=== PATIENT | female | born 1935 | race Caucasian/White ===

== ENCOUNTER 2019-11-08 11:29 | Emergency (ER) | payer MEDICARE, BC, SELFPAY ==
--- NOTE | ~2019-11-08 | XR_ITS ---
EXAMINATION: XR chest 2V DATE: 11/08/2019 12:35 INDICATION: Cough. TECHNIQUE: Frontal and lateral views of the chest were obtained. COMPARISON: Chest 2 views 10/08/2018, CT abdomen and pelvis 07/25/2017 FINDINGS: There is mild atelectasis at the lung bases. No pleural effusion or pneumothorax. The heart size is normal. IMPRESSION: 1. Mild atelectasis at the lung bases. Reviewed, dictated and finalized at location A. OR WINDOWS SYSTEMS ENGINEER
[2019-11-08 11:28] VITALS: BP 144/77; PULSE 79; RESP 14; TEMP 36.9; O2SAT 97
--- NOTE | 2019-11-08 11:58 | ED.URI ---
HPI - URI/Sore Throat General Chief Complaint: Unspecified Stated Complaint: Cough Time Seen by Provider: 11/08/19 11:34 Source: patient and RN notes reviewed Mode of arrival: EMS Limitations: no limitations History of Present Illness HPI Narrative: Pt is a 84 y/o female with a Hx of COPD, asthma, and bronchitis, who presents to the ED via EMS with c/o cough starting 2 days ago. She notes that she was recently evaluated by her PCP, Dr. Montes, 6 days ago. Pt states that she developed a non-productive cough 2 days ago. She notes that she has also had wheezing and intermittent sinus congestion. Pt states that she developed urinary frequency earlier this morning. She denies any fever, SOB, nausea, or vomiting. MD elicited complaint: cough Pertinent past history: COPD, asthma and other (bronchitis) Onset (ago): day(s) (2) Associated symptoms: nasal congestion and other (urinary frequency; wheezing) Related Data Home Medications Medication Instructions Recorded Confirmed albuterol sulfate 2.5 mg INHALATION Q4H PRN 08/17/19 albuterol sulfate 90 mcg/actuation 1 puff INHALATION Q4H PRN 08/17/19 aerosol inhaler alprazolam 1 mg tablet 0.5 mg PO TID PRN tablet 08/17/19 atorvastatin 10 mg tablet 10 mg PO DAILY 08/17/19 clopidogrel 75 mg tablet 75 mg PO DAILY 08/17/19 dicyclomine 20 mg tablet 20 mg PO TID 08/17/19 Allergies Allergy/AdvReac Type Severity Reaction Status Date / Time cephalexin Allergy Severe RASH Verified 11/02/19 09:49 niacin Allergy Mild HIVES Verified 11/02/19 09:49 Penicillins Allergy Mild HIVES Verified 11/02/19 09:49 codeine Allergy Unknown TYLENOL #3 Verified 11/02/19 09:49 STOMACH UPSET Review of Systems Review of Systems: Narrative: CONSTITUTIONAL: Denies fever, chills, or sweats. ENT: Denies rhinorrhea, sore throat, or otalgia. Reports sinus congestion. CARDIOVASCULAR: Denies chest pain, palpitations, or edema. RESPIRATORY: Reports cough and wheezing. Denies dyspnea. GASTROINTESTINAL: Denies abdominal pain, nausea, vomiting, or diarrhea. GENITOURINARY: Denies dysuria or hematuria. Reports urinary frequency. All systems reviewed & are unremarkable except as noted in HPI and below PMFSH Past Medical History Medical History Anxiety Arthritis Asthma Back pain Bronchitis Cataracts, bilateral Chronic kidney disease, stage 3 COPD (chronic obstructive pulmonary disease) DDD (degenerative disc disease) Depression Emphysema of lung Gastrointestinal ulcer GERD (gastroesophageal reflux disease) HTN (hypertension) IBS (irritable bowel syndrome) Inguinal hernia Low vitamin B12 level Low vitamin D level Osteoporosis TIA (transient ischemic attack) UTI (urinary tract infection) Surgical History Surgical History History of bladder surgery bladder tie-up Hx of bilateral hip replacements Hx of cataract surgery Hx of tonsillectomy Social History Social History Smoking status: Former smoker Exam Narrative: Exam Narrative: GENERAL: Well-appearing, well-nourished, and in no acute distress. HEAD: Normocephalic, atraumatic. EYES: PERRLA and EOMI. ENT: Nares clear, mild rhinorrhea,no epistaxis. Mucous membranes moist. NECK: Supple. CHEST: Upper airway rhonchi.. No respiratory distress. HEART: Regular rate and rhythm. No murmur heard. Normal peripheral pulses. ABDOMEN: Soft, nontender, nondistended, normal active bowel sounds. EXTREMITIES: Normal range of motion. No edema. SKIN: Warm, dry, no rash. NEURO: No focal deficits. Alert and oriented. Course Course Emergency Course: Patient presented for evaluation of cough and urinary frequency. Patient at the time of initial assessment is well-appearing, rhonchi in the upper airways, no wheezing or respiratory distress. IV access obtained and labs are drawn. No leukocytosis. Very mild hypokalemia.
[2019-11-08 12:09] VITALS: PULSE 81; RESP 18
[2019-11-08] MEDS: IPRATROPIUM BR 0.02% INH SOLN 0.5 MG/2.5 ML VIAL 1 MG INHALATION (12:09)
[2019-11-08] MEDS: ALBUTEROL SULFATE NEB 2.5 MG/0.5 ML INH 5 MG INHALATION (12:10)
[2019-11-08 12:14] LABS: Add Urine Microscopic? NO; Appearance Urine Clear (Clear); Bilirubin Urine Negative (Negative); Blood Urine Negative (Negative); Color Urine Colorless (Yellow); Glucose Urine UA Negative (Negative); Ketones Urine Negative (Negative); Leukocyte Esterase Ur Negative LEU/UL (Negative); Mucus Urine Rare /lpf; Nitrate Urine Negative (Negative); Protein Urine Negative (Negative); Specific Grav Ur 1.006 (1.001-1.035); Urobilinogen Urine Negative mg/dL (<2.0); WBC Urine 0-3 /hpf
[2019-11-08 12:22] VITALS: PULSE 90; RESP 18
[2019-11-08 12:33] LABS: Basophils Absolute Auto 0.1 K/mm3 (0.0-0.1); Basophils Percent Auto 0.7 % (0.2-1.2); Eosinophils Absolute Auto 0.2 K/mm3 (0-0.3); Eosinophils Percent Auto 1.7 % (0-4.4); Hematocrit 37.9 % (37.0-47.0); Hemoglobin 12.8 g/dL (12.0-15.0); Immature Granulocyte Absolute 0.21 K/mm3 (0.00-0.031); Immature Granulocyte Percent A 2.3 % (0-0.5); Lymphocytes Absolute Auto 1.82 K/mm3 (0.9-3.2); Lymphocytes Percent Auto 19.9 % (18.3-44.2); Mean Corpuscular HGB Conc 33.8 g/dl (32-36); Mean Corpuscular Hemoglobin 28.8 pg (26-34); Mean Corpuscular Volume 85.2 fl (80-100); Mean Platelet Volume 8.8 fl (7.4-10.4); Monocytes Percent Auto 10.7 % (2.6-8.5); Neutrophils Absolute Auto 5.9 K/mm3 (1.3-6.7); Neutrophils Percent Auto 64.7 % (45.5-73.1); Platelet Count Result 368 k/mm3 (150-375); Red Blood Count 4.45 M/mm3 (4.2-5.4); Red Cell Distribution Width 14.5 % (11.5-14.5); White Blood Count 9.2 K/mm3 (4.5-10.0)
[2019-11-08 12:47] LABS: Blood Urea Nitrogen 18 mg/dL (7-17); Calcium 9.2 mg/dL (8.4-10.2); Carbon Dioxide 31 mmol/L (22-30); Chloride 95 mmol/L (98-107); Estimated CRCL calculation 54 ml/min; Estimated Glomerular Filt Rate > 60; Glucose 96 mg/dL (65-105); Potassium 3.2 mmol/L (3.4-5.0); Sodium 138 mmol/L (137-145)
[2019-11-08 13:02] VITALS: BP 124/69; PULSE 103; RESP 17; O2SAT 94
[2019-11-08] MEDS: POTASSIUM CHLORIDE 20 MEQ PACKET (FOR LIQUID) 40 MEQ PO (13:07)
--- NOTE | 2019-11-08 13:13 | PC.NURSE ---
called three numbers for pt w/ no answers - pt req for ride home
[2019-11-08 13:47] VITALS: BP 103/79; PULSE 105; RESP 20; O2SAT 96
== END 2019-11-08 14:22 ==
PROVIDERS: Emergency Provider Emergency Medicine; PCP Family Medicine
DX: J45.909 Unspecified asthma, uncomplicated (principal); J43.9 Emphysema, unspecified; M19.90 Unspecified osteoarthritis, unspecified site; I12.9 Hypertensive chronic kidney disease with stage 1 through stage 4 chronic kidney disease, or unspecified chronic kidney disease; N18.3 Chronic kidney disease, stage 3 (moderate); K21.9 Gastro-esophageal reflux disease without esophagitis; K58.9 Irritable bowel syndrome, unspecified; F41.9 Anxiety disorder, unspecified; F32.9 Major depressive disorder, single episode, unspecified; M81.0 Age-related osteoporosis without current pathological fracture; Z86.73 Personal history of transient ischemic attack (TIA), and cerebral infarction without residual deficits; Z87.440 Personal history of urinary (tract) infections; Z96.643 Presence of artificial hip joint, bilateral; Z87.891 Personal history of nicotine dependence
CPT/HCPCS: 36415; 51701; 71046; 80048; 81003; 85025; 87804; 94640; 99283; A9270

== ENCOUNTER 2019-11-11 13:26 | Outpatient (CLI) | payer MEDICARE, BC, SELFPAY ==
[2019-11-11 14:29] LABS: Blood Urea Nitrogen 26 mg/dL (7-17); Calcium 9.6 mg/dL (8.4-10.2); Carbon Dioxide 31 mmol/L (22-30); Chloride 94 mmol/L (98-107); Estimated Glomerular Filt Rate 60; Glucose 135 mg/dL (65-105); Magnesium 1.5 mg/dL (1.6-2.3); Potassium 3.5 mmol/L (3.4-5.0); Sodium 136 mmol/L (137-145)
[2019-11-11 15:16] LABS: Vitamin D 25 Hydroxy 27.7 ng/mL
== END 2019-11-11 13:27 | disposition home or self-care (01) ==
LOC: ANHLAB 13:29
PROVIDERS: PCP Family Medicine; Visit Provider Nurse Practitioner Family
DX: N18.3 Chronic kidney disease, stage 3 (moderate) (principal); E55.9 Vitamin D deficiency, unspecified
CPT/HCPCS: 36415; 80048; 82306; 83735

== ENCOUNTER 2020-03-16 09:31 | Outpatient (CLI) | payer MEDICARE, BC, SELFPAY ==
[2020-03-16 10:22] LABS: Albumin Level 4.1 g/dL (3.5-5.1); Blood Urea Nitrogen 27 mg/dL (7-17); Calcium 9.1 mg/dL (8.4-10.2); Carbon Dioxide 29 mmol/L (22-30); Chloride 96 mmol/L (98-107); Estimated Glomerular Filt Rate 47; Glucose 143 mg/dL (65-105); Phosphorus 4.1 mg/dL (2.5-4.5); Sodium 137 mmol/L (137-145)
[2020-03-16 10:34] LABS: Parathyroid Intact 105.7 pg/mL (7.5-53.5)
[2020-03-16 11:07] LABS: Creatinine Urine 13.6 mg/dL; Total Protein Urine Random 11 mg/dL
== END 2020-03-16 09:32 | disposition home or self-care (01) ==
LOC: ANHLAB 09:34
PROVIDERS: PCP Family Medicine; Visit Provider Internal Medicine Nephrology
DX: N18.3 Chronic kidney disease, stage 3 (moderate) (principal); I12.9 Hypertensive chronic kidney disease with stage 1 through stage 4 chronic kidney disease, or unspecified chronic kidney disease; R80.8 Other proteinuria
CPT/HCPCS: 36415; 80069; 82306; 82570; 83970; 84156

== ENCOUNTER 2020-03-28 09:13 | Outpatient (CLI) | payer MEDICARE, BC, SELFPAY ==
--- NOTE | ~2020-03-28 | US_ITS ---
EXAMINATION: US renal BI EXAM DATE: 03/28/2020 10:04 INDICATION: Chronic kidney disease.. TECHNIQUE: Multiple grayscale and Doppler images of the kidneys were obtained (by a technologist who performed the scan) and subsequently reviewed. Comparison is made to prior examination from 7. FINDINGS: There is bilateral renal cortical thinning. Right kidney: There is normal contour and echogenicity. It measures 9.1 x 5.8 x 6.2 centimeters. Th ere are no focal renal lesions identified. There is no hydronephrosis. Left kidney: There is normal contour and echogenicity. It measures 11.3 x 5.9 x 6.1 centimeters. Th ere are no focal renal lesions identified. There is no hydronephrosis. Bladder unremarkable. IMPRESSION: 1. Mild bilateral renal cortical thinning. Reviewed, dictated and finalized at location A.
== END 2020-03-28 09:14 | disposition home or self-care (01) ==
PROVIDERS: PCP Family Medicine; Visit Provider Internal Medicine Nephrology
DX: N18.3 Chronic kidney disease, stage 3 (moderate) (principal)
CPT/HCPCS: 76775

== ENCOUNTER 2020-05-11 10:04 | Outpatient (CLI) | payer MEDICARE, BC, SELFPAY ==
--- NOTE | ~2020-05-11 | MM_ITS ---
EXAMINATION: MM screening christian BI w ebony HISTORY: Screening TECHNIQUE: Craniocaudal and mediolateral oblique 3-D tomosynthesis images were obtained and synthetic 2-D images were generated. CAD analysis was submitted and interpreted. COMPARISON: Comparison to multiple prior studies sequentially, with oldest reviewed study dated 12/29. BREAST PARENCHYMAL COMPOSITION: There are scattered areas of fibroglandular density. FINDINGS: There are developing calcifications in the upper outer quadrant of the left breast. The rig ht breast is stable without evidence for malignancy. IMPRESSION: 1. Developing clustered nonspecific left breast calcifications. 2. Magnification views are recommended. BI-RADS Category 0: Incomplete: Needs additional imaging evaluation. Reviewed, dictated and finalized at location A.
== END 2020-05-11 10:05 | disposition home or self-care (01) ==
LOC: ANHIMG 10:09
PROVIDERS: PCP Family Medicine; Visit Provider Family Medicine
DX: Z12.31 Encounter for screening mammogram for malignant neoplasm of breast (principal); R92.8 Other abnormal and inconclusive findings on diagnostic imaging of breast
CPT/HCPCS: 77063; 77067

== ENCOUNTER 2020-05-30 09:04 | Outpatient (CLI) | payer MEDICARE, BC, SELFPAY ==
[2020-05-30 10:29] LABS: Basophils Absolute Auto 0.1 K/mm3 (0.0-0.1); Basophils Percent Auto 0.7 % (0.2-1.2); Eosinophils Absolute Auto 0.4 K/mm3 (0-0.3); Eosinophils Percent Auto 4.1 % (0-4.4); Hematocrit 36.3 % (37.0-47.0); Immature Granulocyte Absolute 0.17 K/mm3 (0.00-0.031); Immature Granulocyte Percent A 1.6 % (0-0.5); Lymphocytes Absolute Auto 2.23 K/mm3 (0.9-3.2); Lymphocytes Percent Auto 21.2 % (18.3-44.2); Mean Corpuscular HGB Conc 33.1 g/dl (32-36); Mean Corpuscular Hemoglobin 28.6 pg (26-34); Mean Corpuscular Volume 86.4 fl (80-100); Mean Platelet Volume 9.5 fl (7.4-10.4); Monocytes Absolute Auto 0.9 K/mm3 (0.1-0.6); Monocytes Percent Auto 8.6 % (2.6-8.5); Neutrophils Absolute Auto 6.7 K/mm3 (1.3-6.7); Neutrophils Percent Auto 63.8 % (45.5-73.1); Platelet Count Result 424 k/mm3 (150-375); Red Cell Distribution Width 13.7 % (11.5-14.5); White Blood Count 10.5 K/mm3 (4.5-10.0)
[2020-05-30 10:47] LABS: Alanine Aminotransferase 20 U/L (4-35); Albumin Level 3.8 g/dL (3.5-5.1); Alkaline Phosphatase 96 U/L (38-126); Anion Gap 8 mmol/L (8-16); Aspartate Amino Transferase 24 U/L (14-36); Bilirubin,Total 0.6 mg/dL (0.2-1.3); Blood Urea Nitrogen 33 mg/dL (7-17); Calcium 9.1 mg/dL (8.4-10.2); Carbon Dioxide 33 mmol/L (22-30); Chloride 96 mmol/L (98-107); Estimated Glomerular Filt Rate 47; Glucose 119 mg/dL (65-105); Potassium 2.9 mmol/L (3.4-5.0); Sodium 137 mmol/L (137-145)
[2020-05-30 11:18] LABS: Vitamin D 25 Hydroxy 28.7 ng/mL
== END 2020-05-30 09:05 | disposition home or self-care (01) ==
PROVIDERS: PCP Family Medicine; Visit Provider Family Medicine
DX: K58.9 Irritable bowel syndrome, unspecified (principal); I10 Essential (primary) hypertension; E55.9 Vitamin D deficiency, unspecified; R79.89 Other specified abnormal findings of blood chemistry; E53.8 Deficiency of other specified B group vitamins
CPT/HCPCS: 36415; 80048; 80076; 82306; 82607; 84443; 85025

== ENCOUNTER 2020-06-15 11:54 | Outpatient (CLI) | payer MEDICARE, BC, SELFPAY ==
--- NOTE | ~2020-06-15 | MM_ITS ---
EXAMINATION: MM diagnostic mammo unilat LT HISTORY: Follow-up left breast calcifications TECHNIQUE: Additional 3-D tomosynthesis images of the left breast were performed and synthetic 2-D im ages were generated. CAD analysis was submitted and interpreted. COMPARISON: Comparison to multiple prior studies sequentially, with oldest reviewed study dated 01/04. BREAST PARENCHYMAL COMPOSITION: Breast composed of scattered areas of fibroglandular density FINDINGS: There are developing indeterminant left breast calcifications in the upper outer quadrant o f the left breast, middle third. There are no suspicious masses or architectural distortion. IMPRESSION: 1. Developing coarse indeterminate left breast calcifications, upper outer quadrant. 2. Stereotactic left breast biopsy recommended. BI-RADS category 4, suspicious findings. Reviewed, dictated and finalized at location A. IMPRESSION: 1. Developing coarse indeterminate left breast calcifications, upper outer quad rant. 2. Stereotactic left breast biopsy recommended. BI-RADS category 4, suspicious findings.
== END 2020-06-15 11:55 | disposition home or self-care (01) ==
LOC: ANHIMG 11:58
PROVIDERS: PCP Family Medicine; Visit Provider Family Medicine
DX: R92.8 Other abnormal and inconclusive findings on diagnostic imaging of breast (principal)
CPT/HCPCS: 77065

== ENCOUNTER 2020-07-11 09:12 | Outpatient (CLI) | payer MEDICARE, BC, SELFPAY ==
[2020-07-11 11:14] LABS: Anion Gap 10 mmol/L (8-16); Blood Urea Nitrogen 39 mg/dL (7-17); Calcium 9.2 mg/dL (8.4-10.2); Carbon Dioxide 36 mmol/L (22-30); Chloride 93 mmol/L (98-107); Estimated Glomerular Filt Rate 36; Glucose 97 mg/dL (65-105); Phosphorus 3.3 mg/dL (2.5-4.5); Potassium 2.9 mmol/L (3.4-5.0); Sodium 139 mmol/L (137-145)
[2020-07-11 11:33] LABS: Creatinine Urine 37.4 mg/dL; Total Protein Urine Random 11 mg/dL
== END 2020-07-11 09:13 | disposition home or self-care (01) ==
PROVIDERS: PCP Family Medicine; Visit Provider Internal Medicine Nephrology
DX: I12.9 Hypertensive chronic kidney disease with stage 1 through stage 4 chronic kidney disease, or unspecified chronic kidney disease (principal); N18.30 Chronic kidney disease, stage 3 unspecified; R80.8 Other proteinuria
CPT/HCPCS: 36415; 80069; 82570; 84156

== ENCOUNTER 2020-08-22 08:23 | Outpatient (CLI) | payer MEDICARE, BC, SELFPAY ==
[2020-08-22 09:08] LABS: Albumin Level 3.8 g/dL (3.5-5.1); Anion Gap 8 mmol/L (8-16); Blood Urea Nitrogen 35 mg/dL (7-17); Calcium 8.9 mg/dL (8.4-10.2); Carbon Dioxide 34 mmol/L (22-30); Chloride 96 mmol/L (98-107); Estimated Glomerular Filt Rate 39; Glucose 110 mg/dL (65-105); Phosphorus 4.2 mg/dL (2.5-4.5); Potassium 3.9 mmol/L (3.4-5.0); Sodium 138 mmol/L (137-145)
== END 2020-08-22 08:24 | disposition home or self-care (01) ==
PROVIDERS: PCP Family Medicine; Visit Provider Internal Medicine Nephrology
DX: N18.32 Chronic kidney disease, stage 3b (principal)
CPT/HCPCS: 36415; 80069

== ENCOUNTER 2020-09-14 12:04 | Outpatient (CLI) | payer MEDICARE, BC, SELFPAY ==
--- NOTE | ~2020-09-14 | MM_ITS ---
MM post biopsy diagnostic LT, MM stereotactic specimen LT, MM stereotactic bx LT EXAMINATION: MM post biopsy diagnostic LT, MM stereotactic specimen LT, MM stereotactic bx LT DATE: Roman Finney M.D. INDICATION: Abnormal mammogram with calcifications in the left breast. Stereotactic core biopsy is r equested evaluate for malignancy.] TECHNIQUE AND FINDINGS: The risks and potential benefits of the procedure were discussed with the patient and written informe d consent was obtained. The patient was placed in the prone position clustered at the table with the left breast in craniocaudal compression, and the area of interest was localized and targeted utilizi ng digital imaging with stereotaxis. After sterile preparation of the skin, 1% lidocaine was utilized for local anesthesia at the skin pun cture site and 1% lidocaine with epinephrine was utilized for deeper local anesthesia/is about the bi opsy site. A 9G Sepaton vacuum assisted biopsy needle was advanced to the level of the calcification o f interest from a cephalad approach utilizing stereotactic guidance and a total of 6 tissue core biop sies were obtained. A specimen radiograph demonstrates that the calcifications of interest are included within the tissue cores. A tissue marker clip was then placed at the biopsy site. The needle was removed and hemosta sis was achieved. The patient tolerated the procedure well and there is no evidence of significant i mmediate complication. The patient was given verbal as well as written postprocedural instructions p rior to discharge from the department. Tissue cores were submitted to surgical pathology for histolo gic analysis. A 2-view left unilateral digital mammogram was obtained post procedure and this demonstrates that the tissue marker clip is in expected position.] IMPRESSION: 1. Successful stereotactic biopsy of calcifications in the upper outer quadrant of the left breast, followed by tissue marker clip placement. Please refer to pathology report for histologic analysis. Reviewed, dictated and finalized at location A. ITORY REPRESENTATIVE IMPRESSION: 1. Successful stereotactic biopsy of calcifications in the upper outer quadran t of the left breast, followed by tissue marker clip placement. Please refer t o pathology report for histologic analysis. IMPRESSION: 1. Successful stereotactic biopsy of calcifications in the upper outer quadran t of the left breast, followed by tissue marker clip placement. Please refer t o pathology report for histologic analysis.
== END 2020-09-14 12:05 | disposition home or self-care (01) ==
PROVIDERS: PCP Family Medicine; Visit Provider Family Medicine
DX: R92.8 Other abnormal and inconclusive findings on diagnostic imaging of breast (principal)
CPT/HCPCS: 19081; 77065; 88305; A4648

== ENCOUNTER 2020-09-26 09:58 | Outpatient (CLI) | payer MEDICARE, BC, SELFPAY ==
[2020-09-26 10:40] LABS: Basophils Absolute Auto 0.1 K/mm3 (0.0-0.1); Basophils Percent Auto 0.7 % (0.2-1.2); Eosinophils Absolute Auto 0.5 K/mm3 (0-0.3); Eosinophils Percent Auto 4.3 % (0-4.4); Hematocrit 37.3 % (37.0-47.0); Hemoglobin 12.2 g/dL (12.0-15.0); Immature Granulocyte Absolute 0.25 K/mm3 (0.00-0.031); Immature Granulocyte Percent A 2.3 % (0-0.5); Lymphocytes Absolute Auto 2.38 K/mm3 (0.9-3.2); Lymphocytes Percent Auto 22.1 % (18.3-44.2); Mean Corpuscular HGB Conc 32.7 g/dl (32-36); Mean Corpuscular Volume 88.8 fl (80-100); Mean Platelet Volume 8.9 fl (7.4-10.4); Monocytes Absolute Auto 1.1 K/mm3 (0.1-0.6); Monocytes Percent Auto 10.1 % (2.6-8.5); Neutrophils Absolute Auto 6.5 K/mm3 (1.3-6.7); Neutrophils Percent Auto 60.5 % (45.5-73.1); Platelet Count Result 396 k/mm3 (150-375); Red Cell Distribution Width 14.2 % (11.5-14.5); White Blood Count 10.8 K/mm3 (4.5-10.0)
[2020-09-26 10:51] LABS: Anion Gap 7 mmol/L (8-16); Blood Urea Nitrogen 33 mg/dL (7-17); Calcium 9.1 mg/dL (8.4-10.2); Carbon Dioxide 34 mmol/L (22-30); Chloride 94 mmol/L (98-107); Estimated Glomerular Filt Rate 22; Glucose 100 mg/dL (65-105); Potassium 3.2 mmol/L (3.4-5.0); Sodium 135 mmol/L (137-145)
[2020-09-26 11:42] LABS: Vitamin D 25 Hydroxy 42.8 ng/mL
== END 2020-09-26 09:59 | disposition home or self-care (01) ==
PROVIDERS: PCP Family Medicine; Visit Provider Family Medicine
DX: N18.31 Chronic kidney disease, stage 3a (principal); E55.9 Vitamin D deficiency, unspecified; R79.89 Other specified abnormal findings of blood chemistry; E53.8 Deficiency of other specified B group vitamins
CPT/HCPCS: 36415; 80048; 82306; 82607; 85025

== ENCOUNTER 2020-10-03 10:00 | Outpatient (RCR) | payer MEDICARE, BC, SELFPAY ==
--- NOTE | 2020-09-21 13:48 | PTOPEVAL ---
PHYSICAL THERAPY EVALUATION AND PLAN OF CARE 09-21-2020 Thank you for referring Lucille Vasques to [facility].? She is scheduled to be seen for therapy? 2x/week for 5 weeks. Please review, sign, date and return this plan of care CHRISTINA. I agree with and certify that the following plan of care is medically necessary. 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 software engineer; Respiratory History Hx Asthma Yes Hx Bronchitis Yes Hx Chronic Obstructive Pulmonary Disease Yes (COPD) Hx Emphysema Yes Gastrointestinal History Hx Gastroesophageal Reflux Disease Yes Genitourinary History Hx Other Genitourinary Disorders Yes: stage 3A kidney disease; Musculoskeletal History Hx Arthritis Yes: all over Hx Back Pain Yes Hx Joint Replacement Yes: R and L THR; Hx Other Musculoskeletal Disorders Yes: R hip non surgical fracture 2019; Endocrine History Hx Hypothyroidism Yes: on med Other History Hx Other Medical Conditions Yes: current UTI- on meds;had breast biopsy last wk-negative Evaluation Information Problem Diagnosis B LE lymphedema Onset about 1 yr ago Prior Level of Function Activity Level (Last 3 Months) Occupation retired Hand Dominance Right Home Setting Home Type Apartment,Assisted Living Facility Mobility Assistive Devices (Used Last 3 Walker, Rollator Months) Comments Additional Prior Level of Function live in assisted living [facility]; she has assist with dressing, showers,meal prep, housekeeping, laundry; Was receiving therapy at [facility], but stopped since coming here, working on leg exercises, walking, balance; attend daily exercise classes at [facility] [place], sitting in chair; Pain Assessment Timing of Pain Assessment Timing of Pain Ass
--- NOTE | 2020-10-04 11:33 | PCPTNOTE ---
PHYSICAL THERAPY DISCHARGE 10-04-20 Attending Provider: Maritza Gutierrez MD Patient:Lucille Vasques Date of :1935 Mrs. Vasques has received 3 PT sessions, for the diagnosis of LE lymphedema. With the circumferential measurements of her legs, from the bottom of the foot up to 64 cm: R LE is 632.6 cm, decreased 6.7 cm and L LE is 631.1 cm, decreased by 6 cm, compared to the initial evaluation. There is less redness and not any fibrotic tissue over her lower legs. She has 15-20 mmHg compression knee highs to manage her lymphedema. The staff at the assisted living facility are assisting her with them. Lucille has been educated on self management of lymphedema, skin care, compression garment, LE exercises and self manual lymph drainage. She does not have any pain in her legs and the strength has increased. She will be discharged at this time. Lucille stated she wants to continue with the balance and strengthening therapy at the assisted living facility. The goals were partially achieved. Thank you for referring Mrs. Vasques to [facility]. Please review, sign, date and return this discharge summary CHRISTINA. I have been updated about the patient's current status and I agree with discharge from the above service at this time. Referring Physician Date
== END 2020-10-05 10:06 | disposition home or self-care (01) ==
LOC: ANHPT 10:00
PROVIDERS: PCP Family Medicine; Visit Provider Internal Medicine Nephrology
DX: I89.0 Lymphedema, not elsewhere classified (principal); R60.0 Localized edema; R53.1 Weakness
CPT/HCPCS: 97110; 97140; 97161

== ENCOUNTER 2020-11-02 08:58 | Outpatient (CLI) | payer MEDICARE, BC, SELFPAY ==
[2020-11-02 10:15] LABS: Albumin Level 3.8 g/dL (3.5-5.1); Anion Gap 8 mmol/L (8-16); Blood Urea Nitrogen 26 mg/dL (7-17); Carbon Dioxide 31 mmol/L (22-30); Chloride 99 mmol/L (98-107); Estimated Glomerular Filt Rate 36; Glucose 114 mg/dL (65-105); Phosphorus 3.3 mg/dL (2.5-4.5); Potassium 3.3 mmol/L (3.4-5.0); Sodium 138 mmol/L (137-145)
[2020-11-02 10:26] LABS: Parathyroid Intact 114.7 pg/mL (7.5-53.5)
[2020-11-02 10:53] LABS: Free T4 Free Thyroxine 1.29 ng/mL (0.78-2.19); Vitamin D 25 Hydroxy 50.4 ng/mL
== END 2020-11-02 08:59 | disposition home or self-care (01) ==
PROVIDERS: PCP Family Medicine; Referring Provider Internal Medicine Nephrology; Visit Provider Family Medicine
DX: R60.0 Localized edema (principal); I12.9 Hypertensive chronic kidney disease with stage 1 through stage 4 chronic kidney disease, or unspecified chronic kidney disease; N18.32 Chronic kidney disease, stage 3b; E03.9 Hypothyroidism, unspecified
CPT/HCPCS: 36415; 80069; 82306; 83970; 84439; 84443

== ENCOUNTER 2021-03-15 09:22 | Outpatient (CLI) | payer MEDICARE, BC, SELFPAY ==
[2021-03-15 10:16] LABS: Creatinine Urine 31.5 mg/dL; Total Protein Urine Random 11 mg/dL; Ur Ttl Prot Creatinine Ratio 0.35 mg/mg (0-0.20)
[2021-03-15 10:26] LABS: Albumin Level 3.6 g/dL (3.5-5.1); Anion Gap 7 mmol/L (8-16); Blood Urea Nitrogen 18 mg/dL (7-17); Calcium 9.2 mg/dL (8.4-10.2); Carbon Dioxide 29 mmol/L (22-30); Chloride 102 mmol/L (98-107); Estimated Glomerular Filt Rate 39; Glucose 96 mg/dL (65-105); Phosphorus 4.1 mg/dL (2.5-4.5); Potassium 4.5 mmol/L (3.4-5.0); Sodium 138 mmol/L (137-145)
== END 2021-03-15 09:23 | disposition home or self-care (01) ==
PROVIDERS: PCP Family Medicine; Referring Provider Family Medicine; Visit Provider Internal Medicine Nephrology
DX: N18.32 Chronic kidney disease, stage 3b (principal); I12.9 Hypertensive chronic kidney disease with stage 1 through stage 4 chronic kidney disease, or unspecified chronic kidney disease; R60.0 Localized edema
CPT/HCPCS: 36415; 80069; 82570; 84156

== ENCOUNTER 2021-03-19 02:42 | Day surgery (SDC) | payer MEDICARE, BC, SELFPAY ==
[2021-02-26 11:31] VITALS: BMI 37.8
[2021-03-19 09:22] VITALS: BP 150/74; PULSE 91; RESP 20; TEMP 36.2; O2SAT 98; BMI 37.1
--- NOTE | 2021-03-19 09:26 | WPDGICN ---
Assessment and Plan Assessment and plan (1) Vomiting: Code(s): R11.10 - Vomiting, unspecified Status: Acute Assessment and Plan: Patient complains of vomiting phlegm. Plan is for EGD to assess esophagus and stomach. It is uncertain whether this could be coming from throat production of phlegm or respiratory system as well. Further recommendations will be given after endoscopy. Patient has been treated with Nexium 40 mg p.o. daily and also given a trial of Zofran with no significant change in her vomiting. GI Consult Note Consult date/time: 03/19/21 09:26 HPI: Lucille Vasques is a 85 year old female Continues to complain of vomiting frequently. She states that she vomits phlegm. She states it is uncertain if it comes from her throat her stomach or her lungs. She denies any dysphagia. She does have abdominal pain that improves with bowel habits. She has had no bleeding or weight loss. Recently has complaints of poor dentition for which she anticipates seeing a dentist. She presents today for EGD because of complaints of vomiting phlegm. Review of Systems Review of Systems: All systems reviewed & are unremarkable except as noted in HPI and below PMFSH Past Medical History Medical History Anxiety Arthritis Asthma Back pain BMI 36.0-36.9,adult BMI 37.0-37.9, adult BMI 38.0-38.9,adult Bronchitis Cataracts, bilateral Chronic kidney disease, stage 3 COPD (chronic obstructive pulmonary disease) DDD (degenerative disc disease) Depression Emphysema of lung Gastrointestinal ulcer GERD (gastroesophageal reflux disease) HTN (hypertension) Hypothyroidism IBS (irritable bowel syndrome) Inguinal hernia Low vitamin B12 level Low vitamin D level Mild intermittent asthma without complication Osteoporosis Screening mammogram for high-risk patient TIA (transient ischemic attack) UTI (urinary tract infection) Ventral hernia without obstruction or gangrene Vitamin D deficiency Weakness Surgical History Surgical History History of bladder surgery bladder tie-up Hx of bilateral hip replacements Hx of cataract surgery Hx of tonsillectomy Family History Family History Mother Family history of suicide Patient's mother is Father Patient's father is , Onset Age: 76 Family history of malignant neoplasm Other Family history of cardiovascular disease Family history of coronary artery disease Hypertension Social History Social History Tobacco type: cigarettes Alcohol intake: never Substance use: never Substance use type: does not use Living arrangements: assisted living Additional living arrangements comments: [facility] Gender identity (if verbalized by the patient): Female Spiritual care concerns: No Meds Home Medications and Allergies Home Medications Medication Instructions Recorded Confirmed Type atorvastatin 10 mg tablet 10 mg PO DAILY 08/17/19 03/08/21 History albuterol sulfate 2.5 mg INHALATION Q4H PRN #90 ml 11/11/19 03/08/21 Rx cholecalciferol (vitamin D3) 125 125 mcg PO DAILY #30 cap 04/18/20 03/08/21 Rx mcg (5,000 unit) capsule vitamins B1 B6 B12 oral liquid 5 ml PO DAILY #240 ml 04/18/20 03/08/21 Rx potassium chloride 10 mEq 20 meq PO BID #60 tablet 06/06/20 03/08/21 Rx tablet,extended release bumetanide 2 mg tablet 2 mg PO BID 09/19/20 03/08/21 History spironolactone 25 mg tablet 12.5 mg PO DAILY tablet 09/19/20 03/08/21 History albuterol sulfate 90 mcg/actuation 2 puff INHALATION Q4H PRN #8.5 g 10/31/20 03/08/21 Rx aerosol inhaler fluticasone propionate 110 2 puff INHALATION .QD #12 g 10/31/20 03/08/21 Rx mcg/actuation HFA aerosol inhaler levothyroxine 75 mcg tablet 75 mcg PO DAILY #30 tablet 11/20/20
[2021-03-19] MEDS: LACTATED RINGERS 1,000 ML 150 ML IV CONT (09:37)
--- NOTE | 2021-03-19 09:42 | WPDANESEPPF ---
Anes - Initial Pre Proc Eval Procedure: Operation Date: 03/19/21 10:00 Proposed Procedures p Esophagogastroduodenoscopy - Johnny Iniguez MD Date/Time: 03/19/21 09:42 Surgeon: Johnny Iniguez MD Pre Op Diagnosis: vomiting, GERD Patient Data Age: 85 Gender: F Height: 1.68 m Weight: 104.5 kg Last Vital Signs Temp 36.2 C L 03/19/21 09:22 Pulse 91 03/19/21 09:22 Resp 20 03/19/21 09:22 BP 150/74 H 03/19/21 09:22 Pulse Ox 98 03/19/21 09:22 Allergies Allergy/AdvReac Type Severity Reaction Status Date / Time cephalexin Allergy Severe RASH Verified 03/19/21 09:21 codeine Allergy Unknown Unknown Verified 03/19/21 09:21 niacin Allergy Unknown Unknown Verified 03/19/21 09:21 Penicillins Allergy Unknown Unknown Verified 03/19/21 09:21 ciprofloxacin [From Cipro] AdvReac Mild GI upset Verified 03/19/21 09:21 Home Medications Medication Instructions Recorded Confirmed Type atorvastatin 10 mg tablet 10 mg PO DAILY 08/17/19 03/08/21 History albuterol sulfate 2.5 mg INHALATION Q4H PRN #90 ml 11/11/19 03/08/21 Rx cholecalciferol (vitamin D3) 125 125 mcg PO DAILY #30 cap 04/18/20 03/08/21 Rx mcg (5,000 unit) capsule vitamins B1 B6 B12 oral liquid 5 ml PO DAILY #240 ml 04/18/20 03/08/21 Rx potassium chloride 10 mEq 20 meq PO BID #60 tablet 06/06/20 03/08/21 Rx tablet,extended release bumetanide 2 mg tablet 2 mg PO BID 09/19/20 03/08/21 History spironolactone 25 mg tablet 12.5 mg PO DAILY tablet 09/19/20 03/08/21 History albuterol sulfate 90 mcg/actuation 2 puff INHALATION Q4H PRN #8.5 g 10/31/20 03/08/21 Rx aerosol inhaler fluticasone propionate 110 2 puff INHALATION .QD #12 g 10/31/20 03/08/21 Rx mcg/actuation HFA aerosol inhaler levothyroxine 75 mcg tablet 75 mcg PO DAILY #30 tablet 11/20/20 03/08/21 Rx bismuth subsalicylate 262 mg tablet 2 tablet PO Q30-60M PRN #30 tablet 01/11/21 03/08/21 Rx calcium polycarbophil 625 mg tablet 1,250 mg PO DAILY #90 tablet 01/11/21 03/08/21 Rx clopidogrel 75 mg tablet 75 mg PO DAILY #30 tablet 01/24/21 03/08/21 Rx irbesartan 300 mg tablet 300 mg PO DAILY #30 tablet 01/26/21 03/08/21 Rx docusate sodium 100 mg capsule 100 mg PO DAILY #30 cap 02/08/21 03/08/21 Rx escitalopram oxalate 10 mg tablet 10 mg PO DAILY 02/08/21 03/08/21 History esomeprazole magnesium 40 mg 40 mg PO DAILY #30 cap 02/08/21 03/08/21 Rx capsule,delayed release alprazolam 0.5 mg tablet 0.5 mg PO QID #120 tablet 02/22/21 03/08/21 Rx metolazone 5 mg tablet See Rx Instructions .ROUTE 02/26/21 03/19/21 Rx .COMPLEX #90 tablet montelukast 10 mg tablet 10 mg PO DAILY #90 tablet 02/26/21 03/19/21 Rx amlodipine 5 mg tablet 5 mg PO DAILY #30 tablet 03/07/21 03/19/21 Rx ondansetron HCl 4 mg tablet 4 mg PO DAILY PRN #30 tablet 03/14/21 03/19/21 Rx Patient hx anesthesia problems: none Family hx anesthesia problems: none PMFSH Past Medical History Medical History Anxiety Arthritis Asthma Back pain BMI 36.0-36.9,adult BMI 37.0-37.9, adult BMI 38.0-38.9,adult Bronchitis Cataracts, bilateral Chronic kidney disease, stage 3 COPD (chronic obstructive pulmonary disease) DDD (degenerative disc disease) Depression Emphysema of lung Gastrointestinal ulcer GERD (gastroesophageal reflux disease) HTN (hypertension) Hypothyroidism IBS (irritable bowel syndrome) Inguinal hernia Low vitamin B12 level Low vitamin D level Mild intermittent asthma without complication Osteoporosis Screening mammogram for high-risk patient TIA (transient ischemic attack) UTI (urinary tract infection) Ventral hernia without obstruction or gangrene Vitamin D deficiency Weakness Surgical History Surgical History History of bladder surgery bladder tie-up Hx of bilateral hip replacements Hx of cataract surgery Hx of tonsillectomy Family History Family History M
[2021-03-19] MEDS: BENZOCAINE (*SP) 60 ML SPRAY CAN (HURRICAINE) 1 SPRAY MUCOUS MEM (10:04)
[2021-03-19 10:06] VITALS: BP 121/71; PULSE 76; RESP 20; O2SAT 99
[2021-03-19 10:16] VITALS: BP 138/76; PULSE 72; RESP 20; O2SAT 98
[2021-03-19 10:26] VITALS: BP 153/56; PULSE 74; RESP 22; O2SAT 98
--- NOTE | 2021-03-19 10:36 | SUR.PHASEII ---
PER DR MARTINEZ PT TO RESUME PLAVIX TODAY, PT STATES UNDERSTANDING
== END 2021-03-19 10:42 | disposition home or self-care (01) ==
PROVIDERS: PCP Family Medicine; Visit Provider Internal Medicine Gastroenterology
PROC: 0DJ08ZZ Inspection of Upper Intestinal Tract, Via Natural or Artificial Opening Endoscopic (ICD-10-PCS; CPT 43235; principal; 2021-03-19 10:00)
DX: Q39.4 Esophageal web (principal); R11.10 Vomiting, unspecified; I12.9 Hypertensive chronic kidney disease with stage 1 through stage 4 chronic kidney disease, or unspecified chronic kidney disease; N18.30 Chronic kidney disease, stage 3 unspecified; E03.9 Hypothyroidism, unspecified; K21.9 Gastro-esophageal reflux disease without esophagitis; J44.9 Chronic obstructive pulmonary disease, unspecified; F41.8 Other specified anxiety disorders; K58.9 Irritable bowel syndrome, unspecified; E55.9 Vitamin D deficiency, unspecified; E53.8 Deficiency of other specified B group vitamins; M81.0 Age-related osteoporosis without current pathological fracture; J45.20 Mild intermittent asthma, uncomplicated; Z86.73 Personal history of transient ischemic attack (TIA), and cerebral infarction without residual deficits; Z87.11 Personal history of peptic ulcer disease; Z79.51 Long term (current) use of inhaled steroids; Z79.02 Long term (current) use of antithrombotics/antiplatelets; E66.9 Obesity, unspecified; Z68.37 Body mass index [BMI] 37.0-37.9, adult
CPT/HCPCS: 43450; 43235; J2704; J7120

== ENCOUNTER 2021-05-15 09:25 | Outpatient (CLI) | payer MEDICARE, BC, SELFPAY ==
[2021-05-15 09:57] LABS: Hematocrit 36.7 % (37.0-47.0); Mean Corpuscular HGB Conc 32.7 g/dl (32-36); Mean Corpuscular Hemoglobin 27.4 pg (26-34); Mean Corpuscular Volume 83.8 fl (80-100); Mean Platelet Volume 8.8 fl (7.4-10.4); Platelet Count Result 469 k/mm3 (150-375); Red Blood Count 4.38 M/mm3 (4.2-5.4); Red Cell Distribution Width 14.6 % (11.5-14.5); White Blood Count 15.6 K/mm3 (4.5-10.0)
[2021-05-15 10:14] LABS: Anion Gap 10 mmol/L (8-16); Blood Urea Nitrogen 49 mg/dL (7-17); Calcium 9.6 mg/dL (8.4-10.2); Carbon Dioxide 31 mmol/L (22-30); Chloride 92 mmol/L (98-107); Estimated Glomerular Filt Rate 25; Glucose 132 mg/dL (65-110); Potassium 4.1 mmol/L (3.4-5.0); Sodium 133 mmol/L (137-145)
[2021-05-15 12:53] LABS: Free T4 Free Thyroxine 1.46 ng/mL (0.78-2.19); Vitamin D 25 Hydroxy 41.6 ng/mL
== END 2021-05-15 09:26 | disposition home or self-care (01) ==
PROVIDERS: PCP Family Medicine; Visit Provider Family Medicine
DX: N18.31 Chronic kidney disease, stage 3a (principal); E03.9 Hypothyroidism, unspecified; E53.8 Deficiency of other specified B group vitamins; I10 Essential (primary) hypertension; E55.9 Vitamin D deficiency, unspecified; R79.89 Other specified abnormal findings of blood chemistry
CPT/HCPCS: 36415; 80048; 82306; 82607; 84439; 84443; 85027

== ENCOUNTER 2021-05-15 12:23 | Emergency (ER) | payer MEDICARE, BC, SELFPAY ==
--- NOTE | ~2021-05-15 | CT_ITS ---
EXAMINATION: CT abdomen pelvis wo con DATE: 05/15/2021 20:31 INDICATION: Abdominal pain TECHNIQUE: Computed tomography (CT) of the abdomen and pelvis was performed without intravenous contr ast. The dose-length product was 1352.33 mGy-cm. Automated exposure control and iterative reconstruct ion technique were employed. COMPARISON: None. FINDINGS: There is dependent atelectasis in the lung bases. There is atherosclerosis of the coronary arteries and aorta. No aneurysm. There are bilateral adrenal adenomas, largest in the right adrenal g land measuring 2.5 cm. The spleen, pancreas, and kidneys are unremarkable. There is nodular appearanc e to the liver surface, suspicious for cirrhosis. There are gallstones. Gallbladder is distended. The re are is right renal arterial calcification. Nonobstructive bowel gas pattern. Colonic diverticulosi s without evidence for diverticulitis. There is a fat-containing umbilical hernia. No free air or arpita e fluid. There are bilateral hip arthroplasties. Severe lumbar spondylosis. IMPRESSION: 1. Cholelithiasis. 2: Bilateral adrenal adenomas. 3: Nodular appearance to the liver surface, suspicious for cirrhosis. Reviewed, dictated and finalized at location A.
[2021-05-15 14:08] LABS: Basophils Absolute Auto 0.1 K/mm3 (0.0-0.1); Basophils Percent Auto 0.5 % (0.2-1.2); Eosinophils Absolute Auto 0.2 K/mm3 (0-0.3); Eosinophils Percent Auto 1.3 % (0-4.4); Hematocrit 37.5 % (37.0-47.0); Hemoglobin 12.3 g/dL (12.0-15.0); Immature Granulocyte Absolute 0.25 K/mm3 (0.00-0.031); Immature Granulocyte Percent A 1.5 % (0-0.5); Lymphocytes Absolute Auto 2.08 K/mm3 (0.9-3.2); Lymphocytes Percent Auto 12.5 % (18.3-44.2); Mean Corpuscular HGB Conc 32.8 g/dl (32-36); Mean Corpuscular Hemoglobin 27.5 pg (26-34); Mean Corpuscular Volume 83.7 fl (80-100); Mean Platelet Volume 9.1 fl (7.4-10.4); Monocytes Absolute Auto 1.2 K/mm3 (0.1-0.6); Monocytes Percent Auto 7.4 % (2.6-8.5); Neutrophils Absolute Auto 12.8 K/mm3 (1.3-6.7); Neutrophils Percent Auto 76.8 % (45.5-73.1); Platelet Count Result 465 k/mm3 (150-375); Red Blood Count 4.48 M/mm3 (4.2-5.4); Red Cell Distribution Width 14.7 % (11.5-14.5); White Blood Count 16.6 K/mm3 (4.5-10.0)
[2021-05-15 14:23] LABS: Anion Gap 11 mmol/L (8-16); Blood Urea Nitrogen 48 mg/dL (7-17); Carbon Dioxide 31 mmol/L (22-30); Chloride 92 mmol/L (98-107); Potassium 3.8 mmol/L (3.4-5.0); Sodium 134 mmol/L (137-145)
[2021-05-15 14:24] LABS: Alanine Aminotransferase 20 U/L (4-35); Albumin Level 4.3 g/dL (3.5-5.1); Alkaline Phosphatase 129 U/L (38-126); Aspartate Amino Transferase 23 U/L (14-36); Bilirubin,Total 0.4 mg/dL (0.2-1.3); Calcium 9.6 mg/dL (8.4-10.2); Estimated Glomerular Filt Rate 29; Glucose 117 mg/dL (65-110); Lipase 132 U/L (23-300)
[2021-05-15 14:36] VITALS: BP 121/62; PULSE 87; RESP 14; TEMP 36.6; O2SAT 99
[2021-05-15 14:40] LABS: Add Urine Microscopic? YES; Appearance Urine Cloudy (Clear); Bacteria Urine Trace /hpf; Bilirubin Urine Negative (Negative); Budding Yeast Urine Present /hpf; Color Urine Yellow (Yellow); Glucose Urine UA Negative (Negative); Ketones Urine Negative (Negative); Leukocyte Esterase Ur 3+ LEU/UL (Negative); Mucus Urine Rare /lpf; Nitrate Urine Negative (Negative); Protein Urine Negative (Negative); RBC Urine 0-2 /hpf (0-2); Specific Grav Ur 1.014 (1.001-1.035); Squamous Epithelial Cell Urine Moderate /hpf (Few); Transitional Epi Cells Urine Occasional /hpf (None Seen); Urobilinogen Urine Negative mg/dL (<2.0); WBC Clumps Urine Present /HPF; WBC Urine >75 /hpf
[2021-05-15 14:42] LABS: Blood Urine Negative (Negative)
[2021-05-15 16:28] VITALS: BP 138/67; PULSE 81; RESP 18; TEMP 36.2; O2SAT 97
[2021-05-15 19:46] VITALS: BP 129/65; PULSE 93; RESP 20; TEMP 36.4; O2SAT 97
[2021-05-15 20:17] VITALS: BP 155/72; PULSE 90; RESP 11; TEMP 36.6; O2SAT 97
[2021-05-15] MEDS: SODIUM CHLORIDE 0.9% IV 1,000 ML 999 ML IV CONT (20:36)
--- NOTE | 2021-05-15 20:36 | PC.NURSE ---
pt unable to give urine sample at this time and declining a straight cath.
--- NOTE | 2021-05-15 21:00 | ED.GENADULT ---
HPI - General Adult General Chief complaint: Nausea/Vomiting/Diarrhea Stated complaint: diarrhea, abd pain Time Seen by Provider: 05/15/21 20:12 Source: patient and RN notes reviewed History of Present Illness HPI narrative: Patient is a 85 y/o female complaining of moderate generalized abdominal pain since yesterday. She rates her pain as 8/10. She took Tylenol, which did not help. She has some diarrhea, but no vomiting. Related Data Home Medications Medication Instructions Recorded Confirmed spironolactone 25 mg tablet 12.5 mg PO DAILY tablet 09/19/20 05/10/21 escitalopram oxalate 10 mg tablet 10 mg PO DAILY 02/08/21 05/10/21 ascorbate calcium (vitamin C) 500 500 mg PO DAILY 05/10/21 05/10/21 mg tablet Allergies Allergy/AdvReac Type Severity Reaction Status Date / Time cephalexin Allergy Severe RASH Verified 05/15/21 20:20 codeine Allergy Unknown Unknown Verified 05/15/21 20:20 niacin Allergy Unknown Unknown Verified 05/15/21 20:20 Penicillins Allergy Unknown Unknown Verified 05/15/21 20:20 ciprofloxacin [From Cipro] AdvReac Mild GI upset Verified 05/15/21 20:20 Review of Systems Constitutional: Constitutional: Denies chills, Denies fever(s), Denies headache(s) and Denies weakness Eyes: Eyes: Denies blurry vision ENT: Denies headache(s) and Denies neck pain Cardiovascular: Cardiovascular: Denies chest pain and Denies dyspnea Respiratory: Respiratory: Denies cough and Denies dyspnea Gastrointestinal: Gastrointestinal: Reports abdominal pain, Reports diarrhea, Denies nausea and Denies vomiting Genitourinary: Genitourinary: Denies hematuria and Denies dysuria Musculoskeletal: Musculoskeletal: Denies back pain and Denies neck pain Neurologic: Denies headache(s) and Denies weakness [facility] Past Medical History Medical History Anxiety Arthritis Asthma Back pain BMI 36.0-36.9,adult BMI 37.0-37.9, adult BMI 38.0-38.9,adult Bronchitis Cataracts, bilateral Chronic kidney disease, stage 3 COPD (chronic obstructive pulmonary disease) DDD (degenerative disc disease) Depression Emphysema of lung Gastrointestinal ulcer GERD (gastroesophageal reflux disease) HTN (hypertension) Hypothyroidism IBS (irritable bowel syndrome) Inguinal hernia Low vitamin B12 level Low vitamin D level Mild intermittent asthma without complication Nutrition impaired due to imbalance of nutrients Osteoporosis Screening mammogram for high-risk patient TIA (transient ischemic attack) UTI (urinary tract infection) Ventral hernia without obstruction or gangrene Vitamin D deficiency Weakness Surgical History Surgical History History of bladder surgery bladder tie-up Hx of bilateral hip replacements Hx of cataract surgery Hx of tonsillectomy Family History Family History Mother Family history of suicide Patient's mother is Father Patient's father is , Onset Age: 76 Family history of malignant neoplasm Other Family history of cardiovascular disease Family history of coronary artery disease Hypertension Social History Social History Tobacco type: cigarettes Alcohol intake: never Substance use: never Substance use type: does not use Additional living arrangements comments: NANC[place] Gender identity (if verbalized by the patient): Female Spiritual care concerns: No Exam Const: General: no acute distress and well developed Orientation/consciousness: oriented to person, oriented to place, oriented to time and patient oriented x3 HENMT: Head: normocephalic Ears: external ears normal General nose exam: Normal external nose present Eyes: General: appearance normal, both eyes and all related structures Conjunctivae: conjunctivae normal Neck: Neck: normal visual inspection a
[2021-05-15] MEDS: DICYCLOMINE HCL INJ 20 MG/2 ML VIAL IM (21:50)
--- NOTE | 2021-05-15 21:54 | PC.NURSE ---
pt states she has not had her Xanax today and wanted to know if we could give her some. Dr. Molina verbalized that was fine. VORB 0.5 mg of Xanax PO.
[2021-05-15 22:49] VITALS: BP 135/71; PULSE 88; RESP 18; O2SAT 97
--- NOTE | 2021-05-15 23:22 | PC.NURSE ---
pt refusing xanax at this time. pt states I will just take it when i get home.
--- NOTE | 2021-05-15 23:23 | PC.NURSE ---
jethro bingham took report on pt. pt leaving via friends pov. no distress noted.
[2021-05-15 23:33] VITALS: BP 163/72; PULSE 99; RESP 17; O2SAT 99
== END 2021-05-15 23:37 | disposition home or self-care (01) ==
PROVIDERS: Emergency Medicine; Emergency Provider Emergency Medicine; PCP Family Medicine
DX: R10.84 Generalized abdominal pain (principal); R19.7 Diarrhea, unspecified; I12.9 Hypertensive chronic kidney disease with stage 1 through stage 4 chronic kidney disease, or unspecified chronic kidney disease; N18.9 Chronic kidney disease, unspecified; M19.90 Unspecified osteoarthritis, unspecified site; J45.909 Unspecified asthma, uncomplicated; F32.9 Major depressive disorder, single episode, unspecified; K21.9 Gastro-esophageal reflux disease without esophagitis; E03.9 Hypothyroidism, unspecified
CPT/HCPCS: 36415; 74176; 80048; 80053; 81001; 82306; 82607; 83690; 84439; 84443; 85025; 85027; 87077; 87086; 87088; 87186; 96360; 96372; 99284; J0500; J7030

== ENCOUNTER 2021-07-10 10:04 | Outpatient (CLI) | payer MEDICARE, BC, SELFPAY ==
[2021-07-10 11:58] LABS: Anion Gap 9 mmol/L (8-16); Blood Urea Nitrogen 39 mg/dL (7-17); Calcium 9.4 mg/dL (8.4-10.2); Carbon Dioxide 28 mmol/L (22-30); Chloride 102 mmol/L (98-107); Estimated Glomerular Filt Rate 31; Glucose 85 mg/dL (65-110); Potassium 4.4 mmol/L (3.4-5.0); Sodium 139 mmol/L (137-145)
== END 2021-07-10 10:05 | disposition home or self-care (01) ==
LOC: ANHLAB 10:09
PROVIDERS: PCP Family Medicine; Visit Provider Family Medicine
DX: R39.198 Other difficulties with micturition (principal); N18.31 Chronic kidney disease, stage 3a
CPT/HCPCS: 36415; 80048; 87086

== ENCOUNTER 2021-08-14 09:28 | Outpatient (CLI) | payer MEDICARE, BC, SELFPAY ==
--- NOTE | ~2021-08-14 | NM_ITS ---
EXAMINATION: NM hepatobiliary wo pharm DATE: 08/14/2021 16:05 INDICATION: Generalized abdominal pain COMPARISON: None. TECHNIQUE: 5.2 mCi Tc-99m mebrofenin (Choletec) was administered intravenously. Scintigraphic images of the abdomen were obtained for one hour. At the 1 hour time point, the patient drank 8 oz Ensure, and imaging was continued for 60 minutes. Gallbladder ejection fraction was calculated by the technol ogist. FINDINGS: There is normal clearance of radiotracer from the blood pool. There is homogeneous tracer u ptake by the liver. Activity progresses to the bowel and gallbladder. The gallbladder ejection fract ion (GBEF) is 96%. Note that with this technique, normal GBEF >= 33%. IMPRESSION: 1. Normal hepatobiliary scan Reviewed, dictated and finalized at location B. EGE RECRUITER
== END 2021-08-14 09:29 | disposition home or self-care (01) ==
LOC: ANHIMG 09:31
PROVIDERS: PCP Family Medicine; Visit Provider Family Medicine
DX: R10.84 Generalized abdominal pain (principal); R10.13 Epigastric pain
CPT/HCPCS: 78226; A9537

== ENCOUNTER 2021-08-16 09:27 | Outpatient (CLI) | payer MEDICARE, BC, SELFPAY ==
[2021-08-16 10:09] LABS: Albumin Level 3.7 g/dL (3.5-5.1); Anion Gap 7 mmol/L (8-16); Blood Urea Nitrogen 34 mg/dL (7-17); Calcium 9.3 mg/dL (8.4-10.2); Carbon Dioxide 33 mmol/L (22-30); Chloride 96 mmol/L (98-107); Estimated Glomerular Filt Rate 31; Glucose 126 mg/dL (65-110); Phosphorus 3.5 mg/dL (2.5-4.5); Potassium 4.1 mmol/L (3.4-5.0); Sodium 136 mmol/L (137-145)
[2021-08-16 10:18] LABS: Parathyroid Intact 107.5 pg/mL (7.5-53.5)
[2021-08-16 10:33] LABS: Creatinine Urine 86.2 mg/dL; Total Protein Urine Random 8 mg/dL; Ur Ttl Prot Creatinine Ratio 0.09 mg/mg (0-0.20)
[2021-08-16 10:49] LABS: Vitamin D 25 Hydroxy 35.3 ng/mL
== END 2021-08-16 09:28 | disposition home or self-care (01) ==
LOC: ANHLAB 09:34
PROVIDERS: PCP Family Medicine; Visit Provider Internal Medicine Nephrology
DX: I12.9 Hypertensive chronic kidney disease with stage 1 through stage 4 chronic kidney disease, or unspecified chronic kidney disease (principal); N18.32 Chronic kidney disease, stage 3b; R60.0 Localized edema; R53.81 Other malaise
CPT/HCPCS: 36415; 80069; 82306; 82570; 83970; 84156

== ENCOUNTER 2021-10-19 13:35 | Outpatient (CLI) | payer MEDICARE, BC, SELFPAY ==
[2021-10-19 14:10] LABS: Hematocrit 34.2 % (37.0-47.0); Hemoglobin 11.4 g/dL (12.0-15.0); Mean Corpuscular HGB Conc 33.3 g/dl (32-36); Mean Corpuscular Hemoglobin 29.1 pg (26-34); Mean Corpuscular Volume 87.2 fl (80-100); Mean Platelet Volume 9.1 fl (7.4-10.4); Platelet Count Result 438 k/mm3 (150-375); Red Blood Count 3.92 M/mm3 (4.2-5.4); Red Cell Distribution Width 13.7 % (11.5-14.5); White Blood Count 10.7 K/mm3 (4.5-10.0)
[2021-10-19 14:18] LABS: Alanine Aminotransferase 19 U/L (4-35); Alkaline Phosphatase 109 U/L (38-126); Anion Gap 7 mmol/L (8-16); Aspartate Amino Transferase 25 U/L (14-36); Bilirubin,Total 0.3 mg/dL (0.2-1.3); Blood Urea Nitrogen 33 mg/dL (7-17); Calcium 9.3 mg/dL (8.4-10.2); Carbon Dioxide 27 mmol/L (22-30); Chloride 102 mmol/L (98-107); Estimated Glomerular Filt Rate 28; Glucose 101 mg/dL (65-110); Potassium 4.6 mmol/L (3.4-5.0); Sodium 136 mmol/L (137-145)
[2021-10-19 14:58] LABS: Vitamin D 25 Hydroxy 27.5 ng/mL
== END 2021-10-19 13:36 | disposition home or self-care (01) ==
LOC: ANHLAB 13:38
PROVIDERS: PCP Family Medicine; Visit Provider Family Medicine
DX: N18.31 Chronic kidney disease, stage 3a (principal); E55.9 Vitamin D deficiency, unspecified
CPT/HCPCS: 36415; 80048; 80076; 82306; 83735; 85027

== ENCOUNTER 2021-10-25 09:46 | Outpatient (CLI) | payer MEDICARE, BC, SELFPAY ==
[2021-10-25 10:48] LABS: Anion Gap 12 mmol/L (8-16); Blood Urea Nitrogen 40 mg/dL (7-17); Carbon Dioxide 28 mmol/L (22-30); Chloride 95 mmol/L (98-107); Potassium 3.9 mmol/L (3.4-5.0); Sodium 135 mmol/L (137-145)
[2021-10-25 10:49] LABS: Calcium 9.2 mg/dL (8.4-10.2); Estimated Glomerular Filt Rate 22; Glucose 146 mg/dL (65-110)
== END 2021-10-25 09:47 | disposition home or self-care (01) ==
PROVIDERS: PCP Family Medicine; Referring Provider Internal Medicine Nephrology; Visit Provider Family Medicine
DX: N18.31 Chronic kidney disease, stage 3a (principal)
CPT/HCPCS: 36415; 80048

== ENCOUNTER 2021-11-13 11:15 | Outpatient (CLI) | payer MEDICARE, BC, SELFPAY ==
[2021-11-13 12:12] LABS: Albumin Level 3.7 g/dL (3.5-5.1); Anion Gap 7 mmol/L (8-16); Blood Urea Nitrogen 44 mg/dL (7-17); Calcium 8.5 mg/dL (8.4-10.2); Carbon Dioxide 34 mmol/L (22-30); Chloride 97 mmol/L (98-107); Estimated Glomerular Filt Rate 31; Glucose 114 mg/dL (65-110); Phosphorus 3.5 mg/dL (2.5-4.5); Potassium 3.7 mmol/L (3.4-5.0); Sodium 138 mmol/L (137-145)
[2021-11-13 12:40] LABS: Creatinine Urine 48.3 mg/dL; Total Protein Urine Random 10 mg/dL; Ur Ttl Prot Creatinine Ratio 0.21 mg/mg (0-0.20)
== END 2021-11-13 11:16 | disposition home or self-care (01) ==
PROVIDERS: PCP Family Medicine; Visit Provider Internal Medicine Nephrology
DX: I12.9 Hypertensive chronic kidney disease with stage 1 through stage 4 chronic kidney disease, or unspecified chronic kidney disease (principal); N18.32 Chronic kidney disease, stage 3b
CPT/HCPCS: 36415; 80069; 82570; 84156

== ENCOUNTER 2022-03-14 09:50 | Outpatient (CLI) | payer MEDICARE, BC, SELFPAY ==
[2022-03-14 10:29] LABS: Albumin Level 4.6 g/dL (3.5-5.1); Anion Gap 10 mmol/L (8-16); Blood Urea Nitrogen 52 mg/dL (7-17); Calcium 9.2 mg/dL (8.4-10.2); Carbon Dioxide 32 mmol/L (22-30); Chloride 95 mmol/L (98-107); Estimated Glomerular Filt Rate 27; Glucose 113 mg/dL (65-110); Phosphorus 4.2 mg/dL (2.5-4.5); Sodium 137 mmol/L (137-145)
[2022-03-14 10:32] LABS: Creatinine Urine 22.1 mg/dL; Total Protein Urine Random 9 mg/dL; Ur Ttl Prot Creatinine Ratio 0.41 mg/mg (0-0.20)
[2022-03-14 10:39] LABS: Parathyroid Intact 239.9 pg/mL (7.5-53.5)
[2022-03-14 11:08] LABS: Vitamin D 25 Hydroxy 34.7 ng/mL
== END 2022-03-14 09:51 | disposition home or self-care (01) ==
LOC: ANHLAB 09:53
PROVIDERS: PCP Family Medicine; Visit Provider Internal Medicine Nephrology
DX: I12.9 Hypertensive chronic kidney disease with stage 1 through stage 4 chronic kidney disease, or unspecified chronic kidney disease (principal); N18.32 Chronic kidney disease, stage 3b
CPT/HCPCS: 36415; 80069; 82306; 82570; 83970; 84156

== ENCOUNTER 2022-05-07 09:06 | Outpatient (CLI) | payer MEDICARE, BC, SELFPAY ==
--- NOTE | ~2022-05-07 | CT_ITS ---
EXAMINATION: CT abdomen pelvis wo con DATE: 05/07/2022 09:38 INDICATION: Periumbilical abdominal pain. TECHNIQUE: Computed tomography (CT) of the abdomen and pelvis was performed without intravenous contr ast. Automated exposure control and iterative reconstruction technique were employed. The dose-length product was 1380.14 mGy-cm. COMPARISON: CT abdomen and pelvis 05/15/21 FINDINGS: The visualized portions of the lung bases demonstrate mild atelectasis and mild chronic int erstitial lung disease characterized by peripheral septal thickening and subpleural bands. No pleural effusion. The heart size is normal. There are coronary artery calcifications. No pericardial effusio n. The liver is normal. There is a gallstone in the gallbladder, which is normal in size. The spleen and pancreas are normal. There is a 2.5 cm mass in right adrenal gland measuring low-attenuation, con sistent with an adenoma. There is a 1.7 m mass in left adrenal gland containing fat, consistent with a myelolipoma. 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 There is diverticulosis of th e colon without evidence of diverticulitis. The appendix is normal. There are no dilated loops of bow el. There is a small sliding hiatal hernia. There are no pathologically enlarged lymph nodes. There i s no free intraperitoneal fluid. There is prominent fat in the umbilicus. There are bilateral total h ip arthroplasties. There is severe lumbar spondylosis. Thoracic spondylosis. Lumbar levoscoliosis is noted. IMPRESSION: 1. Prominent fat in the umbilicus, which may be a hernia. 2. Cholelithiasis. Reviewed, dictated and finalized at location A.
== END 2022-05-07 09:07 | disposition home or self-care (01) ==
PROVIDERS: PCP Family Medicine; Visit Provider Family Medicine
DX: R10.84 Generalized abdominal pain (principal); K80.20 Calculus of gallbladder without cholecystitis without obstruction
CPT/HCPCS: 74176

== ENCOUNTER 2022-05-21 10:16 | Outpatient (CLI) | payer MEDICARE, BC, SELFPAY ==
[2022-05-21 10:39] LABS: Basophils Absolute Auto 0.1 K/mm3 (0.0-0.1); Basophils Percent Auto 0.6 % (0.2-1.2); Eosinophils Absolute Auto 1.2 K/mm3 (0-0.3); Eosinophils Percent Auto 10.3 % (0-4.4); Hematocrit 35.1 % (37.0-47.0); Hemoglobin 11.5 g/dL (12.0-15.0); Immature Granulocyte Absolute 0.16 K/mm3 (0.00-0.031); Immature Granulocyte Percent A 1.4 % (0-0.5); Lymphocytes Absolute Auto 2.11 K/mm3 (0.9-3.2); Lymphocytes Percent Auto 18.5 % (18.3-44.2); Mean Corpuscular HGB Conc 32.8 g/dl (32-36); Mean Corpuscular Hemoglobin 28.8 pg (26-34); Mean Corpuscular Volume 87.8 fl (80-100); Mean Platelet Volume 8.9 fl (7.4-10.4); Monocytes Absolute Auto 1.2 K/mm3 (0.1-0.6); Monocytes Percent Auto 10.5 % (2.6-8.5); Neutrophils Absolute Auto 6.7 K/mm3 (1.3-6.7); Neutrophils Percent Auto 58.7 % (45.5-73.1); Platelet Count Result 352 k/mm3 (150-375); Red Cell Distribution Width 14.6 % (11.5-14.5); White Blood Count 11.4 K/mm3 (4.5-10.0)
[2022-05-21 10:51] LABS: Alanine Aminotransferase 21 U/L (6-35); Albumin Level 3.7 g/dL (3.5-5.1); Alkaline Phosphatase 88 U/L (38-126); Amylase 160 U/L (30-110); Anion Gap 11 mmol/L (8-16); Aspartate Amino Transferase 22 U/L (14-36); Bilirubin,Total 0.4 mg/dL (0.2-1.3); Blood Urea Nitrogen 32 mg/dL (7-17); Calcium 9.1 mg/dL (8.4-10.2); Carbon Dioxide 33 mmol/L (22-30); Chloride 94 mmol/L (98-107); Estimated Glomerular Filt Rate 36; Glucose 110 mg/dL (65-110); Lipase 137 U/L (23-300); Potassium 3.4 mmol/L (3.4-5.0); Sodium 138 mmol/L (137-145)
[2022-05-21 11:30] LABS: Free T4 Free Thyroxine 1.64 ng/mL (0.78-2.19); Vitamin D 25 Hydroxy 24.1 ng/mL
== END 2022-05-21 10:17 | disposition home or self-care (01) ==
LOC: ANHLAB 10:20
PROVIDERS: PCP Family Medicine; Visit Provider Family Medicine
DX: R10.84 Generalized abdominal pain (principal); E03.9 Hypothyroidism, unspecified; E55.9 Vitamin D deficiency, unspecified; R79.89 Other specified abnormal findings of blood chemistry
CPT/HCPCS: 36415; 80048; 80076; 82150; 82306; 83690; 84439; 84443; 85025

== ENCOUNTER 2022-07-02 09:15 | Outpatient (CLI) | payer MEDICARE, BC, SELFPAY ==
--- NOTE | ~2022-07-02 | US_ITS ---
EXAMINATION: US venous doppler [facility] DATE: 07/02/2022 10:09 INDICATION: Lower limb pain and swelling TECHNIQUE: Grayscale ultrasound images without and with compression and Doppler ultrasound images of the bilateral lower extremity veins were obtained. COMPARISON: None. FINDINGS: The visualized portions of right common femoral vein, profunda (deep) femoral vein, femoral vein, pop liteal vein, posterior tibial veins, peroneal veins, gastrocnemius vein and greater saphenous vein ou tflow are patent. The visualized portions of left common femoral vein, profunda femoral vein, femoral vein, popliteal v ein, posterior tibial veins, peroneal veins, gastrocnemius vein and greater saphenous vein outflow ar e patent. IMPRESSION: 1. No deep venous thrombosis in either lower limb. Reviewed, dictated and finalized at location A.
== END 2022-07-02 09:16 | disposition home or self-care (01) ==
LOC: ANHIMG 09:19
PROVIDERS: PCP Family Medicine; Visit Provider Internal Medicine Cardiovascular Disease
DX: R60.0 Localized edema (principal); M79.604 Pain in right leg; M79.605 Pain in left leg
CPT/HCPCS: 93970

== ENCOUNTER 2022-07-04 10:20 | Outpatient (CLI) | payer MEDICARE, BC, SELFPAY ==
[2022-07-04 10:39] LABS: Hematocrit 37.4 % (37.0-47.0); Hemoglobin 12.2 g/dL (12.0-15.0); Mean Corpuscular HGB Conc 32.6 g/dl (32-36); Mean Corpuscular Hemoglobin 28.9 pg (26-34); Mean Corpuscular Volume 88.6 fl (80-100); Mean Platelet Volume 8.7 fl (7.4-10.4); Platelet Count Result 447 k/mm3 (150-375); Red Blood Count 4.22 M/mm3 (4.2-5.4); Red Cell Distribution Width 13.8 % (11.5-14.5); White Blood Count 12.6 K/mm3 (4.5-10.0)
== END 2022-07-04 10:21 | disposition home or self-care (01) ==
PROVIDERS: PCP Family Medicine; Visit Provider Family Medicine
DX: E53.8 Deficiency of other specified B group vitamins (principal)
CPT/HCPCS: 36415; 82607; 85027

== ENCOUNTER 2022-08-06 10:11 | Outpatient (CLI) | payer MEDICARE, BC, SELFPAY ==
[2022-08-06 11:19] LABS: Anion Gap 10 mmol/L (8-16); Blood Urea Nitrogen 47 mg/dL (7-17); Calcium 8.7 mg/dL (8.4-10.2); Carbon Dioxide 32 mmol/L (22-30); Chloride 94 mmol/L (98-107); Estimated Glomerular Filt Rate 33; Glucose 86 mg/dL (65-110); Phosphorus 3.6 mg/dL (2.5-4.5); Potassium 3.2 mmol/L (3.4-5.0); Sodium 136 mmol/L (137-145)
== END 2022-08-06 10:12 | disposition home or self-care (01) ==
PROVIDERS: PCP Family Medicine; Visit Provider Internal Medicine Nephrology
DX: N18.32 Chronic kidney disease, stage 3b (principal)
CPT/HCPCS: 36415; 80069

== ENCOUNTER 2022-08-27 07:18 | Inpatient (IN) | payer MEDICARE, BC, SELFPAY ==
[2022-08-27] VITALS (60 sets, daily range): BP systolic 94–146; BP diastolic 33–88; PULSE 55–94; RESP 13–23; TEMP 35.9–36.4; O2SAT 92–99; BMI 40.0
--- NOTE | ~2022-08-27 | XR_ITS ---
EXAMINATION: XR chest 1V portable Exam Date/Time: 09/02/2022 10:10 WAREHOUSE HANDLER HISTORY: cough Comparison: 08/30/2022. RESULT: Lines, tubes, and devices: None. Lungs and pleura: Left basilar scar/atelectasis. Cardiomediastinal silhouette: Stable. Other: No acute osseous or upper abdominal finding. IMPRESSION: No acute cardiopulmonary process. Reviewed, dictated and finalized at location K. HOUSE HANDLER
--- NOTE | ~2022-08-27 | XR_ITS ---
XR chest 2V DATE: 08/30/2022 21:22 INDICATION: Right rib pain TECHNIQUE: AP and lateral views COMPARISON: 08/29/2022 portable AP chest FINDINGS: There is left basilar infiltrate and/atelectasis, blurring much of the left diaphragmatic s ilhouette. Minimal right basilar atelectasis. The remaining lung troy appear clear. No pleural effusion or pulmonary vascular congestion or pneumothorax. Heart size is normal. Thoracic and abdominal aortic calcification. No hilar or mediastinal enlargement is noted. Bilateral glenohumeral osteoarthritis. Diffuse osteopenia. Mild thoracic dextroscoliosis and degenera tive change. IMPRESSION: Bibasilar infiltrate or atelectasis, greater on the left Reviewed, dictated and finalized at location A. TY JUVENILE OFFICER
--- NOTE | ~2022-08-27 | XR_ITS ---
Left Knee Technique: AP, lateral, and oblique views were obtained. Clinical History: Pain and swelling Findings: No fracture or dislocation is seen. Osseous alignment is anatomic. Moderate tricompartmenta l osteoarthritic change noted, with osteophyte formation. Vascular calcifications are present. No traci nt effusion is seen. Impression: Moderate tricompartmental osteoarthritis. No fracture or dislocation. Reviewed, dictated and finalized at location . MATCHER Impression: Moderate tricompartmental osteoarthritis. No fracture or dislocation.
--- NOTE | ~2022-08-27 | XR_ITS ---
Right Knee Technique: AP, lateral, and oblique views were obtained. Clinical History: Pain and swelling Findings: No fracture or dislocation is seen. Osseous alignment is anatomic. Moderate tricompartmenta l degenerative changes present, tricompartmental osteophyte formation. Soft tissues are unremarkable. Minimal joint effusion is seen. Impression: No acute fracture or dislocation. Moderate tricompartmental osteophytosis. Minimal joint effusion. Reviewed, dictated and finalized at location . SH MENDER Impression: No acute fracture or dislocation. Moderate tricompartmental osteophytosis. Minimal joint effusion.
--- NOTE | ~2022-08-27 | CT_ITS ---
EXAMINATION: CT brain wo con DATE: 08/27/2022 08:19 INDICATION: Weakness. TECHNIQUE: Computed tomography (CT) of the head was performed without intravenous contrast. The mA wa s adjusted according to patient size. Iterative reconstruction technique was employed. The dose-lengt h product was 681.00 mGy-cm. COMPARISON: Head CT 10/08/2018 FINDINGS: There are scattered areas of low attenuation in the cerebral white matter, which is within normal limits for the patient's age. There is no intracranial hemorrhage, acute infarction, or abnorm al intracranial mass lesion. The ventricles are normal in size. There are likely changes of ocular le ns replacement surgeries. There is mild mucosal thickening in the paranasal sinuses. The mastoid air cells are normal. IMPRESSION: 1. Normal aging brain. Reviewed, dictated and finalized at location A. RTISING ACCOUNT EXECUTIVE IMPRESSION: 1. Normal aging brain.
--- NOTE | ~2022-08-27 | XR_ITS ---
Portable chest x-ray Comparison: 08/27/2022 Clinical History: Shortness of breath Findings: Lungs are clear, without focal consolidation or pleural effusion. Cardiomediastinal silho uette is stable. Bones and soft tissues are unremarkable. Impression: Clear lungs. Reviewed, dictated and finalized at location . CAL APPOINTMENT CLERK Impression: Clear lungs.
--- NOTE | ~2022-08-27 | XR_ITS ---
Clinical Indication: Weakness, asthma AP and lateral views of the chest: Comparison: 11/08/2019 Findings: The lungs are clear, without evidence of focal consolidation or pleural effusion. Cardiome diastinal silhouette is stable. Bones and soft tissues are unremarkable. Impression: Clear lungs. Reviewed, dictated and finalized at [facility]. YSIS PATIENT CARE TECHNICIAN Impression: Clear lungs.
--- NOTE | 2022-08-27 07:48 | ECG_ITS ---
Measurements Intervals [place] Rate: 77 P: 47 AK: 187 QRS: -3 QRSD: 88 T: 46 QT: 435 QTc: 493 Interpretive Statements SINUS RHYTHM LOW VOLTAGE ABNORMAL ECG NO PREVIOUS ECG AVAILABLE FOR COMPARISON Electronically Signed On 08-27-2022 15:33:05 WOOL HAT SANDING MACHINE OPERATOR by Luis Gasca M.D.
--- NOTE | 2022-08-27 07:55 | ED.WEAKNESS ---
HPI - Weakness General Chief complaint: Weakness Stated complaint: can't walk Time Seen by Provider: 08/27/22 07:55 Source: patient and EMS Mode of arrival: EMS Limitations: no limitations History of Present Illness HPI Narrative: Patient is an 86-year-old female with a history of stage III chronic kidney disease, hypertension, hyperlipidemia, hypothyroidism, presenting to the emergency department for evaluation of generalized weakness and bilateral knee pain. Patient is mostly wheelchair-bound but does complete transfers independently. She states that she has been feeling generally weak, and fell forward out of her wheelchair while trying to transfer herself from the wheelchair to a couch this morning. No head trauma or loss of conscious. Patient states that she landed on both knees and has significant knee pain bilaterally. She denies hip pain. She reports generalized weakness without numbness. She is able to range both lower extremities. She denies back pain or neck pain. Patient denies vision changes, nausea or vomiting. Knee pain is dull, aching in nature and exacerbated with movement. Patient denies laceration, wound or bleeding. Patient's tanker serviceman is Dr. Gutierrez. She has been compliant with her medications. Related Data Home Medications Medication Instructions Recorded Confirmed atorvastatin 10 mg tablet 10 mg PO DAILY 03/28/22 06/20/22 spironolactone 25 mg tablet 25 mg PO DAILY 03/28/22 06/20/22 bumetanide 2 mg tablet 2 mg PO BID 06/20/22 06/20/22 metolazone 5 mg tablet 5 mg PO .COMPLEX 06/20/22 06/20/22 Allergies Allergy/AdvReac Type Severity Reaction Status Date / Time cephalexin Allergy Severe RASH Verified 08/27/22 07:47 codeine Allergy Unknown Unknown Verified 08/27/22 07:47 niacin Allergy Unknown Unknown Verified 08/27/22 07:47 Penicillins Allergy Unknown Unknown Verified 08/27/22 07:47 ciprofloxacin [From Cipro] AdvReac Mild GI upset Verified 08/27/22 07:47 Review of Systems Review of Systems: CONSTITUTIONAL: Denies fever, chills, or sweats. EYES: Denies visual changes, redness, or discharge. ENT: Denies rhinorrhea, congestion, sore throat, or otalgia. CARDIOVASCULAR: Denies chest pain, palpitations, or edema. RESPIRATORY: Denies cough or dyspnea. GASTROINTESTINAL: Denies abdominal pain, nausea, vomiting, or diarrhea. GENITOURINARY: Denies dysuria or hematuria. SKIN: Denies rash or itching. MUSCULOSKELETAL: Denies back pain, reports bilateral knee pain NEUROLOGIC: Denies headache, numbness, reports generalized weakness PMFSH Past Medical History Medical History Anxiety Arthritis Asthma Ataxia Back pain BMI 36.0-36.9,adult BMI 37.0-37.9, adult BMI 37.0-37.9, adult BMI 37.0-37.9, adult BMI 38.0-38.9,adult Bronchitis Cataracts, bilateral Chronic kidney disease, stage 3 Chronic kidney disease, stage 4 (severe) COPD (chronic obstructive pulmonary disease) COVID-19 DDD (degenerative disc disease) Depression Diffuse abdominal pain Diffuse nodular cirrhosis of liver Emphysema of lung Epigastric pain Fatigue Fluid retention Gastrointestinal ulcer GERD (gastroesophageal reflux disease) HTN (hypertension) Hypothyroidism IBS (irritable bowel syndrome) Inguinal hernia Insomnia Iron deficiency anemia Left hip pain Leg weakness, bilateral Low vitamin B12 level Low vitamin D level Lumbar spondylosis Mass of right thigh Melancholy Memory loss Mild intermittent asthma without complication Nutrition impaired due to imbalance of nutrients Osteoporosis Screening mammogram for high-risk patient TIA (transient ischemic attack) UTI (urinary tract infection) Ventral hernia without obstruction or gangrene Vitamin D deficiency Weakness Surgical History Surgical History History of bladder surgery bladder tie-up Hx of bilateral hip replacements Hx of cataract surgery Hx of tonsillectom
[2022-08-27 08:12] LABS: Basophils Absolute Auto 0.1 K/mm3 (0.0-0.1); Basophils Percent Auto 0.3 % (0.2-1.2); Eosinophils Absolute Auto 0.4 K/mm3 (0-0.3); Eosinophils Percent Auto 2.3 % (0-4.4); Hemoglobin 12.3 g/dL (12.0-15.0); Immature Granulocyte Absolute 0.22 K/mm3 (0.00-0.031); Immature Granulocyte Percent A 1.3 % (0-0.5); Lymphocytes Absolute Auto 1.45 K/mm3 (0.9-3.2); Lymphocytes Percent Auto 8.3 % (18.3-44.2); Mean Corpuscular HGB Conc 33.2 g/dl (32-36); Mean Corpuscular Hemoglobin 29.1 pg (26-34); Mean Corpuscular Volume 87.5 fl (80-100); Mean Platelet Volume 9.1 fl (7.4-10.4); Monocytes Absolute Auto 1.4 K/mm3 (0.1-0.6); Monocytes Percent Auto 8.1 % (2.6-8.5); Neutrophils Percent Auto 79.7 % (45.5-73.1); Platelet Count Result 382 k/mm3 (150-375); Red Blood Count 4.23 M/mm3 (4.2-5.4); Red Cell Distribution Width 14.5 % (11.5-14.5); White Blood Count 17.5 K/mm3 (4.5-10.0)
[2022-08-27 08:16] LABS: Add Urine Microscopic? NO; Appearance Urine Clear (Clear); Bilirubin Urine Negative (Negative); Blood Urine Negative (Negative); Color Urine Light Yellow (Yellow); Glucose Urine UA Negative (Negative); Ketones Urine Negative (Negative); Leukocyte Esterase Ur Negative LEU/UL (Negative); Nitrate Urine Negative (Negative); Protein Urine Negative (Negative); Urobilinogen Urine 0.2 mg/dL (<2.0)
[2022-08-27 08:28] LABS: Alanine Aminotransferase 20 U/L (6-35); Albumin Level 4.1 g/dL (3.5-5.1); Alkaline Phosphatase 104 U/L (38-126); Anion Gap 10 mmol/L (8-16); Aspartate Amino Transferase 25 U/L (14-36); Bilirubin,Total 0.6 mg/dL (0.2-1.3); Blood Urea Nitrogen 53 mg/dL (7-17); Calcium 8.7 mg/dL (8.4-10.2); Carbon Dioxide 31 mmol/L (22-30); Chloride 93 mmol/L (98-107); Estimated CRCL calculation 32 ml/min; Estimated Glomerular Filt Rate 36; Glucose 117 mg/dL (65-110); Potassium 2.7 mmol/L (3.4-5.0); Sodium 134 mmol/L (137-145)
[2022-08-27 08:36] LABS: Troponin I < 0.012 ng/mL (0.000-0.034)
[2022-08-27 08:45] LABS: Influenza A QL RT-PCR Negative (Negative); Influenza B QL RT-PCR Negative (Negative); SARS-CoV-2 RNA PCR Negative
[2022-08-27 09:57] LABS: Magnesium 1.8 mg/dL (1.6-2.3); Phosphorus 4.8 mg/dL (2.5-4.5)
[2022-08-27] MEDS: oxyCODONE/ACETAMINOPHEN (*CRX) 5-325 MG TABLET 1 TABLET PO (10:12)
[2022-08-27] MEDS: POTASSIUM CHLORIDE 20 MEQ PACKET (FOR LIQUID) 40 MEQ PO (11:26)
--- NOTE | 2022-08-27 12:16 | PC.NURSE ---
Attempted to get home meds. Called [facility] and they state they do not have list of home meds because pt does her own. Attempted to call pmd office but they were closed. Pt did not bring list of meds.
--- NOTE | 2022-08-27 12:46 | PM.IMHP ---
H&P: HPI History of Present Illness Date/Time: 08/27/22 12:46 Chief Complaint: Weakness and having difficulty walking. Narrative: This is an 86-year-old female patient who lives in bilingual medical assistant she has a history of chronic kidney disease, hypertension hypothyroidism and hyperlipidemia. She presented to the emergency room with generalized weakness and bilateral knee pain. Patient is mostly wheelchair-bound but is typically able to transfer herself independently. The patient has been feeling weak and fell out of her wheelchair while trying to transfer herself from the wheelchair to the couch this morning. She denies any hip pain. No fever chills. She does see Dr. Gutierrez outpatient for chronic kidney disease. Her white count is 17.5. Her potassium was found to be 2.7. Last month it was noted to be 3.2. Creatinine is 1.4. Troponins are nonreactive x2. Her urine is clear and she is negative for influenza A/B and COVID. Knee x-ray was read as no acute fracture dislocation moderate tricompartmental osteophytosis minimal joint effusion. Left knee was read as moderate tract car park mental osteoarthritis no fracture dislocation. Chest x-ray was read as clear lungs. Head CT was read as normal aging brain. The patient was given Percocet and supplemented with potassium. The patient is being admitted to observation status on the date of service of 08/27/2022. Review of Systems Review of Systems: See HPI All systems reviewed & are unremarkable except as noted in HPI and below Constitutional: Constitutional: Reports as per HPI and Reports no additional constitutional complaints Eyes: Eyes: Reports as per HPI and Reports no additional eye complaints ENT: Reports system reviewed and no additional complaints, except as documented and Reports Normal hearing present Cardiovascular: Cardiovascular: Reports no additional cardiovascular complaints Respiratory: Respiratory: Reports no additional respiratory complaints and Reports no additional respiratory complaints Gastrointestinal: Gastrointestinal: Reports as per HPI and Reports no additional gastrointestinal complaints Musculoskeletal: Musculoskeletal: Reports no additional musculoskeletal complaints Integumentary/Breasts: Skin/Breast: Reports system reviewed and no additional complaints, except as docu and Reports as per HPI Neurologic: Reports system reviewed and no additional complaints, except as documented, Reports as per HPI and Reports Normal hearing present Psychiatric: Psychiatric: Reports no additional psychiatric complaints and Reports as per HPI Endocrine: Endocrine: Reports no additional endocrine complaints Hematologic/Lymphatic: Hematologic/Lymphatic: Reports no additional hematologic/lymphatic complaints Allergic/Immunologic: Allergic/Immunologic: Reports no additional allergic/immunologic complaints [facility] Past Medical History Medical History (Updated 08/27/22 @ 14:23 by Betsey Olguin NP) Abnormal mammogram Anxiety Arthritis Asthma Ataxia Back pain BMI 36.0-36.9,adult BMI 37.0-37.9, adult BMI 37.0-37.9, adult BMI 37.0-37.9, adult BMI 38.0-38.9,adult Bronchitis Cataracts, bilateral Chronic kidney disease, stage 3 Chronic kidney disease, stage 4 (severe) COPD (chronic obstructive pulmonary disease) COVID-19 DDD (degenerative disc disease) Depression Diffuse abdominal pain Diffuse nodular cirrhosis of liver Emphysema of lung Epigastric pain Fatigue Fluid retention Gastrointestinal ulcer GERD (gastroesophageal reflux disease) History of DVT (deep vein thrombosis) HTN (hypertension) Hypothyroidism IBS (irritable bowel syndrome) Inguinal hernia Insomnia Iron deficiency anemia Left hip pain Leg weakness, bilateral Low vitamin B12 level Low vitamin D level Lumbar spondylosis Mass of right thigh Melancholy Memory loss Mild intermittent asthma without complication Nutrition impaired due to imbalance of nutrients Obstructive sleep apnea Osteoporosis
[2022-08-27 12:50] LABS: Troponin I < 0.012 ng/mL (0.000-0.034)
--- NOTE | 2022-08-27 13:23 | PC.NURSE ---
Patient in the ED due to lack of beds to admit to on the Medical Surgical department. Admission questions completed and patient currently awake, alert and cooperative.
[2022-08-27 14:44] LABS: Anion Gap 9 mmol/L (8-16); Blood Urea Nitrogen 50 mg/dL (7-17); Calcium 8.7 mg/dL (8.4-10.2); Carbon Dioxide 33 mmol/L (22-30); Chloride 92 mmol/L (98-107); Estimated CRCL calculation 33 ml/min; Estimated Glomerular Filt Rate 36; Glucose 126 mg/dL (65-110); Potassium 3.4 mmol/L (3.4-5.0); Sodium 134 mmol/L (137-145)
[2022-08-27] MEDS: HYDROcodone/acetaminophen (*CRX) 5-325 MG TABLET 1 TAB PO ×2 (14:44→18:27)
[2022-08-27] MEDS: HYDROcodone/acetaminophen (*CRX) 7.5-325 MG TABLET 1 TAB PO (23:09)
[2022-08-27] MEDS: ALPRAZolam (*CRX) 0.5 MG TABLET PO (23:10)
[2022-08-28] VITALS (10 sets, daily range): BP systolic 124–149; BP diastolic 52–60; PULSE 79–87; RESP 14–22; TEMP 36.3–37; O2SAT 91–97
[2022-08-28] MEDS: LEVOTHYROXINE SODIUM 75 MCG TABLET PO (06:24)
[2022-08-28 07:12] LABS: Potassium Urine Random 29.1 meq/L; Sodium Urine Random 80 meq/L
[2022-08-28 08:01] LABS: Basophils Absolute Auto 0.1 K/mm3 (0.0-0.1); Basophils Percent Auto 0.3 % (0.2-1.2); Eosinophils Absolute Auto 0.1 K/mm3 (0-0.3); Eosinophils Percent Auto 0.6 % (0-4.4); Hematocrit 33.8 % (37.0-47.0); Hemoglobin 11.2 g/dL (12.0-15.0); Immature Granulocyte Absolute 0.19 K/mm3 (0.00-0.031); Immature Granulocyte Percent A 1.3 % (0-0.5); Lymphocytes Absolute Auto 1.18 K/mm3 (0.9-3.2); Lymphocytes Percent Auto 8.2 % (18.3-44.2); Mean Corpuscular HGB Conc 33.1 g/dl (32-36); Mean Corpuscular Hemoglobin 28.3 pg (26-34); Mean Corpuscular Volume 85.4 fl (80-100); Mean Platelet Volume 9.5 fl (7.4-10.4); Monocytes Absolute Auto 1.3 K/mm3 (0.1-0.6); Monocytes Percent Auto 8.8 % (2.6-8.5); Neutrophils Absolute Auto 11.6 K/mm3 (1.3-6.7); Neutrophils Percent Auto 80.8 % (45.5-73.1); Platelet Count Result 388 k/mm3 (150-375); Red Blood Count 3.96 M/mm3 (4.2-5.4); Red Cell Distribution Width 14.3 % (11.5-14.5); White Blood Count 14.4 K/mm3 (4.5-10.0)
[2022-08-28 08:15] LABS: Alanine Aminotransferase 19 U/L (6-35); Alkaline Phosphatase 108 U/L (38-126); Aspartate Amino Transferase 25 U/L (14-36); Bilirubin,Total 0.9 mg/dL (0.2-1.3); Blood Urea Nitrogen 51 mg/dL (7-17); Calcium 8.8 mg/dL (8.4-10.2); Carbon Dioxide 37 mmol/L (22-30); Estimated CRCL calculation 33 ml/min; Estimated Glomerular Filt Rate 36; Glucose 133 mg/dL (65-110); Magnesium 1.7 mg/dL (1.6-2.3)
[2022-08-28 08:24] LABS: Lactic Acid Reflex 1.3 mmol/L (0.7-2.0)
[2022-08-28 08:32] LABS: Anion Gap 8 mmol/L (8-16); Chloride 90 mmol/L (98-107); Potassium 2.8 mmol/L (3.4-5.0); Sodium 135 mmol/L (137-145)
[2022-08-28] MEDS: IRBESARTAN 150 MG TABLET PO (08:44)
[2022-08-28] MEDS: MONTELUKAST SODIUM 10 MG TABLET PO (08:44)
[2022-08-28] MEDS: amLODIPine BESYLATE 5 MG TABLET PO (08:44)
[2022-08-28] MEDS: CLOPIDOGREL BISULFATE 75 MG TABLET PO (08:44)
[2022-08-28] MEDS: ALPRAZolam (*CRX) 0.5 MG TABLET PO ×3 (08:44→20:29)
[2022-08-28] MEDS: HYDROcodone/acetaminophen (*CRX) 7.5-325 MG TABLET 1 TAB PO ×3 (08:45→20:27)
--- NOTE | 2022-08-28 09:00 | PM.IMPN ---
Progress Note: A&P Assessment and Plan (1) Acute hypokalemia: Code(s): E87.6 - Hypokalemia Status: Acute Assessment and Plan: Patient originally came to the ER due to falling on her knees and was found to have hypokalemia -potassium replaced as necessary. -EKG was read as sinus rhythm no previous EKG available for comparison. -patient's potassium this morning was 2.8, patient given 40 meq K+ -recheck K+ at 1200 was 3.2. -continue with at home potassium supplement. -plan for discharge once patient's potassium has level out. (2) Anxiety: Code(s): F41.9 - Anxiety disorder, unspecified Status: Acute Assessment and Plan: -continue with Syed (3) Chronic kidney disease, stage 3: Qualifiers: Chronic kidney disease stage 3 subtype: stage 3a (GFR 45-59) Qualified Code(s): N18.31 - Chronic kidney disease, stage 3a Code(s): N18.3 - Chronic kidney disease, stage 3 (moderate) Status: Acute Assessment and Plan: Avoid any nephrotoxic medication BUN is 53 and creatinine is 1.4. The patient sees Dr. Gutierrez outpatient [facility]. Her baseline is anywhere from 1.4 to 2.10. (4) COPD (chronic obstructive pulmonary disease): Qualifiers: COPD type: unspecified COPD Qualified Code(s): J44.9 - Chronic obstructive pulmonary disease, unspecified Code(s): J44.9 - Chronic obstructive pulmonary disease, unspecified Status: Acute Assessment and Plan: -continue with inhalers from home -continue singular (5) HTN (hypertension): Qualifiers: Hypertension type: primary hypertension Qualified Code(s): I10 - Essential (primary) hypertension Code(s): I10 - Essential (primary) hypertension Status: Acute Assessment and Plan: -continue with irbesartan -hold metolazone at this time due to low potassium -continue with spironolactone -continue with amlodipine (6) Hypothyroidism: Qualifiers: Hypothyroidism type: acquired Qualified Code(s): E03.9 - Hypothyroidism, unspecified Code(s): E03.9 - Hypothyroidism, unspecified Status: Acute Assessment and Plan: -check thyroid level continue with levothyroxine (7) Leg weakness, bilateral: Code(s): R29.898 - Other symptoms and signs involving the musculoskeletal system Status: Acute Assessment and Plan: -PT and OT evaluation greatly be appreciated. Chest x-ray was negative. No other signs and symptoms of infection at this time. -check magnesium. -replace potassium as necessary. (8) Obstructive sleep apnea: Code(s): G47.33 - Obstructive sleep apnea (adult) (pediatric) Status: Acute Assessment and Plan: -continue CPAP home settings (9) Depression: Code(s): F32.9 - Major depressive disorder, single episode, unspecified Status: Acute Assessment and Plan: She has a history of depression. I am not sure if she still on any medication. (10) Hypomagnesemia: Code(s): E83.42 - Hypomagnesemia Status: Acute Assessment and Plan: magnesium 1.7 and replaced continue to monitor Time Spent With Patient Time with patient: Greater than 35 minutes Subjective Date/time seen: 08/28/22 09:00 Interval history: 86-year-old female with history of hypertension, hypothyroidism, COPD and CKD. Patient is resting in bed while being interviewed. Patient states that she has not had a bowel movement and is requesting a laxative. Patient also does not want to be discharged due to her insurance company denying her therapy upon discharge. Patient is having pain from the knees to the ankles although patient does not have evidence of a fracture on imaging. Patient denies chest pain, shortness a breath, nausea, vomiting, fever, cough, swelling in the lower extremities and dizziness. Review of Systems Review of Systems: All systems reviewed & are unremarkable except as noted in HPI and below Exam Narrat
[2022-08-28] MEDS: MAGNESIUM SULF 2 GM/WATER 50ML 2 GM/50 ML BAG IVPB (10:01)
[2022-08-28] MEDS: POTASSIUM CHLORIDE 20 MEQ PACKET (FOR LIQUID) 40 MEQ PO (10:02)
[2022-08-28 12:36] LABS: Magnesium 2.3 mg/dL (1.6-2.3); Potassium 3.2 mmol/L (3.4-5.0)
--- NOTE | 2022-08-28 16:53 | PM.CNNEP ---
Assessment and Plan Assessment and plan (1) Acute hypokalemia: Code(s): E87.6 - Hypokalemia Status: Acute Assessment and Plan: the potassium was very low in the emergency room. Her urine potassium was fairly low. Most likely the low potassium is from diuretics. If it was from diarrhea and if not on diuretics then the urine potassium would of been less than 20. However because of the diuretics her urine potassium is above 20. I do not think she has enough GI symptoms to explain loss of potassium. However any diarrhea would contribute to this. The patient is on Bumex plus metolazone. It is sometimes difficult to keep up with the potassium loss with this combination. At this point her swelling is not very impressive. I suggest we hold off on diuretics for now mlilie correct the potassium, and then restart lower dose oral diuretics. We discussed limiting her sodium intake so that she does not swell as much and she does not need as much diuretics., (2) Generalized edema: Code(s): R60.1 - Generalized edema Status: Acute Assessment and Plan: The patient has swelling. she has multiple possible causes of this. She is on amlodipine. Will discontinue this. She has reversible airways disease and so could have pulmonary hypertension. this is being treated supportively. She has cirrhosis. She has diastolic dysfunction. Will repeat an echo to see where we are with that. It would be nice to decrease swelling by treating the underlying cause rather than more diuretics. Discussed with the patient at length. (3) Stage 3b chronic kidney disease (CKD): Code(s): N18.32 - Chronic kidney disease, stage 3b Status: Acute Assessment and Plan: The patient has chronic kidney disease. Her baseline creatinine is 1.4. She is at her baseline currently. She sees Dr. Gutierrez in the clinic. She is on supportive care. (4) Hyponatremia: Code(s): E87.1 - Hypo-osmolality and hyponatremia Status: Acute Assessment and Plan: The sodium is low. This is probably due to diuretics. (5) Metabolic alkalosis: Code(s): E87.3 - Alkalosis Status: Acute Assessment and Plan: The bicarbonate is high. This is also probably due to diuretics. History of Present Illness Reason for Consult Consult date: 08/28/22 Chief Complaint Chief complaint: Hypokalemia/Generalized Weakness History of Present Illness Narrative: Lucille is a very pleasant 86-year-old lady who has multiple medical problems including chronic kidney disease stage IIIB, followed by Dr. Gutierrez in the office, lower extremity edema, reversible airways disease, hypertension, hyperlipidemia, GERD, hypothyroidism, pancreatic insufficiency, anxiety, back pain, nodular cirrhosis of the liver, anemia, obstructive sleep apnea, TIA, UTIs, vitamin-D deficiency. She says that she has been gradually weaker over the last couple of days. She was having difficulty walking. She said she has fallen a few times in the last few days. The weakness gradually was worse and so came to the emergency room. She was checked out and her potassium was 2.7. Troponins were negative. Chest x-ray was clear and CT of the head was normal aging brain. She had x-rays of very is body parts that she had fallen on and these were all negative for fracture. Because she is so weak and her potassium was so low she was admitted to the hospital. She was given some IV potassium and today her potassium is better. She says that she is on Bumex because of her swelling. She is normally on 2 mg twice a day. A little while ago her primary care physician increased it to4mg twice a day. She is also taking metolazone 3 times a week. She is noted to be on spironolactone and Dr. Gutierrez HIS CHART but she says that she does not remember being on that. It is also not on her prior to admission med list here. she is on s
[2022-08-28] MEDS: POTASSIUM CHLORIDE 20 MEQ PACKET (FOR LIQUID) PO (17:20)
[2022-08-28] MEDS: DOCUSATE SODIUM 100 MG CAPSULE PO (17:23)
--- NOTE | 2022-08-28 22:27 | PC.NURSE ---
called to clarify pt xanax order 0.5mg po bid q12hrs, pt continues to stated takes 0.5mg po q6h prn ordered, but pt takes 1mg bid prn for total of 4 tables daily, per Betsey continue scheduled xanax orders, able to given one time xanax 0.5mg po once if bp stable bp take 149/60 hr 81 ok'd to give extra dose for anxiety this shift.
[2022-08-29] VITALS (13 sets, daily range): BP systolic 125–136; BP diastolic 40–69; PULSE 65–90; RESP 14–22; TEMP 36.3–36.8; O2SAT 92–100
[2022-08-29] MEDS: LEVOTHYROXINE SODIUM 75 MCG TABLET PO (05:16)
[2022-08-29] MEDS: HYDROcodone/acetaminophen (*CRX) 7.5-325 MG TABLET 1 TAB PO ×3 (05:16→19:30)
[2022-08-29 06:34] LABS: Hematocrit 33.1 % (37.0-47.0); Mean Corpuscular HGB Conc 33.2 g/dl (32-36); Mean Corpuscular Hemoglobin 28.3 pg (26-34); Mean Corpuscular Volume 85.1 fl (80-100); Mean Platelet Volume 9.2 fl (7.4-10.4); Platelet Count Result 367 k/mm3 (150-375); Red Blood Count 3.89 M/mm3 (4.2-5.4); Red Cell Distribution Width 14.3 % (11.5-14.5); White Blood Count 15.3 K/mm3 (4.5-10.0)
[2022-08-29 06:42] LABS: Albumin Level 3.7 g/dL (3.5-5.1); Anion Gap 10 mmol/L (8-16); Blood Urea Nitrogen 51 mg/dL (7-17); Calcium 8.3 mg/dL (8.4-10.2); Carbon Dioxide 31 mmol/L (22-30); Chloride 91 mmol/L (98-107); Estimated CRCL calculation 29 ml/min; Estimated Glomerular Filt Rate 31; Glucose 136 mg/dL (65-110); Phosphorus 3.8 mg/dL (2.5-4.5); Sodium 132 mmol/L (137-145)
[2022-08-29] MEDS: CLOPIDOGREL BISULFATE 75 MG TABLET PO (08:21)
[2022-08-29] MEDS: ALPRAZolam (*CRX) 0.5 MG TABLET PO ×3 (08:21→20:14)
[2022-08-29] MEDS: MONTELUKAST SODIUM 10 MG TABLET PO (08:21)
[2022-08-29] MEDS: POTASSIUM CHLORIDE 10 MEQ TABLET.ER 20 MEQ PO (08:21)
[2022-08-29] MEDS: IRBESARTAN 150 MG TABLET PO (08:21)
--- NOTE | 2022-08-29 12:44 | PM.IMPN ---
Progress Note: A&P Assessment and Plan (1) Acute hypokalemia: Code(s): E87.6 - Hypokalemia Status: Acute Assessment and Plan: Patient originally came to the ER due to falling on her knees and was found to have hypokalemia -potassium replaced as necessary. -EKG was read as sinus rhythm no previous EKG available for comparison. -potassium this morning 3, patient started back on her home potassium supplement of 20 mg twice a day -since starting home potassium potassium has increased slowly. -continue with at home potassium supplement. -plan for discharge once patient's potassium has level out. (2) Anxiety: Code(s): F41.9 - Anxiety disorder, unspecified Status: Acute Assessment and Plan: -continue with Syed (3) Chronic kidney disease, stage 3: Qualifiers: Chronic kidney disease stage 3 subtype: stage 3a (GFR 45-59) Qualified Code(s): N18.31 - Chronic kidney disease, stage 3a Code(s): N18.3 - Chronic kidney disease, stage 3 (moderate) Status: Acute Assessment and Plan: Avoid any nephrotoxic medication BUN is 53 and creatinine is 1.4. The patient sees Dr. Gutierrez outpatient [facility]. Her baseline is anywhere from 1.4 to 2.10. (4) COPD (chronic obstructive pulmonary disease): Qualifiers: COPD type: unspecified COPD Qualified Code(s): J44.9 - Chronic obstructive pulmonary disease, unspecified Code(s): J44.9 - Chronic obstructive pulmonary disease, unspecified Status: Acute Assessment and Plan: -continue home meds (5) HTN (hypertension): Qualifiers: Hypertension type: primary hypertension Qualified Code(s): I10 - Essential (primary) hypertension Code(s): I10 - Essential (primary) hypertension Status: Acute Assessment and Plan: -continue with irbesartan -hold metolazone at this time due to low potassium -continue with spironolactone -continue with amlodipine (6) Hypothyroidism: Qualifiers: Hypothyroidism type: acquired Qualified Code(s): E03.9 - Hypothyroidism, unspecified Code(s): E03.9 - Hypothyroidism, unspecified Status: Acute Assessment and Plan: -check thyroid level continue with levothyroxine (7) Leg weakness, bilateral: Code(s): R29.898 - Other symptoms and signs involving the musculoskeletal system Status: Acute Assessment and Plan: -PT and OT evaluation greatly be appreciated. -Chest x-ray was negative. No other signs and symptoms of infection at this time. -check magnesium. -replace potassium as necessary. (8) Obstructive sleep apnea: Code(s): G47.33 - Obstructive sleep apnea (adult) (pediatric) Status: Acute Assessment and Plan: -continue CPAP home settings (9) Depression: Code(s): F32.9 - Major depressive disorder, single episode, unspecified Status: Acute Assessment and Plan: She has a history of depression. I am not sure if she still on any medication. (10) Hypomagnesemia: Code(s): E83.42 - Hypomagnesemia Status: Acute Assessment and Plan: magnesium 1.7 and replaced continue to monitor (11) Hypoxia: Code(s): R09.02 - Hypoxemia Status: Acute Assessment and Plan: -patient oxygen dropped in the 80s overnight and patient was put on 2 L of oxygen. -patient not normally on oxygen at home -patient does have history of COPD and uses inhalers as needed -repeat chest x-ray ordered and revealed clear lungs -will order nebulizer treatments. Time Spent With Patient Time with patient: Greater than 35 minutes Subjective Date/time seen: 08/29/22 12:44 Interval history: 86-year-old female with history of hypertension, hypothyroidism, COPD and CKD. Patient is resting in bed while being interviewed. Patient still has not have a bowel movement although she has been taking her laxative. Patient denies abdominal pain nausea vomiting. Patient states t
[2022-08-29] MEDS: polyethylene glycoL 3350 17 GM POWD.PACK PO (13:23)
[2022-08-29 13:57] LABS: Potassium 3.2 mmol/L (3.4-5.0)
[2022-08-29] MEDS: ALBUTEROL SULFATE NEB 2.5 MG/3 ML INH INHALATION (21:01)
[2022-08-29] MEDS: IPRATROPIUM BR 0.02% INH SOLN 0.5 MG/2.5 ML VIAL INHALATION (21:01)
--- NOTE | 2022-08-29 21:33 | PM.PNNEP ---
Progress Note: A&P Assessment and Plan (1) Acute hypokalemia: Code(s): E87.6 - Hypokalemia Status: Acute Assessment and Plan: the potassium was very low in the emergency room. Her urine potassium was fairly low. it improved at first and now low again. Most likely the low potassium is from diuretics. will give spironolactone. she will need diuretics in the future at some point. will try to get potassium normal before restarting the loop diuretics. (2) Generalized edema: Code(s): R60.1 - Generalized edema Status: Acute Assessment and Plan: The patient has swelling. she has multiple possible causes of this. She is on amlodipine. Will discontinue this. She has reversible airways disease. echo done as an outpatient shows no right sided elevated pressors. She has cirrhosis. She has diastolic dysfunction. It would be nice to decrease swelling by treating the underlying cause rather than more diuretics. Discussed with the patient at length. right now edema isn't too bad. will leave off loop diuretics now. perhaps stopping the amlodipine will help prevent the edema from returning. (3) Stage 3b chronic kidney disease (CKD): Code(s): N18.32 - Chronic kidney disease, stage 3b Status: Acute Assessment and Plan: The patient has chronic kidney disease. Her baseline creatinine is 1.4. She is at her baseline currently. She sees Dr. Gutierrez in the clinic. She is on supportive care. (4) Hyponatremia: Code(s): E87.1 - Hypo-osmolality and hyponatremia Status: Acute Assessment and Plan: The sodium is low. This is probably due to diuretics. watch one more day (5) Metabolic alkalosis: Code(s): E87.3 - Alkalosis Status: Acute Assessment and Plan: The bicarbonate is high. This is also probably due to diuretics. Subjective Date/time seen: 08/29/22 21:33 Interval history: alert. feels about the same. no cp or sob. minimal edema. Review of Systems Cardiovascular: Cardiovascular: Reports no additional cardiovascular complaints Respiratory: Respiratory: Reports no additional respiratory complaints Gastrointestinal: Gastrointestinal: Reports no additional gastrointestinal complaints Genitourinary: Genitourinary: Reports no additional female genitourinary complaints Exam Narrative: WDWN in NAD skin no rash head ncat lungs clear cor reg no rub abd BS+ nontender and soft ext no edema. Objective Data Vital Signs Vital Signs: Vital Signs - 24 hr 08/28/22 21:41 08/28/22 22:30 08/29/22 05:51 Temperature 97.4 F L 98.1 F 97.4 F L Pulse Rate 81 81 90 Respiratory Rate 20 22 H 22 H Blood Pressure 134/53 L 149/60 H 133/69 Pulse Oximetry 91 92 92 Oxygen Delivery Nasal Cannula Oxygen Flow Rate 2 08/29/22 04:00 08/29/22 08:00 08/29/22 08:00 Temperature Pulse Rate 80 80 Respiratory Rate Blood Pressure Pulse Oximetry 95 Oxygen Delivery Nasal Cannula Oxygen Flow Rate 2 08/29/22 12:00 08/29/22 14:00 08/29/22 16:00 Temperature 97.8 F Pulse Rate 65 77 70 Respiratory Rate 20 Blood Pressure 125/60 Pulse Oximetry 100 Oxygen Delivery Oxygen Flow Rate 08/29/22 20:00 08/29/22 21:02 08/29/22 21:09 Temperature Pulse Rate 77 Respiratory Rate 20 Blood Pressure Pulse Oximetry 100 94 Oxygen Delivery Nasal Cannula Nasal Cannula Oxygen Flow Rate 2 2 08/29/22 21:12 Temperature Pulse Rate 72 Respiratory Rate 20 Blood Pressure Pulse Oximetry Oxygen Delivery Oxygen Flow Rate Intake/Output Intake/Output: Intake & Output 08/26/22 08/27/22 08/28/22 08/29/22 23:59 23:59 23:59 23:59 Intake Total 240 1560 1950 Output Total 1450 1400 Balance 240 110 550 Meds/Results Medications: Active Medications Generic Name Dose Route Start Last Admin Trade Name Freq PRN Reason Stop Dose Admin Acetamino
[2022-08-30] VITALS (15 sets, daily range): BP systolic 118–140; BP diastolic 46–58; PULSE 70–100; RESP 14–20; TEMP 36.4–36.8; O2SAT 91–96
[2022-08-30 00:35] LABS: Creatinine Urine 69.3 mg/dL; Potassium Urine Random 28.3 meq/L; Total Protein Urine Random 10 mg/dL; Ur Ttl Prot Creatinine Ratio 0.14 mg/mg (0-0.20); Urea Random Urine 468 MG/DL
[2022-08-30] MEDS: ALBUTEROL SULFATE NEB 2.5 MG/3 ML INH INHALATION ×3 (01:24→14:55)
[2022-08-30] MEDS: IPRATROPIUM BR 0.02% INH SOLN 0.5 MG/2.5 ML VIAL INHALATION ×3 (01:24→14:55)
[2022-08-30] MEDS: LEVOTHYROXINE SODIUM 75 MCG TABLET PO (05:25)
[2022-08-30] MEDS: HYDROcodone/acetaminophen (*CRX) 7.5-325 MG TABLET 1 TAB PO ×3 (05:25→17:29)
[2022-08-30] MEDS: POTASSIUM CHLORIDE 10 MEQ TABLET.ER 20 MEQ PO (08:38)
[2022-08-30] MEDS: IRBESARTAN 150 MG TABLET PO (08:38)
[2022-08-30] MEDS: MONTELUKAST SODIUM 10 MG TABLET PO (08:38)
[2022-08-30] MEDS: ALPRAZolam (*CRX) 0.5 MG TABLET PO ×2 (08:38→20:20)
[2022-08-30] MEDS: SPIRONOLACTONE 25 MG TABLET PO (08:38)
[2022-08-30] MEDS: CLOPIDOGREL BISULFATE 75 MG TABLET PO (08:38)
[2022-08-30] MEDS: LIDOCAINE 5% PATCH 1 PATCH TRANSDERM (09:14)
[2022-08-30 10:12] LABS: Hematocrit 33.9 % (37.0-47.0); Hemoglobin 11.4 g/dL (12.0-15.0); Mean Corpuscular HGB Conc 33.6 g/dl (32-36); Mean Corpuscular Hemoglobin 28.9 pg (26-34); Mean Corpuscular Volume 85.8 fl (80-100); Mean Platelet Volume 9.2 fl (7.4-10.4); Platelet Count Result 388 k/mm3 (150-375); Red Blood Count 3.95 M/mm3 (4.2-5.4); Red Cell Distribution Width 14.4 % (11.5-14.5); White Blood Count 14.3 K/mm3 (4.5-10.0)
[2022-08-30 10:49] LABS: Alanine Aminotransferase 22 U/L (6-35); Albumin Level 3.9 g/dL (3.5-5.1); Alkaline Phosphatase 107 U/L (38-126); Anion Gap 11 mmol/L (8-16); Aspartate Amino Transferase 28 U/L (14-36); Bilirubin,Total 0.8 mg/dL (0.2-1.3); Blood Urea Nitrogen 51 mg/dL (7-17); Calcium 8.6 mg/dL (8.4-10.2); Carbon Dioxide 28 mmol/L (22-30); Chloride 94 mmol/L (98-107); Estimated CRCL calculation 35 ml/min; Estimated Glomerular Filt Rate 39; Glucose 181 mg/dL (65-110); Magnesium 2.3 mg/dL (1.6-2.3); Phosphorus 3.6 mg/dL (2.5-4.5); Potassium 3.3 mmol/L (3.4-5.0); Sodium 133 mmol/L (137-145)
--- NOTE | 2022-08-30 11:08 | PM.DS ---
DS: Summary Time Spent with Patient Time attestation: Total time spent providing and/or coordinating discharge services: DS: Data Data Completed and Pending Labs on day of discharge: Labs from last 24 hours 08/30/22 08/30/22 08/30/22 09:53 09:53 00:21 WBC 14.3 H RBC 3.95 L Hgb 11.4 L Hct 33.9 L MCV 85.8 MCH 28.9 MCHC 33.6 RDW 14.4 Plt Count 388 H MPV 9.2 Sodium 133 L Potassium 3.3 L Chloride 94 L Carbon Dioxide 28 Anion Gap 11 BUN 51 H Creatinine 1.30 H Estim Creat Clear Calc 35 Estimated GFR 39 L Glucose 181 H Calcium 8.6 Phosphorus 3.6 Magnesium 2.3 Total Bilirubin 0.8 AST 28 ALT 22 Alkaline Phosphatase 107 Total Protein 7.0 Albumin 3.9 U Random Total Protein 10 Ur Random Potassium 28.3 Ur Random Urea 468 Urine Creatinine 69.3 Protein/Creat Ratio 2 0.14 08/29/22 13:28 WBC RBC Hgb Hct MCV MCH MCHC RDW Plt Count MPV Sodium Potassium 3.2 L Chloride Carbon Dioxide Anion Gap BUN Creatinine Estim Creat Clear Calc Estimated GFR Glucose Calcium Phosphorus Magnesium Total Bilirubin AST ALT Alkaline Phosphatase Total Protein Albumin U Random Total Protein Ur Random Potassium Ur Random Urea Urine Creatinine Protein/Creat Ratio 2 Discharge Plan Discharge Consulting providers: Thomas Sy Patient Instructions: Hypokalemia (DC), Weakness (DC) Discharge Medications: New spironolactone 25 mg Tablet 25 mg PO QAM Qty: 30 0RF Continued atorvastatin 10 mg tablet 10 mg PO DAILY irbesartan 150 mg tablet 150 mg PO DAILY Qty: 90 1RF potassium chloride 10 mEq tablet extended release 20 meq PO DAILY alprazolam [Xanax] 0.5 mg tablet 0.5 mg PO QID PRN (Reason: Anxiety) montelukast 10 mg tablet 10 mg PO DAILY Qty: 90 1RF esomeprazole magnesium [Nexium] 20 mg capsule,delayed release(DR/EC) 20 mg PO DAILY Qty: 90 1RF amlodipine [Norvasc] 5 mg tablet 5 mg PO DAILY Qty: 30 3RF levothyroxine 75 mcg tablet 75 mcg PO DAILY Qty: 30 2RF ondansetron HCl 4 mg tablet 4 mg PO DAILY PRN (Reason: nausea and vomiting) Qty: 30 2RF clopidogrel [Plavix] 75 mg tablet 75 mg PO DAILY Qty: 30 2RF Discontinued metolazone 5 mg tablet 5 mg PO .COMPLEX Rx Instructions: 5 mg orally Friday, , Friday; bumetanide 2 mg tablet 4 mg PO BID Date of admission: 08/28/22 14:57 Primary Care Provider: Irving Montes Admitting Provider: Prashanth Dillard Attending physician on admission: Prashanth Dillard Condition: Stable
--- NOTE | 2022-08-30 12:14 | PM.IMPN ---
Progress Note: A&P Assessment and Plan (1) Acute hypokalemia: Code(s): E87.6 - Hypokalemia Status: Acute Assessment and Plan: Patient originally came to the ER due to falling on her knees and was found to have hypokalemia -potassium replaced as necessary. -EKG was read as sinus rhythm no previous EKG available for comparison. -patient started back on her home potassium supplement of 20 mg twice a day -since starting home potassium potassium has increased slowly. -continue with at home potassium supplement. -started 2 mg Bumex back to day and will recheck potassium in 6 hours after initiating Bumex. -replete potassium as needed after he makes has been given -goal to get patient's potassium stable and calculated how much potassium patient will need going home. -plan for discharge once patient's potassium has level out. (2) Anxiety: Code(s): F41.9 - Anxiety disorder, unspecified Status: Acute Assessment and Plan: -continue with Syed (3) Chronic kidney disease, stage 3: Qualifiers: Chronic kidney disease stage 3 subtype: stage 3a (GFR 45-59) Qualified Code(s): N18.31 - Chronic kidney disease, stage 3a Code(s): N18.3 - Chronic kidney disease, stage 3 (moderate) Status: Acute Assessment and Plan: Avoid any nephrotoxic medication BUN is 53 and creatinine is 1.4. The patient sees Dr. Gutierrez outpatient [facility]. Her baseline is anywhere from 1.4 to 2.10. (4) COPD (chronic obstructive pulmonary disease): Qualifiers: COPD type: unspecified COPD Qualified Code(s): J44.9 - Chronic obstructive pulmonary disease, unspecified Code(s): J44.9 - Chronic obstructive pulmonary disease, unspecified Status: Acute Assessment and Plan: -continue home meds (5) HTN (hypertension): Qualifiers: Hypertension type: primary hypertension Qualified Code(s): I10 - Essential (primary) hypertension Code(s): I10 - Essential (primary) hypertension Status: Acute Assessment and Plan: -continue with irbesartan -hold metolazone at this time due to low potassium -continue with spironolactone -continue with amlodipine (6) Hypothyroidism: Qualifiers: Hypothyroidism type: acquired Qualified Code(s): E03.9 - Hypothyroidism, unspecified Code(s): E03.9 - Hypothyroidism, unspecified Status: Acute Assessment and Plan: -check thyroid level continue with levothyroxine (7) Leg weakness, bilateral: Code(s): R29.898 - Other symptoms and signs involving the musculoskeletal system Status: Acute Assessment and Plan: -PT and OT evaluation greatly be appreciated. -Chest x-ray was negative. No other signs and symptoms of infection at this time. -check magnesium. -replace potassium as necessary. (8) Obstructive sleep apnea: Code(s): G47.33 - Obstructive sleep apnea (adult) (pediatric) Status: Acute Assessment and Plan: -continue CPAP home settings (9) Depression: Code(s): F32.9 - Major depressive disorder, single episode, unspecified Status: Acute Assessment and Plan: She has a history of depression. I am not sure if she still on any medication. (10) Hypomagnesemia: Code(s): E83.42 - Hypomagnesemia Status: Acute Assessment and Plan: magnesium 1.7 and replaced continue to monitor (11) Hypoxia: Code(s): R09.02 - Hypoxemia Status: Acute Assessment and Plan: -patient oxygen dropped in the 80s overnight and patient was put on 2 L of oxygen. -patient not normally on oxygen at home -patient does have history of COPD and uses inhalers as needed -repeat chest x-ray ordered and revealed clear lungs -will order nebulizer treatments. Subjective Date/time seen: 08/30/22 12:14 Interval history: 86-year-old female with history of hypertension, hypothyroidism, COPD and CKD. Patient states that she has had bowel mov
[2022-08-30] MEDS: POTASSIUM CHLORIDE 20 MEQ PACKET (FOR LIQUID) 40 MEQ PO (12:20)
[2022-08-30] MEDS: BUMETANIDE 1 MG TABLET 2 MG PO (13:25)
[2022-08-30 17:01] LABS: Anion Gap 7 mmol/L (8-16); Blood Urea Nitrogen 55 mg/dL (7-17); Calcium 8.9 mg/dL (8.4-10.2); Carbon Dioxide 33 mmol/L (22-30); Chloride 91 mmol/L (98-107); Estimated CRCL calculation 31 ml/min; Estimated Glomerular Filt Rate 33; Glucose 149 mg/dL (65-110); Potassium 3.3 mmol/L (3.4-5.0); Sodium 131 mmol/L (137-145)
--- NOTE | 2022-08-30 17:11 | ECHO_ITS ---
Patient Info Name: Lucille Vasques Age: 86 years : 1935 Gender: Female Ht: 66 in Wt: 248 lbs BSA: 2.34 m2 HR: 90 bpm BP: 140 / 46 mmHg Heart Rhythm: Sinus Rhythm Exam Date: 08/30/2022 8:09 AM Exam Location: [facility] Patient Status: Inpatient Admit Date: 08/28/2022 Staff Ordering Physician: Thomas Sy MD Behavioral Medical Director: Leroy Sunshine, BRADY, RT Attending Provider: Prashanth Dillard MD Referring Physician: Kerrie LUO; Exam Type: CA echo doppler color flow Study Info Indications R60.0 - Localized edema Complete two-dimensional, color flow and Doppler transthoracic echocardiogram is performed. Strain analysis performed. Summary 1. Complete two-dimensional, color flow and Doppler transthoracic echocardiogram is performed. 2. Normal left ventricular size normal systolic function and grade 1 diastolic noncompliance. 3. Sclerotic but not stenotic aortic valve. 4. Normal RV size. Left Ventricle Left ventricular chamber dimension is normal. Left ventricular systolic function is normal, estimated at 65-70%. The left ventricular diastolic function is grade I diastolic dysfunction. Global longitudinal strain is normal at -23 %. Right Ventricle Right ventricular chamber dimension is normal. Left Atria Left atrial chamber dimension is normal. Right Atria Right atrial chamber dimension is normal. Aortic Valve The aortic valve is trileaflet. There is mild aortic valve sclerosis. Pulmonic Valve The pulmonic valve is not well visualized. Mitral Valve The mitral valve has normal leaflets. The mitral valve annulus is mildly calcified. Tricuspid Valve The tricuspid valve leaflets are normal. Pericardium/Pleural The pericardium appears normal. Aorta The aortic root size at the sinus of Valsalva is normal. Left Ventricular Outflow Tract Name Value Normal LVOT 2D LVOT Diameter 2.0 cm LVOT Doppler LVOT Peak Gradient 7 mmHg LVOT Mean Gradient 3 mmHg LVOT VTI 23 cm LVOT VTI/AV VTI Ratio 0.7 LVOT Stroke Volume 71 ml LVOT CO 6.4 l/min LVOT CI 2.7 l/min/m2 Mitral Valve Name Value Normal MV Doppler MV Decel [place] 395 cm/s2 MV PHT 67 ms MV Area (PHT) 3.3 cm2 4.0-5.0 MV Diastolic Function MV E Peak Velocity 91 cm/s MV A Peak Velocity 129 cm/s MV E/A 0.7 MV Decel Time 231 ms MV Annular TDI ---
--- NOTE | 2022-08-30 20:08 | PM.EVENT ---
Event Note Event Note Event Note: Called to see patient due to significant anxiety and concern for not getting her xanax. Home xanax restarted. Repeat CXR ordered per patient request due to worsening side pain. Discussed diuretic therapy and why we started aldactone and then bumex as a one time dose due to her worsening edema. All questions answered. Patient feeling much better and relaxed at this time.
--- NOTE | 2022-08-30 20:31 | PCRCNOTE ---
Per pt she does not need Breathing TX and will refuse them for tonight. RN informed
[2022-08-30] MEDS: POTASSIUM CHLORIDE 20 MEQ TABLET 40 MEQ PO (20:52)
[2022-08-30] MEDS: ALPRAZolam (*CRX) 0.5 MG TABLET 1 MG PO (20:52)
--- NOTE | 2022-08-30 22:18 | PM.PNNEP ---
Progress Note: A&P Assessment and Plan (1) Acute hypokalemia: Code(s): E87.6 - Hypokalemia Status: Acute Assessment and Plan: Potassium still low. probably total body potassium depletion. getting routine potassium and also PRN doses. on spironolactone. (2) Generalized edema: Code(s): R60.1 - Generalized edema Status: Acute Assessment and Plan: The patient has swelling. she has multiple possible causes of this. She is on amlodipine. Will discontinue this. She has reversible airways disease. echo done as an outpatient shows no right sided elevated pressors. She has cirrhosis. She has diastolic dysfunction. edema isn't very bad. possibly since she is off the amlodipine. I agree with not using loop diuretics now, doyle since her K has been low. (3) Stage 3b chronic kidney disease (CKD): Code(s): N18.32 - Chronic kidney disease, stage 3b Status: Acute Assessment and Plan: The patient has chronic kidney disease. Her baseline creatinine is 1.4. She is at 1.[address] Gutierrez in the clinic. She is on supportive care. (4) Hyponatremia: Code(s): E87.1 - Hypo-osmolality and hyponatremia Status: Acute Assessment and Plan: The sodium is low. This is probably due to diuretics. sodium 131. (5) Metabolic alkalosis: Code(s): E87.3 - Alkalosis Status: Acute Assessment and Plan: The bicarbonate is high. This is also probably due to diuretics. Subjective Date/time seen: 08/30/22 22:18 Interval history: she has a little swelling no cp or sob Exam Narrative: WDWN in NAD skin no rash head ncat lungs clear cor reg no rub abd BS+ nontender and soft ext trace edema. Objective Data Vital Signs Vital Signs: Vital Signs - 24 hr 08/30/22 01:25 08/30/22 01:34 08/29/22 22:56 Temperature Pulse Rate 77 79 70 Respiratory Rate 20 20 Blood Pressure Pulse Oximetry Oxygen Delivery Oxygen Flow Rate 08/30/22 04:00 08/30/22 05:03 08/30/22 08:08 Temperature 98.1 F Pulse Rate 89 71 Respiratory Rate 14 Blood Pressure 140/46 L Pulse Oximetry 96 96 Oxygen Delivery Nasal Cannula Oxygen Flow Rate 2 08/30/22 08:08 08/30/22 08:24 08/30/22 09:01 Temperature Pulse Rate 80 88 Respiratory Rate 20 20 Blood Pressure Pulse Oximetry 92 Oxygen Delivery Room Air Oxygen Flow Rate 08/30/22 08:15 08/30/22 08:00 08/30/22 12:00 Temperature Pulse Rate 92 80 Respiratory Rate Blood Pressure Pulse Oximetry Oxygen Delivery Room Air Oxygen Flow Rate 08/30/22 14:57 08/30/22 15:11 08/30/22 14:00 Temperature 98.2 F Pulse Rate 84 90 70 Respiratory Rate 20 20 16 Blood Pressure 138/58 L Pulse Oximetry 95 Oxygen Delivery Oxygen Flow Rate 08/30/22 16:00 Temperature Pulse Rate 100 Respiratory Rate Blood Pressure Pulse Oximetry Oxygen Delivery Oxygen Flow Rate Intake/Output Intake/Output: Intake & Output 08/27/22 08/28/22 08/29/22 08/30/22 23:59 23:59 23:59 23:59 Intake Total 240 1560 1950 1920 Output Total 1450 1400 2300 Balance 240 110 550 -380 Meds/Results Medications: Active Medications Generic Name Dose Route Start Last Admin Trade Name Freq PRN Reason Stop Dose Admin Acetaminophen 650 mg 08/27/22 10:32 Acetaminophen 325 Mg Tablet PO Q4H PRN Mild Pain (1-3) or Fever Hydrocodone Bitart/Acetaminophen 1 tab 08/27/22 21:49 08/30/22 17:29 Hydrocodone/Acetaminophen (*Crx) 7.5-325 Mg Tablet PO 1 tab Q4H PRN Administration Pain Rated >5 Albuterol 2.5 mg 08/30/22 14:00 08/30/22 20:30 Albuterol Sulfate Neb 2.5 Mg/3 Ml Inh INHALATION Not Given Q6HRT KAVITHA Alprazolam 0.5 mg 08/27/22 23:05 08/30/22 20:20 Alprazolam (*Crx) 0.5 Mg Tablet PO 0.5 mg Q12HR KAVITHA Administration Alprazolam 1 mg 08/31/22 02:00 Alprazolam (*Cr
[2022-08-31] VITALS (15 sets, daily range): BP systolic 107–150; BP diastolic 41–59; PULSE 81–113; RESP 16–22; TEMP 36.4–37.2; O2SAT 90–96
[2022-08-31] MEDS: ALPRAZolam (*CRX) 0.5 MG TABLET 1 MG PO (01:33)
[2022-08-31] MEDS: LEVOTHYROXINE SODIUM 75 MCG TABLET PO (06:30)
[2022-08-31 07:04] LABS: Hematocrit 31.9 % (37.0-47.0); Hemoglobin 10.4 g/dL (12.0-15.0); Mean Corpuscular HGB Conc 32.6 g/dl (32-36); Mean Corpuscular Hemoglobin 27.8 pg (26-34); Mean Corpuscular Volume 85.3 fl (80-100); Platelet Count Result 426 k/mm3 (150-375); Red Blood Count 3.74 M/mm3 (4.2-5.4); Red Cell Distribution Width 14.3 % (11.5-14.5); White Blood Count 14.7 K/mm3 (4.5-10.0)
[2022-08-31 07:16] LABS: Alanine Aminotransferase 18 U/L (6-35); Albumin Level 3.6 g/dL (3.5-5.1); Alkaline Phosphatase 97 U/L (38-126); Anion Gap 6 mmol/L (8-16); Aspartate Amino Transferase 24 U/L (14-36); Bilirubin,Total 0.7 mg/dL (0.2-1.3); Blood Urea Nitrogen 48 mg/dL (7-17); Calcium 8.9 mg/dL (8.4-10.2); Carbon Dioxide 32 mmol/L (22-30); Chloride 93 mmol/L (98-107); Estimated CRCL calculation 38 ml/min; Estimated Glomerular Filt Rate 43; Glucose 135 mg/dL (65-110); Phosphorus 3.5 mg/dL (2.5-4.5); Potassium 3.7 mmol/L (3.4-5.0); Sodium 131 mmol/L (137-145)
[2022-08-31] MEDS: POTASSIUM CHLORIDE 10 MEQ TABLET.ER 20 MEQ PO (07:59)
[2022-08-31] MEDS: SPIRONOLACTONE 25 MG TABLET PO (07:59)
[2022-08-31] MEDS: MONTELUKAST SODIUM 10 MG TABLET PO (07:59)
[2022-08-31] MEDS: CLOPIDOGREL BISULFATE 75 MG TABLET PO (07:59)
[2022-08-31] MEDS: LIDOCAINE 5% PATCH 1 PATCH TRANSDERM (07:59)
[2022-08-31] MEDS: ALPRAZolam (*CRX) 0.5 MG TABLET PO ×3 (08:00→21:47)
[2022-08-31] MEDS: IRBESARTAN 150 MG TABLET 300 MG PO (08:00)
--- NOTE | 2022-08-31 08:17 | PM.PNNEP ---
Progress Note: A&P Assessment and Plan (1) Acute hypokalemia: Code(s): E87.6 - Hypokalemia Status: Acute Assessment and Plan: Potassium Normal today she is getting potassium 20 mEq daily on spironolactone. will check another potassium this afternoon (2) Generalized edema: Code(s): R60.1 - Generalized edema Status: Acute Assessment and Plan: The patient has swelling. it is much improved since off the amlodipine. she has multiple possible causes of this. She is on amlodipine. Will discontinue this. She has reversible airways disease. echo done as an outpatient shows no right sided elevated pressors. She has cirrhosis. She has diastolic dysfunction. Discussed with patient. Blood pressure is a little higher so I increase the irbesartan. (3) Stage 3b chronic kidney disease (CKD): Code(s): N18.32 - Chronic kidney disease, stage 3b Status: Acute Assessment and Plan: The patient has chronic kidney disease. Her baseline creatinine is 1.4. Creatinine is 1.2 today. Perhaps the baseline creatinine was while she was on diuretics. She sees Dr. Gutierrez in the clinic. She is on supportive care. (4) Hyponatremia: Code(s): E87.1 - Hypo-osmolality and hyponatremia Status: Acute Assessment and Plan: The sodium is low. This is probably due to diuretics. sodium 131. Will check a cortisol level (5) Metabolic alkalosis: Code(s): E87.3 - Alkalosis Status: Acute Assessment and Plan: The bicarbonate is high. This is also probably due to diuretics. Subjective Date/time seen: 08/31/22 08:17 Interval history: swelling seems better she says. no cp or sob Exam Narrative: WDWN in NAD skin no rash head ncat lungs clear cor reg no rub abd BS+ nontender and soft ext trace edema. Objective Data Vital Signs Vital Signs: Vital Signs - 24 hr 08/30/22 08:24 08/30/22 09:01 08/30/22 12:00 Temperature Pulse Rate 88 80 Respiratory Rate 20 Blood Pressure Pulse Oximetry 92 Oxygen Delivery Room Air 08/30/22 14:57 08/30/22 15:11 08/30/22 14:00 Temperature 98.2 F Pulse Rate 84 90 70 Respiratory Rate 20 20 16 Blood Pressure 138/58 L Pulse Oximetry 95 Oxygen Delivery 08/30/22 16:00 08/30/22 20:00 08/30/22 22:00 Temperature 97.5 F L Pulse Rate 100 85 Respiratory Rate 18 Blood Pressure 118/51 L Pulse Oximetry 91 Oxygen Delivery Room Air 08/30/22 20:00 08/31/22 00:00 08/31/22 04:00 Temperature Pulse Rate 95 81 83 Respiratory Rate Blood Pressure Pulse Oximetry Oxygen Delivery 08/31/22 06:00 Temperature 99.0 F Pulse Rate 87 Respiratory Rate 22 H Blood Pressure 150/57 H Pulse Oximetry 92 Oxygen Delivery Intake/Output Intake/Output: Intake & Output 08/28/22 08/29/22 08/30/22 08/31/22 23:59 23:59 23:59 23:59 Intake Total 1560 1950 1920 200 Output Total 1450 1400 2300 Balance 110 550 -380 200 Meds/Results Medications: Active Medications Generic Name Dose Route Start Last Admin Trade Name Freq PRN Reason Stop Dose Admin Acetaminophen 650 mg 08/27/22 10:32 Acetaminophen 325 Mg Tablet PO Q4H PRN Mild Pain (1-3) or Fever Hydrocodone Bitart/Acetaminophen 1 tab 08/27/22 21:49 08/30/22 17:29 Hydrocodone/Acetaminophen (*Crx) 7.5-325 Mg Tablet PO 1 tab Q4H PRN Administration Pain Rated >5 Albuterol 2.5 mg 08/30/22 14:00 08/30/22 20:30 Albuterol Sulfate Neb 2.5 Mg/3 Ml Inh INHALATION Not Given Q6HRT KAVITHA Alprazolam 0.5 mg 08/27/22 23:05 08/31/22 08:00 Alprazolam (*Crx) 0.5 Mg Tablet PO 0.5 mg Q12HR KAVITHA Administration Alprazolam 1 mg 08/30/22 19:53 Alprazolam (*Crx) 0.5 Mg Tablet PO BID PRN Anxiety Clopidogrel Bisulfate 75 mg 08/28/22 09:00 08/31/22 07:59 Clopidogrel Bisulfate 75 Mg Tablet PO 75 mg DAILY KAVITHA Admi
--- NOTE | 2022-08-31 08:45 | PM.IMPN ---
Progress Note: A&P Assessment and Plan (1) Acute hypokalemia: Code(s): E87.6 - Hypokalemia Status: Acute Assessment and Plan: Patient originally came to the ER due to falling on her knees and was found to have hypokalemia -potassium replaced as necessary. -EKG was read as sinus rhythm no previous EKG available for comparison. -patient started back on her home potassium supplement of 20 mg twice a day -since starting home potassium potassium has increased slowly. -continue with at home potassium supplement. -started 2 mg Bumex back to day and will recheck potassium in 6 hours after initiating Bumex. -replete potassium as needed -goal to get patient's potassium stable and calculated how much potassium patient will need going home. -08/31/22 patient started back on 2 mg Bumex once a day. Patient's kidneys responded well to Bumex. Potassium on hold due to patient's potassium being 3.7 today. Will reassess tomorrow on how much potassium needs to be replaced on 2 mg Bumex. Depending on the amount of potassium needing be replaced patient can be discharged with that regimen of PO potassium daily. Discussed with attending physician and Dr. Sy and they are both in agreement with this plan. (2) Anxiety: Code(s): F41.9 - Anxiety disorder, unspecified Status: Acute Assessment and Plan: -continue home medications of Xanax (3) Chronic kidney disease, stage 3: Qualifiers: Chronic kidney disease stage 3 subtype: stage 3a (GFR 45-59) Qualified Code(s): N18.31 - Chronic kidney disease, stage 3a Code(s): N18.3 - Chronic kidney disease, stage 3 (moderate) Status: Acute Assessment and Plan: Avoid any nephrotoxic medication The patient sees Dr. Gutierrez outpatient. Her baseline is anywhere from 1.4 to 2.10. (4) COPD (chronic obstructive pulmonary disease): Qualifiers: COPD type: unspecified COPD Qualified Code(s): J44.9 - Chronic obstructive pulmonary disease, unspecified Code(s): J44.9 - Chronic obstructive pulmonary disease, unspecified Status: Acute Assessment and Plan: -continue home meds (5) HTN (hypertension): Qualifiers: Hypertension type: primary hypertension Qualified Code(s): I10 - Essential (primary) hypertension Code(s): I10 - Essential (primary) hypertension Status: Acute Assessment and Plan: -continue with irbesartan -hold metolazone at this time due to low potassium -continue with spironolactone -continue with amlodipine (6) Hypothyroidism: Qualifiers: Hypothyroidism type: acquired Qualified Code(s): E03.9 - Hypothyroidism, unspecified Code(s): E03.9 - Hypothyroidism, unspecified Status: Acute Assessment and Plan: -check thyroid level continue with levothyroxine (7) Leg weakness, bilateral: Code(s): R29.898 - Other symptoms and signs involving the musculoskeletal system Status: Acute Assessment and Plan: -PT and OT evaluation greatly be appreciated. -Chest x-ray was negative. No other signs and symptoms of infection at this time. -check magnesium. -replace potassium as necessary. (8) Obstructive sleep apnea: Code(s): G47.33 - Obstructive sleep apnea (adult) (pediatric) Status: Acute Assessment and Plan: -continue CPAP home settings (9) Depression: Code(s): F32.9 - Major depressive disorder, single episode, unspecified Status: Acute Assessment and Plan: She has a history of depression. I am not sure if she still on any medication. (10) Hypomagnesemia: Code(s): E83.42 - Hypomagnesemia Status: Acute Assessment and Plan: magnesium 1.7 and replaced continue to monitor (11) Hypoxia: Code(s): R09.02 - Hypoxemia Status: Acute Assessment and Plan: -patient oxygen dropped in the 80s overnight and patient was put on 2 L of oxygen. -patient not normally on oxy
[2022-08-31] MEDS: BUMETANIDE 1 MG TABLET 2 MG PO (08:48)
[2022-08-31] MEDS: HYDROcodone/acetaminophen (*CRX) 7.5-325 MG TABLET 1 TAB PO ×2 (08:50→20:27)
[2022-08-31] MEDS: ONDANSETRON INJ 4 MG/2 ML VIAL IV PUSH (08:50)
[2022-08-31] MEDS: IPRATROPIUM BR 0.02% INH SOLN 0.5 MG/2.5 ML VIAL INHALATION ×3 (09:43→21:28)
[2022-08-31] MEDS: ALBUTEROL SULFATE NEB 2.5 MG/3 ML INH INHALATION ×3 (09:43→21:28)
[2022-08-31 15:58] LABS: Potassium 3.8 mmol/L (3.4-5.0)
[2022-08-31] MEDS: DOCUSATE SODIUM 100 MG CAPSULE PO (17:04)
[2022-08-31] MEDS: polyethylene glycoL 3350 17 GM POWD.PACK PO (17:04)
[2022-09-01] VITALS (12 sets, daily range): BP systolic 141–154; BP diastolic 55–78; PULSE 86–113; RESP 18–22; TEMP 36.4–37.4; O2SAT 91–94
[2022-09-01] MEDS: ALBUTEROL SULFATE NEB 2.5 MG/3 ML INH INHALATION ×3 (02:29→20:45)
[2022-09-01] MEDS: IPRATROPIUM BR 0.02% INH SOLN 0.5 MG/2.5 ML VIAL INHALATION ×3 (02:29→20:45)
[2022-09-01] MEDS: ONDANSETRON INJ 4 MG/2 ML VIAL IV PUSH (02:42)
[2022-09-01] MEDS: ALPRAZolam (*CRX) 0.5 MG TABLET PO ×3 (02:44→16:31)
[2022-09-01] MEDS: LEVOTHYROXINE SODIUM 75 MCG TABLET PO (05:58)
[2022-09-01 07:08] LABS: Hematocrit 33.4 % (37.0-47.0); Hemoglobin 10.7 g/dL (12.0-15.0); Mean Corpuscular Volume 90.5 fl (80-100); Mean Platelet Volume 9.2 fl (7.4-10.4); Platelet Count Result 422 k/mm3 (150-375); Red Blood Count 3.69 M/mm3 (4.2-5.4); Red Cell Distribution Width 14.4 % (11.5-14.5); White Blood Count 16.4 K/mm3 (4.5-10.0)
[2022-09-01 07:16] LABS: Albumin Level 3.6 g/dL (3.5-5.1); Anion Gap 7 mmol/L (8-16); Blood Urea Nitrogen 46 mg/dL (7-17); Calcium 9.2 mg/dL (8.4-10.2); Carbon Dioxide 31 mmol/L (22-30); Chloride 93 mmol/L (98-107); Estimated CRCL calculation 33 ml/min; Estimated Glomerular Filt Rate 36; Glucose 141 mg/dL (65-110); Potassium 3.7 mmol/L (3.4-5.0); Sodium 131 mmol/L (137-145)
[2022-09-01] MEDS: MONTELUKAST SODIUM 10 MG TABLET PO (08:52)
[2022-09-01] MEDS: BUMETANIDE 1 MG TABLET 2 MG PO (08:52)
[2022-09-01] MEDS: CLOPIDOGREL BISULFATE 75 MG TABLET PO (08:52)
[2022-09-01] MEDS: SPIRONOLACTONE 25 MG TABLET PO (08:52)
[2022-09-01] MEDS: ONDANSETRON HCL ODT 4 MG TABLET PO ×2 (08:56→16:31)
[2022-09-01] MEDS: HYDROcodone/acetaminophen (*CRX) 7.5-325 MG TABLET 1 TAB PO (08:56)
[2022-09-01] MEDS: IRBESARTAN 150 MG TABLET 300 MG PO (08:58)
[2022-09-01] MEDS: LIDOCAINE 5% PATCH 1 PATCH TRANSDERM (08:58)
--- NOTE | 2022-09-01 11:22 | PM.PNNEP ---
Progress Note: A&P Assessment and Plan (1) Acute hypokalemia: Code(s): E87.6 - Hypokalemia Status: Acute Assessment and Plan: Potassium Normal today on spironolactone. discussed with Dr. Linda yesterday. Apparently the plan is to discharge today. I would suggest bumetanide 2 mg once a day, spironolactone 25 mg once a day, and potassium 10 mEq per day. We can recheck her potassium on Friday and she should call the office for results. (2) Generalized edema: Code(s): R60.1 - Generalized edema Status: Acute Assessment and Plan: The patient has swelling. it is much improved since off the amlodipine. she has multiple possible causes of this. She is on amlodipine. Will discontinue this. She has reversible airways disease. echo done as an outpatient shows no right sided elevated pressors. She has cirrhosis. She has diastolic dysfunction. Discussed with patient. Blood pressure is Doing well on the higher dose of irbesartan without the amlodipine. (3) Stage 3b chronic kidney disease (CKD): Code(s): N18.32 - Chronic kidney disease, stage 3b Status: Acute Assessment and Plan: The patient has chronic kidney disease. Her baseline creatinine is 1.4. It is 1.[address] Gutierrez in the clinic. She is on supportive care. (4) Hyponatremia: Code(s): E87.1 - Hypo-osmolality and hyponatremia Status: Acute Assessment and Plan: The sodium is low. This is probably due to diuretics. sodium 131. cortisol level is okay. (5) Metabolic alkalosis: Code(s): E87.3 - Alkalosis Status: Acute Assessment and Plan: The bicarbonate is high. This is also probably due to diuretics. Subjective Date/time seen: 09/01/22 11:22 Interval history: Patient is not short of breath today. Not very swollen. Eating okay. She had some nausea this morning. Says this happens from time to time on a long-term basis. Exam Narrative: WDWN in NAD skin no rash head ncat lungs clear Bilaterally cor reg no rub abd BS+ nontender and soft ext trace edema. Objective Data Vital Signs Vital Signs: Vital Signs - 24 hr 08/31/22 12:00 08/31/22 14:00 08/31/22 16:00 Temperature 97.6 F Pulse Rate 113 H 103 H 105 H Respiratory Rate 21 H Blood Pressure 142/59 H Pulse Oximetry 91 Oxygen Delivery 08/31/22 15:03 08/31/22 15:27 08/31/22 21:32 Temperature Pulse Rate 87 87 98 Respiratory Rate 18 18 Blood Pressure Pulse Oximetry 92 Oxygen Delivery Room Air 08/31/22 21:32 08/31/22 22:00 08/31/22 20:00 Temperature 98.0 F Pulse Rate 98 101 H Respiratory Rate 18 16 Blood Pressure 107/41 L Pulse Oximetry 90 Oxygen Delivery Room Air 08/31/22 20:00 09/01/22 00:00 09/01/22 04:00 Temperature Pulse Rate 107 H 96 86 Respiratory Rate Blood Pressure Pulse Oximetry Oxygen Delivery 09/01/22 06:00 09/01/22 08:00 Temperature 97.5 F L Pulse Rate 86 97 Respiratory Rate 20 Blood Pressure 142/55 H Pulse Oximetry 94 Oxygen Delivery Intake/Output Intake/Output: Intake & Output 08/29/22 08/30/22 08/31/22 09/01/22 23:59 23:59 23:59 23:59 Intake Total 1950 1920 1520 320 Output Total 1400 2300 800 700 Balance 550 -380 720 -380 Meds/Results Medications: Active Medications Generic Name Dose Route Start Last Admin Trade Name Freq PRN Reason Stop Dose Admin Acetaminophen 650 mg 08/27/22 10:32 Acetaminophen 325 Mg Tablet PO Q4H PRN Mild Pain (1-3) or Fever Hydrocodone Bitart/Acetaminophen 1 tab 08/27/22 21:49 09/01/22 08:56 Hydrocodone/Acetaminophen (*Crx) 7.5-325 Mg Tablet PO 1 tab Q4H PRN Administration Pain Rated >5 Albuterol 2.5 mg 08/30/22 14:00 09/01/22 10:31 Albuterol Sulfate Neb 2.5 Mg/3 Ml Inh INHALATION Not Given Q6HRT KAVITHA Alprazolam 0.5 mg 08/31/22 20:54 1
--- NOTE | 2022-09-01 12:46 | P.DS_ITS ---
DS: Admitting Diagnosis Discharge Date 09/01/22 Admitting Diagnosis Hypokalemia, fall DS: Discharge Diagnosis Discharge Diagnosis (1) Acute hypokalemia: Code(s): E87.6 - Hypokalemia Status: Acute Assessment and Plan: Patient originally came to the ER due to falling on her knees and was found to have hypokalemia -potassium replaced as necessary. -EKG was read as sinus rhythm no previous EKG available for comparison. -patient started back on her home potassium supplement of 20 mg twice a day -since starting home potassium potassium has increased slowly. -continue with at home potassium supplement. -started 2 mg Bumex back to day and will recheck potassium in 6 hours after initiating Bumex. -replete potassium as needed -goal to get patient's potassium stable and calculated how much potassium patient will need going home. -08/31/22 patient started back on 2 mg Bumex once a day. Patient's kidneys responded well to Bumex. Potassium on hold due to patient's potassium being 3.7 today. Will reassess tomorrow on how much potassium needs to be replaced on 2 mg Bumex. Depending on the amount of potassium needing be replaced patient can be discharged with that regimen of PO potassium daily. Discussed with attending physician and Dr. Sy and they are both in agreement with this plan. (2) Anxiety: Code(s): F41.9 - Anxiety disorder, unspecified Status: Acute Assessment and Plan: -continue home medications of Xanax (3) Chronic kidney disease, stage 3: Qualifiers: Chronic kidney disease stage 3 subtype: stage 3a (GFR 45-59) Qualified Code(s): N18.31 - Chronic kidney disease, stage 3a Code(s): N18.3 - Chronic kidney disease, stage 3 (moderate) Status: Acute Assessment and Plan: Avoid any nephrotoxic medication The patient sees Dr. Gutierrez outpatient. Her baseline is anywhere from 1.4 to 2.10. (4) COPD (chronic obstructive pulmonary disease): Qualifiers: COPD type: unspecified COPD Qualified Code(s): J44.9 - Chronic obs tructive pulmonary disease, unspecified Code(s): J44.9 - Chronic obstructive pulmonary disease, unspecified Status: Acute Assessment and Plan: -continue home meds (5) HTN (hypertension): Qualifiers: Hypertension type: primary hypertension Qualified Code(s): I10 - Essential (primary) hypertension Code(s): I10 - Essential (primary) hypertension Status: Acute Assessment and Plan: -continue with irbesartan -hold metolazone at this time due to low potassium -continue with spironolactone -continue with amlodipine (6) Hypothyroidism: Qualifiers: Hypothyroidism type: acquired Qualified Code(s): E03.9 - Hypothyroidism, unspecified Code(s): E03.9 - Hypothyroidism, unspecified Status: Acute Assessment and Plan: -check thyroid level continue with levothyroxine (7) Leg weakness, bilateral: Code(s): R29.898 - Other symptoms and signs involving the musculoskeletal system Status: Acute Assessment and Plan: -PT and OT evaluation greatly be appreciated. -Chest x-ray was negative. No other signs and symptoms of infection at this time. -check magnesium. -replace potassium as necessary. (8) Obstructive sleep apnea: Code(s): G47.33 - Obstructive sleep apnea (adult) (pediatric) Status: Acute Assessment and Plan: -continue CPAP home settings (9) Depression: Code(s): F32.9 - Major depressive disorder, single episode, unspecified Status: Acute
--- NOTE | 2022-09-01 13:13 | PM.IMPN ---
Progress Note: A&P Assessment and Plan (1) Acute hypokalemia: Code(s): E87.6 - Hypokalemia Status: Acute Assessment and Plan: Patient originally came to the ER due to falling on her knees and was found to have hypokalemia -potassium replaced as necessary. -EKG was read as sinus rhythm no previous EKG available for comparison. -patient started back on her home potassium supplement of 20 mg twice a day -since starting home potassium potassium has increased slowly. -continue with at home potassium supplement. -started 2 mg Bumex back to day and will recheck potassium in 6 hours after initiating Bumex. -replete potassium as needed -goal to get patient's potassium stable and calculated how much potassium patient will need going home. -08/31/22 patient started back on 2 mg Bumex once a day. Patient's kidneys responded well to Bumex. Potassium on hold due to patient's potassium being 3.7 today. Will reassess tomorrow on how much potassium needs to be replaced on 2 mg Bumex. Depending on the amount of potassium needing be replaced patient can be discharged with that regimen of PO potassium daily. Discussed with attending physician and Dr. Sy and they are both in agreement with this plan. -09/01/2022 awaiting SNF placement. Patient potassium normal today and patient is cleared to be discharged. (2) Anxiety: Code(s): F41.9 - Anxiety disorder, unspecified Status: Acute Assessment and Plan: -continue home medications of Xanax (3) Chronic kidney disease, stage 3: Qualifiers: Chronic kidney disease stage 3 subtype: stage 3a (GFR 45-59) Qualified Code(s): N18.31 - Chronic kidney disease, stage 3a Code(s): N18.3 - Chronic kidney disease, stage 3 (moderate) Status: Acute Assessment and Plan: Avoid any nephrotoxic medication The patient sees Dr. Gutierrez outpatient. Her baseline is anywhere from 1.4 to 2.10. (4) COPD (chronic obstructive pulmonary disease): Qualifiers: COPD type: unspecified COPD Qualified Code(s): J44.9 - Chronic obstructive pulmonary disease, unspecified Code(s): J44.9 - Chronic obstructive pulmonary disease, unspecified Status: Acute Assessment and Plan: -continue home meds (5) HTN (hypertension): Qualifiers: Hypertension type: primary hypertension Qualified Code(s): I10 - Essential (primary) hypertension Code(s): I10 - Essential (primary) hypertension Status: Acute Assessment and Plan: -continue with irbesartan -hold metolazone at this time due to low potassium -continue with spironolactone -Amlodipine discontinue (6) Hypothyroidism: Qualifiers: Hypothyroidism type: acquired Qualified Code(s): E03.9 - Hypothyroidism, unspecified Code(s): E03.9 - Hypothyroidism, unspecified Status: Acute Assessment and Plan: -check thyroid level continue with levothyroxine (7) Leg weakness, bilateral: Code(s): R29.898 - Other symptoms and signs involving the musculoskeletal system Status: Acute Assessment and Plan: -PT and OT evaluation greatly be appreciated. -Chest x-ray was negative. No other signs and symptoms of infection at this time. -check magnesium. -replace potassium as necessary. (8) Obstructive sleep apnea: Code(s): G47.33 - Obstructive sleep apnea (adult) (pediatric) Status: Acute Assessment and Plan: -continue CPAP home settings (9) Depression: Code(s): F32.9 - Major depressive disorder, single episode, unspecified Status: Acute Assessment and Plan: She has a history of depression. I am not sure if she still on any medication. (10) Hypomagnesemia: Code(s): E83.42 - Hypomagnesemia Status: Acute Assessment and Plan: magnesium 1.7 and replaced continue to monitor (11) Hypoxia: Code(s): R09.02 - Hypoxemia Status: Acute Assessment and Plan: -mark
--- NOTE | 2022-09-01 15:58 | PC.NURSE ---
Family members at bedside, RN informed patient/family of pending discharge back to [facility]. Family member stated patient needs to be able to transfer from the bed to the wheelchair and back independently before discharging home. Patient/family stated they did not feel the patient would be safe if she discharged today to assisted living and would like to pursue a SNF referral. RN contacted Senior Manufacturing Supervisor, Daphne and informed her of patient/family member's decision and she stated she would send out referrals.
[2022-09-01] MEDS: DOCUSATE SODIUM 100 MG CAPSULE PO (16:31)
[2022-09-02] VITALS (14 sets, daily range): BP systolic 105–123; BP diastolic 41–60; PULSE 80–104; RESP 16–20; TEMP 36.4–36.8; O2SAT 85–97
[2022-09-02] MEDS: DOCUSATE SODIUM 100 MG CAPSULE PO ×2 (01:01→12:34)
[2022-09-02] MEDS: ALBUTEROL SULFATE NEB 2.5 MG/3 ML INH INHALATION ×3 (02:13→20:23)
[2022-09-02] MEDS: IPRATROPIUM BR 0.02% INH SOLN 0.5 MG/2.5 ML VIAL INHALATION ×3 (02:13→20:23)
[2022-09-02] MEDS: LEVOTHYROXINE SODIUM 75 MCG TABLET PO (05:49)
[2022-09-02 07:24] LABS: Basophils Absolute Auto 0.1 K/mm3 (0.0-0.1); Basophils Percent Auto 0.3 % (0.2-1.2); Hematocrit 31.8 % (37.0-47.0); Hemoglobin 10.3 g/dL (12.0-15.0); Immature Granulocyte Percent A 2.2 % (0-0.5); Lymphocytes Absolute Auto 1.05 K/mm3 (0.9-3.2); Lymphocytes Percent Auto 4.6 % (18.3-44.2); Mean Corpuscular HGB Conc 32.4 g/dl (32-36); Mean Corpuscular Hemoglobin 28.7 pg (26-34); Mean Corpuscular Volume 88.6 fl (80-100); Mean Platelet Volume 9.1 fl (7.4-10.4); Monocytes Absolute Auto 2.8 K/mm3 (0.1-0.6); Neutrophils Absolute Auto 18.6 K/mm3 (1.3-6.7); Neutrophils Percent Auto 80.9 % (45.5-73.1); Platelet Count Result 424 k/mm3 (150-375); Red Blood Count 3.59 M/mm3 (4.2-5.4); Red Cell Distribution Width 14.2 % (11.5-14.5)
[2022-09-02 07:26] LABS: Anion Gap 8 mmol/L (8-16); Blood Urea Nitrogen 41 mg/dL (7-17); Calcium 8.7 mg/dL (8.4-10.2); Carbon Dioxide 34 mmol/L (22-30); Chloride 93 mmol/L (98-107); Estimated CRCL calculation 27 ml/min; Estimated Glomerular Filt Rate 28; Glucose 155 mg/dL (65-110); Potassium 3.2 mmol/L (3.4-5.0); Sodium 135 mmol/L (137-145)
[2022-09-02 08:21] LABS: Platelet Estimate Increased (Adequate)
[2022-09-02 08:22] LABS: Hypochromasia 3+ (NORMAL); Ovalocytes 1+ (NORMAL); Schistocytes None Seen (NORMAL)
--- NOTE | 2022-09-02 08:53 | PM.IMPN ---
Progress Note: A&P Assessment and Plan (1) Acute hypokalemia: Code(s): E87.6 - Hypokalemia Status: Acute Assessment and Plan: Patient originally came to the ER due to falling on her knees and was found to have hypokalemia -potassium replaced as necessary. -EKG was read as sinus rhythm no previous EKG available for comparison. -patient started back on her home potassium supplement of 20 mg twice a day -since starting home potassium potassium has increased slowly. -continue with at home potassium supplement. -started 2 mg Bumex back to day and will recheck potassium in 6 hours after initiating Bumex. -replete potassium as needed -goal to get patient's potassium stable and calculated how much potassium patient will need going home. -08/31/22 patient started back on 2 mg Bumex once a day. Patient's kidneys responded well to Bumex. Potassium on hold due to patient's potassium being 3.7 today. Will reassess tomorrow on how much potassium needs to be replaced on 2 mg Bumex. Depending on the amount of potassium needing be replaced patient can be discharged with that regimen of PO potassium daily. Discussed with attending physician and Dr. Sy and they are both in agreement with this plan. -potassium normalized after restarting Bumex at 2 mg once a day -advised potassium follow-up within a week after discharge (2) Leukocytosis: Code(s): D72.829 - Elevated white blood cell count, unspecified Status: Acute Assessment and Plan: 09/02/2022 Since arrival to hospital patient has had white blood cell count between 17 and 14. Patient has not had any signs of infection during her stay. This morning patient's white blood cell count is 23. Repeat chest x-ray 09/02 MRSA swab Pro count ordered Lactic acid ordered UA ordered (3) Hypoxia: Code(s): R09.02 - Hypoxemia Status: Acute Assessment and Plan: -patient oxygen dropped in the 80s overnight and patient was put on 2 L of oxygen. -patient not normally on oxygen at home -patient does have history of COPD and uses inhalers as needed -repeat chest x-ray ordered and revealed clear lungs -will order nebulizer treatments. 08/31 -patient weaned off of O2 and back on room air. (4) Anxiety: Code(s): F41.9 - Anxiety disorder, unspecified Status: Acute Assessment and Plan: -continue home medications of Xanax (5) Chronic kidney disease, stage 3: Qualifiers: Chronic kidney disease stage 3 subtype: stage 3a (GFR 45-59) Qualified Code(s): N18.31 - Chronic kidney disease, stage 3a Code(s): N18.3 - Chronic kidney disease, stage 3 (moderate) Status: Acute Assessment and Plan: Avoid any nephrotoxic medication The patient sees Dr. Gutierrez outpatient. Her baseline is anywhere from 1.4 to 2.10. (6) COPD (chronic obstructive pulmonary disease): Qualifiers: COPD type: unspecified COPD Qualified Code(s): J44.9 - Chronic obstructive pulmonary disease, unspecified Code(s): J44.9 - Chronic obstructive pulmonary disease, unspecified Status: Acute Assessment and Plan: -continue home meds (7) HTN (hypertension): Qualifiers: Hypertension type: primary hypertension Qualified Code(s): I10 - Essential (primary) hypertension Code(s): I10 - Essential (primary) hypertension Status: Acute Assessment and Plan: -continue with irbesartan -hold metolazone at this time due to low potassium -continue with spironolactone -Amlodipine discontinue (8) Hypothyroidism: Qualifiers: Hypothyroidism type: acquired Qualified Code(s): E03.9 - Hypothyroidism, unspecified Code(s): E03.9 - Hypothyroidism, unspecified Status: Acute Assessment and Plan: -check thyroid level continue with levothyroxine (9) Leg weakness, bilateral: Code(s): R29.898 - Other symptoms and signs involving the musculoskeletal system Status
[2022-09-02] MEDS: POTASSIUM CHLORIDE 20 MEQ PACKET (FOR LIQUID) 40 MEQ PO (09:36)
[2022-09-02] MEDS: polyethylene glycoL 3350 17 GM POWD.PACK PO (09:37)
[2022-09-02] MEDS: BUMETANIDE 1 MG TABLET 2 MG PO (09:38)
[2022-09-02] MEDS: LIDOCAINE 5% PATCH 1 PATCH TRANSDERM ×2 (09:38→14:44)
[2022-09-02] MEDS: MONTELUKAST SODIUM 10 MG TABLET PO (09:38)
[2022-09-02] MEDS: IRBESARTAN 150 MG TABLET 300 MG PO (09:39)
[2022-09-02] MEDS: CLOPIDOGREL BISULFATE 75 MG TABLET PO (09:39)
[2022-09-02] MEDS: SPIRONOLACTONE 25 MG TABLET PO (09:39)
[2022-09-02 09:42] LABS: Lactic Acid Reflex 1.4 mmol/L (0.7-2.0)
[2022-09-02] MEDS: HYDROcodone/acetaminophen (*CRX) 7.5-325 MG TABLET 1 TAB PO ×3 (09:47→21:09)
[2022-09-02] MEDS: ALPRAZolam (*CRX) 0.5 MG TABLET PO ×2 (10:09→21:10)
[2022-09-02 10:12] LABS: Procalcitonin 0.9 ng/mL
[2022-09-02] MEDS: AZTREONAM 2 GM in SODIUM CHLORIDE 0.9% IV 100 ML 200 ML IVPB (11:48)
--- NOTE | 2022-09-02 14:39 | PM.PNNEP ---
Progress Note: A&P Assessment and Plan (1) Acute hypokalemia: Code(s): E87.6 - Hypokalemia Status: Acute Assessment and Plan: potassium is low again. Her creatinine is higher. I think she does not need the loop diuretic at all. I will stop the Bumex and continue spironolactone. I do not think she even needs the potassium supplement once her potassium level is okay. (2) Generalized edema: Code(s): R60.1 - Generalized edema Status: Acute Assessment and Plan: The patient has swelling. it is much improved since off the amlodipine. she has multiple possible causes of this. She is on amlodipine. Will discontinue this. She has reversible airways disease. echo done as an outpatient shows no right sided elevated pressors. She has cirrhosis. She has diastolic dysfunction. Discussed with patient. at this point will leave her off of the loop diuretics. She might need a small dose down the line but for now it is leave her off these, letter creatinine come down, and then she can go home. (3) Stage 3b chronic kidney disease (CKD): Code(s): N18.32 - Chronic kidney disease, stage 3b Status: Acute Assessment and Plan: The patient has chronic kidney disease. Her baseline creatinine is 1.4. Her creatinine is up to 1.7 today. Bumex was discontinued. (4) Hyponatremia: Code(s): E87.1 - Hypo-osmolality and hyponatremia Status: Acute Assessment and Plan: The sodium is low. This is probably due to diuretics. Sodium is up to 135. (5) Metabolic alkalosis: Code(s): E87.3 - Alkalosis Status: Acute Assessment and Plan: The bicarbonate is high. This is also probably due to diuretics. (6) Leukocytosis: Code(s): D72.829 - Elevated white blood cell count, unspecified Status: Acute Assessment and Plan: it is unclear why she has leukocytosis. Urine and blood cultures are negative so far. She is on some antibiotics. Subjective Date/time seen: 09/02/22 14:39 Interval history: Patient is not short of breath today. Swelling is at a minimum. She is constipated. Exam Narrative: WDWN in NAD skin no rash head ncat Lungs clear to auscultation cor reg no rub abd BS+ nontender and soft ext trace edema. Objective Data Vital Signs Vital Signs: Vital Signs - 24 hr 09/01/22 16:00 09/01/22 20:46 09/01/22 21:30 Temperature 99.4 F Pulse Rate 100 113 H 111 H Respiratory Rate 20 22 H Blood Pressure 141/67 H Pulse Oximetry 91 Oxygen Delivery 09/01/22 20:00 09/02/22 02:13 09/02/22 00:00 Temperature Pulse Rate 101 H 98 101 H Respiratory Rate 20 Blood Pressure Pulse Oximetry Oxygen Delivery 09/02/22 04:00 09/02/22 06:00 09/02/22 08:27 Temperature 98.2 F Pulse Rate 102 H 104 H 91 Respiratory Rate 18 18 Blood Pressure 109/41 L Pulse Oximetry 85 L Oxygen Delivery 09/02/22 08:40 09/02/22 08:00 09/02/22 09:40 Temperature Pulse Rate 80 Respiratory Rate Blood Pressure Pulse Oximetry 94 Oxygen Delivery Room Air Room Air Intake/Output Intake/Output: Intake & Output 08/30/22 08/31/22 09/01/22 09/02/22 23:59 23:59 23:59 23:59 Intake Total 1920 3726 527 4494 Output Total 2300 800 900 Balance -380 720 -340 1215 Meds/Results Medications: Active Medications Generic Name Dose Route Start Last Admin Trade Name Freq PRN Reason Stop Dose Admin Acetaminophen 650 mg 08/27/22 10:32 Acetaminophen 325 Mg Tablet PO Q4H PRN Mild Pain (1-3) or Fever Hydrocodone Bitart/Acetaminophen 1 tab 08/27/22 21:49 09/02/22 09:47 Hydrocodone/Acetaminophen (*Crx) 7.5-325 Mg Tablet PO 1 tab Q4H PRN Administration Pain Rated >5 Albuterol 2.5 mg 08/30/22 14:00 09/02/22 08:31 Albuterol Sulfate Neb 2.5 Mg/3 Ml Inh INHALATION 2.5 mg Q6HRT KAVITHA Administration Alpraz
[2022-09-02 17:23] LABS: Add Urine Microscopic? YES; Appearance Urine Slightly Cloudy (Clear); Bilirubin Urine Negative (Negative); Blood Urine Trace-Intact (Negative); Color Urine Light Yellow (Yellow); Glucose Urine UA Negative (Negative); Ketones Urine Negative (Negative); Leukocyte Esterase Ur 2+ LEU/UL (Negative); Nitrate Urine Negative (Negative); Protein Urine Negative (Negative); Urobilinogen Urine 0.2 mg/dL (<2.0); pH Urine 6.5 (5.0-9.0)
[2022-09-02 17:32] LABS: Amorphous Sediment Urine Few; Bacteria Urine Trace /hpf; Mucus Urine Rare /lpf; Squamous Epithelial Cell Urine Moderate /hpf (Few); WBC Urine 21-30 /hpf
[2022-09-02] MEDS: AZTREONAM 1 GM in DEXTROSE 5% IN WATER 50 ML 100 ML IVPB (20:20)
--- NOTE | 2022-09-02 20:28 | PCRCNOTE ---
pt stated she is done with all of this and just wants to .
[2022-09-03] VITALS (11 sets, daily range): BP systolic 99–140; BP diastolic 48–61; PULSE 85–96; RESP 14–20; TEMP 36.3–37.4; O2SAT 92–96
[2022-09-03] MEDS: AZTREONAM 1 GM in DEXTROSE 5% IN WATER 50 ML 100 ML IVPB ×3 (04:09→19:39)
[2022-09-03] MEDS: ALPRAZolam (*CRX) 0.5 MG TABLET PO ×3 (04:09→19:39)
[2022-09-03] MEDS: LEVOTHYROXINE SODIUM 75 MCG TABLET PO (05:35)
[2022-09-03 07:27] LABS: Basophils Absolute Auto 0.1 K/mm3 (0.0-0.1); Basophils Percent Auto 0.5 % (0.2-1.2); Eosinophils Absolute Auto 0.6 K/mm3 (0-0.3); Eosinophils Percent Auto 3.1 % (0-4.4); Hematocrit 30.6 % (37.0-47.0); Hemoglobin 9.9 g/dL (12.0-15.0); Immature Granulocyte Absolute 0.78 K/mm3 (0.00-0.031); Immature Granulocyte Percent A 4.3 % (0-0.5); Lymphocytes Absolute Auto 1.09 K/mm3 (0.9-3.2); Lymphocytes Percent Auto 5.9 % (18.3-44.2); Mean Corpuscular HGB Conc 32.4 g/dl (32-36); Mean Corpuscular Hemoglobin 28.3 pg (26-34); Mean Corpuscular Volume 87.4 fl (80-100); Mean Platelet Volume 9.1 fl (7.4-10.4); Monocytes Absolute Auto 1.7 K/mm3 (0.1-0.6); Monocytes Percent Auto 9.5 % (2.6-8.5); Neutrophils Absolute Auto 14.1 K/mm3 (1.3-6.7); Neutrophils Percent Auto 76.7 % (45.5-73.1); Platelet Count Result 412 k/mm3 (150-375); Red Cell Distribution Width 14.3 % (11.5-14.5); White Blood Count 18.3 K/mm3 (4.5-10.0)
[2022-09-03 07:40] LABS: Anion Gap 7 mmol/L (8-16); Blood Urea Nitrogen 52 mg/dL (7-17); Calcium 8.2 mg/dL (8.4-10.2); Carbon Dioxide 32 mmol/L (22-30); Chloride 86 mmol/L (98-107); Estimated CRCL calculation 20 ml/min; Estimated Glomerular Filt Rate 20; Glucose 124 mg/dL (65-110); Phosphorus 4.2 mg/dL (2.5-4.5); Potassium 3.5 mmol/L (3.4-5.0); Sodium 125 mmol/L (137-145)
[2022-09-03] MEDS: MONTELUKAST SODIUM 10 MG TABLET PO (08:06)
[2022-09-03] MEDS: polyethylene glycoL 3350 17 GM POWD.PACK PO (08:07)
[2022-09-03] MEDS: SPIRONOLACTONE 25 MG TABLET PO (08:07)
[2022-09-03] MEDS: DOCUSATE SODIUM 100 MG CAPSULE PO ×2 (08:07→19:40)
[2022-09-03] MEDS: CLOPIDOGREL BISULFATE 75 MG TABLET PO (08:07)
[2022-09-03] MEDS: IRBESARTAN 150 MG TABLET PO (08:07)
[2022-09-03] MEDS: LIDOCAINE 5% PATCH 1 PATCH TRANSDERM ×2 (08:07)
--- NOTE | 2022-09-03 08:43 | PM.IMPN ---
Progress Note: A&P Assessment and Plan (1) Acute hypokalemia: Code(s): E87.6 - Hypokalemia Status: Acute Assessment and Plan: Patient originally came to the ER due to falling on her knees and was found to have hypokalemia -potassium replaced as necessary. -EKG was read as sinus rhythm no previous EKG available for comparison. -patient started back on her home potassium supplement of 20 mg twice a day -since starting home potassium potassium has increased slowly. -continue with at home potassium supplement. -started 2 mg Bumex back to day and will recheck potassium in 6 hours after initiating Bumex. -replete potassium as needed -goal to get patient's potassium stable and calculated how much potassium patient will need going home. -08/31/22 patient started back on 2 mg Bumex once a day. Patient's kidneys responded well to Bumex. Potassium on hold due to patient's potassium being 3.7 today. Will reassess tomorrow on how much potassium needs to be replaced on 2 mg Bumex. Depending on the amount of potassium needing be replaced patient can be discharged with that regimen of PO potassium daily. Discussed with attending physician and Dr. yS and they are both in agreement with this plan. -09/01/22 potassium normalized after restarting Bumex at 2 mg once a day -09/03/22 Bumex discontinued due to elevated creatinine in, continue spironolactone. Nephrology managing patient. (2) Leukocytosis: Code(s): D72.829 - Elevated white blood cell count, unspecified Status: Acute Assessment and Plan: 09/02/2022 Since arrival to hospital patient has had white blood cell count between 17 and 14. Patient has not had any signs of infection during her stay. This morning patient's white blood cell count is 23. Repeat chest x-ray 09/02 no acute cardiopulmonary process MRSA swab pending Procalcitonin normal Lactic acid normal Blood cultures pending UA the possible UTI, culture pending, continue IV antibiotics in tailor therapy to culture. (3) Hypoxia: Code(s): R09.02 - Hypoxemia Status: Acute Assessment and Plan: -patient oxygen dropped in the 80s overnight and patient was put on 2 L of oxygen. -patient not normally on oxygen at home -patient does have history of COPD and uses inhalers as needed -repeat chest x-ray ordered and revealed clear lungs -will order nebulizer treatments. 08/31 -patient weaned off of O2 and back on room air. (4) Anxiety: Code(s): F41.9 - Anxiety disorder, unspecified Status: Acute Assessment and Plan: -continue home medications of Xanax (5) Chronic kidney disease, stage 3: Qualifiers: Chronic kidney disease stage 3 subtype: stage 3a (GFR 45-59) Qualified Code(s): N18.31 - Chronic kidney disease, stage 3a Code(s): N18.3 - Chronic kidney disease, stage 3 (moderate) Status: Acute Assessment and Plan: Avoid any nephrotoxic medication The patient sees Dr. Gutierrez outpatient. Her baseline is anywhere from 1.4 to 2.10. (6) COPD (chronic obstructive pulmonary disease): Qualifiers: COPD type: unspecified COPD Qualified Code(s): J44.9 - Chronic obstructive pulmonary disease, unspecified Code(s): J44.9 - Chronic obstructive pulmonary disease, unspecified Status: Acute Assessment and Plan: -continue home meds (7) HTN (hypertension): Qualifiers: Hypertension type: primary hypertension Qualified Code(s): I10 - Essential (primary) hypertension Code(s): I10 - Essential (primary) hypertension Status: Acute Assessment and Plan: -continue with irbesartan -hold metolazone at this time due to low potassium -continue with spironolactone -Amlodipine discontinue (8) Hypothyroidism: Qualifiers: Hypothyroidism type: acquired Qualified Code(s): E03.9 - Hypothyroidism, unspecified Code(s): E03.9 - Hypothyroidism, unspecified Status: Acut
[2022-09-03] MEDS: HYDROcodone/acetaminophen (*CRX) 7.5-325 MG TABLET 1 TAB PO ×2 (11:47→22:45)
[2022-09-03] MEDS: IPRATROPIUM BR 0.02% INH SOLN 0.5 MG/2.5 ML VIAL INHALATION (14:22)
[2022-09-03] MEDS: ALBUTEROL SULFATE NEB 2.5 MG/3 ML INH INHALATION (14:22)
--- NOTE | 2022-09-03 21:42 | PM.PNNEP ---
Progress Note: A&P Assessment and Plan (1) Acute hypokalemia: Code(s): E87.6 - Hypokalemia Status: Acute Assessment and Plan: potassium is low again. Her creatinine is higher again. this could be from the diuretics (she had received a dose yesterday am before the order was written to stop it). she has a high wbc and hospitalist is investigating infection as well. continue to hold the loop diuretic. (2) Generalized edema: Code(s): R60.1 - Generalized edema Status: Acute Assessment and Plan: The patient has swelling. it is much improved since off the amlodipine. she has multiple possible causes of this. She is on amlodipine. Will discontinue this. She has reversible airways disease. echo done as an outpatient shows no right sided elevated pressors. She has cirrhosis. She has diastolic dysfunction. improved. (3) Stage 3b chronic kidney disease (CKD): Code(s): N18.32 - Chronic kidney disease, stage 3b Status: Acute Assessment and Plan: The patient has chronic kidney disease. Her baseline creatinine is 1.4. Her creatinine is up to 1.7 today. Bumex was discontinued. (4) Hyponatremia: Code(s): E87.1 - Hypo-osmolality and hyponatremia Status: Acute Assessment and Plan: The sodium is low. This is probably due to diuretics. Sodium is back down to 125. she is drinking a lot of water. will fluid restrict. (5) Metabolic alkalosis: Code(s): E87.3 - Alkalosis Status: Acute Assessment and Plan: The bicarbonate is high. This is also probably due to diuretics. (6) Leukocytosis: Code(s): D72.829 - Elevated white blood cell count, unspecified Status: Acute Assessment and Plan: it is unclear why she has leukocytosis. Urine and blood cultures are negative so far. She is on some antibiotics. Subjective Date/time seen: 09/03/22 10:20 Interval history: Patient is not short of breath today. Swelling is at a minimum. She is ukp in a chair. Exam Narrative: WDWN in NAD skin no rash or sq nodules head ncat Lungs clear to auscultation cor reg no rub or gallop abd BS+ nontender and soft ext trace edema. Objective Data Vital Signs Vital Signs: Vital Signs - 24 hr 09/03/22 00:00 09/03/22 04:00 09/03/22 08:16 Temperature 97.9 F Pulse Rate 85 96 95 Respiratory Rate 16 Blood Pressure 140/61 Pulse Oximetry 92 Oxygen Delivery 09/03/22 08:00 09/03/22 08:00 09/03/22 12:00 Temperature Pulse Rate 90 96 Respiratory Rate Blood Pressure Pulse Oximetry Oxygen Delivery Room Air 09/03/22 14:00 09/03/22 14:26 09/03/22 14:42 Temperature 97.4 F L Pulse Rate 90 96 92 Respiratory Rate 20 20 20 Blood Pressure 99/48 L Pulse Oximetry 93 Oxygen Delivery 09/03/22 16:00 Temperature Pulse Rate 90 Respiratory Rate Blood Pressure Pulse Oximetry Oxygen Delivery Intake/Output Intake/Output: Intake & Output 08/31/22 09/01/22 09/02/22 09/03/22 23:59 23:59 23:59 23:59 Intake Total 6408 538 7214 1360 Output Total 800 900 150 500 Balance 720 -340 2085 860 Meds/Results Medications: Active Medications Generic Name Dose Route Start Last Admin Trade Name Freq PRN Reason Stop Dose Admin Acetaminophen 650 mg 08/27/22 10:32 Acetaminophen 325 Mg Tablet PO Q4H PRN Mild Pain (1-3) or Fever Hydrocodone Bitart/Acetaminophen 1 tab 08/27/22 21:49 09/03/22 11:47 Hydrocodone/Acetaminophen (*Crx) 7.5-325 Mg Tablet PO 1 tab Q4H PRN Administration Pain Rated >5 Albuterol 2.5 mg 08/30/22 14:00 09/03/22 14:22 Albuterol Sulfate Neb 2.5 Mg/3 Ml Inh INHALATION 2.5 mg Q6HRT KAVITHA Administration Alprazolam 0.5 mg 08/31/22 20:54 09/03/22 19:39 Alprazolam (*Crx) 0.5 Mg Tablet PO 0.5 mg QID PRN Administration Anxiety Clopidogrel Bisulfate 75 mg
[2022-09-04] VITALS (18 sets, daily range): BP systolic 116–145; BP diastolic 52–65; PULSE 58–98; RESP 14–18; TEMP 36.2–36.6; O2SAT 91–96
--- NOTE | 2022-09-04 00:52 | PCRCNOTE ---
Window of time for administration has passed. See next scheduled administration.
[2022-09-04] MEDS: ALPRAZolam (*CRX) 0.5 MG TABLET PO ×3 (01:21→20:41)
[2022-09-04] MEDS: ALBUTEROL SULFATE NEB 2.5 MG/3 ML INH INHALATION ×3 (02:30→15:04)
[2022-09-04] MEDS: IPRATROPIUM BR 0.02% INH SOLN 0.5 MG/2.5 ML VIAL INHALATION ×3 (02:30→15:04)
[2022-09-04] MEDS: AZTREONAM 1 GM in DEXTROSE 5% IN WATER 50 ML 100 ML IVPB (03:36)
[2022-09-04] MEDS: LEVOTHYROXINE SODIUM 75 MCG TABLET PO (06:10)
[2022-09-04 06:39] LABS: Basophils Percent Auto 0.3 % (0.2-1.2); Eosinophils Percent Auto 7.6 % (0-4.4); Hematocrit 30.3 % (37.0-47.0); Hemoglobin 10.1 g/dL (12.0-15.0); Immature Granulocyte Absolute 0.77 K/mm3 (0.00-0.031); Lymphocytes Absolute Auto 1.52 K/mm3 (0.9-3.2); Lymphocytes Percent Auto 11.9 % (18.3-44.2); Mean Corpuscular HGB Conc 33.3 g/dl (32-36); Mean Corpuscular Hemoglobin 28.4 pg (26-34); Mean Corpuscular Volume 85.1 fl (80-100); Mean Platelet Volume 8.9 fl (7.4-10.4); Monocytes Absolute Auto 1.3 K/mm3 (0.1-0.6); Monocytes Percent Auto 9.8 % (2.6-8.5); Neutrophils Absolute Auto 8.3 K/mm3 (1.3-6.7); Neutrophils Percent Auto 64.4 % (45.5-73.1); Platelet Count Result 460 k/mm3 (150-375); Red Blood Count 3.56 M/mm3 (4.2-5.4); Red Cell Distribution Width 13.8 % (11.5-14.5); White Blood Count 12.8 K/mm3 (4.5-10.0)
[2022-09-04 06:45] LABS: Alanine Aminotransferase 20 U/L (6-35); Albumin Level 3.4 g/dL (3.5-5.1); Alkaline Phosphatase 109 U/L (38-126); Anion Gap 9 mmol/L (8-16); Aspartate Amino Transferase 24 U/L (14-36); Bilirubin,Total 0.6 mg/dL (0.2-1.3); Blood Urea Nitrogen 60 mg/dL (7-17); Calcium 8.4 mg/dL (8.4-10.2); Carbon Dioxide 30 mmol/L (22-30); Chloride 90 mmol/L (98-107); Estimated CRCL calculation 23 ml/min; Estimated Glomerular Filt Rate 24; Glucose 112 mg/dL (65-110); Phosphorus 4.7 mg/dL (2.5-4.5); Potassium 3.2 mmol/L (3.4-5.0); Sodium 129 mmol/L (137-145)
[2022-09-04] MEDS: SPIRONOLACTONE 25 MG TABLET PO (09:07)
[2022-09-04] MEDS: DOCUSATE SODIUM 100 MG CAPSULE PO ×2 (09:07→20:37)
[2022-09-04] MEDS: polyethylene glycoL 3350 17 GM POWD.PACK PO (09:07)
[2022-09-04] MEDS: CLOPIDOGREL BISULFATE 75 MG TABLET PO (09:07)
[2022-09-04] MEDS: MONTELUKAST SODIUM 10 MG TABLET PO (09:07)
[2022-09-04] MEDS: LIDOCAINE 5% PATCH 1 PATCH TRANSDERM ×2 (09:10→09:12)
[2022-09-04] MEDS: IRBESARTAN 150 MG TABLET PO (09:13)
--- NOTE | 2022-09-04 10:59 | PCNWS ---
Weekly nutritional screen. Patient is tolerating current Regular diet with adequate intake 75-100%. No weight loss reported. No nutritional needs at this time.
[2022-09-04] MEDS: HYDROcodone/acetaminophen (*CRX) 7.5-325 MG TABLET 1 TAB PO ×2 (12:52→20:41)
--- NOTE | 2022-09-04 13:05 | P.PNNP_ITS ---
Progress Note: A&P Assessment and Plan (1) Acute hypokalemia: Code(s): E87.6 - Hypokalemia Status: Acute Assessment and Plan: * potassium a bit low this AM but creatinine a bit better * holding loop diuretics * continue spironolactone * follow trend of K+ * check magnesium (2) Generalized edema: Code(s): R60.1 - Generalized edema Status: Acute Assessment and Plan: * resolving (if not resolved) * off amlodipine * likely secondarty to liver cirrhosis and diastolic dysfunction (3) Stage 3b chronic kidney disease (CKD): Code(s): N18.32 - Chronic kidney disease, stage 3b Status: Acute Assessment and Plan: * creatinine has fluctuated to extremes in the past mostly due to adjustments in diuretic therapy * seems to average out to 1.4 - 2.1mg/dl * follow trend (4) Hyponatremia: Code(s): E87.1 - Hypo-osmolality and hyponatremia Status: Acute Assessment and Plan: * probably from diuretics and increased free water intake * doing better at this time * remains off loop diuretics * on fluid restriction (which she is not happy about * sodium improving.... Will continue to follow. Subjective Date/time seen: 09/04/22 13:05 Chart reviewed -- assuming care from Dr. Sy; swelling appears to be gone per patient with recent medication adjustments during this hospitalization; hoping to go to rehab soon; no other issues/events overnight. Exam Narrative: General: WD/WN female in NAD Heart: normal S1 and S2; no rub Lungs: clear to auscultation Abdomen: soft, nontender, nondistended, positive bowel sounds Extremities: no cyanosis or clubbing; trace edema Skin: warm and dry Objective Data Vital Signs Vital Signs: Vital Signs Temp Pulse Resp BP Pulse Ox O2 Del Method 09/04/22 12:00 98 09/04/22 15:14 87 18 09/04/22 15:04 86 18 09/04/22 14:00 97.8 F 87 16 116/65 92 09/04/22 08:00 83 09/04/22 09:30 91 Room Air 09/04/22 10:19 91 Room Air 09/04/22 09:49 88 18 09/04/22 09:37 90 18 09/04/22 06:00 97.8 F 58 L 14 145/62 H 96 09/04/22 04:00 72 09/04/22 03:50 92 Room Air 09/04/22 02:45 85 18 09/04/22 02:30 87 18 09/04/22 00:00 79 09/03/22 20:00 95 09/03/22 21:44 99.4 F 88 14 109/52 L 96 Intake/Output Intake/Output: Intake & Output 09/01/22 09/02/22 09/03/22 09/04/22 23:59 23:59 23:59 23:59 Intake Total 560 2235 1410 1490 Output Total 900 560 587 6533 Balance -340 2085 910 -610 Meds/Results Medications: Active Medications Generic Name Dose Route Start Last Admin Trade Name Freq PRN Reason Stop Dose Admin Acetaminophen 650 mg 08/27/22 10:32 Acetaminophen 325 Mg Tablet PO Q4H PRN Mild Pain (1-3) or Fever Hydrocodone Bitart/Acetaminophen 1 tab 08/27/22 21:49 09/04/22 12:52 Hydrocodone/Acetaminophen (*Crx) 7.5-325 Mg Tablet PO 1 tab Q4H PRN Administration Pain Rated >5 Albuterol 2.5 mg 08/30/22 14:00 09/04/22 15:04
--- NOTE | 2022-09-04 13:05 | PM.PNNEP ---
Progress Note: A&P Assessment and Plan (1) Acute hypokalemia: Code(s): E87.6 - Hypokalemia Status: Acute Assessment and Plan: potassium a bit low this AM but creatinine a bit better holding loop diuretics continue spironolactone follow trend of K+ check magnesium (2) Generalized edema: Code(s): R60.1 - Generalized edema Status: Acute Assessment and Plan: resolving (if not resolved) off amlodipine likely secondarty to liver cirrhosis and diastolic dysfunction (3) Stage 3b chronic kidney disease (CKD): Code(s): N18.32 - Chronic kidney disease, stage 3b Status: Acute Assessment and Plan: creatinine has fluctuated to extremes in the past mostly due to adjustments in diuretic therapy seems to average out to 1.4 - 2.1mg/dl follow trend (4) Hyponatremia: Code(s): E87.1 - Hypo-osmolality and hyponatremia Status: Acute Assessment and Plan: probably from diuretics and increased free water intake doing better at this time remains off loop diuretics on fluid restriction (which she is not happy about sodium improving.... Will continue to follow. Subjective Date/time seen: 09/04/22 13:05 Chart reviewed -- assuming care from Dr. Sy; swelling appears to be gone per patient with recent medication adjustments during this hospitalization; hoping to go to rehab soon; no other issues/events overnight. Exam Narrative: General: WD/WN female in NAD Heart: normal S1 and S2; no rub Lungs: clear to auscultation Abdomen: soft, nontender, nondistended, positive bowel sounds Extremities: no cyanosis or clubbing; trace edema Skin: warm and dry Objective Data Vital Signs Vital Signs: Vital Signs Temp Pulse Resp BP Pulse Ox O2 Del Method 09/04/22 12:00 98 09/04/22 15:14 87 18 09/04/22 15:04 86 18 09/04/22 14:00 97.8 F 87 16 116/65 92 09/04/22 08:00 83 09/04/22 09:30 91 Room Air 09/04/22 10:19 91 Room Air 09/04/22 09:49 88 18 09/04/22 09:37 90 18 09/04/22 06:00 97.8 F 58 L 14 145/62 H 96 09/04/22 04:00 72 09/04/22 03:50 92 Room Air 09/04/22 02:45 85 18 09/04/22 02:30 87 18 09/04/22 00:00 79 09/03/22 20:00 95 09/03/22 21:44 99.4 F 88 14 109/52 L 96 Intake/Output Intake/Output: Intake & Output 09/01/22 09/02/22 09/03/22 09/04/22 23:59 23:59 23:59 23:59 Intake Total 560 2235 1410 1490 Output Total 900 623 388 5551 Balance -340 2085 910 -610 Meds/Results Medications: Active Medications Generic Name Dose Route Start Last Admin Trade Name Freq PRN Reason Stop Dose Admin Acetaminophen 650 mg 08/27/22 10:32 Acetaminophen 325 Mg Tablet PO Q4H PRN Mild Pain (1-3) or Fever Hydrocodone Bitart/Acetaminophen 1 tab 08/27/22 21:49 09/04/22 12:52 Hydrocodone/Acetaminophen (*Crx) 7.5-325 Mg Tablet PO 1 tab Q4H PRN Administration Pain Rated >5 Albuterol 2.5 mg 08/30/22 14:00 09/04/22 15:04 Albuterol Sulfate Neb 2.5 Mg/3 Ml Inh INHALATION 2.5 mg Q6HRT KAVITHA Administration Alprazolam 0.5 mg 08/31/22 20:54 09/04/22 12:52 Alprazolam (*Crx) 0.5 Mg Tablet PO 0.5 mg QID PRN Administration Anxiety Clopidogrel Bisulfate 75 mg 08/28/22 09:00 09/04/22 09:07 Clopidogrel Bisulfate 75 Mg Tablet PO 75 mg DAILY KAVITHA Administration Docusate Sodium 100 mg 09/03/22 09:00 09/04/22 09:07 Docusate Sodium 100 Mg Capsule PO 100 mg Q12HR KAVITHA Administration Ipratropium [place] 0.5 mg 08/29/22 20:00 09/04/22 15:04 Ipratropium Br 0.02% Inh Soln 0.5 Mg/2.5 Ml Vial INHALATION 0.5 mg Q6HRT KAVITHA Administration Irbesartan 150 mg 09/03/22 09:00 09/04/22 09:13 Irbesartan 150 Mg Tablet PO 150 mg DAILY KAVITHA Administration Levothyroxine Sodium 75 mcg 08/28/22 06:30 09/04/22 06:10 Levothyroxine Sodium 75 Mcg Tablet
--- NOTE | 2022-09-04 13:12 | PM.IMPN ---
Progress Note: A&P Assessment and Plan (1) Acute hypokalemia: Code(s): E87.6 - Hypokalemia Status: Acute Assessment and Plan: Patient originally came to the ER due to falling on her knees and was found to have hypokalemia -potassium replaced as necessary. -EKG was read as sinus rhythm no previous EKG available for comparison. -patient started back on her home potassium supplement of 20 mg twice a day -since starting home potassium potassium has increased slowly. -continue with at home potassium supplement. -started 2 mg Bumex back to day and will recheck potassium in 6 hours after initiating Bumex. -replete potassium as needed -goal to get patient's potassium stable and calculated how much potassium patient will need going home. -08/31/22 patient started back on 2 mg Bumex once a day. Patient's kidneys responded well to Bumex. Potassium on hold due to patient's potassium being 3.7 today. Will reassess tomorrow on how much potassium needs to be replaced on 2 mg Bumex. Depending on the amount of potassium needing be replaced patient can be discharged with that regimen of PO potassium daily. Discussed with attending physician and Dr. Sy and they are both in agreement with this plan. -09/01/22 potassium normalized after restarting Bumex at 2 mg once a day -09/03/22 Bumex discontinued due to elevated creatinine in, continue spironolactone. Nephrology managing patient. 09/04/22 stable. (2) Leukocytosis: Code(s): D72.829 - Elevated white blood cell count, unspecified Status: Acute Assessment and Plan: 09/02/2022 Since arrival to hospital patient has had white blood cell count between 17 and 14. Patient has not had any signs of infection during her stay. This morning patient's white blood cell count is 23. Repeat chest x-ray 09/02 no acute cardiopulmonary process MRSA swab pending Procalcitonin normal Lactic acid normal Blood cultures pending UA the possible UTI, culture pending, continue IV antibiotics in tailor therapy to culture. 09/04 urine culture and blood cultures negative. Afebrile. Stop IV antibiotics. Repeat CBC tomorrow. (3) Hypoxia: Code(s): R09.02 - Hypoxemia Status: Acute Assessment and Plan: -patient oxygen dropped in the 80s overnight and patient was put on 2 L of oxygen. -patient not normally on oxygen at home -patient does have history of COPD and uses inhalers as needed -repeat chest x-ray ordered and revealed clear lungs -will order nebulizer treatments. 08/31 -patient weaned off of O2 and back on room air. 09/04 Stable (4) Anxiety: Code(s): F41.9 - Anxiety disorder, unspecified Status: Chronic Assessment and Plan: -continue home medications of Xanax (5) Chronic kidney disease, stage 3: Qualifiers: Chronic kidney disease stage 3 subtype: stage 3a (GFR 45-59) Qualified Code(s): N18.31 - Chronic kidney disease, stage 3a Code(s): N18.3 - Chronic kidney disease, stage 3 (moderate) Status: Acute Assessment and Plan: Avoid any nephrotoxic medication The patient sees Dr. Gutierrez outpatient. Her baseline is anywhere from 1.4 to 1.7 Nephrology consulted and appreciate recommendations. (6) COPD (chronic obstructive pulmonary disease): Qualifiers: COPD type: unspecified COPD Qualified Code(s): J44.9 - Chronic obstructive pulmonary disease, unspecified Code(s): J44.9 - Chronic obstructive pulmonary disease, unspecified Status: Chronic Assessment and Plan: Chronic, not in acute exacerbation -continue home meds (7) HTN (hypertension): Qualifiers: Hypertension type: primary hypertension Qualified Code(s): I10 - Essential (primary) hypertension Code(s): I10 - Essential (primary) hypertension Status: Acute Assessment and Plan: -continue with irbesartan -hold metolazone at this time due to low potassium -continue with spirono
[2022-09-04] MEDS: POTASSIUM CHLORIDE 20 MEQ TABLET PO (18:50)
[2022-09-05] MEDS: LEVOTHYROXINE SODIUM 75 MCG TABLET PO (05:54)
[2022-09-05 06:00] VITALS: BP 152/58; PULSE 85; RESP 14; TEMP 37; O2SAT 91
[2022-09-05 07:04] LABS: Basophils Percent Auto 0.4 % (0.2-1.2); Eosinophils Absolute Auto 0.7 K/mm3 (0-0.3); Eosinophils Percent Auto 6.4 % (0-4.4); Hematocrit 30.7 % (37.0-47.0); Hemoglobin 10.1 g/dL (12.0-15.0); Immature Granulocyte Absolute 0.83 K/mm3 (0.00-0.031); Immature Granulocyte Percent A 7.3 % (0-0.5); Lymphocytes Absolute Auto 1.34 K/mm3 (0.9-3.2); Lymphocytes Percent Auto 11.8 % (18.3-44.2); Mean Corpuscular HGB Conc 32.9 g/dl (32-36); Mean Corpuscular Hemoglobin 27.9 pg (26-34); Mean Corpuscular Volume 84.8 fl (80-100); Mean Platelet Volume 8.7 fl (7.4-10.4); Monocytes Absolute Auto 1.1 K/mm3 (0.1-0.6); Monocytes Percent Auto 9.3 % (2.6-8.5); Neutrophils Absolute Auto 7.4 K/mm3 (1.3-6.7); Neutrophils Percent Auto 64.8 % (45.5-73.1); Platelet Count Result 520 k/mm3 (150-375); Red Blood Count 3.62 M/mm3 (4.2-5.4); Red Cell Distribution Width 13.7 % (11.5-14.5); White Blood Count 11.4 K/mm3 (4.5-10.0)
[2022-09-05 07:09] LABS: Alanine Aminotransferase 21 U/L (6-35); Albumin Level 3.3 g/dL (3.5-5.1); Alkaline Phosphatase 113 U/L (38-126); Anion Gap 6 mmol/L (8-16); Aspartate Amino Transferase 25 U/L (14-36); Bilirubin,Total 0.4 mg/dL (0.2-1.3); Blood Urea Nitrogen 52 mg/dL (7-17); Calcium 8.5 mg/dL (8.4-10.2); Carbon Dioxide 31 mmol/L (22-30); Chloride 94 mmol/L (98-107); Estimated CRCL calculation 29 ml/min; Estimated Glomerular Filt Rate 31; Glucose 115 mg/dL (65-110); Potassium 3.5 mmol/L (3.4-5.0); Sodium 131 mmol/L (137-145)
[2022-09-05] MEDS: ALPRAZolam (*CRX) 0.5 MG TABLET PO (08:25)
[2022-09-05] MEDS: polyethylene glycoL 3350 17 GM POWD.PACK PO (08:25)
[2022-09-05] MEDS: ACETAMINOPHEN 325 MG TABLET 650 MG PO (08:25)
[2022-09-05] MEDS: MONTELUKAST SODIUM 10 MG TABLET PO (08:27)
[2022-09-05] MEDS: DOCUSATE SODIUM 100 MG CAPSULE PO (08:27)
[2022-09-05] MEDS: SPIRONOLACTONE 25 MG TABLET PO (08:27)
[2022-09-05] MEDS: CLOPIDOGREL BISULFATE 75 MG TABLET PO (08:27)
[2022-09-05] MEDS: IRBESARTAN 150 MG TABLET PO (08:27)
[2022-09-05] MEDS: LIDOCAINE 5% PATCH 1 PATCH TRANSDERM (08:28)
[2022-09-05] MEDS: ALBUTEROL SULFATE NEB 2.5 MG/3 ML INH INHALATION ×2 (08:40→13:37)
[2022-09-05 08:41] VITALS: PULSE 91; RESP 18; O2SAT 95
[2022-09-05] MEDS: IPRATROPIUM BR 0.02% INH SOLN 0.5 MG/2.5 ML VIAL INHALATION ×2 (08:41→13:37)
[2022-09-05 08:55] VITALS: PULSE 92; RESP 18
[2022-09-05] MEDS: POTASSIUM CHLORIDE 20 MEQ TABLET PO (09:58)
--- NOTE | 2022-09-05 11:24 | P.PNNP_ITS ---
Progress Note: A&P Assessment and Plan (1) Acute hypokalemia: Code(s): E87.6 - Hypokalemia Status: Acute Assessment and Plan: * doing better * holding loop diuretics * continue spironolactone * follow trend of K+ * check magnesium intermittently (2) Generalized edema: Code(s): R60.1 - Generalized edema Status: Acute Assessment and Plan: * resolving (if not resolved) * off amlodipine * partly secondary to liver cirrhosis and diastolic dysfunction * continue spironolactone for now given #1 (3) Stage 3b chronic kidney disease (CKD): Code(s): N18.32 - Chronic kidney disease, stage 3b Status: Acute Assessment and Plan: * creatinine has fluctuated to extremes in the past mostly due to adjustments in diuretic therapy * seems to average out to 1.4 - 2.1mg/dl * follow trend (4) Hyponatremia: Code(s): E87.1 - Hypo-osmolality and hyponatremia Status: Acute Assessment and Plan: * probably from diuretics and increased free water intake * doing better at this time * remains off loop diuretics * on fluid restriction (which she is not happy about) * sodium improving.... Not opposed to discharge from renal perspective if she is otherwise medically stable. Will continue to follow. Subjective Date/time seen: 09/05/22 11:24 Swelling/edema in lower extremities remains virtually resolved but she has multiple complaints with regard to diminished physical status, not being seen by PT/OT as of yet, the fluid restriction...etc. She does not appear in any distress on my visit. Exam Narrative: General: WD/WN female in NAD Heart: normal S1 and S2; no rub Lungs: clear to auscultation Abdomen: soft, nontender, nondistended, positive bowel sounds Extremities: no cyanosis or clubbing; trace edema Skin: warm and intact Objective Data Vital Signs Vital Signs: Vital Signs Temp Pulse Resp BP Pulse Ox O2 Del Method 09/05/22 08:35 Room Air 09/05/22 08:55 92 18 09/05/22 08:41 91 18 09/05/22 08:41 95 Room Air 09/05/22 06:00 98.6 F 85 14 152/58 H 91 09/04/22 20:00 85 09/04/22 20:00 Room Air 09/04/22 21:52 97.1 F L 77 14 125/52 L 95 09/04/22 16:00 94 09/04/22 15:14 87 18 09/04/22 15:04 86 18 Intake/Output Intake/Output: Intake & Output 09/02/22 09/03/22 09/04/22 09/05/22 23:59 23:59 23:59 23:59 Intake Total 2235 1410 1730 990 Output Total 160 900 1827 1200 Balance 4787 254 -575 -230 Meds/Results Medications: Active Medications Generic Name Dose Route Start Last Admin Trade Name Freq PRN Reason Stop Dose Admin Acetaminophen 650 mg 08/27/22 10:32 09/05/22 08:25 Acetaminophen 325 Mg Tablet PO 650 mg Q4H PRN Administration Mild Pain (1-3) or Fever Albuterol 2.5 mg 08/30/22 14:00 09/05/22 13:37 Albuterol Sulfate Neb 2.5 Mg/3 Ml Inh INHALATION 2.5 mg Q6HRT KAVITHA Administration Alprazolam 0.5 mg 08/31/22 20:54 09/05/22 08:25 Alprazolam (*Crx) 0.5 Mg Tablet PO 0.5 mg QID PRN Administration A
--- NOTE | 2022-09-05 11:24 | PM.PNNEP ---
Progress Note: A&P Assessment and Plan (1) Acute hypokalemia: Code(s): E87.6 - Hypokalemia Status: Acute Assessment and Plan: doing better holding loop diuretics continue spironolactone follow trend of K+ check magnesium intermittently (2) Generalized edema: Code(s): R60.1 - Generalized edema Status: Acute Assessment and Plan: resolving (if not resolved) off amlodipine partly secondary to liver cirrhosis and diastolic dysfunction continue spironolactone for now given #1 (3) Stage 3b chronic kidney disease (CKD): Code(s): N18.32 - Chronic kidney disease, stage 3b Status: Acute Assessment and Plan: creatinine has fluctuated to extremes in the past mostly due to adjustments in diuretic therapy seems to average out to 1.4 - 2.1mg/dl follow trend (4) Hyponatremia: Code(s): E87.1 - Hypo-osmolality and hyponatremia Status: Acute Assessment and Plan: probably from diuretics and increased free water intake doing better at this time remains off loop diuretics on fluid restriction (which she is not happy about) sodium improving.... Not opposed to discharge from renal perspective if she is otherwise medically stable. Will continue to follow. Subjective Date/time seen: 09/05/22 11:24 Swelling/edema in lower extremities remains virtually resolved but she has multiple complaints with regard to diminished physical status, not being seen by PT/OT as of yet, the fluid restriction...etc. She does not appear in any distress on my visit. Exam Narrative: General: WD/WN female in NAD Heart: normal S1 and S2; no rub Lungs: clear to auscultation Abdomen: soft, nontender, nondistended, positive bowel sounds Extremities: no cyanosis or clubbing; trace edema Skin: warm and intact Objective Data Vital Signs Vital Signs: Vital Signs Temp Pulse Resp BP Pulse Ox O2 Del Method 09/05/22 08:35 Room Air 09/05/22 08:55 92 18 09/05/22 08:41 91 18 09/05/22 08:41 95 Room Air 09/05/22 06:00 98.6 F 85 14 152/58 H 91 09/04/22 20:00 85 09/04/22 20:00 Room Air 09/04/22 21:52 97.1 F L 77 14 125/52 L 95 09/04/22 16:00 94 09/04/22 15:14 87 18 09/04/22 15:04 86 18 Intake/Output Intake/Output: Intake & Output 09/02/22 09/03/22 09/04/22 09/05/22 23:59 23:59 23:59 23:59 Intake Total 2235 1410 1730 990 Output Total 559 120 1103 1200 Balance 2083 979 -685 -018 Meds/Results Medications: Active Medications Generic Name Dose Route Start Last Admin Trade Name Freq PRN Reason Stop Dose Admin Acetaminophen 650 mg 08/27/22 10:32 09/05/22 08:25 Acetaminophen 325 Mg Tablet PO 650 mg Q4H PRN Administration Mild Pain (1-3) or Fever Albuterol 2.5 mg 08/30/22 14:00 09/05/22 13:37 Albuterol Sulfate Neb 2.5 Mg/3 Ml Inh INHALATION 2.5 mg Q6HRT KAVITHA Administration Alprazolam 0.5 mg 08/31/22 20:54 09/05/22 08:25 Alprazolam (*Crx) 0.5 Mg Tablet PO 0.5 mg QID PRN Administration Anxiety Clopidogrel Bisulfate 75 mg 08/28/22 09:00 09/05/22 08:27 Clopidogrel Bisulfate 75 Mg Tablet PO 75 mg DAILY KAVITHA Administration Docusate Sodium 100 mg 09/03/22 09:00 09/05/22 08:27 Docusate Sodium 100 Mg Capsule PO 100 mg Q12HR KAVITHA Administration Ipratropium [place] 0.5 mg 08/29/22 20:00 09/05/22 13:37 Ipratropium Br 0.02% Inh Soln 0.5 Mg/2.5 Ml Vial INHALATION 0.5 mg Q6HRT KAVITHA Administration Irbesartan 150 mg 09/03/22 09:00 09/05/22 08:27 Irbesartan 150 Mg Tablet PO 150 mg DAILY KAVITHA Administration Levothyroxine Sodium 75 mcg 08/28/22 06:30 09/05/22 05:54 Levothyroxine Sodium 75 Mcg Tablet PO 75 mcg DAILY@0630 KAVITHA Administration Lidocaine 1 patch 08/30/22 09:00 09/05/22 08:28 Lidocaine 5% Patch TRANSDERM 1 patch DAILY KAVITHA Administration Lidocaine 1 patc
--- NOTE | 2022-09-05 11:52 | PM.DS ---
DS: Admitting Diagnosis Discharge Date 09/05/2022 1152 Admitting Diagnosis Acute hypokalemia? Chronic kidney disease, stage 3 COPD, chronic Essential HTN? Hypothyroidism, chronic Leg weakness, bilateral Obstructive sleep apnea, chronic Depression Anxiety DS: Discharge Diagnosis Discharge Diagnosis (1) Acute hypokalemia: Code(s): E87.6 - Hypokalemia Status: Acute Assessment and Plan: Patient originally came to the ER due to falling on her knees and was found to have hypokalemia K 2.7 EKG was read as sinus rhythm no previous EKG available for comparison. patient started back on her home potassium supplement of 20 mg twice a day & potassium increased slowly. 08/31/22 patient started back on 2 mg Bumex once a day. Patient's kidneys responded well to Bumex. Potassium on hold due to patient's potassium being 3.7 today. Will reassess tomorrow on how much potassium needs to be replaced on 2 mg Bumex. Depending on the amount of potassium needing be replaced patient can be discharged with that regimen of PO potassium daily. Discussed with attending physician and Dr. Sy and they are both in agreement with this plan. 09/01/22 potassium normalized after restarting Bumex at 2 mg once a day 09/03/22 Bumex discontinued due to elevated creatinine, continued spironolactone. Nephrology following 09/04/22 stable. (2) Leukocytosis: Code(s): D72.829 - Elevated white blood cell count, unspecified Status: Acute Assessment and Plan: patient with white blood cell count between 17 and 14. No signs of infection during her stay. white blood cell count is 23 on 09/02/22 Repeat chest x-ray 09/02 no acute cardiopulmonary process MRSA swab negative Procalcitonin normal Lactic acid normal Blood cultures negative x2 UA the possible UTI, culture less than 10,000 CFU gram positive cocci. Antibiotics stopped 09/04 and WBC continued to decreased off antibiotics. Patient afebrile. (3) Hypoxia: Code(s): R09.02 - Hypoxemia Status: Acute Assessment and Plan: patient oxygen dropped in the 80s overnight and patient was put on 2 L of oxygen during hospitalization. patient not normally on oxygen at home has history of COPD and uses inhalers as needed repeat chest x-ray ordered and revealed clear lungs on exam nebulizer treatments ordered. 08/31/22 patient weaned to room air (4) Anxiety: Code(s): F41.9 - Anxiety disorder, unspecified Status: Chronic Assessment and Plan: continue home medications of Xanax (5) Chronic kidney disease, stage 3: Qualifiers: Chronic kidney disease stage 3 subtype: stage 3a (GFR 45-59) Qualified Code(s): N18.31 - Chronic kidney disease, stage 3a Code(s): N18.3 - Chronic kidney disease, stage 3 (moderate) Status: Acute Assessment and Plan: Avoid nephrotoxic medication The patient sees Dr. Gutierrez outpatient. Her baseline is anywhere from 1.4 to 1.7 BUN 53, creatinine 2.3, GFR 20 Nephrology consulted and appreciate recommendations. diuretics adjusted- bumex stopped. continued on spironolactone daily (6) COPD (chronic obstructive pulmonary disease): Qualifiers: COPD type: unspecified COPD Qualified Code(s): J44.9 - Chronic obstructive pulmonary disease, unspecified Code(s): J44.9 - Chronic obstructive pulmonary disease, unspecified Status: Chronic Assessment and Plan: Chronic, not in acute exacerbation -continue home meds (7) HTN (hypertension): Qualifiers: Hypertension type: primary hypertension Qualified Code(s): I10 - Essential (primary) hypertension Code(s): I10 - Essential (primary) hypertension Status: Acute Assessment and Plan: -continue with irbesartan -stopped metolazone and bumex -continue with spironolactone -Amlodipine discontinued (8) Hypothyroidism: Qualifiers: Hypothyroidism type: acquired Rohit
[2022-09-05 13:37] VITALS: PULSE 90; RESP 18
[2022-09-05 13:54] VITALS: PULSE 92; RESP 18
== END 2022-09-05 15:00 | DRG 641 ==
LOC: ANHED 10:35 → ANH3MEDSUR 10:44
PROVIDERS: Internal Medicine Critical Care Medicine; Internal Medicine Nephrology; Nurse Practitioner; Student in an Organized Health Care Education/Training Program; Admitting Provider Chiropractor; Emergency Provider Emergency Medicine; PCP Family Medicine; Visit Provider Nurse Practitioner Family
DX: E87.6 Hypokalemia (principal); S80.02XA Contusion of left knee, initial encounter; W05.0XXA Fall from non-moving wheelchair, initial encounter; D50.9 Iron deficiency anemia, unspecified; E03.9 Hypothyroidism, unspecified; E87.3 Alkalosis; E55.9 Vitamin D deficiency, unspecified; E78.5 Hyperlipidemia, unspecified; E87.1 Hypo-osmolality and hyponatremia; F41.9 Anxiety disorder, unspecified; F32.9 Major depressive disorder, single episode, unspecified; G47.33 Obstructive sleep apnea (adult) (pediatric); I12.9 Hypertensive chronic kidney disease with stage 1 through stage 4 chronic kidney disease, or unspecified chronic kidney disease; J43.9 Emphysema, unspecified; K74.60 Unspecified cirrhosis of liver; K21.9 Gastro-esophageal reflux disease without esophagitis; K58.9 Irritable bowel syndrome, unspecified; M47.816 Spondylosis without myelopathy or radiculopathy, lumbar region; M81.0 Age-related osteoporosis without current pathological fracture; M25.761 Osteophyte, right knee; M17.12 Unilateral primary osteoarthritis, left knee; N18.32 Chronic kidney disease, stage 3b; R09.02 Hypoxemia; Z88.0 Allergy status to penicillin; Z91.81 History of falling; Z20.822 Contact with and (suspected) exposure to COVID-19; Z98.49 Cataract extraction status, unspecified eye; Z96.643 Presence of artificial hip joint, bilateral; Z87.891 Personal history of nicotine dependence; Z86.73 Personal history of transient ischemic attack (TIA), and cerebral infarction without residual deficits; Z99.3 Dependence on wheelchair; Z79.02 Long term (current) use of antithrombotics/antiplatelets; Z86.16 Personal history of COVID-19; Z99.89 Dependence on other enabling machines and devices
CPT/HCPCS: 36415; 51701; 70450; 71045; 71046; 73564; 80048; 80053; 80069; 81001; 81003; 82436; 82533; 82570; 83605; 83735; 84100; 84132; 84133; 84145; 84156; 84300; 84443; 84484; 84540; 85025; 85027; 87040; 87081; 87086; 87088; 87636; 93005; 93306; 94640; 96365; 97110; 97161; 97165; 97530; 97535; 99285; A9270; G0378; J2405; J3370; J3475

== ENCOUNTER 2022-11-26 10:40 | Outpatient (CLI) | payer MEDICARE, BC, SELFPAY ==
[2022-11-26 12:06] LABS: Anion Gap 8 mmol/L (8-16); Blood Urea Nitrogen 34 mg/dL (7-17); Calcium 8.9 mg/dL (8.4-10.2); Carbon Dioxide 32 mmol/L (22-30); Chloride 100 mmol/L (98-107); Estimated Glomerular Filt Rate 33; Glucose 90 mg/dL (65-110); Potassium 3.7 mmol/L (3.4-5.0); Sodium 140 mmol/L (137-145)
== END 2022-11-26 10:41 | disposition home or self-care (01) ==
LOC: ANHLAB 10:43
PROVIDERS: PCP Family Medicine; Visit Provider Family Medicine
DX: N18.32 Chronic kidney disease, stage 3b (principal)
CPT/HCPCS: 36415; 80048

== ENCOUNTER 2022-12-10 11:19 | Outpatient (CLI) | payer MEDICARE, BC, SELFPAY ==
[2022-12-10 11:47] LABS: Anion Gap 6 mmol/L (8-16); Blood Urea Nitrogen 48 mg/dL (7-17); Calcium 9.4 mg/dL (8.4-10.2); Carbon Dioxide 33 mmol/L (22-30); Chloride 96 mmol/L (98-107); Estimated Glomerular Filt Rate 36; Glucose 93 mg/dL (65-110); Potassium 4.7 mmol/L (3.4-5.0); Sodium 135 mmol/L (137-145)
== END 2022-12-10 11:20 | disposition home or self-care (01) ==
LOC: ANHLAB 11:22
PROVIDERS: PCP Family Medicine; Referring Provider Internal Medicine Nephrology; Visit Provider Family Medicine
DX: N18.32 Chronic kidney disease, stage 3b (principal)
CPT/HCPCS: 36415; 80048

== ENCOUNTER 2022-12-24 11:21 | Outpatient (CLI) | payer MEDICARE, BC, SELFPAY ==
[2022-12-24 12:06] LABS: Creatinine Urine 10.2 mg/dL; Total Protein Urine Random 9 mg/dL; Ur Ttl Prot Creatinine Ratio 0.88 mg/mg (0-0.20)
[2022-12-24 12:15] LABS: Anion Gap 11 mmol/L (8-16); Blood Urea Nitrogen 32 mg/dL (7-17); Calcium 9.1 mg/dL (8.4-10.2); Carbon Dioxide 27 mmol/L (22-30); Chloride 99 mmol/L (98-107); Estimated Glomerular Filt Rate 36; Glucose 92 mg/dL (65-110); Potassium 4.9 mmol/L (3.4-5.0); Sodium 137 mmol/L (137-145)
[2022-12-24 12:16] LABS: Albumin Level 4.3 g/dL (3.5-5.1); Anion Gap 7 mmol/L (8-16); Blood Urea Nitrogen 31 mg/dL (7-17); Calcium 9.1 mg/dL (8.4-10.2); Carbon Dioxide 30 mmol/L (22-30); Chloride 100 mmol/L (98-107); Estimated Glomerular Filt Rate 36; Glucose 91 mg/dL (65-110); Phosphorus 4.1 mg/dL (2.5-4.5); Potassium 4.9 mmol/L (3.4-5.0); Sodium 137 mmol/L (137-145)
[2022-12-24 12:24] LABS: Parathyroid Intact 132.6 pg/mL (7.5-53.5)
[2022-12-24 13:09] LABS: Vitamin D 25 Hydroxy 40.1 ng/mL
== END 2022-12-24 11:22 | disposition home or self-care (01) ==
PROVIDERS: PCP Family Medicine; Referring Provider Internal Medicine Nephrology; Visit Provider Family Medicine
DX: N18.32 Chronic kidney disease, stage 3b (principal); I12.9 Hypertensive chronic kidney disease with stage 1 through stage 4 chronic kidney disease, or unspecified chronic kidney disease; N25.81 Secondary hyperparathyroidism of renal origin; E55.9 Vitamin D deficiency, unspecified
CPT/HCPCS: 36415; 80048; 80069; 82306; 82570; 83970; 84156

== ENCOUNTER 2023-01-07 12:23 | Outpatient (CLI) | payer MEDICARE, BC, SELFPAY ==
[2023-01-07 12:57] LABS: Anion Gap 6 mmol/L (8-16); Blood Urea Nitrogen 30 mg/dL (7-17); Calcium 8.7 mg/dL (8.4-10.2); Carbon Dioxide 27 mmol/L (22-30); Chloride 104 mmol/L (98-107); Estimated Glomerular Filt Rate 39; Glucose 80 mg/dL (65-110); Potassium 4.8 mmol/L (3.4-5.0); Sodium 137 mmol/L (137-145)
== END 2023-01-07 12:24 | disposition home or self-care (01) ==
LOC: ANHLAB 12:26
PROVIDERS: PCP Family Medicine; Visit Provider Family Medicine
DX: N18.32 Chronic kidney disease, stage 3b (principal)
CPT/HCPCS: 36415; 80048

== ENCOUNTER 2023-02-11 10:01 | Outpatient (CLI) | payer MEDICARE, BC, SELFPAY ==
[2023-02-11 11:31] LABS: Anion Gap 7 mmol/L (8-16); Blood Urea Nitrogen 51 mg/dL (7-17); Calcium 8.9 mg/dL (8.4-10.2); Carbon Dioxide 30 mmol/L (22-30); Chloride 101 mmol/L (98-107); Estimated Glomerular Filt Rate 36; Glucose 90 mg/dL (65-110); Potassium 3.8 mmol/L (3.4-5.0); Sodium 138 mmol/L (137-145)
== END 2023-02-11 10:02 | disposition home or self-care (01) ==
PROVIDERS: PCP Family Medicine; Visit Provider Family Medicine
DX: N18.32 Chronic kidney disease, stage 3b (principal)
CPT/HCPCS: 36415; 80048

== ENCOUNTER 2023-02-11 13:20 | Outpatient (RCR) | payer MEDICARE, BC, SELFPAY ==
[2023-02-11 13:19] VITALS: BMI 37.8
[2023-02-11 13:30] VITALS: BMI 37.8
== END 2023-03-20 16:13 | disposition home or self-care (01) ==
LOC: ANHDMC 13:20
PROVIDERS: PCP Family Medicine; Visit Provider Family Medicine
DX: N18.32 Chronic kidney disease, stage 3b (principal); N25.81 Secondary hyperparathyroidism of renal origin; I25.10 Atherosclerotic heart disease of native coronary artery without angina pectoris; D50.8 Other iron deficiency anemias; E63.9 Nutritional deficiency, unspecified; E53.8 Deficiency of other specified B group vitamins; E16.2 Hypoglycemia, unspecified; E83.42 Hypomagnesemia; E66.9 Obesity, unspecified; Z68.37 Body mass index [BMI] 37.0-37.9, adult; Z71.3 Dietary counseling and surveillance
CPT/HCPCS: 36415; 80048; 97802

== ENCOUNTER 2023-02-25 10:32 | Outpatient (CLI) | payer MEDICARE, BC, SELFPAY ==
[2023-02-25 11:07] LABS: Anion Gap 7 mmol/L (8-16); Blood Urea Nitrogen 40 mg/dL (7-17); Calcium 8.7 mg/dL (8.4-10.2); Carbon Dioxide 32 mmol/L (22-30); Chloride 100 mmol/L (98-107); Estimated Glomerular Filt Rate 33; Glucose 115 mg/dL (65-110); Potassium 4.3 mmol/L (3.4-5.0); Sodium 139 mmol/L (137-145)
[2023-02-25 11:44] LABS: Appearance Urine Clear (Clear); Bilirubin Urine Negative (Negative); Blood Urine Negative (Negative); Color Urine Yellow (Yellow); Glucose Urine UA Negative (Negative); Ketones Urine Negative (Negative); Leukocyte Esterase Ur Negative LEU/UL (Negative); Nitrate Urine Negative (Negative); Protein Urine Negative (Negative); Specific Grav Ur 1.007 (1.001-1.035); Urobilinogen Urine 0.2 mg/dL (<2.0); pH Urine 5.5 (5.0-9.0)
[2023-02-25 11:48] LABS: Add Urine Microscopic? NO
== END 2023-02-25 10:33 | disposition home or self-care (01) ==
PROVIDERS: PCP Family Medicine; Visit Provider Family Medicine
DX: R30.9 Painful micturition, unspecified (principal); N18.32 Chronic kidney disease, stage 3b
CPT/HCPCS: 36415; 80048; 81003

== ENCOUNTER 2023-03-13 14:02 | Outpatient (CLI) | payer MEDICARE, BC, SELFPAY ==
[2023-03-13 15:22] LABS: Anion Gap 4 mmol/L (8-16); Blood Urea Nitrogen 22 mg/dL (7-17); Calcium 9.2 mg/dL (8.4-10.2); Carbon Dioxide 30 mmol/L (22-30); Chloride 103 mmol/L (98-107); Estimated Glomerular Filt Rate 42; Glucose 94 mg/dL (65-110); Potassium 5.1 mmol/L (3.4-5.0); Sodium 137 mmol/L (137-145)
== END 2023-03-13 14:03 | disposition home or self-care (01) ==
PROVIDERS: PCP Family Medicine; Visit Provider Family Medicine
DX: N18.32 Chronic kidney disease, stage 3b (principal)
CPT/HCPCS: 36415; 80048

== ENCOUNTER 2023-04-03 11:04 | Outpatient (CLI) | payer MEDICARE, BC, SELFPAY ==
[2023-04-03 11:41] LABS: Hematocrit 33.9 % (37.0-47.0); Hemoglobin 10.7 g/dL (12.0-15.0); Mean Corpuscular HGB Conc 31.6 g/dl (32-36); Mean Corpuscular Hemoglobin 29.1 pg (26-34); Mean Corpuscular Volume 92.1 fl (80-100); Mean Platelet Volume 8.3 fl (7.4-10.4); Platelet Count Result 476 k/mm3 (150-375); Red Blood Count 3.68 M/mm3 (4.2-5.4); Red Cell Distribution Width 14.3 % (11.5-14.5); White Blood Count 11.4 K/mm3 (4.5-10.0)
[2023-04-03 12:02] LABS: Anion Gap 8 mmol/L (8-16); Blood Urea Nitrogen 26 mg/dL (7-17); Calcium 9.2 mg/dL (8.4-10.2); Carbon Dioxide 28 mmol/L (22-30); Chloride 97 mmol/L (98-107); Estimated Glomerular Filt Rate 25; Glucose 73 mg/dL (65-110); Potassium 4.7 mmol/L (3.4-5.0); Sodium 133 mmol/L (137-145)
== END 2023-04-03 11:05 | disposition home or self-care (01) ==
LOC: ANHLAB 11:05
PROVIDERS: PCP Family Medicine; Visit Provider Family Medicine
DX: I50.30 Unspecified diastolic (congestive) heart failure (principal)
CPT/HCPCS: 36415; 80048; 85027

== ENCOUNTER 2023-04-15 11:33 | Outpatient (CLI) | payer MEDICARE, BC, SELFPAY ==
[2023-04-15 12:34] LABS: Creatinine Urine 23.3 mg/dL; Total Protein Urine Random 6 mg/dL; Ur Ttl Prot Creatinine Ratio 0.26 mg/mg (0-0.20)
[2023-04-15 12:38] LABS: Potassium 4.1 mmol/L (3.4-5.0)
[2023-04-15 12:40] LABS: Albumin Level 3.9 g/dL (3.5-5.1); Anion Gap 7 mmol/L (8-16); Blood Urea Nitrogen 33 mg/dL (7-17); Calcium 9.3 mg/dL (8.4-10.2); Carbon Dioxide 25 mmol/L (22-30); Chloride 102 mmol/L (98-107); Estimated Glomerular Filt Rate 30; Glucose 86 mg/dL (65-110); Phosphorus 4.5 mg/dL (2.5-4.5); Sodium 134 mmol/L (137-145)
== END 2023-04-15 11:34 | disposition home or self-care (01) ==
PROVIDERS: PCP Family Medicine; Visit Provider Internal Medicine Nephrology
DX: N25.81 Secondary hyperparathyroidism of renal origin (principal); I12.9 Hypertensive chronic kidney disease with stage 1 through stage 4 chronic kidney disease, or unspecified chronic kidney disease
CPT/HCPCS: 36415; 80069; 82570; 83970; 84156

== ENCOUNTER 2023-05-01 10:09 | Outpatient (CLI) | payer MEDICARE, BC, SELFPAY ==
[2023-05-01 10:52] LABS: Albumin Level 3.6 g/dL (3.5-5.1); Anion Gap 4 mmol/L (8-16); Blood Urea Nitrogen 28 mg/dL (7-17); Calcium 8.9 mg/dL (8.4-10.2); Carbon Dioxide 30 mmol/L (22-30); Chloride 101 mmol/L (98-107); Estimated Glomerular Filt Rate 36; Glucose 149 mg/dL (65-110); Magnesium 1.7 mg/dL (1.6-2.3); Phosphorus 4.2 mg/dL (2.5-4.5); Potassium 4.7 mmol/L (3.4-5.0); Sodium 135 mmol/L (137-145)
== END 2023-05-01 10:10 | disposition home or self-care (01) ==
LOC: ANHLAB 10:12
PROVIDERS: PCP Family Medicine; Visit Provider Internal Medicine Nephrology
DX: N18.32 Chronic kidney disease, stage 3b (principal)
CPT/HCPCS: 36415; 80069; 83735

== ENCOUNTER 2023-06-19 11:01 | Outpatient (CLI) | payer MEDICARE, BC, SELFPAY ==
[2023-06-19 13:07] LABS: Anion Gap 8 mmol/L (8-16); Blood Urea Nitrogen 36 mg/dL (7-17); Calcium 10.2 mg/dL (8.4-10.2); Carbon Dioxide 31 mmol/L (22-30); Chloride 96 mmol/L (98-107); Estimated Glomerular Filt Rate 30; Glucose 86 mg/dL (65-110); Phosphorus 4.2 mg/dL (2.5-4.5); Potassium 4.1 mmol/L (3.4-5.0); Sodium 135 mmol/L (137-145)
== END 2023-06-19 11:02 | disposition home or self-care (01) ==
PROVIDERS: PCP Family Medicine; Visit Provider Internal Medicine Nephrology
DX: N18.32 Chronic kidney disease, stage 3b (principal)
CPT/HCPCS: 36415; 80069

== ENCOUNTER 2023-07-29 10:27 | Outpatient (CLI) | payer MEDICARE, BC, SELFPAY ==
[2023-07-29 10:53] LABS: Appearance Urine Clear (Clear); Bilirubin Urine Negative (Negative); Blood Urine Negative (Negative); Color Urine Yellow (Yellow); Glucose Urine UA Negative (Negative); Ketones Urine Negative (Negative); Leukocyte Esterase Ur Negative LEU/UL (Negative); Nitrate Urine Negative (Negative); Protein Urine Negative (Negative); Specific Grav Ur 1.007 (1.001-1.035); Urobilinogen Urine 0.2 mg/dL (<2.0); pH Urine 5.5 (5.0-9.0)
[2023-07-29 11:04] LABS: Add Urine Microscopic? NO
[2023-07-29 12:16] LABS: Anion Gap 10 mmol/L (8-16); Blood Urea Nitrogen 37 mg/dL (7-17); Calcium 9.3 mg/dL (8.4-10.2); Carbon Dioxide 28 mmol/L (22-30); Chloride 95 mmol/L (98-107); Estimated Glomerular Filt Rate 25; Glucose 81 mg/dL (65-110); Phosphorus 4.1 mg/dL (2.5-4.5); Potassium 4.2 mmol/L (3.4-5.0); Sodium 133 mmol/L (137-145)
== END 2023-07-29 10:28 | disposition home or self-care (01) ==
PROVIDERS: PCP Family Medicine; Visit Provider Family Medicine
DX: N19 Unspecified kidney failure (principal); R30.9 Painful micturition, unspecified
CPT/HCPCS: 36415; 80069; 81003

== ENCOUNTER 2023-09-23 11:09 | Outpatient (CLI) | payer MEDICARE, BC, SELFPAY ==
[2023-09-23 12:06] LABS: Creatinine Urine 72.5 mg/dL; Total Protein Urine Random 10 mg/dL; Ur Ttl Prot Creatinine Ratio 0.14 mg/mg (0-0.20)
[2023-09-23 12:09] LABS: Albumin Level 3.9 g/dL (3.5-5.1); Anion Gap 6 mmol/L (8-16); Blood Urea Nitrogen 30 mg/dL (7-17); Calcium 8.8 mg/dL (8.4-10.2); Carbon Dioxide 30 mmol/L (22-30); Chloride 99 mmol/L (98-107); Estimated Glomerular Filt Rate 33; Glucose 92 mg/dL (65-110); Potassium 4.2 mmol/L (3.4-5.0); Sodium 135 mmol/L (137-145)
== END 2023-09-23 11:10 | disposition home or self-care (01) ==
LOC: ANHLAB 11:15
PROVIDERS: PCP Family Medicine; Visit Provider Internal Medicine Nephrology
DX: I12.9 Hypertensive chronic kidney disease with stage 1 through stage 4 chronic kidney disease, or unspecified chronic kidney disease (principal); N18.32 Chronic kidney disease, stage 3b
CPT/HCPCS: 36415; 80069; 82570; 84156; 99212; G0463

== ENCOUNTER 2023-12-02 13:07 | Outpatient (CLI) | payer MEDICARE, BC, SELFPAY ==
[2023-12-02 13:47] LABS: Anion Gap 5 mmol/L (4-12); Blood Urea Nitrogen 29 mg/dL (7-17); Calcium 9.2 mg/dL (8.4-10.2); Carbon Dioxide 32 mmol/L (22-30); Chloride 98 mmol/L (98-107); Estimated Glomerular Filt Rate 25; Glucose 113 mg/dL (65-110); Magnesium 2.4 mg/dL (1.6-2.3); Potassium 4.2 mmol/L (3.4-5.0); Sodium 135 mmol/L (137-145)
[2023-12-02 13:56] LABS: Basophils Absolute Auto 0.1 K/mm3 (0.0-0.1); Basophils Percent Auto 0.8 % (0.2-1.2); Eosinophils Absolute Auto 0.3 K/mm3 (0-0.3); Eosinophils Percent Auto 3.6 % (0-4.4); Hematocrit 33.2 % (37.0-47.0); Hemoglobin 10.2 g/dL (12.0-15.0); Immature Granulocyte Absolute 0.31 K/mm3 (0.00-0.031); Immature Granulocyte Percent A 3.5 % (0-0.5); Immature Platelet Fraction Pct 1.3 % (0.9-11.2); Lymphocytes Absolute Auto 1.33 K/mm3 (0.9-3.2); Mean Corpuscular HGB Conc 30.7 g/dl (32-36); Mean Corpuscular Hemoglobin 28.3 pg (26-34); Mean Platelet Volume 9.4 fl (7.4-10.4); Monocytes Percent Auto 10.8 % (2.6-8.5); NT Pro B Type Natriuretic Pept 131 pg/mL (19.9-100); Neutrophils Absolute Auto 5.9 K/mm3 (1.3-6.7); Neutrophils Percent Auto 66.3 % (45.5-73.1); Platelet Count Result 391 k/mm3 (150-375); Red Blood Count 3.61 M/mm3 (4.2-5.4); Red Cell Distribution Width 14.9 % (11.5-14.5); White Blood Count 8.9 K/mm3 (4.5-10.0)
[2023-12-02 18:01] LABS: Iron 72 ug/dL (37-170)
[2023-12-02 18:18] LABS: Percent Iron Saturation 18 % (20-50)
[2023-12-02 18:23] LABS: Free T4 Free Thyroxine 1.34 ng/mL (0.78-2.19)
== END 2023-12-02 13:08 | disposition home or self-care (01) ==
PROVIDERS: PCP Family Medicine; Visit Provider Family Medicine
DX: D50.8 Other iron deficiency anemias (principal); I11.0 Hypertensive heart disease with heart failure; I50.32 Chronic diastolic (congestive) heart failure; E53.8 Deficiency of other specified B group vitamins; E87.5 Hyperkalemia; E03.9 Hypothyroidism, unspecified
CPT/HCPCS: 36415; 80048; 82607; 82728; 83540; 83550; 83735; 83880; 84439; 84443; 85025; 85055; 99212; G0463

== ENCOUNTER 2023-12-23 10:19 | Outpatient (CLI) | payer MEDICARE, BC, SELFPAY ==
[2023-12-23 11:26] LABS: Albumin Level 4.1 g/dL (3.5-5.1); Anion Gap 6 mmol/L (4-12); Blood Urea Nitrogen 24 mg/dL (7-17); Calcium 9.5 mg/dL (8.4-10.2); Carbon Dioxide 28 mmol/L (22-30); Chloride 99 mmol/L (98-107); Estimated Glomerular Filt Rate 33; Glucose 93 mg/dL (65-110); Phosphorus 3.9 mg/dL (2.5-4.5); Potassium 4.2 mmol/L (3.4-5.0); Sodium 133 mmol/L (137-145)
== END 2023-12-23 10:20 | disposition home or self-care (01) ==
LOC: ANHLAB 10:21
PROVIDERS: PCP Family Medicine; Visit Provider Internal Medicine Nephrology
DX: N18.32 Chronic kidney disease, stage 3b (principal)
CPT/HCPCS: 36415; 80069; 99212; G0463

== ENCOUNTER 2024-01-08 11:36 | Outpatient (CLI) | payer MEDICARE, BC, SELFPAY ==
[2024-01-08 13:05] LABS: Iron 120 ug/dL (37-170); Percent Iron Saturation 30 % (20-50)
== END 2024-01-08 11:37 | disposition home or self-care (01) ==
PROVIDERS: PCP Family Medicine; Visit Provider Physician Assistant Medical
DX: D50.8 Other iron deficiency anemias (principal)
CPT/HCPCS: 36415; 83540; 83550; 99212; G0463

== ENCOUNTER 2024-01-20 12:07 | Outpatient (CLI) | payer MEDICARE, BC, SELFPAY ==
[2024-01-20 13:20] LABS: Albumin Level 4.3 g/dL (3.5-5.1); Anion Gap 7 mmol/L (4-12); Blood Urea Nitrogen 34 mg/dL (7-17); Calcium 9.5 mg/dL (8.4-10.2); Carbon Dioxide 29 mmol/L (22-30); Chloride 99 mmol/L (98-107); Estimated Glomerular Filt Rate 27; Glucose 131 mg/dL (65-110); Phosphorus 4.1 mg/dL (2.5-4.5); Sodium 135 mmol/L (137-145)
[2024-01-20 13:29] LABS: Creatinine Urine 14.9 mg/dL; Total Protein Urine Random 8 mg/dL; Ur Ttl Prot Creatinine Ratio 0.54 mg/mg (0-0.20)
[2024-01-20 13:31] LABS: Parathyroid Intact 170.3 pg/mL (7.5-53.5)
[2024-01-20 13:54] LABS: Vitamin D 25 Hydroxy 38.3 ng/mL
== END 2024-01-20 12:08 | disposition home or self-care (01) ==
PROVIDERS: PCP Family Medicine; Visit Provider Internal Medicine Nephrology
DX: E55.9 Vitamin D deficiency, unspecified (principal); I12.9 Hypertensive chronic kidney disease with stage 1 through stage 4 chronic kidney disease, or unspecified chronic kidney disease; N18.32 Chronic kidney disease, stage 3b; R60.0 Localized edema; N25.81 Secondary hyperparathyroidism of renal origin
CPT/HCPCS: 36415; 80069; 82306; 82570; 83970; 84156; 99212; G0463

== ENCOUNTER 2024-03-02 10:37 | Outpatient (CLI) | payer MEDICARE, BC, SELFPAY ==
[2024-03-02 11:27] LABS: Albumin Level 4.5 g/dL (3.5-5.1); Anion Gap 10 mmol/L (4-12); Blood Urea Nitrogen 45 mg/dL (7-17); Calcium 9.4 mg/dL (8.4-10.2); Carbon Dioxide 28 mmol/L (22-30); Chloride 99 mmol/L (98-107); Estimated Glomerular Filt Rate 25; Glucose 88 mg/dL (65-110); Phosphorus 4.5 mg/dL (2.5-4.5); Potassium 4.7 mmol/L (3.4-5.0); Sodium 137 mmol/L (137-145)
== END 2024-03-02 10:38 | disposition home or self-care (01) ==
LOC: ANHLAB 10:39
PROVIDERS: PCP Family Medicine; Visit Provider Internal Medicine Nephrology
DX: I12.9 Hypertensive chronic kidney disease with stage 1 through stage 4 chronic kidney disease, or unspecified chronic kidney disease (principal); N18.4 Chronic kidney disease, stage 4 (severe)
CPT/HCPCS: 36415; 80069; 99212; G0463

== ENCOUNTER 2024-05-04 09:11 | Outpatient (CLI) | payer MEDICARE, BC, SELFPAY ==
[2024-05-04 10:28] LABS: Creatinine Urine 24.8 mg/dL; Total Protein Urine Random 11 mg/dL; Ur Ttl Prot Creatinine Ratio 0.44 mg/mg (0-0.20)
[2024-05-04 10:31] LABS: Albumin Level 3.9 g/dL (3.5-5.1); Anion Gap 11 mmol/L (4-12); Blood Urea Nitrogen 46 mg/dL (7-17); Carbon Dioxide 29 mmol/L (22-30); Chloride 93 mmol/L (98-107); Estimated Glomerular Filt Rate 22; Glucose 106 mg/dL (65-110); Phosphorus 3.2 mg/dL (2.5-4.5); Potassium 5.1 mmol/L (3.4-5.0); Sodium 133 mmol/L (137-145)
[2024-05-04 10:44] LABS: Parathyroid Intact 101.6 pg/mL (14.5-75.2)
== END 2024-05-04 09:12 | disposition home or self-care (01) ==
LOC: ANHLAB 09:14
PROVIDERS: PCP Family Medicine; Referring Provider Family Medicine; Visit Provider Internal Medicine Nephrology
DX: N25.81 Secondary hyperparathyroidism of renal origin (principal); N18.32 Chronic kidney disease, stage 3b; R60.0 Localized edema
CPT/HCPCS: 36415; 80069; 82570; 83970; 84156; 99212; G0463

== ENCOUNTER 2024-06-15 11:08 | Outpatient (CLI) | payer MEDICARE, BC, SELFPAY ==
[2024-06-15 12:00] LABS: Basophils Absolute Auto 0.1 K/mm3 (0.0-0.1); Basophils Percent Auto 0.6 % (0.2-1.2); Eosinophils Absolute Auto 0.3 K/mm3 (0-0.3); Hematocrit 34.1 % (37.0-47.0); Hemoglobin 10.8 g/dL (12.0-15.0); Immature Granulocyte Percent A 1.9 % (0-0.5); Lymphocytes Absolute Auto 1.01 K/mm3 (0.9-3.2); Lymphocytes Percent Auto 9.6 % (18.3-44.2); Mean Corpuscular HGB Conc 31.7 g/dl (32-36); Mean Corpuscular Hemoglobin 29.2 pg (26-34); Mean Corpuscular Volume 92.2 fl (80-100); Mean Platelet Volume 9.2 fl (7.4-10.4); Monocytes Absolute Auto 1.1 K/mm3 (0.1-0.6); Monocytes Percent Auto 10.3 % (2.6-8.5); Neutrophils Absolute Auto 7.9 K/mm3 (1.3-6.7); Neutrophils Percent Auto 74.6 % (45.5-73.1); Platelet Count Result 395 k/mm3 (150-375); Red Cell Distribution Width 14.3 % (11.5-14.5); White Blood Count 10.5 K/mm3 (4.5-10.0)
[2024-06-15 12:10] LABS: Add Urine Microscopic? NO; Appearance Urine Clear (Clear); Bilirubin Urine Negative (Negative); Blood Urine Negative (Negative); Color Urine Yellow (Yellow); Glucose Urine UA Negative (Negative); Ketones Urine Negative (Negative); Leukocyte Esterase Ur Negative LEU/UL (Negative); Nitrate Urine Negative (Negative); Protein Urine Negative (Negative); Specific Grav Ur 1.005 (1.001-1.035); Urobilinogen Urine 0.2 mg/dL (<2.0); pH Urine 6.5 (5.0-9.0)
[2024-06-15 12:26] LABS: Anion Gap 11 mmol/L (4-12); Blood Urea Nitrogen 31 mg/dL (7-17); Calcium 9.3 mg/dL (8.4-10.2); Carbon Dioxide 28 mmol/L (22-30); Chloride 102 mmol/L (98-107); Estimated Glomerular Filt Rate 35; Glucose 87 mg/dL (65-110); Potassium 5.3 mmol/L (3.4-5.0); Sodium 141 mmol/L (137-145)
== END 2024-06-15 11:09 | disposition home or self-care (01) ==
LOC: ANHLAB 11:13
PROVIDERS: PCP Family Medicine; Visit Provider Family Medicine
DX: R31.9 Hematuria, unspecified (principal); L03.115 Cellulitis of right lower limb; N18.4 Chronic kidney disease, stage 4 (severe)
CPT/HCPCS: 36415; 80048; 81003; 85025; 87086

== ENCOUNTER 2024-06-29 09:34 | Outpatient (CLI) | payer MEDICARE, BC, SELFPAY ==
[2024-06-29 10:15] LABS: Albumin Level 3.9 g/dL (3.5-5.1); Anion Gap 9 mmol/L (4-12); Blood Urea Nitrogen 48 mg/dL (7-17); Calcium 9.2 mg/dL (8.4-10.2); Carbon Dioxide 29 mmol/L (22-30); Chloride 96 mmol/L (98-107); Estimated Glomerular Filt Rate 19; Glucose 131 mg/dL (65-110); Sodium 134 mmol/L (137-145)
== END 2024-06-29 09:35 | disposition home or self-care (01) ==
LOC: ANHLAB 09:35
PROVIDERS: PCP Family Medicine; Visit Provider Internal Medicine Nephrology
DX: L03.115 Cellulitis of right lower limb (principal); R60.0 Localized edema; N18.32 Chronic kidney disease, stage 3b; E87.5 Hyperkalemia
CPT/HCPCS: 36415; 80069; 99212; G0463

== ENCOUNTER 2024-07-13 09:17 | Outpatient (RCR) | payer MEDICARE, BC, SELFPAY ==
[2024-07-13 10:03] VITALS: BMI 38.0
--- NOTE | 2024-07-26 09:36 | PCWOUND ---
WOCN NOTE Patient called to say she wants to cancel her appointment for tomorrow and will not be coming back. She does not have a yeast problem on her leg and that she has cellulitis and is being treated elsewhere.
== END 2024-07-26 09:40 | disposition home or self-care (01) ==
LOC: ANHWOC 09:17
PROVIDERS: PCP Family Medicine; Visit Provider Family Medicine
DX: S81.802A Unspecified open wound, left lower leg, initial encounter (principal); L03.116 Cellulitis of left lower limb
CPT/HCPCS: 99213; G0463

== ENCOUNTER 2024-07-15 10:17 | Outpatient (CLI) | payer MEDICARE, BC, SELFPAY ==
[2024-07-15 10:43] LABS: Basophils Absolute Auto 0.1 K/mm3 (0.0-0.1); Basophils Percent Auto 0.6 % (0.2-1.2); Eosinophils Absolute Auto 0.7 K/mm3 (0-0.3); Eosinophils Percent Auto 7.1 % (0-4.4); Hematocrit 31.8 % (37.0-47.0); Hemoglobin 10.4 g/dL (12.0-15.0); Immature Granulocyte Percent A 1.9 % (0-0.5); Lymphocytes Absolute Auto 1.04 K/mm3 (0.9-3.2); Mean Corpuscular HGB Conc 32.7 g/dl (32-36); Mean Corpuscular Hemoglobin 29.5 pg (26-34); Mean Corpuscular Volume 90.3 fl (80-100); Mean Platelet Volume 8.7 fl (7.4-10.4); Monocytes Absolute Auto 1.1 K/mm3 (0.1-0.6); Neutrophils Absolute Auto 7.2 K/mm3 (1.3-6.7); Neutrophils Percent Auto 69.4 % (45.5-73.1); Platelet Count Result 367 k/mm3 (150-375); Red Blood Count 3.52 M/mm3 (4.2-5.4); Red Cell Distribution Width 14.2 % (11.5-14.5); White Blood Count 10.4 K/mm3 (4.5-10.0)
[2024-07-15 10:52] LABS: Anion Gap 10 mmol/L (4-12); Blood Urea Nitrogen 39 mg/dL (7-17); Calcium 8.9 mg/dL (8.4-10.2); Carbon Dioxide 29 mmol/L (22-30); Chloride 99 mmol/L (98-107); Estimated Glomerular Filt Rate 22; Glucose 107 mg/dL (65-110); Potassium 3.6 mmol/L (3.4-5.0); Sodium 138 mmol/L (137-145)
== END 2024-07-15 10:18 | disposition home or self-care (01) ==
LOC: ANHLAB 10:18
PROVIDERS: PCP Family Medicine; Visit Provider Family Medicine
DX: N18.4 Chronic kidney disease, stage 4 (severe) (principal); D63.1 Anemia in chronic kidney disease
CPT/HCPCS: 36415; 80048; 85025; 99212; G0463

== ENCOUNTER 2024-08-03 09:15 | Outpatient (CLI) | payer MEDICARE, BC, SELFPAY ==
[2024-08-03 10:06] LABS: Basophils Absolute Auto 0.1 K/mm3 (0.0-0.1); Basophils Percent Auto 0.6 % (0.2-1.2); Eosinophils Absolute Auto 0.3 K/mm3 (0-0.3); Eosinophils Percent Auto 3.2 % (0-4.4); Hematocrit 32.5 % (37.0-47.0); Hemoglobin 10.4 g/dL (12.0-15.0); Immature Granulocyte Absolute 0.28 K/mm3 (0.00-0.031); Immature Granulocyte Percent A 2.6 % (0-0.5); Immature Platelet Fraction Pct 1.7 % (0.9-11.2); Lymphocytes Absolute Auto 1.07 K/mm3 (0.9-3.2); Mean Corpuscular Hemoglobin 28.8 pg (26-34); Mean Platelet Volume 9.7 fl (7.4-10.4); Monocytes Absolute Auto 1.2 K/mm3 (0.1-0.6); Monocytes Percent Auto 11.6 % (2.6-8.5); Neutrophils Absolute Auto 7.7 K/mm3 (1.3-6.7); Platelet Count Result 348 k/mm3 (150-375); Red Blood Count 3.61 M/mm3 (4.2-5.4); Red Cell Distribution Width 14.8 % (11.5-14.5); White Blood Count 10.7 K/mm3 (4.5-10.0)
[2024-08-03 10:25] LABS: Anion Gap 10 mmol/L (4-12); Blood Urea Nitrogen 29 mg/dL (7-17); Calcium 8.7 mg/dL (8.4-10.2); Carbon Dioxide 26 mmol/L (22-30); Chloride 103 mmol/L (98-107); Estimated Glomerular Filt Rate 35; Glucose 125 mg/dL (65-110); Potassium 3.7 mmol/L (3.4-5.0); Sodium 139 mmol/L (137-145)
== END 2024-08-03 09:16 | disposition home or self-care (01) ==
PROVIDERS: PCP Family Medicine; Visit Provider Family Medicine
DX: N18.4 Chronic kidney disease, stage 4 (severe) (principal); D63.1 Anemia in chronic kidney disease
CPT/HCPCS: 36415; 80048; 85025; 85055; 99212; G0463

== ENCOUNTER 2024-12-02 09:51 | Outpatient (CLI) | payer MEDICARE, BC, SELFPAY ==
[2024-12-02 10:33] LABS: Hematocrit 31.1 % (37.0-47.0); Hemoglobin 9.6 g/dL (12.0-15.0); Mean Corpuscular HGB Conc 30.9 g/dl (32-36); Mean Corpuscular Hemoglobin 28.1 pg (26-34); Mean Corpuscular Volume 90.9 fl (80-100); Mean Platelet Volume 9.1 fl (7.4-10.4); Platelet Count Result 357 k/mm3 (150-375); Red Blood Count 3.42 M/mm3 (4.2-5.4); Red Cell Distribution Width 15.3 % (11.5-14.5); White Blood Count 8.7 K/mm3 (4.5-10.0)
[2024-12-02 10:42] LABS: Anion Gap 9 mmol/L (4-12); Blood Urea Nitrogen 24 mg/dL (7-17); Calcium 9.2 mg/dL (8.4-10.2); Carbon Dioxide 28 mmol/L (22-30); Chloride 102 mmol/L (98-107); Estimated Glomerular Filt Rate 34; Glucose 88 mg/dL (65-110); Potassium 4.6 mmol/L (3.4-5.0); Sodium 139 mmol/L (137-145)
--- OUTSIDE RECORDS SUMMARY | 2024-12-02 10:48 | XMS_ITS | Clinical Summary ---
Author Organization [facility] Address [address] [address] Phone Care Team Providers Care Medical Transcription Editor Name Role Phone Irving Montes MD Primary Care Provider [phone] Allergies Active Allergy Reactions Criticality Noted Date Comments Codeine Rash Low 10/21/2019 Cephalexin Low 10/21/2019 Upset stomach Niacin Hives 10/21/2019 Penicillins Hives 10/21/2019 Medications Medication Sig Dispensed Refills Start Date End Date Status ALPRAZolam (XANAX) 0.5 MG tablet TK 1 T PO QID 08/23/2019 Active amLODIPine (NORVASC) 5 MG tablet TK 1 T PO D 07/26/2019 Active atorvastatin (LIPITOR) 10 MG tablet 08/11/2019 Active clopidogrel (PLAVIX) 75 MG tablet TK 1 T PO QD 08/06/2019 Active cyanocobalamin (VITAMIN B-12) 1000 MCG/ML injection INJECT 1 ML SQ Q MONTH 08/11/2019 Active esomeprazole (NexIUM) [address] capsule TK ONE C PO D 08/23/2019 Active irbesartan (AVAPRO) 300 MG tablet TK 1 T PO QD 07/28/2019 Active metOLazone (ZAROXOLYN) 5 MG tablet TK 1 T PO QD 08/06/2019 Active montelukast (SINGULAIR) 10 MG tablet TK 1 T PO D 08/23/2019 Active traMADol (ULTRAM) 50 MG tablet TK 1 TO 2 TS PO Q 6 TO 8 H PRN 07/28/2019 Active albuterol HFA (PROVENTIL HFA;VENTOLIN HFA) 108 (90 Base) MCG/ACT inhaler albuterol sulfate HFA 90 mcg/actuation aerosol inhaler Active furosemide (Lasix) 40 MG tablet Take 3 tablets (120 mg total) by mouth 1 (one) time each day 90 tablet 3 04/06/2020 Active potassium chloride (K-Tab) 10 MEQ CR tablet Take 10 mEq by mouth 4 times a day Active levothyroxine (SYNTHROID) 75 MCG tablet levothyroxine 75 mcg tablet Active Fluocinolone Acetonide 0.01 % oil fluocinolone acetonide oil 0.01 % ear drops Active phenazopyridine (PYRIDIUM) 200 MG tablet 09/25/2020 Active escitalopram (LEXAPRO) 10 MG tablet Take 10 mg by mouth 1 (one) time each day Active spironolactone (ALDACTONE) 25 MG tablet TAKE 1/2 TABLET BY MOUTH EVERY DAY 15 tablet 4 11/29/2021 Active Pancrelipase, Uom-Hoad-Pryc, (Zenpep) 52466-333124 units capsule delayed-release particles TAKE 2 CAPSULES BY MOUTH WITH MEALS AND 1 CAPSULE WITH SNACKS FOUR TIMES DAILY 12/07/2021 Active bumetanide (BUMEX) 2 MG tablet Take 2 tablets (4 mg total) by mouth 2 (two) times a day 120 tablet 5 06/07/2022 Active Active Problems Problem Noted Date Diagnosed Date Chronic heart failure co-occ urrent with normal ejection fraction 07/13/2020 Chronic kidney disease stage 3A 07/13/2020 Chronic eczema of external auditory canal 2019 Degeneration of intervertebral disc 10/21/2019 Disorder of bursa of shoulder region 10/21/2019 Dyslipidemia 04/27/2019 Edema of lower extremity 02/19/2019 Overview (10/21/2019): Last Assessment & Plan: Swelling likely associated with feet being in the dependent position, and activity. Plan: Educated patient on the importance of utilizing compression therapy and leg elevation for management symptoms. Bilateral lower limb edema 02/19/2019 Overview (11/16/2020): Last Assessment & Plan: Impression: Chronic bilateral lower extremity edema that waxes and wanes. Underlying etiology is likely multifactorial including venous disease, lymphedema, obesity. Plan: Daily compression regimen with medical grade knee-high compression stockings 15-20 mm mercury in strength with leg elevation p.r.n.. Carotid artery stenosis 07/22/2016 Overview (11/16/2020): Carotid stenosis, asymptomatic, right Last Assessment & Plan: Impression: Stable asymptomatic bilateral internal carotid artery stenoses. Plan: Recommend ongoing risk factor modifications and follow-up in 1 year for re-evaluation and repeat carotid duplex surveillance. Renal artery stenosis of unknown cause 6 Overview (11/16/2020): Right renal artery stenosis Dyspnea on exertion 06/20/2015 Overview (10/21/2019): BOB (dyspnea on exertion) Hypertensive heart AND renal disease 04/10/2015 Overview (10/21/2019): Heart failure, unspecified Chronic kidney disease Hypertension Hyperlipidemia Congestive heart failure Cerebrovascular accident Anxiety Asthma Chronic obstructive pulmonary disease Gastroesophageal reflux disease Osteoarthritis Depressive disorder Immunizations Name Administration Dates Next Due Influenza (IM) Preservative Free 07/03/2015 Influenza Split High Dose Pr eservative Free IM 05/25/2019,06/16/2018,05/16/2014 Influenza TIV (IM) 05/23/2015,06/14/2013 Influenza Trivalent Adjuvanted 06/21/2017 Influenza, Injectable, Quadrivalent 07/13/2020,1 Influenza, Injectable, Quadr ivalent, Preservative Free 06/29/2016 Zoster 07/28/2015 Family History Medical History Relation Comments Cancer Father Kidney disease Neg Hx Nephrolithiasis Neg Hx Relation Status Comments Father Social History Tobacco Use Types Packs/Day Years Used Date Smoking Tobacco: Former Smokeless Tobacco: Never Alcohol Use Standard Drinks/Week Comments Not Currently 0 (1 standard drink = 0.6 oz pur e alcohol) Sex and Gender Information Value Date Recorded Sex Assigned at Not on file Gender Identity Not on file Sexual Orientation Not on file Last Filed Vital Signs Vital Sign Reading Time Taken Comments Blood Pressure 132/78 06/05/2022 1:41 PM CDT Pulse - - Temperature 35.6 C (96.1 F) 06/05/2022 1:41 PM CDT Respiratory Rate 18 06/05/2022 1:41 PM CDT Oxygen Saturation - - Inhaled Oxygen Concentration - - Weight 109 kg (240 lb) 06/05/2022 1:41 PM CDT Height 167.6 cm (5' 6 ) 06/05/2022 1:41 PM CDT Body Mass Index 38.74 06/05/2022 1:41 PM CDT Plan of Treatment Health Maintenance Due Date Last Done Comments Pneumococcal PPSV23/PCV13 65 + Years / Low and Medium Risk (1 of 4 - PCV) 2000 COVID-19 Vaccine (2 - 2023-2 5 season) 2024 07/20/2021 Influenza Vaccine (#1) 2024 , 06/29/2016, 07/03/2015, Additional history exists Care Teams Medical Transcription Editor Relationship Specialty Start Date End Date Irving Montes MD [address] [place] [address] PCP - General Family Medicine 09/06/19
--- OUTSIDE RECORDS SUMMARY | 2024-12-02 10:49 | XMS_ITS | Data Portability ---
Author Organization [place] - [employer], Main Office Address [address] [place] [address] Care Team Providers Care Product Development Engineer Name Role Phone JORGE L APODACA Primary Care Provider JORGE L APODACA Referring Provider Assessment Encounter Date Assessment Date Assessment LastModified by Organization Details LastModified Time 12/05/2022 12/05/2022 Patient has dojy-ya-uuxn arthritis both knees she really would need to be knee replacement but for medical condition she can have 1 she has grade 3 cut kidney failure and is unwilling to consider dialysis or kidney transplant. I told her that if I would operate I would probably room to kidney completely and all I can do is a shot of cortisone and maybe she prednisone pills. she is going to check with her trencher driver to see if she can take the prednisone pills. I will see her back every 3 or 4 months for injections if she requires discussed. Her medical problems and complications occur include kidney failure morbid obesity and some cardiac issues. roshan Not available 12/05/2022 14:14:17 02/06/2023 02/06/2023 Patient returns knee pain bilaterally. She has bucu-ni-bgjf arthritis of her knees. She is not a surgical candidate so she gets injections every 3 months or so pain is worse with activity somewhat relieved by rest she has predominantly in a chair now she has motion from about 5-105 degrees with pain at the extremes. I injected her with 20 mg Kenalog 4 cc 1% lidocaine knee I will see her back on an as-needed basis she is in acute kidney failure she is told her to Primary care doctor about whether to have dialysis or not. She does not want to and I understand. roshan Not available 02/06/2023 13:35:51 Plan of Treatment Reminders Order Date Submit Date Provider Last Modified By Organization Details Last Modified Time Details Appointments None recorded. Lab None recorded. Referral None recorded. Procedures injection/a spiration joint/bursa (PROC) - in office procedure, administere d by provider 2022 023 [email or web address] In-Office Order, Internal Use Only DO Not Attach Compendium DO Not Attach Compendium, Do Not Delete/merge, [id number] 13:15:49 injection/a spiration joint/bursa (PROC) - in office procedure, administere d by provider 2022 023 [email or web address] In-Office Order, Internal Use Only DO Not Attach Compendium DO Not Attach Compendium, Do Not Delete/merge, 13:52:27 Surgeries None recorded. Imaging XR, knee 2022 023 [email or web address] [facility] [place], [address] [facility] [address], [place], [address], 3 14:38:34 Medication Orders Kenalog 10 mg/mL suspension for injection [email or web address] [place] [address], [address] [place] [address], [address], 3 13:17:04 ropivacaine (PF) 5 mg/mL (0.5 %) injection solution [email or web address], [address] [place] [address], [address], 3 13:17:04 Kenalog 10 mg/mL suspension for injection [email or web address], [address] [place] [address], [address], 3 14:03:48 ropivacaine (PF) 5 mg/mL (0.5 %) injection solution 2022 023 [email or web address] Not available 14:51:16 prednisone 10 mg tablets in a dose pack 2022 David [email or web address] [address] [facility], [address] [facility], [place], [address], 14:03:48 Patient TargetsNo targets recorded. Patient InstructionsNo instructions recorded. Reason for Referral None Reported. Results Created Date Observation Date Name Description Value Unit Range Abnormal Flag Note LastModifiedBy Organization Detail LastModifiedTime 03/07/20 22 XR, hip + pelvi s, unila teral , 2 or 3 view No observ ation record ed. [id number] [facility] [place] [address], [place], [address], 11/06/2022 13:32:51 06/27/20 22 XR, knee, 3 view No observ ation record ed. [id number] [facility] [place] [address], [place], [address], 11/06/2022 13:32:51 12/06/19 23 XR, knee No observ ation record ed. [email or web address] [facility] [place] [address], [place], [address], 12/05/2022 14:38:33 Result Notes None recorded. 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 8784539387030 105 Active 2021 Not Available [facility] 3 13:30:19 Bilateral osteoarthr itis of knees 1988234988084 07 Active 2022 Not Available [facility] 3 13:30:19 Pain in left sacroiliac joint 0504397003155 9102 Active 2020 Not Available [facility] 3 13:30:19 Pain in right sacroiliac joint 2688292745655 9107 Active 2020 Not Available [facility] 3 13:30:19 Sprain of sacroiliac ligament 41402044 Active Not Available [facility] 3 13:30:19 Disorder of sacrum 46386633 Active Not Available [facility] 3 13:30:19 Spinal stenosis of lumbar region 09744103 Active Not Available [facility] 3 13:30:20 Lesion of radial nerve 685702544 Active Not Available [facility] 3 13:30:20 Knee joint effusion 310029582 Active Not Available [facility] 3 13:30:20 Lumbar sprain 062916139 Active Not Available [facility] 3 13:30:20 Fall on same level from slipping, tripping or stumbling Active Not Available [facility] 3 13:30:20 Morbid obesity 675886795 Active 2020 Not Available [facility] 3 13:30:20 Osteoarthr itis of knee 879355630 Active Not Available [facility] 3 13:30:20 Fibromyosi tis 27979630 Active Not Available [facility] 3 13:30:20 Low back pain 802156074 Active Not Available [facility] 3 13:30:20 Recurrent dislocatio n of shoulder region 54437547 Active Not Available [facility] 3 13:30:20 Enthesopat hy of hip region 94463222 Active Not Available [facility] 3 13:30:20 Knee pain Active Not Available [facility] 3 13:30:20 Pain of left hip joint 9890245595179 00 Active 2021 Not Available [facility] 3 13:30:20 Trochanter ic bursitis of left hip 3624366535471 03 Active 2020 Not Available [facility] 3 13:30:21 Trochanter ic bursitis of right hip 1470844934072 00 Active 2019 Not Available [facility] 3 13:30:21 Osteoarthr itis of left knee joint 2071914247317 09 Active 2020 Not Available [facility] 3 13:30:21 Osteoarthr itis of right knee joint 7025992790627 00 Active 2020 Not Available [facility] 3 13:30:21 Enthesopat hy of knee 05038918 Active Not Available [facility] 3 13:30:21 Osteoarthr itis 503694816 Active Not Available [facility] 3 13:30:21 Closed fracture of trochanter of femur 808153008 Active Not Available [facility] 3 13:30:21 History of total replacemen t of right hip joint 7371182120989 00 Active 2021 Not Available [facility] 3 13:30:21 Pain of bilateral knee joints 3627199154677 04 Active 2021 Not Available [facility] 3 13:30:22 Lumbosacra l spondylosi s without myelopathy 73800011 Active Not Available [facility] 3 13:30:22 Disorder of bursa of shoulder region 18935778 Active Not Available [facility] 3 13:30:22 Fracture of neck of femur 0614224 Active Not Available [facility] 3 13:30:22 Disorder of coccyx 13202626 Active Not Available [facility] 3 13:30:22 Degenerati ve joint disease of shoulder region 85747077 Active Not Available [facility] 3 13:30:22 Degenerati on of interverte bral disc 32162206 Active Not Available [facility] 3 13:30:22 Pain in limb 32080204 Active Not Available [facility] 3 13:30:22 Problem Notes None recorded. Procedures Surgical History Date Name Laterality Status Provider Name and Address Organization Details Recorded Time 02/07/20 23 Ortho - Cortisone Injection completed Babar Guadarrama MD [address] [place] [address], [facility] [address], [place], [address], [place] [facility] 02/06/2023 13:34:44 12/06/19 23 Ortho - Cortisone Injection completed Babar Guadarrama MD [address] [facility], [place], [address], [place] [facility] 12/05/2022 14:11:16 total replacement of hip completed Not Available [facility] 11/06/2022 13:29:40 Imaging Results Imaging Date Name Status LastModified by Organiz ation Details LastModified Time 06/27/2022 XR, knee, 3 view completed [id number] [facility] [place] [address], [place], [address], 11/06/2022 13:32:51 03/07/2022 XR, hip + pelvis, unilateral , 2 or 3 view completed [id number] [facility] [place] [address], [place], [address], 11/06/2022 13:32:51 12/05/2022 XR, knee completed [email or web address] [facility] [place] [address], [place], [address], 12/05/2022 14:38:33 Procedure Notes None recorded. Medical Equipment None Reported. Allergies Allergen ID Allergen Name Allergen Category Reaction Reaction Severity Criticality Documentation Date Start Date Code Code System Note Provider Name and Address Organization Details Recorded Time 06990 Product containin g penicilli n (product) medicatio n Not available Not available Not available 11/06/2022 17900 8001 SNOMED Not Available [facility] 3 13:32:48 73666 codeine medicatio n Not available Not available Not available 11/06/2022 2670 RxNorm Not Available [facility] 13:32:48 Medications Name Sig Start Date Stop Date Status Note LastModified by Organization Details LastModified Time celecoxib 200 mg capsule TK ONE C PO QD PRN 09/07 completed Not Available Not Available Not Available amoxicillin 500 mg capsule active Not Available Not Available Not Available furosemide 40 mg tablet TK 1 T PO D active Not Available Not Available No t Available metolazone 2.5 mg tablet TK 1 T PO D 12/20 completed Not Available Not Available Not Available methocarbam ol 500 mg tablet 12/20 completed Not Available Not Available Not Available potassium chloride ER 10 mEq capsule,ext ended release 12/05 completed Not Available Not Available Not Available prednisone 10 mg tablet TAKE ONE TABLET BY MOUTH THREE TIMES A DAY FOR 3 DAYS WITH FOOD THEN 1 TABLET TWICE A DAY FOR 2 DAYS THEN TAKE ONE (1) TABLET ONCE FOR 1 DAY UNTIL ALL GONE active Not Available Not Available No t Available nitrofurant oin macrocrysta l 50 mg capsule 09/07 completed Not Available Not Available Not Available atorvastati n 20 mg tablet 09/07 completed Not Available Not Available Not Available ipratropium 0.5 mg-albutero l 3 mg (2.5 mg base)/3 mL nebulizatio n soln 09/07 completed Not Available Not Available Not Available bumetanide 2 mg tablet active Not Available Not Available Not Available tizanidine 2 mg tablet 09/07 completed Not Available Not Available Not Available clindamycin HCl 300 mg capsule 09/07 completed Not Available Not Available Not Available albuterol sulfate 2.5 mg/3 mL (0.083 %) solution for nebulizatio n USE 1 VIAL VIA NEB QID PRN 09/07 completed Not Available Not Available Not Available citalopram 40 mg tablet TK 1 T PO D 12/20 completed Not Available Not Available Not Available loperamide 2 mg capsule 12/20 completed Not Available Not Available Not Available polyethylen e glycol 3350 17 gram oral powder packet 09/07 completed Not Available Not Available Not Available triamcinolo ne acetonide 0.5 % topical cream 09/07 completed Not Available Not Available Not Available atorvastati n 10 mg tablet active Not Available Not Available Not Available benazepril 5 mg tablet TK 1 T PO D 09/07 completed Not Available Not Available Not Available azithromyci n 250 mg tablet active Not Available Not Available Not Available ibuprofen 800 mg tablet 09/07 completed Not Available Not Available Not Available alprazolam 1 mg tablet TK 1 T PO QID PRN active Not Available Not Available No t Available clarithromy yadiel 500 mg tablet 12/20 completed Not Available Not Available Not Available hydrocodone 5 mg-acetamin ophen 325 mg tablet 09/07 completed Not Available Not Available Not Available ondansetron HCl 8 mg tablet 12/20 completed Not Available Not Available Not Available sucralfate 1 gram tablet 09/07 completed Not Available Not Available Not Available phenazopyri dine 200 mg tablet 12/20 completed Not Available Not Available Not Available ondansetron HCl 4 mg tablet active Not Available Not Available Not Available prednisone 20 mg tablet 12/05 completed Not Available Not Available Not Available metolazone 5 mg tablet TK 1 T PO QD active Not Available Not Available No t Available clobetasol 0.05 % topical cream 09/07 completed Not Available Not Available Not Available clindamycin HCl 150 mg capsule active Not Available Not Available Not Available hydralazine 25 mg tablet active Not Available Not Available Not Available potassium chloride ER 10 mEq tablet,exte nded release active Not Available Not Available Not Available clopidogrel 75 mg tablet active Not Available Not Available Not Available ciprofloxac in 250 mg tablet 09/07 completed Not Available Not Available Not Available amlodipine 5 mg tablet active Not Available Not Available Not Available trimethopri m 100 mg tablet 09/07 completed Not Available Not Available Not Available acyclovir 400 mg tablet 12/20 completed Not Available Not Available Not Available ciprofloxac in 500 mg tablet active Not Available Not Available Not Available sulfamethox azole 800 mg-trimetho prim 160 mg tablet active Not Available Not Available Not Available tramadol 50 mg tablet TK 1 TO 2 TS PO Q 6 H PRN 12/20 completed Not Available Not Available Not Available spironolact one 25 mg tablet active Not Available Not Available Not Available levothyroxi ne 75 mcg tablet active Not Available Not Available Not Available prednisone 10 mg tablets in a dose pack Take 1 tab by mouth, 3 times a day for 3 daysTake 1 tab by mouth 2 times a day for 2 daysTake 1 tab by mouth once a day for 1 day 2022 active Not Available Not Available Not Avai lable oxycodone-a cetaminophe n 5 mg-325 mg tablet active Not Available Not Available No t Available alprazolam 0.5 mg tablet TK 1 T PO FOUR TIMES A DAY active Not Available Not Available No t Available citalopram 20 mg tablet 12/20 completed Not Available Not Available Not Available potassium chloride ER 20 mEq tablet,exte nded release(par t/cryst) active Not Available Not Available Not Available dicyclomine 20 mg tablet TK 1 T PO TID FOR STOMACH PAIN 09/07 completed Not Available Not Available Not Available OneTouch Ultra Test strips 09/07 completed Not Available Not Available Not Available Kenalog 10 mg/mL suspension for injection Take 40 mg by injection route. [address] [facility]: [phone] Not Available Not Available Not Available amlodipine 10 mg tablet TK 1 T PO QD 12/20 completed Not Available Not Available Not Available benzonatate 100 mg capsule 09/07 completed Not Available Not Available Not Available econazole nitrate 1 % topical cream active Not Available Not Available Not Available cephalexin 500 mg capsule 09/07 completed Not Available Not Available Not Available cyanocobala min (vit B-12) 1,000 mcg/mL injection solution 12/20 completed Not Available Not Available Not Available esomeprazol e magnesium 40 mg capsule,del ayed release TK 1 C PO QD active Not Available Not Available No t Available nitrofurant oin macrocrysta l 100 mg capsule active Not Available Not Available Not Available lansoprazol e 30 mg capsule,del ayed release 09/07 completed Not Available Not Available Not Available mometasone 50 mcg/actuati on nasal spray 09/07 completed Not Available Not Available Not Available montelukast 10 mg tablet TK 1 T PO QPM active Not Available Not Available No t Available hydroxyzine HCl 25 mg tablet 09/07 completed Not Available Not Available Not Available hydralazine 50 mg tablet active Not Available Not Available Not Available hydrochloro thiazide 25 mg tablet 09/07 completed Not Available Not Available Not Available furosemide 20 mg tablet 09/07 completed Not Available Not Available Not Available alprazolam 2 mg tablet 12/20 completed Not Available Not Available Not Available clobetasol 0.05 % topical ointment 09/07 completed Not Available Not Available Not Available irbesartan 150 mg tablet active Not Available Not Available Not Available cefuroxime axetil 500 mg tablet 09/07 completed Not Available Not Available Not Available metolazone 10 mg tablet 12/20 completed Not Available Not Available Not Available methylpredn isolone 4 mg tablets in a dose pack 09/07 completed Not Available Not Available Not Available albuterol sulfate HFA 90 mcg/actuati on aerosol inhaler active Not Available Not Available Not Available Vitamin D2 1,250 mcg (50,000 unit) capsule active Not Available Not Available Not Available cefdinir 300 mg capsule 09/07 completed Not Available Not Available Not Available fluticasone propionate 50 mcg/actuati on nasal spray,suspe nsion 09/07 completed Not Available Not Available Not Available colestipol 1 gram tablet TK 1 T PO QD 09/07 completed Not Available Not Available Not Available dicyclomine 10 mg capsule active Not Available Not Available Not Available calcitriol 0.25 mcg capsule active Not Available Not Available Not Available irbesartan 300 mg tablet TK 1 T PO D active Not Available Not Available No t Available Estrace 0.01% (0.1 mg/gram) vaginal cream 09/07 completed Not Available Not Available Not Available escitalopra m 10 mg tablet active Not Available Not Available Not Available escitalopra m 20 mg tablet active Not Available Not Available Not Available cyclobenzap rine 5 mg tablet 09/07 completed Not Available Not Available Not Available nitrofurant oin monohydrate /macrocryst als 100 mg capsule 12/20 completed Not Available Not Available Not Available eszopiclone 3 mg tablet 09/07 completed Not Available Not Available Not Available Kelly Santiago ra Thin 09/07 completed Not Available Not Available Not Available Flovent HFA 44 mcg/actuati on aerosol inhaler 12/20 completed Not Available Not Available Not Available Flovent HFA 110 mcg/actuati on aerosol inhaler active Not Available Not Available Not Available Nyamyc 100,000 unit/gram topical powder 12/05 completed Not Available Not Available Not Available chlorhexidi ne gluconate 0.12 % mouthwash 09/07 completed Not Available Not Available Not Available lidocaine (PF) 10 mg/mL (1 %) injection solution In office injection administe red by the provider 12/[address] [facility]: [phone] Not Available Not Available Not Available lidocaine (PF) 20 mg/mL (2 %) injection solution Take 160 mg by injection route. active Not Available Not Available No t Available Zostavax (PF) 19,400 unit/0.65 mL subcutaneou s suspension 09/07 completed Not Available Not Available Not Available fluocinolon e acetonide oil 0.01 % ear drops active Not Available Not Available No t Available diclofenac 1 % topical gel 09/07 completed Not Available Not Available Not Available Dexilant 60 mg capsule, delayed release 09/07 completed Not Available Not Available Not Available ropivacaine (PF) 5 mg/mL (0.5 %) injection solution Take 40 mg by injection route. [address] [facility] [phone] Not Available Not Available Not Available Fluzone High-Dose 2013- (PF) 180 mcg/0.5 mL intramuscul ar syringe active Not Available Not Available N ot Available Fluarix Quad 2696-0736 (PF) 60 mcg (15 mcg x 4)/0.5 mL IM syringe 09/07 completed Not Available Not Available Not Available Viberzi 75 mg tablet 09/07 completed Not Available Not Available Not Available Linzess 72 mcg capsule 12/20 completed Not Available Not Available Not Available Fluad 2016- 65yr up(PF)45 mcg(15 mcgx3)/0.5 mL intramuscul ar syringe ADM 0.5ML IM UTD 09/07 completed Not Available Not Available Not Available Trelegy Ellipta 100 mcg-62.5 mcg-25 mcg powder for inhalation active Not Available Not Available N ot Available Zenpep 40,000 unit-126,00 0 unit-168,00 0 unit capsule,del ayed release TAKE 2 CAPSULES BY MOUTH WITH MEALS AND 1 CAPSULE WITH SNACKS FOUR TIMES DAILY active Not Available Not Available No t Available Fluzone High-Dose (PF) 180 mcg/0.5 mL intramuscul ar syringe ADM 0.5ML IM UTD 12/20 completed Not Available Not Available Not Available Vitals Date Recorded Body mass index (BMI) Body height Pain severity - 0-10 verbal numeric rating [Score] - Reported Body weight Provider Name and Address Organization Details Last Updated DateTime 03/07/2022 37.8 kg/m2 167.64 cm 7 287353.61 g Not Available [facility] 11/06/2022 13:29:46 Date Recorded Body mass index (BMI) Body height Body weight Provider Name and Address Organization Details Last Updated DateTime 06/27/2022 37.8 kg/m2 167.64 cm 851336.61 g Not Available [facility] 11/06/2022 13:29:46 Date Recorded Body mass index (BMI) Body height Body weight Provider Name and Address Organization Details Last Updated DateTime 10/03/2022 38.7 kg/m2 167.64 cm 476021.17 g Not Available [facility] 11/06/2022 13:29:46 Date Recorded Body height Body mass index (BMI) Body weight Provider Name and Address Organization Details Last Updated DateTime 12/05/2022 167.64 cm 37.8 kg/m2 362267.61 g Maryellen SingerENMA vargas [facility] 12/05/2022 13:33:03 Date Recorded Body height Body mass index (BMI) Body weight Provider Name and Address Organization Details Last Updated DateTime 02/06/2023 167.64 cm 37.8 kg/m2 969249.61 g Maryellen Singersam [employer] [facility] 02/06/2023 13:10:53 Social History Question Answer Notes LastModified by Organizat ion Details LastModified Time Tobacco Smoking Status Former Smoker Maryellen Carlos EduardoENMA vargas [facility] 02/06/2023 13:12:01 What Is Your Level Of Alcohol Consumption? Occasional [id number] Information not available 11/06/2022 When Did You Quit Smoking? 16+yearsaura summers 30 Years Ago [email or web address] Information not available 02/06/2023 Sex: Unknown Functional Status None recorded. Mental Status None recorded. Family History Relationship Description Onset Age of this Age Resolved Age Notes LastModified by Organization Details LastModified Time Maternal Grandmother Heart disease [id number] Not available 11/06/2022 13:29:40 Father Family history of malignant neoplasm [id number] Not available 11/06/2022 13:29:40 Father History of hypertension [id number] Not available 11/06/2022 13:29:40 Mother History of hypertension [id number] Not available 11/06/2022 13:29:40 Medical History Condition Response ARTHRITIS Y ULCERS Y USE OF BLOOD THINNERS Y OSTEOPOROSIS Y OTHER # 1 Y URINARY/BLADDER/KIDNEY PROBLEMS Y LUNG DISEASE/DISORDER Y HEART ARRHYTHMIA Y OSTEOARTHRITIS Y COPD Y STROKE/TIA Y Gynecological HistoryNo gynecological history recorded. Obstetrics History GPAL:G 0 P 0 0 0 0 Past Encounters Encounter ID Performer Location Encounter Start Date Encounter Closed Date Diagnosis/Indication Diagnosis SNOMED-CT Code Diagnosis ICD10 Code Diagnosis Note [id number] [facility] [place] [address] [place] [address] 12/05/2020 00:00:00 12/05/2020 15:05:50 [id number] [facility] [place] [address] [place] [address] 07/05/2021 00:00:00 07/05/2021 13:31:46 [id number] [facility] [place] [address] [place] [address] 12/20/2021 00:00:00 12/20/2021 11:36:36 [id number] [facility] [place] [address] [place] [place] [address] 03/07/2022 00:00:00 03/07/2022 11:57:50 [id number] [facility] [address] [place] [address] 06/27/2022 00:00:00 06/27/2022 11:31:16 [id number] [facility] [address] [place] [address] 10/03/2022 00:00:00 10/03/2022 11:09:21 [id number] Babar Guadarrama MD [facility] [address] [place] [address] 12/05/2022 13:25:51 12/05/2022 14:28:54 Bilateral osteoarthritis of knees [id number] 00832 M17.0 Low back pain [id number] M54.50 Trochanter ic bursitis of left hip [id number] 41700 M70.62 Trochanter ic bursitis of right hip [id number] 94131 M70.61 Pain of le ft hip joint [id number] 51029 M25.552 [id number] Babar Guadarrama MD [facility] [address] [place] [address] 02/06/2023 12:52:16 02/06/2023 14:05:35 Bilateral osteoarthritis of knees [id number] 68659 M17.0 Low back pain [id number] M54.50 Trochanter ic bursitis of left hip [id number] 01847 M70.62 Trochanter ic bursitis of right hip [id number] 98756 M70.61 Pain of le ft hip joint [id number] 75539 M25.552 Health Concerns Section Related Observation LastModified by Organization Detai ls LastModified Time None Recorded Concern Status LastModified by Organization Details LastModified Time None Recorded Advance Directives Directive None Recorded Payers Encounter Date Sequence Insurance Name Policy Number Policy Phelan Covered Member ID Phelan Member ID Guarantor Name 12/05/2022 1 [place] Lucille M Layo [id number] Lucille M Layo 12/05/2022 2 [facility] [employer] [employer] [place]) 104 Lucille M Layo [id number] Lucille Vasques 02/06/2023 1 [place] Lucille Vasques [id number] Lucille Vasques 02/06/2023 2 [place] ([place] 104 Lucille M Layo [id number] Lucille Vasques Notes Date Note Type Note Provider Name and Address Organization Details Recorded Time 03/07/2022 text/html Hip(s)Reported bypatient.Locatio n:left; lateral Quality:throbbing ; superficial; frequent Severity:moderate Duration:continuo us since onset Timing:occasional Context:overuse Alleviating Factors:lying down; heat; ice; rest; exercise; limited weight bearing Aggravating Factors:standing; walking; bending/squatting Associated Symptoms:no numbness; no redness; no ecchymosis; no catching/locking; no popping/clicking; no buckling; no grinding; no instability; no radiation down leg; no drainage; no fever; no chills; no weight loss; no change in bowel/bladder habits;weakness;s welling Not Available [facility] 03/07/2022 11:57:50 12/05/2022 text/html Patient returns status post arthritis both knees she has [id number] arthritis however she has kidney failure at this time and is not a surgical candidate. I told her there is really not much else I can do other than occasional cortisone shots. Babar Guadarrama MD [address], [place], [address], [facility] 12/05/2022 14:38:39 02/06/2023 text/html Patient returns status post arthritis both knees she has [id number] arthritis however she has kidney failure at this time and is not a surgical candidate. I told her there is really not much else I can do other than occasional cortisone shots. Babar Guadarrama MD [address], [place], [address], [facility] 02/06/2023 13:36:19 OBGyn Episode No OBEpisode recorded.
--- OUTSIDE RECORDS SUMMARY | 2024-12-02 10:49 | XMS_ITS | Clinical Summary ---
Author Organization [facility] Address [address] 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 This disclosure is being madepursuant to the Care Everywhere program and may not contain all information available regarding this patient. Last updated 18.[facility] Social History Tobacco Use Types Packs/Day Years Used Date Smoking Tobacco: Never Assessed Sex and Gender Information Value Date Recorded Sex Assigned at Not on file Gender Identity Not on file Sexual Orientation Not on file Plan of Treatment Health Maintenance Due Date Last Done Comments BONE DENSITY TESTING 1935 MEDICARE AWV 12 MONTHS 1935 DTAP/TDAP/TD VACCINES (1 - Tdap) 1954 PNEUMOCOCCAL VACCINE 50+ (1 of 1 - PCV) 1985 ZOSTER VACCINE (1 of 2) 1985 Respiratory Syncytial Virus (RSV) Vaccine Pt: or over 60 yrs (1 - 1-dose 75+ series) 2010 COVID-19 VACCINE (2 - season) 2024 07/20/2021 INFLUENZA VACCINE (#1) 2024 0, 06/08/2019, 05/25/2019, Additional history exists DEPRESSION SCREENING 09/08/2024 HEPATITIS B VACCINE Aged Out No longe r eligible based on patient's age to complete this topic HIB VACCINE Aged Out No longer eligi ble based on patient's age to complete this topic HPV VACCINE Aged Out No longer eligi ble based on patient's age to complete this topic MENINGOCOCCAL (Group B) VACCINE SHARED DECISION-MAKING Aged Out No longer eligible based on patient's age to complete this topic MENINGOCOCCAL GROUPS A/C/Y/W VACCINE Aged Out No longer eligible based on patient's age to complete this topic
--- OUTSIDE RECORDS SUMMARY | 2024-12-02 10:49 | XMS_ITS | Referral Summary ---
Author Organization [facility] [place] [address] [place] [address] 162 [address] [place] [address] Care Team Providers Care Production Control Coordinating Clerk Name Role Phone Irving Montes MD Primary Care Provider [phone] Encounters Date Type Department Care Team Description 11/19/2024 Orders Only [facility] Medical Group Vascular and Vein Surgery [facility] [address] [place] [phone] Los Escobar MD Occlusion of right carotid artery (Primary Dx); Stenosis of left carotid artery 11/18/2024 11:00 AM CDT Office Visit [facility] Medical [facility] Vascular and Vein Surgery [facility] [address] [place] [address] Polina Santiago PA Occlusion and stenosis of bilateral carotid arteries (Primary Dx); Mixed hyperlipidemia; Primary hypertension 11/03/2024 Results Follow-Up [facility] Medical Group Cardiology at [address] [place] [phone] Jeanie Gasca MD 11/02/2024 10:00 AM BILL HIKER Ancillary Procedure [facility] Medical Group Vascular and Vein Surgery at [address] [place] [phone] Bilateral carotid artery stenosis 10/28/2024 2:00 PM BILL HIKER Office Visit [facility] Medical [facility] Cardiology [address] [facility] [address] [place] [address] Jeanie Gasca MD Chronic heart failure with preserved ejection fraction (HCC) (Primary Dx); 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, 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, with heart failure (HCC); Atherosclerosis of napaimute artery of both lower extremities with intermittent claudication; Mixed hyperlipidemia; Bilateral carotid artery stenosis 10/26/2024 Home Care Visit [address] [address] [address] [place] [address] Amanda Clark, MORIAH SN TRIAGE ENCOUNTER 10/22/2024 8:30 AM BILL HIKER Home Care Visit [address] [address] [address] [place] [address] Christine Sherman, PT PT OASIS DISCHARGE 10/20/2024 9:00 AM BILL HIKER Home Care Visit [address] [address] [address] [place] [address] Chelo Davis RN SN DISCIPLINE DISCHARGE 10/14/2024 12:45 PM BILL HIKER Orders Only [facility] Medical Office Building 2 Wound Care [address] [facility] [address] [place] [address] 10/13/2024 8:30 AM BILL HIKER Home Care Visit [address] [place] [address] Christine Sherman, PT PT HOME VISIT 10/11/2024 8:30 AM BILL HIKER Home Care Visit [address] [place] [address] Christine Sherman, PT PT REASSESSMENT 10/07/2024 Home Care Visit [address] [place] [address] Irene Acosta, OT TELEPHONE ENCOUNTER 10/07/2024 Home Care Visit [address] [place] [address] Irene Acosta, OT TELEPHONE ENCOUNTER 10/06/2024 8:00 AM BILL HIKER Home Care Visit [address] [place] [address] Hermila Norton LPN SN HOME VISIT 10/04/2024 8:30 AM BILL HIKER Home Care Visit [address] [place] [address] Christine Sherman, PT PT HOME VISIT 10/01/2024 9:00 AM BILL HIKER Home Care Visit [address] [place] [address] Christine Sherman, PT PT HOME VISIT 10/01/2024 8:00 AM BILL HIKER Home Care Visit [address] [place] [address] Chelo Davis RN SN HOME VISIT 09/30/2024 Home Care Visit [address] [place] [address] Irene Acosta, OT TELEPHONE ENCOUNTER 09/27/2024 Home Care Visit [address] [place] [address] Christine Sherman, PT TELEPHONE ENCOUNTER 09/24/2024 8:30 AM BILL HIKER Home Care Visit [address] [place] [address] Christine Sherman, PT PT INITIAL EVALUATION 09/23/2024 Home Care Visit [address] [place] [address] Irene Acosta, OT TELEPHONE ENCOUNTER 09/22/2024 10:30 AM BILL HIKER Home Care Visit [address] [place] [address] Hermila Norton LPN SN HOME VISIT 09/20/2024 Home Care Visit [address] [place] [address] Amanda Clark, RN SN TRIAGE ENCOUNTER 09/17/2024 Plan of Care Documentation [address] [address] [address] [place] [address] 09/17/2024 9:00 AM BILL HIKER Home Care Visit [address] [address] [address] [place] [address] Jana Graham SN OASIS RESUMPTION OF CARE 09/15/2024 Telephone [facility] Home Care Services [address] [place] [address] [address] [place] [phone] Garth Barahona, MORIAH 09/07/2024 3:45 PM BILL HIKER - 09/15/2024 5:00 PM BILL HIKER Hospital Encounter [address] [address] [address] [place] [address] Jeanie Campos MD Mecker, Robert W. Jr., MD Olvera, MD Cecy Cook Sobhana Krishna, MD Paruchuri, Tharun, MD Mourad, Ibrahim, MD Rectal pain (Primary Dx); Anemia, unspecified type; COLIN (acute kidney injury); Cellulitis of left leg Discharge Disposition: Discharge to alf facility 09/10/2024 12:49 PM BILL HIKER Anesthesia Event [facility] OR [address] [place] [address] Devan Bajwa MD 09/10/2024 1:05 PM BILL HIKER - 09/10/2024 2:20 PM BILL HIKER Surgery [facility] OR [address] [place] [address] Luis Alberto Matthews MD INCISION AND DRAINAGE ABSCESS - TIGRE-RECTAL 09/08/2024 Home Care Visit [address] [address] [address] [place] [address] Christine Sherman, PT PT OASIS TRANSFER W/OUT DC 09/06/2024 Home Care Visit [address] [address] [address] [place] [address] Marlys Olmedo, RN WOCN CONSULT 09/04/2024 Home Care Visit [address] [place] [address] Ozzie Flynn RN SN TRIAGE ENCOUNTER 09/04/2024 1:50 PM BILL HIKER - 09/04/2024 11:59 PM BILL HIKER [place] [address] Discharge Disposition: Discharge to home or self care 09/04/2024 12:00 PM BILL HIKER Home Care Visit [address] [place] [address] Cheryl Damon RN SN HOME VISIT 09/03/2024 10:00 AM BILL HIKER Home Care Visit [address] [address] [address] [place] [address] Irene Acosta, OT OT INITIAL EVALUATION 09/03/2024 9:00 AM BILL HIKER Home Care Visit [address] [place] [address] Christine Sherman, PT PT INITIAL EVALUATION from Last 3 Months Allergies Active Allergy Reactions Criticality Noted Date Comments Codeine Doxycycline Hives Medium 08/17/2024 Niacin Penicillamine Unknown 02/18/2019 Penicillins Rash High 04/27/2018 Medications montelukast (SINGULAIR) 10 mg tabletIndicatio ns:Seasonal Allergic Rhinitis take 1 tablet (10MG) by oral route every day in the evening [address] (NexIUM) 40 mg capsuleIndicati ons:stomach take 1 capsule by oral route every day 0 0 5 Active clopidogrel (PLAVIX) 75 mg tabletIndicatio ns:myocardial infarction prevention,stro ke prevention Take 1 tablet (75 mg total) by mouth every evening 8 Active levothyroxine (SYNTHROID) 75 mcg tabletIndicatio ns:hypothyroidi sm Take 1 tablet (75 mcg total) by mouth early childhood special educator before breakfast 1 Active ondansetron (ZOFRAN) 4 mg tabletIndicatio ns:nausea/vomit ing Take 1 tablet by mouth every 8 (eight) hours as needed for nausea or vomiting Active hydrALAZINE (APRESOLINE) 50 mg tabletIndicatio ns:chronic heart failure,hyperte nsion Take 1 tablet (50 mg total) by mouth 2 (two) times a day For BP > 145/90 3 Active bumetanide (BUMEX) 2 mg tablet Take 1 tablet (2 mg total) by mouth daily Active irbesartan (AVAPRO) 150 mg tablet Take 1 tablet (150 mg total) by mouth every evening Active amLODIPine (NORVASC) 5 mg tabletIndicatio ns:hypertension Take 1 tablet (5 mg total) by mouth daily 3 Active ALPRAZolam (XANAX) 0.5 mg tabletIndicatio ns:Generalized Anxiety Disorder Take 1 tablet (0.5 mg total) by mouth 4 (four) times a day Max of 2 mg daily Active multivit,calc,m ins/iron/folic (THERA M PLUS, FERROUS FUMARAT, ORAL)Indication s:supplement, deficiency Take 1 tablet by mouth daily Active calcitRIOL (ROCALTROL) 0.25 mcg capsule Take 1 capsule (0.25 mcg total) by mouth 3 (three) times a week Take 3 times weekly on Friday, Friday, and Friday Active albuterol 2.5 mg /3 mL (0.083 %) nebulizer solutionIndicat ions:SOB Take 3 mL by nebulization every 4 (four) hours as needed for wheezing or shortness of breath Active atorvastatin (LIPITOR) 10 mg tabletIndicatio ns:hyperlipidem ia Take 1 tablet (10 mg total) by mouth every evening Active mometasone (ASMANEX) 100 mcg/actuation inhaler Inhale 1 puff nightly Rinse mouth with water after use. Do not swallow. Active escitalopram (LEXAPRO) 10 mg tabletIndicatio ns:major depressive disorder Take 1 tablet (10 mg total) by mouth daily Active Saccharomyces boulardii (FLORASTOR) 250 mg capsule Take 1 capsule (250 mg total) by mouth 2 (two) times a day Active spironolactone (ALDACTONE) 25 mg tabletIndicatio ns:hypertension Take 1 tablet (25 mg total) by mouth daily 4 Active miconazole 2 % powderIndicatio ns:cutaneous candidiasis Apply topically 2 (two) times a day 70 g 4 Active Additional Information Patient not taking.Reported on 11/18/2024 senna-docusate (PERICOLACE) 8.6-50 mgIndications:c onstipation Take 1 tablet by mouth 2 (two) times a day 30 tablet 4 Active HYDROmorphone (DILAUDID) 2 mg tabletIndicatio ns:Severe Pain Take 1 tablet (2 mg total) by mouth every 8 (eight) hours as needed for pain 4 Active acetaminophen (TYLENOL) 500 mg tabletIndicatio ns:Fever,Pain Take 1 tablet (500 mg total) by mouth every 6 (six) hours as needed for pain Active white petrolatum-mine ral oiL (EUCERIN) creamIndication s:skin irritation Apply topically daily 454 g 4 Active Additional Information Patient not taking.Reported on 11/18/2024 ALPRAZolam (XANAX) 1 mg tabletIndicatio ns:anxiety Take 1 mg by mouth 3 (three) times a day. [id number] Indications: anxious Active ALPRAZolam (XANAX) 1 mg tabletIndicatio ns:Anxiety with Depression Take 1 mg by mouth 3 (three) times a day. RX: [id number] Indications: anxiousness associated with depression 5 Active Active Problems Problem Noted Date Diagnosed Date Occlusion and stenosis of bilateral carotid ivette rosa 11/18/2024 Assessment & Plan (11/18/2024 4:20 PM CDT): Patient continues to be asymptomatic regarding stable moderate left ICA stenosis. Patient with questionable distal occlusion right ICA which is new compared to previous study. Fortunately this continues to be asymptomatic. Will hold on any surgical or procedural intervention at this point. Patient to follow up in the office in 1 year with repeat bilateral carotid artery duplex Anemia 09/08/2024 Rectal pain 09/07/2024 Cellulitis of left leg 08/19/2024 Rash 07/22/2024 Cellulitis of lower extremity, unspecified later ality 05/08/2023 COLIN (acute kidney injury) 05/08/2023 Hyperkalemia 05/08/2023 Sepsis without acute organ dysfunction Mixed hyperlipidemia 10/18/2021 Other emphysema 10/18/2021 Chronic heart failure with preserved ejection fr action 07/13/2020 Stage 3a chronic kidney disease 07/13/2020 Assessment & Plan (11/09/2020 6:57 PM BILL HIKER): Impression: Chronic kidney disease which is followed by outside institution outside property agent. Patient wishes to have 2nd opinion and to combine care at our hospital. Plan: Referral to [facility] [place] for further evaluation of her chronic kidney disease. Chronic eczematous otitis externa of both ears 0 03/30/2020 Other otitis externa, unspecified ear 03/30/2020 Hypertension 02/19/2019 Overview (02/19/2019): Hypertension Assessment & Plan (11/09/2020 6:55 PM BILL HIKER): Impression: Stable chronic hypertension. Plan: Medications reviewed and recommend continuing daily antihypertensive regimen as directed by patient's primary care physician. Assessment & Plan (02/19/2019 1:16 PM CDT): Stable hypertension control with use of medications. Plan: Continue management as per primary care provider. Bilateral lower extremity edema 02/19/2019 Assessment & Plan (11/09/2020 6:56 PM BILL HIKER): Impression: Chronic bilateral lower extremity edema that waxes and wanes. Underlying etiology is likely multifactorial including venous disease, lymphedema, obesity. Plan: Daily compression regimen with medical grade knee-high compression stockings 15-20 mm mercury in strength with leg elevation p.r.n.. Assessment & Plan (02/19/2019 1:16 PM CDT): Swelling likely associated with feet being in the dependent position, and activity. Plan: Educated patient on the importance of utilizing compression therapy and leg elevation for management symptoms. Low back pain 02/18/2019 Osteoarthritis of knee 02/18/2019 Spinal stenosis of lumbar region 02/18/2019 Atherosclerosis of napaimute ar sandra of both lower extremities with intermittent claudication 08/24/2018 Pain in both lower extremities 08/18/2018 Stenosis of carotid artery 07/22/2016 Overview (12/13/2016): Carotid stenosis, asymptomatic, right Assessment & Plan (11/09/2020 6:59 PM BILL HIKER): Impression: Stable asymptomatic bilateral internal carotid artery stenoses. Plan: Recommend ongoing risk factor modifications and follow-up in 1 year for re-evaluation and repeat carotid duplex surveillance. Assessment & Plan (02/19/2019 1:16 PM CDT): Stable moderate asymptomatic right carotid artery stenosis. Plan: Follow-up 1 year for re-evaluation with bilateral carotid artery duplex Hypertensive heart disease with congestive heart failure 11/07/2015 Overview (12/13/2016): Hypertensive heart disease with diastolic heart failure Renal artery stenosis of unknown cause 6 Overview (12/13/2016): Right renal artery stenosis Hypertensive heart and kidney disease 04/10/2015 Overview (12/13/2016): Heart failure, unspecified Depression 04/10/2015 Overview (12/13/2016): Depression Gastroesophageal reflux disease 09/26/2014 Overview (12/13/2016): GERD (gastroesophageal reflux disease) Resolved Problems Problem Noted Date Diagnosed Date Resolved Date Cellulitis of right lower extremity 03/20/2023 05/08/2023 Dyslipidemia 04/27/2019 10/18/2021 Dyspnea on exertion 06/20/2015 05/08/20 23 Overview (12/13/2016): BOB (dyspnea on exertion) Immunizations Immunization Administration Dates Next Due Influenza Virus Vaccine Trivalent Mdv 06/21/2017 Influenza, Quadrivalent, Spl it, Intramuscular 07/13/2020,06/08/2019 Influenza, Quadrivalent, Spl it, Preservative Free, Intramuscular 06/29/2016 Influenza, Trivalent, Adjuva nted, Intramuscular 06/21/2017 Influenza, Trivalent, High D ose, Split, Preservative Free, Intramuscular 05/25/2019,06/16/2018,05/16/2014 Influenza, Trivalent, IM (MDV) 05/23/2015,2012 Influenza, Trivalent, Preser vative Free, Intramuscular 07/03/2015 ZOSTER LIVE 07/28/2015 Social History Tobacco Use Types Packs/Day Years Used Date Smoking Tobacco: Former Cigarettes Smokeless Tobacco: Never Tobacco Cessation:Counseling Given: Not Answered Alcohol Use Standard Drinks/Week Comments No 0 (1 standard drink = 0.6 oz pur e alcohol) OASIS D0700: Social Isolation Answer Da te Recorded Frequency of experiencing loneliness or isolatio n Always 10/22/2024 OASIS A1250: Transportation Answer Date Recorded Lack of Transportation (Medical) No 10/22/2024 Lack of Transportation (Non-Medical) No 10/22/2024 Patient Unable or Declines to Respond No 10/22/2024 OASIS B1300: Health Literacy Answer [place] e Recorded Frequency of needing help to read materials from doctor or pharmacy Never 10/22/2024 [facility] Utilities Answer Date Recorded In the past 12 months has th e [employer], gas, oil, or water [employer] threatened to shut off services in your home? No 09/10/2024 Social Connection and Isolat ion Panel [NHANES] Answer Date Recorded In a typical week, how many times do you talk on the phone with family, friends, or neighbors? Twice a week 09/10/2024 How often do you get togethe r with friends or relatives? More than three times a week 09/10/2024 How often do you attend chur ch or holiness services? Never 09/10/2024 Do you belong to any clubs o r organizations such as sabianist groups, unions, fraternal or athletic groups, or school groups? No 09/10/2024 How often do you attend meet ings of the clubs or organizations you belong to? More than 4 times per year 09/10/2024 Are you , , di vorced, , never , or living with a partner? 09/10/2024 AUDIT-C Answer Date Recorded Q1: How often do you have a drink containing alc ohol? Monthly or less 08/19/2024 Q2: How many drinks containi ng alcohol do you have on a typical day when you are drinking? 1 or 2 08/19/2024 Q3: How often do you have si x or more drinks on one occasion? Never 08/19/2024 Overall Financial Resource Strain (CARDIA) Answe r Date Recorded How hard is it for you to pa y for the very basics like food, housing, medical care, and heating? Not hard at all 09/10/2024 PHQ-2 Answer Date Recorded PHQ-2 Total Score 4 08/20/2024 Hunger Vital Sign Answer Date Recorded Within the past 12 months, y ou worried that your food would run out before you got the money to buy more. Never true 09/10/19 25 Within the past 12 months, t he food you bought just didn't last and you didn't have money to get more. Never true 09/10/2024 PRAPARE - Transportation Answer Date Re corded In the past 12 months, has l ack of transportation kept you from medical appointments or from getting medications? No 11/2024 In the past 12 months, has l ack of transportation kept you from meetings, work, or from getting things needed for daily living? No 09/10/2024 Housing Stability Vital Sign Answer Milan e Recorded In the last 12 months, was t here a time when you were not able to pay the mortgage or rent on time? No 05/09/2023 In the last 12 months, how many places have you lived? 1 05/09/2023 In the last 12 months, was t here a time when you did not have a steady place to sleep or slept in a penitentiary (including now)? No 05/09/2023 PHQ-9 Answer Date Recorded PHQ-9 Total Score 7 08/20/2024 Housing Stability Vital Sign Answer [place] e Recorded In the last 12 months, was t here a time when you were not able to pay the mortgage or rent on time? No 09/10/2024 In the past 12 months, how m any times have you moved where you were living? 0 09/10/2024 At any time in the past 12 m onths, were you homeless or living in a penitentiary (including now)? No 09/10/2024 Personal Safety Answer Date Recorded Have you ever been in or are you currently in a harmful physical or emotional relationship or is someone making you feel afraid or unsafe? Denies 09/08/2024 Comments No Sex and Gender Information Value Date Recorded Sex Assigned at Not on file Legal Sex Female 11:52 PM BILL HIKER Gender Identity Not on file Sexual Orientation Not on file Last Filed Vital Signs Vital Sign Reading Time Taken Comments Blood Pressure 150/83 11/18/2024 10:48 AM CDT Pulse 83 11/18/2024 10:48 AM CDT Temperature 36.6 C (97.8 F) 10/22/2024 9:30 AM BILL HIKER Respiratory Rate 18 10/22/2024 9:30 AM BILL HIKER Oxygen Saturation 94% 10/28/2024 2:06 PM BILL HIKER Inhaled Oxygen Concentration - - Weight 106.6 kg (235 lb) 11/18/2024 10:48 AM CDT Height 167.6 cm (5' 6 ) 11/18/2024 10:48 AM CDT Body Mass Index 37.93 11/18/2024 10:48 AM CDT Plan of Treatment Not on file Procedures Procedure Name Priority Date/Time Associated Diagnosis Comments US CAROTIDS DUPLEX BILATERAL Schedule Routine, Read Routine (OP Routine) 11/02/2024 11:22 AM BILL HIKER Bilateral carotid artery stenosis ECG 12-LEAD Routine 10/28/2024 2:38 PM BILL HIKER Chronic heart failure with preserved ejection fraction (HCC) Atherosclerosis of napaimute artery of both lower extremities with intermittent claudication MAGNESIUM Routine 09/15/2024 4:17 AM BILL HIKER EGFR Routine 09/15/2024 4:17 AM BILL HIKER BASIC METABOLIC PANEL Routine 09/15/2024 4:17 AM BILL HIKER CBC WITHOUT DIFFERENTIAL Routine 09/15/2024 4:[address] PELVIS W CONTRAST ED Urgent/IP Urgent 09/14/2024 9:09 AM BILL HIKER EGFR Routine 09/14/2024 3:08 AM BILL HIKER BASIC METABOLIC PANEL Routine 09/14/2024 3:08 AM BILL HIKER CBC WITHOUT DIFFERENTIAL Routine 09/14/2024 3:08 AM BILL HIKER EGFR Routine 09/13/2024 7:30 AM BILL HIKER BASIC METABOLIC PANEL Routine 09/13/2024 7:30 AM BILL HIKER CBC WITHOUT DIFFERENTIAL Routine 09/13/2024 7:30 AM BILL HIKER EGFR Routine 2024 7:21 AM BILL HIKER MAGNESIUM Routine 2024 7:21 AM BILL HIKER BASIC METABOLIC PANEL Routine 2024 7:21 AM BILL HIKER CBC WITHOUT DIFFERENTIAL Routine 2024 7:21 AM BILL HIKER EGFR Routine 09/11/2024 9:25 AM BILL HIKER BASIC METABOLIC PANEL Routine 09/11/2024 9:25 AM BILL HIKER CBC WITHOUT DIFFERENTIAL Routine 09/11/2024 9:25 AM BILL HIKER AEROBIC AND ANAEROBIC CULTURE AND GRAM STAIN Routine 09/10/2024 5:49 PM BILL HIKER MD AN PROCEDURE PLACEHOLDER Routine 09/10/2024 1:03 PM BILL HIKER MD AN ELECTIVE SUPRAGLOTTIC AIRWAY Routine 09/10/2024 1:03 PM BILL HIKER INCISION AND DRAINAGE ABSCESS - TIGRE-RECTAL 09/10/2024 12:49 PM BILL HIKER perirectal abcess EGFR Routine 09/10/2024 3:31 AM BILL HIKER BASIC METABOLIC PANEL Routine 09/10/2024 3:31 AM BILL HIKER CBC WITHOUT DIFFERENTIAL Routine 09/10/2024 3:31 AM BILL HIKER EGFR Routine 09/09/2024 11:39 AM BILL HIKER BASIC METABOLIC PANEL Routine 09/09/2024 11:39 AM BILL HIKER CBC WITHOUT DIFFERENTIAL Routine 09/09/2024 3:42 AM BILL HIKER EGFR Routine 09/08/2024 4:54 AM BILL HIKER CBC WITHOUT DIFFERENTIAL Routine 09/08/2024 4:54 AM BILL HIKER COMPREHENSIVE METABOLIC PANEL Routine 09/08/2024 4:54 AM BILL HIKER BLOOD CULTURE STAT 09/07/2024 5:46 PM BILL HIKER SEPSIS LACTATE WITH REFLEX STAT 09/07/2024 5:45 PM BILL HIKER BLOOD CULTURE STAT 09/07/2024 5:[address] ABDOMEN PELVIS WO CONTRAST ED 09/07/2024 4:53 PM BILL HIKER THYROID FUNCTION CASCADE Add-On 09/07/2024 1:31 PM BILL HIKER LIPID PANEL Add-On 09/07/2024 1:31 PM BILL HIKER MAGNESIUM Add-On 09/07/2024 1:31 PM BILL HIKER HEMOGLOBIN A1C Add-On 09/07/2024 1:31 PM BILL HIKER EGFR STAT 09/07/2024 1:31 PM BILL HIKER DIFFERENTIAL AUTO STAT 09/07/2024 1:3 1 PM BILL HIKER CBC WITH AUTO DIFFERENTIAL STAT 09/07/2024 1:31 PM BILL HIKER COMPREHENSIVE METABOLIC PANEL STAT 09/07/2024 1:31 PM BILL HIKER from Last 3 Months Results * US Carotids Duplex Bilateral (11/02/2024 11:22 AM BILL HIKER) Anatomical Region Laterality Modality Vascular Bilateral Ultrasound 11/02/2024 9:53 AM BILL HIKER Narrative 11/02/2024 6:34 PM BILL HIKER Vascular & Vein Surgery [address] [facility] [place] [address] Carotid Duplex Ultrasound Report Patient Name: LUCILLE SEVILLA MA : 1935 (89y 1m) Study Date: 11/02/2024 9:53:15 AM Gender: F Vacuum System Tester: SUSANNE Location: VV Ref Provider: JEANIE GASCA Quality: Adequate Order Provider: JEANIE GASCA PROCEDURES: Carotid Report: Carotid duplex examination of the extracranial arteries was performed using 2D, color and spectral Doppler. 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 HISTORY: HTN. HLD. TIA. COPD. CKD. Former smoker. COMPARISONS: The previous exam was completed on 12/25/21. Compared to prior there is significant disease progression on the right, mild disease progression on the left. MEASUREMENTS: Right Value Left Value RT Prox CCA PSV 38 cm/sec LT Prox CCA PSV 88 cm/sec RT Prox CCA EDV 6 cm/sec LT Prox CCA EDV 17 cm/sec RT Distal CCA PSV 23 cm/sec LT Distal CCA PSV 79 cm/sec RT Distal CCA EDV 9 cm/sec LT Distal CCA EDV 18 cm/sec RT Prox ICA PSV 20 cm/sec LT Prox ICA PSV 172 cm/sec RT Prox ICA EDV 10 cm/sec LT Prox ICA EDV 41 cm/sec RT Mid ICA PSV 20 cm/sec LT Mid ICA PSV 140 cm/sec RT Mid ICA EDV 14 cm/sec LT Mid ICA EDV 31 cm/sec RT Distal ICA PSV 25 cm/sec LT Distal ICA PSV 120 cm/sec RT Distal ICA EDV 13 cm/sec LT Distal ICA EDV 37 cm/sec RT ECA Prx PSV 76 cm/sec LT ECA Prx PSV 578 cm/sec RT ICA/CCA 0.87 ratio LT ICA/CCA 2.18 ratio Rt Vert Dst PSV 78 cm/sec Lt Vert Dst PSV 42 cm/sec FINDINGS: Rt Common Carotid Artery: The plaque in the right CCA appears to be heterogeneous, calcified and irregular. Multiple segments of shadowing. Rt Internal Carotid Artery: The plaque in the right internal carotid artery appears to be heterogeneous, calcified and irregular. Shadowing plaque noted at proximal segment. Question distal occlusion that is unable to be visualized. Rt External Carotid Artery: Patent right external carotid artery with evidence of atherosclerotic disease present. Rt Vertebral Artery: The right vertebral artery is patent with antegrade flow. Lt Common Carotid Artery: The plaque in the left CCA appears to be heterogeneous. Lt Internal Carotid Artery: The plaque in the left internal carotid artery appears to be heterogeneous, calcified and irregular. Significant atherosclerotic changes of the left internal carotid artery with elevated peak systolic velocity and end diastolic velocity, as above. 50-69% stenosis. Lt External Carotid Artery: Patent left external carotid artery with evidence of atherosclerotic disease present. Lt Vertebral Artery: The left vertebral artery is patent with antegrade flow. Comments: Brachial artery systolic blood pressure is 162 on the right, 161 on the left. Provider Notification: Results called to Dr. Gasca at 10:30. CONCLUSIONS: 1. The left internal carotid artery disease is consistent with moderate 50-69% stenosis. 2. Normal, antegrade flow is noted in bilateral vertebral arteries. 3. Low flow throughout the right carotid system. Possible distal right ICA occlusion. Additional imaging recommended if clinically warranted. ATTESTATION: I have reviewed and interpreted the pertinent images and measurements of this study. I attest to the conclusions in the final report that is provided above. Electronically Signed By: Los Escobar MD 11/02/2024 6:29:32 PM BILL HIKER Procedure Note Los Escobar MD - 11/02/2024 Vascular & Vein Surgery [address] [facility] 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 HISTORY: HTN. HLD. TIA. COPD. CKD. Former smoker. COMPARISONS: The previous exam was completed on 12/25/21. Compared to prior there issignificant disease progression on the right, mild disease progression on the left. MEASUREMENTS: Right Value Left Value RT Prox CCA PSV 38 cm/sec LT Prox CCA PSV 88 cm/sec RT Prox CCA EDV 6 cm/sec LT Prox CCA EDV 17 cm/sec RT Distal CCA PSV 23 cm/sec LT Distal CCA PSV 79 cm/sec RT Distal CCA EDV 9 cm/sec LT Distal CCA EDV 18 cm/sec RT Prox ICA PSV 20 cm/sec LT Prox ICA PSV 172 cm/sec RT Prox ICA EDV 10 cm/sec LT Prox ICA EDV 41 cm/sec RT Mid ICA PSV 20 cm/sec LT Mid ICA PSV 140 cm/sec RT Mid ICA EDV 14 cm/sec LT Mid ICA EDV 31 cm/sec RT Distal ICA PSV 25 cm/sec LT Distal ICA PSV 120 cm/sec RT Distal ICA EDV 13 cm/sec LT Distal ICA EDV 37 cm/sec RT ECA Prx PSV 76 cm/sec LT ECA Prx PSV 578 cm/sec RT ICA/CCA 0.87 ratio LT ICA/CCA 2.18 ratio Rt Vert Dst PSV 78 cm/sec Lt Vert Dst PSV 42 cm/sec FINDINGS: Rt Common Carotid Artery: The plaque in the right CCA appears to beheterogeneous, calcified and irregular. Multiple segments of shadowing. Rt Internal Carotid Artery: The plaque in the right internal carotidartery appears to be heterogeneous, calcified and irregular. Shadowing plaque noted at proximalsegment. Question distal occlusion that is unable to be visualized. Rt External Carotid Artery: Patent right external carotid artery withevidence of atherosclerotic disease present. Rt Vertebral Artery: The right vertebral artery is patent with antegradeflow. Lt Common Carotid Artery: The plaque in the left CCA appears to beheterogeneous. Lt Internal Carotid Artery: The plaque in the left internal carotid arteryappears to be heterogeneous, calcified and irregular. Significant atheroscleroticchanges of the left internal carotid artery with elevated peak systolic velocity and enddiastolic velocity, as above. 50-69% stenosis. Lt External Carotid Artery: Patent left external carotid artery withevidence of atherosclerotic disease present. Lt Vertebral Artery: The left vertebral artery is patent with antegradeflow. Comments: Brachial artery systolic blood pressure is 162 on the right, 161on the left. Provider Notification: Results called to Dr. Gasca at 10:30. CONCLUSIONS: 1. The left internal carotid artery disease is consistent with -19% stenosis. 2. Normal, antegrade flow is noted in bilateral vertebral arteries. 3. Low flow throughout the right carotid system. Possible distal right ICAocclusion. Additional imaging recommended if clinically warranted. ATTESTATION: I have reviewed and interpreted the pertinent images and measurements ofthis study. I attest to the conclusions in the final report that is provided above. Electronically Signed By: Los Escobar MD 11/02/2024 6:29:32 PM BILL HIKER us Jeanie Gasca MD IMG US PROCEDURES Final R esult * ECG 12 lead (10/28/2024 2:38 PM BILL HIKER) us Jeanie Gasca MD ECG ORDERABLES Final Res ult * (ABNORMAL) eGFR (09/15/2024 4:17 AM BILL HIKER) eGFR 43(L) >=60 mL/min/1. 73 m2 Comment: Interpretive Data Reference Interval Normal >/= 90 mL/min/1.73m2 Mildly decreased* 60 - 89 mL/min/1.73m2 Mildly to moderately decreased 45 - 59 mL/min/1.73m2 Moderately to severely decreased 30 - 44 mL/min/1.73m2 Severely decreased 15 - 29 mL/min/1.73m2 Kidney Failure < 15 mL/min/1.73m2 *Relative to young adult level Estimated glomerular filtration rate is determined by the 2020 CKD-EPI equation recommended by the National Kidney Foundation (A Unifying Approach to GFR Estimation: Recommendations of the NKF-ASK Task Force on Reassessing the Inclusion of Race in Diagnosing Kidney Disease, JASN 2020). The CKD-EPI equation should not be used for patients with unstable renal function and has not been validated in children and those over 70. Current interpretive data was last reviewed 2021. Testing performed by: [facility], [address] [place] [address]., [address] Blood 09/15/2024 4:17 AM BILL HIKER 09/15/2024 4:35 AM BILL HIKER us Lexus Sam MD LAB BLOOD ORDERABLES Final Result [facility] [address] [facility] Department [place] [address] * (ABNORMAL) CBC without differential (09/15/2024 4:17 AM BILL HIKER) [facility] Signature WBC 10.4(H) 3.8 - 9.9 K/cumm Comment:Testing performed by : [address] [address] Hgb 9.7(L) 11.9 - 15.5 g/dL [facility] Comment:Testing performed by : [address] [address] Hct 30.0(L) 35.6 - 45.5 % [facility] Comment:Testing performed by : [address] [address] Plt 660(H) 150 - 400 K/cumm [facility] Comment:Testing performed by : [address] [address] MPV 9.1 9.1 - 12.3 fL [facility] Comment:Testing performed by : [address] [address] RBC 3.46(L) 3.90 - 5.20 M/cumm [facility] Comment:Testing performed by : [address] [address] MCV 86.7 81.3 - 96.4 fL [facility] Comment:Testing performed by : [address] [address] MCH 28.0 27.1 - 33.3 pg [facility] Comment:Testing performed by : [address] [address] MCHC 32.3 32.3 - 35.7 g/dL [facility] Comment:Testing performed by : [address] [address] RDW CV 14.6 11.1 - 14.9 % [facility] Comment:Testing performed by : [address] [address] RDW SD 45.8 35.7 - 48.1 fL [facility] LEA Comment:Testing performed by : [address] [address] NRBC abs 0.00 0.00 - 0.01 K/cumm [facility] LEA Comment:Testing performed by : [address] [address] Blood 09/15/2024 4:17 AM BILL HIKER 09/15/2024 4:42 AM BILL HIKER Lexus Sam MD LAB BLOOD ORDERABLES Final Result Performing Organization Address [facility]/ZIP Co de Phone Number [address] [place] [address] * Magnesium (09/15/2024 4:17 AM BILL HIKER) Pathologist [facility] Magnesium 1.4 1.4 - 2.5 mg/dL Comment:Testing performed by : [address], [address] Blood 09/15/2024 4:17 AM BILL HIKER 09/15/2024 4:35 AM BILL HIKER us Falguni Best MD LAB BLOOD ORDERABLES Final Res ult Performing Organization Address [facility] Co de Phone Number [address] [address] * (ABNORMAL) Basic metabolic panel (09/15/2024 4:17 AM BILL HIKER) Sodium 140 135 - 145 mmol/L Comment:Testing performed by : [address] [address] Potassium, pl 3.7 3.3 - 4.9 mmol/L [facility] LEA Comment:Testing performed by : [address] [address] Chloride 102 97 - 110 mmol/L [facility] LEA Comment:Testing performed by : [address] [address] CO2 24 22 - 32 mmol/L [facility] Comment:Testing performed by : [address] [address] Anion gap 14 2 - 15 mmol/L [facility] Comment:Testing performed by : [address] [address] BUN 16 6 - 25 mg/dL [facility] Comment:Testing performed by : [address] [address] Creatinine 1.20(H) 0.60 - 1.10 mg/dL [facility] Comment:Testing performed by : [address] [address] Glucose 117 70 - 199 mg/dL [facility] Comment: Interpretive Data Fasting glucose >/= 126 mg/dl is diagnostic for diabetes. Fasting is defined as no caloric intake for at least 8 hours. Fasting glucose between 100 mg/dl to 125 mg/dl is diagnostic of prediabetes. In a patient with classic symptoms of hyperglycemia or hyperglycemic crisis, a random glucose >/= 200 mg/dl is diagnostic for diabetes. In the absence of unequivocal hyperglycemia, results should be confirmed by repeat testing. The classification and Diagnosis of Diabetes Diabetes Care 2021; 46: S19-S40. Current interpretive data was last revised 2022. Testing performed by: [address] [address] Calcium 9.2 8.5 - 10.3 mg/dL [facility] Comment:Testing performed by : [address] [address] Blood 09/15/2024 4:17 AM BILL HIKER 09/15/2024 4:35 AM BILL HIKER us Lexus Sam MD LAB BLOOD ORDERABLES Final Result [facility] [address] [facility] Department [place] [address] * CT Pelvis W Contrast (09/14/2024 9:09 AM BILL HIKER) Anatomical Region Laterality Modality Body N/A Computed Tomogra phy 09/14/2024 9:17 AM BILL HIKER Narrative 09/14/2024 9:30 AM BILL HIKER EXAM DESCRIPTION: CT PELVIS W CONTRAST REASON FOR STUDY: Abscess, anal or rectal Anal/rectal abscess TECHNIQUE: CT scan of the pelvis performed with intravenous and without oral contrast using helical scanning technique with dynamic intravenous contrast injection. Reconstructed coronal and sagittal MPR images reviewed. All images stored on PACS. Automated exposure control was used as a dose optimization technique for this examination. CONTRAST TYPE/DOSE: 100mL of IOVERSOL 350 MG IODINE/ML INTRAVENOUS SYRINGE injected via intravenous COMPARISON: CT abdomen and pelvis 09/07/2024 FINDINGS: URINARY: No visualized abnormality. GI: Extensive sigmoid diverticulosis. No findings to suggest acute diverticulitis. No visualized bowel dilation. Postoperative changes related to a perirectal abscess incision and drainage, with a vessel loop in place. There is surrounding soft tissue edema. No fluid collection is identified. No soft tissue gas. PERITONEUM: Not fully included in field of view. No ascites. Small fat containing umbilical hernia. RETROPERITONEUM: Not fully included in field of view. No visualized abnormality. REPRODUCTIVE: Uterus is atrophic. No adnexal mass. VASCULATURE: Abdominal aorta not fully included in field of view. No visualized abnormality. MUSCULOSKELETAL: No acute fracture. Bilateral hip arthroplasties. No suspicious osseous lesion. OTHER: No other abnormality. IMPRESSION: Postoperative changes related to a perirectal abscess incision and drainage, with a vessel loop in place. There is surrounding soft tissue edema. No organized fluid collection is evident. Extensive sigmoid diverticulosis without evidence of acute diverticulitis. THIS IS AN ELECTRONICALLY VERIFIED FINAL REPORT 09/14/2024 9:30 AM - Electronically signed by Teddy Mei M.D. KR: PHAM Report ID: [id number] Reading Location: [id number] Procedure Note Teddy Mei MD - 09/14/2024 EXAM DESCRIPTION: CT PELVIS W CONTRAST REASON FOR STUDY: Abscess, anal or rectal Anal/rectal abscess TECHNIQUE: CT scan of the pelvis performed with intravenous andwithout oral contrast using helical scanning technique with dynamic intravenous contrast injection. Reconstructed coronal and sagittal MPR imagesreviewed. All images stored on PACS. Automated exposure control was used as a dose optimization technique for this examination. CONTRAST TYPE/DOSE: 100mL of IOVERSOL 350 MG IODINE/ML INTRAVENOUSSYRINGE injected via intravenous COMPARISON: CT abdomen and pelvis 09/07/2024 FINDINGS: URINARY: No visualized abnormality. GI: Extensive sigmoid diverticulosis. No findings to suggest acute diverticulitis. No visualized bowel dilation. Postoperative changes related to a perirectal abscess incision anddrainage, with a vessel loop in place. There is surrounding soft tissue edema. No fluid collection is identified. No soft tissue gas. PERITONEUM: Not fully included in field of view. No ascites. Small fat containing umbilical hernia. RETROPERITONEUM: Not fully included in field of view. No visualized abnormality. REPRODUCTIVE: Uterus is atrophic. No adnexal mass. VASCULATURE: Abdominal aorta not fully included in field of view. No visualized abnormality. MUSCULOSKELETAL: No acute fracture. Bilateral hip arthroplasties. No suspicious osseous lesion. OTHER: No other abnormality. IMPRESSION: Postoperative changes related to a perirectal abscess incision and drainage, with a vessel loop in place. There is surrounding soft tissue edema. No organized fluid collection is evident. Extensive sigmoid diverticulosis without evidence of acutediverticulitis. THIS IS AN ELECTRONICALLY VERIFIED FINAL REPORT 09/14/2024 9:30 AM - Electronically signed by Teddy Mei M.D. KR: PHAM Report ID: [id number] Reading Location: [place] [address] us Teddy Wiley MD IM CT PROCEDURES Final Resu lt * (ABNORMAL) eGFR (09/14/2024 3:08 AM BILL HIKER) eGFR 43(L) >=60 mL/min/1. 73 m2 Comment: Interpretive Data Reference Interval Normal >/= 90 mL/min/1.73m2 Mildly decreased* 60 - 89 mL/min/1.73m2 Mildly to moderately decreased 45 - 59 mL/min/1.73m2 Moderately to severely decreased 30 - 44 mL/min/1.73m2 Severely decreased 15 - 29 mL/min/1.73m2 Kidney Failure < 15 mL/min/1.73m2 *Relative to young adult level Estimated glomerular filtration rate is determined by the 2020 CKD-EPI equation recommended by the National Kidney Foundation (A Unifying Approach to GFR Estimation: Recommendations of the NKF-ASK Task Force on Reassessing the Inclusion of Race in Diagnosing Kidney Disease, JASN 2020). The CKD-EPI equation should not be used for patients with unstable renal function and has not been validated in children and those over 70. Current interpretive data was last reviewed 2021. Testing performed by: [address] [address] Blood 09/14/2024 3:08 AM BILL HIKER 09/14/2024 3:45 AM BILL HIKER us Lexus Sam MD LAB BLOOD ORDERABLES Final Result [facility] [facility] Department of Laboratories [place], [place] [id number] * (ABNORMAL) CBC without differential (09/14/2024 3:08 AM BILL HIKER) WBC 12.1(H) 3.8 - 9.9 K/cumm Comment:Testing performed by : [address] [address] Hgb 9.1(L) 11.9 - 15.5 g/dL [facility] LEA Comment:Testing performed by : [address] [address] Hct 28.1(L) 35.6 - 45.5 % [facility] LEA Comment:Testing performed by : [address] [address] Plt 609(H) 150 - 400 K/cumm [facility] LEA Comment:Testing performed by : [address] [address] MPV 9.5 9.1 - 12.3 fL [facility] LEA Comment:Testing performed by : [address] [address] RBC 3.24(L) 3.90 - 5.20 M/cumm [facility] LEA Comment:Testing performed by : [address] [address] MCV 86.7 81.3 - 96.4 fL [facility] LEA Comment:Testing performed by : [address] [address] MCH 28.1 27.1 - 33.3 pg [facility] LEA Comment:Testing performed by : [address] [address] MCHC 32.4 32.3 - 35.7 g/dL [facility] LEA Comment:Testing performed by : [address] [address] RDW CV 14.4 11.1 - 14.9 % [facility] LEA Comment:Testing performed by : [address] [address] RDW SD 45.2 35.7 - 48.1 fL [facility] LEA Comment:Testing performed by : [address] [address] NRBC abs 0.00 0.00 - 0.01 K/cumm [facility] LEA Comment:Testing performed by : [address] [address] Blood 09/14/2024 3:08 AM BILL HIKER 09/14/2024 4:18 AM BILL HIKER Lexus Sam MD LAB BLOOD ORDERABLES Final Result [facility] [address] [facility] Department [place] [address] * (ABNORMAL) Basic metabolic panel (09/14/2024 3:08 AM BILL HIKER) Sodium 140 135 - 145 mmol/L Comment:Testing performed by : [address] [address] Potassium, pl 3.6 3.3 - 4.9 mmol/L [facility] LEA Comment:Testing performed by : [address] [address] Chloride 102 97 - 110 mmol/L [facility] Comment:Testing performed by : [address] [address] CO2 25 22 - 32 mmol/L [facility] Comment:Testing performed by : [address] [address] Anion gap 13 2 - 15 mmol/L [facility] Comment:Testing performed by : [address] [address] BUN 17 6 - 25 mg/dL [facility] Comment:Testing performed by : [address] [address] Creatinine 1.20(H) 0.60 - 1.10 mg/dL [facility] Comment:Testing performed by : [address] [address] Glucose 121 70 - 199 mg/dL [facility] Comment: Interpretive Data Fasting glucose >/= 126 mg/dl is diagnostic for diabetes. Fasting is defined as no caloric intake for at least 8 hours. Fasting glucose between 100 mg/dl to 125 mg/dl is diagnostic of prediabetes. In a patient with classic symptoms of hyperglycemia or hyperglycemic crisis, a random glucose >/= 200 mg/dl is diagnostic for diabetes. In the absence of unequivocal hyperglycemia, results should be confirmed by repeat testing. The classification and Diagnosis of Diabetes Diabetes Care 202; 46: S19-S40. Current interpretive data was last revised 2022. Testing performed by: [address] [address] Calcium 9.1 8.5 - 10.3 mg/dL [facility] Comment:Testing performed by : [address] [address] Blood 09/14/2024 3:08 AM BILL HIKER 09/14/2024 3:45 AM BILL HIKER us Lexus Sam MD LAB BLOOD ORDERABLES Final Result [facility] [address] [facility] Department of Laboratories [place], [place] [id number] * (ABNORMAL) eGFR (09/13/2024 7:30 AM BILL HIKER) eGFR 39(L) >=60 mL/min/1. 73 m2 Comment: Interpretive Data Reference Interval Normal >/= 90 mL/min/1.73m2 Mildly decreased* 60 - 89 mL/min/1.73m2 Mildly to moderately decreased 45 - 59 mL/min/1.73m2 Moderately to severely decreased 30 - 44 mL/min/1.73m2 Severely decreased 15 - 29 mL/min/1.73m2 Kidney Failure < 15 mL/min/1.73m2 *Relative to young adult level Estimated glomerular filtration rate is determined by the 2020 CKD-EPI equation recommended by the National Kidney Foundation (A Unifying Approach to GFR Estimation: Recommendations of the NKF-ASK Task Force on Reassessing the Inclusion of Race in Diagnosing Kidney Disease, JASN 2020). The CKD-EPI equation should not be used for patients with unstable renal function and has not been validated in children and those over 70. Current interpretive data was last reviewed 2021. Testing performed by: [address] [address] Blood 09/13/2024 7:30 AM BILL HIKER 09/13/2024 7:50 AM BILL HIKER us Lexus Sam MD LAB BLOOD ORDERABLES Final Result [facility] [address] [facility] Department [place] [address] * (ABNORMAL) CBC without differential (09/13/2024 7:30 AM BILL HIKER) WBC 11.5(H) 3.8 - 9.9 K/cumm Comment:Testing performed by : [address] [address] Hgb 8.4(L) 11.9 - 15.5 g/dL [facility] LEA Comment:Testing performed by : [address] [address] Hct 25.6(L) 35.6 - 45.5 % [facility] Comment:Testing performed by : [address] [address] Plt 521(H) 150 - 400 K/cumm [facility] LEA Comment:Testing performed by : [address] [address] MPV 9.3 9.1 - 12.3 fL [facility] LEA Comment:Testing performed by : [address] [address] RBC 2.93(L) 3.90 - 5.20 M/cumm [facility] LEA Comment:Testing performed by : [address] [address] MCV 87.4 81.3 - 96.4 fL [facility] LEA Comment:Testing performed by : [address] [address] MCH 28.7 27.1 - 33.3 pg [facility] LEA Comment:Testing performed by : [address] [address] MCHC 32.8 32.3 - 35.7 g/dL [facility] Comment:Testing performed by : [address] [address] RDW CV 14.5 11.1 - 14.9 % [facility] Comment:Testing performed by : [address] [address] RDW SD 45.6 35.7 - 48.1 fL [facility] LEA Comment:Testing performed by : [address] [address] NRBC abs 0.00 0.00 - 0.01 K/cumm [facility] Comment:Testing performed by : [address] [address] Blood 09/13/2024 7:30 AM BILL HIKER 09/13/2024 7:50 AM BILL HIKER us Lexus Sam MD LAB BLOOD ORDERABLES Final Result [facility] Department [place] [address] * (ABNORMAL) Basic metabolic panel (09/13/2024 7:30 AM BILL HIKER) Sodium 140 135 - 145 mmol/L Comment:Testing performed by : [address] [address] Potassium, pl 3.5 3.3 - 4.9 mmol/L [facility] Comment:Testing performed by : [address] [address] Chloride 104 97 - 110 mmol/L [facility] Comment:Testing performed by : [address] [address] CO2 25 22 - 32 mmol/L [facility] Comment:Testing performed by : [address] [address] Anion gap 11 2 - 15 mmol/L [facility] Comment:Testing performed by : [address] [address] BUN 15 6 - 25 mg/dL [facility] Comment:Testing performed by : [address] [address] Creatinine 1.30(H) 0.60 - 1.10 mg/dL [facility] Comment:Testing performed by : [address] [address] Glucose 101 70 - 199 mg/dL [facility] Comment: Interpretive Data Fasting glucose >/= 126 mg/dl is diagnostic for diabetes. Fasting is defined as no caloric intake for at least 8 hours. Fasting glucose between 100 mg/dl to 125 mg/dl is diagnostic of prediabetes. In a patient with classic symptoms of hyperglycemia or hyperglycemic crisis, a random glucose >/= 200 mg/dl is diagnostic for diabetes. In the absence of unequivocal hyperglycemia, results should be confirmed by repeat testing. The classification and Diagnosis of Diabetes Diabetes Care 202; 46: S19-S40. Current interpretive data was last revised 2022. Testing performed by: [address] [address] Calcium 8.8 8.5 - 10.3 mg/dL [facility] Comment:Testing performed by : [address] [address] Blood 09/13/2024 7:30 AM BILL HIKER 09/13/2024 7:50 AM BILL HIKER Lexus Sam MD LAB BLOOD ORDERABLES Final Result Performing Organization Address [facility] Co de Phone Number [facility] [address] [address] * (ABNORMAL) eGFR (2024 7:21 AM BILL HIKER) eGFR 43(L) >=60 mL/min/1. 73 m2 Comment: Interpretive Data Reference Interval Normal >/= 90 mL/min/1.73m2 Mildly decreased* 60 - 89 mL/min/1.73m2 Mildly to moderately decreased 45 - 59 mL/min/1.73m2 Moderately to severely decreased 30 - 44 mL/min/1.73m2 Severely decreased 15 - 29 mL/min/1.73m2 Kidney Failure < 15 mL/min/1.73m2 *Relative to young adult level Estimated glomerular filtration rate is determined by the 2020 CKD-EPI equation recommended by the National Kidney Foundation (A Unifying Approach to GFR Estimation: Recommendations of the NKF-ASK Task Force on Reassessing the Inclusion of Race in Diagnosing Kidney Disease, JASN 2020). The CKD-EPI equation should not be used for patients with unstable renal function and has not been validated in children and those over 70. Current interpretive data was last reviewed 2021. Testing performed by: [facility], [address] [place] [address]., [address] Blood 2024 7:21 AM BILL HIKER 2024 7:27 AM BILL HIKER Lexus Sam MD LAB BLOOD ORDERABLES Final Result Performing Organization Address [facility] Co de Phone Number [facility] [address] [place] [address] * (ABNORMAL) CBC without differential (2024 7:21 AM BILL HIKER) WBC 11.6(H) 3.8 - 9.9 K/cumm Comment:Testing performed by : [address] [address] Hgb 8.3(L) 11.9 - 15.5 g/dL [facility] Comment:Testing performed by : [address] [address] Hct 25.3(L) 35.6 - 45.5 % [facility] Comment:Testing performed by : [address] [address] Plt 482(H) 150 - 400 K/cumm HANNAH Comment:Testing performed by : [address] [address] MPV 9.3 9.1 - 12.3 fL HANNAH Comment:Testing performed by : [address] [address] RBC 2.91(L) 3.90 - 5.20 M/cumm HANNAH Comment:Testing performed by : [address] [address] MCV 86.9 81.3 - 96.4 fL CERGEMMA Comment:Testing performed by : [address], [address] MCH 28.5 27.1 - 33.3 pg CERGEMMA Comment:Testing performed by : [address] [address] MCHC 32.8 32.3 - 35.7 g/dL HANNAH Comment:Testing performed by : [address] [address] RDW CV 14.5 11.1 - 14.9 % HANNAH Comment:Testing performed by : [address] [address] RDW SD 46.2 35.7 - 48.1 fL HANNAH Comment:Testing performed by : [address] [address] NRBC abs 0.00 0.00 - 0.01 K/cumm HANNAH Comment:Testing performed by : [address] [address] Blood 2024 7:21 AM BILL HIKER 2024 7:27 AM BILL HIKER Lexus Sam MD LAB BLOOD ORDERABLES Final Result Performing Organization Address [facility] de Phone Number [address] [address] * Magnesium (2024 7:21 AM BILL HIKER) Pathologist [facility] Magnesium 1.4 1.4 - 2.5 mg/dL Comment:Testing performed by : [address] [address] Blood 2024 7:21 AM BILL HIKER 2024 7:27 AM BILL HIKER Candida Han MD LAB BLOOD ORDERABLES Final R esult Performing Organization Address [facility] Co de Phone Number [address] [address] * (ABNORMAL) Basic metabolic panel (2024 7:21 AM BILL HIKER) [facility] Sodium 140 135 - 145 mmol/L Comment:Testing performed by : [address] [address] Potassium, pl 3.6 3.3 - 4.9 mmol/L HANNAH Comment:Testing performed by : [address] [address] Chloride 104 97 - 110 mmol/L HANNAH Comment:Testing performed by : [address] [address] CO2 25 22 - 32 mmol/L HANNAH Comment:Testing performed by : [address] [address] Anion gap 11 2 - 15 mmol/L HANNAH Comment:Testing performed by : [address] [address] BUN 14 6 - 25 mg/dL HANNAH Comment:Testing performed by : [address] [address] Creatinine 1.20(H) 0.60 - 1.10 mg/dL HANNAH Comment:Testing performed by : [address] [address] Glucose 103 70 - 199 mg/dL HANNAH Comment: Interpretive Data Fasting glucose >/= 126 mg/dl is diagnostic for diabetes. Fasting is defined as no caloric intake for at least 8 hours. Fasting glucose between 100 mg/dl to 125 mg/dl is diagnostic of prediabetes. In a patient with classic symptoms of hyperglycemia or hyperglycemic crisis, a random glucose >/= 200 mg/dl is diagnostic for diabetes. In the absence of unequivocal hyperglycemia, results should be confirmed by repeat testing. The classification and Diagnosis of Diabetes Diabetes Care 2021; 46: S19-S40. Current interpretive data was last revised 2022. Testing performed by: [address] [address] Calcium 9.0 8.5 - 10.3 mg/dL HANNAH Comment:Testing performed by : [address] [address] Blood 2024 7:21 AM BILL HIKER 2024 7:27 AM BILL HIKER us Lexus Sam MD LAB BLOOD ORDERABLES Final Result Performing Organization Address City/State/[facility] Co de Phone Number HANNAH [address] [facility] Department [place] [address] * (ABNORMAL) eGFR (09/11/2024 9:25 AM BILL HIKER) eGFR 48(L) >=60 mL/min/1. 73 m2 Comment: Interpretive Data Reference Interval Normal >/= 90 mL/min/1.73m2 Mildly decreased* 60 - 89 mL/min/1.73m2 Mildly to moderately decreased 45 - 59 mL/min/1.73m2 Moderately to severely decreased 30 - 44 mL/min/1.73m2 Severely decreased 15 - 29 mL/min/1.73m2 Kidney Failure < 15 mL/min/1.73m2 *Relative to young adult level Estimated glomerular filtration rate is determined by the 2020 CKD-EPI equation recommended by the National Kidney Foundation (A Unifying Approach to GFR Estimation: Recommendations of the NKF-ASK Task Force on Reassessing the Inclusion of Race in Diagnosing Kidney Disease, JASN 2020). The CKD-EPI equation should not be used for patients with unstable renal function and has not been validated in children and those over 70. Current interpretive data was last reviewed 2021. Testing performed by: [address] [address] Blood 09/11/2024 9:25 AM BILL HIKER 09/11/2024 10:27 AM BILL HIKER Lexus Sam MD LAB BLOOD ORDERABLES Final Result [facility] Department [place] [address] * (ABNORMAL) CBC without differential (09/11/2024 9:25 AM BILL HIKER) WBC 12.9(H) 3.8 - 9.9 K/cumm Comment:Testing performed by : [address] [address] Hgb 8.4(L) 11.9 - 15.5 g/dL HANNAH Comment:Testing performed by : [address] [address] Hct 26.2(L) 35.6 - 45.5 % HANNAH LEA Comment:Testing performed by : [address] [address] Plt 471(H) 150 - 400 K/cumm HANNAH LEA Comment:Testing performed by : [address] [address] MPV 9.7 9.1 - 12.3 fL HANNAH LEA Comment:Testing performed by : [address] [address] RBC 2.97(L) 3.90 - 5.20 M/cumm HANNAH LEA Comment:Testing performed by : [address] [address] MCV 88.2 81.3 - 96.4 fL HANNAH LEA Comment:Testing performed by : [address] [address] MCH 28.3 27.1 - 33.3 pg HANNAH LEA Comment:Testing performed by : [address] [address] MCHC 32.1(L) 32.3 - 35.7 g/dL HANNAH LEA Comment:Testing performed by : [address] [address] RDW CV 14.4 11.1 - 14.9 % HANNAH LEA Comment:Testing performed by : [address] [address] RDW SD 46.1 35.7 - 48.1 fL HANNAH LEA Comment:Testing performed by : [address] [address] NRBC abs 0.00 0.00 - 0.01 K/cumm HANNAH LEA Comment:Testing performed by : [address] [address] Blood 09/11/2024 9:25 AM BILL HIKER 09/11/2024 10:27 AM BILL HIKER Lexus Sam MD LAB BLOOD ORDERABLES Final Result HANNAH [address] [facility] Department of Laboratories [place], [place] [id number] * (ABNORMAL) Basic metabolic panel (09/11/2024 9:25 AM BILL HIKER) Sodium 139 135 - 145 mmol/L Comment:Testing performed by : [address] [address] Potassium, pl 3.6 3.3 - 4.9 mmol/L HANNAH LEA Comment:Testing performed by : [address] [address] Chloride 104 97 - 110 mmol/L HANNAH LEA Comment:Testing performed by : [address] [address] CO2 21(L) 22 - 32 mmol/L HANNAH Comment:Testing performed by : [address] [address] Anion gap 14 2 - 15 mmol/L HANNAH Comment:Testing performed by : [address] [address] BUN 15 6 - 25 mg/dL HANNAH Comment:Testing performed by : [address] [address] Creatinine 1.10 0.60 - 1.10 mg/dL HANNAH Comment:Testing performed by : [address] [address] Glucose 183 70 - 199 mg/dL HANNAH Comment: Interpretive Data Fasting glucose >/= 126 mg/dl is diagnostic for diabetes. Fasting is defined as no caloric intake for at least 8 hours. Fasting glucose between 100 mg/dl to 125 mg/dl is diagnostic of prediabetes. In a patient with classic symptoms of hyperglycemia or hyperglycemic crisis, a random glucose >/= 200 mg/dl is diagnostic for diabetes. In the absence of unequivocal hyperglycemia, results should be confirmed by repeat testing. The classification and Diagnosis of Diabetes Diabetes Care 202; 46: S19-S40. Current interpretive data was last revised 2022. Testing performed by: [address] [address] Calcium 8.7 8.5 - 10.3 mg/dL HANNAH Comment:Testing performed by : [address] [address] Blood 09/11/2024 9:25 AM BILL HIKER 09/11/2024 10:27 AM BILL HIKER us Lexus Sam MD LAB BLOOD ORDERABLES Final Result HANNAH [address] [facility] Department [place] [address] * (ABNORMAL) Aerobic and anaerobic culture and gram stain Abscess Anal (09/10/2024 5:49 PM BILL HIKER) Direct Specimen Exam Stain: Few polymorphonuclear leukocytes seen. Few mixed bacterial tania seen on Gram stain. Comment:Testing performed by : [facility], [address] [place]., [address] Report Final Report: Few Mixed aerobic and anaerobic microorganisms Includes the following: Few Bacteroides uniformis Few Bacteroides stercoris Rare Pseudomonas aeruginosa (.) HANNAH Comment:Testing performed by : [facility], [address] [place]., [address] Organism MIXED AEROBIC AND ANAEROBIC MICROORGANISMS HANNAH Organism PSEUDOMONAS AERUGINOSA HANNAH Organism BACTEROIDES UNIFORMIS HANNAH Organism BACTEROIDES STERCORIS HANNAH Abscess (Anal) 09/10/2024 5: 49 PM BILL HIKER 09/10/2024 8:19 PM BILL HIKER Narrative HANNAH - 09/16/2024 9:32 AM BILL HIKER Perirectal abscess Specimen received on an ESwab. Testing performed by [facility] Microbiology Laboratory ([phone]) Specimens submitted from normally sterile body sites will have all bacterial morphotypes identified. Specimens that contain grossly mixed tania and/or are from body sites that are not normally sterile will be examined for Staphylococcus aureus, Pseudomonas aeruginosa, beta-hemolytic strep, vancomycin-resistant Enterococcus, Bacteroides, Parabacteroides, Clostridium perfringens and fungus. If any of these are isolated, the organism will be reported. Current interpretive data was last revised on 2019. Organism Antibiotic Method Susceptibility Pseudomonas aeruginosa Aztreonam INTERPRETATION Susceptible Pseudomonas aeruginosa Ceftazidime INTERPRETATION Susceptible Pseudomonas aeruginosa Ciprofloxacin INTERPRETATION Susceptible Pseudomonas aeruginosa Cefepime INTERPRETATION Susceptible Pseudomonas aeruginosa Imipenem INTERPRETATION Susceptible Pseudomonas aeruginosa Meropenem INTERPRETATION Susceptible Pseudomonas aeruginosa Piperacillin/Tazobactam INTERPR ETATION Susceptible Pseudomonas aeruginosa Tobramycin INTERPRETATION Susceptible us Candida Han MD LAB MICROBIOLOGY - GENERAL O RDERABLES Final Result HANNAH LEA [address] [facility] Department [place] [address] * MD AN ELECTIVE SUPRAGLOTTIC AIRWAY, MD AN PROCEDURE PLACEHOLDER (09/10/2024 1:03 PM BILL HIKER) Narrative Jeanie Willis CRNA - 09/10/2024 1:03 PM BILL HIKER Jeanie Willis CRNA 09/10/2024 1:04 PM Airway Patient location: OR Urgency: elective Indications for airway management: anesthesia Difficult airway: no Staff: Supervising provider: Devan Bajwa MD Placed by: [employer] SUPERVISOR: Jeanie Willis CRNA Emergent airway documentation: Risks and benefits discussed: yes Consent obtained: yes Consent given by: patient Airway prep: Preoxygenated: yes Patient position: sniffing MILS maintained throughout: yes Mask difficulty assessment: 0 - not attempted Spontaneous ventilation during airway: absent Sedation level during airway: GA Final airway details: Final airway type: supraglottic airway Final supraglottic airway: classic SGA size: 4 Number of attempts: 1 us Devan Bajwa MD ANESTHESIA ORDERABLES Final Resu lt * (ABNORMAL) eGFR (09/10/2024 3:31 AM BILL HIKER) eGFR 40(L) >=60 mL/min/1. 73 m2 Comment: Interpretive Data Reference Interval Normal >/= 90 mL/min/1.73m2 Mildly decreased* 60 - 89 mL/min/1.73m2 Mildly to moderately decreased 45 - 59 mL/min/1.73m2 Moderately to severely decreased 30 - 44 mL/min/1.73m2 Severely decreased 15 - 29 mL/min/1.73m2 Kidney Failure < 15 mL/min/1.73m2 *Relative to young adult level Estimated glomerular filtration rate is determined by the 2020 CKD-EPI equation recommended by the National Kidney Foundation (A Unifying Approach to GFR Estimation: Recommendations of the NKF-ASK Task Force on Reassessing the Inclusion of Race in Diagnosing Kidney Disease, JASN 2020). The CKD-EPI equation should not be used for patients with unstable renal function and has not been validated in children and those over 70. Current interpretive data was last reviewed 2021. Testing performed by: [facility], [address] [place] [address], [place]., [address] Blood 09/10/2024 3:3 1 AM BILL HIKER 09/10/2024 4:16 AM BILL HIKER us Lexus Sam MD LAB BLOOD ORDERABLES Final Result [facility] [address] [facility] Department [place] [address] * (ABNORMAL) CBC without differential (09/10/2024 3:31 AM BILL HIKER) WBC 9.5 3.8 - 9.9 K/cumm Comment:Testing performed by : [address] [address] Hgb 8.6(L) 11.9 - 15.5 g/dL HANNAH Comment:Testing performed by : [address] [address] Hct 26.4(L) 35.6 - 45.5 % HANNAH Comment:Testing performed by : [address] [address] Plt 416(H) 150 - 400 K/cumm HANNAH Comment:Testing performed by : [address] [address] MPV 9.6 9.1 - 12.3 fL HANNAH Comment:Testing performed by : [address] [address] RBC 3.01(L) 3.90 - 5.20 M/cumm HANNAH Comment:Testing performed by : [address] [address] MCV 87.7 81.3 - 96.4 fL HANNAH Comment:Testing performed by : [address] [address] MCH 28.6 27.1 - 33.3 pg HANNAH Comment:Testing performed by : [address] [address] MCHC 32.6 32.3 - 35.7 g/dL HANNAH Comment:Testing performed by : [address] [address] RDW CV 14.4 11.1 - 14.9 % HANNAH Comment:Testing performed by : [address] [address] RDW SD 45.7 35.7 - 48.1 fL HANNAH LEA Comment:Testing performed by : [address] [address] NRBC abs 0.00 0.00 - 0.01 K/cumm HANNAH LEA Comment:Testing performed by : [address] [address] Blood 09/10/2024 3:31 AM BILL HIKER 09/10/2024 4:16 AM BILL HIKER us Lexus Sam MD LAB BLOOD ORDERABLES Final Result HANNAH LEA [facility]0 [facility] Department [place] [address] * (ABNORMAL) Basic metabolic panel (09/10/2024 3:31 AM BILL HIKER) Sodium 140 135 - 145 mmol/L Comment:Testing performed by : [address] [address] Potassium, pl 3.9 3.3 - 4.9 mmol/L HANNAH LEA Comment:Testing performed by : [address] [address] Chloride 106 97 - 110 mmol/L HANNAH LEA Comment:Testing performed by : [address] [address] CO2 24 22 - 32 mmol/L HANNAH Comment:Testing performed by : [address] [address] Anion gap 10 2 - 15 mmol/L HANNAH Comment:Testing performed by : [address] [address] BUN 19 6 - 25 mg/dL HANNAH LEA Comment:Testing performed by : [address] [address] Creatinine 1.30(H) 0.60 - 1.10 mg/dL HANNAH LEA Comment:Testing performed by : [address] [address] Glucose 118 70 - 199 mg/dL HANNAH LEA Comment: Interpretive Data Fasting glucose >/= 126 mg/dl is diagnostic for diabetes. Fasting is defined as no caloric intake for at least 8 hours. Fasting glucose between 100 mg/dl to 125 mg/dl is diagnostic of prediabetes. In a patient with classic symptoms of hyperglycemia or hyperglycemic crisis, a random glucose >/= 200 mg/dl is diagnostic for diabetes. In the absence of unequivocal hyperglycemia, results should be confirmed by repeat testing. The classification and Diagnosis of Diabetes Diabetes Care 202; 46: S19-S40. Current interpretive data was last revised 2022. Testing performed by: [facility], [address] [place] [address]., [address] Calcium 9.1 8.5 - 10.3 mg/dL HANNAH Comment:Testing performed by : [facility], [address] [place] [address]., [address] Blood 09/10/2024 3:31 AM BILL HIKER 09/10/2024 4:16 AM BILL HIKER us Lexus Sam MD LAB BLOOD ORDERABLES Final Result HANNAH [address] [facility] Department [place] [address] * (ABNORMAL) eGFR (09/09/2024 11:39 AM BILL HIKER) eGFR 36(L) >=60 mL/min/1. 73 m2 Comment: Interpretive Data Reference Interval Normal >/= 90 mL/min/1.73m2 Mildly decreased* 60 - 89 mL/min/1.73m2 Mildly to moderately decreased 45 - 59 mL/min/1.73m2 Moderately to severely decreased 30 - 44 mL/min/1.73m2 Severely decreased 15 - 29 mL/min/1.73m2 Kidney Failure < 15 mL/min/1.73m2 *Relative to young adult level Estimated glomerular filtration rate is determined by the 2020 CKD-EPI equation recommended by the National Kidney Foundation (A Unifying Approach to GFR Estimation: Recommendations of the NKF-ASK Task Force on Reassessing the Inclusion of Race in Diagnosing Kidney Disease, JASN 2020). The CKD-EPI equation should not be used for patients with unstable renal function and has not been validated in children and those over 70. Current interpretive data was last reviewed 2021. Testing performed by: [address] [address] Blood 09/09/2024 11:3 9 AM BILL HIKER 09/09/2024 11:50 AM BILL HIKER Lexus Sam MD LAB BLOOD ORDERABLES Final Result [place] [address] [facility] Department [place] [address] * (ABNORMAL) Basic metabolic panel (09/09/2024 11:39 AM BILL HIKER) Sodium 138 135 - 145 mmol/L Comment:Testing performed by : [address] [address] Potassium, pl 3.3 3.3 - 4.9 mmol/L HANNAH Comment:Testing performed by : [address] [address] Chloride 103 97 - 110 mmol/L HANNAH Comment:Testing performed by : [address] [address] CO2 25 22 - 32 mmol/L HANNAH Comment:Testing performed by : [address] [address] Anion gap 10 2 - 15 mmol/L HANNAH Comment:Testing performed by : [address] [address] BUN 23 6 - 25 mg/dL HANNAH Comment:Testing performed by : [address] [address] Creatinine 1.40(H) 0.60 - 1.10 mg/dL HANNAH Comment:Testing performed by : [address] [address] Glucose 131 70 - 199 mg/dL HANNAH Comment: Interpretive Data Fasting glucose >/= 126 mg/dl is diagnostic for diabetes. Fasting is defined as no caloric intake for at least 8 hours. Fasting glucose between 100 mg/dl to 125 mg/dl is diagnostic of prediabetes. In a patient with classic symptoms of hyperglycemia or hyperglycemic crisis, a random glucose >/= 200 mg/dl is diagnostic for diabetes. In the absence of unequivocal hyperglycemia, results should be confirmed by repeat testing. The classification and Diagnosis of Diabetes Diabetes Care 2021; 46: S19-S40. Current interpretive data was last revised 2022. Testing performed by: [address] [address] Calcium 8.9 8.5 - 10.3 mg/dL HANNAH Comment:Testing performed by : [address] [address] Blood 09/09/2024 11:3 9 AM BILL HIKER 09/09/2024 11:50 AM BILL HIKER Lexus Sam MD LAB BLOOD ORDERABLES Final Result HANNAH [address] [facility] Department [place] [address] * (ABNORMAL) CBC without differential (09/09/2024 3:42 AM BILL HIKER) Pathologist [facility] WBC 10.0(H) 3.8 - 9.9 K/cumm Comment:Testing performed by : [address] [address] Hgb 8.3(L) 11.9 - 15.5 g/dL HANNAH LEA Comment:Testing performed by : [address] [address] Hct 25.4(L) 35.6 - 45.5 % HANNAH LEA Comment:Testing performed by : [address] [address] Plt 363 150 - 400 K/cumm HANNAH LEA Comment:Testing performed by : [address] [address] MPV 9.6 9.1 - 12.3 fL HANNAH LEA Comment:Testing performed by : [address] [address] RBC 2.90(L) 3.90 - 5.20 M/cumm HANNAH LEA Comment:Testing performed by : [address] [address] MCV 87.6 81.3 - 96.4 fL HANNAH LEA Comment:Testing performed by : [address], [address] MCH 28.6 27.1 - 33.3 pg HANNAH Comment:Testing performed by : [address], [address] MCHC 32.7 32.3 - 35.7 g/dL HANNAH Comment:Testing performed by : [address], [address] RDW CV 14.0 11.1 - 14.9 % HANNAH Comment:Testing performed by : [address], [address] RDW SD 44.8 35.7 - 48.1 fL HANNAH Comment:Testing performed by : [address], [address] NRBC abs 0.00 0.00 - 0.01 K/cumm HANNAH Comment:Testing performed by : [address], [address] Blood 09/09/2024 3:42 AM BILL HIKER 09/09/2024 3:58 AM BILL HIKER us Lexus Sam MD LAB BLOOD ORDERABLES Final Result [facility] [facility] Department [place] [address] * (ABNORMAL) eGFR (09/08/2024 4:54 AM BILL HIKER) eGFR 31(L) >=60 mL/min/1. 73 m2 Comment: Interpretive Data Reference Interval Normal >/= 90 mL/min/1.73m2 Mildly decreased* 60 - 89 mL/min/1.73m2 Mildly to moderately decreased 45 - 59 mL/min/1.73m2 Moderately to severely decreased 30 - 44 mL/min/1.73m2 Severely decreased 15 - 29 mL/min/1.73m2 Kidney Failure < 15 mL/min/1.73m2 *Relative to young adult level Estimated glomerular filtration rate is determined by the 2020 CKD-EPI equation recommended by the National Kidney Foundation (A Unifying Approach to GFR Estimation: Recommendations of the NKF-ASK Task Force on Reassessing the Inclusion of Race in Diagnosing Kidney Disease, JASN 2020). The CKD-EPI equation should not be used for patients with unstable renal function and has not been validated in children and those over 70. Current interpretive data was last reviewed 2021. Testing performed by: [address] [address] Blood 09/08/2024 4:54 AM BILL HIKER 09/08/2024 4:59 AM BILL HIKER Brielle Olvera MD LAB BLOOD ORDER PRUDENCE Final Result [facility] Department of Laboratories [place], [place] [id number] * (ABNORMAL) CBC without differential (09/08/2024 4:54 AM BILL HIKER) WBC 12.6(H) 3.8 - 9.9 K/cumm Comment:Testing performed by : [address] [address] Hgb 8.8(L) 11.9 - 15.5 g/dL HANNAH LEA Comment:Testing performed by : [address] [address] Hct 27.2(L) 35.6 - 45.5 % HANNAH LEA Comment:Testing performed by : [address] [address] Plt 376 150 - 400 K/cumm HANNAH LEA Comment:Testing performed by : [address] [address] MPV 9.7 9.1 - 12.3 fL HANNAH LEA Comment:Testing performed by : [address] [address] RBC 3.13(L) 3.90 - 5.20 M/cumm HANNAH LEA Comment:Testing performed by : [address] [address] MCV 86.9 81.3 - 96.4 fL HANNAH Comment:Testing performed by : [address] [address] MCH 28.1 27.1 - 33.3 pg HANNAH Comment:Testing performed by : [address] [address] MCHC 32.4 32.3 - 35.7 g/dL HANNAH Comment:Testing performed by : [address] [address] RDW CV 14.1 11.1 - 14.9 % HANNAH Comment:Testing performed by : [address] [address] RDW SD 43.9 35.7 - 48.1 fL HANNAH Comment:Testing performed by : [address] [address] NRBC abs 0.00 0.00 - 0.01 K/cumm HANNAH Comment:Testing performed by : [address] [address] Blood 09/08/2024 4:54 AM BILL HIKER 09/08/2024 4:59 AM BILL HIKER Brielle Olvera MD LAB BLOOD ORDER PRUDENCE Final Result [facility] [address] [facility] Department [place] [address] * (ABNORMAL) Comprehensive metabolic panel (09/08/2024 4:54 AM BILL HIKER) Pathologist [facility] Sodium 142 135 - 145 mmol/L Comment:Testing performed by : [address] [address] Potassium, pl 3.8 3.3 - 4.9 mmol/L HANNAH LEA Comment:Testing performed by : [address] [address] Chloride 103 97 - 110 mmol/L HANNAH Comment:Testing performed by : [address] [address] CO2 26 22 - 32 mmol/L HANNAH Comment:Testing performed by : [address] [address] Anion gap 13 2 - 15 mmol/L HANNAH Comment:Testing performed by : [address] [address] BUN 34(H) 6 - 25 mg/dL [facility] Comment:Testing performed by : [address] [address] Creatinine 1.60(H) 0.60 - 1.10 mg/dL HANNAH Comment:Testing performed by : [address] [address] Glucose 101 70 - 199 mg/dL HANNAH Comment: Interpretive Data Fasting glucose >/= 126 mg/dl is diagnostic for diabetes. Fasting is defined as no caloric intake for at least 8 hours. Fasting glucose between 100 mg/dl to 125 mg/dl is diagnostic of prediabetes. In a patient with classic symptoms of hyperglycemia or hyperglycemic crisis, a random glucose >/= 200 mg/dl is diagnostic for diabetes. In the absence of unequivocal hyperglycemia, results should be confirmed by repeat testing. The classification and Diagnosis of Diabetes Diabetes Care 202; 46: S19-S40. Current interpretive data was last revised 2022. Testing performed by: [address] [address] Calcium 9.0 8.5 - 10.3 mg/dL HANNAH Comment:Testing performed by : [address] [address] Bilirubin, total 0.3 0.1 - 1.2 mg/dL HANNAH Comment:Testing performed by : [address] [address] Protein, pl 6.2(L) 6.5 - 8.5 g/dL HANNAH Comment:Testing performed by : [address], [place]., [address] Albumin 3.3(L) 3.5 - 5.0 g/dL HANNAH LEA Comment:Testing performed by : [address] [address] Alk phos 100 40 - 130 Units/L HANNAH LEA Comment:Testing performed by : [address] [address] ALT 9 7 - 45 Units/L HANNAH Comment:Testing performed by : [address] [address] AST 13 10 - 45 Units/L HANNAH Comment:Testing performed by : [address] [address] Blood 09/08/2024 4:54 AM BILL HIKER 09/08/2024 4:59 AM BILL HIKER Brielle Olvera MD LAB BLOOD ORDER PRUDENCE Final Result HANNAH [address] [facility] Department [place] [address] * Blood culture Blood Peripheral (09/07/2024 5:46 PM BILL HIKER) Report Final Report: No growth Comment:Testing performed by : [facility], [address] [place]., [address] Blood (Peripheral) 09/07/2024 5:46 PM BILL HIKER 09/07/2024 7:25 PM BILL HIKER Narrative HANNAH - 2024 7:00 AM BILL HIKER From a different site than #1. Draw Blood cultures before administration of Antibiotics Collection->Peripheral 1. Blood cultures are incubated for 4 days on a continuously monitored blood culture system. The first report of a negative culture is issued within 24 hours of receipt of the specimen in the laboratory. 2. Positive culture results are reported as soon as they are detected. 3. The most important factor for detection of microbes in the setting of bloodstream infection is the volume of blood submitted for culture. Failure to collect an optimal blood volume can result in false negative blood cultures. 4. For pediatric patients, the recommended blood volume to collect follows a weight based strategy. See the electronic test catalog for collection instructions. 5. For positive blood cultures, a rapid molecular test may be performed for organism identification using the quinn ePlex blood culture identification panel for gram positive (BCID-GP) and gram negative (BCID-GN) organisms. This nucleic acid amplification test detects microbial DNA in positive blood culture broth. This assay has been cleared by the [place] Food and Drug Administration and its performance characteristics have been verified by the [facility] Microbiology Laboratory. For questions about this culture, contact the Microbiology Laboratory at [phone]. Interpretive data was last revised on 24. Jeanie Campos MD LAB MICROBIOLOGY - GEN ERAL ORDERABLES Final Result Performing Organization Address City/[facility]/ZIP Co de Phone Number SYB[address] [place] [address] * Sepsis Lactate w/ Reflex (09/07/2024 5:45 PM BILL HIKER) Pathologist [facility] Sepsis Lactate 1.2 0.7 - 2.0 mmol/L Comment:Testing performed by : [facility], [address] [place] [address]., [address] Blood 09/07/2024 5:45 PM BILL HIKER 09/07/2024 5:51 PM BILL HIKER Jeanie Campos MD LAB BLOOD ORDERABLES F inal Result [place] [address] [facility] [employer] [place], [place] [id number] * Blood culture Blood Peripheral (09/07/2024 5:45 PM BILL HIKER) Report Final Report: No growth Comment:Testing performed by : [facility], [address] [facility], [place]., [address] Blood (Peripheral) 09/07/2024 5:45 PM BILL HIKER 09/07/2024 7:25 PM BILL HIKER Narrative CERNER MH - 2024 7:00 AM BILL HIKER Draw Blood cultures before administration of Antibiotics Collection->Peripheral 1. Blood cultures are incubated for 4 days on a continuously monitored blood culture system. The first report of a negative culture is issued within 24 hours of receipt of the specimen in the laboratory. 2. Positive culture results are reported as soon as they are detected. 3. The most important factor for detection of microbes in the setting of bloodstream infection is the volume of blood submitted for culture. Failure to collect an optimal blood volume can result in false negative blood cultures. 4. For pediatric patients, the recommended blood volume to collect follows a weight based strategy. See the electronic test catalog for collection instructions. 5. For positive blood cultures, a rapid molecular test may be performed for organism identification using the quinn ePlex blood culture identification panel for gram positive (BCID-GP) and gram negative (BCID-GN) organisms. This nucleic acid amplification test detects microbial DNA in positive blood culture broth. This assay has been cleared by the [place] Food and Drug Administration and its performance characteristics have been verified by the [facility] Microbiology Laboratory. For questions about this culture, contact the Microbiology Laboratory at [phone]. Interpretive data was last revised on 24. us Jeanie Campos MD LAB MICROBIOLOGY - GEN ERAL ORDERABLES Final Result HANNAH [address] [facility] Department [place] [address] * CT Abdomen Pelvis WO Contrast (09/07/2024 4:53 PM BILL HIKER) Anatomical Region Laterality Modality Body N/A Computed Tomogra phy 09/07/2024 5:23 PM BILL HIKER Narrative 09/07/2024 5:37 PM BILL HIKER EXAM DESCRIPTION: CT ABDOMEN PELVIS WO CONTRAST REASON FOR STUDY: rectal pain, constipation arrived via ems from assisted living with reports of rectal pain and constipation for aprx 3 days. TECHNIQUE: CT scan of the abdomen and pelvis performed without intravenous and without oral contrast using helical scanning technique. Reconstructed coronal and sagittal MPR images reviewed. All images stored on PACS. Automated exposure control was used as a dose optimization technique for this examination. COMPARISON: None FINDINGS: The sensitivity for detection of visceral lesions is diminished without the use of intravenous contrast. LOWER CHEST: There is no consolidation in either lung base. Subsegmental scarring and atelectasis. There are a few scattered tiny pulmonary nodules measuring less than 5 mm. There is mild bronchial wall thickening. No pleural or pericardial effusion. There are coronary artery calcifications. LIVER: The liver is within normal limits in size. No suspicious mass. GALLBLADDER: Cholelithiasis. No definitive CT evidence of cholecystitis. BILE DUCTS: Minimal prominence of central intrahepatic biliary radicles within the left hepatic lobe. The common duct is within normal limits in caliber. SPLEEN: Normal size. No focal mass. PANCREAS: No peripancreatic inflammatory process or fluid collection. No pancreatic ductal dilatation. ADRENALS: There is a left adrenal nodule measuring 1.7 cm on image 49. Hounsfield units are 20, making this nodule indeterminate. There is a 3 cm nodule within the right adrenal gland on image number 48 Hounsfield units are below 0, suggesting an adenoma. KIDNEYS/URINARY TRACT: The kidneys are symmetric in size. There is some nonspecific perinephric stranding bilaterally. There are renal vascular calcifications. There is no hydronephrosis or hydroureter. Portions of the distal ureters are obscured by beam hardening artifact. No definite obstructing urolithiasis. There are a few cortical hypodensities within both kidneys. For instance in the left kidney lateral cortex image 65 measuring 1.4 cm, statistically a cyst though incompletely characterized on this exam. The urinary bladder is mildly distended. The inferior aspect of the urinary bladder is limited in assessment due to artifact from bilateral hip arthroplasty hardware. GI: The stomach is decompressed. There is a small sliding-type hiatal hernia. Duodenal diverticulum at the 2nd portion of the duodenum. Small bowel loops are within normal limits in caliber. There is no small bowel obstruction. The appendix is normal. There is diverticulosis the colon. Intermittent decompression of the colon limits evaluation for mass. There is diverticulosis. There is some mild wall thickening versus decompression in the sigmoid colon on axial images 120 5-129. There is a question of mild inflammatory stranding about a few diverticula within the deep pelvis on axial images 120 5-130 posteriorly, which may reflect sequela of a mild diverticulitis. There is circumferential wall thickening of the distal rectum. There is incomplete visualization the anus on this examination given the presence of pelvic floor relaxation. PERITONEUM: There is no free intraperitoneal air. No significant free fluid. No mesenteric lymphadenopathy RETROPERITONEUM: There are scattered retroperitoneal nodes about the distal aorta, with node on image 86 measuring 1 cm short axis. REPRODUCTIVE: The uterus is within normal limits in size. No definitive adnexal mass VASCULATURE: Aorta is atherosclerotic without aneurysm. MUSCULOSKELETAL: There is grade 1 anterolisthesis of L3 on L4. Grade 1 anterolisthesis of L5 on S1. Multilevel degenerative disc disease. Bilateral total hip arthroplasty hardware is partially visualized. OTHER: There is a small fat containing umbilical hernia measuring 3.5 cm. IMPRESSION: Circumferential wall thickening of the distal rectum. Correlate with physical exam findings. This could reflect proctitis. Underlying rectal mass can not be excluded. Correlate with digital rectal examination and direct visualization. There is a component of pelvic floor relaxation noted. Diverticulosis. There is a question of mild inflammatory stranding about a few diverticula in the deep pelvis, which may reflect sequela of a mild diverticulitis. No evidence of perforation or abscess formation. Intermittent decompression of the colon limits evaluation for mass. Cholelithiasis. Indeterminate left adrenal nodule. Unless there are prior examinations at outside institutions to document stability, this can be further evaluated with adrenal mass protocol CT or MRI imaging. Right adrenal adenoma. Additional findings as above. There are a few scattered tiny pulmonary nodules measuring less than 5 mm. Per Fleischner Society Guidelines, no further investigation recommended. THIS IS AN ELECTRONICALLY VERIFIED FINAL REPORT 09/07/2024 5:37 PM - Electronically signed by Raine Romo M.D. TW: DARRIUS Report ID: [id number] Reading Location: [id number] Procedure Note Raine Romo MD - 09/07/2024 EXAM DESCRIPTION: CT ABDOMEN PELVIS WO CONTRAST REASON FOR STUDY: rectal pain, constipation arrived via ems from assisted living with reports of rectal pain and constipation for aprx 3 days. TECHNIQUE: CT scan of the abdomen and pelvis performed without intravenousand without oral contrast using helical scanning technique. Reconstructed coronal and sagittal MPR images reviewed. All images stored on PACS.Automated exposure control was used as a dose optimization technique for this examination. COMPARISON: None FINDINGS: The sensitivity for detection of visceral lesions is diminished without the use of intravenous contrast. LOWER CHEST: There is no consolidation in either lung base.Subsegmental scarring and atelectasis. There are a few scattered tiny pulmonarynodules measuring less than 5 mm. There is mild bronchial wall thickening. No pleural or pericardial effusion. There are coronary arterycalcifications. LIVER: The liver is within normal limits in size. No suspicious mass. GALLBLADDER: Cholelithiasis. No definitive CT evidence ofcholecystitis. BILE DUCTS: Minimal prominence of central intrahepatic biliary radicles within the left hepatic lobe. The common duct is within normal limits in caliber. SPLEEN: Normal size. No focal mass. PANCREAS: No peripancreatic inflammatory process or fluid collection.No pancreatic ductal dilatation. ADRENALS: There is a left adrenal nodule measuring 1.7 cm on image 49. Hounsfield units are 20, making this nodule indeterminate. There is a 3cm nodule within the right adrenal gland on image number 48 Hounsfield unitsare below 0, suggesting an adenoma. KIDNEYS/URINARY TRACT: The kidneys are symmetric in size. There is some nonspecific perinephric stranding bilaterally. There are renal vascular calcifications. There is no hydronephrosis or hydroureter. Portions ofthe distal ureters are obscured by beam hardening artifact. No definite obstructing urolithiasis. There are a few cortical hypodensities withinboth kidneys. For instance in the left kidney lateral cortex image 65measuring 1.4 cm, statistically a cyst though incompletely characterized on thisexam. The urinary bladder is mildly distended. The inferior aspect of theurinary bladder is limited in assessment due to artifact from bilateral hip arthroplasty hardware. GI: The stomach is decompressed. There is a small sliding-type hiatal hernia. Duodenal diverticulum at the 2nd portion of the duodenum. Small bowel loops are within normal limits in caliber. There is no small bowel obstruction. The appendix is normal. There is diverticulosis the colon. Intermittent decompression of the colon limits evaluation for mass. Thereis diverticulosis. There is some mild wall thickening versus decompressionin the sigmoid colon on axial images 120 5-129. There is a question of mild inflammatory stranding about a few diverticula within the deep pelvis onaxial images 120 5-130 posteriorly, which may reflect sequela of a mild diverticulitis. There is circumferential wall thickening of the distal rectum. There is incomplete visualization the anus on this examinationgiven the presence of pelvic floor relaxation. PERITONEUM: There is no free intraperitoneal air. No significant free fluid. No mesenteric lymphadenopathy RETROPERITONEUM: There are scattered retroperitoneal nodes about thedistal aorta, with node on image 86 measuring 1 cm short axis. REPRODUCTIVE: The uterus is within normal limits in size. No definitive adnexal mass VASCULATURE: Aorta is atherosclerotic without aneurysm. MUSCULOSKELETAL: There is grade 1 anterolisthesis of L3 on L4. Grade 1 anterolisthesis of L5 on S1. Multilevel degenerative disc disease.Bilateral total hip arthroplasty hardware is partially visualized. OTHER: There is a small fat containing umbilical hernia measuring 3.5cm. IMPRESSION: Circumferential wall thickening of the distal rectum. Correlate withphysical exam findings. This could reflect proctitis. Underlying rectal mass cannot be excluded. Correlate with digital rectal examination and direct visualization. There is a component of pelvic floor relaxation noted. Diverticulosis. There is a question of mild inflammatory stranding abouta few diverticula in the deep pelvis, which may reflect sequela of a mild diverticulitis. No evidence of perforation or abscess formation. Intermittent decompression of the colon limits evaluation for mass. Cholelithiasis. Indeterminate left adrenal nodule. Unless there are prior examinationsat outside institutions to document stability, this can be further evaluatedwith adrenal mass protocol CT or MRI imaging. Right adrenal adenoma. Additional findings as above. There are a few scattered tiny pulmonary nodules measuring less than 5mm. Per Fleischner Society Guidelines, no further investigation recommended. THIS IS AN ELECTRONICALLY VERIFIED FINAL REPORT 09/07/2024 5:37 PM - Electronically signed by Raine Romo M.D. TW: DARRIUS Report ID: [id number] Reading Location: [place] [address] us Casi Jameson NP IMG CT PROCEDURES Final Result * (ABNORMAL) eGFR (09/07/2024 1:31 PM BILL HIKER) eGFR 20(L) >=60 mL/min/1. 73 m2 Comment: Interpretive Data Reference Interval Normal >/= 90 mL/min/1.73m2 Mildly decreased* 60 - 89 mL/min/1.73m2 Mildly to moderately decreased 45 - 59 mL/min/1.73m2 Moderately to severely decreased 30 - 44 mL/min/1.73m2 Severely decreased 15 - 29 mL/min/1.73m2 Kidney Failure < 15 mL/min/1.73m2 *Relative to young adult level Estimated glomerular filtration rate is determined by the 2020 CKD-EPI equation recommended by the National Kidney Foundation (A Unifying Approach to GFR Estimation: Recommendations of the NKF-ASK Task Force on Reassessing the Inclusion of Race in Diagnosing Kidney Disease, JASN 2020). The CKD-EPI equation should not be used for patients with unstable renal function and has not been validated in children and those over 70. Current interpretive data was last reviewed 2021. Testing performed by: [address] [address] Blood 09/07/2024 1:31 PM BILL HIKER 09/07/2024 1:49 PM BILL HIKER us Casi Jameson NP LAB BLOOD ORDERABLES Final Resul t HANNAH [address] [facility] Department [place] [address] * (ABNORMAL) Differential, auto (09/07/2024 1:31 PM BILL HIKER) Neutrophil abs 10.9(H) 1.5 - 6.5 K/cumm Comment:Testing performed by : [address] [address] Imm gran abs 0.3(H) 0.0 - 0.1 K/cumm HANNAH Comment:Testing performed by : [address] [address] Lymphocyte abs 1.5 0.8 - 3.3 K/cumm HANNAH Comment:Testing performed by : [address] [address] Monocyte abs 1.9(H) 0.2 - 0.8 K/cumm HANNAH Comment:Testing performed by : [address] [address] Eosinophil abs 0.5 0.0 - 0.5 K/cumm HANNAH Comment:Testing performed by : [address] [address] Basophil abs 0.1 0.0 - 0.1 K/cumm HANNAH Comment:Testing performed by : [address] [address] Neutrophil pct 72.2 % [facility] Comment: Interpretive Data Percent cell count reference ranges are not reported, since discordance with absolute values may lead to misinterpretation of CBC data. Current Interpretive Data was last revised on 2017. Testing performed by: [address] [address] Imm gran pct 2.2 % [facility] Comment: Interpretive Data Percent cell count reference ranges are not reported, since discordance with absolute values may lead to misinterpretation of CBC data. Current Interpretive Data was last revised on 2017. Testing performed by: [address] [address] Lymphocyte pct 9.6 % [facility] Comment: Interpretive Data Percent cell count reference ranges are not reported, since discordance with absolute values may lead to misinterpretation of CBC data. Current Interpretive Data was last revised on 2017. Testing performed by: [address] [address] Monocyte pct 12.6 % [facility] Comment: Interpretive Data Percent cell count reference ranges are not reported, since discordance with absolute values may lead to misinterpretation of CBC data. Current Interpretive Data was last revised on 2017. Testing performed by: [address] [address] Eosinophil pct 3.0 % [facility] Comment: Interpretive Data Percent cell count reference ranges are not reported, since discordance with absolute values may lead to misinterpretation of CBC data. Current Interpretive Data was last revised on 2017. Testing performed by: [address] [address] Basophil pct 0.4 % [facility] Comment: Interpretive Data Percent cell count reference ranges are not reported, since discordance with absolute values may lead to misinterpretation of CBC data. Current Interpretive Data was last revised on 2017. Testing performed by: [address] [address] Blood 09/07/2024 1:31 PM BILL HIKER 09/07/2024 1:49 PM BILL HIKER Casi Jameson NP LAB BLOOD ORDERABLES Final Resul t Performing Organization Address City/[facility]/ZIP Co de Phone Number [address] [place] [address] * Thyroid Function [place] (09/07/2024 1:31 PM BILL HIKER) TSH 2.01 0.30 - 4.20 mcIUnit/mL Comment:Testing performed by : [address] [address] Blood 09/07/2024 1:31 PM BILL HIKER 09/07/2024 11:36 PM BILL HIKER us Brielle Olvera MD LAB BLOOD ORDER PRUDENCE Edited Result - Final Performing Organization Address City/[facility]/ZIP Co de Phone Number [address] [address] * (ABNORMAL) CBC with auto differential (09/07/2024 1:31 PM BILL HIKER) WBC 15.1(H) 3.8 - 9.9 K/cumm Comment:Testing performed by : [address] [address] Hgb 9.4(L) 11.9 - 15.5 g/dL HANNAH LEA Comment:Testing performed by : [address] [address] Hct 29.1(L) 35.6 - 45.5 % HANNAH LEA Comment:Testing performed by : [address] [address] Plt 353 150 - 400 K/cumm HANNAH LEA Comment:Testing performed by : [address] [address] MPV 9.5 9.1 - 12.3 fL HANNAH LEA Comment:Testing performed by : [address] [address] RBC 3.32(L) 3.90 - 5.20 M/cumm HANNAH LEA Comment:Testing performed by : [address] [address] MCV 87.7 81.3 - 96.4 fL HANNAH LEA Comment:Testing performed by : [address] [address] MCH 28.3 27.1 - 33.3 pg HANNAH Comment:Testing performed by : [address] [address] MCHC 32.3 32.3 - 35.7 g/dL HANNAH Comment:Testing performed by : [address] [address] RDW CV 14.2 11.1 - 14.9 % HANNAH Comment:Testing performed by : [address] [address] RDW SD 45.2 35.7 - 48.1 fL HANNAH Comment:Testing performed by : [address] [address] NRBC abs 0.00 0.00 - 0.01 K/cumm HANNAH Comment:Testing performed by : [address] [address] Blood 09/07/2024 1:3 1 PM BILL HIKER 09/07/2024 1:49 PM BILL HIKER us Casi Jameson NP LAB BLOOD ORDERABLES Final Resul t [facility]ANNAH [facility] Department [place] [address] * Magnesium (09/07/2024 1:31 PM BILL HIKER) Magnesium 1.7 1.4 - 2.5 mg/dL Comment:Testing performed by : [address] [address] Blood 09/07/2024 1:31 PM BILL HIKER 09/07/2024 11:36 PM BILL HIKER Brielle Olvera MD LAB BLOOD ORDER PRUDENCE Final Result Performing Organization Address [facility] de Phone Number HANNAH [address] [address] * (ABNORMAL) Hemoglobin A1c (09/07/2024 1:31 PM BILL HIKER) Hgb A1C 6.2(H) 4.0 - 5.6 % Comment:Testing performed by : [address] [address] Estimated Average Glucose 131 mg/dL HANNAH Comment: The ADA recommends reporting an estimated Average Glucose (eAG) with all Hemoglobin A1c results using the equation derived from a study of 507 normal and diabetic adults. Minority populations were underrepresented and children were not included. (Diabetes Care 31:0242-2505, 2008). The eAG is not equivalent to a fasting glucose. Testing performed by: [facility], [address] [place] [address]., [address] Blood 09/07/2024 1:31 PM BILL HIKER 09/07/2024 11:36 PM BILL HIKER Brielle Olvera MD LAB BLOOD ORDER PRUDENCE Final Result Performing Organization Address [facility] de Phone Number [place] [address] [place] [address] * Lipid panel (09/07/2024 1:31 PM BILL HIKER) Cholesterol 106 30 - 199 mg/dL Comment: Interpretive Data Ages < or = 19 years Acceptable: <170 mg/dL Borderline high: 170-199 mg/dL High: >or= 200 mg/dL Ages > or = 20 years Desirable: <200 mg/dL Borderline high: 200-239 mg/dL High: >or= 240 mg/dL Literature References: 1. Expert Panel on Integrated Guidelines for Cardiovascular Health and Risk Reduction in Children and Adolescents. Pediatrics 2011;128:S213 2. NCEP Expert Panel. Circulation 2004;110:227 Current Interpretive Data was last revised on 2018. Testing performed by: [address] [address] Triglycerides 125 <=149 mg/dL HANNAH Comment: Interpretive Data Ages < or = 9 years Acceptable: <75 mg/dL Borderline high: 75-99 mg/dL High: >or= 100 mg/dL Ages 10 to 20 years Acceptable: <90 mg/dL Borderline high: 90-129 mg/dL High: >or= 130 mg/dL Ages > or = 20 years Desirable: <150 mg/dL Borderline high: 150-199 mg/dL High: 200-499 mg/dL Very high: >or= 499 mg/dL Literature References: 1. Expert Panel on Integrated Guidelines for Cardiovascular Health and Risk Reduction in Children and Adolescents. Pediatrics 2011;128:S213 2. NCEP Expert Panel. Circulation 2004;110:227 Current Interpretive Data was last revised on 2018. Testing performed by: [address] [address] HDL 42 >=40 mg/dL HANNAH Comment: Interpretive Data Ages < or = 19 years Acceptable: >45 mg/dL Borderline low: 40-45 mg/dL Low: <40 mg/dL Ages > or = 20 years Desirable: >or= 60 mg/dL Low: <40 mg/dL Literature References: 1. Expert Panel on Integrated Guidelines for Cardiovascular Health and Risk Reduction in Children and Adolescents. Pediatrics 2011;128:S213 2. NCEP Expert Panel. Circulation 2004;110:227 Current Interpretive Data was last revised on 2018. Testing performed by: [address] [address] LDL, calculated 42 <=129 mg/dL HANNAH Comment: Interpretive Data Ages < or = 19 years Acceptable: <110 mg/dL Borderline high: 110-129 mg/dL High: >or= 130 mg/dL Ages > or = 20 years Optimal: <100 mg/dL Near optimal: 100-129 mg/dL Borderline high: 130-159 mg/dL High: >160 mg/dL Calculated using the Nair LDL-C estimating equation. This equation was implemented on 2024. Prior to this date LDL-C was estimated using the Friedewald equation. Literature References: 1. Expert Panel on Integrated Guidelines for Cardiovascular Health and Risk Reduction in Children and Adolescents. Pediatrics 2011;128:S213 2. NCEP Expert Panel. Circulation 2004;110:227 3. Korey Godoy et al. FLYNN Cardiol. 2019January 06;5(5):540-548. doi: 10.1001/[email or web address] Current Interpretive Data was last revised on 2024. Testing performed by: [address] [address] Non-HDL Cholesterol 64 mg/dL [facility] Comment: Interpretive Data Ages < or = 19 years Acceptable: <120 mg/dL Borderline high: 120-144 mg/dL High: >145 mg/dL Ages > or = 20 years When triglycerides are >200 mg/dL, Non-HDL cholesterol is a secondary target of therapy with treatment goals that are 30 mg/dL greater than the LDL cholesterol target. Literature References: 1. Expert Panel on Integrated Guidelines for Cardiovascular Health and Risk Reduction in Children and Adolescents. Pediatrics 2011;128:S213 2. NCEP Expert Panel. Circulation 2004;110:227 Current Interpretive Data was last revised on 2018. Testing performed by: [address] [address] Chol/HDL ratio 3 [facility] Comment:Testing performed by : [address] [address] Blood 09/07/2024 1:31 PM BILL HIKER 09/07/2024 11:36 PM BILL HIKER Brielle Olvera MD LAB BLOOD ORDER PRUDENCE Final Result [facility] [address] [facility] Department [place] [address] * (ABNORMAL) Comprehensive metabolic panel (09/07/2024 1:31 PM BILL HIKER) [facility] Sodium 138 135 - 145 mmol/L Comment:Testing performed by : [address] [place]., [address] Potassium, pl 4.1 3.3 - 4.9 mmol/L [facility] Comment:Testing performed by : [address] [address] Chloride 97 97 - 110 mmol/L [facility] Comment:Testing performed by : [address], [place]., [address] CO2 25 22 - 32 mmol/L [facility] Comment:Testing performed by : [address] [address] Anion gap 16(H) 2 - 15 mmol/L [facility] Comment:Testing performed by : [address] [address] BUN 45(H) 6 - 25 mg/dL [facility] Comment:Testing performed by : [address], [place]., [address] Creatinine 2.30(H) 0.60 - 1.10 mg/dL [facility] Comment:Testing performed by : [address] [address] Glucose 100 70 - 199 mg/dL [facility] Comment: Interpretive Data Fasting glucose >/= 126 mg/dl is diagnostic for diabetes. Fasting is defined as no caloric intake for at least 8 hours. Fasting glucose between 100 mg/dl to 125 mg/dl is diagnostic of prediabetes. In a patient with classic symptoms of hyperglycemia or hyperglycemic crisis, a random glucose >/= 200 mg/dl is diagnostic for diabetes. In the absence of unequivocal hyperglycemia, results should be confirmed by repeat testing. The classification and Diagnosis of Diabetes Diabetes Care 2021; 46: S19-S40. Current interpretive data was last revised 2022. Testing performed by: [address] [address] Calcium 9.4 8.5 - 10.3 mg/dL [facility] Comment:Testing performed by : [address] [address] Bilirubin, total 0.2 0.1 - 1.2 mg/dL [facility] Comment:Testing performed by : [address] [address] Protein, pl 6.9 6.5 - 8.5 g/dL [facility] Comment:Testing performed by : [address] [address] Albumin 3.8 3.5 - 5.0 g/dL [facility] Comment:Testing performed by : [address] [address] Alk phos 112 40 - 130 Units/L [facility] Comment:Testing performed by : [address] [address] ALT 11 7 - 45 Units/L [facility] Comment:Testing performed by : [address] [address] AST 13 10 - 45 Units/L [facility] Comment:Testing performed by : [address] [address] Blood 09/07/2024 1:31 PM BILL HIKER 09/07/2024 1:49 PM BILL HIKER Casi Jameson JUNIOR PROJECT MANAGER LAB BLOOD ORDERABLES Final Resul t [facility] [address] [facility] Department [place] [address] from Last 3 Months Insurance MEDICARE [facility] Address: [address] [place] [address] MEDICARE [facility] Address: [address] [place] [phone] [facility] [employer] MEDICARE [facility] [employer] Advance Directives For more information, please contact: [phone] Documents on File Type Date Recorded 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 Use antibiotics, IV Fluids, and medical treatment unless specifically selected below: No intubation * LIMITED - No CPR Date Activated Date Inactivated Comments 08/19/2024 9:04 AM 08/25/2024 11:00 PM Question Answer Comments Provide aggressive medical m anagement before a full cardiopulmonary arrest occurs. Use antibiotics, IV Fluids, and medical treatment unless specifically selected below: No intubation * LIMITED - No CPR Date Activated Date Inactivated Comments 07/24/2024 9:10 AM 07/25/2024 7:06 PM Question Answer Comments Provide aggressive medical m anagement before a full cardiopulmonary arrest occurs. Use antibiotics, IV Fluids, and medical treatment unless specifically selected below: No intubationNo cardioversionNo vasopressorsNo internal / external pacemaker * Full Code Date Activated Date Inactivated Comments 07/22/2024 8:13 PM 07/24/2024 9:10 AM * Full Code Date Activated Date Inactivated Comments 05/08/2023 5:54 PM 05/13/2023 8:27 PM Care Teams Production Control Coordinating Clerk Relationship Specialty Start Date End Date Irving Montes MD PCP - General Family Medicine 04/27/18
--- OUTSIDE RECORDS SUMMARY | 2024-12-02 10:49 | XMS_ITS | Encounter Summary ---
Author Organization [facility] Address [address] [place] [address] Care Team Providers Care Toll Line Inspector Name Role Phone Unavailable Primary Care Provider Unavailabl e Encounter Details Date Type Department Care Team (Late st Contact Info) Description 08/22/2023 Lab Requisition [facility] - DermPath Lab [address] [facility] [place] [id number] Jamil Salas MD [address] [place] [address] Social History Tobacco Use Types Packs/Day Years Used Date Smoking Tobacco: Never Assessed Sex and Gender Information Value Date Recorded Sex Assigned at Not on file Gender Identity Not on file Sexual Orientation Not on file documented as of this encounter Plan of Treatment Not on file documented as of this encounter Procedures Procedure Name Priority Date/Time Associated Diagnosis Comments DERMATOPATHOLOGY Routine 08/21/2023 3:33 AM TELEVISION ANTENNA INSTALLER documented in this encounter Results * DERMATOPATHOLOGY (08/21/2023 3:33 AM TELEVISION ANTENNA INSTALLER) Case Report Dermatopathology Report Case: [id number] Authorizing Provider: Jamil Salas MD Collected: 08/21/2023 03:33 AM Ordering Location: [facility] DermPath Lab Received: 08/25/2023 07:09 AM Pathologist: Charlene Yang MD Specimen: Skin, nasal ltip 3 12:08 PM TELEVISION ANTENNA INSTALLER DERMATOPATHOLOGY LABORATORY Final Diagnosis Specimen A. SKIN, nasal tip: DERMAL SCAR RESIDUAL BASAL CELL CARCINOMA NOT IDENTIFIED (L90.5) 3 12:08 PM TELEVISION ANTENNA INSTALLER DERMATOPATHOLOGY LABORATORY Clinical History BCC Nodule. Prior Biopsy [id number] 3 12:08 PM [facility] DERMATOPATHOLOGY LABORATORY Gross Description Specimen A: Received is one formalin filled container labeled with the patient's name and designated nasal tip. The specimen consists of a curettage and desiccation biopsy measuring 9x9x2 mm. Jar 0. 3 12:08 PM [facility] DERMATOPATHOLOGY LABORATORY Microscopic Description Specimen A. SKIN, nasal tip: There are fibroblasts and collagen bundles oriented parallel to the skin surface. There are elongated blood vessels, some of which are oriented perpendicular to the skin surface. Abundant hemosiderin is also observed at the base of the fibrosis. No basal cell carcinoma is identified. 3 12:08 PM [facility] DERMATOPATHOLOGY LABORATORY Disclaimer An external and internal positive and negative controls are appropriate for the histochemical, immunohistochemical and immunofluorescence stain(s) in this case (if any), except where stated explicitly. The performance characteristics of the stain(s) cited in this report were developed and its performance characteristic determined by the Dermatopathology Laboratory at [facility], directed by Dr. Anil Willett. These tests need not be, and therefore are not, approved by the [place] Food and Drug Administration. The tests are used for clinical purposes. Billing Codes Specimen Charges Stain Charges 60499 1 3 12:08 PM [facility] DERMATOPATHOLOGY LABORATORY Embedded Images 3 12:08 PM [facility] DERMATOPATHOLOGY LABORATORY Pathology/Cytolo gy TISSUE SPECIMEN FROM SKIN / Unknown 08/21/2023 3:33 AM TELEVISION ANTENNA INSTALLER 08/25/2023 7:09 AM TELEVISION ANTENNA INSTALLER Jamil Salas MD LAB - PATHOLOGY/CYTO LOGY ORDERABLES DERMATOPATHOLOGY LABORATORY [facility] - Department of Dermatology [address] [place] [address], [facility] [phone] documented in this encounter Visit Diagnoses Not on filedocumented in this encounter
--- OUTSIDE RECORDS SUMMARY | 2024-12-02 10:49 | XMS_ITS | Encounter Summary ---
Author Organization [facility] Address [address] [place] [address] Care Team Providers Care Digital Sales Manager Name Role Phone Unavailable Primary Care Provider Unavailabl e Encounter Details Date Type Department Care Team (Late st Contact Info) Description 07/24/2023 Lab Requisition [facility] - DermPath Lab [address] [facility] [place] [id number] Jamil Salas MD [address] [place] [address] Social History Tobacco Use Types [...] Priority Date/Time Associated Diagnosis Comments DERMATOPATHOLOGY Routine 07/22/2023 12:0 0 AM CYCLE TOURING GUIDE documented in this encounter Results * DERMATOPATHOLOGY (07/22/2023 12:00 AM CYCLE TOURING GUIDE) Case Report Dermatopathology Report Case: [id number] Authorizing Provider: Jamil Salas MD Collected: 07/22/2023 12:00 AM Ordering Location: [facility] DermPath Lab Received: 07/24/2023 09:19 AM Pathologist: Charlene Yang MD Specimen: Skin, nasal tip 3 3:16 PM CYCLE TOURING GUIDE DERMATOPATHOLOGY LABORATORY Final Diagnosis Specimen A. SKIN, nasal tip: BASAL CELL CARCINOMA, NODULAR TYPE (C44.311) 3 3:16 PM CYCLE TOURING GUIDE DERMATOPATHOLOGY LABORATORY Clinical History R/O BCC 3 3:16 PM CYCLE TOURING GUIDE DERMATOPATHOLOGY LABORATORY Gross Description Specimen A: Received is one formalin filled container labeled with the patient's name and designated nasal tip. The specimen consists of a (3) pieces shave biopsy measuring 1x4x1, 6x5x1, 3x3x1 mm. Jar 0. 3 3:16 PM [facility] DERMATOPATHOLOGY LABORATORY Microscopic Description Specimen A. SKIN, nasal tip: Within the dermis there are aggregates of basaloid cells with a high nuclear to cytoplasmic ratio and peripheral palisading. 3 3:16 PM [facility] DERMATOPATHOLOGY LABORATORY Disclaimer An external and internal positive and negative controls are appropriate for the histochemical, immunohistochemical and immunofluorescence stain(s) in this case (if any), except where stated explicitly. The performance characteristics of the stain(s) cited in this report were developed and its performance characteristic determined by the Dermatopathology Laboratory at [facility], directed by Dr. Anil Willett. These tests need not be, and therefore are not, approved by the [place] Food and Drug Administration. The tests are used for clinical purposes. Billing Codes Specimen Charges Stain Charges 46060 1 3 3:16 PM [facility] DERMATOPATHOLOGY LABORATORY Embedded Images 3 3:16 PM [facility] DERMATOPATHOLOGY LABORATORY Pathology/Cytolog y TISSUE SPECIMEN FROM SKIN / Unknown 07/22/2023 07/24/2023 9:19 AM CYCLE TOURING GUIDE Jamil Salas MD LAB - PATHOLOGY/CYTO LOGY ORDERABLES DERMATOPATHOLOGY LABORATORY [facility] - Department of Dermatology [address] [phone] documented in this encounter Visit Diagnoses Not on filedocumented in this encounter
--- OUTSIDE RECORDS SUMMARY | 2024-12-02 10:50 | XMS_ITS | Encounter Summary ---
Author Organization [facility] Address [address] [place] [address] Care Team Providers Care Package Wrapper Name Role Phone Irving Montes MD Primary Care Provider [phone] Encounter Details Date Type Department Care Team (Late st Contact Info) Description 11/03/2024 Results Follow-Up [facility] Medical Group Cardiology at [address] [place] [address] Luis Gasca MD [facility] [place] [id number] Social History Tobacco Use Types Packs/Day Years Used Date Smoking Tobacco: Former Cigarettes Smokeless Tobacco: Never Alcohol Use Standard Drinks/Week Comments No 0 [...] materials from doctor or pharmacy Never 10/22/2024 [facility] Utilities Answer Date Recorded In the past 12 months has th e electric, gas, oil, or water company threatened to shut off services in your [...] often do you attend chur ch or gnosticism services? Never 09/10/2024 Do you belong to any clubs o r organizations such as rastafarian groups, unions, fraternal or athletic groups, or [...] place to sleep or slept in a alf (including now)? No 05/09/2023 PHQ-9 Answer Date [...] were you homeless or living in a alf (including now)? No 09/10/2024 Personal Safety Answer Date Recorded Have you ever been in or are you currently in a harmful physical or emotional relationship or is someone making you feel afraid or unsafe? Denies 09/08/2024 Comments No Sex and Gender Information Value Date Recorded Sex Assigned at Not on file Legal Sex Female 11:52 PM BAND SALVAGER Gender Identity Not on file Sexual Orientation Not on file documented as of this encounter Plan of Treatment Not on file documented as of this encounter Visit Diagnoses Not on filedocumented in this encounter Care Teams Package Wrapper Relationship Specialty Start Date End Date Irving Montes MD PCP - General Family Medicine 04/27/18 documented as of this encounter
--- OUTSIDE RECORDS SUMMARY | 2024-12-02 10:50 | XMS_ITS | Continuity of Care Document ---
Author Organization [facility] Address [address] [place] [address] Phone Care Team Providers Care Agile Coach Name Role Phone Rick Lamb MD Unavailable Unavailable Results Test Name Date and Time Measure Units Reference Range Abnormal Flag Status Comments Panel Description: [facility] Results Facility 533 Unknown H. 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 [address] , [address], [place], [place], [id number] . tel: [phone] Family History Family Member Type Diagnosis Age At Onset No Information Payers Payer name Insurance type Covered green party ID Authoriza tion(s) No Information Social [...]
--- OUTSIDE RECORDS SUMMARY | 2024-12-02 10:50 | XMS_ITS | Clinical Summary ---
Author Organization [facility] [address] Address [address] [place] [address] Care Team Providers Care Business Analytics Director Name Role Phone Irving Montes MD Primary Care Provider Allergies Active Allergy Reactions Criticality Noted Date [...] 1 tablet (75 mcg total) by mouth box tender before breakfast 1 Active ondansetron (ZOFRAN) 4 [...] by mouth 3 (three) times a day. [id number] Indications: anxious Active ALPRAZolam (XANAX) 1 mg tabletIndicatio ns:Anxiety with Depression Take 1 mg by mouth 3 (three) times a day. RX: [id number] C4 Indications: anxiousness associated with depression 5 [...] Hyperkalemia 05/08/2023 Sepsis without acute organ dysfunction 3 Mixed hyperlipidemia 10/18/2021 Other emphysema 10/18/2021 Chronic heart failure with preserved ejection fr action 07/13/2020 Stage 3a chronic kidney disease 07/13/2020 Assessment & Plan (11/09/2020 6:57 PM WIRE BRUSHER): Impression: Chronic kidney disease which is followed by outside institution family independence case manager. Patient wishes to have 2nd opinion and to combine care at our hospital. Plan: Referral to [facility] [place] for further evaluation of her chronic kidney disease. Chronic eczematous otitis externa of both ears 0 03/30/2020 Other otitis externa, unspecified ear 03/30/2020 Hypertension 02/19/2019 Overview (02/19/2019): Hypertension Assessment & Plan (11/09/2020 6:55 PM WIRE BRUSHER): Impression: Stable chronic hypertension. Plan: Medications reviewed and recommend continuing daily antihypertensive regimen as directed by patient's primary care physician. Assessment & Plan (02/19/2019 1:16 PM CDT): Stable hypertension control with use of medications. Plan: Continue management as per primary care provider. Bilateral lower extremity edema 02/19/2019 Assessment & Plan (11/09/2020 6:56 PM WIRE BRUSHER): Impression: Chronic bilateral lower extremity edema that [...] stenosis of lumbar region 02/18/2019 Atherosclerosis of [place] of both lower extremities with intermittent claudication 08/24/2018 Pain in both lower extremities 08/18/2018 Stenosis of carotid artery 07/22/2016 Overview (12/13/2016): Carotid stenosis, asymptomatic, right Assessment & Plan (11/09/2020 6:59 PM WIRE BRUSHER): Impression: Stable asymptomatic bilateral internal carotid artery [...] 23 Overview (12/13/2016): BOB (dyspnea on exertion) Encounters Date Type Department Care Team Description 11/19/2024 Orders Only [facility] Vascular and Vein Surgery [address] [place] [address] Los Escobar MD Occlusion of right carotid artery (Primary Dx); Stenosis of left carotid artery 11/18/2024 11:00 AM CDT Office Visit [facility] Vascular and Vein Surgery [address] [place] [address] Polina Santiago PA Occlusion and stenosis of bilateral carotid arteries (Primary Dx); Mixed hyperlipidemia; Primary hypertension 11/03/2024 Results Follow-Up [facility] Cardiology at [address] [place] [address] Jeanie Gasca MD 11/02/2024 10:00 AM WIRE BRUSHER Ancillary Procedure [facility] Vascular and Vein Surgery at [address] [place] [address] Bilateral carotid artery stenosis 10/28/2024 2:00 PM WIRE BRUSHER Office Visit [facility] Cardiology [address] [place] [address] Jeanie Gasca MD Chronic heart failure with preserved ejection fraction (HCC) (Primary Dx); 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, 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, with heart failure (HCC); Atherosclerosis of [place] artery of both lower extremities with intermittent claudication; Mixed hyperlipidemia; Bilateral carotid artery stenosis 10/26/2024 Home Care Visit [address] [address] [address] [place] [address] Amanda Clark RN SN TRIAGE ENCOUNTER 10/22/2024 8:30 AM WIRE BRUSHER Home Care Visit [address] [place] [address] Christine Sherman, PT PT OASIS DISCHARGE 10/20/2024 9:00 AM WIRE BRUSHER Home Care Visit [address] [address] [place] [address] Chelo Davis, MORIAH SN DISCIPLINE DISCHARGE 10/14/2024 12:45 PM WIRE BRUSHER Orders Only [facility] 2 Wound Care [address] [place] [address] 10/13/2024 8:30 AM WIRE BRUSHER Home Care Visit [address] [address] [address] [place] [address] Christine Sherman, PT PT HOME VISIT 10/11/2024 8:30 AM WIRE BRUSHER Home Care Visit [address] [place] [address] Christine Sherman, PT PT REASSESSMENT 10/07/2024 Home Care Visit [address] [place] [address] Irene Acosta, OT TELEPHONE ENCOUNTER 10/07/2024 Home Care Visit [address] [place] [address] Irene Acosta, OT TELEPHONE ENCOUNTER 10/06/2024 8:00 AM WIRE BRUSHER Home Care Visit [address] [place] [address] Hermila Norton LPN SN HOME VISIT 10/04/2024 8:30 AM WIRE BRUSHER Home Care Visit [address] [place] [address] Christine Sherman, PT PT HOME VISIT 10/01/2024 9:00 AM WIRE BRUSHER Home Care Visit [address] [place] [address] Christine Sherman, PT PT HOME VISIT 10/01/2024 8:00 AM WIRE BRUSHER Home Care Visit [address] [place] [address] Chelo Davis RN SN HOME VISIT 09/30/2024 Home Care Visit [address] [place] [address] Irene Acosta, OT TELEPHONE ENCOUNTER 09/27/2024 Home Care Visit [address] [place] [address] Christine Sherman, PT TELEPHONE ENCOUNTER 09/24/2024 8:30 AM WIRE BRUSHER Home Care Visit [address] [place] [address] Christine Sherman, PT PT INITIAL EVALUATION 09/23/2024 Home Care Visit [address] [place] [address] Irene Acosta, OT TELEPHONE ENCOUNTER 09/22/2024 10:30 AM WIRE BRUSHER Home Care Visit [address] [place] [address] Hermila Norton LPN SN HOME VISIT 09/20/2024 Home Care Visit [address] [place] [address] Amanda Clark RN SN TRIAGE ENCOUNTER 09/17/2024 9:00 AM WIRE BRUSHER Home Care Visit [address] [place] [address] Jana Graham SN OASIS RESUMPTION OF CARE 09/17/2024 Plan of Care Documentation [address] [place] [address] 09/15/2024 Telephone [facility] Home [facility] Services [address] [place] [address] [address] [place] [address] Garth Barahona RN 09/10/2024 1:05 PM WIRE BRUSHER - 09/10/2024 2:20 PM WIRE BRUSHER Surgery [facility] [place] [address] [place] [address] Luis Alberto Matthews MD INCISION AND DRAINAGE ABSCESS - TIGRE-RECTAL 09/10/2024 12:49 PM WIRE BRUSHER Anesthesia Event [facility] OR [address] [place] [address] Devan Bajwa MD 09/08/2024 Home Care Visit [address] [place] [address] Christine Sherman, PT PT OASIS TRANSFER W/OUT DC 09/07/2024 3:45 PM WIRE BRUSHER - 09/15/2024 5:00 PM WIRE BRUSHER Hospital Encounter [facility] 4 Med Surg [address] [place] [address] Jeanie Campos MD Mecker, Wily Pagan Jr., MD Olvera, MD Cecy Cook, MD Emely Carlton Tharun, MD Mourad, Ibrahim, MD Rectal pain (Primary Dx); Anemia, unspecified type; COLIN (acute kidney injury); Cellulitis of left leg Discharge Disposition: Discharge to [facility] facility 09/06/2024 Home Care Visit [address] [place] [address] Marlys Olmedo, RN WOCN CONSULT 09/04/2024 1:50 PM WIRE BRUSHER - 09/04/2024 11:59 PM WIRE BRUSHER Hospital Encounter [id number] Discharge Disposition: Discharge to home or self care 09/04/2024 12:00 PM WIRE BRUSHER Home Care Visit [address] [place] [address] Cheryl Damon, RN SN HOME VISIT 09/04/2024 Home Care Visit [address] [place] [address] Ozzie Flynn RN SN TRIAGE ENCOUNTER 09/03/2024 10:00 AM WIRE BRUSHER Home Care Visit [address] [place] [address] Irene Acosta, OT OT INITIAL EVALUATION 09/03/2024 9:00 AM WIRE BRUSHER Home Care Visit [address] [place] [address] Christine Sherman, PT PT INITIAL EVALUATION from Last 3 Months Immunizations Immunization Administration Dates Next Due Influenza Virus Vaccine Trivalent Mdv 06/21/2017 Influenza, Quadrivalent, Spl it, Intramuscular 07/13/2020,06/08/2019 Influenza, Quadrivalent, Spl it, Preservative Free, Intramuscular 06/29/2016 Influenza, Trivalent, Adjuva nted, Intramuscular 06/21/2017 Influenza, Trivalent, High D ose, Split, Preservative Free, Intramuscular 05/25/2019,06/16/2018,05/16/2014 Influenza, Trivalent, IM (MDV) 05/23/2015,2012 Influenza, Trivalent, Preser vative Free, Intramuscular 07/03/2015 ZOSTER LIVE 07/28/2015 Surgical History Surgery Date Site/Laterality Comments TOTAL HIP ARTHROPLASTY x 2 BLADDER SURGERY 09/08/2009 - 09/07/2010 Medical History Medical History Date Comments Hypertension Hypertension Arthritis Asthma IBS (irritable bowel syndrome) Peptic ulcer Depression with anxiety Osteoporosis Allergic rhinitis GERD (gastroesophageal reflux disease) Hyperlipidemia Chronic kidney disease Diastolic dysfunction TIA (transient ischemic attack) Ear problems Anxiety COPD with emphysema (HCC) Stroke (HCC) Family History Medical History Relation Name Comments No Known Problems Father No Known Problems Mother Relation Name Status Comments Father Mother Social History Tobacco Use Types Packs/Day Years [...] materials from doctor or pharmacy Never 10/22/2024 [facility] Utilities Answer Date Recorded In the past 12 months has th e [employer], gas, oil, or water [employer] threatened to shut off services in your [...] often do you attend chur ch or faith services? Never 09/10/2024 Do you belong to any clubs o r organizations such as samaritan groups, unions, fraternal or athletic groups, or [...] place to sleep or slept in a detention (including now)? No 05/09/2023 PHQ-9 Answer Date [...] any time in the past 12 m [facility], were you homeless or living in a detention (including now)? No 09/10/2024 Personal Safety Answer Date Recorded Have you ever been in or are you currently in a harmful physical or emotional relationship or is someone making you feel afraid or unsafe? Denies 09/08/2024 Comments No Sex and Gender Information Value Date Recorded Sex Assigned at Not on file Legal Sex Female 11:52 PM WIRE BRUSHER Gender Identity Not on file Sexual Orientation Not on file Obstetrics History Last Filed Vital Signs Vital Sign Reading Time Taken Comments Blood Pressure 150/83 11/18/2024 10:48 AM CDT Pulse 83 11/18/2024 10:48 AM CDT Temperature 36.6 C (97.8 F) 10/22/2024 9:30 AM WIRE BRUSHER Respiratory Rate 18 10/22/2024 9:30 AM WIRE BRUSHER Oxygen Saturation 94% 10/28/2024 2:06 PM WIRE BRUSHER Inhaled Oxygen Concentration - - Weight 106.6 kg (235 lb) 11/18/2024 10:48 AM CDT Height 167.6 cm (5' 6 ) 11/18/2024 10:48 AM CDT Body Mass Index 37.93 11/18/2024 10:48 AM CDT Plan of Treatment Health Maintenance Due Date Last Done Comments DTaP/Tdap/Td Vaccine (1 - Tdap) 1946 Hepatitis B Screening 1953 Pneumococcal vaccine 65+ (1 of 2 - PCV) 1954 Well Visit 65+ 2000 Zoster Vaccine (2 of 3) 09/22/2015 07/28/2015 Covid-19 Vaccine (2 - 2023-2 5 season) 2024 07/20/2021 Influenza Vaccine (#1) 2024 0, 06/08/2019, 05/25/2019, Additional history exists Depression Screening 08/18/2025 08/18/2024, 08/18/20 24 Fall Risk Assessment 09/15/2025 09/15/2024 Procedures Procedure Name Priority Date/Time Associated Diagnosis Comments US CAROTIDS DUPLEX BILATERAL Schedule Routine, Read Routine (OP Routine) 11/02/2024 11:22 AM WIRE BRUSHER Bilateral carotid artery stenosis ECG 12-LEAD Routine 10/28/2024 2:38 PM WIRE BRUSHER Chronic heart failure with preserved ejection fraction (HCC) Atherosclerosis of [place] artery of both lower extremities with intermittent claudication MAGNESIUM Routine 09/15/2024 4:17 AM WIRE BRUSHER EGFR Routine 09/15/2024 4:17 AM WIRE BRUSHER BASIC METABOLIC PANEL Routine 09/15/2024 4:17 AM WIRE BRUSHER CBC WITHOUT DIFFERENTIAL Routine 09/15/2024 4:[address] PELVIS W CONTRAST ED Urgent/IP Urgent 09/14/2024 9:09 AM WIRE BRUSHER EGFR Routine 09/14/2024 3:08 AM WIRE BRUSHER BASIC METABOLIC PANEL Routine 09/14/2024 3:08 AM WIRE BRUSHER CBC WITHOUT DIFFERENTIAL Routine 09/14/2024 3:08 AM WIRE BRUSHER EGFR Routine 09/13/2024 7:30 AM WIRE BRUSHER BASIC METABOLIC PANEL Routine 09/13/2024 7:30 AM WIRE BRUSHER CBC WITHOUT DIFFERENTIAL Routine 09/13/2024 7:30 AM WIRE BRUSHER EGFR Routine 2024 7:21 AM WIRE BRUSHER MAGNESIUM Routine 2024 7:21 AM WIRE BRUSHER BASIC METABOLIC PANEL Routine 2024 7:21 AM WIRE BRUSHER CBC WITHOUT DIFFERENTIAL Routine 2024 7:21 AM WIRE BRUSHER EGFR Routine 09/11/2024 9:25 AM WIRE BRUSHER BASIC METABOLIC PANEL Routine 09/11/2024 9:25 AM WIRE BRUSHER CBC WITHOUT DIFFERENTIAL Routine 09/11/2024 9:25 AM WIRE BRUSHER AEROBIC AND ANAEROBIC CULTURE AND GRAM STAIN Routine 09/10/2024 5:49 PM WIRE BRUSHER OH AN PROCEDURE PLACEHOLDER Routine 09/10/2024 1:03 PM WIRE BRUSHER OH AN ELECTIVE SUPRAGLOTTIC AIRWAY Routine 09/10/2024 1:03 PM WIRE BRUSHER INCISION AND DRAINAGE ABSCESS - TIGRE-RECTAL 09/10/2024 12:49 PM WIRE BRUSHER perirectal abcess EGFR Routine 09/10/2024 3:31 AM WIRE BRUSHER BASIC METABOLIC PANEL Routine 09/10/2024 3:31 AM WIRE BRUSHER CBC WITHOUT DIFFERENTIAL Routine 09/10/2024 3:31 AM WIRE BRUSHER EGFR Routine 09/09/2024 11:39 AM WIRE BRUSHER BASIC METABOLIC PANEL Routine 09/09/2024 11:39 AM WIRE BRUSHER CBC WITHOUT DIFFERENTIAL Routine 09/09/2024 3:42 AM WIRE BRUSHER EGFR Routine 09/08/2024 4:54 AM WIRE BRUSHER CBC WITHOUT DIFFERENTIAL Routine 09/08/2024 4:54 AM WIRE BRUSHER COMPREHENSIVE METABOLIC PANEL Routine 09/08/2024 4:54 AM WIRE BRUSHER BLOOD CULTURE STAT 09/07/2024 5:46 PM WIRE BRUSHER SEPSIS LACTATE WITH REFLEX STAT 09/07/2024 5:45 PM WIRE BRUSHER BLOOD CULTURE STAT 09/07/2024 5:[address] ABDOMEN PELVIS WO CONTRAST ED 09/07/2024 4:53 PM WIRE BRUSHER THYROID FUNCTION CASCADE Add-On 09/07/2024 1:31 PM WIRE BRUSHER LIPID PANEL Add-On 09/07/2024 1:31 PM WIRE BRUSHER MAGNESIUM Add-On 09/07/2024 1:31 PM WIRE BRUSHER HEMOGLOBIN A1C Add-On 09/07/2024 1:31 PM WIRE BRUSHER EGFR STAT 09/07/2024 1:31 PM WIRE BRUSHER DIFFERENTIAL AUTO STAT 09/07/2024 1:3 1 PM WIRE BRUSHER CBC WITH AUTO DIFFERENTIAL STAT 09/07/2024 1:31 PM WIRE BRUSHER COMPREHENSIVE METABOLIC PANEL STAT 09/07/2024 1:31 PM WIRE BRUSHER from Last 3 Months Results * US Carotids Duplex Bilateral (11/02/2024 11:22 AM WIRE BRUSHER) Anatomical Region Laterality Modality Vascular Bilateral Ultrasound 11/02/2024 9:53 AM WIRE BRUSHER Narrative 11/02/2024 6:34 PM WIRE BRUSHER Vascular & Vein Surgery [address] [place] [address] Carotid Duplex Ultrasound Report Patient Name: ROEL LUCILLERYAN : 1935 (89y 1m) Study Date: 11/02/2024 9:53:15 AM Gender: F Flakeboard Line Tender: Location: [facility] Ref Provider: JEANIE GASCA Quality: Adequate Order [...] By: Los Escobar MD 11/02/2024 6:29:32 PM WIRE BRUSHER Procedure Note Los Escobar MD - 11/02/2024 Vascular & Vein Surgery [address] [facility] [place] [address] Carotid Duplex Ultrasound Report Patient Name: ROEL LUCILLERYAN CASPER : 1935 (89y 1m) Study Date: 11/02/2024 9:53:15 AM Gender: F Flakeboard Line Tender: Location: [facility] Ref Provider: EMELIA,JEANIE Quality: Adequate Order Provider: JEANIE GASCA PROCEDURES: [...] internal carotid artery disease is consistent with [id number]% stenosis. 2. Normal, antegrade flow is noted [...] By: Los Escobar MD 11/02/2024 6:29:32 PM WIRE BRUSHER us Jeanie Gasca MD IMG US PROCEDURES Final R esult * ECG 12 lead (10/28/2024 2:38 PM WIRE BRUSHER) us Jeanie Gasca MD ECG ORDERABLES Final Res ult * (ABNORMAL) eGFR (09/15/2024 4:17 AM WIRE BRUSHER) eGFR 43(L) >=60 mL/min/1. 73 m2 Comment: [...] was last reviewed 2021. Testing performed by: [address] [address] Blood 09/15/2024 4:17 AM WIRE BRUSHER 09/15/2024 4:35 AM WIRE BRUSHER us Lexus Sam MD LAB BLOOD ORDERABLES Final Result [facility] [address] Department [place] [address] * (ABNORMAL) CBC without differential (09/15/2024 4:17 AM WIRE BRUSHER) Pathologist [facility] WBC 10.4(H) 3.8 - 9.9 K/cumm Comment:Testing performed by : [address] [address] Hgb 9.7(L) 11.9 - 15.5 g/dL [facility] Comment:Testing performed by : [address] [address] Hct 30.0(L) 35.6 - 45.5 % [facility] Comment:Testing performed by : [address] [address] Plt 660(H) 150 - 400 K/cumm [facility] Comment:Testing performed by : [address] [address] MPV 9.1 9.1 - 12.3 fL [facility] Comment:Testing performed by : [address] [address] RBC 3.46(L) 3.90 - 5.20 M/cumm [facility] Comment:Testing performed by : [address] [address] MCV 86.7 81.3 - 96.4 fL [facility] Comment:Testing performed by : [address], [address] MCH 28.0 27.1 - 33.3 pg [facility] Comment:Testing performed by : [address] [address] MCHC 32.3 32.3 - 35.7 g/dL [facility] Comment:Testing performed by : [address] [address] RDW CV 14.6 11.1 - 14.9 % [facility] Comment:Testing performed by : [address], [address] RDW SD 45.8 35.7 - 48.1 fL [facility] Comment:Testing performed by : [address] [address] NRBC abs 0.00 0.00 - 0.01 K/cumm [facility] Comment:Testing performed by : [address] [address] Blood 09/15/2024 4:17 AM WIRE BRUSHER 09/15/2024 4:42 AM WIRE BRUSHER us Lexus Sam MD LAB BLOOD ORDERABLES Final Result [facility] [address] Department [place] [address] * Magnesium (09/15/2024 4:17 AM WIRE BRUSHER) [facility] Signature Magnesium 1.4 1.4 - 2.5 mg/dL Comment:Testing performed by : [address] [address] Blood 09/15/2024 4:17 AM WIRE BRUSHER 09/15/2024 4:35 AM WIRE BRUSHER us Falguni Best MD LAB BLOOD ORDERABLES Final Res ult [facility] [address] Department [place] [address] * (ABNORMAL) Basic metabolic panel (09/15/2024 4:17 AM WIRE BRUSHER) [facility] Sodium 140 135 - 145 mmol/L Comment:Testing performed by : [address] [address] Potassium, pl 3.7 3.3 - 4.9 mmol/L [facility] Comment:Testing performed by : [address] [address] Chloride 102 97 - 110 mmol/L [facility] Comment:Testing performed by : [address] [address] CO2 24 22 - 32 mmol/L [facility] Comment:Testing performed by : [address] [address] Anion gap 14 2 - 15 mmol/L [facility] Comment:Testing performed by : [address] [address] BUN 16 6 - 25 mg/dL [facility] Comment:Testing performed by : [address] [address] Creatinine 1.20(H) 0.60 - 1.10 mg/dL [facility] Comment:Testing performed by : [address] [address] Glucose 117 70 - 199 mg/dL [facility] [...] was last revised 2022. Testing performed by: [facility], [address] [place] [address]., [address] Calcium 9.2 8.5 - 10.3 mg/dL [facility] Comment:Testing performed by : [facility], [address] [place] [address]., [address] Blood 09/15/2024 4:17 AM WIRE BRUSHER 09/15/2024 4:35 AM WIRE BRUSHER Lexus Sam MD LAB BLOOD ORDERABLES Final Result [facility] [address] Department [place] [address] * CT Pelvis W Contrast (09/14/2024 9:09 AM WIRE BRUSHER) Anatomical Region Laterality Modality Body N/A Computed Tomogra phy 09/14/2024 9:17 AM WIRE BRUSHER Narrative 09/14/2024 9:30 AM WIRE BRUSHER EXAM DESCRIPTION: CT PELVIS W CONTRAST REASON [...] Teddy Mei M.D. KR: PHAM Report ID: [id number] Reading Location: [place] [address] Procedure Note Teddy Mei MD - 09/14/2024 [...] Teddy Mei M.D. KR: PHAM Report ID: [id number] Reading Location: [place] [address] us Teddy Wiley MD IMG CT PROCEDURES Final Resu lt * (ABNORMAL) eGFR (09/14/2024 3:08 AM WIRE BRUSHER) eGFR 43(L) >=60 mL/min/1. 73 m2 Comment: [...] was last reviewed 2021. Testing performed by: [facility], [address] [place] [address], [place]., [address] Blood 09/14/2024 3:08 AM WIRE BRUSHER 09/14/2024 3:45 AM WIRE BRUSHER us Lexus Sam MD LAB BLOOD ORDERABLES Final Result [facility] [address] Department [place] [address] * (ABNORMAL) CBC without differential (09/14/2024 3:08 AM WIRE BRUSHER) [facility] Signature WBC 12.1(H) 3.8 - 9.9 K/cumm Comment:Testing performed by : [address] [address] Hgb 9.1(L) 11.9 - 15.5 g/dL [facility] Comment:Testing performed by : [address] [address] Hct 28.1(L) 35.6 - 45.5 % [facility] Comment:Testing performed by : [address] [address] Plt 609(H) 150 - 400 K/cumm [facility] Comment:Testing performed by : [address] [address] MPV 9.5 9.1 - 12.3 fL [facility] Comment:Testing performed by : [address] [address] RBC 3.24(L) 3.90 - 5.20 M/cumm [facility] Comment:Testing performed by : [address] [address] MCV 86.7 81.3 - 96.4 fL [facility] Comment:Testing performed by : [address] [address] MCH 28.1 27.1 - 33.3 pg [facility] Comment:Testing performed by : [address] [address] MCHC 32.4 32.3 - 35.7 g/dL [facility] Comment:Testing performed by : [address], [address] RDW CV 14.4 11.1 - 14.9 % [facility] Comment:Testing performed by : [address], [address] RDW SD 45.2 35.7 - 48.1 fL [facility] Comment:Testing performed by : [address] [address] NRBC abs 0.00 0.00 - 0.01 K/cumm [facility] Comment:Testing performed by : [address] [address] Blood 09/14/2024 3:08 AM WIRE BRUSHER 09/14/2024 4:18 AM WIRE BRUSHER Lexus Sam MD LAB BLOOD ORDERABLES Final Result [facility] [address] Department [place] [address] * (ABNORMAL) Basic metabolic panel (09/14/2024 3:08 AM WIRE BRUSHER) Sodium 140 135 - 145 mmol/L Comment:Testing performed by : [address] [address] Potassium, pl 3.6 3.3 - 4.9 mmol/L [facility] Comment:Testing performed by : [address] [address] Chloride 102 97 - 110 mmol/L [facility] Comment:Testing performed by : [address] [address] CO2 25 22 - 32 mmol/L [facility] Comment:Testing performed by : [address] [address] Anion gap 13 2 - 15 mmol/L [facility] Comment:Testing performed by : [address] [address] BUN 17 6 - 25 mg/dL [facility] Comment:Testing performed by : [address] [address] Creatinine 1.20(H) 0.60 - 1.10 mg/dL [facility] Comment:Testing performed by : [address] [address] Glucose 121 70 - 199 mg/dL [facility] [...] was last revised 2022. Testing performed by: [facility], [address] [place] [address]., [address] Calcium 9.1 8.5 - 10.3 mg/dL [facility] Comment:Testing performed by : [address] [address] Blood 09/14/2024 3:08 AM WIRE BRUSHER 09/14/2024 3:45 AM WIRE BRUSHER Lexus Sam MD LAB BLOOD ORDERABLES Final Result [facility] [address] Department [place] [address] * (ABNORMAL) eGFR (09/13/2024 7:30 AM WIRE BRUSHER) eGFR 39(L) >=60 mL/min/1. 73 m2 Comment: [...] was last reviewed 2021. Testing performed by: [address] [address] Blood 09/13/2024 7:3 0 AM WIRE BRUSHER 09/13/2024 7:50 AM WIRE BRUSHER Leuxs Sam MD LAB BLOOD ORDERABLES Final Result [facility] [address] Department [place] [address] * (ABNORMAL) CBC without differential (09/13/2024 7:30 AM WIRE BRUSHER) WBC 11.5(H) 3.8 - 9.9 K/cumm Comment:Testing performed by : [address] [address] Hgb 8.4(L) 11.9 - 15.5 g/dL [facility] Comment:Testing performed by : [address] [address] Hct 25.6(L) 35.6 - 45.5 % [facility] Comment:Testing performed by : [address] [address] Plt 521(H) 150 - 400 K/cumm [facility] Comment:Testing performed by : [address] [address] MPV 9.3 9.1 - 12.3 fL [facility] Comment:Testing performed by : [address] [address] RBC 2.93(L) 3.90 - 5.20 M/cumm [facility] Comment:Testing performed by : [address] [address] MCV 87.4 81.3 - 96.4 fL [facility] Comment:Testing performed by : [address] [address] MCH 28.7 27.1 - 33.3 pg HANNAH Comment:Testing performed by : [address] [address] MCHC 32.8 32.3 - 35.7 g/dL HANNAH LEA Comment:Testing performed by : [address] [address] RDW CV 14.5 11.1 - 14.9 % HANNAH LEA Comment:Testing performed by : [address] [address] RDW SD 45.6 35.7 - 48.1 fL HANNAH LEA Comment:Testing performed by : [address] [address] NRBC abs 0.00 0.00 - 0.01 K/cumm HANNAH LEA Comment:Testing performed by : [address] [address] Blood 09/13/2024 7:30 AM WIRE BRUSHER 09/13/2024 7:50 AM WIRE BRUSHER Lexus Sam MD LAB BLOOD ORDERABLES Final Result HANNAH [address] [facility] Department [place] [address] * (ABNORMAL) Basic metabolic panel (09/13/2024 7:30 AM WIRE BRUSHER) Sodium 140 135 - 145 mmol/L Comment:Testing performed by : [address] [address] Potassium, pl 3.5 3.3 - 4.9 mmol/L HANNAH LEA Comment:Testing performed by : [address] [address] Chloride 104 97 - 110 mmol/L HANNAH LEA Comment:Testing performed by : [address] [address] CO2 25 22 - 32 mmol/L HANNAH LEA Comment:Testing performed by : [address] [address] Anion gap 11 2 - 15 mmol/L HANNAH LEA Comment:Testing performed by : [address] [address] BUN 15 6 - 25 mg/dL HANNAH LEA Comment:Testing performed by : [address] [address] Creatinine 1.30(H) 0.60 - 1.10 mg/dL HANNAH LEA Comment:Testing performed by : [address] [address] Glucose 101 70 - 199 mg/dL HANNAH [...] was last revised 2022. Testing performed by: [address] [address] Calcium 8.8 8.5 - 10.3 mg/dL HANNAH Comment:Testing performed by : [address] [address] Blood 09/13/2024 7:30 AM WIRE BRUSHER 09/13/2024 7:50 AM WIRE BRUSHER Lexus Sam MD LAB BLOOD ORDERABLES Final Result HANNAH [address] [facility] Department of Laboratories [place], [place] [id number] * (ABNORMAL) eGFR (2024 7:21 AM WIRE BRUSHER) eGFR 43(L) >=60 mL/min/1. 73 m2 Comment: [...] was last reviewed 2021. Testing performed by: [address] [address] Blood 2024 7:21 AM WIRE BRUSHER 2024 7:27 AM WIRE BRUSHER us Lexus Sam MD LAB BLOOD ORDERABLES Final Result [facility] Department of Laboratories [place], [place] [id number] * (ABNORMAL) CBC without differential (2024 7:21 AM WIRE BRUSHER) WBC 11.6(H) 3.8 - 9.9 K/cumm Comment:Testing performed by : [address] [address] Hgb 8.3(L) 11.9 - 15.5 g/dL HANNAH LEA Comment:Testing performed by : [address] [address] Hct 25.3(L) 35.6 - 45.5 % HANNAH LEA Comment:Testing performed by : [address] [address] Plt 482(H) 150 - 400 K/cumm HANNAH LEA Comment:Testing performed by : [address] [address] MPV 9.3 9.1 - 12.3 fL HANNAH LEA Comment:Testing performed by : [address] [address] RBC 2.91(L) 3.90 - 5.20 M/cumm HANNAH LEA Comment:Testing performed by : [address] [address] MCV 86.9 81.3 - 96.4 fL HANNAH LEA Comment:Testing performed by : [address] [address] MCH 28.5 27.1 - 33.3 pg HANNAH LEA Comment:Testing performed by : [address] [address] MCHC 32.8 32.3 - 35.7 g/dL HANNAH LEA Comment:Testing performed by : [address], [address] RDW CV 14.5 11.1 - 14.9 % HANNAH Comment:Testing performed by : [address], [address] RDW SD 46.2 35.7 - 48.1 fL HANNAH Comment:Testing performed by : [address] [address] NRBC abs 0.00 0.00 - 0.01 K/cumm HANNAH Comment:Testing performed by : [address], [address] Blood 2024 7:21 AM WIRE BRUSHER 2024 7:27 AM WIRE BRUSHER Lexus Sam MD LAB BLOOD ORDERABLES Final Result [facility] [address] [facility] Department of Laboratories [place], [place] [id number] * Magnesium (2024 7:21 AM WIRE BRUSHER) Magnesium 1.4 1.4 - 2.5 mg/dL Comment:Testing performed by : [address] [address] Blood 2024 7:21 AM WIRE BRUSHER 2024 7:27 AM WIRE BRUSHER Candida Han MD LAB BLOOD ORDERABLES Final R esult HANNAH [address] [facility] Department [place] [address] * (ABNORMAL) Basic metabolic panel (2024 7:21 AM WIRE BRUSHER) Sodium 140 135 - 145 mmol/L Comment:Testing performed by : [address] [address] Potassium, pl 3.6 3.3 - 4.9 mmol/L HANNAH Comment:Testing performed by : [address] [address] Chloride 104 97 - 110 mmol/L HANNAH Comment:Testing performed by : [address] [address] CO2 25 22 - 32 mmol/L HANNAH Comment:Testing performed by : [address] [address] Anion gap 11 2 - 15 mmol/L HANNAH Comment:Testing performed by : [address] [address] BUN 14 6 - 25 mg/dL HANNAH Comment:Testing performed by : [address] [address] Creatinine 1.20(H) 0.60 - 1.10 mg/dL HANNAH Comment:Testing performed by : [address] [address] Glucose 103 70 - 199 mg/dL HANNAH [...] was last revised 2022. Testing performed by: [address] [place] [address] Calcium 9.0 8.5 - 10.3 mg/dL HANNAH LEA Comment:Testing performed by : [address] [address] Blood 2024 7:21 AM WIRE BRUSHER 2024 7:27 AM WIRE BRUSHER Lexus Sam MD LAB BLOOD ORDERABLES Final Result Performing Organization Address [facility] Co de Phone Number HANNAH [address] [facility] Department [place] [address] * (ABNORMAL) eGFR (09/11/2024 9:25 AM WIRE BRUSHER) eGFR 48(L) >=60 mL/min/1. 73 m2 Comment: [...] was last reviewed 2021. Testing performed by: [address] [address] Blood 09/11/2024 9:25 AM WIRE BRUSHER 09/11/2024 10:27 AM WIRE BRUSHER Lexus Sam MD LAB BLOOD ORDERABLES Final Result Performing Organization Address City/[facility]/ZIP Co de Phone Number HANNAH [address] Department [place] [address] * (ABNORMAL) CBC without differential (09/11/2024 9:25 AM WIRE BRUSHER) [facility] WBC 12.9(H) 3.8 - 9.9 K/cumm Comment:Testing performed by : [address] [address] Hgb 8.4(L) 11.9 - 15.5 g/dL HANNAH Comment:Testing performed by : [address] [address] Hct 26.2(L) 35.6 - 45.5 % HANNAH Comment:Testing performed by : [address] [address] Plt 471(H) 150 - 400 K/cumm HANNAH Comment:Testing performed by : [address] [address] MPV 9.7 9.1 - 12.3 fL HANNAH Comment:Testing performed by : [address] [address] RBC 2.97(L) 3.90 - 5.20 M/cumm HANNAH Comment:Testing performed by : [address] [address] MCV 88.2 81.3 - 96.4 fL HANNAH Comment:Testing performed by : [address] [address] MCH 28.3 27.1 - 33.3 pg HANNAH Comment:Testing performed by : [address] [address] MCHC 32.1(L) 32.3 - 35.7 g/dL HANNAH Comment:Testing performed by : [address], [address] RDW CV 14.4 11.1 - 14.9 % HANNAH Comment:Testing performed by : [address] [address] RDW SD 46.1 35.7 - 48.1 fL HANNAH Comment:Testing performed by : [address] [address] NRBC abs 0.00 0.00 - 0.01 K/cumm HANNAH Comment:Testing performed by : [address] [address] Blood 09/11/2024 9:25 AM WIRE BRUSHER 09/11/2024 10:27 AM WIRE BRUSHER Lexus Sam MD LAB BLOOD ORDERABLES Final Result [facility] [address] [facility] Department [place] [address] * (ABNORMAL) Basic metabolic panel (09/11/2024 9:25 AM WIRE BRUSHER) Sodium 139 135 - 145 mmol/L Comment:Testing performed by : [address] [address] Potassium, pl 3.6 3.3 - 4.9 mmol/L HANNAH Comment:Testing performed by : [address] [address] Chloride 104 97 - 110 mmol/L HANNAH Comment:Testing performed by : [address] [address] CO2 21(L) 22 - 32 mmol/L HANNAH Comment:Testing performed by : [address] [address] Anion gap 14 2 - 15 mmol/L HANNAH Comment:Testing performed by : [address] [address] BUN 15 6 - 25 mg/dL HANNAH Comment:Testing performed by : [address] [address] Creatinine 1.10 0.60 - 1.10 mg/dL HANNAH Comment:Testing performed by : [address] [address] Glucose 183 70 - 199 mg/dL HANNAH [...] was last revised 2022. Testing performed by: [facility], [address] [place] [address]., [address] Calcium 8.7 8.5 - 10.3 mg/dL HANNAH Comment:Testing performed by : [address] [address] Blood 09/11/2024 9:25 AM WIRE BRUSHER 09/11/2024 10:27 AM WIRE BRUSHER Lexus Sam MD LAB BLOOD ORDERABLES Final Result [facility]ANNAH [address] [facility] Department [place] [address] * (ABNORMAL) Aerobic and anaerobic culture and gram stain Abscess Anal (09/10/2024 5:49 PM WIRE BRUSHER) Direct Specimen Exam Stain: Few polymorphonuclear leukocytes seen. Few mixed bacterial tania seen on Gram stain. Comment:Testing performed by : [facility], [address] [place] [address] Report Final Report: Few Mixed aerobic and anaerobic microorganisms Includes the following: Few Bacteroides uniformis Few Bacteroides stercoris Rare Pseudomonas aeruginosa (.) HANNAH Comment:Testing performed by : [facility], [address] [place] [address] Organism MIXED AEROBIC AND ANAEROBIC MICROORGANISMS HANNAH Organism PSEUDOMONAS AERUGINOSA HANNAH Organism BACTEROIDES UNIFORMIS HANNAH Organism BACTEROIDES STERCORIS HANNAH Abscess (Anal) 09/10/2024 5: 49 PM WIRE BRUSHER 09/10/2024 8:19 PM WIRE BRUSHER Narrative HANNAH - 09/16/2024 9:32 AM WIRE BRUSHER Perirectal abscess Specimen received on an ESwab. Testing performed by [facility] ([phone]) Specimens submitted from normally sterile body sites [...] ETATION Susceptible Pseudomonas aeruginosa Tobramycin INTERPRETATION Susceptible Candida Han MD LAB MICROBIOLOGY - GENERAL O RDERABLES Final Result [facility] Department [place] [address] * OH AN ELECTIVE SUPRAGLOTTIC AIRWAY, OH AN PROCEDURE PLACEHOLDER (09/10/2024 1:03 PM WIRE BRUSHER) Narrative Jeanie Willis CRNA - 09/10/2024 1:03 PM WIRE BRUSHER Jeanie Willis CRNA 09/10/2024 1:04 PM Airway Patient location: OR Urgency: elective Indications for airway management: anesthesia Difficult airway: no Staff: Supervising provider: Devan Bajwa MD Placed by: CREATIVE WRITER: Jeanie Willis CRNA Emergent airway documentation: Risks [...] SGA size: 4 Number of attempts: 1 Devan Bajwa MD ANESTHESIA ORDERABLES Final Resu lt * (ABNORMAL) eGFR (09/10/2024 3:31 AM WIRE BRUSHER) [facility] eGFR 40(L) >=60 mL/min/1. 73 m2 Comment: [...] was last reviewed 2021. Testing performed by: [address] [address] Blood 09/10/2024 3:31 AM WIRE BRUSHER 09/10/2024 4:16 AM WIRE BRUSHER Lexus Sam MD LAB BLOOD ORDERABLES Final Result HANNAH [address] [facility] Department [place] [address] * (ABNORMAL) CBC without differential (09/10/2024 3:31 AM WIRE BRUSHER) [facility] WBC 9.5 3.8 - 9.9 K/cumm Comment:Testing performed by : [address] [address] Hgb 8.6(L) 11.9 - 15.5 g/dL HANNAH LEA Comment:Testing performed by : [address] [address] Hct 26.4(L) 35.6 - 45.5 % HANNAH LEA Comment:Testing performed by : [address] [address] Plt 416(H) 150 - 400 K/cumm HANNAH Comment:Testing performed by : [address] [address] MPV 9.6 9.1 - 12.3 fL HANNAH Comment:Testing performed by : [address] [address] RBC 3.01(L) 3.90 - 5.20 M/cumm HANNAH Comment:Testing performed by : [address] [address] MCV 87.7 81.3 - 96.4 fL HANNAH Comment:Testing performed by : [address] [address] MCH 28.6 27.1 - 33.3 pg HANNAH Comment:Testing performed by : [address] [address] MCHC 32.6 32.3 - 35.7 g/dL HANNAH Comment:Testing performed by : [address], [address] RDW CV 14.4 11.1 - 14.9 % HANNAH Comment:Testing performed by : [address] [address] RDW SD 45.7 35.7 - 48.1 fL HANNAH Comment:Testing performed by : [address] [address] NRBC abs 0.00 0.00 - 0.01 K/cumm HANNAH Comment:Testing performed by : [address] [address] Blood 09/10/2024 3:31 AM WIRE BRUSHER 09/10/2024 4:16 AM WIRE BRUSHER us Lexus Sam MD LAB BLOOD ORDERABLES Final Result [facility] [address] [facility] Department of Laboratories [place], [place] [id number] * (ABNORMAL) Basic metabolic panel (09/10/2024 3:31 AM WIRE BRUSHER) Sodium 140 135 - 145 mmol/L Comment:Testing performed by : [address] [address] Potassium, pl 3.9 3.3 - 4.9 mmol/L HANNAH Comment:Testing performed by : [address], [place]., [address] Chloride 106 97 - 110 mmol/L HANNAH Comment:Testing performed by : [address], [place]., [address] CO2 24 22 - 32 mmol/L HNANAH Comment:Testing performed by : [address], [place]., [address] Anion gap 10 2 - 15 mmol/L HANNAH Comment:Testing performed by : [address], [place]., [address] BUN 19 6 - 25 mg/dL HANNAH Comment:Testing performed by : [address], [place]., [address] Creatinine 1.30(H) 0.60 - 1.10 mg/dL HANNAH Comment:Testing performed by : [address], [place]., [address] Glucose 118 70 - 199 mg/dL HANNAH Comment: Interpretive [...] was last revised 2022. Testing performed by: [address], [place]., [address] Calcium 9.1 8.5 - 10.3 mg/dL HANNAH Comment:Testing performed by : [address], [place]., [address] Blood 09/10/2024 3:31 AM WIRE BRUSHER 09/10/2024 4:16 AM WIRE BRUSHER Lexus Sam MD LAB BLOOD ORDERABLES Final Result Performing Organization Address [facility] Co de Phone Number HANNAH [address] [address] * (ABNORMAL) eGFR (09/09/2024 11:39 AM WIRE BRUSHER) eGFR 36(L) >=60 mL/min/1. 73 m2 Comment: [...] was last reviewed 2021. Testing performed by: [address] [address] Blood 09/09/2024 11:3 9 AM WIRE BRUSHER 09/09/2024 11:50 AM WIRE BRUSHER Lexus Sam MD LAB BLOOD ORDERABLES Final Result Performing Organization Address City/[facility] Co de Phone Number HANNAH [address] [address] * (ABNORMAL) Basic metabolic panel (09/09/2024 11:39 AM WIRE BRUSHER) Sodium 138 135 - 145 mmol/L Comment:Testing performed by : [address] [address] Potassium, pl 3.3 3.3 - 4.9 mmol/L HANNAH Comment:Testing performed by : [address] [address] Chloride 103 97 - 110 mmol/L HANNAH Comment:Testing performed by : [address], [place]., [address] CO2 25 22 - 32 mmol/L HANNAH Comment:Testing performed by : [address] [address] Anion gap 10 2 - 15 mmol/L [facility]] Comment:Testing performed by : [address] [address] BUN 23 6 - 25 mg/dL HANNAH Comment:Testing performed by : [address] [address] Creatinine 1.40(H) 0.60 - 1.10 mg/dL HANNAH Comment:Testing performed by : [address] [address] Glucose 131 70 - 199 mg/dL [facility] Comment: Interpretive Data Fasting glucose >/= 126 [...] was last revised 2022. Testing performed by: [address] [address] Calcium 8.9 8.5 - 10.3 mg/dL HANNAH Comment:Testing performed by : [address] [address] Blood 09/09/2024 11:3 9 AM WIRE BRUSHER 09/09/2024 11:50 AM WIRE BRUSHER Lexus Sam MD LAB BLOOD ORDERABLES Final Result [facility] [address] [facility] Department [place] [address] * (ABNORMAL) CBC without differential (09/09/2024 3:42 AM WIRE BRUSHER) [facility] WBC 10.0(H) 3.8 - 9.9 K/cumm Comment:Testing performed by : [address] [address] Hgb 8.3(L) 11.9 - 15.5 g/dL HANNAH Comment:Testing performed by : [address] [address] Hct 25.4(L) 35.6 - 45.5 % HANNAH Comment:Testing performed by : [address] [address] Plt 363 150 - 400 K/cumm HANNAH Comment:Testing performed by : [address] [address] MPV 9.6 9.1 - 12.3 fL HANNAH Comment:Testing performed by : [address] [address] RBC 2.90(L) 3.90 - 5.20 M/cumm HANNAH Comment:Testing performed by : [address] [address] MCV 87.6 81.3 - 96.4 fL HANNAH Comment:Testing performed by : [address] [address] MCH 28.6 27.1 - 33.3 pg HANNAH Comment:Testing performed by : [address] [address] MCHC 32.7 32.3 - 35.7 g/dL HANNAH Comment:Testing performed by : [address] [address] RDW CV 14.0 11.1 - 14.9 % HANNAH Comment:Testing performed by : [address], [address] RDW SD 44.8 35.7 - 48.1 fL HANNAH LEA Comment:Testing performed by : [address] [address] NRBC abs 0.00 0.00 - 0.01 K/cumm HANNAH LEA Comment:Testing performed by : [facility], [address] [place] [address]., [address] Blood 09/09/2024 3:42 AM WIRE BRUSHER 09/09/2024 3:58 AM WIRE BRUSHER us Lexus Sam MD LAB BLOOD ORDERABLES Final Result HANNAH [address] [facility] Department [place] [address] * (ABNORMAL) eGFR (09/08/2024 4:54 AM WIRE BRUSHER) eGFR 31(L) >=60 mL/min/1. 73 m2 Comment: [...] was last reviewed 2021. Testing performed by: [address] [address] Blood 09/08/2024 4:54 AM WIRE BRUSHER 09/08/2024 4:59 AM WIRE BRUSHER us Brielle Olvera MD LAB BLOOD ORDER PRUDENCE Final Result [facility] [address] [facility] Department [place] [address] * (ABNORMAL) CBC without differential (09/08/2024 4:54 AM WIRE BRUSHER) WBC 12.6(H) 3.8 - 9.9 K/cumm Comment:Testing performed by : [address] [address] Hgb 8.8(L) 11.9 - 15.5 g/dL HANNAH Comment:Testing performed by : [address], [address] Hct 27.2(L) 35.6 - 45.5 % HANNAH Comment:Testing performed by : [address] [address] Plt 376 150 - 400 K/cumm HANNAH Comment:Testing performed by : [address] [address] MPV 9.7 9.1 - 12.3 fL HANNAH Comment:Testing performed by : [address] [address] RBC 3.13(L) 3.90 - 5.20 M/cumm HANNAH Comment:Testing performed by : [address] [address] MCV 86.9 81.3 - 96.4 fL HANNAH Comment:Testing performed by : [address] [address] MCH 28.1 27.1 - 33.3 pg HANNAH Comment:Testing performed by : [address], [address] MCHC 32.4 32.3 - 35.7 g/dL HANNAH Comment:Testing performed by : [address], [address] RDW CV 14.1 11.1 - 14.9 % HANNAH Comment:Testing performed by : [address] [place] [address] RDW SD 43.9 35.7 - 48.1 fL HANNAH LEA Comment:Testing performed by : [address] [address] NRBC abs 0.00 0.00 - 0.01 K/cumm HANNAH LEA Comment:Testing performed by : [address] [address] Blood 09/08/2024 4:54 AM WIRE BRUSHER 09/08/2024 4:59 AM WIRE BRUSHER Brielle Olvera MD LAB BLOOD ORDER PRUDENCE Final Result [facility]ANNAH LEA [address] [facility] Department [place] [address] * (ABNORMAL) Comprehensive metabolic panel (09/08/2024 4:54 AM WIRE BRUSHER) Sodium 142 135 - 145 mmol/L Comment:Testing performed by : [address] [address] Potassium, pl 3.8 3.3 - 4.9 mmol/L HANNAH LEA Comment:Testing performed by : [address] [address] Chloride 103 97 - 110 mmol/L HANNAH LEA Comment:Testing performed by : [address] [address] CO2 26 22 - 32 mmol/L HANNAH Comment:Testing performed by : [address] [address] Anion gap 13 2 - 15 mmol/L HANNAH Comment:Testing performed by : [address] [address] BUN 34(H) 6 - 25 mg/dL HANNAH LEA Comment:Testing performed by : [address] [address] Creatinine 1.60(H) 0.60 - 1.10 mg/dL HANNAH LEA Comment:Testing performed by : [address] [address] Glucose 101 70 - 199 mg/dL HANNAH [...] was last revised 2022. Testing performed by: [address] [address] Calcium 9.0 8.5 - 10.3 mg/dL HANNAH Comment:Testing performed by : [address] [address] Bilirubin, total 0.3 0.1 - 1.2 mg/dL HANNAH Comment:Testing performed by : [address] [address] Protein, pl 6.2(L) 6.5 - 8.5 g/dL [facility] Comment:Testing performed by : [address] [address] Albumin 3.3(L) 3.5 - 5.0 g/dL [facility] Comment:Testing performed by : [address] [address] Alk phos 100 40 - 130 Units/L [facility] Comment:Testing performed by : [address] [address] ALT 9 7 - 45 Units/L [facility] Comment:Testing performed by : [address] [address] AST 13 10 - 45 Units/L HANNAH Comment:Testing performed by : [address] [address] Blood 09/08/2024 4:54 AM WIRE BRUSHER 09/08/2024 4:59 AM WIRE BRUSHER Brielle Olvera MD LAB BLOOD ORDER PRUDENCE Final Result Performing Organization Address City/[facility]/ZIP Co de Phone Number HANNAH LEA [facility] [facility] [place] [address] * Blood culture Blood Peripheral (09/07/2024 5:46 PM WIRE BRUSHER) Report Final Report: No growth Comment:Testing performed by : [facility], [address] [place] [address] Blood (Peripheral) 09/07/2024 5:46 PM WIRE BRUSHER 09/07/2024 7:25 PM WIRE BRUSHER Narrative HANNAH - 2024 7:00 AM WIRE BRUSHER From a different site than #1. Draw [...] performance characteristics have been verified by the [facility]. For questions about this culture, contact the Microbiology Laboratory at [phone]. Interpretive data was last revised on 24. Jeanie aCmpos MD LAB MICROBIOLOGY - GEN ERAL ORDERABLES Final Result Performing Organization Address City/[facility]/ZIP Co de Phone Number HANNAH [address] [facility] [place] [address] * Sepsis Lactate w/ Reflex (09/07/2024 5:45 PM WIRE BRUSHER) Sepsis Lactate 1.2 0.7 - 2.0 mmol/L Comment:Testing performed by : [facility], [address] [place] [address], [place]., [address] Blood 09/07/2024 5:45 PM WIRE BRUSHER 09/07/2024 5:51 PM WIRE BRUSHER us Jeanie Campos MD LAB BLOOD ORDERABLES F inal Result [facility] [address] [facility] Department [place] [address] * Blood culture Blood Peripheral (09/07/2024 5:45 PM WIRE BRUSHER) Report Final Report: No growth Comment:Testing performed by : [facility], [address] [place]., [address] Blood (Peripheral) 09/07/2024 5:45 PM WIRE BRUSHER 09/07/2024 7:25 PM WIRE BRUSHER Narrative HANNAH - 2024 7:00 AM WIRE BRUSHER Draw Blood cultures before administration of Antibiotics [...] performance characteristics have been verified by the [facility]. For questions about this culture, contact the Microbiology Laboratory at [phone]. Interpretive data was last revised on 24. us Jeanie Campos MD LAB MICROBIOLOGY - GEN ERAL ORDERABLES Final Result [facility]ANNAH [address] [facility] Department [place] [address] * CT Abdomen Pelvis WO Contrast (09/07/2024 4:53 PM WIRE BRUSHER) Anatomical Region Laterality Modality Body N/A Computed Tomogra phy 09/07/2024 5:23 PM WIRE BRUSHER Narrative 09/07/2024 5:37 PM WIRE BRUSHER EXAM DESCRIPTION: CT ABDOMEN PELVIS WO CONTRAST [...] Electronically signed by Raine Romo M.D. TW: TW Report ID: [id number] Reading Location: [id number] Procedure Note Raine Romo MD - 09/07/2024 [...] Raine Romo M.D. TW: DARRIUS Report ID: [id number] Reading Location: [id number] Casi Jameson NP IMG CT PROCEDURES Final Result * (ABNORMAL) eGFR (09/07/2024 1:31 PM WIRE BRUSHER) eGFR 20(L) >=60 mL/min/1. 73 m2 Comment: [...] was last reviewed 2021. Testing performed by: [facility], [address] [place] [address], [place]., [address] Blood 09/07/2024 1:31 PM WIRE BRUSHER 09/07/2024 1:49 PM WIRE BRUSHER Casi Jameson ORTHOTIC/PROSTHETIC CLINICIAN LAB BLOOD ORDERABLES Final Resul t HANNAH [address] [facility] Department [place] [address] * (ABNORMAL) Differential, auto (09/07/2024 1:31 PM WIRE BRUSHER) Neutrophil abs 10.9(H) 1.5 - 6.5 K/cumm Comment:Testing performed by : [address] [address] Imm gran abs 0.3(H) 0.0 - 0.1 K/cumm HANNAH Comment:Testing performed by : [address] [address] Lymphocyte abs 1.5 0.8 - 3.3 K/cumm HANNAH Comment:Testing performed by : [address] [address] Monocyte abs 1.9(H) 0.2 - 0.8 K/cumm HANNAH Comment:Testing performed by : [address] [address] Eosinophil abs 0.5 0.0 - 0.5 K/cumm HANNAH Comment:Testing performed by : [address] [address] Basophil abs 0.1 0.0 - 0.1 K/cumm HANNAH Comment:Testing performed by : [address] [address] Neutrophil pct 72.2 % HANNAH Comment: Interpretive Data Percent cell count reference ranges are not reported, since discordance with absolute values may lead to misinterpretation of CBC data. Current Interpretive Data was last revised on 2017. Testing performed by: [address] [address] Imm gran pct 2.2 % [facility] Comment: Interpretive Data Percent cell count reference ranges are not reported, since discordance with absolute values may lead to misinterpretation of CBC data. Current Interpretive Data was last revised on 2017. Testing performed by: [address] [address] Lymphocyte pct 9.6 % [facility] Comment: Interpretive Data Percent cell count reference ranges are not reported, since discordance with absolute values may lead to misinterpretation of CBC data. Current Interpretive Data was last revised on 2017. Testing performed by: [address] [address] Monocyte pct 12.6 % [facility] Comment: Interpretive Data Percent cell count reference ranges are not reported, since discordance with absolute values may lead to misinterpretation of CBC data. Current Interpretive Data was last revised on 2017. Testing performed by: [address] [address] Eosinophil pct 3.0 % [facility] Comment: Interpretive Data Percent cell count reference ranges are not reported, since discordance with absolute values may lead to misinterpretation of CBC data. Current Interpretive Data was last revised on 2017. Testing performed by: [address] [address] Basophil pct 0.4 % [facility] Comment: Interpretive Data Percent cell count reference ranges are not reported, since discordance with absolute values may lead to misinterpretation of CBC data. Current Interpretive Data was last revised on 2017. Testing performed by: [address] [address] Blood 09/07/2024 1:31 PM WIRE BRUSHER 09/07/2024 1:49 PM WIRE BRUSHER Casi aJmeson ORTHOTIC/PROSTHETIC CLINICIAN LAB BLOOD ORDERABLES Final Resul t [facility]ANNAH LEA [address] [facility] Department of Laboratories [place], [place] [id number] * Thyroid Function Shirley (09/07/2024 1:31 PM WIRE BRUSHER) TSH 2.01 0.30 - 4.20 mcIUnit/mL Comment:Testing performed by : [address] [address] Blood 09/07/2024 1:31 PM WIRE BRUSHER 09/07/2024 11:36 PM WIRE BRUSHER Brielle Olvera MD LAB BLOOD ORDER PRUDENCE Edited Result - Final [facility]ANNA[facility] [address] [facility] Department [place] [address] * (ABNORMAL) CBC with auto differential (09/07/2024 1:31 PM WIRE BRUSHER) WBC 15.1(H) 3.8 - 9.9 K/cumm Comment:Testing performed by : [address] [address] Hgb 9.4(L) 11.9 - 15.5 g/dL [facility] Comment:Testing performed by : [address] [address] Hct 29.1(L) 35.6 - 45.5 % [facility] Comment:Testing performed by : [address] [address] Plt 353 150 - 400 K/cumm [facility] Comment:Testing performed by : [address] [address] MPV 9.5 9.1 - 12.3 fL [facility] Comment:Testing performed by : [address] [address] RBC 3.32(L) 3.90 - 5.20 M/cumm [facility] Comment:Testing performed by : [address] [address] MCV 87.7 81.3 - 96.4 fL [facility] Comment:Testing performed by : [address] [address] MCH 28.3 27.1 - 33.3 pg HANNAH LEA Comment:Testing performed by : [address] [address] MCHC 32.3 32.3 - 35.7 g/dL [facility]ANNA[facility] LEA Comment:Testing performed by : [address] [address] RDW CV 14.2 11.1 - 14.9 % [facility]NA[facility] LEA Comment:Testing performed by : [address] [address] RDW SD 45.2 35.7 - 48.1 fL [facility] Comment:Testing performed by : [address] [address] NRBC abs 0.00 0.00 - 0.01 K/cumm [facility]NA[facility] LEA Comment:Testing performed by : [address] [address] Blood 09/07/2024 1:31 PM WIRE BRUSHER 09/07/2024 1:49 PM WIRE BRUSHER Casi Jameson NP LAB BLOOD ORDERABLES Final Resul t Performing Organization Address City/[facility] [address]/[facility] Co de Phone Number [address] [place] [address] * Magnesium (09/07/2024 1:31 PM WIRE BRUSHER) Pathologist [facility] Magnesium 1.7 1.4 - 2.5 mg/dL Comment:Testing performed by : [address] [address] Blood 09/07/2024 1:31 PM WIRE BRUSHER 09/07/2024 11:36 PM WIRE BRUSHER Brielle Olvera MD LAB BLOOD ORDER PRUDENCE Final Result Performing Organization Address City/[facility] [address]/[facility] Co de Phone Number [address] [address] * (ABNORMAL) Hemoglobin A1c (09/07/2024 1:31 PM WIRE BRUSHER) Hgb A1C 6.2(H) 4.0 - 5.6 % Comment:Testing performed by : [address] [address] Estimated Average Glucose 131 mg/dL [facility]NAH Comment: The ADA recommends reporting an estimated Average Glucose (eAG) with all Hemoglobin A1c results using the equation derived from a study of 507 normal and diabetic adults. Minority populations were underrepresented and children were not included. (Diabetes Care 31:5701-8245, 2008). The eAG is not equivalent to a fasting glucose. Testing performed by: [address] [address] Blood 09/07/2024 1:31 PM WIRE BRUSHER 09/07/2024 11:36 PM WIRE BRUSHER Brielle Olvera MD LAB BLOOD ORDER PRUDENCE Final Result [facility]NA[facility] [address] [facility] Department [place] [address] * Lipid panel (09/07/2024 1:31 PM WIRE BRUSHER) Cholesterol 106 30 - 199 mg/dL Comment: [...] last revised on 2018. Testing performed by: [address] [address] Triglycerides 125 <=149 mg/dL [facility] Comment: Interpretive [...] last revised on 2018. Testing performed by: [facility], [address] [place] [address]., [address] HDL 42 >=40 mg/dL [facility] Comment: Interpretive [...] last revised on 2018. Testing performed by: [address] [address] LDL, calculated 42 <=129 mg/dL [facility]NA[facility] Comment: Interpretive Data Ages < or = 19 years Acceptable: <110 mg/dL Borderline high: 110-129 mg/dL High: >or= 130 mg/dL Ages > or = 20 years Optimal: <100 mg/dL Near optimal: 100-129 mg/dL Borderline high: 130-159 mg/dL High: >160 mg/dL Calculated using the Korey LDL-C estimating equation. This equation was implemented on 2024. Prior to this date LDL-C was estimated using the Friedewald equation. Literature References: 1. Expert Panel on Integrated Guidelines for Cardiovascular Health and Risk Reduction in Children and Adolescents. Pediatrics 2011;128:S213 2. NCEP Expert Panel. Circulation 2004;110:227 3. Korey Godoy et al. FLYNN Cardiol. 2020 January 06;5(5):540-548. doi: 10.1001/jamacardio.2020.0013 Current Interpretive Data was last revised on 2024. Testing performed by: [address] [address] Non-HDL Cholesterol 64 mg/dL [facility]NA[facility] Comment: Interpretive Data Ages < [...] last revised on 2018. Testing performed by: [address] [address] Chol/HDL ratio 3 [facility] Comment:Testing performed by : [address] [address] Blood 09/07/2024 1:31 PM WIRE BRUSHER 09/07/2024 11:36 PM WIRE BRUSHER Brielle Olvera MD LAB BLOOD ORDER PRUDENCE Final Result [facility] [address] [facility] Department [place] [address] * (ABNORMAL) Comprehensive metabolic panel (09/07/2024 1:31 PM WIRE BRUSHER) Sodium 138 135 - 145 mmol/L Comment:Testing performed by : [address] [address] Potassium, pl 4.1 3.3 - 4.9 mmol/L [facility] Comment:Testing performed by : [address] [address] Chloride 97 97 - 110 mmol/L [facility] Comment:Testing performed by : [address] [address] CO2 25 22 - 32 mmol/L [facility] Comment:Testing performed by : [address] [address] Anion gap 16(H) 2 - 15 mmol/L [facility] Comment:Testing performed by : [address] [address] BUN 45(H) 6 - 25 mg/dL [facility] Comment:Testing performed by : [address] [address] Creatinine 2.30(H) 0.60 - 1.10 mg/dL [facility] Comment:Testing performed by : [address] [address] Glucose 100 70 - 199 mg/dL [facility] Comment: Interpretive [...] was last revised 2022. Testing performed by: [address] [address] Calcium 9.4 8.5 - 10.3 mg/dL [facility] Comment:Testing performed by : [address] [address] Bilirubin, total 0.2 0.1 - 1.2 mg/dL [facility] Comment:Testing performed by : [address] [address] Protein, pl 6.9 6.5 - 8.5 g/dL [facility] Comment:Testing performed by : [address] [address] Albumin 3.8 3.5 - 5.0 g/dL [facility] Comment:Testing performed by : [address] [address] Alk phos 112 40 - 130 Units/L [facility] Comment:Testing performed by : [address] [address] ALT 11 7 - 45 Units/L [facility] Comment:Testing performed by : [address] [address] AST 13 10 - 45 Units/L [facility] Comment:Testing performed by : [address] [address] Blood 09/07/2024 1:31 PM WIRE BRUSHER 09/07/2024 1:49 PM WIRE BRUSHER us Casi Jameson NP LAB BLOOD ORDERABLES Final Resul t HANNAH MH [address] [facility] Department [place] [address] from Last 3 Months Insurance MEDICARE [facility] MEDICARE [facility] MEDICARE [facility] Advance Directives For more information, please contact: [phone] Documents on File Type Date Recorded Patient Radioisotope Technician Expl anation ADVANCE DIRECTIVE 07/26/2024 8:59 AM [...] 5:54 PM 05/13/2023 8:27 PM Care Teams Business Analytics Director Relationship Specialty Start Date End Date Irving Montes MD PCP - General Family Medicine 04/27/18
--- OUTSIDE RECORDS SUMMARY | 2024-12-02 10:50 | XMS_ITS | Clinical Summary ---
Author Organization [facility] Address [address] [place] [address] Care Team Providers Care Er Manager Name Role Phone Unavailable Primary Care Provider Unavailabl e Social History Tobacco Use Types Packs/Day Years Used Date Smoking Tobacco: Never Assessed Comments Unknown Sex and Gender Information Value Date Recorded Sex Assigned at Not on file Legal Sex Female 5:50 PM CDT Gender Identity Not on file Sexual Orientation Not on file Plan of Treatment Health Maintenance Due Date Last Done Comments DTaP, Tdap and Td Vaccines ( 1 - Tdap) 1954 Zoster Vaccines (1 of 2) 1985 Pneumococcal Vaccine: 65+ Ye ars (1 of 1 - PCV) 2000 RSV Immunization or 60+ Years (1 - 1-dose 75+ series) 2010 COVID-19 Vaccine (2023-2 5 season) 2024 Influenza Adult (#1) 2024 Meningococcal B Vaccine Aged Out No l onger eligible based on patient's age to complete this topic Meningococcal Vaccine Aged Out No kwesi abdirizak eligible based on patient's age to complete this topic RSV Immunizations Under 20 Months Aged Out No longer eligible based on patient's age to complete this topic
--- OUTSIDE RECORDS SUMMARY | 2024-12-02 10:50 | XMS_ITS | Encounter Summary ---
Author Organization [facility] Address [address] [place] [address] Care Team Providers Care Data Communications Analyst Name Role Phone Teddy Vance MD Primary Care Provider [phone] Encounter Details Date Type Department Care Team (Latest Contact Info) Description 11/22/2003 Outpatient Historical HIS [facility] ALISE Saha Jr., Stevenson Miller MD NO ADDRESS ON FILE SCREENING MAMM-MAILG NEOPL-OTHER (Primary Dx) Social History Tobacco Use Types Packs/Day Years Used Date Smoking Tobacco: Never Assessed Comments Unknown Sex and Gender Information Value Date Recorded Sex Assigned at Not on file Legal Sex Female 4:27 AM RIG MANAGER Gender Identity Not on file Sexual Orientation Not on file documented as of this encounter Plan of Treatment Not on file documented as of this encounter Visit Diagnoses Diagnosis Other screening mammogram- Primary documented in this encounter Care Teams Data Communications Analyst Relationship Specialty Start Date End Date Teddy Vance MD [address] [place] [address] PCP - General 09/04/09 documented as of this encounter
--- OUTSIDE RECORDS SUMMARY | 2024-12-02 10:50 | XMS_ITS | Clinical Summary ---
Author Organization [facility] Address [address] [place] [address] Phone Care Team Providers Care Adhesive Bandage Machine Operator Name Role Phone Teddy Vance MD Primary Care Provider [phone] Family History Medical History Relation Name Comments Breast Cancer Neg Hx Cancer Neg Hx Ovarian Cancer Neg Hx Social History Tobacco Use Types Packs/Day Years Used Date Smoking Tobacco: Never Assessed Comments Unknown Sex and Gender Information Value Date Recorded Sex Assigned at Not on file Legal Sex Female 4:27 AM DATA MIGRATION LEAD Gender Identity Not on file Sexual Orientation Not on file Occupation Industry Job Start Date Job End Date Not on file Not on file Not on file Not on file Plan of Treatment Health Maintenance Due Date Last Done Comments DTAP/TDAP/TD VACCINES (1 - Tdap) 1954 PNEUMOCOCCAL VACCINE 50+ YEARS (1 of 1 - PCV) 09/12/18 86 ZOSTER VACCINE (1 of 2) 1985 OSTEOPOROSIS SCREENING 2000 RSV VACCINE (60+ or ) (1 - 1-dose 75+ series) 2010 INFLUENZA VACCINE (#1) 2024 Insurance MEDICARE [facility] Care Teams Adhesive Bandage Machine Operator Relationship Specialty Start Date End Date Teddy Vance MD [address] [facility] [address] [place] [address] PCP - General 09/04/09
--- OUTSIDE RECORDS SUMMARY | 2024-12-02 10:50 | XMS_ITS | Encounter Summary ---
Author Organization [facility] Address [address] [place] [address] Care Team Providers Care Client Advisor Name Role Phone Teddy Vance MD Primary Care Provider [phone] Encounter Details Date Type Department Care Team (Latest Contact Info) Description 07/05/2008 Outpatient Historical HIS [facility] ALISE Aquino Jr., Stevenson Miller MD NO ADDRESS ON FILE Other Screening Mammogram Social History Tobacco Use Types Packs/Day Years Used Date Smoking Tobacco: Never Assessed Comments Unknown Sex and Gender Information Value Date Recorded Sex Assigned at Not on file Legal Sex Female 4:27 AM SLOT SHIFT MANAGER Gender Identity Not on file Sexual Orientation Not on file documented as of this encounter Plan of Treatment Not on file documented as of this encounter Procedures Procedure Name Priority Date/Time Associated Diagnosis Comments MAMMO SCREEN BILAT W OR WO CAD Routine 07/05/2008 12:04 PM CDT documented in this encounter Results * MAMMO DIGITAL SCREEN BILAT (07/05/2008 12:04 PM CDT) Anatomical Region Laterality Modality Breast Bilateral Other 07/05/2008 12:0 4 PM CDT Narrative 07/05/2008 8:31 PM CDT [facility] [address] [place], [place] [address] Admit Date: 07/05/2008 ERVIN SEVILLA Sex: F Admit Prov: STEVENSON AQUINO Date: 1935 Primary Care Prov: CMRN: [id number] Room: VIPIN SSN: [id number] IMAGING SERVICES Ordering Prov: STEVENSON AQUINO Accession Number: [id number] Interpretation BILATERAL FULL FIELD DIGITAL SCREENING MAMMOGRAM WITH CAD. Date: 07/05/2008 History: Routine Screening. Technique: Full field digital craniocaudal and mediolateral oblique projections of both breasts were obtained. Computer aided diagnosis was performed. Comparison: 05/2007, 11/2003 Breast Parenchymal Composition: Scattered fibroglandular densities. Findings: No suspicious mass, suspicious microcalcifications, or architectural distortion in either breast is identified. Since the prior study, there has been no significant interval change. The computer aided diagnosis detects no significant abnormality. Overall Assessment: BI-RADS category 1: Negative. Recommendation: Annual mammography is recommended. Assessment BIRADS: 1-Negative Recommendation: Normal interval follow-up Dictated by: DOLLY CORTES Electronically signed by: DOLLY CORTES 07/05/2008 20:30 Transcribed: 07/05/2008 19:50 AMK Procedure Note Dolly Cortes - 07/05/2008 [facility] [address] [place], [place] [address] Admit Date: 07/05/2008 ERVIN SEVILLA Sex: F Admit Prov: STEVENSON AQUINO Date: 1935 Primary Care Prov: CMRN: [id number] [facility] [address] [place] [address] IMAGING SERVICES Ordering Prov: STEVENSON AQUINO Interpretation BILATERAL FULL FIELD DIGITAL SCREENING MAMMOGRAM WITH CAD. Date: 07/05/2008 History: Routine Screening. Technique: Full field digital craniocaudal and mediolateral oblique projections of both breasts were obtained. Computer aided diagnosiswas performed. Comparison: 05/2007, 11/2003 Breast Parenchymal Composition: Scattered fibroglandular densities. Findings: No suspicious mass, suspicious microcalcifications, or architectural distortion in either breast is identified. Since theprior study, there has been no significant interval change. The computeraided diagnosis detects no significant abnormality. Overall Assessment: BI-RADS category 1: Negative. Recommendation: Annual mammography is recommended. Assessment BIRADS: 1-Negative Recommendation: Normal interval follow-up Dictated by: DOLLY CORTES Electronically signed by: DOLLY CORTES 07/05/2008 20:30 Transcribed: 07/05/2008 19:50 AMK us Stevenson Aquino Jr., MD MAMMO ORDERABLES Final Res ult documented in this encounter Visit Diagnoses Diagnosis Other screening mammogram documented in this encounter Care Teams Client Advisor Relationship Specialty Start Date End Date Teddy Vance MD [address] [facility] [[email or web address] [address] [place] [address] PCP - General 09/04/09 documented as of this encounter
--- OUTSIDE RECORDS SUMMARY | 2024-12-02 10:50 | XMS_ITS | Continuity of Care Document ---
Author Organization [facility] Address [address] [place] [address] [place] [address] Phone Care Team Providers Care Wool Fleece Grader Name Role Phone [facility] Unavailable Unavail able Tyron, Margarita Unavailable Unavailable Procedures Procedure Date Frames Deluxe Miscellaneous Vision Service - Supplies [employer] - Medical BF Polycarb Sphcyl Ridgely To +/-4d .12-2d Tint Photochromatic, Polycarb 8 [employer] [facility] Eye Exam & Treatment Advance Directives Directive Yes / No Effective Date File Name No Information Encounters Encounter Description Practice Location Reason(s) For Visit Diagnoses Date Provider Providers Copied on Encounter [facility], [address] [place] [address] [address], [place], [place], [id number], tel:[phone] [facility] No Information 9 [facility] . [address] [place] [address], [id number], [place]. tel:[phone] Consulting Provider: Margarita Ackerman, [address] [place], [address]. tel:[phone] [facility], [address] [place] [address] 150, [place], [place], [id number], tel:[phone] [facility] No Information 8 [facility] . [address] [place] [address], [id number], [place]. tel:[phone] Consulting Provider: Patti Jensen, [address] [facility], [place], [address]. tel:[phone] [facility], [address], [place], [place], [id number], [place] tel:[phone] [facility] No Information [address] Kim. [address] [facility], [address], [place], [place], [id number], [place]. tel:[phone] Family History Family Member Type Diagnosis Age [...]
[2024-12-02 11:37] LABS: Add Urine Microscopic? YES; Appearance Urine Clear (Clear); Bacteria Urine None Seen /hpf; Bilirubin Urine Negative (Negative); Blood Urine Negative (Negative); Color Urine Yellow (Yellow); Glucose Urine UA Negative (Negative); Ketones Urine Negative (Negative); Leukocyte Esterase Ur Trace LEU/UL (Negative); Nitrate Urine Negative (Negative); Non Pathogenic Casts 0-2; Protein Urine Negative (Negative); RBC Urine 0-2 /hpf (0-2); Squamous Epithelial Cell Urine None Seen /hpf (Few); Urobilinogen Urine 0.2 mg/dL (<2.0); WBC Urine 0-5 /hpf (0-3); pH Urine 5.5 (5.0-9.0)
== END 2024-12-02 09:52 | disposition home or self-care (01) ==
PROVIDERS: PCP Family Medicine; Visit Provider Family Medicine
DX: R30.0 Dysuria (principal); I12.9 Hypertensive chronic kidney disease with stage 1 through stage 4 chronic kidney disease, or unspecified chronic kidney disease
CPT/HCPCS: 36415; 80048; 81001; 84443; 85027; 87086; 99212; G0463

== ENCOUNTER 2024-12-28 11:08 | Outpatient (CLI) | payer MEDICARE, BC, SELFPAY ==
[2024-12-28 11:54] LABS: Basophils Percent Auto 0.4 % (0.2-1.2); Eosinophils Absolute Auto 0.4 K/mm3 (0-0.3); Eosinophils Percent Auto 4.1 % (0-4.4); Hematocrit 30.1 % (37.0-47.0); Hemoglobin 9.5 g/dL (12.0-15.0); Immature Granulocyte Absolute 0.11 K/mm3 (0.00-0.031); Immature Granulocyte Percent A 1.1 % (0-0.5); Lymphocytes Absolute Auto 1.26 K/mm3 (0.9-3.2); Lymphocytes Percent Auto 12.8 % (18.3-44.2); Mean Corpuscular HGB Conc 31.6 g/dl (32-36); Mean Corpuscular Hemoglobin 27.9 pg (26-34); Mean Corpuscular Volume 88.5 fl (80-100); Mean Platelet Volume 9.1 fl (7.4-10.4); Monocytes Absolute Auto 0.8 K/mm3 (0.1-0.6); Monocytes Percent Auto 8.1 % (2.6-8.5); Neutrophils Absolute Auto 7.3 K/mm3 (1.3-6.7); Neutrophils Percent Auto 73.5 % (45.5-73.1); Platelet Count Result 417 k/mm3 (150-375); Red Cell Distribution Width 14.7 % (11.5-14.5); White Blood Count 9.9 K/mm3 (4.5-10.0)
[2024-12-28 12:06] LABS: Albumin Level 3.9 g/dL (3.5-5.1); Anion Gap 8 mmol/L (4-12); Blood Urea Nitrogen 31 mg/dL (7-17); Calcium 9.1 mg/dL (8.4-10.2); Carbon Dioxide 32 mmol/L (22-30); Chloride 100 mmol/L (98-107); Estimated Glomerular Filt Rate 32; Glucose 77 mg/dL (65-110); Phosphorus 3.8 mg/dL (2.5-4.5); Potassium 4.4 mmol/L (3.4-5.0); Sodium 140 mmol/L (137-145)
[2024-12-28 12:08] LABS: Anion Gap 7 mmol/L (4-12); Blood Urea Nitrogen 31 mg/dL (7-17); Calcium 9.2 mg/dL (8.4-10.2); Carbon Dioxide 32 mmol/L (22-30); Chloride 101 mmol/L (98-107); Estimated Glomerular Filt Rate 32; Glucose 76 mg/dL (65-110); Potassium 4.7 mmol/L (3.4-5.0); Sodium 140 mmol/L (137-145)
--- OUTSIDE RECORDS SUMMARY | 2024-12-28 12:59 | XMS_ITS | Encounter Summary ---
Author Organization [facility] Address [address] [place] [address] Care Team Providers Care Database Administration Project Manager Name Role Phone Unavailable Primary Care Provider Unavailabl e Encounter Details Date Type Department Care Team (Late st Contact Info) Description 08/22/2023 Lab Requisition [facility] - [facility]erm[facility] Lab [address] [facility] [place] [id number] Jamil Salas MD [address] [place] [address] Social History Tobacco Use Types Packs/Day Years Used Date Smoking Tobacco: Never Assessed Comments Unknown Sex and Gender Information Value Date Recorded Sex Assigned at Not on file Legal Sex Female 7:04 AM COMPUTATIONAL GENETICIST Gender Identity Not on file Sexual Orientation Not on file documented as of this encounter Plan of Treatment Not on file documented as of this encounter Procedures Procedure Name Priority Date/Time Associated Diagnosis Comments DERMATOPATHOLOGY Routine 08/21/2023 3:33 AM COMPUTATIONAL GENETICIST documented in this encounter Results * DERMATOPATHOLOGY (08/21/2023 3:33 AM COMPUTATIONAL GENETICIST) Case Report Dermatopathology Report Case: [id number] Authorizing Provider: Jamil Salas MD Collected: 08/21/2023 03:33 AM Ordering Location: [facility] Derm[facility] Lab Received: 08/25/2023 07:09 AM Pathologist: Charlene Yang MD Specimen: Skin, nasal ltip 3 12:08 PM COMPUTATIONAL GENETICIST DERMATOPATHOLOGY LABORATORY Final Diagnosis Specimen A. SKIN, nasal tip: DERMAL SCAR RESIDUAL BASAL CELL CARCINOMA NOT IDENTIFIED (L90.5) 3 12:08 PM COMPUTATIONAL GENETICIST DERMATOPATHOLOGY LABORATORY Clinical History BCC Nodule. Prior Biopsy [id number] 3 12:08 PM [facility] DERMATOPATHOLOGY LABORATORY Gross Description Specimen A: Received is one formalin filled container labeled with the patient's name and designated nasal tip. The specimen consists of a curettage and desiccation biopsy measuring 9x9x2 mm. Jar 0. 3 12:08 PM [facility] DERMATOPATHOLOGY LABORATORY Microscopic Description Specimen A. SKIN, nasal tip: There are fibroblasts and collagen bundles oriented parallel to the skin surface. There are elongated blood vessels, some of which are oriented perpendicular to the skin surface. Abundant hemosiderin is also observed at the base of the fibrosis. No basal cell carcinoma is identified. 3 12:08 PM [facility] DERMATOPATHOLOGY LABORATORY Disclaimer An external and internal positive and negative controls are appropriate for the histochemical, immunohistochemical and immunofluorescence stain(s) in this case (if any), except where stated explicitly. The performance characteristics of the stain(s) cited in this report were developed and its performance characteristic determined by the Dermatopathology Laboratory at [facility], directed by Dr. Anil Willett. These tests need not be, and therefore are not, approved by the [place] Food and Drug Administration. The tests are used for clinical purposes. Billing Codes Specimen Charges Stain Charges 39400 1 3 12:08 PM [facility] DERMATOPATHOLOGY LABORATORY Embedded Images 3 12:08 PM [facility] DERMATOPATHOLOGY LABORATORY Pathology/Cytolo gy TISSUE SPECIMEN FROM SKIN / Unknown 08/21/2023 3:33 AM COMPUTATIONAL GENETICIST 08/25/2023 7:09 AM [facility] Jamil Salas MD LAB - PATHOLOGY/CYTOLOGY ORDERAB LES Final Result DERMATOPATHOLOGY LABORATORY [facility] - Department of Dermatology [address] [phone] documented in this encounter Visit Diagnoses Not on filedocumented in this encounter
--- OUTSIDE RECORDS SUMMARY | 2024-12-28 12:59 | XMS_ITS | Encounter Summary ---
Author Organization [facility] Healthcare Address [address] [place] [address] Care Team Providers Care Candy Starch Mold Printer Name Role Phone Irving Montes MD Primary Care Provider [phone] Encounter Details Date Type Department Care Team (Late st Contact Info) Description 11/03/2024 Results Follow-Up [facility] Medical [facility] Cardiology at [address] [place] [address] Luis Gasca MD [facility] [place] [id number] Social History Tobacco Use Types Packs/Day Years [...] materials from doctor or pharmacy Never 10/22/2024 [facility] Utilities Answer Date Recorded In the [...] often do you attend chur ch or orthodox services? Never 09/10/2024 Do you belong to [...] place to sleep or slept in a senior care (including now)? No 05/09/2023 PHQ-9 Answer Date [...] were you homeless or living in a senior care (including now)? No 09/10/2024 Personal Safety Answer Date Recorded Have you ever been in or are you currently in a harmful physical or emotional relationship or is someone making you feel afraid or unsafe? Denies 09/08/2024 Comments No Sex and Gender Information Value Date Recorded Sex Assigned at Not on file Legal Sex Female 11:52 PM [employer] Gender Identity Not on file Sexual Orientation Not on file documented as of this encounter Plan of Treatment Not on file documented as of this encounter Visit Diagnoses Not on filedocumented in this encounter Care Teams Candy Starch Mold Printer Relationship Specialty Start Date End Date Irving Montes MD PCP - General Family Medicine 04/27/18 documented as of this encounter
--- OUTSIDE RECORDS SUMMARY | 2024-12-28 12:59 | XMS_ITS | Clinical Summary ---
Author Organization [facility] Address [address] [place] [id number] Care Team Providers Care Chalker Soles Name Role Phone Unavailable Primary Care Provider [...] Td Vaccines ( 1 - Tdap) 1954 Pneumococcal Vaccine: 50+ Ye ars (1 of 1 - PCV) 1985 Zoster Vaccines (1 of 2) 1985 RSV Immunization or 60+ Years (1 - 1-dose 75+ series) 2010 COVID-19 Vaccine ( - 2023-2 5 season) 2024 Meningococcal B Vaccine Aged Out No l onger eligible based on patient's age to complete this topic Meningococcal Vaccine Aged Out No kwesi abdirizak eligible based on patient's age to complete this topic RSV Immunizations Under 20 Months Aged Out No longer eligible based on patient's age to complete this topic
--- OUTSIDE RECORDS SUMMARY | 2024-12-28 12:59 | XMS_ITS | Clinical Summary ---
Author Organization [facility] [address] Address [address] [place] [address] Care Team Providers Care District Court Reporter Name Role Phone Irving Montes MD Primary Care Provider [phone] Allergies Active Allergy Reactions Criticality Noted Date Comments Clindamycin Stomach upset Medium 12/03/2024 Heartburn like symptoms burning in esophagus Codeine Doxycycline Hives Medium 08/17/2024 Niacin Penicillamine Unknown 02/18/2019 Penicillins Rash High 04/27/2018 Medications montelukast (SINGULAIR) 10 mg tabletIndicati ons:Seasonal Allergic Rhinitis take 1 tablet (10MG) by oral route every day in the evening 0 01/23/[address] (NexIUM) 40 mg capsuleIndicat ions:stomach take 1 capsule by oral route every day 0 0 12/21/19 15 Active clopidogrel (PLAVIX) 75 mg tabletIndicati ons:myocardial infarction prevention,str marcel prevention Take 1 tablet (75 mg total) by mouth every evening 04/14/20 18 Active levothyroxine (SYNTHROID) 75 mcg tabletIndicati ons:hypothyroi dism Take 1 tablet (75 mcg total) by mouth operations support manager before breakfast 11/21/19 21 Active ondansetron (ZOFRAN) 4 mg tabletIndicati ons:nausea/vom iting Take 1 tablet (4 mg total) by mouth every 8 (eight) hours as needed for nausea or vomiting Active bumetanide (BUMEX) 2 mg tablet Take 1 tablet (2 mg total) by mouth daily Active irbesartan (AVAPRO) 150 mg tablet Take 1 tablet (150 mg total) by mouth every evening Active amLODIPine (NORVASC) 5 mg tabletIndicati ons:hypertensi on Take 1 tablet (5 mg total) by mouth daily 03/18/20 23 Active multivit,calc, mins/iron/foli c (THERA M PLUS, FERROUS FUMARAT, ORAL)Indicatio ns:supplement, deficiency Take 1 tablet by mouth daily Active calcitRIOL (ROCALTROL) 0.25 mcg capsule Take 1 capsule (0.25 mcg total) by mouth 3 (three) times a week Take 3 times weekly on Friday, Friday, and Friday Active albuterol 2.5 mg /3 mL (0.083 %) nebulizer solutionIndica tions:SOB Take 3 mL by nebulization every 4 (four) hours as needed for wheezing or shortness of breath Active mometasone (ASMANEX) 100 mcg/actuation inhaler Inhale 1 puff nightly Rinse mouth with water after use. Do not swallow. Active escitalopram (LEXAPRO) 10 mg tabletIndicati ons:major depressive disorder Take 1 tablet (10 mg total) by mouth daily Active miconazole 2 % powderIndicati ons:cutaneous candidiasis Apply topically 2 (two) times a day 70 g 07/25/20 24 Active senna-docusate (PERICOLACE) 8.6-50 mgIndications: constipation Take 1 tablet by mouth 2 (two) times a day 30 tablet 07/25/20 24 Active acetaminophen (TYLENOL) 500 mg tabletIndicati ons:Fever,Pain Take 1 tablet (500 mg total) by mouth every 6 (six) hours as needed for pain Active white petrolatum-min eral oiL (EUCERIN) creamIndicatio ns:skin irritation Apply topically daily 454 g 08/25/20 24 Active atorvastatin (LIPITOR) 20 mg tablet Take 1 tablet (20 mg total) by mouth daily Active hydrALAZINE (APRESOLINE) 10 mg tabletIndicati ons:hypertensi on Take 1 tablet (10 mg total) by mouth 4 (four) times a day as needed (for elevated blood pressures) Active ALPRAZolam (XANAX) 0.5 mg tabletIndicati ons:Generalize d Anxiety Disorder Take 1 tablet (0.5 mg total) by mouth 4 (four) times a day for 5 days Max of 2 mg daily 20 tablet 12/11/19 25 Active traMADoL (ULTRAM) 50 mg tablet Take 1 tablet (50 mg total) by mouth every 8 (eight) hours as needed for pain for up to 5 days 15 tablet 12/11/19 25 Active loperamide (IMODIUM) 2 mg capsule Take 1 capsule (2 mg total) by mouth 4 (four) times a day as needed for diarrhea 12/11/19 25 Active polyethylene glycol (MIRALAX) 17 gram packetIndicati ons:constipati on Take 1 packet (17 g total) by mouth daily as needed for constipation 12/11/19 25 Active hydrALAZINE (APRESOLINE) 50 mg tabletIndicati ons:chronic heart failure,hypert ension Take 1 tablet (50 mg total) by mouth 2 (two) times a day For BP > 145/90 09/19/19 23 2024 Discontinued(A lternate therapy) ALPRAZolam (XANAX) 0.5 mg tabletIndicati ons:Generalize d Anxiety Disorder Take 1 tablet (0.5 mg total) by mouth 4 (four) times a day Max of 2 mg daily 2024 Discontinued atorvastatin (LIPITOR) 10 mg tabletIndicati ons:hyperlipid emia Take 1 tablet (10 mg total) by mouth every evening 2024 Discontinued(A lternate therapy) Saccharomyces boulardii (FLORASTOR) 250 mg capsule Take 1 capsule (250 mg total) by mouth 2 (two) times a day 2024 Discontinued spironolactone (ALDACTONE) 25 mg tabletIndicati ons:hypertensi on Take 1 tablet (25 mg total) by mouth daily 07/20/20 24 2024 Discontinued(S top Taking at Discharge) HYDROmorphone (DILAUDID) 2 mg tabletIndicati ons:Severe Pain Take 1 tablet (2 mg total) by mouth every 8 (eight) hours as needed for pain 08/10/20 24 2024 Discontinued ALPRAZolam (XANAX) 1 mg tabletIndicati ons:anxiety Take 1 mg by mouth 3 (three) times a day. [id number] Indications: anxious 2024 Discontinued(A lternate therapy) ALPRAZolam (XANAX) 1 mg tabletIndicati ons:Anxiety with Depression Take 1 mg by mouth 3 (three) times a day. RX: [id number] Indications: anxiousness associated with depression 09/28/19 25 2024 Discontinued traMADoL (ULTRAM) 50 mg tablet Take 1 tablet (50 mg total) by mouth every 8 (eight) hours as needed for pain 2024 Discontinued Active Problems Problem Noted Date Diagnosed Date Acute kidney injury superimposed on chronic kidn ey disease 12/09/2024 Left leg cellulitis 12/03/2024 Occlusion and stenosis of bilateral carotid ivette [...] 07/13/2020 Assessment & Plan (11/09/2020 6:57 PM WOOD WEB WEAVING MACHINE OPERATOR): Impression: Chronic kidney disease which is followed by outside institution awning installer. Patient wishes to have 2nd opinion and to combine care at our hospital. Plan: Referral to [facility] [place] for further evaluation of her chronic kidney disease. Chronic eczematous otitis externa of both ears 0 03/30/2020 Other otitis externa, unspecified ear 03/30/2020 Hypertension 02/19/2019 Overview (02/19/2019): Hypertension Assessment & Plan (11/09/2020 6:55 PM WOOD WEB WEAVING MACHINE OPERATOR): Impression: Stable chronic hypertension. Plan: Medications reviewed and recommend continuing daily antihypertensive regimen as directed by patient's primary care physician. Assessment & Plan (02/19/2019 1:16 PM CDT): Stable hypertension control with use of medications. Plan: Continue management as per primary care provider. Bilateral lower extremity edema 02/19/2019 Assessment & Plan (11/09/2020 6:56 PM WOOD WEB WEAVING MACHINE OPERATOR): Impression: Chronic bilateral lower extremity edema that [...] stenosis of lumbar region 02/18/2019 Atherosclerosis of big sandy ar sandra of both lower extremities with intermittent claudication 08/24/2018 Pain in both lower extremities 08/18/2018 Stenosis of carotid artery 07/22/2016 Overview (12/13/2016): Carotid stenosis, asymptomatic, right Assessment & Plan (11/09/2020 6:59 PM WOOD WEB WEAVING MACHINE OPERATOR): Impression: Stable asymptomatic bilateral internal carotid artery [...] Encounters Date Type Department Care Team Description 12/03/2024 9:58 AM CDT - 12/10/2024 5:42 PM CDT Hospital Encounter [place] [address] [address] [place] [id number] Jaimie Romero MD Ali, Md Shahin, MD Paruchuri, Tharun, MD Singh, Supriya, MD Lopez, Sean Encinas MD Left leg cellulitis (Primary Dx); COLIN (acute kidney injury) [N17.9]; Chronic heart failure with preserved ejection fraction (HCC) [I50.32]; Depression, unspecified depression type [F32.A]; Hyperkalemia [E87.5]; Primary hypertension [I10]; Acute kidney injury superimposed on chronic kidney disease Discharge Disposition: Discharge to [facility] 11/19/2024 Orders Only [facility] [address] [facility] [address] [place] [phone] Los Escobar MD Occlusion of right carotid artery (Primary Dx); Stenosis of left carotid artery 11/18/2024 11:00 AM CDT Office Visit [facility] Vascular and Vein Surgery [address] [facility] [address] [place] [phone] Polina Santiago PA Occlusion and stenosis of bilateral carotid arteries (Primary Dx); Mixed hyperlipidemia; Primary hypertension 11/03/2024 Results Follow-Up [facility] Cardiology at [address] [place] [phone] Jeanie Gasca MD 11/02/2024 10:00 AM WOOD WEB WEAVING MACHINE OPERATOR Ancillary Procedure [facility] Surgery at [address] [place] [address] Bilateral carotid artery stenosis 10/28/2024 2:00 PM WOOD WEB WEAVING MACHINE OPERATOR Office Visit [facility] Cardiology [address] [facility] [address] [place] [phone] Jeanie Gasca MD Chronic heart failure with preserved ejection fraction (HCC) (Primary Dx); 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, 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, with heart failure (HCC); Atherosclerosis of big sandy artery of both lower extremities with intermittent claudication; Mixed hyperlipidemia; Bilateral carotid artery stenosis 10/26/2024 Home Care Visit [place] [address] [address] [place] [address] Amanda Clark RN SN TRIAGE ENCOUNTER 10/22/2024 8:30 AM WOOD WEB WEAVING MACHINE OPERATOR Home Care Visit [place] [address] [address] [place] [address] Christine Sherman, PT PT OASIS DISCHARGE 10/20/2024 9:00 AM WOOD WEB WEAVING MACHINE OPERATOR Home Care Visit [place] [address] [address] [place] [address] Chelo Davis, MORIAH SN DISCIPLINE DISCHARGE 10/14/2024 12:45 PM WOOD WEB WEAVING MACHINE OPERATOR Orders Only [facility] 2 Wound Care [address] [facility] [address] [place] [address] 10/13/2024 8:30 AM WOOD WEB WEAVING MACHINE OPERATOR Home Care Visit [address] [place] [address] Christine Sherman, PT PT HOME VISIT 10/11/2024 8:30 AM WOOD WEB WEAVING MACHINE OPERATOR Home Care Visit [address] [place] [address] Christine Sherman, PT PT REASSESSMENT 10/07/2024 Home Care Visit [address] [place] [address] Irene Acosta, OT TELEPHONE ENCOUNTER 10/07/2024 Home Care Visit [address] [place] [address] Irene Acosta, OT TELEPHONE ENCOUNTER 10/06/2024 8:00 AM WOOD WEB WEAVING MACHINE OPERATOR Home Care Visit [address] [place] [address] Hermila Norton LPN SN HOME VISIT 10/04/2024 8:30 AM WOOD WEB WEAVING MACHINE OPERATOR Home Care Visit [address] [place] [address] Christine Sherman, PT PT HOME VISIT 10/01/2024 9:00 AM WOOD WEB WEAVING MACHINE OPERATOR Home Care Visit [address] [place] [address] Christine Sherman, PT PT HOME VISIT 10/01/2024 8:00 AM WOOD WEB WEAVING MACHINE OPERATOR Home Care Visit [address] [place] [address] Chelo Davis RN SN HOME VISIT 09/30/2024 Home Care Visit [address] [place] [address] Irene Acosta, OT TELEPHONE ENCOUNTER from Last 3 Months Immunizations Immunization Administration [...] Anxiety COPD with emphysema (HCC) Stroke (HCC) Cellulitis Family History Medical History Relation Name Comments [...] materials from doctor or pharmacy Never 10/22/2024 [facility] Utilities Answer Date Recorded In the past 12 months has th e [employer], gas, oil, or water [employer] threatened to shut off services in your home? No 12/03/2024 Social Connection and Isolat ion Panel [NHANES] Answer Date Recorded In a typical week, how many times do you talk on the phone with family, friends, or neighbors? More than three times a week 12/03/2024 How often do you get togethe r with friends or relatives? More than three times a week 12/03/2024 How often do you attend chur ch or sabianist services? Never 12/03/2024 Do you belong to any clubs o r organizations such as uatsdin groups, unions, fraternal or athletic groups, or school groups? No 12/03/2024 How often do you attend meet ings of the clubs or organizations you belong to? Never 12/03/2024 Are you , , di vorced, , never , or living with a partner? 12/03/2024 AUDIT-C Answer Date Recorded Q1: How often do you have a drink containing alc ohol? Monthly or less 12/03/2024 Q2: How many drinks containi ng alcohol do you have on a typical day when you are drinking? 1 or 2 12/03/2024 Q3: How often do you have si x or more drinks on one occasion? Never 12/03/2024 Overall Financial Resource Strain (CARDIA) Answe r Date Recorded How hard is it for you to pa y for the very basics like food, housing, medical care, and heating? Not hard at all 12/03/2024 PHQ-2 Answer Date Recorded PHQ-2 Total Score 0 12/03/2024 Hunger Vital Sign Answer Date Recorded Within the past 12 months, y ou worried that your food would run out before you got the money to buy more. Never true 12/04/19 25 Within the past 12 months, t he food you bought just didn't last and you didn't have money to get more. Never true 12/03/2024 PRAPARE - Transportation Answer Date Re corded In the past 12 months, has l ack of transportation kept you from medical appointments or from getting medications? No 11/07 In the past 12 months, has l ack of transportation kept you from meetings, work, or from getting things needed for daily living? Yes 12/03/2024 Housing Stability Vital Sign Answer [place] e [...] place to sleep or slept in a jail (including now)? No 05/09/2023 PHQ-9 Answer Date Recorded PHQ-9 Total Score 2 12/03/2024 Housing Stability Vital Sign Answer [place] e Recorded In the last 12 months, was t here a time when you were not able to pay the mortgage or rent on time? No 12/03/2024 In the past 12 months, how m any times have you moved where you were living? 1 12/03/2024 At any time in the past 12 m [facility], were you homeless or living in a jail (including now)? No 12/03/2024 Personal Safety Answer Date Recorded Have you ever been in or are you currently in a harmful physical or emotional relationship or is someone making you feel afraid or unsafe? Denies 12/03/2024 Comments No Sex and Gender Information Value Date Recorded Sex Assigned at Not on file Legal Sex Female 11:52 PM WOOD WEB WEAVING MACHINE OPERATOR Gender Identity Not on file Sexual Orientation Not on file Obstetrics History Last Filed Vital Signs Vital Sign Reading Time Taken Comments Blood Pressure 147/55 12/10/2024 3:12 PM CDT Pulse 88 12/10/2024 3:12 PM CDT Temperature 36.8 C (98.2 F) 12/10/2024 3:12 PM CDT Respiratory Rate 16 12/10/2024 3:12 PM CDT Oxygen Saturation 94% 12/10/2024 3:12 PM CDT Inhaled Oxygen Concentration - - Weight 109.6 kg (241 lb 10 oz) 12/03/2024 2:10 P M CDT Height 167.6 cm (5' 5.98 ) 12/03/2024 2:10 PM CD T Body Mass Index 39.02 12/03/2024 2:10 PM CDT Plan of Treatment Health Maintenance Due Date Last Done Comments DTaP/Tdap/Td Vaccine (1 - Tdap) 1946 Hepatitis B Screening 1953 Pneumococcal vaccine 65+ (1 of 2 - PCV) 1954 Well Visit 65+ 2000 Zoster Vaccine (2 of 3) 09/22/2015 07/28/2015 Covid-19 Vaccine (2 - 2023-2 5 season) 2024 07/20/2021 Influenza Vaccine (Season Ended) 2025 07/13/2020, 06/08/2019, 05/25/2019, Additional history exists Depression Screening 12/03/2025 12/03/2024, 12/03/2024, 08/18/2024, Additional history exists Fall Risk Assessment 12/10/2025 12/10/2024 Procedures Procedure Name Priority Date/Time Associated Diagnosis Comments EGFR Routine 12/10/2024 3:13 AM CDT DIFFERENTIAL AUTO Routine 12/10/2024 3:1 3 AM CDT CBC WITH AUTO DIFFERENTIAL Routine 12/10/2024 3:13 AM CDT BASIC METABOLIC PANEL Routine 12/10/2024 3:13 AM CDT XR TIBIA FIBULA LEFT 2 VIEWS IP Routine 12/09/2024 12:13 PM CDT EGFR Routine 12/09/2024 4:02 AM CDT DIFFERENTIAL AUTO Routine 12/09/2024 4:0 2 AM CDT CBC WITH AUTO DIFFERENTIAL Routine 12/09/2024 4:02 AM CDT BASIC METABOLIC PANEL Routine 12/09/2024 4:02 AM CDT EGFR Routine 12/08/2024 4:44 AM CDT DIFFERENTIAL AUTO Routine 12/08/2024 4:4 4 AM CDT CBC WITH AUTO DIFFERENTIAL Routine 12/08/2024 4:44 AM CDT BASIC METABOLIC PANEL Routine 12/08/2024 4:44 AM CDT EGFR Routine 12/07/2024 4:30 AM CDT DIFFERENTIAL AUTO Routine 12/07/2024 4:3 0 AM CDT CBC WITH AUTO DIFFERENTIAL Routine 12/07/2024 4:30 AM CDT BASIC METABOLIC PANEL Routine 12/07/2024 4:30 AM CDT EGFR Routine 12/06/2024 5:07 AM CDT DIFFERENTIAL AUTO Routine 12/06/2024 5:0 7 AM CDT CBC WITH AUTO DIFFERENTIAL Routine 12/06/2024 5:07 AM CDT BASIC METABOLIC PANEL Routine 12/06/2024 5:07 AM CDT EGFR Routine 12/05/2024 4:58 AM CDT DIFFERENTIAL AUTO Routine 12/05/2024 4:5 8 AM CDT CBC WITH AUTO DIFFERENTIAL Routine 12/05/2024 4:58 AM CDT BASIC METABOLIC PANEL Routine 12/05/2024 4:58 AM CDT EGFR Routine 12/04/2024 5:05 AM CDT DIFFERENTIAL AUTO Routine 12/04/2024 5:0 5 AM CDT CBC WITH AUTO DIFFERENTIAL Routine 12/04/2024 5:05 AM CDT BASIC METABOLIC PANEL Routine 12/04/2024 5:05 AM CDT US VEIN DUPLEX LOWER EXTREMITY LEFT LIMITED IP Routine 12/03/2024 4:47 PM CDT URINALYSIS, MICROSCOPIC ONLY STAT 12/03/2024 12:57 PM CDT URINE CULTURE STAT 12/03/2024 12:57 PM CDT URINALYSIS AND REFLEX TO MICROSCOPIC AND CULTURE STAT 12/03/2024 12:57 PM CDT BLOOD CULTURE STAT 12/03/2024 11:27 AM CDT BLOOD CULTURE STAT 12/03/2024 11:27 AM CDT ERYTHROCYTE SEDIMENTATION RATE STAT 12/03/2024 10:16 AM CDT CRP (ACUTE PHASE) STAT 12/03/2024 10: 16 AM CDT EGFR STAT 12/03/2024 10:16 AM CDT DIFFERENTIAL AUTO STAT 12/03/2024 10: 16 AM CDT SEPSIS LACTATE WITH REFLEX STAT 12/03/2024 10:16 AM CDT COMPREHENSIVE METABOLIC PANEL STAT 12/03/2024 10:16 AM CDT CBC WITH AUTO DIFFERENTIAL STAT 12/03/2024 10:16 AM CDT US CAROTIDS DUPLEX BILATERAL Schedule Routine, Read Routine (OP Routine) 11/02/2024 11:22 AM WOOD WEB WEAVING MACHINE OPERATOR Bilateral carotid artery stenosis ECG 12-LEAD Routine 10/28/2024 2:38 PM WOOD WEB WEAVING MACHINE OPERATOR Chronic heart failure with preserved ejection fraction (HCC) Atherosclerosis of big sandy artery of both lower extremities with intermittent claudication from Last 3 Months Results * (ABNORMAL) eGFR (12/10/2024 3:13 AM CDT) eGFR 31(L) >=60 mL/min/1. 73 m2 Comment: [...] was last reviewed 2021. Testing performed by: [address] [address] Blood 12/10/2024 3:13 AM CDT 12/10/2024 3:18 AM CDT Nika Calle NP LAB BLOOD ORDERABLES Final Re sult [place] [address] [facility] Department of Laboratories [place], [place] [id number] * (ABNORMAL) Differential, auto (12/10/2024 3:13 AM CDT) Neutrophil abs 6.87(H) 1.50 - 6.50 K/cumm Comment:Testing performed by : [address] [address] Imm gran abs 0.12(H) 0.00 - 0.10 K/cumm [facility] Comment:Testing performed by : [address] [address] Lymphocyte abs 1.69 0.80 - 3.30 K/cumm [facility] Comment:Testing performed by : [address] [address] Monocyte abs 0.90(H) 0.20 - 0.80 K/cumm [facility] Comment:Testing performed by : [address] [address] Eosinophil abs 0.18 0.00 - 0.50 K/cumm [facility] Comment:Testing performed by : [address] [address] Basophil abs 0.05 0.00 - 0.10 K/cumm [facility] Comment:Testing performed by : [address] [address] Neutrophil pct 70.1 % [facility] Comment: Interpretive Data Percent cell count reference ranges are not reported, since discordance with absolute values may lead to misinterpretation of CBC data. Current Interpretive Data was last revised on 2017. Testing performed by: [address] [address] Imm gran pct 1.2 % [facility] Comment: Interpretive Data Percent cell count reference ranges are not reported, since discordance with absolute values may lead to misinterpretation of CBC data. Current Interpretive Data was last revised on 2017. Testing performed by: [address] [address] Lymphocyte pct 17.2 % [facility] Comment: Interpretive Data Percent cell count reference ranges are not reported, since discordance with absolute values may lead to misinterpretation of CBC data. Current Interpretive Data was last revised on 2017. Testing performed by: [address] [address] Monocyte pct 9.2 % [facility] Comment: Interpretive Data Percent cell count reference ranges are not reported, since discordance with absolute values may lead to misinterpretation of CBC data. Current Interpretive Data was last revised on 2017. Testing performed by: [address] [address] Eosinophil pct 1.8 % [facility] Comment: Interpretive Data Percent cell count reference ranges are not reported, since discordance with absolute values may lead to misinterpretation of CBC data. Current Interpretive Data was last revised on 2017. Testing performed by: [address] [address] Basophil pct 0.5 % [facility] Comment: Interpretive Data Percent cell count reference ranges are not reported, since discordance with absolute values may lead to misinterpretation of CBC data. Current Interpretive Data was last revised on 2017. Testing performed by: [address] [address] Blood 12/10/2024 3:13 AM CDT 12/10/2024 3:18 AM CDT us Nika Calle NP LAB BLOOD ORDERABLES Final Re sult [facility] [address] [facility] Department [place] [address] * (ABNORMAL) CBC with auto differential (12/10/2024 3:13 AM CDT) WBC 9.81 3.80 - 9.90 K/cumm Comment:Testing performed by : [address] [address] Hgb 9.9(L) 11.9 - 15.5 g/dL [facility] Comment:Testing performed by : [address] [address] Hct 29.6(L) 35.6 - 45.5 % [facility] Comment:Testing performed by : [address] [address] Plt 397 150 - 400 K/cumm [facility] Comment:Testing performed by : [address] [address] MPV 8.5(L) 9.1 - 12.3 fL [facility] Comment:Testing performed by : [address] [address] RBC 3.47(L) 3.90 - 5.20 M/cumm [facility] Comment:Testing performed by : [address] [address] MCV 85.3 81.3 - 96.4 fL [facility] Comment:Testing performed by : [address] [address] MCH 28.5 27.1 - 33.3 pg [facility] LEA Comment:Testing performed by : [address] [address] MCHC 33.4 32.3 - 35.7 g/dL [facility] Comment:Testing performed by : [address] [address] RDW CV 14.5 11.1 - 14.9 % [facility] LEA Comment:Testing performed by : [address] [address] RDW SD 44.8 35.7 - 48.1 fL [facility] LEA Comment:Testing performed by : [address] [address] NRBC abs 0.00 0.00 - 0.01 K/cumm [facility] LEA Comment:Testing performed by : [address] [address] Blood 12/10/2024 3:13 AM CDT 12/10/2024 3:18 AM CDT Nika Calle NP LAB BLOOD ORDERABLES Final Re sult [facility] [address] [facility] Department [place] [address] * (ABNORMAL) Basic metabolic panel (12/10/2024 3:13 AM CDT) Sodium 133(L) 135 - 145 mmol/L Comment:Testing performed by : [address] [address] Potassium, pl 3.9 3.3 - 4.9 mmol/L [facility] Comment:Testing performed by : [address] [address] Chloride 95(L) 97 - 110 mmol/L [facility] Comment:Testing performed by : [address] [address] CO2 27 22 - 32 mmol/L [facility] Comment:Testing performed by : [address] [address] Anion gap 11 2 - 15 mmol/L [facility] Comment:Testing performed by : [address] [address] BUN 25 6 - 25 mg/dL [facility] Comment:Testing performed by : [address] [address] Creatinine 1.57(H) 0.60 - 1.10 mg/dL [facility] Comment:Testing performed by : [address] [address] Glucose 116 70 - 199 mg/dL [facility] Comment: Interpretive [...] was last revised 2022. Testing performed by: [address] [address] Calcium 9.5 8.5 - 10.3 mg/dL [facility] Comment:Testing performed by : [address] [address] Blood 12/10/2024 3:13 AM CDT 12/10/2024 3:18 AM CDT us Nika Calle NP LAB BLOOD ORDERABLES Final Re sult Performing Organization Address City/State/[facility] Co de Phone Number [facility] [address] [facility] Department [place] [address] * XR Tibia Fibula Left 2 Views (12/09/2024 12:13 PM CDT) Anatomical Region Laterality Modality Lower Extremities, Lower Leg Left Com puted Radiography 12/09/2024 2:22 PM CDT Narrative 12/09/2024 2:25 PM CDT EXAM DESCRIPTION: XR TIBIA FIBULA LEFT 2 VIEWS REASON FOR STUDY: Pain in Leg, Left Celluitis on left leg. Has been in a little bit of pain. TECHNIQUE: 2 radiographic view(s) of the left lower extremity . COMPARISON: None FINDINGS: No acute fracture identified. No osseous erosions. Osteoarthritis of the left knee. Vascular calcifications are noted. IMPRESSION: No acute osseous abnormality. THIS IS AN ELECTRONICALLY VERIFIED FINAL REPORT 12/09/2024 2:25 PM - Electronically signed by Teddy Mei M.D. KR: PHAM Report ID: [id number] Reading Location: [id number] Procedure Note Teddy Mei MD - 12/09/2024 EXAM DESCRIPTION: XR TIBIA FIBULA LEFT 2 VIEWS REASON FOR STUDY: Pain in Leg, Left Celluitis on left leg. Has been in a little bit of pain. TECHNIQUE: 2 radiographic view(s) of the left lower extremity . COMPARISON: None FINDINGS: No acute fracture identified. No osseous erosions.Osteoarthritis of the left knee. Vascular calcifications are noted. IMPRESSION: No acute osseous abnormality. THIS IS AN ELECTRONICALLY VERIFIED FINAL REPORT 12/09/2024 2:25 PM - Electronically signed by Teddy Mei M.D. KR: PHAM Report ID: [id number] Reading Location: [place] [address] Sean Ngo MD IMG XR PROCEDURES Final R esult * (ABNORMAL) eGFR (12/09/2024 4:02 AM CDT) eGFR 26(L) >=60 mL/min/1. 73 m2 Comment: Interpretive Data [...] was last reviewed 2021. Testing performed by: [address] [address] Blood 12/09/2024 4:02 AM CDT 12/09/2024 4:50 AM CDT Nika Calle NP LAB BLOOD ORDERABLES Final Re sult [facility] [address] [facility] Department of Laboratories [place], [place] [id number] * (ABNORMAL) Differential, auto (12/09/2024 4:02 AM CDT) Neutrophil abs 6.59(H) 1.50 - 6.50 K/cumm Comment:Testing performed by : [address] [address] Imm gran abs 0.19(H) 0.00 - 0.10 K/cumm [facility] Comment:Testing performed by : [address] [address] Lymphocyte abs 1.70 0.80 - 3.30 K/cumm [facility] Comment:Testing performed by : [address] [address] Monocyte abs 0.92(H) 0.20 - 0.80 K/cumm [facility] Comment:Testing performed by : [address] [address] Eosinophil abs 0.25 0.00 - 0.50 K/cumm [facility] Comment:Testing performed by : [address] [address] Basophil abs 0.07 0.00 - 0.10 K/cumm [facility] Comment:Testing performed by : [address] [address] Neutrophil pct 67.7 % [facility] Comment: Interpretive Data Percent cell count reference ranges are not reported, since discordance with absolute values may lead to misinterpretation of CBC data. Current Interpretive Data was last revised on 2017. Testing performed by: [address] [address] Imm gran pct 2.0 % [facility] Comment: Interpretive Data Percent cell count reference ranges are not reported, since discordance with absolute values may lead to misinterpretation of CBC data. Current Interpretive Data was last revised on 2017. Testing performed by: [address] [address] Lymphocyte pct 17.5 % [facility] Comment: Interpretive Data Percent cell count reference ranges are not reported, since discordance with absolute values may lead to misinterpretation of CBC data. Current Interpretive Data was last revised on 2017. Testing performed by: [address] [address] Monocyte pct 9.5 % [facility] Comment: Interpretive Data Percent cell count reference ranges are not reported, since discordance with absolute values may lead to misinterpretation of CBC data. Current Interpretive Data was last revised on 2017. Testing performed by: [address] [address] Eosinophil pct 2.6 % [facility] Comment: Interpretive Data Percent cell count reference ranges are not reported, since discordance with absolute values may lead to misinterpretation of CBC data. Current Interpretive Data was last revised on 2017. Testing performed by: [address] [address] Basophil pct 0.7 % [facility] Comment: Interpretive Data Percent cell count reference ranges are not reported, since discordance with absolute values may lead to misinterpretation of CBC data. Current Interpretive Data was last revised on 2017. Testing performed by: [address] [address] Blood 12/09/2024 4:02 AM CDT 12/09/2024 4:49 AM CDT us Nika Calle NP LAB BLOOD ORDERABLES Final Re sult [facility] [address] [facility] Department [place] [address] * (ABNORMAL) CBC with auto differential (12/09/2024 4:02 AM CDT) WBC 9.72 3.80 - 9.90 K/cumm Comment:Testing performed by : [address] [address] Hgb 10.1(L) 11.9 - 15.5 g/dL [facility] Comment:Testing performed by : [address] [address] Hct 30.9(L) 35.6 - 45.5 % [facility] Comment:Testing performed by : [address] [address] Plt 442(H) 150 - 400 K/cumm [facility] Comment:Testing performed by : [address] [address] MPV 9.3 9.1 - 12.3 fL [facility] Comment:Testing performed by : [address] [address] RBC 3.58(L) 3.90 - 5.20 M/cumm [facility] Comment:Testing performed by : [address] [address] MCV 86.3 81.3 - 96.4 fL [facility] Comment:Testing performed by : [address] [address] MCH 28.2 27.1 - 33.3 pg [facility] Comment:Testing performed by : [address] [address] MCHC 32.7 32.3 - 35.7 g/dL [facility] Comment:Testing performed by : [address], [address] RDW CV 14.6 11.1 - 14.9 % [facility] Comment:Testing performed by : [address] [address] RDW SD 45.8 35.7 - 48.1 fL [facility] Comment:Testing performed by : [address] [address] NRBC abs 0.00 0.00 - 0.01 K/cumm [facility] Comment:Testing performed by : [address] [address] Blood 12/09/2024 4:02 AM CDT 12/09/2024 4:49 AM CDT Nika Calle NP LAB BLOOD ORDERABLES Final Re sult [facility] [address] [facility] Department [place] [address] * (ABNORMAL) Basic metabolic panel (12/09/2024 4:02 AM CDT) Sodium 135 135 - 145 mmol/L Comment:Testing performed by : [address] [address] Potassium, pl 3.8 3.3 - 4.9 mmol/L [facility] Comment:Testing performed by : [address] [address] Chloride 95(L) 97 - 110 mmol/L [facility] Comment:Testing performed by : [address] [address] CO2 28 22 - 32 mmol/L [facility] Comment:Testing performed by : [address] [address] Anion gap 12 2 - 15 mmol/L [facility] Comment:Testing performed by : [address] [address] BUN 28(H) 6 - 25 mg/dL [facility] Comment:Testing performed by : [address] [address] Creatinine 1.81(H) 0.60 - 1.10 mg/dL [facility] Comment:Testing performed by : [address] [address] Glucose 105 70 - 199 mg/dL [facility] Comment: Interpretive [...] was last revised 2022. Testing performed by: [facility], [address] [place] [address]., [address] Calcium 9.6 8.5 - 10.3 mg/dL [facility]A Comment:Testing performed by : [facility], [address] [place] [address]., [address] Blood 12/09/2024 4:02 AM CDT 12/09/2024 4:49 AM CDT Nika Calle NP LAB BLOOD ORDERABLES Final Re sult [facility] [address] [facility] Department [place] [address] * (ABNORMAL) eGFR (12/08/2024 4:44 AM CDT) eGFR 26(L) >=60 mL/min/1. 73 m2 Comment: Interpretive Data [...] was last reviewed 2021. Testing performed by: [address] [address] Blood 12/08/2024 4:44 AM CDT 12/08/2024 5:25 AM CDT us Nika Calle NP LAB BLOOD ORDERABLES Final [facility] [address] [facility] Department [place] [address] * (ABNORMAL) Differential, auto (12/08/2024 4:44 AM CDT) Neutrophil abs 6.92(H) 1.50 - 6.50 K/cumm Comment:Testing performed by : [address] [address] Imm gran abs 0.24(H) 0.00 - 0.10 K/cumm [facility] Comment:Testing performed by : [address] [address] Lymphocyte abs 1.61 0.80 - 3.30 K/cumm [facility] Comment:Testing performed by : [address] [address] Monocyte abs 0.99(H) 0.20 - 0.80 K/cumm [facility] Comment:Testing performed by : [address] [address] Eosinophil abs 0.20 0.00 - 0.50 K/cumm [facility] Comment:Testing performed by : [address] 60005 Basophil abs 0.06 0.00 - 0.10 K/cumm [facility] Comment:Testing performed by : [address] [address] Neutrophil pct 69.0 % [facility] Comment: Interpretive Data Percent cell count reference ranges are not reported, since discordance with absolute values may lead to misinterpretation of CBC data. Current Interpretive Data was last revised on 2017. Testing performed by: [address] [address] Imm gran pct 2.4 % [facility] Comment: Interpretive Data Percent cell count reference ranges are not reported, since discordance with absolute values may lead to misinterpretation of CBC data. Current Interpretive Data was last revised on 2017. Testing performed by: [address] [address] Lymphocyte pct 16.1 % [facility] Comment: Interpretive Data Percent cell count reference ranges are not reported, since discordance with absolute values may lead to misinterpretation of CBC data. Current Interpretive Data was last revised on 2017. Testing performed by: [address] [address] Monocyte pct 9.9 % [facility] Comment: Interpretive Data Percent cell count reference ranges are not reported, since discordance with absolute values may lead to misinterpretation of CBC data. Current Interpretive Data was last revised on 2017. Testing performed by: [address] [address] Eosinophil pct 2.0 % [facility] Comment: Interpretive Data Percent cell count reference ranges are not reported, since discordance with absolute values may lead to misinterpretation of CBC data. Current Interpretive Data was last revised on 2017. Testing performed by: [address] [address] Basophil pct 0.6 % [facility] Comment: Interpretive Data Percent cell count reference ranges are not reported, since discordance with absolute values may lead to misinterpretation of CBC data. Current Interpretive Data was last revised on 2017. Testing performed by: [address] [address] Blood 12/08/2024 4:44 AM CDT 12/08/2024 5:32 AM CDT us Nika Calle NP LAB BLOOD ORDERABLES Final Re sult [facility] [address] [facility] Department [place] [address] * (ABNORMAL) CBC with auto differential (12/08/2024 4:44 AM CDT) [facility] WBC 10.02(H) 3.80 - 9.90 K/cumm Comment:Testing performed by : [address] [address] Hgb 10.8(L) 11.9 - 15.5 g/dL [facility] Comment:Testing performed by : [address], [address] Hct 32.5(L) 35.6 - 45.5 % [facility] Comment:Testing performed by : [address], [address] Plt 466(H) 150 - 400 K/cumm [facility] Comment:Testing performed by : [address] [address] MPV 9.0(L) 9.1 - 12.3 fL [facility] Comment:Testing performed by : [address], [address] RBC 3.78(L) 3.90 - 5.20 M/cumm [facility] Comment:Testing performed by : [address], [address] MCV 86.0 81.3 - 96.4 fL [facility] Comment:Testing performed by : [address] [address] MCH 28.6 27.1 - 33.3 pg [facility] Comment:Testing performed by : [address], [address] MCHC 33.2 32.3 - 35.7 g/dL [facility] Comment:Testing performed by : [address], [address] RDW CV 14.7 11.1 - 14.9 % [facility] Comment:Testing performed by : [address], [address] RDW SD 46.1 35.7 - 48.1 fL [facility] Comment:Testing performed by : [address], [address] NRBC abs 0.00 0.00 - 0.01 K/cumm [facility] Comment:Testing performed by : [address] [address] Blood 12/08/2024 4:44 AM CDT 12/08/2024 5:32 AM CDT Nika Calle NP LAB BLOOD ORDERABLES Final Re sult [facility] [address] [facility] Department [place] [address] * (ABNORMAL) Basic metabolic panel (12/08/2024 4:44 AM CDT) Sodium 135 135 - 145 mmol/L Comment:Testing performed by : [address] [address] Potassium, pl 4.0 3.3 - 4.9 mmol/L [facility] Comment:Testing performed by : [address] [address] Chloride 95(L) 97 - 110 mmol/L [facility] Comment:Testing performed by : [address] [address] CO2 28 22 - 32 mmol/L [facility] Comment:Testing performed by : [address] [address] Anion gap 12 2 - 15 mmol/L [facility] Comment:Testing performed by : [address] [address] BUN 26(H) 6 - 25 mg/dL [facility] Comment:Testing performed by : [address] [address] Creatinine 1.83(H) 0.60 - 1.10 mg/dL [facility] Comment:Testing performed by : [address] [address] Glucose 113 70 - 199 mg/dL [facility] Comment: Interpretive [...] was last revised 2022. Testing performed by: [facility], [address] [place] [address]., [address] Calcium 9.6 8.5 - 10.3 mg/dL [facility]A Comment:Testing performed by : [address] [address] Blood 12/08/2024 4:44 AM CDT 12/08/2024 5:25 AM CDT us Nika Calle NP LAB BLOOD ORDERABLES Final Re sult [facility] [address] [facility] Department [place] [address] * (ABNORMAL) eGFR (12/07/2024 4:30 AM CDT) eGFR 33(L) >=60 mL/min/1. 73 m2 Comment: Interpretive Data [...] was last reviewed 2021. Testing performed by: [address] [address] Blood 12/07/2024 4:30 AM CDT 12/07/2024 5:09 AM CDT Nika Calle NP LAB BLOOD ORDERABLES Final Re sult [facility] [address] [facility] Department [place] [address] * (ABNORMAL) Differential, auto (12/07/2024 4:30 AM CDT) Neutrophil abs 7.8(H) 1.5 - 6.5 K/cumm Comment:Testing performed by : [address] [address] Imm gran abs 0.2(H) 0.0 - 0.1 K/cumm [facility] Comment:Testing performed by : [address] [address] Lymphocyte abs 1.5 0.8 - 3.3 K/cumm [facility] Comment:Testing performed by : [address] [address] Monocyte abs 1.1(H) 0.2 - 0.8 K/cumm [facility] Comment:Testing performed by : [address] [address] Eosinophil abs 0.4 0.0 - 0.5 K/cumm [facility] Comment:Testing performed by : [address] [address]1985 Basophil abs 0.1 0.0 - 0.1 K/cumm [facility] Comment:Testing performed by : [address] [address]161 Neutrophil pct 71.0 % [facility] Comment: Interpretive Data Percent cell count reference ranges are not reported, since discordance with absolute values may lead to misinterpretation of CBC data. Current Interpretive Data was last revised on 2017. Testing performed by: [address] [address] Imm gran pct 2.0 % [facility] Comment: Interpretive Data Percent cell count reference ranges are not reported, since discordance with absolute values may lead to misinterpretation of CBC data. Current Interpretive Data was last revised on 2017. Testing performed by: [address] [address] Lymphocyte pct 13.6 % [facility] Comment: Interpretive Data Percent cell count reference ranges are not reported, since discordance with absolute values may lead to misinterpretation of CBC data. Current Interpretive Data was last revised on 2017. Testing performed by: [address] [address] Monocyte pct 9.6 % [facility] Comment: Interpretive Data Percent cell count reference ranges are not reported, since discordance with absolute values may lead to misinterpretation of CBC data. Current Interpretive Data was last revised on 2017. Testing performed by: [address] [address] Eosinophil pct 3.2 % [facility] Comment: Interpretive Data Percent cell count reference ranges are not reported, since discordance with absolute values may lead to misinterpretation of CBC data. Current Interpretive Data was last revised on 2017. Testing performed by: [address] [address]689 Basophil pct 0.6 % [facility] Comment: Interpretive Data Percent cell count reference ranges are not reported, since discordance with absolute values may lead to misinterpretation of CBC data. Current Interpretive Data was last revised on 2017. Testing performed by: [address] [address] Blood 12/07/2024 4:30 AM CDT 12/07/2024 5:18 AM CDT us Nika Calle NP LAB BLOOD ORDERABLES Final Re sult [facility] [address] [facility] Department [place] [address] * (ABNORMAL) CBC with auto differential (12/07/2024 4:30 AM CDT) [facility] WBC 11.0(H) 3.8 - 9.9 K/cumm Comment:Testing performed by : [address] [address] Hgb 10.4(L) 11.9 - 15.5 g/dL [facility] Comment:Testing performed by : [address] [address] Hct 32.4(L) 35.6 - 45.5 % [facility] Comment:Testing performed by : [address] [address]345 Plt 440(H) 150 - 400 K/cumm [facility] Comment:Testing performed by : [address], [address] MPV 9.5 9.1 - 12.3 fL [facility] Comment:Testing performed by : [address], [address] RBC 3.75(L) 3.90 - 5.20 M/cumm [facility] Comment:Testing performed by : [address], [address]99 MCV 86.4 81.3 - 96.4 fL [facility] Comment:Testing performed by : [address], [address] MCH 27.7 27.1 - 33.3 pg [facility] Comment:Testing performed by : [address], [address] MCHC 32.1(L) 32.3 - 35.7 g/dL [facility] Comment:Testing performed by : [address], [address] RDW CV 14.7 11.1 - 14.9 % [facility] Comment:Testing performed by : [address], [address] RDW SD 46.4 35.7 - 48.1 fL [facility] Comment:Testing performed by : [address], [address]87[address] NRBC abs 0.00 0.00 - 0.01 K/cumm [facility] Comment:Testing performed by : [address] [address] Blood 12/07/2024 4:30 AM CDT 12/07/2024 5:18 AM CDT Nika Calle NP LAB BLOOD ORDERABLES Final Re sult [facility] [address] [facility] Department [place] [address] * (ABNORMAL) Basic metabolic panel (12/07/2024 4:30 AM CDT) Sodium 138 135 - 145 mmol/L Comment:Testing performed by : [address] [address] Potassium, pl 4.3 3.3 - 4.9 mmol/L [facility] Comment:Testing performed by : [address] [address] Chloride 97 97 - 110 mmol/L [facility] Comment:Testing performed by : [address] [address] CO2 28 22 - 32 mmol/L [facility] Comment:Testing performed by : [address] [address] Anion gap 13 2 - 15 mmol/L [facility] Comment:Testing performed by : [address] [address] BUN 24 6 - 25 mg/dL [facility] Comment:Testing performed by : [address] [address] Creatinine 1.49(H) 0.60 - 1.10 mg/dL [facility] Comment:Testing performed by : [address] [address] Glucose 114 70 - 199 mg/dL [facility] Comment: Interpretive [...] was last revised 2022. Testing performed by: [facility], [address] [place] [address]., [address] Calcium 9.8 8.5 - 10.3 mg/dL [facility] LEA Comment:Testing performed by : [address] [address] Blood 12/07/2024 4:30 AM CDT 12/07/2024 5:09 AM CDT us Nika Calle NP LAB BLOOD ORDERABLES Final Re sult [facility] [address] [facility] Department of Laboratories [place], [place] [id number] * (ABNORMAL) eGFR (12/06/2024 5:07 AM CDT) eGFR 33(L) >=60 mL/min/1. 73 m2 Comment: Interpretive Data [...] was last reviewed 2021. Testing performed by: [address] [address] Blood 12/06/2024 5:07 AM CDT 12/06/2024 5:49 AM CDT Nika Calle NP LAB BLOOD ORDERABLES Final Re sult [facility] [address] [facility] Department [place] [address] * (ABNORMAL) Differential, auto (12/06/2024 5:07 AM CDT) Neutrophil abs 6.1 1.5 - 6.5 K/cumm Comment:Testing performed by : [address] [address] Imm gran abs 0.2(H) 0.0 - 0.1 K/cumm [facility] Comment:Testing performed by : [address] [address] Lymphocyte abs 1.6 0.8 - 3.3 K/cumm [facility] Comment:Testing performed by : [address] [address] Monocyte abs 0.9(H) 0.2 - 0.8 K/cumm [facility] Comment:Testing performed by : [address] [address] Eosinophil abs 0.4 0.0 - 0.5 K/cumm [facility] Comment:Testing performed by : [address] [address]23 Basophil abs 0.1 0.0 - 0.1 K/cumm [facility] Comment:Testing performed by : [address] [address] Neutrophil pct 65.2 % [facility] Comment: Interpretive Data Percent cell count reference ranges are not reported, since discordance with absolute values may lead to misinterpretation of CBC data. Current Interpretive Data was last revised on 2017. Testing performed by: [address] [address] Imm gran pct 2.4 % [facility] Comment: Interpretive Data Percent cell count reference ranges are not reported, since discordance with absolute values may lead to misinterpretation of CBC data. Current Interpretive Data was last revised on 2017. Testing performed by: [address] [address] Lymphocyte pct 17.4 % [facility] Comment: Interpretive Data Percent cell count reference ranges are not reported, since discordance with absolute values may lead to misinterpretation of CBC data. Current Interpretive Data was last revised on 2017. Testing performed by: [address] [address] Monocyte pct 9.9 % [facility] Comment: Interpretive Data Percent cell count reference ranges are not reported, since discordance with absolute values may lead to misinterpretation of CBC data. Current Interpretive Data was last revised on 2017. Testing performed by: [address] [address] Eosinophil pct 4.5 % [facility] Comment: Interpretive Data Percent cell count reference ranges are not reported, since discordance with absolute values may lead to misinterpretation of CBC data. Current Interpretive Data was last revised on 2017. Testing performed by: [address] [address] Basophil pct 0.6 % [facility] Comment: Interpretive Data Percent cell count reference ranges are not reported, since discordance with absolute values may lead to misinterpretation of CBC data. Current Interpretive Data was last revised on 2017. Testing performed by: [address] [address] Blood 12/06/2024 5:07 AM CDT 12/06/2024 5:49 AM CDT us Nika Calle NP LAB BLOOD ORDERABLES Final Re sult [facility] LEA [address] [facility] Department [place] [address] * (ABNORMAL) CBC with auto differential (12/06/2024 5:07 AM CDT) WBC 9.3 3.8 - 9.9 K/cumm Comment:Testing performed by : [address] [address] Hgb 9.7(L) 11.9 - 15.5 g/dL [facility] Comment:Testing performed by : [address] [address] Hct 30.0(L) 35.6 - 45.5 % [facility] Comment:Testing performed by : [address] [address]277 Plt 410(H) 150 - 400 K/cumm [facility] Comment:Testing performed by : [address] [address] MPV 9.1 9.1 - 12.3 fL [facility] Comment:Testing performed by : [address] 812[address] RBC 3.43(L) 3.90 - 5.20 M/cumm [facility] Comment:Testing performed by : [address] [address]87 MCV 87.5 81.3 - 96.4 fL [facility] Comment:Testing performed by : [address] [address]496 MCH 28.3 27.1 - 33.3 pg [facility] Comment:Testing performed by : [address] [address]1693 MCHC 32.3 32.3 - 35.7 g/dL [facility] Comment:Testing performed by : [address] [address] RDW CV 15.0(H) 11.1 - 14.9 % [facility] Comment:Testing performed by : [address] [address]67[address] RDW SD 47.5 35.7 - 48.1 fL [facility] Comment:Testing performed by : [address] 51420 NRBC abs 0.00 0.00 - 0.01 K/cumm [facility] Comment:Testing performed by : [address], [address] Blood 12/06/2024 5:07 AM CDT 12/06/2024 5:49 AM CDT us Nika Calle NP LAB BLOOD ORDERABLES Final Re sult [facility] [address] [facility] Department [place] [address] * (ABNORMAL) Basic metabolic panel (12/06/2024 5:07 AM CDT) Sodium 137 135 - 145 mmol/L Comment:Testing performed by : [address] [address] Potassium, pl 4.4 3.3 - 4.9 mmol/L [facility] Comment:Testing performed by : [address] [address] Chloride 97 97 - 110 mmol/L [facility] Comment:Testing performed by : [address] 6[address]25 CO2 30 22 - 32 mmol/L [facility] Comment:Testing performed by : [address] [address] Anion gap 10 2 - 15 mmol/L [facility] Comment:Testing performed by : [address] [address] BUN 22 6 - 25 mg/dL [facility] Comment:Testing performed by : [address] [address] Creatinine 1.50(H) 0.60 - 1.10 mg/dL [facility] Comment:Testing performed by : [address] [address] Glucose 108 70 - 199 mg/dL [facility] Comment: Interpretive [...] was last revised 2022. Testing performed by: [facility], [address] [place] [address]., [address] Calcium 9.1 8.5 - 10.3 mg/dL [facility] LEA Comment:Testing performed by : [address] [address] Blood 12/06/2024 5:07 AM CDT 12/06/2024 5:49 AM CDT us Nika Calle NP LAB BLOOD ORDERABLES Final Re sult [facility] [address] [facility] Department [place] [address] * (ABNORMAL) eGFR (12/05/2024 4:58 AM CDT) eGFR 35(L) >=60 mL/min/1. 73 m2 Comment: Interpretive Data [...] was last reviewed 2021. Testing performed by: [address] [address] Blood 12/05/2024 4:58 AM CDT 12/05/2024 5:12 AM CDT us Nika Calle RUBY LAB BLOOD ORDERABLES Final Re sult [facility] [address] [facility] Department [place] [address] * (ABNORMAL) Differential, auto (12/05/2024 4:58 AM CDT) Neutrophil abs 7.3(H) 1.5 - 6.5 K/cumm Comment:Testing performed by : [address] [address] Imm gran abs 0.2(H) 0.0 - 0.1 K/cumm HANNAH Comment:Testing performed by : [address] [address] Lymphocyte abs 1.3 0.8 - 3.3 K/cumm HANNAH Comment:Testing performed by : [address] [address] Monocyte abs 1.0(H) 0.2 - 0.8 K/cumm HANNAH Comment:Testing performed by : [address] [address] Eosinophil abs 0.4 0.0 - 0.5 K/cumm HANNAH Comment:Testing performed by : [address] [address] Basophil abs 0.0 0.0 - 0.1 K/cumm HANNAH Comment:Testing performed by : [address] [address] Neutrophil pct 71.4 % HANNAH Comment: Interpretive Data Percent cell count reference ranges are not reported, since discordance with absolute values may lead to misinterpretation of CBC data. Current Interpretive Data was last revised on 2017. Testing performed by: [address] [address] Imm gran pct 1.5 % HANNAH Comment: Interpretive Data Percent cell count reference ranges are not reported, since discordance with absolute values may lead to misinterpretation of CBC data. Current Interpretive Data was last revised on 2017. Testing performed by: [address] [address] Lymphocyte pct 12.9 % [facility] Comment: Interpretive Data Percent cell count reference ranges are not reported, since discordance with absolute values may lead to misinterpretation of CBC data. Current Interpretive Data was last revised on 2017. Testing performed by: [address] [address] Monocyte pct 10.0 % [facility] Comment: Interpretive Data Percent cell count reference ranges are not reported, since discordance with absolute values may lead to misinterpretation of CBC data. Current Interpretive Data was last revised on 2017. Testing performed by: [address] [address] Eosinophil pct 3.8 % [facility] Comment: Interpretive Data Percent cell count reference ranges are not reported, since discordance with absolute values may lead to misinterpretation of CBC data. Current Interpretive Data was last revised on 2017. Testing performed by: [address] [address] Basophil pct 0.4 % [facility] Comment: Interpretive Data Percent cell count reference ranges are not reported, since discordance with absolute values may lead to misinterpretation of CBC data. Current Interpretive Data was last revised on 2017. Testing performed by: [address] [address] Blood 12/05/2024 4:58 AM CDT 12/05/2024 5:12 AM CDT Nika Calle NP LAB BLOOD ORDERABLES Final Re sult HANNAH [address] [facility] Department [place] [address] * (ABNORMAL) CBC with auto differential (12/05/2024 4:58 AM CDT) WBC 10.3(H) 3.8 - 9.9 K/cumm Comment:Testing performed by : [address] [address] Hgb 9.1(L) 11.9 - 15.5 g/dL HANNAH Comment:Testing performed by : [address] [address] Hct 28.4(L) 35.6 - 45.5 % HANNAH Comment:Testing performed by : [address] [address] Plt 396 150 - 400 K/cumm HANNAH Comment:Testing performed by : [address] [address] MPV 9.1 9.1 - 12.3 fL HANNAH Comment:Testing performed by : [address] [address] RBC 3.23(L) 3.90 - 5.20 M/cumm HANNAH Comment:Testing performed by : [address] [address] MCV 87.9 81.3 - 96.4 fL HANNAH Comment:Testing performed by : [address] [address] MCH 28.2 27.1 - 33.3 pg HANNAH Comment:Testing performed by : [address] [address] MCHC 32.0(L) 32.3 - 35.7 g/dL HANNAH Comment:Testing performed by : [address] [address] RDW CV 15.0(H) 11.1 - 14.9 % HANNAH Comment:Testing performed by : [address] [address] RDW SD 48.8(H) 35.7 - 48.1 fL HANNAH Comment:Testing performed by : [address] [address] NRBC abs 0.00 0.00 - 0.01 K/cumm HANNAH Comment:Testing performed by : [address] [address] Blood 12/05/2024 4:58 AM CDT 12/05/2024 5:12 AM CDT us Nika aClle NP LAB BLOOD ORDERABLES Final Re sult HANNAH [address] [facility] Department [place] [address] * (ABNORMAL) Basic metabolic panel (12/05/2024 4:58 AM CDT) Sodium 139 135 - 145 mmol/L Comment:Testing performed by : [address] [address] Potassium, pl 4.5 3.3 - 4.9 mmol/L HANNAH Comment:Testing performed by : [address] [address] Chloride 101 97 - 110 mmol/L HANNAH Comment:Testing performed by : [address] [address] CO2 28 22 - 32 mmol/L HANNAH Comment:Testing performed by : [address] [address] Anion gap 10 2 - 15 mmol/L HANNAH Comment:Testing performed by : [address] [address] BUN 22 6 - 25 mg/dL HANNAH Comment:Testing performed by : [address] [address] Creatinine 1.42(H) 0.60 - 1.10 mg/dL HANNAH Comment:Testing performed by : [address] [address] Glucose 109 70 - 199 mg/dL HANNAH Comment: Interpretive [...] was last revised 2022. Testing performed by: [facility] [address] [place] [address]., [address] Calcium 9.3 8.5 - 10.3 mg/dL HANNAH LEA Comment:Testing performed by : [address] [address] Blood 12/05/2024 4:58 AM CDT 12/05/2024 5:12 AM CDT Nika Calle LAB BLOOD ORDERABLES Final Re sult Performing Organization Address [facility] de Phone Number HANNAH [address] [facility] Department [place] [address] * (ABNORMAL) eGFR (12/04/2024 5:05 AM CDT) eGFR 39(L) >=60 mL/min/1. 73 m2 Comment: [...] was last reviewed 2021. Testing performed by: [address] [address] Blood 12/04/2024 5:05 AM CDT 12/04/2024 5:29 AM CDT Nika Calle LAB BLOOD ORDERABLES Final Re sult Performing Organization Address [facility]/State/ZIP Co de Phone Number HANNAH [address] [facility] Department [place] [address] * (ABNORMAL) Differential, auto (12/04/2024 5:05 AM CDT) Neutrophil abs 6.4 1.5 - 6.5 K/cumm Comment:Testing performed by : [address] [address] Imm gran abs 0.2(H) 0.0 - 0.1 K/cumm HANNAH Comment:Testing performed by : [address] [address] Lymphocyte abs 1.2 0.8 - 3.3 K/cumm HANNAH Comment:Testing performed by : [address] [address] Monocyte abs 1.0(H) 0.2 - 0.8 K/cumm HANNAH Comment:Testing performed by : [address] [address] Eosinophil abs 0.3 0.0 - 0.5 K/cumm HANNAH Comment:Testing performed by : [address] [address] Basophil abs 0.1 0.0 - 0.1 K/cumm HANNAH Comment:Testing performed by : [address] [address] Neutrophil pct 70.2 % HANNAH Comment: Interpretive Data Percent cell count reference ranges are not reported, since discordance with absolute values may lead to misinterpretation of CBC data. Current Interpretive Data was last revised on 2017. Testing performed by: [address] [address] Imm gran pct 1.7 % HANNAH Comment: Interpretive Data Percent cell count reference ranges are not reported, since discordance with absolute values may lead to misinterpretation of CBC data. Current Interpretive Data was last revised on 2017. Testing performed by: [address] [address] Lymphocyte pct 12.8 % HANNAH Comment: Interpretive Data Percent cell count reference ranges are not reported, since discordance with absolute values may lead to misinterpretation of CBC data. Current Interpretive Data was last revised on 2017. Testing performed by: [address] [address] Monocyte pct 11.5 % HANNAH Comment: Interpretive Data Percent cell count reference ranges are not reported, since discordance with absolute values may lead to misinterpretation of CBC data. Current Interpretive Data was last revised on 2017. Testing performed by: [address] [address] Eosinophil pct 3.1 % HANNAH Comment: Interpretive Data Percent cell count reference ranges are not reported, since discordance with absolute values may lead to misinterpretation of CBC data. Current Interpretive Data was last revised on 2017. Testing performed by: [address] [address] Basophil pct 0.7 % HANNAH Comment: Interpretive Data Percent cell count reference ranges are not reported, since discordance with absolute values may lead to misinterpretation of CBC data. Current Interpretive Data was last revised on 2017. Testing performed by: [address] [address] Blood 12/04/2024 5:05 AM CDT 12/04/2024 5:29 AM CDT us Nika Calle NP LAB BLOOD ORDERABLES Final Re sult HANNAH [address] [facility] Department [place] [address] * (ABNORMAL) CBC with auto differential (12/04/2024 5:05 AM CDT) WBC 9.1 3.8 - 9.9 K/cumm Comment:Testing performed by : [address] [address] Hgb 8.9(L) 11.9 - 15.5 g/dL HANNAH LEA Comment:Testing performed by : [address] [address] Hct 28.5(L) 35.6 - 45.5 % HANNAH Comment:Testing performed by : [address] [address] Plt 383 150 - 400 K/cumm HANNAH Comment:Testing performed by : [address] [address] MPV 9.2 9.1 - 12.3 fL HANNAH Comment:Testing performed by : [address], [address] RBC 3.20(L) 3.90 - 5.20 M/cumm HANNAH Comment:Testing performed by : [address], [address] MCV 89.1 81.3 - 96.4 fL HANNAH Comment:Testing performed by : [address] [address] MCH 27.8 27.1 - 33.3 pg HANNAH Comment:Testing performed by : [address], [address] MCHC 31.2(L) 32.3 - 35.7 g/dL HANNAH Comment:Testing performed by : [address], [address] RDW CV 15.0(H) 11.1 - 14.9 % HANNAH Comment:Testing performed by : [address], [address] RDW SD 49.6(H) 35.7 - 48.1 fL HANNAH Comment:Testing performed by : [address], [address] NRBC abs 0.00 0.00 - 0.01 K/cumm HANNAH Comment:Testing performed by : [address], [address] Blood 12/04/2024 5:05 AM CDT 12/04/2024 5:29 AM CDT us Nika Calle NP LAB BLOOD ORDERABLES Final Re sult HANNAH [address] [facility] Department [place] [address] * (ABNORMAL) Basic metabolic panel (12/04/2024 5:05 AM CDT) Sodium 139 135 - 145 mmol/L Comment:Testing performed by : [address] [address] Potassium, pl 4.6 3.3 - 4.9 mmol/L HANNAH Comment:Testing performed by : [address], [place]., [address] Chloride 100 97 - 110 mmol/L HANNAH Comment:Testing performed by : [address], [place]., [address] CO2 28 22 - 32 mmol/L HANNAH Comment:Testing performed by : [address], [place]., [address] Anion gap 11 2 - 15 mmol/L HANNAH Comment:Testing performed by : [address] [address] BUN 26(H) 6 - 25 mg/dL HANNAH Comment:Testing performed by : [address] [address] Creatinine 1.30(H) 0.60 - 1.10 mg/dL HANNAH Comment:Testing performed by : [address] [address] Glucose 104 70 - 199 mg/dL HANNAH Comment: Interpretive [...] was last revised 2022. Testing performed by: [address], [place]., [address] Calcium 9.0 8.5 - 10.3 mg/dL HANNAH LEA Comment:Testing performed by : [facility], [address] [place] [address]., [address] Blood 12/04/2024 5:05 AM CDT 12/04/2024 5:29 AM CDT us Nika Calle NP LAB BLOOD ORDERABLES Final Re sult HANNAH [address] [facility] Department of Laboratories [place], [place] [id number] * US VEIN DUPLEX LOWER EXTREMITY LEFT LIMITED, UNILATERAL (12/03/2024 4:47 PM CDT) Anatomical Region Laterality Modality Vascular Left Ultrasound 12/03/2024 4:21 PM CDT Narrative 12/04/2024 8:56 AM CDT Lower Extremity Venous Report Patient Name: LUCILLE SEVILLA MAE : 1935 (89y 2m) Gender: F Study Date: 12/03/2024 04:21:28 PM Speech Writer: Ariella Alonzo RDMS, RVT Location: [id number] Order Provider: NIKA CALLE Quality: Adequate Ref Provider: NIKA CALLE PROCEDURES: Vascular Report: A non-invasive vascular imaging study of the left lower extremity veins was performed using B-mode ultrasound, color flow, and spectral Doppler. INDICATIONS: Pain and redness in left leg. HISTORY: Cellulitis. COMPARISONS: The previous exam was completed on 07/22/2024. The previous venous doppler was negative for DVT in the left leg. - FINDINGS: Left: Negative for deep and superficial vein thrombosis in the left lower extremity. For comparisons purposes, the right common femoral vein was interrogated. The common femoral vein Doppler flow was phasic, spontaneous and responded normally to distal augmentation. Provider Notification: RUBY Calle via [employer]. CONCLUSIONS: 1. There is no evidence of deep vein thrombosis in the left lower extremity. ATTESTATION: I have reviewed and interpreted the pertinent images and measurements of this study. I attest to the conclusions in the final report that is provided above. Electronically Signed By: Kristopher Escobar MD 12/04/2024 8:23:34 AM CDT Procedure Note Kristopher Escobar MD - 12/04/2024 Lower Extremity Venous Report Patient Name: LUCILLE SEVILLA MAE : 1935 (89y 2m) Gender: F Study Date: 12/03/2024 04:21:28 PM Speech Writer: Ariella Alonzo RDMS,Asmita Location:[id number] Order Provider: NIKA CALLE Quality: Adequate Ref Provider: NIKA CALLE PROCEDURES: Vascular Report: A non-invasive vascular imaging study of the left lowerextremity veins was performed using B-mode ultrasound, color flow, and spectral Doppler. INDICATIONS: Pain and redness in left leg. HISTORY: Cellulitis. COMPARISONS: The previous exam was completed on 07/22/2024. The previous venousdoppler was negative for DVT in the left leg. - FINDINGS: Left: Negative for deep and superficial vein thrombosis in the left lowerextremity. For comparisons purposes, the right common femoral vein was interrogated. Thecommon femoral vein Doppler flow was phasic, spontaneous and responded normally to distalaugmentation. Provider Notification: RUBY Calle via [facility]. CONCLUSIONS: 1. There is no evidence of deep vein thrombosis in the left lowerextremity. ATTESTATION: I have reviewed and interpreted the pertinent images and measurements ofthis study. I attest to the conclusions in the final report that is provided above. Electronically Signed By: Kristopher Escobar MD 12/04/2024 8:23:34 AM CDT Nika Calle NP IMG US PROCEDURES Final Resul t * (ABNORMAL) Urinalysis reflex to microscopic and culture Urine (12/03/2024 12:57 PM CDT) Color, ur Yellow Yellow Comment:Testing performed by : [address] [address] Clarity, ur Clear Clear HANNAH Comment:Testing performed by : [address] [address] Specific gravity, ur 1.009 1.003 - 1.030 HANNAH Comment:Testing performed by : [address] [address] pH, urine 6.5 HANNAH Comment: Interpretive Data U rine pH is affected by diet, medications, systemic acid-base disturbances, and renal tubular function. pH may affect urinary stone formation. For example, urine pH below 6.0 may help reduce the tendency for calcium phosphate stones and pH greater than 6.0 may reduce the tendency for uric acid stone formation. Source: [email or web address] Current Interpretive Data was last revised on 2017 Testing performed by: [address] [address] Protein, ur ql Negative Negative HANNAH LEA Comment:Testing performed by : [facility], [address] [place] [address], [place]., [address] Glucose, ur ql Negative Negative HANNAH Comment:Testing performed by : [facility], [address] [place] [address], [place]., [address] Ketones, ur Negative Negative HANNAH Comment:Testing performed by : [address], [place]., [address] Bilirubin, ur Negative Negative HANNAH Comment:Testing performed by : [facility], [address] [place] [address], [place]., [address] Blood, ur Negative Negative HANNAH Comment:Testing performed by : [address], [place]., [address] Urobilinogen, ur <2.0 <2.0 mg/dL HANNAH Comment:Testing performed by : [address], [place]., [address] Nitrite, ur Negative Negative HANNAH Comment:Testing performed by : [address], [place]., [address] Leukocyte esterase, ur 3+(A) Negative HANNAH Comment:Testing performed by : [address], [place]., [address] UA reflex comment Reflex to microscopic UA will be performed. HANNAH Comment:Testing performed by : [address], [place]., [address] Urine 12/03/2024 12:5 7 PM CDT 12/03/2024 1:01 PM CDT Narrative HANNAH - 12/03/2024 1:04 PM CDT If patient unable to urinate, straight cath us Jaimie Romero MD LAB MICROBIOLOGY - GENERAL ORDERABLES Final Result HANNAH [address] [facility] Department [place] [address] * (ABNORMAL) Urinalysis, microscopic only (12/03/2024 12:57 PM CDT) WBC, ur 11-20(A) 0 - 5 /HPF Comment:Testing performed by : [facility], [address] [place] [address]., [address] RBC, ur 0-2 0 - 2 /HPF HANNAH LEA Comment:Testing performed by : [facility], [address] [place] [address]., [address] Culture Reflex Comment Reflex to urine culture will be performed. HANNAH Comment:Testing performed by : [facility], [address] [place] [address]., [address] Urine 12/03/2024 12:5 7 PM CDT 12/03/2024 1:01 PM CDT us Jaimie Romero MD LAB URINE ORDERABLES Final Result Performing Organization Address [facility] Co de Phone Number [place] [id number] [facility] [place] [address] * Urine culture Urine (12/03/2024 12:57 PM CDT) Report Final Report: Less than 100,000 colonies/mL (clinically insignificant growth based on current clinical standards) Comment:Testing performed by : [facility], [address] [place] [address], [place]., [address] Organism (CLINICALLY INSIGNIFICANT GROWTH HANNAH Urine 12/03/2024 12:5 7 PM CDT 12/03/2024 4:29 PM CDT Narrative HANNAH LEA - 12/04/2024 5:30 PM CDT Urine culture reflexed based upon urinalysis results. Testing performed by [facility] ([phone]) us Jaimie Romero MD LAB MICROBIOLOGY - GENERAL ORDERABLES Final Result Performing Organization Address City/[facility]/ZIP Co de Phone Number SYBIL[address] [place] [address] * Blood culture Blood Peripheral (12/03/2024 11:27 AM CDT) Report Final Report: No growth Comment:Testing performed by : [facility], [address] [place] [address] Blood (Peripheral) 12/03/2024 11:27 AM CDT 12/03/2024 4:57 PM CDT Trang LEA - 12/08/2024 7:00 AM CDT From a different site than #1. Draw [...] performance characteristics have been verified by the [facility]. For questions about this culture, contact the Microbiology Laboratory at [phone]. Interpretive data was last revised on 24. Jaimie Romero MD LAB MICROBIOLOGY - GENERAL ORDERABLES Final Result HANNAH 6[address] [facility] Department [place] [address] * Blood culture Blood Peripheral (12/03/2024 11:27 AM CDT) Report Final Report: No growth Comment:Testing performed by : [facility], [address] [place]., [address] Blood (Peripheral) 12/03/2024 11:27 AM CDT 12/03/2024 4:57 PM CDT Narrative HANNAH LEA - 12/08/2024 7:00 AM CDT Draw Blood cultures before administration of Antibiotics [...] performance characteristics have been verified by the [facility]. For questions about this culture, contact the Microbiology Laboratory at [phone]. Interpretive data was last revised on 24. Jaimie Romero MD LAB MICROBIOLOGY - GENERAL ORDERABLES Final Result HANNAH [address] [facility] [place] [address] * Sepsis Lactate w/ Reflex (12/03/2024 10:16 AM CDT) [facility] Sepsis Lactate 1.7 0.7 - 2.0 mmol/L Comment:Testing performed by : [facility], [address] [place] [address]., [address] Blood 12/03/2024 10:1 6 AM CDT 12/03/2024 10:21 AM CDT us Jaimie Romero MD LAB BLOOD ORDERABLES Final Result HANNAH [facility] [place] [address] * (ABNORMAL) eGFR (12/03/2024 10:16 AM CDT) eGFR 39(L) >=60 mL/min/1. 73 m2 Comment: [...] was last reviewed 2021. Testing performed by: [address] [address] Blood 12/03/2024 10:1 6 AM CDT 12/03/2024 10:21 AM CDT Jaimie Romero MD LAB BLOOD ORDERABLES Final Result Performing Organization Address City/State/[facility] Co de Phone Number [facility] [address] [facility] Department [place] [address] * (ABNORMAL) Differential, auto (12/03/2024 10:16 AM CDT) Neutrophil abs 8.1(H) 1.5 - 6.5 K/cumm Comment:Testing performed by : [address] [address] Imm gran abs 0.2(H) 0.0 - 0.1 K/cumm HANNAH LEA Comment:Testing performed by : [address] [address] Lymphocyte abs 1.0 0.8 - 3.3 K/cumm [facility] Comment:Testing performed by : [address], [place]., [address] Monocyte abs 1.0(H) 0.2 - 0.8 K/cumm [facility] Comment:Testing performed by : [address], [place]., [address] Eosinophil abs 0.3 0.0 - 0.5 K/cumm [facility] Comment:Testing performed by : [address], [place]., [address] Basophil abs 0.1 0.0 - 0.1 K/cumm [facility] Comment:Testing performed by : [address] [address] Neutrophil pct 76.0 % [facility] Comment: Interpretive Data Percent cell count reference ranges are not reported, since discordance with absolute values may lead to misinterpretation of CBC data. Current Interpretive Data was last revised on 2017. Testing performed by: [address] [address] Imm gran pct 1.4 % [facility] Comment: Interpretive Data Percent cell count reference ranges are not reported, since discordance with absolute values may lead to misinterpretation of CBC data. Current Interpretive Data was last revised on 2017. Testing performed by: [address] [address] Lymphocyte pct 9.5 % [facility] Comment: Interpretive Data Percent cell count reference ranges are not reported, since discordance with absolute values may lead to misinterpretation of CBC data. Current Interpretive Data was last revised on 2017. Testing performed by: [address] [address] Monocyte pct 9.4 % [facility] Comment: Interpretive Data Percent cell count reference ranges are not reported, since discordance with absolute values may lead to misinterpretation of CBC data. Current Interpretive Data was last revised on 2017. Testing performed by: [address] [address] Eosinophil pct 3.1 % [facility] Comment: Interpretive Data Percent cell count reference ranges are not reported, since discordance with absolute values may lead to misinterpretation of CBC data. Current Interpretive Data was last revised on 2017. Testing performed by: [address] [address] Basophil pct 0.6 % HANNAH LEA Comment: Interpretive Data Percent cell count reference ranges are not reported, since discordance with absolute values may lead to misinterpretation of CBC data. Current Interpretive Data was last revised on 2017. Testing performed by: [address] [address] Blood 12/03/2024 10:1 6 AM CDT 12/03/2024 10:21 AM CDT Jaimie Romero MD LAB BLOOD ORDERABLES Final Result HANNAH [facility] Department [place] [address] * (ABNORMAL) CBC with auto differential (12/03/2024 10:16 AM CDT) WBC 10.6(H) 3.8 - 9.9 K/cumm Comment:Testing performed by : [address] [address] Hgb 9.9(L) 11.9 - 15.5 g/dL HANNAH LEA Comment:Testing performed by : [address] [address] Hct 31.3(L) 35.6 - 45.5 % HANNAH Comment:Testing performed by : [address] [address] Plt 384 150 - 400 K/cumm HANNAH Comment:Testing performed by : [address] [address] MPV 9.0(L) 9.1 - 12.3 fL HANNAH LEA Comment:Testing performed by : [address] [address] RBC 3.51(L) 3.90 - 5.20 M/cumm HANNAH LEA Comment:Testing performed by : [address] [address] MCV 89.2 81.3 - 96.4 fL HANNAH LEA Comment:Testing performed by : [address], [address] MCH 28.2 27.1 - 33.3 pg HANNAH LEA Comment:Testing performed by : [address] [address] MCHC 31.6(L) 32.3 - 35.7 g/dL HANNAH LEA Comment:Testing performed by : [address], [address] RDW CV 15.2(H) 11.1 - 14.9 % HANNAH LEA Comment:Testing performed by : [address], [address] RDW SD 49.8(H) 35.7 - 48.1 fL HANNAH LEA Comment:Testing performed by : [address], [address] NRBC abs 0.00 0.00 - 0.01 K/cumm HANNHA Comment:Testing performed by : [address], [address] Blood 12/03/2024 10:1 6 AM CDT 12/03/2024 10:21 AM CDT us Jaimie Romero MD LAB BLOOD ORDERABLES Final Result Performing Organization Address City/State/[facility] Co de Phone Number [facility] [address] [facility] Department of Laboratories [place], [place] [id number] * Erythrocyte sedimentation rate (12/03/2024 10:16 AM CDT) Pathologist [facility] Erythrocyte sedimentation rate 28 1 - 30 mm/hr Comment:Testing performed by : [address] [id number] Blood 12/03/2024 10:1 6 AM CDT 12/03/2024 10:21 AM CDT us Sherrywin Saner LARDER COOK LAB BLOOD ORDERABLES Final Re sult Performing Organization Address [facility] Co de Phone Number [facility] [place] [address] * (ABNORMAL) CRP (acute phase) (12/03/2024 10:16 AM CDT) Pathologist [facility] CRP 14.5(H) <=10.0 mg/L Comment:Testing performed by : [address] [id number] Blood 12/03/2024 10:1 6 AM CDT 12/03/2024 10:21 AM CDT Nika Calle LARDER COOK LAB BLOOD ORDERABLES Final Re sult Performing Organization Address [facility] Co de Phone Number HANNAH [address] [place] [address] * (ABNORMAL) Comprehensive metabolic panel (12/03/2024 10:16 AM CDT) [facility] Sodium 137 135 - 145 mmol/L Comment:Testing performed by : [address] [address] Potassium, pl 4.7 3.3 - 4.9 mmol/L HANNA[facility] Comment:Testing performed by : [address] [address] Chloride 102 97 - 110 mmol/L HANNAH Comment:Testing performed by : [address] [address] CO2 24 22 - 32 mmol/L [facility]ANNA[facility] Comment:Testing performed by : [address] [address] Anion gap 11 2 - 15 mmol/L [facility]ANNA[facility] Comment:Testing performed by : [address] [address] BUN 25 6 - 25 mg/dL HANNA[facility] Comment:Testing performed by : [address] [address] Creatinine 1.30(H) 0.60 - 1.10 mg/dL [facility]NA[facility] Comment:Testing performed by : [address] [address] Glucose 158 70 - 199 mg/dL HANNAH Comment: Interpretive [...] was last revised 2022. Testing performed by: [address] [address] Calcium 9.1 8.5 - 10.3 mg/dL HANNAH Comment:Testing performed by : [address] [address] Bilirubin, total 0.2 0.1 - 1.2 mg/dL [facility]NA[facility] Comment:Testing performed by : [address] [address] Protein, pl 6.7 6.5 - 8.5 g/dL [facility]NA[facility] Comment:Testing performed by : [address] [address] Albumin 3.4(L) 3.5 - 5.0 g/dL [facility]NA[facility] Comment:Testing performed by : [address] [address] Alk phos 120 40 - 130 Units/L [facility]NA[facility] Comment:Testing performed by : [address] [address] ALT 13 7 - 45 Units/L HANNA[facility] Comment:Testing performed by : [address] [address] AST 14 10 - 45 Units/L HANNAH Comment:Testing performed by : [address] [address] Blood 12/03/2024 10:1 6 AM CDT 12/03/2024 10:21 AM CDT us Jaimie Romero MD LAB BLOOD ORDERABLES Final Result [facility]NA[facility] [address] [facility] Department [place] [address] * US Carotids Duplex Bilateral (11/02/2024 11:22 AM WOOD WEB WEAVING MACHINE OPERATOR) Anatomical Region Laterality Modality Vascular Bilateral Ultrasound 11/02/2024 9:53 AM WOOD WEB WEAVING MACHINE OPERATOR Narrative 11/02/2024 6:34 PM WOOD WEB WEAVING MACHINE OPERATOR [facility] [address] [place] [address] Carotid Duplex Ultrasound Report Patient Name: ROEL LUCILLERYAN : 1935 (89y 1m) Study Date: 11/02/2024 9:53:15 AM Gender: F Speech Writer: Location: [facility] Ref Provider: JEANIE GASCA Quality: [...] By: Los Escobar MD 11/02/2024 6:29:32 PM WOOD WEB WEAVING MACHINE OPERATOR Procedure Note Los Escobar MD - 11/02/2024 [facility] [address] [place] [id number] Carotid Duplex Ultrasound Report Patient Name: LUCILLE SEVILLA MA : 1935 (89y 1m) Study Date: 11/02/2024 9:53:15 AM Gender: F Speech Writer: Location: [facility] Ref Provider: JEANIE GASCA Quality: Adequate Order [...] 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 2. 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 Use antibiotics, IV Fluids, and medical treatment unless specifically selected below: No intubation * Full Code Date Activated Date Inactivated Comments 12/03/2024 12:24 PM 12/04/2024 1:49 PM * LIMITED - No CPR Date Activated Date Inactivated Comments 09/07/2024 9:02 [...] intubationNo cardioversionNo vasopressorsNo internal / external pacemaker Care Teams District Court Reporter Relationship Specialty Start Date End Date Irving Montes MD PCP - General Family Medicine 04/27/18
--- OUTSIDE RECORDS SUMMARY | 2024-12-28 12:59 | XMS_ITS | Clinical Summary ---
Author Organization 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
--- OUTSIDE RECORDS SUMMARY | 2024-12-28 12:59 | XMS_ITS | Encounter Summary ---
Author Organization [facility] Address 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
--- OUTSIDE RECORDS SUMMARY | 2024-12-28 12:59 | XMS_ITS | Referral Summary ---
Author Organization [facility] [address] Address [address] [place] [address] Care Team Providers Care Family Service Counselor Name Role Phone Irving Montes MD Primary Care Provider [phone] Encounters Date Type Department Care Team Description 12/03/2024 9:58 AM CDT - 12/10/2024 5:42 PM CDT Hospital Encounter [facility] [address] Med Surg [address] [place] [id number] Jaimie Romero MD Ali, Md Shahin, MD Paruchuri, Tharun, MD Singh, Supriya, MD Lopez, Sean Encinas MD Left leg cellulitis (Primary Dx); COLIN (acute kidney injury) [N17.9]; Chronic heart failure with preserved ejection fraction (HCC) [I50.32]; Depression, unspecified depression type [F32.A]; Hyperkalemia [E87.5]; Primary hypertension [I10]; Acute kidney injury superimposed on chronic kidney disease Discharge Disposition: Discharge to [facility] 11/19/2024 Orders Only [facility] Vascular and Vein Surgery [address] [place] [address] [place] [phone] Los Escobar MD Occlusion of right carotid artery (Primary Dx); Stenosis of left carotid artery 11/18/2024 11:00 AM CDT Office Visit [facility] Vascular [facility] Vein Surgery [address] [place] [address] [address] [place] [phone] Polina Santiago PA Occlusion and stenosis of bilateral carotid arteries (Primary Dx); Mixed hyperlipidemia; Primary hypertension 11/03/2024 Results Follow-Up [facility] Cardiology at [address] [place] [address] Jeanie Gasca MD 11/02/2024 10:00 AM TRAVEL AGENCY MANAGER Ancillary Procedure [facility] Vascular and Vein Surgery at [address] [place] [address] Bilateral carotid artery stenosis 10/28/2024 2:00 PM TRAVEL AGENCY MANAGER Office Visit [facility] Cardiology [address] [facility] [address] [place] [address] Jeanie Gasca MD Chronic heart failure with preserved ejection fraction (HCC) (Primary Dx); 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, 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, with heart failure (HCC); 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; Mixed hyperlipidemia; Bilateral carotid artery stenosis 10/26/2024 Home Care Visit [facility] [address] [address] [place] [address] Amanda Clark RN SN TRIAGE ENCOUNTER 10/22/2024 8:30 AM TRAVEL AGENCY MANAGER Home Care Visit [facility] [address] [address] [place] [address] Christine Sherman, PT PT OASIS DISCHARGE 10/20/2024 9:00 AM TRAVEL AGENCY MANAGER Home Care Visit [facility] [address] [address] [place] [address] Chelo Davis RN SN DISCIPLINE DISCHARGE 10/14/2024 12:45 PM TRAVEL AGENCY MANAGER Orders Only [facility] Medical Office Building 2 Wound Care [address] [facility] [address] [place] [address] 10/13/2024 8:30 AM TRAVEL AGENCY MANAGER Home Care Visit [facility] [address] [address] [place] [address] Christine Sherman, PT PT HOME VISIT 10/11/2024 8:30 AM TRAVEL AGENCY MANAGER Home Care Visit [address] [place] [address] Christine Sherman, PT PT REASSESSMENT 10/07/2024 Home Care Visit [address] [place] [address] Irene Acosta, OT TELEPHONE ENCOUNTER 10/07/2024 Home Care Visit [address] [place] [address] Irene Acosta, OT TELEPHONE ENCOUNTER 10/06/2024 8:00 AM TRAVEL AGENCY MANAGER Home Care Visit [address] [place] [address] Hermila Norton LPN SN HOME VISIT 10/04/2024 8:30 AM TRAVEL AGENCY MANAGER Home Care Visit [address] [place] [address] Christine Sherman, PT PT HOME VISIT 10/01/2024 9:00 AM TRAVEL AGENCY MANAGER Home Care Visit [address] [place] [address] Christine Sherman, PT PT HOME VISIT 10/01/2024 8:00 AM TRAVEL AGENCY MANAGER Home Care Visit [address] [place] [address] Chelo Davis RN SN HOME VISIT 09/30/2024 Home Care Visit [address] [place] [address] Irene Acosta, OT TELEPHONE ENCOUNTER from Last 3 Months Allergies Active Allergy [...] 1 tablet (75 mcg total) by mouth manager money before breakfast 11/21/19 21 Active ondansetron (ZOFRAN) [...] by mouth 3 (three) times a day. [id number] Indications: anxious 2024 Discontinued(A lternate therapy) ALPRAZolam (XANAX) 1 mg tabletIndicati ons:Anxiety with Depression Take 1 mg by mouth 3 (three) times a day. RX: [id number] C4 Indications: anxiousness associated with depression 09/28/192024 Discontinued traMADoL (ULTRAM) 50 mg tablet Take [...] 07/13/2020 Assessment & Plan (11/09/2020 6:57 PM TRAVEL AGENCY MANAGER): Impression: Chronic kidney disease which is followed by outside institution fry cook. Patient wishes to have 2nd opinion and to combine care at our hospital. Plan: Referral to [facility] for further evaluation of her chronic kidney disease. Chronic eczematous otitis externa of both ears 0 03/30/2020 Other otitis externa, unspecified ear 03/30/2020 Hypertension 02/19/2019 Overview (02/19/2019): Hypertension Assessment & Plan (11/09/2020 6:55 PM TRAVEL AGENCY MANAGER): Impression: Stable chronic hypertension. Plan: Medications reviewed and recommend continuing daily antihypertensive regimen as directed by patient's primary care physician. Assessment & Plan (02/19/2019 1:16 PM CDT): Stable hypertension control with use of medications. Plan: Continue management as per primary care provider. Bilateral lower extremity edema 02/19/2019 Assessment & Plan (11/09/2020 6:56 PM TRAVEL AGENCY MANAGER): Impression: Chronic bilateral lower extremity edema that [...] stenosis of lumbar region 02/18/2019 Atherosclerosis of rosebud ar sandra of both lower extremities with intermittent claudication 08/24/2018 Pain in both lower extremities 08/18/2018 Stenosis of carotid artery 07/22/2016 Overview (12/13/2016): Carotid stenosis, asymptomatic, right Assessment & Plan (11/09/2020 6:59 PM TRAVEL AGENCY MANAGER): Impression: Stable asymptomatic bilateral internal carotid artery [...] materials from doctor or pharmacy Never 10/22/2024 [facility] Utilities Answer Date Recorded In the past 12 months has e [employer], gas, oil, or water [employer] threatened to shut off services in your [...] often do you attend chur ch or jehovah's witness services? Never 12/03/2024 Do you belong to any clubs o r organizations such as worship groups, unions, fraternal or athletic groups, or [...] place to sleep or slept in a skilled nursing (including now)? No 05/09/2023 PHQ-9 Answer Date [...] any time in the past 12 m [facility], were you homeless or living in a skilled nursing (including now)? No 12/03/2024 Personal Safety Answer Date Recorded Have you ever been in or are you currently in a harmful physical or emotional relationship or is someone making you feel afraid or unsafe? Denies 12/03/2024 Comments No Sex and Gender Information Value Date Recorded Sex Assigned at Not on file Legal Sex Female 11:52 PM TRAVEL AGENCY MANAGER Gender Identity Not on file Sexual [...] kg (241 lb 10 oz) 12/03/2024 2:10 PM CDT Height 167.6 cm (5' 5.98 ) 12/03/2024 2:10 PM CD T Body Mass Index 39.02 12/03/2024 2:10 PM CDT Plan of Treatment Not on file [...] Read Routine (OP Routine) 11/02/2024 11:22 AM TRAVEL AGENCY MANAGER Bilateral carotid artery stenosis ECG 12-LEAD Routine 10/28/2024 2:38 PM TRAVEL AGENCY MANAGER Chronic heart failure with preserved ejection fraction (HCC) Atherosclerosis of rosebud artery of both lower extremities with intermittent [...] was last reviewed 2021. Testing performed by: [address] [address] Blood 12/10/2024 3:13 AM CDT 12/10/2024 3:18 AM CDT us Nika Calle NP LAB BLOOD ORDERABLES Final Re sult [facility] [address] [facility] Department [place] [address] * (ABNORMAL) Differential, auto (12/10/2024 3:13 AM CDT) Neutrophil abs 6.87(H) 1.50 - 6.50 K/cumm Comment:Testing performed by : [address] [place]., [address] Imm gran abs 0.12(H) 0.00 - 0.10 K/cumm [facility] Comment:Testing performed by : [address] [address] Lymphocyte abs 1.69 0.80 - 3.30 K/cumm [facility] Comment:Testing performed by : [address] [address] Monocyte abs 0.90(H) 0.20 - 0.80 K/cumm [facility] Comment:Testing performed by : [address] [address] Eosinophil abs 0.18 0.00 - 0.50 K/cumm [facility] Comment:Testing performed by : [address] [address] Basophil abs 0.05 0.00 - 0.10 K/cumm [facility] Comment:Testing performed by : [address] [address] Neutrophil pct 70.1 % [facility] Comment: Interpretive Data Percent cell count reference ranges are not reported, since discordance with absolute values may lead to misinterpretation of CBC data. Current Interpretive Data was last revised on 2017. Testing performed by: [address] [address] Imm gran pct 1.2 % [facility] Comment: Interpretive Data Percent cell count reference ranges are not reported, since discordance with absolute values may lead to misinterpretation of CBC data. Current Interpretive Data was last revised on 2017. Testing performed by: [address] [address] Lymphocyte pct 17.2 % [facility] Comment: Interpretive Data Percent cell count reference ranges are not reported, since discordance with absolute values may lead to misinterpretation of CBC data. Current Interpretive Data was last revised on 2017. Testing performed by: [address] [address] Monocyte pct 9.2 % [facility] Comment: Interpretive Data Percent cell count reference ranges are not reported, since discordance with absolute values may lead to misinterpretation of CBC data. Current Interpretive Data was last revised on 2017. Testing performed by: [address] [address] Eosinophil pct 1.8 % [facility] Comment: Interpretive Data Percent cell count reference ranges are not reported, since discordance with absolute values may lead to misinterpretation of CBC data. Current Interpretive Data was last revised on 2017. Testing performed by: [address] [address] Basophil pct 0.5 % [facility] Comment: Interpretive Data Percent cell count reference ranges are not reported, since discordance with absolute values may lead to misinterpretation of CBC data. Current Interpretive Data was last revised on 2017. Testing performed by: [address] [address] Blood 12/10/2024 3:13 AM CDT 12/10/2024 3:18 AM CDT Nika Calle NP LAB BLOOD ORDERABLES Final Re sult [facility] [address] [facility] Department [place] [address] * (ABNORMAL) CBC with auto differential (12/10/2024 3:13 AM CDT) WBC 9.81 3.80 - 9.90 K/cumm Comment:Testing performed by : [address] [address] Hgb 9.9(L) 11.9 - 15.5 g/dL [facility] Comment:Testing performed by : [address] [address] Hct 29.6(L) 35.6 - 45.5 % [facility] Comment:Testing performed by : [address] [address] Plt 397 150 - 400 K/cumm [facility] Comment:Testing performed by : [address] [address] MPV 8.5(L) 9.1 - 12.3 fL [facility] Comment:Testing performed by : [address] [address] RBC 3.47(L) 3.90 - 5.20 M/cumm [facility] Comment:Testing performed by : [address] [address] MCV 85.3 81.3 - 96.4 fL [facility] Comment:Testing performed by : [address] [address] MCH 28.5 27.1 - 33.3 pg [facility] Comment:Testing performed by : [address] [address] MCHC 33.4 32.3 - 35.7 g/dL [facility] Comment:Testing performed by : [address] [address] RDW CV 14.5 11.1 - 14.9 % [facility] Comment:Testing performed by : [address] [address] RDW SD 44.8 35.7 - 48.1 fL [facility] Comment:Testing performed by : [address] [address] NRBC abs 0.00 0.00 - 0.01 K/cumm [facility] Comment:Testing performed by : [address] [address] Blood 12/10/2024 3:13 AM CDT 12/10/2024 3:18 AM CDT us Nika Calle NP LAB BLOOD ORDERABLES Final Re sult [facility] [facility] Department [place] [address] * (ABNORMAL) Basic metabolic panel (12/10/2024 3:13 AM CDT) Sodium 133(L) 135 - 145 mmol/L Comment:Testing performed by : [address] [address] Potassium, pl 3.9 3.3 - 4.9 mmol/L [facility] Comment:Testing performed by : [address] [address] Chloride 95(L) 97 - 110 mmol/L [facility] Comment:Testing performed by : [address] [address] CO2 27 22 - 32 mmol/L [facility] Comment:Testing performed by : [address] [address] Anion gap 11 2 - 15 mmol/L [facility] Comment:Testing performed by : [address] [address] BUN 25 6 - 25 mg/dL [facility] Comment:Testing performed by : [address] [address] Creatinine 1.57(H) 0.60 - 1.10 mg/dL [facility] Comment:Testing performed by : [address] [address] Glucose 116 70 - 199 mg/dL [facility] Comment: Interpretive Data Fasting glucose >/= 126 [...] was last revised 2022. Testing performed by: [address] [address] Calcium 9.5 8.5 - 10.3 mg/dL [facility] Comment:Testing performed by : [address] [address] Blood 12/10/2024 3:13 AM CDT 12/10/2024 3:18 AM CDT Nika Calle NP LAB BLOOD ORDERABLES Final Re sult [facility] [address] [facility] Department [place] [address] * XR Tibia Fibula Left 2 Views [...] Teddy Mei M.D. KR: PHAM Report ID: [id number] Reading Location: [id number] Procedure Note Teddy Mei MD - 12/09/2024 [...] Teddy Mei M.D. KR: PHAM Report ID: [id number] Reading Location: [id number] us Sean Ngo MD IMG XR PROCEDURES Final [...] was last reviewed 2021. Testing performed by: [address] [address] Blood 12/09/2024 4:02 AM CDT 12/09/2024 4:50 AM CDT us Nika Calle NP LAB BLOOD ORDERABLES Final Re sult [facility] [address] [facility] Department [place] [address] * (ABNORMAL) Differential, auto (12/09/2024 4:02 AM CDT) Pathologist [facility] Neutrophil abs 6.59(H) 1.50 - 6.50 K/cumm Comment:Testing performed by : [address] [address] Imm gran abs 0.19(H) 0.00 - 0.10 K/cumm [facility] Comment:Testing performed by : [address] [address] Lymphocyte abs 1.70 0.80 - 3.30 K/cumm [facility] Comment:Testing performed by : [address], [place]., [address] Monocyte abs 0.92(H) 0.20 - 0.80 K/cumm [facility] Comment:Testing performed by : [address], [place]., [address] Eosinophil abs 0.25 0.00 - 0.50 K/cumm [facility] Comment:Testing performed by : [address], [place]., [address] Basophil abs 0.07 0.00 - 0.10 K/cumm [facility] Comment:Testing performed by : [address] [address] Neutrophil pct 67.7 % [facility] Comment: Interpretive Data Percent cell count reference ranges are not reported, since discordance with absolute values may lead to misinterpretation of CBC data. Current Interpretive Data was last revised on 2017. Testing performed by: [address] [address] Imm gran pct 2.0 % [facility] Comment: Interpretive Data Percent cell count reference ranges are not reported, since discordance with absolute values may lead to misinterpretation of CBC data. Current Interpretive Data was last revised on 2017. Testing performed by: [address] [address] Lymphocyte pct 17.5 % [facility] Comment: Interpretive Data Percent cell count reference ranges are not reported, since discordance with absolute values may lead to misinterpretation of CBC data. Current Interpretive Data was last revised on 2017. Testing performed by: [address] [address] Monocyte pct 9.5 % [facility] Comment: Interpretive Data Percent cell count reference ranges are not reported, since discordance with absolute values may lead to misinterpretation of CBC data. Current Interpretive Data was last revised on 2017. Testing performed by: [address] [address] Eosinophil pct 2.6 % [facility] Comment: Interpretive Data Percent cell count reference ranges are not reported, since discordance with absolute values may lead to misinterpretation of CBC data. Current Interpretive Data was last revised on 2017. Testing performed by: [address] [address] Basophil pct 0.7 % [facility] Comment: Interpretive Data Percent cell count reference ranges are not reported, since discordance with absolute values may lead to misinterpretation of CBC data. Current Interpretive Data was last revised on 2017. Testing performed by: [address] [address] Blood 12/09/2024 4:02 AM CDT 12/09/2024 4:49 AM CDT us Nika Calle NP LAB BLOOD ORDERABLES Final Re sult [facility] Department [place] [address] * (ABNORMAL) CBC with auto differential (12/09/2024 4:02 AM CDT) WBC 9.72 3.80 - 9.90 K/cumm Comment:Testing performed by : [address] [address] Hgb 10.1(L) 11.9 - 15.5 g/dL [facility] Comment:Testing performed by : [address] [address] Hct 30.9(L) 35.6 - 45.5 % [facility] Comment:Testing performed by : [address] [address] Plt 442(H) 150 - 400 K/cumm [facility] Comment:Testing performed by : [address] [address] MPV 9.3 9.1 - 12.3 fL [facility] Comment:Testing performed by : [address] [address] RBC 3.58(L) 3.90 - 5.20 M/cumm [facility] Comment:Testing performed by : [address] [address] MCV 86.3 81.3 - 96.4 fL [facility] Comment:Testing performed by : [address] [address] MCH 28.2 27.1 - 33.3 pg [facility] Comment:Testing performed by : [address] [address] MCHC 32.7 32.3 - 35.7 g/dL [facility] Comment:Testing performed by : [address] [address] RDW CV 14.6 11.1 - 14.9 % [facility] Comment:Testing performed by : [address] [address] RDW SD 45.8 35.7 - 48.1 fL [facility] Comment:Testing performed by : [address] [address] NRBC abs 0.00 0.00 - 0.01 K/cumm [facility] Comment:Testing performed by : [address] [address] Blood 12/09/2024 4:0 2 AM CDT 12/09/2024 4:49 AM CDT us Nika Calle NP LAB BLOOD ORDERABLES Final Re sult [facility] [address] [facility] Department of Laboratories [place], [place] [address] * (ABNORMAL) Basic metabolic panel (12/09/2024 4:02 AM CDT) Sodium 135 135 - 145 mmol/L Comment:Testing performed by : [address] [address] Potassium, pl 3.8 3.3 - 4.9 mmol/L [facility] Comment:Testing performed by : [address] [address] Chloride 95(L) 97 - 110 mmol/L [facility] Comment:Testing performed by : [address] [address] CO2 28 22 - 32 mmol/L [facility] Comment:Testing performed by : [address] [address] Anion gap 12 2 - 15 mmol/L [facility] Comment:Testing performed by : [address] [address] BUN 28(H) 6 - 25 mg/dL [facility] Comment:Testing performed by : [address] [address] Creatinine 1.81(H) 0.60 - 1.10 mg/dL [facility] Comment:Testing performed by : [address] [address] Glucose 105 70 - 199 mg/dL [facility] [...] was last revised 2022. Testing performed by: [address] [address] Calcium 9.6 8.5 - 10.3 mg/dL [facility] Comment:Testing performed by : [address] [address] Blood 12/09/2024 4:02 AM CDT 12/09/2024 4:49 AM CDT us Nika Calle NP LAB BLOOD ORDERABLES Final Re sult [facility] [address] [facility] Department [place] [address] * (ABNORMAL) eGFR (12/08/2024 4:44 [...] was last reviewed 2021. Testing performed by: [address] [address] Blood 12/08/2024 4:44 AM CDT 12/08/2024 5:25 AM CDT Nika Calle NP LAB BLOOD ORDERABLES Final Re sult [facility] [address] [facility] Department [place] [address] * (ABNORMAL) Differential, auto (12/08/2024 4:44 AM CDT) Pathologist [facility] Neutrophil abs 6.92(H) 1.50 - 6.50 K/cumm Comment:Testing performed by : [address] [address] Imm gran abs 0.24(H) 0.00 - 0.10 K/cumm [facility] Comment:Testing performed by : [address] [address] Lymphocyte abs 1.61 0.80 - 3.30 K/cumm [facility] Comment:Testing performed by : [address] [address] Monocyte abs 0.99(H) 0.20 - 0.80 K/cumm [facility] Comment:Testing performed by : [address] [address] Eosinophil abs 0.20 0.00 - 0.50 K/cumm [facility] Comment:Testing performed by : [address], [place]., [address] Basophil abs 0.06 0.00 - 0.10 K/cumm [facility] Comment:Testing performed by : [address] [address] Neutrophil pct 69.0 % [facility] Comment: Interpretive Data Percent cell count reference ranges are not reported, since discordance with absolute values may lead to misinterpretation of CBC data. Current Interpretive Data was last revised on 2017. Testing performed by: [address] [address] Imm gran pct 2.4 % [facility] Comment: Interpretive Data Percent cell count reference ranges are not reported, since discordance with absolute values may lead to misinterpretation of CBC data. Current Interpretive Data was last revised on 2017. Testing performed by: [address] [address] Lymphocyte pct 16.1 % [facility] Comment: Interpretive Data Percent cell count reference ranges are not reported, since discordance with absolute values may lead to misinterpretation of CBC data. Current Interpretive Data was last revised on 2017. Testing performed by: [address] [address] Monocyte pct 9.9 % [facility] Comment: Interpretive Data Percent cell count reference ranges are not reported, since discordance with absolute values may lead to misinterpretation of CBC data. Current Interpretive Data was last revised on 2017. Testing performed by: [address] [address] Eosinophil pct 2.0 % [facility] Comment: Interpretive Data Percent cell count reference ranges are not reported, since discordance with absolute values may lead to misinterpretation of CBC data. Current Interpretive Data was last revised on 2017. Testing performed by: [address] [address] Basophil pct 0.6 % [facility] Comment: Interpretive Data Percent cell count reference ranges are not reported, since discordance with absolute values may lead to misinterpretation of CBC data. Current Interpretive Data was last revised on 2017. Testing performed by: [address] [address] Blood 12/08/2024 4:44 AM CDT 12/08/2024 5:32 AM CDT us Nika Calle NP LAB BLOOD ORDERABLES Final Re sult [facility] Department [place] [address] * (ABNORMAL) CBC with auto differential (12/08/2024 4:44 AM CDT) WBC 10.02(H) 3.80 - 9.90 K/cumm Comment:Testing performed by : [address] [address] Hgb 10.8(L) 11.9 - 15.5 g/dL [facility] Comment:Testing performed by : [address] [address] Hct 32.5(L) 35.6 - 45.5 % [facility] Comment:Testing performed by : [address] [address] Plt 466(H) 150 - 400 K/cumm [facility] Comment:Testing performed by : [address] [address] MPV 9.0(L) 9.1 - 12.3 fL [facility] Comment:Testing performed by : [address] [address] RBC 3.78(L) 3.90 - 5.20 M/cumm [facility] Comment:Testing performed by : [address] [address] MCV 86.0 81.3 - 96.4 fL [facility] Comment:Testing performed by : [address] [address] MCH 28.6 27.1 - 33.3 pg [facility] Comment:Testing performed by : [address] [address] MCHC 33.2 32.3 - 35.7 g/dL [facility] Comment:Testing performed by : [address] [address] RDW CV 14.7 11.1 - 14.9 % [facility] Comment:Testing performed by : [address] [address] RDW SD 46.1 35.7 - 48.1 fL [facility] Comment:Testing performed by : [address] [address] NRBC abs 0.00 0.00 - 0.01 K/cumm HANNAH LEA Comment:Testing performed by : [address] [address] Blood 12/08/2024 4:44 AM CDT 12/08/2024 5:32 AM CDT Nika Calle NP LAB BLOOD ORDERABLES Final Re sult HANNAH [facility] [facility] Department of Laboratories [place], [place] [id number] * (ABNORMAL) Basic metabolic panel (12/08/2024 4:44 AM CDT) Sodium 135 135 - 145 mmol/L Comment:Testing performed by : [address] [address] Potassium, pl 4.0 3.3 - 4.9 mmol/L HANNA[facility] LEA Comment:Testing performed by : [address] [address] Chloride 95(L) 97 - 110 mmol/L HANNAH LEA Comment:Testing performed by : [address] [address] CO2 28 22 - 32 mmol/L HANNAH Comment:Testing performed by : [address] [address] Anion gap 12 2 - 15 mmol/L HANNAH Comment:Testing performed by : [address] [address] BUN 26(H) 6 - 25 mg/dL HANNAH Comment:Testing performed by : [address] [address] Creatinine 1.83(H) 0.60 - 1.10 mg/dL HANNAH Comment:Testing performed by : [address] [address] Glucose 113 70 - 199 mg/dL HANNAH [...] was last revised 2022. Testing performed by: [address] [address] Calcium 9.6 8.5 - 10.3 mg/dL HANNAH Comment:Testing performed by : [address] [address] Blood 12/08/2024 4:44 AM CDT 12/08/2024 5:25 AM CDT us Nika Calle NP LAB BLOOD ORDERABLES Final Re sult HANNAH LEA [address] [facility] Department of Laboratories [place], [place] [id number] * (ABNORMAL) eGFR (12/07/2024 4:30 AM CDT) [...] was last reviewed 2021. Testing performed by: [address] [address] Blood 12/07/2024 4:30 AM CDT 12/07/2024 5:09 AM CDT us Nika Calle NP LAB BLOOD ORDERABLES Final Re sult [facility]ANNAH LEA [address] [facility] Department [place] [address] * (ABNORMAL) Differential, auto (12/07/2024 4:30 AM CDT) Neutrophil abs 7.8(H) 1.5 - 6.5 K/cumm Comment:Testing performed by : [address] [address] Imm gran abs 0.2(H) 0.0 - 0.1 K/cumm HANNAH LEA Comment:Testing performed by : [address] [address] Lymphocyte abs 1.5 0.8 - 3.3 K/cumm HANNAH LEA Comment:Testing performed by : [address] [address] Monocyte abs 1.1(H) 0.2 - 0.8 K/cumm [facility] Comment:Testing performed by : [address] [address] Eosinophil abs 0.4 0.0 - 0.5 K/cumm [facility] Comment:Testing performed by : [address], [place]., [address] Basophil abs 0.1 0.0 - 0.1 K/cumm [facility] Comment:Testing performed by : [address] [address] Neutrophil pct 71.0 % [facility] Comment: Interpretive Data Percent cell count reference ranges are not reported, since discordance with absolute values may lead to misinterpretation of CBC data. Current Interpretive Data was last revised on 2017. Testing performed by: [address] [address] Imm gran pct 2.0 % [facility] Comment: Interpretive Data Percent cell count reference ranges are not reported, since discordance with absolute values may lead to misinterpretation of CBC data. Current Interpretive Data was last revised on 2017. Testing performed by: [address] [address] Lymphocyte pct 13.6 % [facility] Comment: Interpretive Data Percent cell count reference ranges are not reported, since discordance with absolute values may lead to misinterpretation of CBC data. Current Interpretive Data was last revised on 2017. Testing performed by: [address] [address] Monocyte pct 9.6 % [facility] Comment: Interpretive Data Percent cell count reference ranges are not reported, since discordance with absolute values may lead to misinterpretation of CBC data. Current Interpretive Data was last revised on 2017. Testing performed by: [address] [address] Eosinophil pct 3.2 % [facility] Comment: Interpretive Data Percent cell count reference ranges are not reported, since discordance with absolute values may lead to misinterpretation of CBC data. Current Interpretive Data was last revised on 2017. Testing performed by: [address] [address] Basophil pct 0.6 % [facility]NA[facility] LEA Comment: Interpretive Data Percent cell count reference ranges are not reported, since discordance with absolute values may lead to misinterpretation of CBC data. Current Interpretive Data was last revised on 2017. Testing performed by: [address] [address] Blood 12/07/2024 4:30 AM CDT 12/07/2024 5:18 AM CDT us Nika Calle NP LAB BLOOD ORDERABLES Final Re sult HANNAH [address] [facility] Department [place] [address] * (ABNORMAL) CBC with auto differential (12/07/2024 4:30 AM CDT) WBC 11.0(H) 3.8 - 9.9 K/cumm Comment:Testing performed by : [address] [address] Hgb 10.4(L) 11.9 - 15.5 g/dL HANNAH Comment:Testing performed by : [address] [address] Hct 32.4(L) 35.6 - 45.5 % HANNAH Comment:Testing performed by : [address] [address] Plt 440(H) 150 - 400 K/cumm HANNAH Comment:Testing performed by : [address] [address] MPV 9.5 9.1 - 12.3 fL [facility]ANNAH LEA Comment:Testing performed by : [address] [address] RBC 3.75(L) 3.90 - 5.20 M/cumm HANNAH LEA Comment:Testing performed by : [address] [address] MCV 86.4 81.3 - 96.4 fL [facility]NA[facility] LEA Comment:Testing performed by : [address] [place] [address] MCH 27.7 27.1 - 33.3 pg [facility]ANNAH LEA Comment:Testing performed by : [address] [address] MCHC 32.1(L) 32.3 - 35.7 g/dL [facility]NA[facility] LEA Comment:Testing performed by : [address] [address] RDW CV 14.7 11.1 - 14.9 % [facility]NANA[facility] LEA Comment:Testing performed by : [address] [address] RDW SD 46.4 35.7 - 48.1 fL [facility]NA[facility] LEA Comment:Testing performed by : [address] [address] NRBC abs 0.00 0.00 - 0.01 K/cumm HANNA[facility] LEA Comment:Testing performed by : [address] [address] Blood 12/07/2024 4:30 AM CDT 12/07/2024 5:18 AM CDT us Nika Calle NP LAB BLOOD ORDERABLES Final Re sult HANNAH [address] [facility] Department [place] [address] * (ABNORMAL) Basic metabolic panel (12/07/2024 4:30 AM CDT) Sodium 138 135 - 145 mmol/L Comment:Testing performed by : [address] [address] Potassium, pl 4.3 3.3 - 4.9 mmol/L [facility]ANNA[facility] LEA Comment:Testing performed by : [address] [address] Chloride 97 97 - 110 mmol/L [facility]ANNA[facility] LEA Comment:Testing performed by : [address] [address] CO2 28 22 - 32 mmol/L [facility]NA[facility] LEA Comment:Testing performed by : [address] [address] Anion gap 13 2 - 15 mmol/L HANNAH Comment:Testing performed by : [address] [address] BUN 24 6 - 25 mg/dL HANNAH Comment:Testing performed by : [address] [address] Creatinine 1.49(H) 0.60 - 1.10 mg/dL HANNAH Comment:Testing performed by : [address] [address] Glucose 114 70 - 199 mg/dL HANNAH [...] was last revised 2022. Testing performed by: [address] [address] Calcium 9.8 8.5 - 10.3 mg/dL HANNAH Comment:Testing performed by : [address] [address] Blood 12/07/2024 4:30 AM CDT 12/07/2024 5:09 AM CDT us Nika Calle NP LAB BLOOD ORDERABLES Final Re sult HANNAH [address] [facility] Department [place] [address] * (ABNORMAL) eGFR (12/06/2024 5:07 AM CDT) [...] was last reviewed 2021. Testing performed by: [address] [address] Blood 12/06/2024 5:07 AM CDT 12/06/2024 5:49 AM CDT us Nika Calle NP LAB BLOOD ORDERABLES Final Re sult HANNAH [address] [facility] Department [place] [address] * (ABNORMAL) Differential, auto (12/06/2024 5:07 AM CDT) Neutrophil abs 6.1 1.5 - 6.5 K/cumm Comment:Testing performed by : [address] [address] Imm gran abs 0.2(H) 0.0 - 0.1 K/cumm HANNAH LEA Comment:Testing performed by : [address] [address] Lymphocyte abs 1.6 0.8 - 3.3 K/cumm HANNAH Comment:Testing performed by : [address] [address] Monocyte abs 0.9(H) 0.2 - 0.8 K/cumm HANNAH Comment:Testing performed by : [address] [address] Eosinophil abs 0.4 0.0 - 0.5 K/cumm [facility] Comment:Testing performed by : [address] [address] Basophil abs 0.1 0.0 - 0.1 K/cumm [facility] [place] Comment:Testing performed by : [address] [address] Neutrophil pct 65.2 % [facility] Comment: Interpretive Data Percent cell count reference ranges are not reported, since discordance with absolute values may lead to misinterpretation of CBC data. Current Interpretive Data was last revised on 2017. Testing performed by: [address] [address] Imm gran pct 2.4 % [facility] Comment: Interpretive Data Percent cell count reference ranges are not reported, since discordance with absolute values may lead to misinterpretation of CBC data. Current Interpretive Data was last revised on 2017. Testing performed by: [address] [address] Lymphocyte pct 17.4 % [facility] Comment: Interpretive Data Percent cell count reference ranges are not reported, since discordance with absolute values may lead to misinterpretation of CBC data. Current Interpretive Data was last revised on 2017. Testing performed by: [address] [address] Monocyte pct 9.9 % [facility] Comment: Interpretive Data Percent cell count reference ranges are not reported, since discordance with absolute values may lead to misinterpretation of CBC data. Current Interpretive Data was last revised on 2017. Testing performed by: [address] [address] Eosinophil pct 4.5 % [facility] Comment: Interpretive Data Percent cell count reference ranges are not reported, since discordance with absolute values may lead to misinterpretation of CBC data. Current Interpretive Data was last revised on 2017. Testing performed by: [address] [address] Basophil pct 0.6 % [facility] [place] Comment: Interpretive Data Percent cell count reference ranges are not reported, since discordance with absolute values may lead to misinterpretation of CBC data. Current Interpretive Data was last revised on 2017. Testing performed by: [address] [address] Blood 12/06/2024 5:07 AM CDT 12/06/2024 5:49 AM CDT Nika Calle NP LAB BLOOD ORDERABLES Final Re sult HANNAH [address] [facility] Department [place] [address] * (ABNORMAL) CBC with auto differential (12/06/2024 5:07 AM CDT) WBC 9.3 3.8 - 9.9 K/cumm Comment:Testing performed by : [address] [address] Hgb 9.7(L) 11.9 - 15.5 g/dL HANNAH Comment:Testing performed by : [address] [address] Hct 30.0(L) 35.6 - 45.5 % HANNAH Comment:Testing performed by : [address] [address] Plt 410(H) 150 - 400 K/cumm HANNAH Comment:Testing performed by : [address] [address] MPV 9.1 9.1 - 12.3 fL HANNAH Comment:Testing performed by : [address] [address] RBC 3.43(L) 3.90 - 5.20 M/cumm HANNAH Comment:Testing performed by : [address] [address] MCV 87.5 81.3 - 96.4 fL [facility]ANNAH LEA Comment:Testing performed by : [address] [address] MCH 28.3 27.1 - 33.3 pg [facility]ANNAH LEA Comment:Testing performed by : [address] [address] MCHC 32.3 32.3 - 35.7 g/dL [facility]ANNAH LEA Comment:Testing performed by : [address] [address] RDW CV 15.0(H) 11.1 - 14.9 % [facility]NAH LEA Comment:Testing performed by : [address] [address] RDW SD 47.5 35.7 - 48.1 fL [facility]NAH LEA Comment:Testing performed by : [address] [address] NRBC abs 0.00 0.00 - 0.01 K/cumm HANNAH LEA Comment:Testing performed by : [address] [address] Blood 12/06/2024 5:07 AM CDT 12/06/2024 5:49 AM CDT Nika Calle NP LAB BLOOD ORDERABLES Final Re sult HANNAH [address] [facility] Department of Laboratories [place], [place] [id number] * (ABNORMAL) Basic metabolic panel (12/06/2024 5:07 AM CDT) Sodium 137 135 - 145 mmol/L Comment:Testing performed by : [address] [address] Potassium, pl 4.4 3.3 - 4.9 mmol/L HANNAH LEA Comment:Testing performed by : [address] [address] Chloride 97 97 - 110 mmol/L [facility]NAH LEA Comment:Testing performed by : [address] [address] CO2 30 22 - 32 mmol/L HANNAH LEA Comment:Testing performed by : [address] [address] Anion gap 10 2 - 15 mmol/L HANNAH LEA Comment:Testing performed by : [address] [place]., [address] BUN 22 6 - 25 mg/dL HANNAH Comment:Testing performed by : [address] [address] Creatinine 1.50(H) 0.60 - 1.10 mg/dL HANNAH Comment:Testing performed by : [address] [address] Glucose 108 70 - 199 mg/dL HANNAH [...] was last revised 2022. Testing performed by: [address] [address] Calcium 9.1 8.5 - 10.3 mg/dL HANNAH Comment:Testing performed by : [address] [address] Blood 12/06/2024 5:07 AM CDT 12/06/2024 5:49 AM CDT Nika Calle NP LAB BLOOD ORDERABLES Final Re sult [facility] [address] [facility] Department [place] [address] * (ABNORMAL) eGFR (12/05/2024 4:58 [...] was last reviewed 2021. Testing performed by: [address] [address] Blood 12/05/2024 4:58 AM CDT 12/05/2024 5:12 AM CDT us Nika Calle NP LAB BLOOD ORDERABLES Final Re sult HANNAH [facility] Department [place] [address] * (ABNORMAL) Differential, auto (12/05/2024 4:58 AM CDT) Neutrophil abs 7.3(H) 1.5 - 6.5 K/cumm Comment:Testing performed by : [address] [address] Imm gran abs 0.2(H) 0.0 - 0.1 K/cumm HANNAH Comment:Testing performed by : [address] [address] Lymphocyte abs 1.3 0.8 - 3.3 K/cumm HANNAH Comment:Testing performed by : [address] [address] Monocyte abs 1.0(H) 0.2 - 0.8 K/cumm HANNAH Comment:Testing performed by : [address] [address] Eosinophil abs 0.4 0.0 - 0.5 K/cumm HANNAH Comment:Testing performed by : [address] [address] Basophil abs 0.0 0.0 - 0.1 K/cumm HANNAH Comment:Testing performed by : [address] [address] Neutrophil pct 71.4 % [facility] Comment: Interpretive Data Percent cell count reference ranges are not reported, since discordance with absolute values may lead to misinterpretation of CBC data. Current Interpretive Data was last revised on 2017. Testing performed by: [address] [address] Imm gran pct 1.5 % HANNAH Comment: Interpretive Data Percent cell count reference ranges are not reported, since discordance with absolute values may lead to misinterpretation of CBC data. Current Interpretive Data was last revised on 2017. Testing performed by: [address] [address] Lymphocyte pct 12.9 % [facility] Comment: Interpretive Data Percent cell count reference ranges are not reported, since discordance with absolute values may lead to misinterpretation of CBC data. Current Interpretive Data was last revised on 2017. Testing performed by: [address] [address] Monocyte pct 10.0 % [facility] Comment: Interpretive Data Percent cell count reference ranges are not reported, since discordance with absolute values may lead to misinterpretation of CBC data. Current Interpretive Data was last revised on 2017. Testing performed by: [address] [address] Eosinophil pct 3.8 % [facility] Comment: Interpretive Data Percent cell count reference ranges are not reported, since discordance with absolute values may lead to misinterpretation of CBC data. Current Interpretive Data was last revised on 2017. Testing performed by: [address] [address] Basophil pct 0.4 % HANNAH Comment: Interpretive Data Percent cell count reference ranges are not reported, since discordance with absolute values may lead to misinterpretation of CBC data. Current Interpretive Data was last revised on 2017. Testing performed by: [address] [address] Blood 12/05/2024 4:58 AM CDT 12/05/2024 5:12 AM CDT us Nika Calle NP LAB BLOOD ORDERABLES Final Re sult HANNAH [address] [facility] Department [place] [address] * (ABNORMAL) CBC with auto differential (12/05/2024 4:58 AM CDT) WBC 10.3(H) 3.8 - 9.9 K/cumm Comment:Testing performed by : [address] [address] Hgb 9.1(L) 11.9 - 15.5 g/dL HANNAH Comment:Testing performed by : [address] [address] Hct 28.4(L) 35.6 - 45.5 % HANNAH Comment:Testing performed by : [address] [address] Plt 396 150 - 400 K/cumm HANNAH Comment:Testing performed by : [address] [address] MPV 9.1 9.1 - 12.3 fL HANNAH Comment:Testing performed by : [address] [address] RBC 3.23(L) 3.90 - 5.20 M/cumm HANNAH Comment:Testing performed by : [address] [address] MCV 87.9 81.3 - 96.4 fL HANNAH Comment:Testing performed by : [address] [address] MCH 28.2 27.1 - 33.3 pg HANNAH Comment:Testing performed by : [address] [address] MCHC 32.0(L) 32.3 - 35.7 g/dL HANNAH LEA Comment:Testing performed by : [facility], [address] [place] [address]., [address] RDW CV 15.0(H) 11.1 - 14.9 % HANNAH LEA Comment:Testing performed by : [address] [address] RDW SD 48.8(H) 35.7 - 48.1 fL HANNAH LEA Comment:Testing performed by : [address] [address] NRBC abs 0.00 0.00 - 0.01 K/cumm HANNAH Comment:Testing performed by : [address] [address] Blood 12/05/2024 4:58 AM CDT 12/05/2024 5:12 AM CDT Nika Calle NP LAB BLOOD ORDERABLES Final Re sult HANNAH [address] [facility] Department [place] [address] * (ABNORMAL) Basic metabolic panel (12/05/2024 4:58 AM CDT) Sodium 139 135 - 145 mmol/L Comment:Testing performed by : [address] [address] Potassium, pl 4.5 3.3 - 4.9 mmol/L HANNAH LEA Comment:Testing performed by : [address] [address] Chloride 101 97 - 110 mmol/L HANNAH Comment:Testing performed by : [address] [address] CO2 28 22 - 32 mmol/L HANNAH LEA Comment:Testing performed by : [address] [address] Anion gap 10 2 - 15 mmol/L HANNAH LEA Comment:Testing performed by : [address] [address] BUN 22 6 - 25 mg/dL HANNAH LEA Comment:Testing performed by : [address] [address] Creatinine 1.42(H) 0.60 - 1.10 mg/dL HANNAH LEA Comment:Testing performed by : [address] [address] Glucose 109 70 - 199 mg/dL HANNAH LEA Comment: [...] was last revised 2022. Testing performed by: [address] [address] Calcium 9.3 8.5 - 10.3 mg/dL HANNAH Comment:Testing performed by : [address] [address] Blood 12/05/2024 4:58 AM CDT 12/05/2024 5:12 AM CDT us Nika Calle NP LAB BLOOD ORDERABLES Final Re sult HANNAH [address] [facility] Department [place] [address] * (ABNORMAL) eGFR (12/04/2024 5:05 [...] was last reviewed 2021. Testing performed by: [address] [address] Blood 12/04/2024 5:05 AM CDT 12/04/2024 5:29 AM CDT us Nika Calle NP LAB BLOOD ORDERABLES Final Re sult HANNAH [address] [facility] Department [place] [address] * (ABNORMAL) Differential, auto (12/04/2024 5:05 AM CDT) Neutrophil abs 6.4 1.5 - 6.5 K/cumm Comment:Testing performed by : [address] [address] Imm gran abs 0.2(H) 0.0 - 0.1 K/cumm HANNAH Comment:Testing performed by : [address] [address] Lymphocyte abs 1.2 0.8 - 3.3 K/cumm HANNAH Comment:Testing performed by : [address] [address] Monocyte abs 1.0(H) 0.2 - 0.8 K/cumm HANNAH Comment:Testing performed by : [address] [address] Eosinophil abs 0.3 0.0 - 0.5 K/cumm HANNAH Comment:Testing performed by : [address] [address] Basophil abs 0.1 0.0 - 0.1 K/cumm HANNAH Comment:Testing performed by : [address] [address] Neutrophil pct 70.2 % [facility] Comment: Interpretive Data Percent cell count reference ranges are not reported, since discordance with absolute values may lead to misinterpretation of CBC data. Current Interpretive Data was last revised on 2017. Testing performed by: [address] [address] Imm gran pct 1.7 % [facility] [place] Comment: Interpretive Data Percent cell count reference ranges are not reported, since discordance with absolute values may lead to misinterpretation of CBC data. Current Interpretive Data was last revised on 2017. Testing performed by: [address] [address] Lymphocyte pct 12.8 % [facility] Comment: Interpretive Data Percent cell count reference ranges are not reported, since discordance with absolute values may lead to misinterpretation of CBC data. Current Interpretive Data was last revised on 2017. Testing performed by: [address] [address] Monocyte pct 11.5 % [facility] Comment: Interpretive Data Percent cell count reference ranges are not reported, since discordance with absolute values may lead to misinterpretation of CBC data. Current Interpretive Data was last revised on 2017. Testing performed by: [address] [address] Eosinophil pct 3.1 % [facility] Comment: Interpretive Data Percent cell count reference ranges are not reported, since discordance with absolute values may lead to misinterpretation of CBC data. Current Interpretive Data was last revised on 2017. Testing performed by: [address] [address] Basophil pct 0.7 % [facility] Comment: Interpretive Data Percent cell count reference ranges are not reported, since discordance with absolute values may lead to misinterpretation of CBC data. Current Interpretive Data was last revised on 2017. Testing performed by: [address] [address] Blood 12/04/2024 5:05 AM CDT 12/04/2024 5:29 AM CDT us Nika Calle NP LAB BLOOD ORDERABLES Final Re sult HANNAH [address] [facility] Department [place] [address] * (ABNORMAL) CBC with auto differential (12/04/2024 5:05 AM CDT) WBC 9.1 3.8 - 9.9 K/cumm Comment:Testing performed by : [address] [address] Hgb 8.9(L) 11.9 - 15.5 g/dL HANNAH Comment:Testing performed by : [address] [address] Hct 28.5(L) 35.6 - 45.5 % HANNAH Comment:Testing performed by : [address] [address] Plt 383 150 - 400 K/cumm HANNAH Comment:Testing performed by : [address] [address] MPV 9.2 9.1 - 12.3 fL HANNAH Comment:Testing performed by : [address] [address] RBC 3.20(L) 3.90 - 5.20 M/cumm HANNAH Comment:Testing performed by : [address] [address] MCV 89.1 81.3 - 96.4 fL HANNAH Comment:Testing performed by : [address] [address] MCH 27.8 27.1 - 33.3 pg HANNAH LEA Comment:Testing performed by : [address] [address] MCHC 31.2(L) 32.3 - 35.7 g/dL HANNAH Comment:Testing performed by : [address] [address] RDW CV 15.0(H) 11.1 - 14.9 % HANNAH Comment:Testing performed by : [address] [address] RDW SD 49.6(H) 35.7 - 48.1 fL HANNAH LEA Comment:Testing performed by : [address] [address] NRBC abs 0.00 0.00 - 0.01 K/cumm HANNAH Comment:Testing performed by : [address] [address] Blood 12/04/2024 5:05 AM CDT 12/04/2024 5:29 AM CDT Nika Calle NP LAB BLOOD ORDERABLES Final Re sult HANNAH [address] [facility] Department [place] [address] * (ABNORMAL) Basic metabolic panel (12/04/2024 5:05 AM CDT) Sodium 139 135 - 145 mmol/L Comment:Testing performed by : [address], [address] Potassium, pl 4.6 3.3 - 4.9 mmol/L HANNAH LEA Comment:Testing performed by : [address] [address] Chloride 100 97 - 110 mmol/L HANNAH Comment:Testing performed by : [address], [address] CO2 28 22 - 32 mmol/L HANNAH Comment:Testing performed by : [address], [address] Anion gap 11 2 - 15 mmol/L HANNAH Comment:Testing performed by : [address] [address] BUN 26(H) 6 - 25 mg/dL HANNAH Comment:Testing performed by : [address], [address] Creatinine 1.30(H) 0.60 - 1.10 mg/dL HANNAH LEA Comment:Testing performed by : [address] [address] Glucose 104 70 - 199 mg/dL HANNAH [...] was last revised 2022. Testing performed by: [address] [address] Calcium 9.0 8.5 - 10.3 mg/dL HANNAH Comment:Testing performed by : [address] [address] Blood 12/04/2024 5:05 AM CDT 12/04/2024 5:29 AM CDT us Nika Calle NP LAB BLOOD ORDERABLES Final Re sult HANNAH [address] [facility] Department [place] [address] * US VEIN DUPLEX LOWER EXTREMITY LEFT LIMITED, UNILATERAL (12/03/2024 4:47 PM CDT) Anatomical Region Laterality Modality Vascular Left Ultrasound 12/03/2024 4:21 PM CDT Narrative 12/04/2024 8:56 AM CDT Lower Extremity Venous Report Patient Name: LUCILLE SEVILLA MAE : 1935 (89y 2m) Gender: F Study Date: 12/03/2024 04:21:28 PM Birth Certificate Clerk: Ariella Alonzo RDMS,RVT Location: [id number] Order Provider: NIKA CALLE Quality: Adequate Ref [...] distal augmentation. Provider Notification: RUBY Calle via [employer]. CONCLUSIONS: 1. There is no evidence of [...] Gender: F Study Date: 12/03/2024 04:21:28 PM Birth Certificate Clerk: Ariella Alonzo RDMS,RVT Location:[id number] Order Provider: NIKA CALLE Quality: Adequate Ref [...] to distalaugmentation. Provider Notification: RUBY Calle via [employer]. CONCLUSIONS: 1. There is no evidence of [...] ur Yellow Yellow Comment:Testing performed by : [address] [address] Clarity, ur Clear Clear HANNAH Comment:Testing performed by : [address], [place]., [address] Specific gravity, ur 1.009 1.003 - 1.030 HANNAH Comment:Testing performed by : [address], [place]., [address] pH, urine 6.5 HANNAH Comment: Interpretive Data U rine pH is affected by diet, medications, systemic acid-base disturbances, and renal tubular function. pH may affect urinary stone formation. For example, urine pH below 6.0 may help reduce the tendency for calcium phosphate stones and pH greater than 6.0 may reduce the tendency for uric acid stone formation. Source: [facility] Therasis Current Interpretive Data was last revised on 2017 Testing performed by: [address] [address] Protein, ur ql Negative Negative HANNAH Comment:Testing performed by : [address] [address] Glucose, ur ql Negative Negative HANNAH Comment:Testing performed by : [address] [address] Ketones, ur Negative Negative HANNAH Comment:Testing performed by : [address] [address] Bilirubin, ur Negative Negative HANNAH Comment:Testing performed by : [address] [address] Blood, ur Negative Negative HANNAH Comment:Testing performed by : [address] [address] Urobilinogen, ur <2.0 <2.0 mg/dL HANNAH Comment:Testing performed by : [address] [address] Nitrite, ur Negative Negative HANNAH Comment:Testing performed by : [address] [address] Leukocyte esterase, ur 3+(A) Negative HANNAH Comment:Testing performed by : [address] [address] UA reflex comment Reflex to microscopic UA will be performed. HANNAH Comment:Testing performed by : [facility], [address] [place] [address]., [address] Urine 12/03/2024 12:5 7 PM CDT 12/03/2024 1:01 PM CDT Narrative HANNAH - 12/03/2024 1:04 PM CDT If patient unable to urinate, straight cath Jaimie Romero MD LAB MICROBIOLOGY - GENERAL ORDERABLES Final Result Performing Organization Address City/[facility]/ZIP Co de Phone Number HANNAH [address] [facility] [employer] [place] [address] * (ABNORMAL) Urinalysis, microscopic only (12/03/2024 12:57 PM CDT) WBC, ur 11-20(A) 0 - 5 /HPF Comment:Testing performed by : [facility], [address] [place] [address]., [address] RBC, ur 0-2 0 - 2 /HPF HANNAH Comment:Testing performed by : [facility], [address] [place] [address]., [address] Culture Reflex Comment Reflex to urine culture will be performed. HANNAH Comment:Testing performed by : [facility], [address] [place] [address]., [address] Urine 12/03/2024 12:5 7 PM CDT 12/03/2024 1:01 PM CDT Jaimie Romero MD LAB URINE ORDERABLES Final Result Performing Organization Address City/[facility] Co de Phone Number HANNAH [address] [facility] [employer] [place] [address] * Urine culture Urine (12/03/2024 12:57 PM CDT) Report Final Report: Less than 100,000 colonies/mL (clinically insignificant growth based on current clinical standards) Comment:Testing performed by : [facility], [address] [facility] [place]., [address] Organism (CLINICALLY INSIGNIFICANT GROWTH HANNAH Urine 12/03/2024 12:5 7 PM CDT 12/03/2024 4:29 PM CDT Narrative HANNAH - 12/04/2024 5:30 PM CDT Urine culture reflexed based upon urinalysis results. Testing performed by [facility] Microbiology Laboratory ([phone]) Jaimie Romero MD LAB MICROBIOLOGY - GENERAL ORDERABLES Final Result HANNAH [address] [facility] Department [place] [address] * Blood culture Blood Peripheral (12/03/2024 11:27 AM CDT) Report Final Report: No growth Comment:Testing performed by : [facility], [address] [facility] [place]., [address] Blood (Peripheral) 12/03/2024 11:27 AM CDT 12/03/2024 4:57 PM CDT Narrative HANNAH - 12/08/2024 7:00 AM CDT From a [...] performance characteristics have been verified by the [facility] Microbiology Laboratory. For questions about this culture, contact the Microbiology Laboratory at [phone]. Interpretive data was last revised on 24. Jaimie Romero MD LAB MICROBIOLOGY - GENERAL ORDERABLES Final Result HANNAH LEA [address] [facility] Department [place] [address] * Blood culture Blood Peripheral (12/03/2024 11:27 AM CDT) Report Final Report: No growth Comment:Testing performed by : [facility], [address] [facility] [place]., [address] Blood (Peripheral) 12/03/2024 11:27 AM CDT 12/03/2024 4:57 PM CDT Narrative HANNAH - 12/08/2024 7:00 AM CDT Draw Blood [...] performance characteristics have been verified by the [facility]biology [facility]. For questions about this culture, contact the Microbiology Laboratory at [phone]. Interpretive data was last revised on 24. Jaimie Romero MD LAB MICROBIOLOGY - GENERAL ORDERABLES Final Result Performing Organization Address City/[facility] Co de Phone Number [facility] [address] [facility] Department [place] [address] * Sepsis Lactate w/ Reflex (12/03/2024 10:16 AM CDT) Pathologist [facility] Sepsis Lactate 1.7 0.7 - 2.0 mmol/L Comment:Testing performed by : [address] [address] Blood 12/03/2024 10:1 6 AM CDT 12/03/2024 10:21 AM CDT Jaimie Romero MD LAB BLOOD ORDERABLES Final Result Performing Organization Address [facility] Co de Phone Number [place]ILK[place]ER[place] [phone] [facility] [place] [address] * (ABNORMAL) eGFR (12/03/2024 10:16 AM CDT) Pathologist [facility] eGFR 39(L) >=60 mL/min/1. 73 m2 Comment: [...] of Race in Diagnosing Kidney Disease, JASN 202). The CKD-EPI equation should not be used for patients with unstable renal function and has not been validated in children and those over 70. Current interpretive data was last reviewed 2021. Testing performed by: [address] [address] Blood 12/03/2024 10:1 6 AM CDT 12/03/2024 10:21 AM CDT Jaimie Romero MD LAB BLOOD ORDERABLES Final Result HANNAH [address] [facility] Department [place] [address] * (ABNORMAL) Differential, auto (12/03/2024 10:16 AM CDT) Neutrophil abs 8.1(H) 1.5 - 6.5 K/cumm Comment:Testing performed by : [address] [address] Imm gran abs 0.2(H) 0.0 - 0.1 K/cumm HANNAH Comment:Testing performed by : [address] [address] Lymphocyte abs 1.0 0.8 - 3.3 K/cumm HANNAH Comment:Testing performed by : [address] [address] Monocyte abs 1.0(H) 0.2 - 0.8 K/cumm HANNAH Comment:Testing performed by : [address] [address] Eosinophil abs 0.3 0.0 - 0.5 K/cumm HANNAH Comment:Testing performed by : [address] [address] Basophil abs 0.1 0.0 - 0.1 K/cumm HANNAH Comment:Testing performed by : [address] [address] Neutrophil pct 76.0 % HANNAH Comment: Interpretive Data Percent cell count reference ranges are not reported, since discordance with absolute values may lead to misinterpretation of CBC data. Current Interpretive Data was last revised on 2017. Testing performed by: [address] [address] Imm gran pct 1.4 % HANNAH Comment: Interpretive Data Percent cell count reference ranges are not reported, since discordance with absolute values may lead to misinterpretation of CBC data. Current Interpretive Data was last revised on 2017. Testing performed by: [address] [address] Lymphocyte pct 9.5 % [facility] Comment: Interpretive Data Percent cell count reference ranges are not reported, since discordance with absolute values may lead to misinterpretation of CBC data. Current Interpretive Data was last revised on 2017. Testing performed by: [address] [address] Monocyte pct 9.4 % [facility] Comment: Interpretive Data Percent cell count reference ranges are not reported, since discordance with absolute values may lead to misinterpretation of CBC data. Current Interpretive Data was last revised on 2017. Testing performed by: [address] [address] Eosinophil pct 3.1 % [facility] Comment: Interpretive Data Percent cell count reference ranges are not reported, since discordance with absolute values may lead to misinterpretation of CBC data. Current Interpretive Data was last revised on 2017. Testing performed by: [address] [address] Basophil pct 0.6 % [facility] Comment: Interpretive Data Percent cell count reference ranges are not reported, since discordance with absolute values may lead to misinterpretation of CBC data. Current Interpretive Data was last revised on 2017. Testing performed by: [address] [address] Blood 12/03/2024 10:1 6 AM CDT 12/03/2024 10:21 AM CDT Jaimie Romero MD LAB BLOOD ORDERABLES Final Result HANNAH [address] [facility] Department [place] [address] * (ABNORMAL) CBC with auto differential (12/03/2024 10:16 AM CDT) WBC 10.6(H) 3.8 - 9.9 K/cumm Comment:Testing performed by : [address] [address] Hgb 9.9(L) 11.9 - 15.5 g/dL CERGEMMA Comment:Testing performed by : [address] [address] Hct 31.3(L) 35.6 - 45.5 % CERGEMMA Comment:Testing performed by : [address] [address] Plt 384 150 - 400 K/cumm HANNAH Comment:Testing performed by : [address] [address] MPV 9.0(L) 9.1 - 12.3 fL CERGEMMA Comment:Testing performed by : [address], [address] RBC 3.51(L) 3.90 - 5.20 M/cumm HANNAH Comment:Testing performed by : [address], [address] MCV 89.2 81.3 - 96.4 fL CERGEMMA Comment:Testing performed by : [address] [address] MCH 28.2 27.1 - 33.3 pg CERGEMMA Comment:Testing performed by : [address] [address] MCHC 31.6(L) 32.3 - 35.7 g/dL CERGEMMA Comment:Testing performed by : [address] [address] RDW CV 15.2(H) 11.1 - 14.9 % HANNAH Comment:Testing performed by : [address], [address] RDW SD 49.8(H) 35.7 - 48.1 fL CERGEMMA Comment:Testing performed by : [address] [address] NRBC abs 0.00 0.00 - 0.01 K/cumm HANNAH Comment:Testing performed by : [address], [address] Blood 12/03/2024 10:1 6 AM CDT 12/03/2024 10:21 AM CDT Jaimie Romero MD LAB BLOOD ORDERABLES Final Result Performing Organization Address [facility] Co de Phone Number SYBIL[address] [address] * Erythrocyte sedimentation rate (12/03/2024 10:16 AM CDT) [facility] Erythrocyte sedimentation rate 28 1 - 30 mm/hr Comment:Testing performed by : [address] [address] Blood 12/03/2024 10:1 6 AM CDT 12/03/2024 10:21 AM CDT Nika Calle NP LAB BLOOD ORDERABLES Final Re sult Performing Organization Address [facility] Co de Phone Number [address] [address] * (ABNORMAL) CRP (acute phase) (12/03/2024 10:16 AM CDT) [facility] CRP 14.5(H) <=10.0 mg/L Comment:Testing performed by : [address] [address] Blood 12/03/2024 10:1 6 AM CDT 12/03/2024 10:21 AM CDT Nika Calle NP LAB BLOOD ORDERABLES Final Re sult Performing Organization Address [facility] Co de Phone Number [address] [address] * (ABNORMAL) Comprehensive metabolic panel (12/03/2024 10:16 AM CDT) [facility] Sodium 137 135 - 145 mmol/L Comment:Testing performed by : [address] [address] Potassium, pl 4.7 3.3 - 4.9 mmol/L HANNAH Comment:Testing performed by : [address] [address] Chloride 102 97 - 110 mmol/L HANNAH Comment:Testing performed by : [address], [place]., [address] CO2 24 22 - 32 mmol/L HANNAH Comment:Testing performed by : [address] [address] Anion gap 11 2 - 15 mmol/L HANNAH Comment:Testing performed by : [address], [place]., [address] BUN 25 6 - 25 mg/dL HANNAH Comment:Testing performed by : [address] [address] Creatinine 1.30(H) 0.60 - 1.10 mg/dL HANNAH Comment:Testing performed by : [address] [address] Glucose 158 70 - 199 mg/dL HANNAH [...] was last revised 2022. Testing performed by: [address] [address] Calcium 9.1 8.5 - 10.3 mg/dL HANNAH Comment:Testing performed by : [address] [address] Bilirubin, total 0.2 0.1 - 1.2 mg/dL HANNAH Comment:Testing performed by : [address] [address] Protein, pl 6.7 6.5 - 8.5 g/dL HANNAH Comment:Testing performed by : [address], [place]., [address] Albumin 3.4(L) 3.5 - 5.0 g/dL HANNAH LEA Comment:Testing performed by : [address] [address] Alk phos 120 40 - 130 Units/L HANNAH LEA Comment:Testing performed by : [address] [address] ALT 13 7 - 45 Units/L HANNAH Comment:Testing performed by : [address], [address] AST 14 10 - 45 Units/L HANNAH Comment:Testing performed by : [address] [address] Blood 12/03/2024 10:1 6 AM CDT 12/03/2024 10:21 AM CDT Jaimie Romero MD LAB BLOOD ORDERABLES Final Result Performing Organization Address City/State/[facility] Co de Phone Number HANNAH [facility] [place] [address] * US Carotids Duplex Bilateral (11/02/2024 11:22 AM TRAVEL AGENCY MANAGER) Anatomical Region Laterality Modality Vascular Bilateral Ultrasound 11/02/2024 9:53 AM TRAVEL AGENCY MANAGER Narrative 11/02/2024 6:34 PM TRAVEL AGENCY MANAGER [facility] [address] [place] [address] Carotid Duplex Ultrasound Report Patient Name: LUCILLE SEVILLARYAN : 1935 (89y 1m) Study Date: 11/02/2024 9:53:15 AM Gender: F Birth Certificate Clerk: SUSANNE Location: [facility] Ref Provider: JEANIE GASCA Quality: [...] By: Los Escobar MD 11/02/2024 6:29:32 PM TRAVEL AGENCY MANAGER Procedure Note Los Escobar MD - 11/02/2024 [facility] Surgery [facility] [address] Carotid Duplex Ultrasound Report Patient Name: LUCILLE SEVILLA RYAN : 1935 (89y 1m) Study Date: 11/02/2024 9:53:15 AM Gender: F Birth Certificate Clerk: SUSANNE Location: [facility] Ref Provider: JEANIE GASCA Quality: Adequate Order [...] internal carotid artery disease is consistent with dmpuvmmq10-79% stenosis. 2. Normal, antegrade flow is noted [...] By: Los Escobar MD 11/02/2024 6:29:32 PM TRAVEL AGENCY MANAGER Jeanie Gasca MD IMG US PROCEDURES Final R esult * ECG 12 lead (10/28/2024 2:38 PM TRAVEL AGENCY MANAGER) Jeanie Gasca MD ECG ORDERABLES Final Res ult from Last 3 Months Insurance MEDICARE [facility] MEDICARE [facility] MEDICARE [facility] FEDERAL Advance Directives For more information, please contact: [phone] Documents on File Type Date Recorded Patient Resident Athletic Trainer Expl anation ADVANCE DIRECTIVE 12/13/2024 11:42 AM Jono Terrazas ADVANCE DIRECTIVE 12/13/2024 11:42 AM Power of Cloth Shader-Medical ADVANCE DIRECTIVE 07/26/2024 8:59 AM POLS T [...] vasopressorsNo internal / external pacemaker Care Teams Family Service Counselor Relationship Specialty Start Date End Date Irving Montes MD PCP - General Family Medicine 04/27/18
--- OUTSIDE RECORDS SUMMARY | 2024-12-28 12:59 | XMS_ITS | Clinical Summary ---
Author Organization [facility] Address [address] [place] [address] Care Team Providers Care Container Filler Name Role Phone Unavailable Primary Care Provider Unavailabl e Source Comments [facility],non-owned Affiliates and Associated Physician Practices is amultiple site organization consisting of ambulatory clinics and hospital sitesin [place], [place], [place] and [place]. This disclosure is being madepursuant to the Care Everywhere program and may not contain all information available regarding this patient. Last updated 18.[facility] Social History Tobacco Use Types Packs/Day Years Used Date Smoking Tobacco: Never Assessed Comments Unknown Sex and Gender Information Value Date Recorded Sex Assigned at Not on file Legal Sex Female 7:04 AM PHOTOGRAPH ENLARGER Gender Identity Not on file Sexual Orientation [...] COVID-19 VACCINE (2 - season) 2024 07/20/2021 DEPRESSION SCREENING 09/08/2024 INFLUENZA VACCINE (Season Ended) 2025 07/13/2020, 06/08/2019, 05/25/2019, Additional history exists HEPATITIS B VACCINE Aged Out No longe [...] on patient's age to complete this topic [place] [address] [facility]
--- OUTSIDE RECORDS SUMMARY | 2024-12-28 12:59 | XMS_ITS | Encounter Summary ---
Author Organization [facility] Address [address] [place] [address] Care Team Providers Care Wheel And Caster Repairer Name Role Phone Unavailable Primary Care Provider Unavailabl e Encounter Details Date Type Department Care Team (Late st Contact Info) Description 07/24/2023 Lab Requisition [facility] - DermPath Lab [address] [place] [id number] Jamil Salas MD [address] [place] [address] Social History Tobacco Use Types Packs/Day Years Used Date Smoking Tobacco: Never Assessed Comments Unknown Sex and Gender Information Value Date Recorded Sex Assigned at Not on file Legal Sex Female 7:04 AM GRAPHIC DESIGN ASSISTANT Gender Identity Not on file Sexual Orientation Not on file documented as of this encounter Plan of Treatment Not on file documented as of this encounter Procedures Procedure Name Priority Date/Time Associated Diagnosis Comments DERMATOPATHOLOGY Routine 07/22/2023 12:0 0 AM GRAPHIC DESIGN ASSISTANT documented in this encounter Results * DERMATOPATHOLOGY (07/22/2023 12:00 AM GRAPHIC DESIGN ASSISTANT) Case Report Dermatopathology Report Case: [id number] Authorizing Provider: Jamil Salas MD Collected: 07/22/2023 12:00 AM Ordering Location: [facility] DermPath Lab Received: 07/24/2023 09:19 AM Pathologist: Charlene Yang MD Specimen: Skin, nasal tip 3 3:16 PM GRAPHIC DESIGN ASSISTANT DERMATOPATHOLOGY LABORATORY Final Diagnosis Specimen A. SKIN, nasal tip: BASAL CELL CARCINOMA, NODULAR TYPE (C44.311) 3 3:16 PM GRAPHIC DESIGN ASSISTANT DERMATOPATHOLOGY LABORATORY Clinical History R/O BCC 3:16 PM [facility] DERMATOPATHOLOGY LABORATORY Gross Description Specimen A: Received is one formalin filled container labeled with the patient's name and designated nasal tip. The specimen consists of a (3) pieces shave biopsy measuring 1x4x1, 6x5x1, 3x3x1 mm. Jar 0. 3:16 PM [facility] DERMATOPATHOLOGY LABORATORY Microscopic Description Specimen A. SKIN, nasal tip: Within the dermis there are aggregates of basaloid cells with a high nuclear to cytoplasmic ratio and peripheral palisading. 3 3:16 PM GRAPHIC DESIGN ASSISTANT DERMATOPATHOLOGY LABORATORY Disclaimer An external and internal positive and negative controls are appropriate for the histochemical, immunohistochemical and immunofluorescence stain(s) in this case (if any), except where stated explicitly. The performance characteristics of the stain(s) cited in this report were developed and its performance characteristic determined by the Dermatopathology Laboratory at [facility], directed by Dr. Anil Willett. These tests need not be, and therefore are not, approved by the [place] Food and Drug Administration. The tests are used for clinical purposes. Billing Codes Specimen Charges Stain Charges 99357 1 3 3:16 PM GRAPHIC DESIGN ASSISTANT DERMATOPATHOLOGY LABORATORY Embedded Images 3 3:16 PM GRAPHIC DESIGN ASSISTANT DERMATOPATHOLOGY LABORATORY Pathology/Cytolog y TISSUE SPECIMEN FROM SKIN / Unknown 07/22/2023 07/24/2023 9:19 AM GRAPHIC DESIGN ASSISTANT Jamil Salas MD LAB - PATHOLOGY/CYTOLOGY ORDERAB LES Final Result DERMATOPATHOLOGY LABORATORY [facility] - Department of Dermatology [address] [phone] documented in this encounter Visit Diagnoses Not on filedocumented in this encounter
--- OUTSIDE RECORDS SUMMARY | 2024-12-28 12:59 | XMS_ITS | Encounter Summary ---
Author Organization [facility] Address [address] [place] [address] Care Team Providers Care Mold Blower Name Role Phone Teddy Vance MD Primary Care Provider [phone] Encounter Details Date Type Department Care Team (Latest Contact Info) Description 07/05/2008 Outpatient Historical [facility] ALISE Aquino Jr., Stevenson Miller MD NO ADDRESS ON FILE Other Screening Mammogram Social History Tobacco Use Types Packs/Day Years Used Date Smoking Tobacco: Never Assessed Comments Unknown Sex and Gender Information Value Date Recorded Sex Assigned at Not on file Legal Sex Female 4:27 AM POULTRY SCIENTIST Gender Identity Not on file Sexual Orientation [...] PM CDT Narrative 07/05/2008 8:[address] [facility] [address] [place], [place] [address] Admit Date: 07/05/2008 ERVIN SEVILLA Sex: F Admit Prov: STEVENSON AQUINO Date: 1935 Primary Care Prov: CMRN: [id number] Room: VIPIN SSN: [id number] IMAGING SERVICES Ordering Prov: STEVENSON AQUINO Accession Number: [id number] Interpretation BILATERAL FULL FIELD DIGITAL SCREENING MAMMOGRAM [...] AMK Procedure Note Dolly Cortes - 07/05/2008 [facility] [address] [place], [place] [address] Admit Date: 07/05/2008 ERVIN SEVILLA Sex: F Admit Prov: STEVENSON AQUINO Date: 1935 Primary Care Prov: CMRN: [id number] [facility] [address] [place] [address] IMAGING SERVICES Ordering Prov: STEVENSON AQUINO Interpretation [...] mammogram documented in this encounter Care Teams Mold Blower Relationship Specialty Start Date End Date Teddy Vance MD [address] [facility] [address] [place] [address] PCP - General 09/04/09 documented as of this encounter
--- OUTSIDE RECORDS SUMMARY | 2024-12-28 12:59 | XMS_ITS | Clinical Summary ---
Author Organization [facility] Address [address] [address] Phone Care Team Providers Care Electrical Installation Supervisor Name Role Phone Irving Montes MD Primary Care Provider Allergies Active Allergy Reactions Criticality Noted Date Comments Codeine Rash Low 10/21/2019 Cephalexin Low 10/21/2019 Upset stomach Niacin Hives 10/21/2019 Penicillins Hives 10/21/2019 Medications ALPRAZolam (XANAX) 0.5 MG tablet TK 1 T PO QID 9 Active amLODIPine (NORVASC) 5 MG tablet TK 1 T PO D 9 Active atorvastatin (LIPITOR) 10 MG tablet 9 Active clopidogrel (PLAVIX) 75 MG tablet TK 1 T PO QD 9 Active cyanocobalamin (VITAMIN B-12) 1000 MCG/ML injection INJECT 1 ML SQ Q MONTH 9 Active esomeprazole (NexIUM) [address] capsule TK ONE C PO D 9 Active irbesartan (AVAPRO) 300 MG tablet TK 1 T PO QD 9 Active metOLazone (ZAROXOLYN) 5 MG tablet TK 1 T PO QD 9 Active montelukast (SINGULAIR) 10 MG tablet TK 1 T PO D 9 Active traMADol (ULTRAM) 50 MG tablet TK 1 TO 2 TS PO Q 6 TO 8 H PRN 9 Active albuterol HFA (PROVENTIL HFA;VENTOLIN HFA) 108 (90 Base) MCG/ACT inhaler albuterol sulfate HFA 90 mcg/actuation aerosol inhaler Active furosemide (Lasix) 40 MG tablet Take 3 tablets (120 mg total) by mouth 1 (one) time each day 90 tablet 3 0 Active potassium chloride (K-Tab) 10 MEQ CR tablet Take 10 mEq by mouth 4 times a day Active levothyroxine (SYNTHROID) 75 MCG tablet levothyroxine 75 mcg tablet Active Fluocinolone Acetonide 0.01 % oil fluocinolone acetonide oil 0.01 % ear drops Active phenazopyridin e (PYRIDIUM) 200 MG tablet 1 Active escitalopram (LEXAPRO) 10 MG tablet Take 10 mg by mouth 1 (one) time each day Active spironolactone (ALDACTONE) 25 MG tablet TAKE 1/2 TABLET BY MOUTH EVERY DAY 15 tablet 4 2 Active Pancrelipase, Oun-Sjdm-Kyye, (Zenpep) 29749-874090 units capsule delayed-releas e particles TAKE 2 CAPSULES BY MOUTH WITH MEALS AND 1 CAPSULE WITH SNACKS FOUR TIMES DAILY 2 Active bumetanide (BUMEX) 2 MG tablet Take 2 tablets (4 mg total) by mouth 2 (two) times a day 120 tablet 5 2 Active Active Problems Problem Noted Date Diagnosed [...] Gastroesophageal reflux disease Osteoarthritis Depressive disorder Immunizations Immunization Administration Dates Next Due Influenza (IM) Preservative [...] drink = 0.6 oz pur e alcohol) Comments Unknown Sex and Gender Information Value Date Recorded Sex Assigned at Not on file Legal Sex Female 9:39 AM MST Gender Identity Not on file Sexual Orientation [...] Medium Risk (1 of 4 - PCV) 1985 COVID-19 Vaccine ( - 2023-2 5 season) 2024 07/20/2021 Influenza Vaccine (Season Ended) 2025 06/21/2017, 06/29/2016, 07/03/2015, Additional history exists Insurance MEDICARE [employer] Care Teams Electrical Installation Supervisor Relationship Specialty Start Date End Date Irving Montes MD [address] [place] [phone] PCP - General Family Medicine 09/06/19
[2024-12-28 13:07] LABS: Creatinine Urine 19.1 mg/dL; Total Protein Urine Random 9 mg/dL; Ur Ttl Prot Creatinine Ratio 0.47 mg/mg (0-0.20)
[2024-12-28 15:11] LABS: Vitamin D 25 Hydroxy 29.3 ng/mL
== END 2024-12-28 11:09 | disposition home or self-care (01) ==
PROVIDERS: PCP Family Medicine; Visit Provider Internal Medicine Nephrology
DX: I12.9 Hypertensive chronic kidney disease with stage 1 through stage 4 chronic kidney disease, or unspecified chronic kidney disease (principal); N18.32 Chronic kidney disease, stage 3b; D63.1 Anemia in chronic kidney disease; R60.0 Localized edema
CPT/HCPCS: 36415; 80048; 80069; 82306; 82570; 83970; 84156; 85025

== ENCOUNTER 2025-02-09 10:43 | Outpatient (CLI) | payer MEDICARE, BC, SELFPAY ==
--- OUTSIDE RECORDS SUMMARY | 2025-02-09 10:50 | XMS_ITS | Data Portability ---
Author Organization [place] [facility], Main Office Address [address] [place] [address] Care Team Providers Care Job Molder Name Role Phone JORGE L APODACA Primary Care Provider JORGE L APODACA Referring Provider [phone] Assessment Encounter Date Assessment Date Assessment LastModified by Organization Details LastModified Time 12/05/2022 12/05/2022 Patient has mefy-dp-brhu arthritis both knees she really would need [...] she is going to check with her facing end trimmer to see if she can take the prednisone pills. I will see her back every 3 or 4 months for injections if she requires discussed. Her medical problems and complications occur include kidney failure morbid obesity and some cardiac issues. roshan Not available 12/05/2022 14:14:17 02/06/2023 02/06/2023 Patient returns knee pain bilaterally. She has vqrr-un-hllh arthritis of her knees. She is not [...] DO Not Attach Compendium, Do Not Delete/merge, [id number] 13:15:49 injection/a spiration joint/bursa (PROC) - in office procedure, administere d by provider 2022 023 [email or web address] In-Office Order, Internal Use Only DO Not Attach Compendium DO Not Attach Compendium, Do Not Delete/merge, 13:52:27 Surgeries None recorded. Imaging XR, knee 2022 023 [email or web address] [address] [facility] [place], [address] [facility] [address], [place], [address], 3 14:38:34 Medication Orders Kenalog 10 mg/mL suspension for injection [address] [place] [address], [address] [place] [address], [address], 3 13:17:04 ropivacaine (PF) 5 mg/mL (0.5 %) injection solution [email or web address], [address] [place] [address], [address], 3 13:17:04 Kenalog 10 mg/mL suspension for injection [email or web address], [address] [place] [address], [address], 3 14:03:48 ropivacaine (PF) 5 mg/mL (0.5 %) injection solution 2022 023 [email or web address] Not available 14:51:16 prednisone 10 mg tablets in a dose pack 2022 David monsalve [address] [facility], [address] [facility], [place], [address], 14:03:48 Patient TargetsNo targets recorded. Patient InstructionsNo instructions recorded. Reason for Referral None Reported. Results Created Date Observation Date Name Description Value Unit Range Abnormal Flag Note LastModifiedBy Organization Detail LastModifiedTime 03/07/20 22 XR, hip + pelvi s, unila teral , 2 or 3 view No observ ation record ed. [id number] [facility] [place] [address], [place], [address], 11/06/2022 13:32:51 06/27/20 22 XR, knee, 3 view No observ ation record ed. [id number] [facility] [place] [address], [place], [address], 11/06/2022 13:32:51 12/06/19 23 XR, knee No observ ation record ed. [email or web address] [facility] [place] [address], [place], [address], 12/05/2022 14:38:33 Result Notes None recorded. 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 8617147785848 105 Active 2021 Not Available [facility] 3 13:30:19 Bilateral osteoarthr itis of knees 0795894879331 07 Active 2022 Not Available [facility] 3 13:30:19 Pain in left sacroiliac joint 2537787574414 9102 Active 2020 Not Available [facility] 3 13:30:19 Pain in right sacroiliac joint 8946618535659 9107 Active 2020 Not Available [facility] 3 13:30:19 Sprain of sacroiliac ligament 52425178 Active Not Available [facility] 3 13:30:19 Disorder of sacrum 73819543 Active Not Available [facility] 3 13:30:19 Spinal stenosis of lumbar region 10022239 Active Not Available [facility] 3 13:30:20 Lesion of radial nerve 496795611 Active Not Available [facility] 3 13:30:20 Knee joint effusion 227241578 Active Not Available [facility] 3 13:30:20 Lumbar sprain 760465981 Active Not Available [facility] 3 13:30:20 Fall on same level from slipping, tripping or stumbling Active Not Available [facility] 3 13:30:20 Morbid obesity 536336594 Active 2020 Not Available [facility] 3 13:30:20 Osteoarthr itis of knee 760027211 Active Not Available [facility] 3 13:30:20 Fibromyosi tis 98671773 Active Not Available [facility] 3 13:30:20 Low back pain 486569969 Active Not Available [facility] 3 13:30:20 Recurrent dislocatio n of shoulder region 98736725 Active Not Available [facility] 3 13:30:20 Enthesopat hy of hip region 06032062 Active Not Available [facility] 3 13:30:20 Knee pain Active Not Available [facility] 3 13:30:20 Pain of left hip joint 9137497854531 00 Active 2021 Not Available [facility] 3 13:30:20 Trochanter ic bursitis of left hip 0183943312666 03 Active 2020 Not Available [facility] 3 13:30:21 Trochanter ic bursitis of right hip 8407919291940 00 Active 2019 Not Available [facility] 3 13:30:21 Osteoarthr itis of left knee joint 9881028107569 09 Active 2020 Not Available [facility] 3 13:30:21 Osteoarthr itis of right knee joint 2794828485621 00 Active 2020 Not Available [facility] 3 13:30:21 Enthesopat hy of knee 06923930 Active Not Available [facility] 3 13:30:21 Osteoarthr itis 276794066 Active Not Available [facility] 3 13:30:21 Closed fracture of trochanter of femur 590659303 Active Not Available [facility] 3 13:30:21 History of total replacemen t of right hip joint 2864806589434 00 Active 2021 Not Available [facility] 3 13:30:21 Pain of bilateral knee joints 2674704678183 04 Active 2021 Not Available [facility] 3 13:30:22 Lumbosacra l spondylosi s without myelopathy 87467072 Active Not Available [facility] 3 13:30:22 Disorder of bursa of shoulder region 31967619 Active Not Available [facility] 3 13:30:22 Fracture of neck of femur 2208926 Active Not Available [facility] 3 13:30:22 Disorder of coccyx 15508212 Active Not Available [facility] 3 13:30:22 Osteoarthr itis of shoulder region 44205513 Active Not Available [facility] 3 13:30:22 Degenerati on of interverte bral disc 06176296 Active Not Available [facility] 3 13:30:22 Pain in limb 24971182 Active Not Available [facility] 3 13:30:22 Problem Notes None recorded. Procedures Surgical History Date Name Laterality Status Provider Name and Address Organization Details Recorded Time 02/07/20 23 Ortho - Cortisone Injection completed Babar Guadarrama MD [address] [place] [address], [place] [address], [place], [address], [facility] [employer] [facility] 02/06/2023 13:34:44 12/06/19 23 Ortho - Cortisone Injection completed Babar Guadarrama MD [address] [facility], [place], [address], [facility] [employer] [facility] 12/05/2022 14:11:16 total replacement of hip completed Not Available [facility] 11/06/2022 13:29:40 Imaging Results None recorded. Procedure Notes None recorded. Medical Equipment None Reported. Allergies Allergen ID Allergen Name Allergen Category Reaction Reaction Severity Criticality Documentation Date Start Date Code Code System Note Provider Name and Address Organization Details Recorded Time 21795 Product containin g penicilli n (product) medicatio n Not available Not available Not available 11/06/2022 35177 8001 SNOMED Not Available [facility] 3 13:32:48 36945 codeine medicatio n Not available Not available Not available 11/06/2022 2670 RxNorm Not Available [facility] 3 13:32:48 Medications Name Sig Start Date Stop [...] 40 mg by injection route. 2022 active [facility]: 0003- 0494- 20 Not Available Not Available [...] completed Not Available Not Available Not Available Lancets,Ult ra Thin 09/07 completed Not Available Not [...] administe red by the provider 12/20 completed [facility]: 0409- 4276- 17 Not Available Not Available [...] 40 mg by injection route. 2022 active [facility] 73859 -064- 01 Not Available Not Available Not Available Fluzone High-Dose 2013- (PF) 180 mcg/0.5 mL intramuscul ar syringe active Not Available Not Available N ot Available Fluarix Quad (PF) 60 mcg (15 mcg x 4)/0.5 [...] Not Available No t Available Fluzone High-Dose 2019-20 (PF) 180 mcg/0.5 mL intramuscul ar syringe ADM 0.5ML IM UTD 12/20 completed Not Available Not Available Not Available Vitals Date Recorded Body mass index (BMI) Body height Body weight Provider Name and Address Organization Details Last Updated DateTime 10/03/2022 38.7 kg/m2 167.64 cm 155769.17 g Not Available [facility] 11/06/2022 13:29:46 Date Recorded Body height Body mass index (BMI) Body weight Provider Name and Address Organization Details Last Updated DateTime 12/05/2022 167.64 cm 37.8 kg/m2 662648.61 g Maryellen Thibodeaux [facility]NA [facility] 12/05/2022 13:33:03 Date Recorded Body height Body mass index (BMI) Body weight Provider Name and Address Organization Details Last Updated DateTime 02/06/2023 167.64 cm 37.8 kg/m2 460922.61 g Maryellen Thibodeaux [facility]NA [facility] 02/06/2023 13:10:53 Date Recorded Body mass index (BMI) Body height Body weight Provider Name and Address Organization Details Last Updated DateTime 03/07/2022 37.8 kg/m2 167.64 cm 985931.61 g Not Available [facility] 11/06/2022 13:29:46 Date Recorded Body mass index (BMI) Body height Body weight Provider Name and Address Organization Details Last Updated DateTime 06/27/2022 37.8 kg/m2 167.64 cm 197331.61 g Not Available [facility] 11/06/2022 13:29:46 Social History Question Answer Notes LastModified by Organizat ion Details LastModified Time Tobacco Smoking Status Former Smoker Maryellen Thibodeaux, 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 16+yearssin celastcigar ette 30 Years Ago [email or web address] Information not available 02/06/2023 Sex: Unknown Functional Status Question Answer Note LastModified by Organizat ion Details LastModified Time What is your level of alcohol consumption? Occasional [id number] Information not available 11/06/2022 Mental Status None recorded. Family History Relationship Description Onset Age of this Age Resolved Age Notes LastModified by Organization Details LastModified Time Maternal Grandmother Heart disease [id number] Not available 11/06/2022 13:29:40 Father Family history of malignant neoplasm [id number] Not available 11/06/2022 13:29:40 Father History of hypertension [id number] Not available 11/06/2022 13:29:40 Mother History of hypertension [id number] Not available 11/06/2022 13:29:40 Medical History Condition Response ARTHRITIS Y ULCERS Y USE OF BLOOD THINNERS Y OSTEOPOROSIS Y URINARY/BLADDER/KIDNEY PROBLEMS Y OTHER # 1 Y HEART ARRHYTHMIA Y LUNG DISEASE/DISORDER Y OSTEOARTHRITIS Y COPD Y STROKE/TIA Y Gynecological HistoryNo gynecological history recorded. Obstetrics History GPAL:G 0 P 0 0 0 0 Past Encounters Encounter ID Performer Location Encounter Start Date Encounter Closed Date Diagnosis/Indication Diagnosis SNOMED-CT Code Diagnosis ICD10 Code Diagnosis Note [id number] NAKUL Timmons [facility] [place] [address] [place] [address] 12/05/2020 00:00:00 12/05/2020 15:05:50 [id number] Babar Guadarrama MD [facility] [place] [address] [place] [address] 07/05/2021 00:00:00 07/05/2021 13:31:46 [id number] Babar Guadarrama MD [facility] [place] [address] [place] [address] 12/20/2021 00:00:00 12/20/2021 11:36:36 [id number] Babar Guadarrama MD [facility] [place] [address] [place] [address] 03/07/2022 00:00:00 03/07/2022 11:57:50 [id number] Babar Guadarrama MD [facility] [place] [address] [place] [address] 06/27/2022 00:00:00 06/27/2022 11:31:16 [id number] Babar Guadarrama MD [facility] [place] [address] [place] [address] 10/03/2022 00:00:00 10/03/2022 11:09:21 [id number] Babar Guadarrama MD [facility] [place] [address] [place] [address] 12/05/2022 13:25:51 12/05/2022 14:28:54 Bilateral osteoarthritis of knees 2039941754 32872 M17.0 Low back pain 846271147 M54.50 Trochanter ic bursitis of left hip 7795427989 84968 M70.62 Trochanter ic bursitis of right hip 1290746003 76721 M70.61 Pain of le ft hip joint 9446437851 42549 M25.552 [id number] Babar Guadarrama MD [facility] [place] [address] [place] [address] 02/06/2023 12:52:16 02/06/2023 14:05:35 Bilateral osteoarthritis of knees 8287756698 44095 M17.0 Low back pain 994334589 M54.50 Trochanter ic bursitis of left hip 5955150330 95043 M70.62 Trochanter ic bursitis of right hip 3706614502 12073 M70.61 Pain of le ft hip joint 4099277565 68828 M25.552 Health Concerns Section Related Observation LastModified by Organization Detai ls LastModified Time None Recorded Concern Status LastModified by Organization Details LastModified Time None Recorded Advance Directives Directive None Recorded Payers Encounter Date Sequence Insurance Name Policy Number Policy Phelan Covered Member ID Phelan Member ID Guarantor Name 12/05/2022 1 [place] Lucille Vasques [id number] Lucille Vasques 12/05/2022 2 [place] 104 Lucille Vasques [id number] Lucille Vasques 02/06/2023 1 [place] Lucille Vasques [id number] Lucille Vasques 02/06/2023 2 [place] 104 Lucille Vasques [id number] Lucille Vasques Notes Date Note Type Note [...] change in bowel/bladder habits;weakness;s welling Not Available [facility] 03/07/2022 11:57:50 12/05/2022 text/html Patient returns status post arthritis both knees she has pzuv-zy-qpiq arthritis however she has kidney failure at this time and is not a surgical candidate. I told her there is really not much else I can do other than occasional cortisone shots. Babar Guadarrama MD [address] [place] [address], [place] [address], [place], [address], [facility] 12/05/2022 14:38:39 02/06/2023 text/html Patient returns status post arthritis both knees she has sxzt-cv-vlvf arthritis however she has kidney failure at this time and is not a surgical candidate. I told her there is really not much else I can do other than occasional cortisone shots. Babar Guadarrama MD [address] [place] [address], [facility] [address], [place], [address], [place] [facility] 02/06/2023 13:36:19 OBGyn Episode No OBEpisode recorded.
--- OUTSIDE RECORDS SUMMARY | 2025-02-09 10:50 | XMS_ITS | Continuity of Care Document ---
Author Organization [facility] Address [address] [place] [address] [place] [address] Phone Care Team Providers Care Stonemason Apprentice Name Role Phone [facility] Unavailable Unavail able Tyron, Margarita Unavailable Unavailable Procedures Procedure Date Frames Deluxe Miscellaneous [facility] - Supplies [employer] - Medical BF Polycarb Sphcyl Mounds To +/-4d .12-2d Tint Photochromatic, Polycarb 8 [employer] - Medical Eye Exam & Treatment Advance Directives Directive Yes / No Effective Date File Name No Information Encounters Encounter Description Practice Location Reason(s) For Visit Diagnoses Date Provider Providers Copied on Encounter [facility], [address] [place] [address], [place], [place], [id number], tel:[phone] [facility] No Information 9 [facility] . [address] [place] [address], [id number], [place]. tel:[phone] Consulting Provider: Margarita Ackerman, [address] [place], [address]. tel:[phone] [facility], [address] [place], [place] [address], [place], [place], [id number], tel:[phone] [facility] No Information 8 [facility] . [address] [place] [address], [id number], [place]. tel:[phone] Consulting Provider: Patti Jensen, [address] [facility], [place], [address]. tel:[phone] [facility], [address], [place], [place], [id number], [place] tel:[phone] [facility] No Information [address] Philomena Kim. [address] [facility], [address], [place], [place], [id number], [place]. tel:[phone] Family History Family Member Type Diagnosis Age At Onset No Information Payers Payer name Insurance type Covered democrat ID Authoriza tion(s) No Information Social History [...]
--- OUTSIDE RECORDS SUMMARY | 2025-02-09 10:50 | XMS_ITS | Clinical Summary ---
Author Organization [facility] Address [address] [address] Phone Care Team Providers Care Supervisor Instrument Mechanics Name Role Phone Irving Montes MD Primary Care Provider [phone] Allergies Active Allergy Reactions Criticality Noted Date [...] DAY 15 tablet 4 2 Active Pancrelipase, Qal-Kwoz-Ovmb, (Zenpep) 37540-721739 units capsule delayed-releas e particles TAKE 2 [...] 1:41 PM CDT Height 167.6 cm (5' 6) 06/05/2022 1:41 PM CDT Body Mass Index 38.74 06/05/2022 1:41 PM CDT Plan of Treatment Health Maintenance Due Date Last Done Comments Pneumococcal PPSV23/PCV13 65 + Years / Low and Medium Risk (1 of 4 - PCV) 1985 COVID-19 Vaccine ( - 2023-2 5 season) 2024 07/20/2021 Influenza Vaccine (Season Ended) 2025 06/21/2017, 06/29/2016, 07/03/2015, Additional history exists Insurance MEDICARE [facility] Care Teams Supervisor Instrument Mechanics Relationship Specialty Start Date End Date Irving Montes MD [address] [place] [phone] PCP - General Family Medicine 09/06/19
--- OUTSIDE RECORDS SUMMARY | 2025-02-09 10:51 | XMS_ITS | Clinical Summary ---
Author Organization [facility] [place] [address] Address [address] [place] [address] Care Team Providers Care High Value Associate Name Role Phone Irving Montes MD Primary Care Provider [phone] Allergies Active Allergy Reactions Criticality Noted Date Comments Clindamycin Stomach upset Medium 12/03/2024 Heartburn like symptoms burning in esophagus Codeine Doxycycline Hives Medium 08/17/2024 Niacin Penicillamine Unknown 02/18/2019 Penicillins Rash High 04/27/2018 Medications montelukast (SINGULAIR) 10 mg tabletIndicatio ns:Seasonal Allergic Rhinitis take 1 tablet (10MG) by oral route every day in the evening 0 01/23/[address] (NexIUM) 40 mg capsuleIndicati ons:stomach take 1 capsule by oral route every day 0 0 12/21/19 15 Active clopidogrel (PLAVIX) 75 mg tabletIndicatio ns:myocardial infarction prevention,stro ke prevention Take 1 tablet (75 mg total) by mouth every evening 04/14/20 18 Active levothyroxine (SYNTHROID) 75 mcg tabletIndicatio ns:hypothyroidi sm Take 1 tablet (75 mcg total) by mouth machine sprayer before breakfast 11/21/19 21 Active ondansetron (ZOFRAN) 4 mg tabletIndicatio ns:nausea/vomit ing Take 1 tablet (4 mg total) by [...] total) by mouth daily 03/18/20 23 Active multivit,calc,m ins/iron/folic (THERA M PLUS, FERROUS [...] by mouth daily Active miconazole 2 % powderIndicatio ns:cutaneous candidiasis Apply topically 2 (two) times a day 70 g 07/25/20 24 Active Additional Information Patient not taking.Reported on 02/03/2025 senna-docusate (PERICOLACE) 8.6-50 mgIndications:c onstipation Take 1 tablet by mouth 2 (two) times a day 30 tablet 07/25/20 24 Active acetaminophen (TYLENOL) 500 mg tabletIndicatio ns:Fever,Pain Take 1 tablet (500 mg total) by mouth every 6 (six) hours as needed for pain Active white petrolatum-mine ral oiL (EUCERIN) creamIndication s:skin irritation Apply topically daily 454 g 08/25/20 24 Active atorvastatin (LIPITOR) 20 mg tablet Take 1 tablet (20 mg total) by mouth daily Active hydrALAZINE (APRESOLINE) 10 mg tabletIndicatio ns:hypertension Take 1 tablet (10 mg total) by mouth 4 (four) times a day as needed (for elevated blood pressures) Active traMADoL (ULTRAM) 50 mg tablet Take 1 tablet (50 mg total) by mouth every 8 (eight) hours as needed for pain for up to 5 days 15 tablet 12/11/19 25 Active loperamide (IMODIUM) 2 mg capsule Take 1 capsule (2 mg total) by mouth 4 (four) times a day as needed for diarrhea 12/11/19 25 Active polyethylene glycol (MIRALAX) 17 gram packetIndicatio ns:constipation Take 1 packet (17 g total) by mouth daily as needed for constipation 12/11/19 25 Active ALPRAZolam (XANAX) 1 mg tablet Take 1 tablet (1 mg total) by mouth 4 (four) times a day Active spironolactone (ALDACTONE) 25 mg tablet 01/21/20 25 Active fluconazole (DIFLUCAN) 150 mg tablet 02/03/20 25 Active ALPRAZolam (XANAX) 0.5 mg tabletIndicatio ns:Generalized Anxiety Disorder Take 1 tablet (0.5 mg total) by mouth 4 (four) times a day for 5 days Max of 2 mg daily 20 tablet 12/11/19 25 025 Discontin ued(Patie nt Reported) Active Problems Problem Noted Date Diagnosed Date [...] 07/13/2020 Assessment & Plan (11/09/2020 6:57 PM HUMAN RESOURCES ASSOCIATE): Impression: Chronic kidney disease which is followed by outside institution elementary reading tutor. Patient wishes to have 2nd opinion and to combine care at our hospital. Plan: Referral to [facility] [place] for further evaluation of her chronic kidney disease. Chronic eczematous otitis externa of both ears 0 03/30/2020 Other otitis externa, unspecified ear 03/30/2020 Hypertension 02/19/2019 Overview (02/19/2019): Hypertension Assessment & Plan (11/09/2020 6:55 PM HUMAN RESOURCES ASSOCIATE): Impression: Stable chronic hypertension. Plan: Medications reviewed and recommend continuing daily antihypertensive regimen as directed by patient's primary care physician. Assessment & Plan (02/19/2019 1:16 PM CDT): Stable hypertension control with use of medications. Plan: Continue management as per primary care provider. Bilateral lower extremity edema 02/19/2019 Assessment & Plan (11/09/2020 6:56 PM HUMAN RESOURCES ASSOCIATE): Impression: Chronic bilateral lower extremity edema that [...] stenosis of lumbar region 02/18/2019 Atherosclerosis of kenaitze ar sandra of both lower extremities with intermittent claudication 08/24/2018 Pain in both lower extremities 08/18/2018 Stenosis of carotid artery 07/22/2016 Overview (12/13/2016): Carotid stenosis, asymptomatic, right Assessment & Plan (11/09/2020 6:59 PM HUMAN RESOURCES ASSOCIATE): Impression: Stable asymptomatic bilateral internal carotid artery [...] Encounters Date Type Department Care Team Description 02/03/2025 2:30 PM CDT Office Visit [facility] Cardiology [address] [place] [address] Minnie Hamilton NP Chronic heart failure with preserved ejection fraction (HCC) (Primary Dx); 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, 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, with heart failure (HCC); Bilateral carotid artery stenosis 12/03/2024 9:58 AM CDT - 12/10/2024 5:42 PM CDT Hospital Encounter [place] [address] [address] [facility] [place] [address] Jaimie Romero MD Ali, MD Emely Staley Tharun, MD Singh, Supriya, MD Lopez, Sean Encinas MD Left leg cellulitis (Primary Dx); COLIN (acute kidney injury) [N17.9]; Chronic heart failure with preserved ejection fraction (HCC) [I50.32]; Depression, unspecified depression type [F32.A]; Hyperkalemia [E87.5]; Primary hypertension [I10]; Acute kidney injury superimposed on chronic kidney disease Discharge Disposition: Discharge to [facility] 11/19/2024 Orders Only [facility] [address] [place] [phone] Los Escobar MD Occlusion of right carotid artery (Primary Dx); Stenosis of left carotid artery 11/18/2024 11:00 AM CDT Office Visit [facility] [address] [place] [address] [place] [phone] Polina Santiago PA Occlusion and stenosis of bilateral carotid arteries (Primary Dx); Mixed hyperlipidemia; Primary hypertension from Last 3 Months Immunizations Immunization Administration [...] materials from doctor or pharmacy Never 10/22/2024 [employer] Utilities Answer Date Recorded In the past 12 months has th e [employer], gas, oil, or water [employer] threatened to shut off services in your [...] 12/03/2024 How often do you attend chur or hindu services? Never 12/03/2024 Do you belong to any clubs o r organizations such as voodoo groups, unions, fraternal or athletic groups, or [...] place to sleep or slept in a retirement (including now)? No 05/09/2023 PHQ-9 Answer Date [...] any time in the past 12 m [facility], were you homeless or living in a retirement (including now)? No 12/03/2024 Personal Safety Answer Date Recorded Have you ever been in or are you currently in a harmful physical or emotional relationship or is someone making you feel afraid or unsafe? Denies 12/03/2024 Comments No Sex and Gender Information Value Date Recorded Sex Assigned at Not on file Legal Sex Female 11:52 PM HUMAN RESOURCES ASSOCIATE Gender Identity Not on file Sexual Orientation Not on file Obstetrics History Last Filed Vital Signs Vital Sign Reading Time Taken Comments Blood Pressure 122/50 02/03/2025 2:25 PM CDT Pulse 82 02/03/2025 2:25 PM CDT Temperature 36.8 C (98.2 F) 12/10/2024 3:12 PM CDT Respiratory Rate 16 12/10/2024 3:12 PM CDT Oxygen Saturation 96% 02/03/2025 2:25 PM CDT Inhaled Oxygen Concentration - - Weight 104.3 kg (230 lb) 02/03/2025 2:25 PM CDT per pt Height 167.6 cm (5' 6) 02/03/2025 2:25 PM CDT Body Mass Index 37.12 02/03/2025 2:25 PM CDT Plan of Treatment Health Maintenance [...] AUTO DIFFERENTIAL STAT 12/03/2024 10:16 AM CDT from Last 3 Months Results * (ABNORMAL) eGFR (12/10/2024 3:13 AM CDT) [facility] eGFR 31(L) >=60 mL/min/1. 73 m2 Comment: [...] was last reviewed 2021. Testing performed by: [facility], [address] [place] [address]., [address] Blood 12/10/2024 3:13 AM CDT 12/10/2024 3:18 AM CDT us Nika Chowdhury NP LAB BLOOD ORDERABLES Final Re sult [facility] [address] [facility] Department [place] [address] * (ABNORMAL) Differential, auto (12/10/2024 3:13 AM CDT) Pathologist [facility] Neutrophil abs 6.87(H) 1.50 - 6.50 K/cumm Comment:Testing performed by : [address] [address] Imm gran abs 0.12(H) 0.00 - 0.10 K/cumm [facility] Comment:Testing performed by : [address], [place]., [address] Lymphocyte abs 1.69 0.80 - 3.30 K/cumm [facility] Comment:Testing performed by : [address], [place]., [address] Monocyte abs 0.90(H) 0.20 - 0.80 K/cumm [facility] Comment:Testing performed by : [address] [address] Eosinophil abs 0.18 0.00 - 0.50 K/cumm [facility] Comment:Testing performed by : [address] [address] Basophil abs 0.05 0.00 - 0.10 K/cumm [facility] Comment:Testing performed by : [address] [address] Neutrophil pct 70.1 % [facility] Comment: Interpretive Data Percent cell count reference ranges are not reported, since discordance with absolute values may lead to misinterpretation of CBC data. Current Interpretive Data was last revised on 2017. Testing performed by: [address] [address] Imm gran pct 1.2 % [facility] Comment: Interpretive Data Percent cell count reference ranges are not reported, since discordance with absolute values may lead to misinterpretation of CBC data. Current Interpretive Data was last revised on 2017. Testing performed by: [address] [address] Lymphocyte pct 17.2 % [facility] Comment: Interpretive Data Percent cell count reference ranges are not reported, since discordance with absolute values may lead to misinterpretation of CBC data. Current Interpretive Data was last revised on 2017. Testing performed by: [address] [address] Monocyte pct 9.2 % [facility] Comment: Interpretive Data Percent cell count reference ranges are not reported, since discordance with absolute values may lead to misinterpretation of CBC data. Current Interpretive Data was last revised on 2017. Testing performed by: [address] [address] Eosinophil pct 1.8 % [facility] Comment: Interpretive Data Percent cell count reference ranges are not reported, since discordance with absolute values may lead to misinterpretation of CBC data. Current Interpretive Data was last revised on 2017. Testing performed by: [address] [address] Basophil pct 0.5 % [facility] Comment: Interpretive Data Percent cell count reference ranges are not reported, since discordance with absolute values may lead to misinterpretation of CBC data. Current Interpretive Data was last revised on 2017. Testing performed by: [address] [address] Blood 12/10/2024 3:13 AM CDT 12/10/2024 3:18 AM CDT us Nika Chowdhury NP LAB BLOOD ORDERABLES Final Re sult [facility] [address] [facility] Department of Laboratories [place], [place] [id number] * (ABNORMAL) CBC with auto differential (12/10/2024 3:13 AM CDT) Pathologist [facility] WBC 9.81 3.80 - 9.90 K/cumm Comment:Testing performed by : [address] [address] Hgb 9.9(L) 11.9 - 15.5 g/dL [facility] Comment:Testing performed by : [address] [address] Hct 29.6(L) 35.6 - 45.5 % [facility] Comment:Testing performed by : [address] [address] Plt 397 150 - 400 K/cumm [facility] Comment:Testing performed by : [address] [address] MPV 8.5(L) 9.1 - 12.3 fL [facility] Comment:Testing performed by : [address] [address] RBC 3.47(L) 3.90 - 5.20 M/cumm [facility] Comment:Testing performed by : [address] [address] MCV 85.3 81.3 - 96.4 fL [facility] Comment:Testing performed by : [address] [address] MCH 28.5 27.1 - 33.3 pg [facility] Comment:Testing performed by : [address] [address] MCHC 33.4 32.3 - 35.7 g/dL [facility] Comment:Testing performed by : [address], [address] RDW CV 14.5 11.1 - 14.9 % [facility] Comment:Testing performed by : [address], [address] RDW SD 44.8 35.7 - 48.1 fL [facility] Comment:Testing performed by : [address] [address] NRBC abs 0.00 0.00 - 0.01 K/cumm [facility] Comment:Testing performed by : [address] [address] Blood 12/10/2024 3:13 AM CDT 12/10/2024 3:18 AM CDT us Nika Chowdhury NP LAB BLOOD ORDERABLES Final Re sult [facility] [address] [facility] Department [place] [address] * (ABNORMAL) Basic metabolic panel (12/10/2024 3:13 AM CDT) Sodium 133(L) 135 - 145 mmol/L Comment:Testing performed by : [facility], [address] [place] [address]., [address] Potassium, pl 3.9 3.3 - 4.9 mmol/L [facility] Comment:Testing performed by : [address], [place]., [address] Chloride 95(L) 97 - 110 mmol/L [facility] Comment:Testing performed by : [address], [place]., [address] CO2 27 22 - 32 mmol/L [facility] Comment:Testing performed by : [address], [place]., [address] Anion gap 11 2 - 15 mmol/L [facility] Comment:Testing performed by : [address], [place]., [address] BUN 25 6 - 25 mg/dL [facility] Comment:Testing performed by : [address], [place]., [address] Creatinine 1.57(H) 0.60 - 1.10 mg/dL [facility] Comment:Testing performed by : [address], [place]., [address] Glucose 116 70 - 199 mg/dL [facility] Comment: Interpretive Data Fasting glucose >/= [...] was last revised 2022. Testing performed by: [address] [address] Calcium 9.5 8.5 - 10.3 mg/dL [facility] Comment:Testing performed by : [address] [address] Blood 12/10/2024 3:13 AM CDT 12/10/2024 3:18 AM CDT us Nika Chowdhury NP LAB BLOOD ORDERABLES Final Re sult [facility] [address] [facility] Department [place] [address] * XR Tibia Fibula Left 2 Views [...] Teddy Mei M.D. KR: PHAM Report ID: [id number] Reading Location: [place] [address] Procedure Note Teddy Mei MD - 12/09/2024 [...] 2:25 PM - Electronically signed by Teddy NATH: PHAM Report ID: [id number] Reading Location: [id number] us Sean Ngo MD IMG XR PROCEDURES [...] was last reviewed 2021. Testing performed by: [address] [address] Blood 12/09/2024 4:02 AM CDT 12/09/2024 4:50 AM CDT us Nika Chowdhury MEDICAL EDUCATION COORDINATOR LAB BLOOD ORDERABLES Final Re sult [facility] [address] [facility] Department [place] [address] * (ABNORMAL) Differential, auto (12/09/2024 4:02 AM CDT) Neutrophil abs 6.59(H) 1.50 - 6.50 K/cumm Comment:Testing performed by : [address] [address] Imm gran abs 0.19(H) 0.00 - 0.10 K/cumm [facility] Comment:Testing performed by : [address], [place]., [address] Lymphocyte abs 1.70 0.80 - 3.30 K/cumm [facility] Comment:Testing performed by : [address], [place]., [address] Monocyte abs 0.92(H) 0.20 - 0.80 K/cumm [facility] Comment:Testing performed by : [address], [place]., [address] Eosinophil abs 0.25 0.00 - 0.50 K/cumm [facility] Comment:Testing performed by : [address], [place]., [address] Basophil abs 0.07 0.00 - 0.10 K/cumm [facility] Comment:Testing performed by : [address] [address] Neutrophil pct 67.7 % [facility] Comment: Interpretive Data Percent cell count reference ranges are not reported, since discordance with absolute values may lead to misinterpretation of CBC data. Current Interpretive Data was last revised on 2017. Testing performed by: [address] [address] Imm gran pct 2.0 % [facility] Comment: Interpretive Data Percent cell count reference ranges are not reported, since discordance with absolute values may lead to misinterpretation of CBC data. Current Interpretive Data was last revised on 2017. Testing performed by: [address] [address] Lymphocyte pct 17.5 % [facility] Comment: Interpretive Data Percent cell count reference ranges are not reported, since discordance with absolute values may lead to misinterpretation of CBC data. Current Interpretive Data was last revised on 2017. Testing performed by: [address] [address] Monocyte pct 9.5 % [facility] Comment: Interpretive Data Percent cell count reference ranges are not reported, since discordance with absolute values may lead to misinterpretation of CBC data. Current Interpretive Data was last revised on 2017. Testing performed by: [address] [address] Eosinophil pct 2.6 % [facility] Comment: Interpretive Data Percent cell count reference ranges are not reported, since discordance with absolute values may lead to misinterpretation of CBC data. Current Interpretive Data was last revised on 2017. Testing performed by: [address] [address] Basophil pct 0.7 % [facility] Comment: Interpretive Data Percent cell count reference ranges are not reported, since discordance with absolute values may lead to misinterpretation of CBC data. Current Interpretive Data was last revised on 2017. Testing performed by: [address] [address] Blood 12/09/2024 4:02 AM CDT 12/09/2024 4:49 AM CDT us Nika Chowdhury NP LAB BLOOD ORDERABLES Final Re sult [facility] [address] [facility] Department [place] [address] * (ABNORMAL) CBC with auto differential (12/09/2024 4:02 AM CDT) WBC 9.72 3.80 - 9.90 K/cumm Comment:Testing performed by : [address] [address] Hgb 10.1(L) 11.9 - 15.5 g/dL [facility] Comment:Testing performed by : [address] [address] Hct 30.9(L) 35.6 - 45.5 % [facility] Comment:Testing performed by : [address] [address] Plt 442(H) 150 - 400 K/cumm [facility] Comment:Testing performed by : [address] [address] MPV 9.3 9.1 - 12.3 fL [facility] Comment:Testing performed by : [address] [place] [address] RBC 3.58(L) 3.90 - 5.20 M/cumm [facility] Comment:Testing performed by : [address], [address] MCV 86.3 81.3 - 96.4 fL [facility] Comment:Testing performed by : [address], [address] MCH 28.2 27.1 - 33.3 pg [facility] Comment:Testing performed by : [address], [address] MCHC 32.7 32.3 - 35.7 g/dL [facility] Comment:Testing performed by : [address], [address] RDW CV 14.6 11.1 - 14.9 % [facility] Comment:Testing performed by : [address], [address] RDW SD 45.8 35.7 - 48.1 fL [facility] Comment:Testing performed by : [address], [address] NRBC abs 0.00 0.00 - 0.01 K/cumm [facility] Comment:Testing performed by : [address], [address] Blood 12/09/2024 4:02 AM CDT 12/09/2024 4:49 AM CDT Nika Chowdhury MEDICAL EDUCATION COORDINATOR LAB BLOOD ORDERABLES Final Re sult [facility] [address] [facility] Department [place] [address] * (ABNORMAL) Basic metabolic panel (12/09/2024 4:02 AM CDT) Sodium 135 135 - 145 mmol/L Comment:Testing performed by : [address], [address] Potassium, pl 3.8 3.3 - 4.9 mmol/L [facility] Comment:Testing performed by : [address] [address] Chloride 95(L) 97 - 110 mmol/L [facility] Comment:Testing performed by : [address] [address] CO2 28 22 - 32 mmol/L [facility] Comment:Testing performed by : [address] [address] Anion gap 12 2 - 15 mmol/L [facility] Comment:Testing performed by : [address] [address] BUN 28(H) 6 - 25 mg/dL [facility] Comment:Testing performed by : [address] [address] Creatinine 1.81(H) 0.60 - 1.10 mg/dL [facility] Comment:Testing performed by : [address] [address] Glucose 105 70 - 199 mg/dL [facility] [...] was last revised 2022. Testing performed by: [address] [address] Calcium 9.6 8.5 - 10.3 mg/dL [facility] Comment:Testing performed by : [address] [address] Blood 12/09/2024 4:02 AM CDT 12/09/2024 4:49 AM CDT us Nika Chowdhury NP LAB BLOOD ORDERABLES Final Re sult [facility] [address] [facility] [place] [address] * (ABNORMAL) eGFR (12/08/2024 4:44 AM CDT) Pathologist [facility] eGFR 26(L) >=60 mL/min/1. 73 m2 Comment: [...] was last reviewed 2021. Testing performed by: [address] [address] Blood 12/08/2024 4:44 AM CDT 12/08/2024 5:25 AM CDT us Nika Chowdhury NP LAB BLOOD ORDERABLES Final Re sult [facility] [address] [facility] Department [place] [address] * (ABNORMAL) Differential, auto (12/08/2024 4:44 AM CDT) Pathologist [facility] Neutrophil abs 6.92(H) 1.50 - 6.50 K/cumm Comment:Testing performed by : [address] [address] Imm gran abs 0.24(H) 0.00 - 0.10 K/cumm [facility] Comment:Testing performed by : [address] [address] Lymphocyte abs 1.61 0.80 - 3.30 K/cumm [facility] Comment:Testing performed by : [address], [place]., [address] Monocyte abs 0.99(H) 0.20 - 0.80 K/cumm [facility] Comment:Testing performed by : [address], [place]., [address] Eosinophil abs 0.20 0.00 - 0.50 K/cumm [facility] Comment:Testing performed by : [address], [place]., [address] Basophil abs 0.06 0.00 - 0.10 K/cumm [facility] Comment:Testing performed by : [address] [address] Neutrophil pct 69.0 % [facility] Comment: Interpretive Data Percent cell count reference ranges are not reported, since discordance with absolute values may lead to misinterpretation of CBC data. Current Interpretive Data was last revised on 2017. Testing performed by: [address] [address] Imm gran pct 2.4 % [facility] Comment: Interpretive Data Percent cell count reference ranges are not reported, since discordance with absolute values may lead to misinterpretation of CBC data. Current Interpretive Data was last revised on 2017. Testing performed by: [address] [address] Lymphocyte pct 16.1 % [facility] Comment: Interpretive Data Percent cell count reference ranges are not reported, since discordance with absolute values may lead to misinterpretation of CBC data. Current Interpretive Data was last revised on 2017. Testing performed by: [address] [address] Monocyte pct 9.9 % [facility] Comment: Interpretive Data Percent cell count reference ranges are not reported, since discordance with absolute values may lead to misinterpretation of CBC data. Current Interpretive Data was last revised on 2017. Testing performed by: [address] [address] Eosinophil pct 2.0 % [facility] Comment: Interpretive Data Percent cell count reference ranges are not reported, since discordance with absolute values may lead to misinterpretation of CBC data. Current Interpretive Data was last revised on 2017. Testing performed by: [address] [address] Basophil pct 0.6 % [facility] Comment: Interpretive Data Percent cell count reference ranges are not reported, since discordance with absolute values may lead to misinterpretation of CBC data. Current Interpretive Data was last revised on 2017. Testing performed by: [address] [address] Blood 12/08/2024 4:44 AM CDT 12/08/2024 5:32 AM CDT us Nika Chowdhury NP LAB BLOOD ORDERABLES Final Re sult [facility] [address] [facility] [place] [address] * (ABNORMAL) CBC with auto differential (12/08/2024 4:44 AM CDT) WBC 10.02(H) 3.80 - 9.90 K/cumm Comment:Testing performed by : [address] [address] Hgb 10.8(L) 11.9 - 15.5 g/dL [facility] Comment:Testing performed by : [address] [address] Hct 32.5(L) 35.6 - 45.5 % [facility] Comment:Testing performed by : [address] [address] Plt 466(H) 150 - 400 K/cumm [facility] Comment:Testing performed by : [address] [address] MPV 9.0(L) 9.1 - 12.3 fL [facility] Comment:Testing performed by : [address] [address] RBC 3.78(L) 3.90 - 5.20 M/cumm [facility] Comment:Testing performed by : [address] [address] MCV 86.0 81.3 - 96.4 fL [facility] Comment:Testing performed by : [address] [address] MCH 28.6 27.1 - 33.3 pg [facility] Comment:Testing performed by : [address] [address] MCHC 33.2 32.3 - 35.7 g/dL [facility] Comment:Testing performed by : [address] [address] [address] RDW CV 14.7 11.1 - 14.9 % HANNAH LEA Comment:Testing performed by : [address] [address] RDW SD 46.1 35.7 - 48.1 fL HANNAH LEA Comment:Testing performed by : [address] [address] NRBC abs 0.00 0.00 - 0.01 K/cumm HANNAH LEA Comment:Testing performed by : [address] [address] Blood 12/08/2024 4:44 AM CDT 12/08/2024 5:32 AM CDT Nika Chowdhury NP LAB BLOOD ORDERABLES Final Re sult HANNAH [address] [facility] Department of Laboratories [place], [place] [id number] * (ABNORMAL) Basic metabolic panel (12/08/2024 4:44 AM CDT) Sodium 135 135 - 145 mmol/L Comment:Testing performed by : [address] [address] Potassium, pl 4.0 3.3 - 4.9 mmol/L HANNAH LEA Comment:Testing performed by : [address], [address] Chloride 95(L) 97 - 110 mmol/L HANNAH Comment:Testing performed by : [address] [address] CO2 28 22 - 32 mmol/L HANNAH Comment:Testing performed by : [address] [address] Anion gap 12 2 - 15 mmol/L HANNAH Comment:Testing performed by : [address] [address] BUN 26(H) 6 - 25 mg/dL HANNAH Comment:Testing performed by : [address] [address] Creatinine 1.83(H) 0.60 - 1.10 mg/dL HANNAH Comment:Testing performed by : [address] [address] Glucose 113 70 - 199 mg/dL HANNAH [...] was last revised 2022. Testing performed by: [address] [address] Calcium 9.6 8.5 - 10.3 mg/dL HANNAH Comment:Testing performed by : [address] [address] Blood 12/08/2024 4:44 AM CDT 12/08/2024 5:25 AM CDT us Nika Chowdhury NP LAB BLOOD ORDERABLES Final Re sult HANNAH [address] [facility] Department [place] [address] * (ABNORMAL) eGFR (12/07/2024 4:30 AM CDT) [...] was last reviewed 2021. Testing performed by: [address] [address] Blood 12/07/2024 4:30 AM CDT 12/07/2024 5:09 AM CDT us Nika Chowdhury NP LAB BLOOD ORDERABLES Final Re [facility]ult [facility] Department [place] [address] * (ABNORMAL) Differential, auto (12/07/2024 4:30 AM CDT) Neutrophil abs 7.8(H) 1.5 - 6.5 K/cumm Comment:Testing performed by : [address] [address] Imm gran abs 0.2(H) 0.0 - 0.1 K/cumm HANNAH LEA Comment:Testing performed by : [address] [address] Lymphocyte abs 1.5 0.8 - 3.3 K/cumm HANNAH Comment:Testing performed by : [facility], [address] [place] [address], [place]., [address] Monocyte abs 1.1(H) 0.2 - 0.8 K/cumm [facility] Comment:Testing performed by : [facility], [address] [place] [address], [place]., [address] Eosinophil abs 0.4 0.0 - 0.5 K/cumm [facility] Comment:Testing performed by : [address], [place]., [address] Basophil abs 0.1 0.0 - 0.1 K/cumm [facility] Comment:Testing performed by : [address] [address] Neutrophil pct 71.0 % [facility] Comment: Interpretive Data Percent cell count reference ranges are not reported, since discordance with absolute values may lead to misinterpretation of CBC data. Current Interpretive Data was last revised on 2017. Testing performed by: [address] [address] Imm gran pct 2.0 % [facility] Comment: Interpretive Data Percent cell count reference ranges are not reported, since discordance with absolute values may lead to misinterpretation of CBC data. Current Interpretive Data was last revised on 2017. Testing performed by: [address] [address] Lymphocyte pct 13.6 % [facility] Comment: Interpretive Data Percent cell count reference ranges are not reported, since discordance with absolute values may lead to misinterpretation of CBC data. Current Interpretive Data was last revised on 2017. Testing performed by: [address] [address] Monocyte pct 9.6 % [facility] Comment: Interpretive Data Percent cell count reference ranges are not reported, since discordance with absolute values may lead to misinterpretation of CBC data. Current Interpretive Data was last revised on 2017. Testing performed by: [address] [address] Eosinophil pct 3.2 % [facility] Comment: Interpretive Data Percent cell count reference ranges are not reported, since discordance with absolute values may lead to misinterpretation of CBC data. Current Interpretive Data was last revised on 2017. Testing performed by: [address] [address] Basophil pct 0.6 % HANNAH LEA Comment: Interpretive Data Percent cell count reference ranges are not reported, since discordance with absolute values may lead to misinterpretation of CBC data. Current Interpretive Data was last revised on 2017. Testing performed by: [address] [address] Blood 12/07/2024 4:30 AM CDT 12/07/2024 5:18 AM CDT us Nika Chowdhury NP LAB BLOOD ORDERABLES Final Re sult HANNAH LEA [facility] Department [place] [address] * (ABNORMAL) CBC with auto differential (12/07/2024 4:30 AM CDT) WBC 11.0(H) 3.8 - 9.9 K/cumm Comment:Testing performed by : [address] [address] Hgb 10.4(L) 11.9 - 15.5 g/dL HANNAH LEA Comment:Testing performed by : [address] [address] Hct 32.4(L) 35.6 - 45.5 % HANNAH LEA Comment:Testing performed by : [address] [address] Plt 440(H) 150 - 400 K/cumm HANNAH LEA Comment:Testing performed by : [address] [address] MPV 9.5 9.1 - 12.3 fL HANNAH LEA Comment:Testing performed by : [address] [address] RBC 3.75(L) 3.90 - 5.20 M/cumm HANNAH LEA Comment:Testing performed by : [address] [address] MCV 86.4 81.3 - 96.4 fL HANNAH LEA Comment:Testing performed by : [address] [address] MCH 27.7 27.1 - 33.3 pg HANNAH LEA Comment:Testing performed by : [address] [address] MCHC 32.1(L) 32.3 - 35.7 g/dL HANNAH LEA Comment:Testing performed by : [address] [address] RDW CV 14.7 11.1 - 14.9 % HANNAH LEA Comment:Testing performed by : [address] [address] RDW SD 46.4 35.7 - 48.1 fL HANNAH LEA Comment:Testing performed by : [address] [address] NRBC abs 0.00 0.00 - 0.01 K/cumm HANNAH LEA Comment:Testing performed by : [address] [address] Blood 12/07/2024 4:30 AM CDT 12/07/2024 5:18 AM CDT us Nika Chowdhury NP LAB BLOOD ORDERABLES Final Re sult HANNAH [address] [facility] Department of Laboratories [place], [place] [id number] * (ABNORMAL) Basic metabolic panel (12/07/2024 4:30 AM CDT) Sodium 138 135 - 145 mmol/L Comment:Testing performed by : [address] [address] Potassium, pl 4.3 3.3 - 4.9 mmol/L HANNAH LEA Comment:Testing performed by : [address] [address] Chloride 97 97 - 110 mmol/L HANNAH LEA Comment:Testing performed by : [address] [place]., [address] CO2 28 22 - 32 mmol/L HANNAH Comment:Testing performed by : [address] [address] Anion gap 13 2 - 15 mmol/L HANNAH Comment:Testing performed by : [address] [address] BUN 24 6 - 25 mg/dL HANNAH Comment:Testing performed by : [address] [address] Creatinine 1.49(H) 0.60 - 1.10 mg/dL HANNAH Comment:Testing performed by : [address] [address] Glucose 114 70 - 199 mg/dL HANNAH [...] was last revised 2022. Testing performed by: [address] [address] Calcium 9.8 8.5 - 10.3 mg/dL HANNAH Comment:Testing performed by : [address] [address] Blood 12/07/2024 4:30 AM CDT 12/07/2024 5:09 AM CDT us Nika Chowdhury NP LAB BLOOD ORDERABLES Final Re sult HANNAH LEA [address] [facility] Department [place] [address] * (ABNORMAL) eGFR (12/06/2024 5:07 AM CDT) Pathologist [facility] eGFR 33(L) >=60 mL/min/1. 73 m2 Comment: [...] was last reviewed 2021. Testing performed by: [address] [address] Blood 12/06/2024 5:07 AM CDT 12/06/2024 5:49 AM CDT us Nika Chowdhury NP LAB BLOOD ORDERABLES Final Re sult HANNAH LEONORA [address] [facility] Department of Laboratories [place], [place] [id number] * (ABNORMAL) Differential, auto (12/06/2024 5:07 AM CDT) Pathologist [facility] Neutrophil abs 6.1 1.5 - 6.5 K/cumm Comment:Testing performed by : [address] [address] Imm gran abs 0.2(H) 0.0 - 0.1 K/cumm HANNAH LEA Comment:Testing performed by : [address] [address] Lymphocyte abs 1.6 0.8 - 3.3 K/cumm HANNAH LEA Comment:Testing performed by : [address] [address] Monocyte abs 0.9(H) 0.2 - 0.8 K/cumm [facility] Comment:Testing performed by : [address] [address] Eosinophil abs 0.4 0.0 - 0.5 K/cumm [facility] Comment:Testing performed by : [address] [address] Basophil abs 0.1 0.0 - 0.1 K/cumm [facility] Comment:Testing performed by : [address] [address] Neutrophil pct 65.2 % [facility] Comment: Interpretive Data Percent cell count reference ranges are not reported, since discordance with absolute values may lead to misinterpretation of CBC data. Current Interpretive Data was last revised on 2017. Testing performed by: [address] [address] Imm gran pct 2.4 % [facility] Comment: Interpretive Data Percent cell count reference ranges are not reported, since discordance with absolute values may lead to misinterpretation of CBC data. Current Interpretive Data was last revised on 2017. Testing performed by: [address] [address] Lymphocyte pct 17.4 % [facility] Comment: Interpretive Data Percent cell count reference ranges are not reported, since discordance with absolute values may lead to misinterpretation of CBC data. Current Interpretive Data was last revised on 2017. Testing performed by: [address] [address] Monocyte pct 9.9 % [facility] Comment: Interpretive Data Percent cell count reference ranges are not reported, since discordance with absolute values may lead to misinterpretation of CBC data. Current Interpretive Data was last revised on 2017. Testing performed by: [address] [address] Eosinophil pct 4.5 % [facility] Comment: Interpretive Data Percent cell count reference ranges are not reported, since discordance with absolute values may lead to misinterpretation of CBC data. Current Interpretive Data was last revised on 2017. Testing performed by: [address] [address] Basophil pct 0.6 % HANNAH Comment: Interpretive Data Percent cell count reference ranges are not reported, since discordance with absolute values may lead to misinterpretation of CBC data. Current Interpretive Data was last revised on 2017. Testing performed by: [address] [address] Blood 12/06/2024 5:07 AM CDT 12/06/2024 5:49 AM CDT us Nika Chowdhury NP LAB BLOOD ORDERABLES Final Re sult HANNAH [address] [facility] Department [place] [address] * (ABNORMAL) CBC with auto differential (12/06/2024 5:07 AM CDT) WBC 9.3 3.8 - 9.9 K/cumm Comment:Testing performed by : [address] [address] Hgb 9.7(L) 11.9 - 15.5 g/dL HANNAH Comment:Testing performed by : [address] [address] Hct 30.0(L) 35.6 - 45.5 % HANNAH Comment:Testing performed by : [address] [address] Plt 410(H) 150 - 400 K/cumm HANNAH Comment:Testing performed by : [address] [address] MPV 9.1 9.1 - 12.3 fL HANNAH Comment:Testing performed by : [address] [address] RBC 3.43(L) 3.90 - 5.20 M/cumm HANNAH Comment:Testing performed by : [address] [address] MCV 87.5 81.3 - 96.4 fL HANNAH Comment:Testing performed by : [address] [address] MCH 28.3 27.1 - 33.3 pg HANNAH LEA Comment:Testing performed by : [address] [address] MCHC 32.3 32.3 - 35.7 g/dL HANNAH LEA Comment:Testing performed by : [address] [address] RDW CV 15.0(H) 11.1 - 14.9 % HANNAH LEA Comment:Testing performed by : [address] [address] RDW SD 47.5 35.7 - 48.1 fL HANNAH LEA Comment:Testing performed by : [address] [address] NRBC abs 0.00 0.00 - 0.01 K/cumm HANNAH LEA Comment:Testing performed by : [address] [address] Blood 12/06/2024 5:07 AM CDT 12/06/2024 5:49 AM CDT us Nika Chowdhury NP LAB BLOOD ORDERABLES Final Re sult HANNAH LEA [address] [facility] Department of Laboratories [place], [place] [id number] * (ABNORMAL) Basic metabolic panel (12/06/2024 5:07 AM CDT) Pathologist [facility] Sodium 137 135 - 145 mmol/L Comment:Testing performed by : [address] [address] Potassium, pl 4.4 3.3 - 4.9 mmol/L HANNAH LEA Comment:Testing performed by : [address] [address] Chloride 97 97 - 110 mmol/L HANNAH LEA Comment:Testing performed by : [address] [address] CO2 30 22 - 32 mmol/L HANNAH LEA Comment:Testing performed by : [address] [place]., [address] Anion gap 10 2 - 15 mmol/L HANNAH Comment:Testing performed by : [address] [address] BUN 22 6 - 25 mg/dL HANNAH Comment:Testing performed by : [address] [address] Creatinine 1.50(H) 0.60 - 1.10 mg/dL HANNAH Comment:Testing performed by : [address] [address] Glucose 108 70 - 199 mg/dL HANNAH [...] was last revised 2022. Testing performed by: [address] [address] Calcium 9.1 8.5 - 10.3 mg/dL HANNAH Comment:Testing performed by : [address] [address] Blood 12/06/2024 5:07 AM CDT 12/06/2024 5:49 AM CDT us Nika Chowdhury NP LAB BLOOD ORDERABLES Final Re sult HANNAH [address] [facility] Department [place] [address] * (ABNORMAL) eGFR (12/05/2024 4:58 [...] was last reviewed 2021. Testing performed by: [address] [address] Blood 12/05/2024 4:58 AM CDT 12/05/2024 5:12 AM CDT us Nika Chowdhury NP LAB BLOOD ORDERABLES Final Re sult HANNAH [address] [facility] Department [place] [address] * (ABNORMAL) Differential, auto (12/05/2024 4:58 AM CDT) Neutrophil abs 7.3(H) 1.5 - 6.5 K/cumm Comment:Testing performed by : [address] [address] Imm gran abs 0.2(H) 0.0 - 0.1 K/cumm HANNAH LEA Comment:Testing performed by : [address] [address] Lymphocyte abs 1.3 0.8 - 3.3 K/cumm HANNAH LEA Comment:Testing performed by : [address] [address] Monocyte abs 1.0(H) 0.2 - 0.8 K/cumm HANNAH LEA Comment:Testing performed by : [address] [address] Eosinophil abs 0.4 0.0 - 0.5 K/cumm [facility] Comment:Testing performed by : [address] [address] Basophil abs 0.0 0.0 - 0.1 K/cumm [facility] Comment:Testing performed by : [address] [address] Neutrophil pct 71.4 % [facility] Comment: Interpretive Data Percent cell count reference ranges are not reported, since discordance with absolute values may lead to misinterpretation of CBC data. Current Interpretive Data was last revised on 2017. Testing performed by: [address] [address] Imm gran pct 1.5 % [facility] Comment: Interpretive Data Percent cell count reference ranges are not reported, since discordance with absolute values may lead to misinterpretation of CBC data. Current Interpretive Data was last revised on 2017. Testing performed by: [address] [address] Lymphocyte pct 12.9 % [facility] Comment: Interpretive Data Percent cell count reference ranges are not reported, since discordance with absolute values may lead to misinterpretation of CBC data. Current Interpretive Data was last revised on 2017. Testing performed by: [address] [address] Monocyte pct 10.0 % [facility] Comment: Interpretive Data Percent cell count reference ranges are not reported, since discordance with absolute values may lead to misinterpretation of CBC data. Current Interpretive Data was last revised on 2017. Testing performed by: [address] [address] Eosinophil pct 3.8 % [facility] Comment: Interpretive Data Percent cell count reference ranges are not reported, since discordance with absolute values may lead to misinterpretation of CBC data. Current Interpretive Data was last revised on 2017. Testing performed by: [address] [address] Basophil pct 0.4 % [facility] Comment: Interpretive Data Percent cell count reference ranges are not reported, since discordance with absolute values may lead to misinterpretation of CBC data. Current Interpretive Data was last revised on 2017. Testing performed by: [address] [address] Blood 12/05/2024 4:58 AM CDT 12/05/2024 5:12 AM CDT Nika Chowdhury NP LAB BLOOD ORDERABLES Final Re sult HANNAH [address] [facility] Department [place] [address] * (ABNORMAL) CBC with auto differential (12/05/2024 4:58 AM CDT) WBC 10.3(H) 3.8 - 9.9 K/cumm Comment:Testing performed by : [address] [address] Hgb 9.1(L) 11.9 - 15.5 g/dL HANNAH Comment:Testing performed by : [address] [address] Hct 28.4(L) 35.6 - 45.5 % HANNAH Comment:Testing performed by : [address] [address] Plt 396 150 - 400 K/cumm HANNAH Comment:Testing performed by : [address] [address] MPV 9.1 9.1 - 12.3 fL HANNAH Comment:Testing performed by : [address] [address] RBC 3.23(L) 3.90 - 5.20 M/cumm HANNAH Comment:Testing performed by : [address] [address] MCV 87.9 81.3 - 96.4 fL HANNAH Comment:Testing performed by : [address] [address] MCH 28.2 27.1 - 33.3 pg HANNAH LEA Comment:Testing performed by : [address] [address] MCHC 32.0(L) 32.3 - 35.7 g/dL HANNAH LEA Comment:Testing performed by : [address] [address] RDW CV 15.0(H) 11.1 - 14.9 % HANNAH LEA Comment:Testing performed by : [address] [address] RDW SD 48.8(H) 35.7 - 48.1 fL HANNAH LEA Comment:Testing performed by : [address] [address] NRBC abs 0.00 0.00 - 0.01 K/cumm HANNAH LEA Comment:Testing performed by : [address] [address] Blood 12/05/2024 4:58 AM CDT 12/05/2024 5:12 AM CDT us Nika Chowdhury NP LAB BLOOD ORDERABLES Final Re sult HANNAH [facility] Department [place] [address] * (ABNORMAL) Basic metabolic panel (12/05/2024 4:58 AM CDT) Sodium 139 135 - 145 mmol/L Comment:Testing performed by : [address] [address] Potassium, pl 4.5 3.3 - 4.9 mmol/L HANNAH LEA Comment:Testing performed by : [address] [address] Chloride 101 97 - 110 mmol/L HANNAH LEA Comment:Testing performed by : [address] [address] CO2 28 22 - 32 mmol/L HANNAH LEA Comment:Testing performed by : [address] [address] Anion gap 10 2 - 15 mmol/L HANNAH LEA Comment:Testing performed by : [address] [address] BUN 22 6 - 25 mg/dL HANNAH Comment:Testing performed by : [address] [address] Creatinine 1.42(H) 0.60 - 1.10 mg/dL HANNAH Comment:Testing performed by : [address] [address] Glucose 109 70 - 199 mg/dL HANNAH [...] was last revised 2022. Testing performed by: [address] [address] Calcium 9.3 8.5 - 10.3 mg/dL HANNAH Comment:Testing performed by : [address] [address] Blood 12/05/2024 4:58 AM CDT 12/05/2024 5:12 AM CDT Nika Chowdhury NP LAB BLOOD ORDERABLES Final Re sult HANNAH [address] [facility] Department [place] [address] * (ABNORMAL) eGFR (12/04/2024 5:05 [...] was last reviewed 2021. Testing performed by: [address] [address] Blood 12/04/2024 5:05 AM CDT 12/04/2024 5:29 AM CDT Nika Chowdhury NP LAB BLOOD ORDERABLES Final Re sult HANNAH [address] [facility] Department [place] [address] * (ABNORMAL) Differential, auto (12/04/2024 5:05 AM CDT) Neutrophil abs 6.4 1.5 - 6.5 K/cumm Comment:Testing performed by : [address] [address] Imm gran abs 0.2(H) 0.0 - 0.1 K/cumm HANNAH Comment:Testing performed by : [address] [address] Lymphocyte abs 1.2 0.8 - 3.3 K/cumm HANNAH Comment:Testing performed by : [address] [address] Monocyte abs 1.0(H) 0.2 - 0.8 K/cumm HANNAH Comment:Testing performed by : [address] [address] Eosinophil abs 0.3 0.0 - 0.5 K/cumm HANNAH Comment:Testing performed by : [address] [address] Basophil abs 0.1 0.0 - 0.1 K/cumm HANNAH Comment:Testing performed by : [address] [address] Neutrophil pct 70.2 % [facility] Comment: Interpretive Data Percent cell count reference ranges are not reported, since discordance with absolute values may lead to misinterpretation of CBC data. Current Interpretive Data was last revised on 2017. Testing performed by: [address] [address] Imm gran pct 1.7 % [facility] Comment: Interpretive Data Percent cell count reference ranges are not reported, since discordance with absolute values may lead to misinterpretation of CBC data. Current Interpretive Data was last revised on 2017. Testing performed by: [address] [address] Lymphocyte pct 12.8 % [facility] Comment: Interpretive Data Percent cell count reference ranges are not reported, since discordance with absolute values may lead to misinterpretation of CBC data. Current Interpretive Data was last revised on 2017. Testing performed by: [address] [address] Monocyte pct 11.5 % [facility] Comment: Interpretive Data Percent cell count reference ranges are not reported, since discordance with absolute values may lead to misinterpretation of CBC data. Current Interpretive Data was last revised on 2017. Testing performed by: [address] [address] Eosinophil pct 3.1 % [facility] Comment: Interpretive Data Percent cell count reference ranges are not reported, since discordance with absolute values may lead to misinterpretation of CBC data. Current Interpretive Data was last revised on 2017. Testing performed by: [address] [address] Basophil pct 0.7 % [facility] Comment: Interpretive Data Percent cell count reference ranges are not reported, since discordance with absolute values may lead to misinterpretation of CBC data. Current Interpretive Data was last revised on 2017. Testing performed by: [address] [address] Blood 12/04/2024 5:05 AM CDT 12/04/2024 5:29 AM CDT us Nika Chowdhury NP LAB BLOOD ORDERABLES Final Re sult HANNAH [address] [facility] Department [place] [address] * (ABNORMAL) CBC with auto differential (12/04/2024 5:05 AM CDT) WBC 9.1 3.8 - 9.9 K/cumm Comment:Testing performed by : [address] [address] Hgb 8.9(L) 11.9 - 15.5 g/dL HANNAH Comment:Testing performed by : [address] [address] Hct 28.5(L) 35.6 - 45.5 % HANNAH Comment:Testing performed by : [address] [address] Plt 383 150 - 400 K/cumm HANNAH Comment:Testing performed by : [address] [address] MPV 9.2 9.1 - 12.3 fL HANNAH Comment:Testing performed by : [address] [address] RBC 3.20(L) 3.90 - 5.20 M/cumm HANNAH Comment:Testing performed by : [address] [address] MCV 89.1 81.3 - 96.4 fL HANNAH Comment:Testing performed by : [address] [address] MCH 27.8 27.1 - 33.3 pg HANNAH Comment:Testing performed by : [address] [address] MCHC 31.2(L) 32.3 - 35.7 g/dL HANNAH LEA Comment:Testing performed by : [address] [address] RDW CV 15.0(H) 11.1 - 14.9 % HANNAH LEA Comment:Testing performed by : [address] [address] RDW SD 49.6(H) 35.7 - 48.1 fL HANNAH LEA Comment:Testing performed by : [address] [address] NRBC abs 0.00 0.00 - 0.01 K/cumm HANNAH Comment:Testing performed by : [address] [address] Blood 12/04/2024 5:05 AM CDT 12/04/2024 5:29 AM CDT Nika Chowdhury NP LAB BLOOD ORDERABLES Final Re sult HANNAH [address] [facility] [place] [address] * (ABNORMAL) Basic metabolic panel (12/04/2024 5:05 AM CDT) Sodium 139 135 - 145 mmol/L Comment:Testing performed by : [address] [address] Potassium, pl 4.6 3.3 - 4.9 mmol/L HANNAH LEA Comment:Testing performed by : [address] [address] Chloride 100 97 - 110 mmol/L HANNAH Comment:Testing performed by : [address] [address] CO2 28 22 - 32 mmol/L HANNAH LEA Comment:Testing performed by : [address] [address] Anion gap 11 2 - 15 mmol/L HANNAH Comment:Testing performed by : [address] [address] BUN 26(H) 6 - 25 mg/dL HANNAH LEA Comment:Testing performed by : [address] [address] Creatinine 1.30(H) 0.60 - 1.10 mg/dL HANNAH Comment:Testing performed by : [address] [address] Glucose 104 70 - 199 mg/dL HANNAH [...] was last revised 2022. Testing performed by: [address] [address] Calcium 9.0 8.5 - 10.3 mg/dL HANNAH Comment:Testing performed by : [address] [address] Blood 12/04/2024 5:05 AM CDT 12/04/2024 5:29 AM CDT us Nika Chowdhury NP LAB BLOOD ORDERABLES Final Re sult HANNAH [address] [facility] Department [place] [address] * US VEIN DUPLEX LOWER EXTREMITY LEFT LIMITED, UNILATERAL (12/03/2024 4:47 PM CDT) Anatomical Region Laterality Modality Vascular Left Ultrasound 12/03/2024 4:21 PM CDT Narrative 12/04/2024 8:56 AM CDT Lower Extremity Venous Report Patient Name: LUCILLE SEVILLA MAE : 1935 (89y 2m) Gender: F Study Date: 12/03/2024 04:21:28 PM Locator: Ariella Alonzo RDMS,[facility] Location: [id number] Order Provider: NIKA CHOWDHURY Quality: Adequate Ref Provider: NIKA CHOWDHURY PROCEDURES: Vascular Report: A non-invasive vascular imaging [...] normally to distal augmentation. Provider Notification: RUBY Chowdhury via [employer]. CONCLUSIONS: 1. There is no evidence of [...] Gender: F Study Date: 12/03/2024 04:21:28 PM Locator: Ariella Alonzo RDMS,[facility] Location:[id number] Order Provider: NIKA CHOWDHURY Quality: Adequate Ref Provider: NIKA CHOWDHURY PROCEDURES: Vascular Report: A non-invasive vascular imaging [...] responded normally to distalaugmentation. Provider Notification: RUBY Chowdhury via [employer]. CONCLUSIONS: 1. There is no evidence of deep vein thrombosis in the left lowerextremity. ATTESTATION: I have reviewed and interpreted the pertinent images and measurements ofthis study. I attest to the conclusions in the final report that is provided above. Electronically Signed By: Kristopher Escobar MD 12/04/2024 8:23:34 AM CDT us Nika Chowdhury NP IMG US PROCEDURES Final Resul t * (ABNORMAL) Urinalysis reflex to microscopic and culture Urine (12/03/2024 12:57 PM CDT) Color, ur Yellow Yellow Comment:Testing performed by : [address] [address] Clarity, ur Clear Clear HANNAH Comment:Testing performed by : [address], [place]., [address] Specific gravity, ur 1.009 1.003 - 1.030 HANNAH Comment:Testing performed by : [address] [address] pH, urine 6.5 HANNAH Comment: Interpretive Data U rine pH is affected by diet, medications, systemic acid-base disturbances, and renal tubular function. pH may affect urinary stone formation. For example, urine pH below 6.0 may help reduce the tendency for calcium phosphate stones and pH greater than 6.0 may reduce the tendency for uric acid stone formation. Source: [facility] [employer] Current Interpretive Data was last revised on 2017 Testing performed by: [address] [address] Protein, ur ql Negative Negative HANNAH Comment:Testing performed by : [address] [address] Glucose, ur ql Negative Negative HANNAH Comment:Testing performed by : [address] [address] Ketones, ur Negative Negative HANNAH Comment:Testing performed by : [address] [address] Bilirubin, ur Negative Negative HANNAH Comment:Testing performed by : [address] [address] Blood, ur Negative Negative HANNAH Comment:Testing performed by : [address] [address] Urobilinogen, ur <2.0 <2.0 mg/dL HANNAH Comment:Testing performed by : [address] [address] Nitrite, ur Negative Negative HANNAH Comment:Testing performed by : [address] [address] Leukocyte esterase, ur 3+(A) Negative CERNER Comment:Testing performed by : [facility], [address] [place] [address]., [address] UA reflex comment Reflex to microscopic UA will be performed. HANNAH Comment:Testing performed by : [facility], [address] [place] [address]., [address] Urine 12/03/2024 12:5 7 PM CDT 12/03/2024 1:01 PM CDT Narrative HANNAH - 12/03/2024 1:04 PM CDT If patient unable to urinate, straight cath Jaimie Romero MD LAB MICROBIOLOGY - GENERAL ORDERABLES Final Result Performing Organization Address City/[facility] Co de Phone Number HANNAH [address] [facility] [address] * (ABNORMAL) Urinalysis, microscopic only (12/03/2024 12:57 PM CDT) WBC, ur 11-20(A) 0 - 5 /HPF Comment:Testing performed by : [facility], [address] [place] [address]., [address] RBC, ur 0-2 0 - 2 /HPF HANNAH Comment:Testing performed by : [address] [address] Culture Reflex Comment Reflex to urine culture will be performed. HANNAH Comment:Testing performed by : [address] [address] Urine 12/03/2024 12:5 7 PM CDT 12/03/2024 1:01 PM CDT us Jaimie Romero MD LAB URINE ORDERABLES Final Result Performing Organization Address City/[facility]/ZIP Co de Phone Number HANNAH [facility] [facility] [address] * Urine culture Urine (12/03/2024 12:57 PM CDT) Report Final Report: Less than 100,000 colonies/mL (clinically insignificant growth based on current clinical standards) Comment:Testing performed by : [facility], [address] [place]., [address] Organism (CLINICALLY INSIGNIFICANT GROWTH HANNAH LEA Urine 12/03/2024 12:5 7 PM CDT 12/03/2024 4:29 PM CDT Narrative HANNAH LEA - 12/04/2024 5:30 PM CDT Urine culture reflexed based upon urinalysis results. Testing performed by [facility] ([phone]) Jaimie Romero MD LAB MICROBIOLOGY - GENERAL ORDERABLES Final Result HANNAH LEA [address] [facility] [place] [address] * Blood culture Blood Peripheral (12/03/2024 11:27 AM CDT) Report Final Report: No growth Comment:Testing performed by : [facility], [address] [place]., [address] Blood (Peripheral) 12/03/2024 11:27 AM CDT 12/03/2024 4:57 PM CDT Narrative HANNAH LEA - 12/08/2024 7:00 AM CDT From [...] performance characteristics have been verified by the [facility]. For questions about this culture, contact the Microbiology Laboratory at [phone]. Interpretive data was last revised on 24. Jaimie Romero MD LAB MICROBIOLOGY - GENERAL ORDERABLES Final Result HANNAH [address] [facility] [place] [address] * Blood culture Blood Peripheral (12/03/2024 11:27 AM CDT) Report Final Report: No growth Comment:Testing performed by : [facility], [address] [place]., [address] Blood (Peripheral) 12/03/2024 11:27 AM CDT 12/03/2024 4:57 PM CDT [facility] HANNAH - 12/08/2024 7:00 AM CDT Draw [...] performance characteristics have been verified by the [facility]. For questions about this culture, contact the Microbiology Laboratory at [phone]. Interpretive data was last revised on 24. Jaimie Romero MD LAB MICROBIOLOGY - GENERAL ORDERABLES Final Result HANNAH [facility] [place] [address] * Sepsis Lactate w/ Reflex (12/03/2024 10:16 AM CDT) Sepsis Lactate 1.7 0.7 - 2.0 mmol/L Comment:Testing performed by : [facility], [address] [place] [address]., [address] Blood 12/03/2024 10:1 6 AM CDT 12/03/2024 10:21 AM CDT Jaimie Romero MD LAB BLOOD ORDERABLES Final Result Performing Organization Address City/[facility] Co de Phone Number HANNAH [facility] [place] [address] * (ABNORMAL) eGFR (12/03/2024 10:16 AM CDT) [...] was last reviewed 2021. Testing performed by: [address] [address] Blood 12/03/2024 10:1 6 AM CDT 12/03/2024 10:21 AM CDT Jaimie Romero MD LAB BLOOD ORDERABLES Final Result [facility] [address] [facility] [place] [address] * (ABNORMAL) Differential, auto (12/03/2024 10:16 AM CDT) Neutrophil abs 8.1(H) 1.5 - 6.5 K/cumm Comment:Testing performed by : [address] [address] Imm gran abs 0.2(H) 0.0 - 0.1 K/cumm HANNAH Comment:Testing performed by : [address] [address] Lymphocyte abs 1.0 0.8 - 3.3 K/cumm HANNAH Comment:Testing performed by : [address] [address] Monocyte abs 1.0(H) 0.2 - 0.8 K/cumm HANNAH Comment:Testing performed by : [address] [address] Eosinophil abs 0.3 0.0 - 0.5 K/cumm HANNAH Comment:Testing performed by : [address] [address] Basophil abs 0.1 0.0 - 0.1 K/cumm HANNAH Comment:Testing performed by : [address] [address] Neutrophil pct 76.0 % HANNAH Comment: Interpretive Data Percent cell count reference ranges are not reported, since discordance with absolute values may lead to misinterpretation of CBC data. Current Interpretive Data was last revised on 2017. Testing performed by: [address] [address] Imm gran pct 1.4 % [facility] Comment: Interpretive Data Percent cell count reference ranges are not reported, since discordance with absolute values may lead to misinterpretation of CBC data. Current Interpretive Data was last revised on 2017. Testing performed by: [address] [address] Lymphocyte pct 9.5 % [facility] Comment: Interpretive Data Percent cell count reference ranges are not reported, since discordance with absolute values may lead to misinterpretation of CBC data. Current Interpretive Data was last revised on 2017. Testing performed by: [address] [address] Monocyte pct 9.4 % [facility] Comment: Interpretive Data Percent cell count reference ranges are not reported, since discordance with absolute values may lead to misinterpretation of CBC data. Current Interpretive Data was last revised on 2017. Testing performed by: [address] [address] Eosinophil pct 3.1 % [facility] Comment: Interpretive Data Percent cell count reference ranges are not reported, since discordance with absolute values may lead to misinterpretation of CBC data. Current Interpretive Data was last revised on 2017. Testing performed by: [address] [address] Basophil pct 0.6 % [facility] Comment: Interpretive Data Percent cell count reference ranges are not reported, since discordance with absolute values may lead to misinterpretation of CBC data. Current Interpretive Data was last revised on 2017. Testing performed by: [address] [address] Blood 12/03/2024 10:1 6 AM CDT 12/03/2024 10:21 AM CDT Jaimie Romero MD LAB BLOOD ORDERABLES Final Result HANNAH LEA [address] [facility] Department of Laboratories [place], [place] [id number] * (ABNORMAL) CBC with auto differential (12/03/2024 10:16 AM CDT) WBC 10.6(H) 3.8 - 9.9 K/cumm Comment:Testing performed by : [address], [address] Hgb 9.9(L) 11.9 - 15.5 g/dL HANNAH Comment:Testing performed by : [address] [address] Hct 31.3(L) 35.6 - 45.5 % HANNAH Comment:Testing performed by : [address] [address] Plt 384 150 - 400 K/cumm HANNAH Comment:Testing performed by : [address] [address] MPV 9.0(L) 9.1 - 12.3 fL HANNAH Comment:Testing performed by : [address], [address] RBC 3.51(L) 3.90 - 5.20 M/cumm HANNAH Comment:Testing performed by : [address] [address] MCV 89.2 81.3 - 96.4 fL CERGEMMA Comment:Testing performed by : [address], [address] MCH 28.2 27.1 - 33.3 pg CERGEMMA Comment:Testing performed by : [address] [address] MCHC 31.6(L) 32.3 - 35.7 g/dL HANNAH Comment:Testing performed by : [address], [address] RDW CV 15.2(H) 11.1 - 14.9 % HANNAH Comment:Testing performed by : [address] [address] RDW SD 49.8(H) 35.7 - 48.1 fL HANNAH Comment:Testing performed by : [address], [address] NRBC abs 0.00 0.00 - 0.01 K/cumm HANNAH Comment:Testing performed by : [address] [address] Blood 12/03/2024 10:1 6 AM CDT 12/03/2024 10:21 AM CDT Jaimie Romero MD LAB BLOOD ORDERABLES Final Result [facility] [place] [address] * Erythrocyte sedimentation rate (12/03/2024 10:16 AM CDT) Erythrocyte sedimentation rate 28 1 - 30 mm/hr Comment:Testing performed by : [address] [address] Blood 12/03/2024 10:1 6 AM CDT 12/03/2024 10:21 AM CDT Nika Chowdhury NP LAB BLOOD ORDERABLES Final Re sult Performing Organization Address [facility] Co de Phone Number [address] [place] [address] * (ABNORMAL) CRP (acute phase) (12/03/2024 10:16 AM CDT) CRP 14.5(H) <=10.0 mg/L Comment:Testing performed by : [address] [address] Blood 12/03/2024 10:1 6 AM CDT 12/03/2024 10:21 AM CDT Nika Chowdhury NP LAB BLOOD ORDERABLES Final Re sult [address] [place] [address] * (ABNORMAL) Comprehensive metabolic panel (12/03/2024 10:16 AM CDT) Sodium 137 135 - 145 mmol/L Comment:Testing performed by : [address], [place]., [address] Potassium, pl 4.7 3.3 - 4.9 mmol/L [facility] Comment:Testing performed by : [address], [place]., [address] Chloride 102 97 - 110 mmol/L HANNAH Comment:Testing performed by : [address], [place]., [address] CO2 24 22 - 32 mmol/L [facility] Comment:Testing performed by : [address], [place]., [address] Anion gap 11 2 - 15 mmol/L [facility] Comment:Testing performed by : [address], [place]., [address] BUN 25 6 - 25 mg/dL [facility] Comment:Testing performed by : [address], [place]., [address] Creatinine 1.30(H) 0.60 - 1.10 mg/dL [facility] Comment:Testing performed by : [address], [place]., [address] Glucose 158 70 - 199 mg/dL [facility] Comment: Interpretive Data Fasting glucose >/= [...] was last revised 2022. Testing performed by: [address] [address] Calcium 9.1 8.5 - 10.3 mg/dL HANNAH Comment:Testing performed by : [address] [address] Bilirubin, total 0.2 0.1 - 1.2 mg/dL HANNAH Comment:Testing performed by : [address], [place]., [address] Protein, pl 6.7 6.5 - 8.5 g/dL HANNAH LEA Comment:Testing performed by : [facility], [address] [place] [address]., [address] Albumin 3.4(L) 3.5 - 5.0 g/dL HANNAH LEA Comment:Testing performed by : [facility], [address] [place] [address]., [address] Alk phos 120 40 - 130 Units/L HANNAH Comment:Testing performed by : [facility], [address] [place] [address]., [address] ALT 13 7 - 45 Units/L HANNAH Comment:Testing performed by : [address] [address] AST 14 10 - 45 Units/L AHNNAH Comment:Testing performed by : [address] [address] Blood 12/03/2024 10:1 6 AM CDT 12/03/2024 10:21 AM CDT us Jaimie Romero MD LAB BLOOD ORDERABLES Final Result HANNAH [address] [facility] [place] [address] from Last 3 Months Insurance [facility]ARE [facility] Advance Directives For more information, please contact: [phone] Documents on File Type Date Recorded 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
--- OUTSIDE RECORDS SUMMARY | 2025-02-09 10:51 | XMS_ITS | Referral Summary ---
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, with heart failure (HCC); Bilateral carotid artery stenosis 12/03/2024 9:58 AM CDT - 12/10/2024 5:42 PM CDT Hospital Encounter [place] [address] Med Surg [facility] [place] [address] Jaimie Romero MD Ali, Md Shahin, MD Paruchuri, Tharun, MD Singh, Supriya, MD Lopez, Sean Encinas MD Left leg cellulitis (Primary Dx); COLIN (acute kidney injury) [N17.9]; Chronic heart failure with preserved ejection fraction (HCC) [I50.32]; Depression, unspecified depression type [F32.A]; Hyperkalemia [E87.5]; Primary hypertension [I10]; Acute kidney injury superimposed on chronic kidney disease Discharge Disposition: Discharge to SNF 11/19/2024 Orders Only [facility] Vascular and Vein Surgery [address] [facility] [address] [place] [address] Los Escobar MD Occlusion of right carotid artery (Primary Dx); Stenosis of left carotid artery 11/18/2024 11:00 AM CDT Office Visit [facility] Vascular and Vein Surgery [address] [place] [address] Polina Santiago PA Occlusion and stenosis of bilateral carotid arteries (Primary Dx); Mixed hyperlipidemia; Primary hypertension from Last 3 Months Allergies Active Allergy [...] 1 tablet (75 mcg total) by mouth outreach consultant before breakfast 11/21/19 21 Active ondansetron (ZOFRAN) [...] daily 20 tablet 12/11/19 25 025 Discontin ued(Barbara nt Reported) Active Problems Problem Noted Date [...] 07/13/2020 Assessment & Plan (11/09/2020 6:57 PM GARNETT MECHANIC): Impression: Chronic kidney disease which is followed by 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 Patient wishes to have 2nd opinion and to combine care at our hospital. Plan: Referral to [facility] [place] for further evaluation of her chronic kidney disease. Chronic eczematous otitis externa of both ears 0 03/30/2020 Other otitis externa, unspecified ear 03/30/2020 Hypertension 02/19/2019 Overview (02/19/2019): Hypertension Assessment & Plan (11/09/2020 6:55 PM GARNETT MECHANIC): Impression: Stable chronic hypertension. Plan: Medications reviewed and recommend continuing daily antihypertensive regimen as directed by patient's primary care physician. Assessment & Plan (02/19/2019 1:16 PM CDT): Stable hypertension control with use of medications. Plan: Continue management as per primary care provider. Bilateral lower extremity edema 02/19/2019 Assessment & Plan (11/09/2020 6:56 PM GARNETT MECHANIC): Impression: Chronic bilateral lower extremity edema that [...] stenosis of lumbar region 02/18/2019 Atherosclerosis of [place] of both lower extremities with intermittent claudication 08/24/2018 Pain in both lower extremities 08/18/2018 Stenosis of carotid artery 07/22/2016 Overview (12/13/2016): Carotid stenosis, asymptomatic, right Assessment & Plan (11/09/2020 6:59 PM GARNETT MECHANIC): Impression: Stable asymptomatic bilateral internal carotid artery [...] materials from doctor or pharmacy Never 10/22/2024 [facility] Utilities Answer Date Recorded In the past 12 months has th e [place], gas, oil, or water [employer] threatened to shut off services in your [...] often do you attend chur ch or hoahaoism services? Never 12/03/2024 Do you belong to any clubs o r organizations such as yarsani groups, unions, fraternal or athletic groups, or [...] place to sleep or slept in a prison (including now)? No 05/09/2023 PHQ-9 Answer Date [...] any time in the past 12 m [facility], were you homeless or living in a prison (including now)? No 12/03/2024 Personal Safety Answer Date Recorded Have you ever been in or are you currently in a harmful physical or emotional relationship or is someone making you feel afraid or unsafe? Denies 12/03/2024 Comments No Sex and Gender Information Value Date Recorded Sex Assigned at Not on file Legal Sex Female 11:52 PM GARNETT MECHANIC Gender Identity Not on file Sexual Orientation [...] 02/03/2025 2:25 PM CDT Plan of Treatment Not on [...] was last reviewed 2021. Testing performed by: [address] [address] Blood 12/10/2024 3:13 AM CDT 12/10/2024 3:18 AM CDT us Nika Chowdhury NP LAB BLOOD ORDERABLES Final Re sult [facility] [address] [facility] [place] [address] * (ABNORMAL) Differential, auto (12/10/2024 3:13 AM CDT) Neutrophil abs 6.87(H) 1.50 - 6.50 K/cumm Comment:Testing performed by : [address] [address] Imm gran abs 0.12(H) 0.00 - 0.10 K/cumm [facility] Comment:Testing performed by : [address] [address] Lymphocyte abs 1.69 0.80 - 3.30 K/cumm [facility] Comment:Testing performed by : [address] [address] Monocyte abs 0.90(H) 0.20 - 0.80 K/cumm [facility] Comment:Testing performed by : [address] [address] Eosinophil abs 0.18 0.00 - 0.50 K/cumm [facility] Comment:Testing performed by : [address] [address] Basophil abs 0.05 0.00 - 0.10 K/cumm [facility] Comment:Testing performed by : [address] [address] Neutrophil pct 70.1 % [facility] Comment: Interpretive Data Percent cell count reference ranges are not reported, since discordance with absolute values may lead to misinterpretation of CBC data. Current Interpretive Data was last revised on 2017. Testing performed by: [address] [address] Imm gran pct 1.2 % [facility] Comment: Interpretive Data Percent cell count reference ranges are not reported, since discordance with absolute values may lead to misinterpretation of CBC data. Current Interpretive Data was last revised on 2017. Testing performed by: [address] [address] Lymphocyte pct 17.2 % [facility] Comment: Interpretive Data Percent cell count reference ranges are not reported, since discordance with absolute values may lead to misinterpretation of CBC data. Current Interpretive Data was last revised on 2017. Testing performed by: [address] [address] Monocyte pct 9.2 % [facility] Comment: Interpretive Data Percent cell count reference ranges are not reported, since discordance with absolute values may lead to misinterpretation of CBC data. Current Interpretive Data was last revised on 2017. Testing performed by: [address] [address] Eosinophil pct 1.8 % [facility] Comment: Interpretive Data Percent cell count reference ranges are not reported, since discordance with absolute values may lead to misinterpretation of CBC data. Current Interpretive Data was last revised on 2017. Testing performed by: [address] [address] Basophil pct 0.5 % [facility] Comment: Interpretive Data Percent cell count reference ranges are not reported, since discordance with absolute values may lead to misinterpretation of CBC data. Current Interpretive Data was last revised on 2017. Testing performed by: [address] [address] Blood 12/10/2024 3:13 AM CDT 12/10/2024 3:18 AM CDT Nika Chowdhury NP LAB BLOOD ORDERABLES Final Re sult [facility] [address] [facility] [place] [address] * (ABNORMAL) CBC with auto differential (12/10/2024 3:13 AM CDT) WBC 9.81 3.80 - 9.90 K/cumm Comment:Testing performed by : [address] [address] Hgb 9.9(L) 11.9 - 15.5 g/dL [facility] Comment:Testing performed by : [address] [address] Hct 29.6(L) 35.6 - 45.5 % [facility] Comment:Testing performed by : [address] [address] Plt 397 150 - 400 K/cumm [facility] Comment:Testing performed by : [address] [address] MPV 8.5(L) 9.1 - 12.3 fL [facility] Comment:Testing performed by : [address] [address] RBC 3.47(L) 3.90 - 5.20 M/cumm [facility] Comment:Testing performed by : [address] [address] MCV 85.3 81.3 - 96.4 fL [facility] Comment:Testing performed by : [address] [address] MCH 28.5 27.1 - 33.3 pg [facility] Comment:Testing performed by : [address] [address] MCHC 33.4 32.3 - 35.7 g/dL [facility] Comment:Testing performed by : [address] [address] RDW CV 14.5 11.1 - 14.9 % [facility] Comment:Testing performed by : [address], [address] RDW SD 44.8 35.7 - 48.1 fL [facility] LEA Comment:Testing performed by : [address] [address] NRBC abs 0.00 0.00 - 0.01 K/cumm [facility] LEA Comment:Testing performed by : [address] [address] Blood 12/10/2024 3:13 AM CDT 12/10/2024 3:18 AM CDT Nika Chowdhury NP LAB BLOOD ORDERABLES Final Re sult [facility] [address] [facility] Department [place] [address] * (ABNORMAL) Basic metabolic panel (12/10/2024 3:13 AM CDT) Sodium 133(L) 135 - 145 mmol/L Comment:Testing performed by : [address] [address] Potassium, pl 3.9 3.3 - 4.9 mmol/L [facility] Comment:Testing performed by : [address] [address] Chloride 95(L) 97 - 110 mmol/L [facility] Comment:Testing performed by : [address] [address] CO2 27 22 - 32 mmol/L [facility] Comment:Testing performed by : [address] [address] Anion gap 11 2 - 15 mmol/L [facility] Comment:Testing performed by : [address] [address] BUN 25 6 - 25 mg/dL [facility] Comment:Testing performed by : [address] [address] Creatinine 1.57(H) 0.60 - 1.10 mg/dL [facility] LEA Comment:Testing performed by : [address] [address] Glucose 116 70 - 199 mg/dL [facility] [...] revised 2022. Testing performed by: [facility], [address] [place] [address]., [address] Calcium 9.5 8.5 - 10.3 mg/dL [facility] Comment:Testing performed by : [address] [address] Blood 12/10/2024 3:13 AM CDT 12/10/2024 3:18 AM CDT Nika Chowdhury NP LAB BLOOD ORDERABLES Final Re sult [facility] [address] [facility] Department [place] [address] * XR Tibia Fibula Left 2 Views [...] Teddy Mei M.D. KR: PHAM Report ID: [id number] Reading Location: [id number] Procedure Note Teddy Mei MD - 12/09/2024 [...] Teddy Mei M.D. KR: PHAM Report ID: [id number] Reading Location: [id number] Sean Ngo MD IMG XR PROCEDURES Final [...] was last reviewed 2021. Testing performed by: [address] [address] Blood 12/09/2024 4:02 AM CDT 12/09/2024 4:50 AM CDT us Kaushiktaliagerson Chowdhury NP LAB BLOOD ORDERABLES Final Re sult [place] [address] [facility] Department [place] [address] * (ABNORMAL) Differential, auto (12/09/2024 4:02 AM CDT) Neutrophil abs 6.59(H) 1.50 - 6.50 K/cumm Comment:Testing performed by : [address] [address] Imm gran abs 0.19(H) 0.00 - 0.10 K/cumm [facility] Comment:Testing performed by : [address] [address] Lymphocyte abs 1.70 0.80 - 3.30 K/cumm [facility] Comment:Testing performed by : [address] [address] Monocyte abs 0.92(H) 0.20 - 0.80 K/cumm [facility] Comment:Testing performed by : [address] [address] Eosinophil abs 0.25 0.00 - 0.50 K/cumm [facility] Comment:Testing performed by : [address] [address] Basophil abs 0.07 0.00 - 0.10 K/cumm [facility] Comment:Testing performed by : [address] [address] Neutrophil pct 67.7 % [facility] Comment: Interpretive Data Percent cell count reference ranges are not reported, since discordance with absolute values may lead to misinterpretation of CBC data. Current Interpretive Data was last revised on 2017. Testing performed by: [address] [address] Imm gran pct 2.0 % [facility] Comment: Interpretive Data Percent cell count reference ranges are not reported, since discordance with absolute values may lead to misinterpretation of CBC data. Current Interpretive Data was last revised on 2017. Testing performed by: [address] [address] Lymphocyte pct 17.5 % [facility] Comment: Interpretive Data Percent cell count reference ranges are not reported, since discordance with absolute values may lead to misinterpretation of CBC data. Current Interpretive Data was last revised on 2017. Testing performed by: [address] [address] Monocyte pct 9.5 % [facility] Comment: Interpretive Data Percent cell count reference ranges are not reported, since discordance with absolute values may lead to misinterpretation of CBC data. Current Interpretive Data was last revised on 2017. Testing performed by: [address] [address] Eosinophil pct 2.6 % [facility] Comment: Interpretive Data Percent cell count reference ranges are not reported, since discordance with absolute values may lead to misinterpretation of CBC data. Current Interpretive Data was last revised on 2017. Testing performed by: [address] [address] Basophil pct 0.7 % [facility] Comment: Interpretive Data Percent cell count reference ranges are not reported, since discordance with absolute values may lead to misinterpretation of CBC data. Current Interpretive Data was last revised on 2017. Testing performed by: [address] [address] Blood 12/09/2024 4:02 AM CDT 12/09/2024 4:49 AM CDT us Nika Chowdhury NP LAB BLOOD ORDERABLES Final Re sult [facility] [address] [facility] Department [place] [address] * (ABNORMAL) CBC with auto differential (12/09/2024 4:02 AM CDT) [facility] WBC 9.72 3.80 - 9.90 K/cumm Comment:Testing performed by : [address] [address] Hgb 10.1(L) 11.9 - 15.5 g/dL [facility] Comment:Testing performed by : [address] [address] Hct 30.9(L) 35.6 - 45.5 % [facility] Comment:Testing performed by : [address] [address] Plt 442(H) 150 - 400 K/cumm [facility] Comment:Testing performed by : [address], [address] MPV 9.3 9.1 - 12.3 fL [facility] Comment:Testing performed by : [address] [address] RBC 3.58(L) 3.90 - 5.20 M/cumm [facility] Comment:Testing performed by : [address] [address] MCV 86.3 81.3 - 96.4 fL [facility] Comment:Testing performed by : [address] [address] MCH 28.2 27.1 - 33.3 pg [facility] Comment:Testing performed by : [address], [address] MCHC 32.7 32.3 - 35.7 g/dL [facility] Comment:Testing performed by : [address], [address] RDW CV 14.6 11.1 - 14.9 % [facility] Comment:Testing performed by : [address], [address] RDW SD 45.8 35.7 - 48.1 fL [facility] Comment:Testing performed by : [address] [address] NRBC abs 0.00 0.00 - 0.01 K/cumm [facility] Comment:Testing performed by : [address] [address] Blood 12/09/2024 4:02 AM CDT 12/09/2024 4:49 AM CDT Nika Chowdhury NP LAB BLOOD ORDERABLES Final Re sult [facility] [address] [facility] Department [place] [address] * (ABNORMAL) Basic metabolic panel (12/09/2024 4:02 AM CDT) Sodium 135 135 - 145 mmol/L Comment:Testing performed by : [address] [address] Potassium, pl 3.8 3.3 - 4.9 mmol/L [facility] Comment:Testing performed by : [address] [address] Chloride 95(L) 97 - 110 mmol/L [facility] Comment:Testing performed by : [address] [address] CO2 28 22 - 32 mmol/L [facility] Comment:Testing performed by : [address] [address] Anion gap 12 2 - 15 mmol/L [facility] Comment:Testing performed by : [address] [address] BUN 28(H) 6 - 25 mg/dL [facility] Comment:Testing performed by : [address] [address] Creatinine 1.81(H) 0.60 - 1.10 mg/dL [facility] Comment:Testing performed by : [address] [address] Glucose 105 70 - 199 mg/dL [facility] [...] revised 2022. Testing performed by: [facility], [address] [place] [address]., [address] Calcium 9.6 8.5 - 10.3 mg/dL [facility]A Comment:Testing performed by : [address] [address] Blood 12/09/2024 4:02 AM CDT 12/09/2024 4:49 AM CDT us Nika Chowdhury NP LAB BLOOD ORDERABLES Final Re sult [facility] [address] [facility] Department of Laboratories [place], [place] [id number] * (ABNORMAL) eGFR (12/08/2024 4:44 AM CDT) [...] was last reviewed 2021. Testing performed by: [address] [address] Blood 12/08/2024 4:44 AM CDT 12/08/2024 5:25 AM CDT us Nika Chowdhury NP LAB BLOOD ORDERABLES Final Re sult [facility] [address] [facility] Department [place] [address] * (ABNORMAL) Differential, auto (12/08/2024 4:44 AM CDT) Neutrophil abs 6.92(H) 1.50 - 6.50 K/cumm Comment:Testing performed by : [address] [address] Imm gran abs 0.24(H) 0.00 - 0.10 K/cumm [facility] Comment:Testing performed by : [address] [address] Lymphocyte abs 1.61 0.80 - 3.30 K/cumm [facility] Comment:Testing performed by : [address] [address] Monocyte abs 0.99(H) 0.20 - 0.80 K/cumm [facility] Comment:Testing performed by : [address] [address] Eosinophil abs 0.20 0.00 - 0.50 K/cumm [facility] Comment:Testing performed by : [address] [address] Basophil abs 0.06 0.00 - 0.10 K/cumm [facility] Comment:Testing performed by : [address] [address] Neutrophil pct 69.0 % [facility] Comment: Interpretive Data Percent cell count reference ranges are not reported, since discordance with absolute values may lead to misinterpretation of CBC data. Current Interpretive Data was last revised on 2017. Testing performed by: [address] [address] Imm gran pct 2.4 % [facility] Comment: Interpretive Data Percent cell count reference ranges are not reported, since discordance with absolute values may lead to misinterpretation of CBC data. Current Interpretive Data was last revised on 2017. Testing performed by: [address] [address] Lymphocyte pct 16.1 % [facility] Comment: Interpretive Data Percent cell count reference ranges are not reported, since discordance with absolute values may lead to misinterpretation of CBC data. Current Interpretive Data was last revised on 2017. Testing performed by: [address] [address] Monocyte pct 9.9 % [facility] Comment: Interpretive Data Percent cell count reference ranges are not reported, since discordance with absolute values may lead to misinterpretation of CBC data. Current Interpretive Data was last revised on 2017. Testing performed by: [address] [address] Eosinophil pct 2.0 % [facility] Comment: Interpretive Data Percent cell count reference ranges are not reported, since discordance with absolute values may lead to misinterpretation of CBC data. Current Interpretive Data was last revised on 2017. Testing performed by: [address] [address] Basophil pct 0.6 % [facility] Comment: Interpretive Data Percent cell count reference ranges are not reported, since discordance with absolute values may lead to misinterpretation of CBC data. Current Interpretive Data was last revised on 2017. Testing performed by: [address] [address] Blood 12/08/2024 4:44 AM CDT 12/08/2024 5:32 AM CDT us Nika Chowdhury NP LAB BLOOD ORDERABLES Final Re sult [facility] [address] [facility] Department [place] [address] * (ABNORMAL) CBC with auto differential (12/08/2024 4:44 AM CDT) WBC 10.02(H) 3.80 - 9.90 K/cumm Comment:Testing performed by : [address] [address] Hgb 10.8(L) 11.9 - 15.5 g/dL [facility] Comment:Testing performed by : [address] [address] Hct 32.5(L) 35.6 - 45.5 % [facility] Comment:Testing performed by : [address] [address] Plt 466(H) 150 - 400 K/cumm [facility] Comment:Testing performed by : [address] [address] MPV 9.0(L) 9.1 - 12.3 fL [facility] Comment:Testing performed by : [address], [address] RBC 3.78(L) 3.90 - 5.20 M/cumm [facility] Comment:Testing performed by : [address], [address] MCV 86.0 81.3 - 96.4 fL [facility] Comment:Testing performed by : [address], [address] MCH 28.6 27.1 - 33.3 pg [facility] Comment:Testing performed by : [address], [address] MCHC 33.2 32.3 - 35.7 g/dL [facility] Comment:Testing performed by : [address], [address] RDW CV 14.7 11.1 - 14.9 % [facility] Comment:Testing performed by : [address], [address] RDW SD 46.1 35.7 - 48.1 fL [facility] Comment:Testing performed by : [address], [address] NRBC abs 0.00 0.00 - 0.01 K/cumm [facility] Comment:Testing performed by : [address], [address] Blood 12/08/2024 4:44 AM CDT 12/08/2024 5:32 AM CDT us Nika Chowdhury NP LAB BLOOD ORDERABLES [facility] [address] [facility] Department [place] [address] * (ABNORMAL) Basic metabolic panel (12/08/2024 4:44 AM CDT) Sodium 135 135 - 145 mmol/L Comment:Testing performed by : [address] [address] Potassium, pl 4.0 3.3 - 4.9 mmol/L [facility] Comment:Testing performed by : [address] [address] Chloride 95(L) 97 - 110 mmol/L [facility] Comment:Testing performed by : [address] [address] CO2 28 22 - 32 mmol/L [facility] Comment:Testing performed by : [address] [address] Anion gap 12 2 - 15 mmol/L [facility] Comment:Testing performed by : [address] [address] BUN 26(H) 6 - 25 mg/dL [facility] Comment:Testing performed by : [address] [address] Creatinine 1.83(H) 0.60 - 1.10 mg/dL [facility] Comment:Testing performed by : [address] [address] Glucose 113 70 - 199 mg/dL [facility] [...] revised 2022. Testing performed by: [facility], [address] [place] [address]., [address] Calcium 9.6 8.5 - 10.3 mg/dL [facility] LEONORA Comment:Testing performed by : [address] [address] Blood 12/08/2024 4:44 AM CDT 12/08/2024 5:25 AM CDT us Nika Chowdhury NP LAB BLOOD ORDERABLES Final Re sult [facility] [address] [facility] Department [place] [address] * (ABNORMAL) eGFR (12/07/2024 4:30 AM CDT) [...] was last reviewed 2021. Testing performed by: [address] [address] Blood 12/07/2024 4:30 AM CDT 12/07/2024 5:09 AM CDT us Nika Chowdhury NP LAB BLOOD ORDERABLES Final Re sult [facility] [address] [facility] Department [place] [address] * (ABNORMAL) Differential, auto (12/07/2024 4:30 AM CDT) Neutrophil abs 7.8(H) 1.5 - 6.5 K/cumm Comment:Testing performed by : [address] [address] Imm gran abs 0.2(H) 0.0 - 0.1 K/cumm [facility] Comment:Testing performed by : [address] [address] Lymphocyte abs 1.5 0.8 - 3.3 K/cumm [facility] Comment:Testing performed by : [address] [address] Monocyte abs 1.1(H) 0.2 - 0.8 K/cumm [facility] Comment:Testing performed by : [address] [address] Eosinophil abs 0.4 0.0 - 0.5 K/cumm [facility] Comment:Testing performed by : [address] [address] Basophil abs 0.1 0.0 - 0.1 K/cumm [facility] Comment:Testing performed by : [address] [address] Neutrophil pct 71.0 % [facility] Comment: Interpretive Data Percent cell count reference ranges are not reported, since discordance with absolute values may lead to misinterpretation of CBC data. Current Interpretive Data was last revised on 2017. Testing performed by: [address] [address] Imm gran pct 2.0 % [facility] Comment: Interpretive Data Percent cell count reference ranges are not reported, since discordance with absolute values may lead to misinterpretation of CBC data. Current Interpretive Data was last revised on 2017. Testing performed by: [address] [address] Lymphocyte pct 13.6 % [facility] Comment: Interpretive Data Percent cell count reference ranges are not reported, since discordance with absolute values may lead to misinterpretation of CBC data. Current Interpretive Data was last revised on 2017. Testing performed by: [address] [address] Monocyte pct 9.6 % [facility] Comment: Interpretive Data Percent cell count reference ranges are not reported, since discordance with absolute values may lead to misinterpretation of CBC data. Current Interpretive Data was last revised on 2017. Testing performed by: [address] [address] Eosinophil pct 3.2 % [facility] Comment: Interpretive Data Percent cell count reference ranges are not reported, since discordance with absolute values may lead to misinterpretation of CBC data. Current Interpretive Data was last revised on 2017. Testing performed by: [address] [address] Basophil pct 0.6 % [facility] Comment: Interpretive Data Percent cell count reference ranges are not reported, since discordance with absolute values may lead to misinterpretation of CBC data. Current Interpretive Data was last revised on 2017. Testing performed by: [address] [address] Blood 12/07/2024 4:30 AM CDT 12/07/2024 5:18 AM CDT Nika Chowdhury NP LAB BLOOD ORDERABLES Final Re sult HANNAH [address] [facility] Department [place] [address] * (ABNORMAL) CBC with auto differential (12/07/2024 4:30 AM CDT) WBC 11.0(H) 3.8 - 9.9 K/cumm Comment:Testing performed by : [address] [address] Hgb 10.4(L) 11.9 - 15.5 g/dL HANNAH Comment:Testing performed by : [address] [address] Hct 32.4(L) 35.6 - 45.5 % HANNAH Comment:Testing performed by : [address] [address] Plt 440(H) 150 - 400 K/cumm HANNAH Comment:Testing performed by : [address] [address] MPV 9.5 9.1 - 12.3 fL HANNAH Comment:Testing performed by : [address] [address] RBC 3.75(L) 3.90 - 5.20 M/cumm HANNAH Comment:Testing performed by : [address] [address] MCV 86.4 81.3 - 96.4 fL HANNAH Comment:Testing performed by : [address] [address] MCH 27.7 27.1 - 33.3 pg HANNAH Comment:Testing performed by : [address] [address] MCHC 32.1(L) 32.3 - 35.7 g/dL HANNAH Comment:Testing performed by : [address] [address] RDW CV 14.7 11.1 - 14.9 % HANNAH Comment:Testing performed by : [address] [address] RDW SD 46.4 35.7 - 48.1 fL [facility]Testing performed by : [address] [address] NRBC abs 0.00 0.00 - 0.01 K/cumm HANNAH Comment:Testing performed by : [address] [address] Blood 12/07/2024 4:30 AM CDT 12/07/2024 5:18 AM CDT us Nika Chowdhury NP LAB BLOOD ORDERABLES Final Re sult HANNAH [address] [facility] Department [place] [address] * (ABNORMAL) Basic metabolic panel (12/07/2024 4:30 AM CDT) Sodium 138 135 - 145 mmol/L Comment:Testing performed by : [address] [address] Potassium, pl 4.3 3.3 - 4.9 mmol/L HANNAH Comment:Testing performed by : [address] [address] Chloride 97 97 - 110 mmol/L HANNAH Comment:Testing performed by : [address] [address] CO2 28 22 - 32 mmol/L HANNAH Comment:Testing performed by : [address] [address] Anion gap 13 2 - 15 mmol/L HANNAH Comment:Testing performed by : [address] [address] BUN 24 6 - 25 mg/dL HANNAH Comment:Testing performed by : [address] [address] Creatinine 1.49(H) 0.60 - 1.10 mg/dL HANNAH Comment:Testing performed by : [address] [address] Glucose 114 70 - 199 mg/dL HANNAH [...] revised 2022. Testing performed by: [facility], [address] [place] [address]., [address] Calcium 9.8 8.5 - 10.3 mg/dL HANNAH LEA Comment:Testing performed by : [facility], [address] [place] [address]., [address] Blood 12/07/2024 4:30 AM CDT 12/07/2024 5:09 AM CDT Nika Chowdhury NP LAB BLOOD ORDERABLES Final Re sult HANNAH LEA [address] [facility] Department [place] [address] * (ABNORMAL) eGFR (12/06/2024 5:07 [...] was last reviewed 2021. Testing performed by: [address] [address] Blood 12/06/2024 5:07 AM CDT 12/06/2024 5:49 AM CDT Nika Chowdhury HISTORIOGRAPHY PROFESSOR LAB BLOOD ORDERABLES Final Re sult HANNAH [address] [facility] Department [place] [address] * (ABNORMAL) Differential, auto (12/06/2024 5:07 AM CDT) Neutrophil abs 6.1 1.5 - 6.5 K/cumm Comment:Testing performed by : [address] [address] Imm gran abs 0.2(H) 0.0 - 0.1 K/cumm HANNAH Comment:Testing performed by : [address] [address] Lymphocyte abs 1.6 0.8 - 3.3 K/cumm HANNAH Comment:Testing performed by : [address] [address] Monocyte abs 0.9(H) 0.2 - 0.8 K/cumm HANNAH Comment:Testing performed by : [address] [address] Eosinophil abs 0.4 0.0 - 0.5 K/cumm [facility] Comment:Testing performed by : [address] [address] Basophil abs 0.1 0.0 - 0.1 K/cumm [facility] Comment:Testing performed by : [address] [address] Neutrophil pct 65.2 % [facility] Comment: Interpretive Data Percent cell count reference ranges are not reported, since discordance with absolute values may lead to misinterpretation of CBC data. Current Interpretive Data was last revised on 2017. Testing performed by: [address] [address] Imm gran pct 2.4 % HANNAH Comment: Interpretive Data Percent cell count reference ranges are not reported, since discordance with absolute values may lead to misinterpretation of CBC data. Current Interpretive Data was last revised on 2017. Testing performed by: [address] [address] Lymphocyte pct 17.4 % HANNAH Comment: Interpretive Data Percent cell count reference ranges are not reported, since discordance with absolute values may lead to misinterpretation of CBC data. Current Interpretive Data was last revised on 2017. Testing performed by: [address] [address] Monocyte pct 9.9 % HANNAH Comment: Interpretive Data Percent cell count reference ranges are not reported, since discordance with absolute values may lead to misinterpretation of CBC data. Current Interpretive Data was last revised on 2017. Testing performed by: [address] [address] Eosinophil pct 4.5 % HANNAH Comment: Interpretive Data Percent cell count reference ranges are not reported, since discordance with absolute values may lead to misinterpretation of CBC data. Current Interpretive Data was last revised on 2017. Testing performed by: [address] [address] Basophil pct 0.6 % HANNAH Comment: Interpretive Data Percent cell count reference ranges are not reported, since discordance with absolute values may lead to misinterpretation of CBC data. Current Interpretive Data was last revised on 2017. Testing performed by: [address] [address] Blood 12/06/2024 5:07 AM CDT 12/06/2024 5:49 AM CDT Nika Chowdhury NP LAB BLOOD ORDERABLES Final Re sult [facility] [address] [facility] Department [place] [address] * (ABNORMAL) CBC with auto differential (12/06/2024 5:07 AM CDT) WBC 9.3 3.8 - 9.9 K/cumm Comment:Testing performed by : [address] [address] Hgb 9.7(L) 11.9 - 15.5 g/dL HANNAH Comment:Testing performed by : [address] [place] [address] Hct 30.0(L) 35.6 - 45.5 % HANNAH Comment:Testing performed by : [address], [address] Plt 410(H) 150 - 400 K/cumm HANNAH Comment:Testing performed by : [address], [address] MPV 9.1 9.1 - 12.3 fL HANNAH Comment:Testing performed by : [address], [address] RBC 3.43(L) 3.90 - 5.20 M/cumm HANNAH Comment:Testing performed by : [address], [address] MCV 87.5 81.3 - 96.4 fL HANNAH Comment:Testing performed by : [address], [address] MCH 28.3 27.1 - 33.3 pg HANNAH Comment:Testing performed by : [address], [address] MCHC 32.3 32.3 - 35.7 g/dL HANNAH Comment:Testing performed by : [address], [address] RDW CV 15.0(H) 11.1 - 14.9 % HANNAH Comment:Testing performed by : [address], [address] RDW SD 47.5 35.7 - 48.1 fL [facility]ANNAH Comment:Testing performed by : [address], [address] NRBC abs 0.00 0.00 - 0.01 K/cumm HANNAH Comment:Testing performed by : [address], [address] Blood 12/06/2024 5:07 AM CDT 12/06/2024 5:49 AM CDT Nika Chowdhury NP LAB BLOOD ORDERABLES Final Re sult HANNAH [address] [facility] Department [place] [address] * (ABNORMAL) Basic metabolic panel (12/06/2024 5:07 AM CDT) Sodium 137 135 - 145 mmol/L Comment:Testing performed by : [address] [address] Potassium, pl 4.4 3.3 - 4.9 mmol/L HANNAH Comment:Testing performed by : [address] [address] Chloride 97 97 - 110 mmol/L HANNAH Comment:Testing performed by : [address] [address] CO2 30 22 - 32 mmol/L HANNAH Comment:Testing performed by : [address] [address] Anion gap 10 2 - 15 mmol/L HANNAH Comment:Testing performed by : [address] [address] BUN 22 6 - 25 mg/dL HANNAH Comment:Testing performed by : [address] [address] Creatinine 1.50(H) 0.60 - 1.10 mg/dL HANNAH Comment:Testing performed by : [address] [address] Glucose 108 70 - 199 mg/dL [facility] Comment: Interpretive Data Fasting glucose >/= 126 [...] was last revised 2022. Testing performed by: [address] [address] Calcium 9.1 8.5 - 10.3 mg/dL HANNAH Comment:Testing performed by : [facility], [address] [place] [address]., [address] Blood 12/06/2024 5:07 AM CDT 12/06/2024 5:49 AM CDT Nika Chowdhury HISTORIOGRAPHY PROFESSOR LAB BLOOD ORDERABLES Final Re sult Performing Organization Address [facility] Co de Phone Number HANNAH [address] [facility] [place] [address] * (ABNORMAL) eGFR (12/05/2024 4:58 AM CDT) [...] reviewed 2021. Testing performed by: [facility], [address] [place] [address]., [address] Blood 12/05/2024 4:58 AM CDT 12/05/2024 5:12 AM CDT Nika Chowdhury HISTORIOGRAPHY PROFESSOR LAB BLOOD ORDERABLES Final Re sult Performing Organization Address City/[facility]/ZIP Co de Phone Number [place] [id number] [facility] [place] [address] * (ABNORMAL) Differential, auto (12/05/2024 4:58 AM CDT) Neutrophil abs 7.3(H) 1.5 - 6.5 K/cumm Comment:Testing performed by : [address] [address] Imm gran abs 0.2(H) 0.0 - 0.1 K/cumm HANNAH Comment:Testing performed by : [address] [address] Lymphocyte abs 1.3 0.8 - 3.3 K/cumm [facility] Comment:Testing performed by : [address] [address] Monocyte abs 1.0(H) 0.2 - 0.8 K/cumm [facility] Comment:Testing performed by : [address] [address] Eosinophil abs 0.4 0.0 - 0.5 K/cumm [facility] Comment:Testing performed by : [address] [address] Basophil abs 0.0 0.0 - 0.1 K/cumm [facility] Comment:Testing performed by : [address] [address] Neutrophil pct 71.4 % [facility] Comment: Interpretive Data Percent cell count reference ranges are not reported, since discordance with absolute values may lead to misinterpretation of CBC data. Current Interpretive Data was last revised on 2017. Testing performed by: [address] [address] Imm gran pct 1.5 % [facility] Comment: Interpretive Data Percent cell count reference ranges are not reported, since discordance with absolute values may lead to misinterpretation of CBC data. Current Interpretive Data was last revised on 2017. Testing performed by: [address] [address] Lymphocyte pct 12.9 % [facility] Comment: Interpretive Data Percent cell count reference ranges are not reported, since discordance with absolute values may lead to misinterpretation of CBC data. Current Interpretive Data was last revised on 2017. Testing performed by: [address] [address] Monocyte pct 10.0 % HANNAH Comment: Interpretive Data Percent cell count reference ranges are not reported, since discordance with absolute values may lead to misinterpretation of CBC data. Current Interpretive Data was last revised on 2017. Testing performed by: [address] [address] Eosinophil pct 3.8 % HANNAH Comment: Interpretive Data Percent cell count reference ranges are not reported, since discordance with absolute values may lead to misinterpretation of CBC data. Current Interpretive Data was last revised on 2017. Testing performed by: [address] [address] Basophil pct 0.4 % HANNAH Comment: Interpretive Data Percent cell count reference ranges are not reported, since discordance with absolute values may lead to misinterpretation of CBC data. Current Interpretive Data was last revised on 2017. Testing performed by: [address] [address] Blood 12/05/2024 4:58 AM CDT 12/05/2024 5:12 AM CDT us Nika Chowdhury NP LAB BLOOD ORDERABLES Final Re sult [facility] [address] [facility] Department [place] [address] * (ABNORMAL) CBC with auto differential (12/05/2024 4:58 AM CDT) WBC 10.3(H) 3.8 - 9.9 K/cumm Comment:Testing performed by : [address] [address] Hgb 9.1(L) 11.9 - 15.5 g/dL HANNAH LEA Comment:Testing performed by : [address] [address] Hct 28.4(L) 35.6 - 45.5 % HANNAH Comment:Testing performed by : [address] [address]397 Plt 396 150 - 400 K/cumm HANNAH Comment:Testing performed by : [address] [address] MPV 9.1 9.1 - 12.3 fL HANNAH LEA Comment:Testing performed by : [address] [address] RBC 3.23(L) 3.90 - 5.20 M/cumm HANNAH Comment:Testing performed by : [address] [address] MCV 87.9 81.3 - 96.4 fL HANNAH Comment:Testing performed by : [address] [address]695 MCH 28.2 27.1 - 33.3 pg HANNAH Comment:Testing performed by : [address] [address] MCHC 32.0(L) 32.3 - 35.7 g/dL HANNAH Comment:Testing performed by : [address] [address] RDW CV 15.0(H) 11.1 - 14.9 % HANNAH Comment:Testing performed by : [address] [address] RDW SD 48.8(H) 35.7 - 48.1 fL HANNAH Comment:Testing performed by : [address] [address] NRBC abs 0.00 0.00 - 0.01 K/cumm HANNAH Comment:Testing performed by : [address] [address] Blood 12/05/2024 4:58 AM CDT 12/05/2024 5:12 AM CDT us Nika Chowdhury NP LAB BLOOD ORDERABLES Final Re sult HANNAH LEA [address] [facility] Department [place] [address] * (ABNORMAL) Basic metabolic panel (12/05/2024 4:58 AM CDT) Sodium 139 135 - 145 mmol/L Comment:Testing performed by : [address] [address] Potassium, pl 4.5 3.3 - 4.9 mmol/L HANNAH Comment:Testing performed by : [address] [address] Chloride 101 97 - 110 mmol/L HANNAH Comment:Testing performed by : [address] [address] CO2 28 22 - 32 mmol/L HANNAH Comment:Testing performed by : [address] [address] Anion gap 10 2 - 15 mmol/L HANNAH Comment:Testing performed by : [address] [address] BUN 22 6 - 25 mg/dL HANNAH Comment:Testing performed by : [address] [address] Creatinine 1.42(H) 0.60 - 1.10 mg/dL HANNAH Comment:Testing performed by : [address] [address] Glucose 109 70 - 199 mg/dL HANNAH [...] was last revised 2022. Testing performed by: [address] [address] Calcium 9.3 8.5 - 10.3 mg/dL HANNAH Comment:Testing performed by : [address] [address] Blood 12/05/2024 4:58 AM CDT 12/05/2024 5:12 AM CDT Nika Chowdhury NP LAB BLOOD ORDERABLES Final Re sult Performing Organization Address [facility] Co de Phone Number HANNAH [address] [place] [address] * (ABNORMAL) eGFR (12/04/2024 5:05 AM CDT) [...] reviewed 2021. Testing performed by: [facility], [address] [place] [address]., [address] Blood 12/04/2024 5:05 AM CDT 12/04/2024 5:29 AM CDT Nika Chowdhury LAB BLOOD ORDERABLES Final Re sult Performing Organization Address [facility] Co de Phone Number HANNAH [facility] [place] [address] * (ABNORMAL) Differential, auto (12/04/2024 5:05 AM CDT) Neutrophil abs 6.4 1.5 - 6.5 K/cumm Comment:Testing performed by : [address] [address] Imm gran abs 0.2(H) 0.0 - 0.1 K/cumm HANNAH Comment:Testing performed by : [address] [address] Lymphocyte abs 1.2 0.8 - 3.3 K/cumm [facility] Comment:Testing performed by : [address] [address] Monocyte abs 1.0(H) 0.2 - 0.8 K/cumm [facility] Comment:Testing performed by : [address] [address] Eosinophil abs 0.3 0.0 - 0.5 K/cumm [facility] Comment:Testing performed by : [address] [address] Basophil abs 0.1 0.0 - 0.1 K/cumm [facility] Comment:Testing performed by : [address] [address] Neutrophil pct 70.2 % [facility] Comment: Interpretive Data Percent cell count reference ranges are not reported, since discordance with absolute values may lead to misinterpretation of CBC data. Current Interpretive Data was last revised on 2017. Testing performed by: [address] [address] Imm gran pct 1.7 % [facility] Comment: Interpretive Data Percent cell count reference ranges are not reported, since discordance with absolute values may lead to misinterpretation of CBC data. Current Interpretive Data was last revised on 2017. Testing performed by: [address] [address] Lymphocyte pct 12.8 % [facility] Comment: Interpretive Data Percent cell count reference ranges are not reported, since discordance with absolute values may lead to misinterpretation of CBC data. Current Interpretive Data was last revised on 2017. Testing performed by: [address] [address] Monocyte pct 11.5 % HANNAH Comment: Interpretive Data Percent cell count reference ranges are not reported, since discordance with absolute values may lead to misinterpretation of CBC data. Current Interpretive Data was last revised on 2017. Testing performed by: [address] [address] Eosinophil pct 3.1 % HANNAH Comment: Interpretive Data Percent cell count reference ranges are not reported, since discordance with absolute values may lead to misinterpretation of CBC data. Current Interpretive Data was last revised on 2017. Testing performed by: [address] [address] Basophil pct 0.7 % HANNAH Comment: Interpretive Data Percent cell count reference ranges are not reported, since discordance with absolute values may lead to misinterpretation of CBC data. Current Interpretive Data was last revised on 2017. Testing performed by: [address] [address] Blood 12/04/2024 5:05 AM CDT 12/04/2024 5:29 AM CDT us Nika Chowdhury NP LAB BLOOD ORDERABLES Final Re sult HANNAH [address] [facility] [place] [address] * (ABNORMAL) CBC with auto differential (12/04/2024 5:05 AM CDT) WBC 9.1 3.8 - 9.9 K/cumm Comment:Testing performed by : [address] [address] Hgb 8.9(L) 11.9 - 15.5 g/dL HANNAH LEA Comment:Testing performed by : [address] [address] Hct 28.5(L) 35.6 - 45.5 % HANNAH Comment:Testing performed by : [address] [address]15 Plt 383 150 - 400 K/cumm HANNAH LEA Comment:Testing performed by : [address] [address] MPV 9.2 9.1 - 12.3 fL HANNAH LEA Comment:Testing performed by : [address] [address] RBC 3.20(L) 3.90 - 5.20 M/cumm HANNAH LEA Comment:Testing performed by : [address] [address] MCV 89.1 81.3 - 96.4 fL HANNAH Comment:Testing performed by : [address] [address] MCH 27.8 27.1 - 33.3 pg HANNAH Comment:Testing performed by : [address] [address] MCHC 31.2(L) 32.3 - 35.7 g/dL HANNAH Comment:Testing performed by : [address] [address] RDW CV 15.0(H) 11.1 - 14.9 % HANNAH Comment:Testing performed by : [address], [address] RDW SD 49.6(H) 35.7 - 48.1 fL HANNAH Comment:Testing performed by : [address] [address] NRBC abs 0.00 0.00 - 0.01 K/cumm HANNAH Comment:Testing performed by : [address] [address] Blood 12/04/2024 5:05 AM CDT 12/04/2024 5:29 AM CDT Nika Chowdhury NP LAB BLOOD ORDERABLES Final Re sult HANNAH [address] [facility] Department of Laboratories [place], [place] [id number] * (ABNORMAL) Basic metabolic panel (12/04/2024 5:05 AM CDT) Sodium 139 135 - 145 mmol/L Comment:Testing performed by : [address] [address] Potassium, pl 4.6 3.3 - 4.9 mmol/L HANNAH Comment:Testing performed by : [address], [place]., [address] Chloride 100 97 - 110 mmol/L HANNAH Comment:Testing performed by : [address], [place]., [address] CO2 28 22 - 32 mmol/L HANNAH Comment:Testing performed by : [address], [place]., [address] Anion gap 11 2 - 15 mmol/L HANNAH Comment:Testing performed by : [address], [place]., [address] BUN 26(H) 6 - 25 mg/dL [facility] Comment:Testing performed by : [address], [place]., [address] Creatinine 1.30(H) 0.60 - 1.10 mg/dL [facility] Comment:Testing performed by : [address] [address] Glucose 104 70 - 199 mg/dL [facility] Comment: Interpretive Data Fasting glucose >/= [...] was last revised 2022. Testing performed by: [address] [address] Calcium 9.0 8.5 - 10.3 mg/dL HANNAH Comment:Testing performed by : [address], [place]., [address] Blood 12/04/2024 5:05 AM CDT 12/04/2024 5:29 AM CDT Nika Chowdhury NP LAB BLOOD ORDERABLES Final Re sult [facility] [address] [facility] [place] [address] * US VEIN DUPLEX LOWER EXTREMITY LEFT LIMITED, UNILATERAL (12/03/2024 4:47 PM CDT) Anatomical Region Laterality Modality Vascular Left Ultrasound 12/03/2024 4:21 PM CDT Narrative 12/04/2024 8:56 AM CDT Lower Extremity Venous Report Patient Name: LUCILLE SEVILLA MAE : 1935 (89y 2m) Gender: F Study Date: 12/03/2024 04:21:28 PM Data Security Analyst: Ariella Alonzo RDMS,Asmita Location: [id number] Order Provider: NIKA CHOWDHURY Quality: Adequate Ref [...] distal augmentation. Provider Notification: RUBY Chowdhury via [employer]. CONCLUSIONS: 1. There is no evidence of [...] Gender: F Study Date: 12/03/2024 04:21:28 PM Data Security Analyst: Ariella Alonzo RDMS,T Location:[id number] Order Provider: NIKA CHOWDHURY Quality: Adequate Ref [...] to distalaugmentation. Provider Notification: RUBY Chowdhury via [employer]. CONCLUSIONS: 1. There is no evidence of deep vein thrombosis in the left lowerextremity. ATTESTATION: I have reviewed and interpreted the pertinent images and measurements ofthis study. I attest to the conclusions in the final report that is provided above. Electronically Signed By: Kristopher Escobar MD 12/04/2024 8:23:34 AM CDT Nika Chowdhury NP IMG US PROCEDURES Final Resul t * (ABNORMAL) Urinalysis reflex to microscopic and culture Urine (12/03/2024 12:57 PM CDT) Color, ur Yellow Yellow Comment:Testing performed by : [address] [address] Clarity, ur Clear Clear HANNAH Comment:Testing performed by : [address] [address] Specific gravity, ur 1.009 1.003 - 1.030 HANNAH Comment:Testing performed by : [address] [address] pH, urine 6.5 HANNAH Comment: Interpretive Data U rine pH is affected by diet, medications, systemic acid-base disturbances, and renal tubular function. pH may affect urinary stone formation. For example, urine pH below 6.0 may help reduce the tendency for calcium phosphate stones and pH greater than 6.0 may reduce the tendency for uric acid stone formation. Source: [employer] Current Interpretive Data was last revised on 2017 Testing performed by: [address] [address] Protein, ur ql Negative Negative HANNAH Comment:Testing performed by : [address] [address] Glucose, ur ql Negative Negative HANNAH LEA Comment:Testing performed by : [address], [place]., [address] Ketones, ur Negative Negative HANNAH LEA Comment:Testing performed by : [address], [place]., [address] Bilirubin, ur Negative Negative HANNAH Comment:Testing performed by : [address], [place]., [address] Blood, ur Negative Negative HANNAH Comment:Testing performed by : [address], [place]., [address] Urobilinogen, ur <2.0 <2.0 mg/dL HANNAH Comment:Testing performed by : [address], [place]., [address] Nitrite, ur Negative Negative HANNAH Comment:Testing performed by : [address], [place]., [address] Leukocyte esterase, ur 3+(A) Negative HANNAH Comment:Testing performed by : [address], [place]., [address] UA reflex comment Reflex to microscopic UA will be performed. HANNAH Comment:Testing performed by : [address], [place]., [address] Urine 12/03/2024 12:5 7 PM CDT 12/03/2024 1:01 PM CDT Narrative HANNAH - 12/03/2024 1:04 PM CDT If patient unable to urinate, straight cath Jaimie Romero MD LAB MICROBIOLOGY - GENERAL ORDERABLES Final Result HANNAH [address] [facility] [place] [address] * (ABNORMAL) Urinalysis, microscopic only (12/03/2024 12:57 PM CDT) WBC, ur 11-20(A) 0 - 5 /HPF Comment:Testing performed by : [address], [place]., [address] RBC, ur 0-2 0 - 2 /HPF HANNAH LEA Comment:Testing performed by : [facility], [address] [place] [address]., [address] Culture Reflex Comment Reflex to urine culture will be performed. HANNAH Comment:Testing performed by : [facility], [address] [place] [address]., [address] Urine 12/03/2024 12:5 7 PM CDT 12/03/2024 1:01 PM CDT Jaimie Romero MD LAB URINE ORDERABLES Final Result Performing Organization Address [facility] de Phone Number [address] [place] [address] * Urine culture Urine (12/03/2024 12:57 PM CDT) Report Final Report: Less than 100,000 colonies/mL (clinically insignificant growth based on current clinical standards) Comment:Testing performed by : [facility], [address] [place] [address], [place]., [address] Organism (CLINICALLY INSIGNIFICANT GROWTH HANNAH Urine 12/03/2024 12:5 7 PM CDT 12/03/2024 4:29 PM CDT Narrative HANNAH - 12/04/2024 5:30 PM CDT Urine culture reflexed based upon urinalysis results. Testing performed by [facility] Microbiology Laboratory ([phone]) Jaimie Romero MD LAB MICROBIOLOGY - GENERAL ORDERABLES Final Result Performing Organization Address [facility] Co de Phone Number [address] [place] [address] * Blood culture Blood Peripheral (12/03/2024 11:27 AM CDT) Report Final Report: No growth Comment:Testing performed by : [facility], [address] [place] [address]., [address] Blood (Peripheral) 12/03/2024 11:27 AM CDT 12/03/2024 [...] characteristics have been verified by the [facility] Microbiology Laboratory. For questions about this culture, contact the Microbiology Laboratory at [phone]. Interpretive data was last revised on 24. Jaimie Romero MD LAB MICROBIOLOGY - GENERAL ORDERABLES Final Result HANNAH [address] [facility] [place] [address] * Blood culture Blood Peripheral (12/03/2024 11:27 AM CDT) Report Final Report: No growth Comment:Testing performed by : [facility], [address] [place] [facility], [place]., [address] Blood (Peripheral) 12/03/2024 11:27 AM CDT 12/03/2024 [...] characteristics have been verified by the [facility] Microbiology Laboratory. For questions about this culture, contact the Microbiology Laboratory at [phone]. Interpretive data was last revised on 24. Jaimie Romero MD LAB MICROBIOLOGY - GENERAL ORDERABLES Final Result Performing Organization Address City/[facility]/ZIP Co de Phone Number [facility] [place] [address] * Sepsis Lactate w/ Reflex (12/03/2024 10:16 AM CDT) [facility] Sepsis Lactate 1.7 0.7 - 2.0 mmol/L Comment:Testing performed by : [facility], [address] [place] [address]., [address] Blood 12/03/2024 10:1 6 AM CDT 12/03/2024 10:21 AM CDT Jaimie Romero MD LAB BLOOD ORDERABLES Final Result [facility] [place] [address] * (ABNORMAL) eGFR (12/03/2024 10:16 AM CDT) [facility] eGFR 39(L) >=60 mL/min/1. 73 m2 Comment: [...] was last reviewed 2021. Testing performed by: [address] [address] Blood 12/03/2024 10:1 6 AM CDT 12/03/2024 10:21 AM CDT Jaimie Romero MD LAB BLOOD ORDERABLES Final Result HANNAH [address] [facility] [place] [address] * (ABNORMAL) Differential, auto (12/03/2024 10:16 AM CDT) Neutrophil abs 8.1(H) 1.5 - 6.5 K/cumm Comment:Testing performed by : [address] [address] Imm gran abs 0.2(H) 0.0 - 0.1 K/cumm HANNAH LEA Comment:Testing performed by : [address] [address] Lymphocyte abs 1.0 0.8 - 3.3 K/cumm HANNAH LEA Comment:Testing performed by : [address] [address] Monocyte abs 1.0(H) 0.2 - 0.8 K/cumm [facility] Comment:Testing performed by : [address] [address] Eosinophil abs 0.3 0.0 - 0.5 K/cumm [facility] Comment:Testing performed by : [address] [address] Basophil abs 0.1 0.0 - 0.1 K/cumm [facility] Comment:Testing performed by : [address] [address] Neutrophil pct 76.0 % [facility] Comment: Interpretive Data Percent cell count reference ranges are not reported, since discordance with absolute values may lead to misinterpretation of CBC data. Current Interpretive Data was last revised on 2017. Testing performed by: [address] [address] Imm gran pct 1.4 % [facility] Comment: Interpretive Data Percent cell count reference ranges are not reported, since discordance with absolute values may lead to misinterpretation of CBC data. Current Interpretive Data was last revised on 2017. Testing performed by: [address] [address] Lymphocyte pct 9.5 % [facility] Comment: Interpretive Data Percent cell count reference ranges are not reported, since discordance with absolute values may lead to misinterpretation of CBC data. Current Interpretive Data was last revised on 2017. Testing performed by: [address] [address] Monocyte pct 9.4 % [facility] Comment: Interpretive Data Percent cell count reference ranges are not reported, since discordance with absolute values may lead to misinterpretation of CBC data. Current Interpretive Data was last revised on 2017. Testing performed by: [address] [address] Eosinophil pct 3.1 % [facility] Comment: Interpretive Data Percent cell count reference ranges are not reported, since discordance with absolute values may lead to misinterpretation of CBC data. Current Interpretive Data was last revised on 2017. Testing performed by: [address] [address] Basophil pct 0.6 % HANNAH Comment: Interpretive Data Percent cell count reference ranges are not reported, since discordance with absolute values may lead to misinterpretation of CBC data. Current Interpretive Data was last revised on 2017. Testing performed by: [address] [address] Blood 12/03/2024 10:1 6 AM CDT 12/03/2024 10:21 AM CDT Jaimie Romero MD LAB BLOOD ORDERABLES Final Result [facility] [address] [facility] [place] [address] * (ABNORMAL) CBC with auto differential (12/03/2024 10:16 AM CDT) WBC 10.6(H) 3.8 - 9.9 K/cumm Comment:Testing performed by : [address] [address] Hgb 9.9(L) 11.9 - 15.5 g/dL HANNAH Comment:Testing performed by : [address] [address] Hct 31.3(L) 35.6 - 45.5 % HANNAH Comment:Testing performed by : [address] [address] Plt 384 150 - 400 K/cumm HANNAH Comment:Testing performed by : [address] [address] MPV 9.0(L) 9.1 - 12.3 fL HANNAH Comment:Testing performed by : [address] [address] RBC 3.51(L) 3.90 - 5.20 M/cumm HANNAH Comment:Testing performed by : [address] [address] MCV 89.2 81.3 - 96.4 fL HANNAH Comment:Testing performed by : [address] [address] MCH 28.2 27.1 - 33.3 pg HANNAH LEA Comment:Testing performed by : [address] [address] MCHC 31.6(L) 32.3 - 35.7 g/dL HANNAH LEA Comment:Testing performed by : [address], [address] RDW CV 15.2(H) 11.1 - 14.9 % HANNAH LEA Comment:Testing performed by : [address], [address] RDW SD 49.8(H) 35.7 - 48.1 fL HANNAH LEA Comment:Testing performed by : [address], [address] NRBC abs 0.00 0.00 - 0.01 K/cumm HANNAH Comment:Testing performed by : [address], [address] Blood 12/03/2024 10:1 6 AM CDT 12/03/2024 10:21 AM CDT us Jaimie Romero MD LAB BLOOD ORDERABLES Final Result Performing Organization Address City/[facility] Co de Phone Number [address] [place] [address] * Erythrocyte sedimentation rate (12/03/2024 10:16 AM CDT) Pathologist [facility] Erythrocyte sedimentation rate 28 1 - 30 mm/hr Comment:Testing performed by : [address], [address] Blood 12/03/2024 10:1 6 AM CDT 12/03/2024 10:21 AM CDT us Nika Chowdhury NP LAB BLOOD ORDERABLES Final Re sult Performing Organization Address City/[facility] Co de Phone Number [address] [place] [address] * (ABNORMAL) CRP (acute phase) (12/03/2024 10:16 AM CDT) Pathologist [facility] CRP 14.5(H) <=10.0 mg/L Comment:Testing performed by : [address] [address] Blood 12/03/2024 10:1 6 AM CDT 12/03/2024 10:21 AM CDT Nika Chowdhury NP LAB BLOOD ORDERABLES Final Re sult [place] [address] [facility] [place] [address] * (ABNORMAL) Comprehensive metabolic panel (12/03/2024 10:16 AM CDT) Pathologist [facility] Sodium 137 135 - 145 mmol/L Comment:Testing performed by : [address] [address] Potassium, pl 4.7 3.3 - 4.9 mmol/L HANNAH Comment:Testing performed by : [address] [address] Chloride 102 97 - 110 mmol/L HANNAH Comment:Testing performed by : [address] [address] CO2 24 22 - 32 mmol/L HANNAH Comment:Testing performed by : [address] [address] Anion gap 11 2 - 15 mmol/L HANNAH Comment:Testing performed by : [address] [address] BUN 25 6 - 25 mg/dL HANNAH Comment:Testing performed by : [address] [address] Creatinine 1.30(H) 0.60 - 1.10 mg/dL HANNAH Comment:Testing performed by : [address] [address] Glucose 158 70 - 199 mg/dL HANNAH [...] was last revised 2022. Testing performed by: [address] [address] Calcium 9.1 8.5 - 10.3 mg/dL HANNAH Comment:Testing performed by : [address] [address] Bilirubin, total 0.2 0.1 - 1.2 mg/dL HANNAH Comment:Testing performed by : [address] [address] Protein, pl 6.7 6.5 - 8.5 g/dL HANNAH Comment:Testing performed by : [address] [address] Albumin 3.4(L) 3.5 - 5.0 g/dL HANNAH Comment:Testing performed by : [address] [address] Alk phos 120 40 - 130 Units/L HANNAH Comment:Testing performed by : [address] [address] ALT 13 7 - 45 Units/L HANNAH Comment:Testing performed by : [address] [address] AST 14 10 - 45 Units/L HANNAH Comment:Testing performed by : [address] [address] Blood 12/03/2024 10:1 6 AM CDT 12/03/2024 10:21 AM CDT Jaimie Romero MD LAB BLOOD ORDERABLES Final Result HANNAH [address] [place] [address] [place] [address] from Last 3 Months Insurance MEDICARE [facility] MEDICARE [facility] FEDERAL Advance Directives For more information, please contact: [phone] Documents on File Type Date Recorded Patient Cobbler Upper Expl anation ADVANCE DIRECTIVE 12/13/2024 11:42 AM Jono Terrazas ADVANCE DIRECTIVE 12/13/2024 11:42 AM Power of Body Work Auto Trimmer-Medical ADVANCE DIRECTIVE 07/26/2024 8:59 AM POLS T [...] vasopressorsNo internal / external pacemaker Care Teams Barrel Marker Relationship Specialty Start Date End Date Irving Montes MD PCP - General Family Medicine 04/27/18
--- OUTSIDE RECORDS SUMMARY | 2025-02-09 10:51 | XMS_ITS | Encounter Summary ---
Author Organization [facility] Address [address] [place] [address] Care Team Providers Care Secretary Name Role Phone Unavailable Primary Care Provider Unavailabl e Encounter Details Date Type Department Care Team (Late st Contact Info) Description 08/22/2023 Lab Requisition [facility] - DermPath Lab [address] [facility] [place] [id number] [place] [address] [place] [address] Social History Tobacco Use Types Packs/Day Years Used Date Smoking Tobacco: Never Assessed Comments Unknown Sex and Gender Information Value Date Recorded Sex Assigned at Not on file Legal Sex Female 7:04 AM MERCHANDISE COORDINATOR Gender Identity Not on file Sexual Orientation Not on file documented as of this encounter Plan of Treatment Not on file documented as of this encounter Procedures Procedure Name Priority Date/Time Associated Diagnosis Comments DERMATOPATHOLOGY Routine 08/21/2023 3:33 AM MERCHANDISE COORDINATOR documented in this encounter Results * DERMATOPATHOLOGY (08/21/2023 3:33 AM MERCHANDISE COORDINATOR) Case Report Dermatopathology Report Case: [id number] Authorizing Provider: Jamil Salas MD Collected: 08/21/2023 03:33 AM Ordering Location: [facility] D[facility] Lab Received: 08/25/2023 07:09 AM Pathologist: Charlene Yang MD Specimen: Skin, nasal ltip 3 12:08 PM MERCHANDISE COORDINATOR DERMATOPATHOLOGY LABORATORY Final Diagnosis Specimen A. SKIN, nasal tip: DERMAL SCAR RESIDUAL BASAL CELL CARCINOMA NOT IDENTIFIED (L90.5) 3 12:08 PM MERCHANDISE COORDINATOR DERMATOPATHOLOGY LABORATORY at 1208 MERCHANDISE COORDINATOR Clinical History BCC Nodule. Prior Biopsy [id number] 3 12:08 PM [facility] DERMATOPATHOLOGY LABORATORY Gross Description Specimen A: Received is one formalin filled container labeled with the patient's name and designated nasal tip. The specimen consists of a curettage and desiccation biopsy measuring 9x9x2 mm. Jar 0. 3 12:08 PM [facility] DERMATOPATHOLOGY LABORATORY Microscopic Description Specimen A. SKIN, nasal tip: There are fibroblasts and collagen bundles oriented parallel to the skin surface. There are elongated blood vessels, some of which are oriented perpendicular to the skin surface. Abundant hemosiderin is also observed at the base of the fibrosis. No basal cell carcinoma is identified. 3 12:08 PM [facility] DERMATOPATHOLOGY LABORATORY Disclaimer An external and internal positive and negative controls are appropriate for the histochemical, immunohistochemical and immunofluorescence stain(s) in this case (if any), except where stated explicitly. The performance characteristics of the stain(s) cited in this report were developed and its performance characteristic determined by the Dermatopathology Laboratory at [facility], directed by Dr. Anil Willett. These tests need not be, and therefore are not, approved by the [place] Food and Drug Administration. The tests are used for clinical purposes. Billing Codes Specimen Charges Stain Charges 88142 1 3 12:08 PM [facility] DERMATOPATHOLOGY LABORATORY Embedded Images 3 12:08 PM [facility] DERMATOPATHOLOGY LABORATORY Pathology/Cytolo gy TISSUE SPECIMEN FROM SKIN / Unknown 08/21/2023 3:33 AM MERCHANDISE COORDINATOR 08/25/2023 7:09 AM [facility] Jamil Salas MD LAB - PATHOLOGY/CYTOLOGY ORDERAB LES Final Result DERMATOPATHOLOGY LABORATORY [facility] - Department of Dermatology [address] [phone] documented in this encounter Visit Diagnoses Not on filedocumented in this encounter
--- OUTSIDE RECORDS SUMMARY | 2025-02-09 10:51 | XMS_ITS | Clinical Summary ---
Author Organization [facility] [employer] Address [address] [place] [address] Care Team Providers Care Net Fisher Name Role Phone Unavailable Primary Care Provider Unavailabl e Source Comments [facility] [employer],non-owned Affiliates and Associated Physician Practices is amultiple site organization consisting of ambulatory clinics and hospital sitesin [place], [place], [place] and [place]. This disclosure is being madepursuant to the Care Everywhere program and may not contain all information available regarding this patient. 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
--- OUTSIDE RECORDS SUMMARY | 2025-02-09 10:51 | XMS_ITS | Clinical Summary ---
Author Organization 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
--- OUTSIDE RECORDS SUMMARY | 2025-02-09 10:51 | XMS_ITS | Continuity of Care Document ---
Author Organization [facility] Address [address] [place] [address] Phone Care Team Providers Care Animal Nutrition Consultant Name Role Phone Rick Lamb MD Unavailable Unavailable Results Test Name Date and Time Measure Units Reference Range Abnormal Flag Status Comments Panel Description: [facility] Results Facility 533 Unknown H. Pylori 00:00:00 Negative Unknown Advance Directives Directive Yes / No Effective Date File Name No Information Encounters Encounter Description Practice Location Reason(s) For Visit Diagnoses Date Provider Providers Copied on Encounter [facility], [address], [place], [place], [id number] , tel: [phone] Conversion Department PEPTIC ULCER NOSSENILE OSTEOPOROSISGENERAL OSTEOARTHROSISMYALG [place] AND MYOSITIS NOS [address] , [address], [place], [place], [address] . tel: [phone] Family History Family Member Type Diagnosis Age At Onset No Information Payers Payer name Insurance type Covered republican ID Authoriza tion(s) No Information Social History [...]
--- OUTSIDE RECORDS SUMMARY | 2025-02-09 10:51 | XMS_ITS | Encounter Summary ---
Author Organization [facility] Address [address] [place] [address] Care Team Providers Care Crisis Nurse Name Role Phone Teddy Vance MD Primary Care Provider [phone] Encounter Details Date Type Department Care Team (Latest Contact Info) Description 11/22/2003 Outpatient Historical [facility] ALISE Saha Jr., Stevenson Miller MD NO ADDRESS ON FILE SCREENING MAMM-MAILG NEOPL-OTHER (Primary Dx) Social History Tobacco Use Types Packs/Day Years Used Date Smoking Tobacco: Never Assessed Comments Unknown Sex and Gender Information Value Date Recorded Sex Assigned at Not on file Legal Sex Female 4:27 AM IRON MOLDER HELPER Gender Identity Not on file Sexual Orientation Not on file documented as of this encounter Plan of Treatment Not on file documented as of this encounter Visit Diagnoses Diagnosis Other screening mammogram- Primary documented in this encounter Care Teams Crisis Nurse Relationship Specialty Start Date End Date Teddy Vance MD [address] [place] [address] PCP - General 09/04/09 documented as of this encounter
--- OUTSIDE RECORDS SUMMARY | 2025-02-09 10:51 | XMS_ITS | Encounter Summary ---
Author Organization [facility] Address [address] [place] [address] Care Team Providers Care Veterans' Counselor Name Role Phone Unavailable Primary Care Provider Unavailabl e Encounter Details Date Type Department Care Team (Late st Contact Info) Description 07/24/2023 Lab Requisition [facility] - DermPath Lab [address] [facility] [place] [phone] Jamil Salas MD [address] [place] [address] Social History Tobacco Use Types Packs/Day Years Used Date Smoking Tobacco: Never Assessed Comments Unknown Sex and Gender Information Value Date Recorded Sex Assigned at Not on file Legal Sex Female 7:04 AM NURSING UNIT COORDINATOR Gender Identity Not on file Sexual Orientation Not on file documented as of this encounter Plan of Treatment Not on file documented as of this encounter Procedures Procedure Name Priority Date/Time Associated Diagnosis Comments DERMATOPATHOLOGY Routine 07/22/2023 12:0 0 AM NURSING UNIT COORDINATOR documented in this encounter Results * DERMATOPATHOLOGY (07/22/2023 12:00 AM NURSING UNIT COORDINATOR) Case Report Dermatopathology Report Case: [id number] Authorizing Provider: Jamil Salas MD Collected: 07/22/2023 12:00 AM Ordering Location: [facility] Derm[facility] Lab Received: 07/24/2023 09:19 AM Pathologist: Charlene Yang MD Specimen: Skin, nasal tip 3 3:16 PM NURSING UNIT COORDINATOR DERMATOPATHOLOGY LABORATORY Final Diagnosis Specimen A. SKIN, nasal tip: BASAL CELL CARCINOMA, NODULAR TYPE (C44.311) 3 3:16 PM NURSING UNIT COORDINATOR DERMATOPATHOLOGY LABORATORY at 1516 NURSING UNIT COORDINATOR Clinical History R/O BCC 3:16 PM [facility] DERMATOPATHOLOGY LABORATORY Gross Description Specimen A: Received is one formalin filled container labeled with the patient's name and designated nasal tip. The specimen consists of a (3) pieces shave biopsy measuring 1x4x1, 6x5x1, 3x3x1 mm. Jar 0. 3:16 PM [facility] DERMATOPATHOLOGY LABORATORY Microscopic Description Specimen A. SKIN, nasal tip: Within the dermis there are aggregates of basaloid cells with a high nuclear to cytoplasmic ratio and peripheral palisading. 3 3:16 PM [facility] DERMATOPATHOLOGY LABORATORY Disclaimer An external and internal positive and negative controls are appropriate for the histochemical, immunohistochemical and immunofluorescence stain(s) in this case (if any), except where stated explicitly. The performance characteristics of the stain(s) cited in this report were developed and its performance characteristic determined by the Dermatopathology Laboratory at [facility], directed by Dr. Anil Willett. These tests need not be, and therefore are not, approved by the [place] Food and Drug Administration. The tests are used for clinical purposes. Billing Codes Specimen Charges Stain Charges 77507 1 3 3:16 PM NURSING UNIT COORDINATOR DERMATOPATHOLOGY LABORATORY Embedded Images 3 3:16 PM [facility] DERMATOPATHOLOGY LABORATORY Pathology/Cytolog y TISSUE SPECIMEN FROM SKIN / Unknown 07/22/2023 07/24/2023 9:19 AM NURSING UNIT COORDINATOR Jamil Salas MD LAB - PATHOLOGY/CYTOLOGY ORDERAB LES Final Result DERMATOPATHOLOGY LABORATORY [facility] - Department of Dermatology [address] [phone] documented in this encounter Visit Diagnoses Not on filedocumented in this encounter
--- OUTSIDE RECORDS SUMMARY | 2025-02-09 10:51 | XMS_ITS | Encounter Summary ---
[facility] Organization [facility] Address [address] [place] [address] Care Team Providers Care Otologist Name Role Phone Teddy Vance MD Primary Care Provider [phone] Encounter Details Date Type Department Care Team (Latest Contact Info) Description 07/05/2008 Outpatient Historical [facility] ALISE Aquino Jr., Stevenson Miller MD NO ADDRESS ON FILE Other Screening Mammogram Social History Tobacco Use Types Packs/Day Years Used Date Smoking Tobacco: Never Assessed Comments Unknown Sex and Gender Information Value Date Recorded Sex Assigned at Not on file Legal Sex Female 4:27 AM REPORT ANALYST Gender Identity Not on file Sexual Orientation [...] PM CDT Narrative 07/05/2008 8:31 PM CDT [facility] [address] [place], [place] [address] Admit Date: 07/05/2008 ERVIN SEVILLA Sex: F Admit Prov: STEVENSON AQUINO Date: 1935 Primary Care Prov: CMRN: [id number] Room: VIPIN SSN: [id number] IMAGING SERVICES Ordering Prov: STEVENSON AQUINO Accession Number: [id number] Interpretation BILATERAL FULL FIELD DIGITAL SCREENING MAMMOGRAM [...] AMK Procedure Note Dolly Cortes - 07/05/2008 [facility] [address], [place] [address] Admit Date: 07/05/2008 ERVIN SEVILLA Sex: F Admit Prov: STEVENSON AQUINO Date: 1935 Primary Care Prov: CMRN: [id number] [facility] [address] [place] [address] IMAGING SERVICES Ordering Prov: STEVENSON AQUINO Interpretation [...] mammogram documented in this encounter Care Teams Otologist Relationship Specialty Start Date End Date Teddy Vance MD [address] [facility] [address] [place] [address] PCP - General 09/04/09 documented as of this encounter
[2025-02-09 11:21] LABS: Basophils Absolute Auto 0.1 K/mm3 (0.0-0.1); Basophils Percent Auto 0.7 % (0.2-1.2); Eosinophils Absolute Auto 0.3 K/mm3 (0-0.3); Eosinophils Percent Auto 2.5 % (0-4.4); Hematocrit 31.8 % (37.0-47.0); Hemoglobin 9.8 g/dL (12.0-15.0); Immature Granulocyte Absolute 0.32 K/mm3 (0.00-0.031); Immature Granulocyte Percent A 2.4 % (0-0.5); Lymphocytes Absolute Auto 1.03 K/mm3 (0.9-3.2); Lymphocytes Percent Auto 7.7 % (18.3-44.2); Mean Corpuscular HGB Conc 30.8 g/dl (32-36); Mean Corpuscular Hemoglobin 27.6 pg (26-34); Mean Corpuscular Volume 89.6 fl (80-100); Mean Platelet Volume 8.8 fl (7.4-10.4); Monocytes Absolute Auto 1.3 K/mm3 (0.1-0.6); Monocytes Percent Auto 9.4 % (2.6-8.5); Neutrophils Absolute Auto 10.3 K/mm3 (1.3-6.7); Neutrophils Percent Auto 77.3 % (45.5-73.1); Platelet Count Result 444 k/mm3 (150-375); Red Blood Count 3.55 M/mm3 (4.2-5.4); Red Cell Distribution Width 14.6 % (11.5-14.5); White Blood Count 13.4 K/mm3 (4.5-10.0)
[2025-02-09 11:35] LABS: Anion Gap 8 mmol/L (4-12); Blood Urea Nitrogen 29 mg/dL (7-17); Calcium 9.6 mg/dL (8.4-10.2); Carbon Dioxide 28 mmol/L (22-30); Chloride 103 mmol/L (98-107); Estimated Glomerular Filt Rate 37; Glucose 90 mg/dL (65-110); Potassium 4.9 mmol/L (3.4-5.0); Sodium 139 mmol/L (137-145)
== END 2025-02-09 10:44 | disposition home or self-care (01) ==
PROVIDERS: PCP Family Medicine; Visit Provider Family Medicine
DX: N39.0 Urinary tract infection, site not specified (principal); N18.4 Chronic kidney disease, stage 4 (severe); D63.1 Anemia in chronic kidney disease; R30.0 Dysuria
CPT/HCPCS: 36415; 80048; 85025; 87086; 99212; G0463

== ENCOUNTER 2025-02-12 11:30 | Outpatient (CLI) | payer MEDICARE, BC, SELFPAY ==
--- OUTSIDE RECORDS SUMMARY | 2025-02-12 11:34 | XMS_ITS | Clinical Summary ---
Author Organization [facility] Address [address], [place] [address] Phone Care Team Providers Care Convention Manager Name Role Phone Irving Montes MD Primary Care Provider [phone] Allergies Active Allergy Reactions Criticality Noted Date [...] DAY 15 tablet 4 2 Active Pancrelipase, Wiv-Muuz-Ebor, (Zenpep) 78923-036346 units capsule delayed-releas e particles TAKE 2 [...] 06/29/2016, 07/03/2015, Additional history exists Insurance MEDICARE [facility] Care Teams Convention Manager Relationship Specialty Start Date End Date Irving Montes MD [address] [place] [phone] PCP - General Family Medicine 09/06/19
--- OUTSIDE RECORDS SUMMARY | 2025-02-12 11:34 | XMS_ITS | Referral Summary ---
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, 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, with heart failure (HCC); Bilateral carotid artery stenosis 12/03/2024 9:58 AM CDT - 12/10/2024 5:42 PM CDT Hospital Encounter [place] [address] Med Surg [facility] [place] [address] Jaimie Romero MD Ali, Md Shahin, MD Paruchuri, Tharun, MD Singh, Supriya, MD Lopez, Sean Encinas MD Left leg cellulitis (Primary Dx); COLIN (acute kidney injury) [N17.9]; Chronic heart failure with preserved ejection fraction (HCC) [I50.32]; Depression, unspecified depression type [F32.A]; Hyperkalemia [E87.5]; Primary hypertension [I10]; Acute kidney injury superimposed on chronic kidney disease Discharge Disposition: Discharge to SNF 11/19/2024 Orders Only [facility] Medical [facility] Vascular and Vein Surgery [address] [place] [address] Los Escobar MD Occlusion of right carotid artery (Primary Dx); Stenosis of left carotid artery 11/18/2024 11:00 AM CDT Office Visit [facility] Vascular and Vein Surgery [address] [place] [address] Polina Santiago PA Occlusion and [...] 1 tablet (75 mcg total) by mouth ceiling cleaner before breakfast 11/21/19 21 Active ondansetron (ZOFRAN) [...] 07/13/2020 Assessment & Plan (11/09/2020 6:57 PM STUDENT SERVICES DEAN): Impression: Chronic kidney disease which is followed by outside institution door person. Patient wishes to have 2nd opinion and to combine care at our hospital. Plan: Referral to [facility] [place] for further evaluation of her chronic kidney disease. Chronic eczematous otitis externa of both ears 0 03/30/2020 Other otitis externa, unspecified ear 03/30/2020 Hypertension 02/19/2019 Overview (02/19/2019): Hypertension Assessment & Plan (11/09/2020 6:55 PM STUDENT SERVICES DEAN): Impression: Stable chronic hypertension. Plan: Medications reviewed and recommend continuing daily antihypertensive regimen as directed by patient's primary care physician. Assessment & Plan (02/19/2019 1:16 PM CDT): Stable hypertension control with use of medications. Plan: Continue management as per primary care provider. 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 Never 12/03/2024 Do you belong to any clubs o r organizations such as presybeterian groups, unions, fraternal or athletic groups, or [...] place to sleep or slept in a halfway (including now)? No 05/09/2023 PHQ-9 Answer Date [...] any time in the past 12 m [facility], were you homeless or living in a halfway (including now)? No 12/03/2024 Personal Safety Answer Date Recorded Have you ever been in or are you currently in a harmful physical or emotional relationship or is someone making you feel afraid or unsafe? Denies 12/03/2024 Comments No Sex and Gender Information Value Date Recorded Sex Assigned at Not on file Legal Sex Female 11:52 PM STUDENT SERVICES DEAN Gender Identity Not on file Sexual Orientation [...] was last reviewed 2021. Testing performed by: [address] [address] Blood 12/10/2024 3:13 AM CDT 12/10/2024 3:18 AM CDT us Nika Chowdhury NP LAB BLOOD ORDERABLES Final Re sult [facility] [address] Department [place] [address] * (ABNORMAL) Differential, auto (12/10/2024 3:13 AM CDT) Neutrophil abs 6.87(H) 1.50 - 6.50 K/cumm Comment:Testing performed by : [address] [address] Imm gran abs 0.12(H) 0.00 - 0.10 K/cumm [facility] Comment:Testing performed by : [address] [address] Lymphocyte abs 1.69 0.80 - 3.30 K/cumm [facility] Comment:Testing performed by : [address] [address] Monocyte abs 0.90(H) 0.20 - 0.80 K/cumm [facility] Comment:Testing performed by : [address] [address] Eosinophil abs 0.18 0.00 - 0.50 K/cumm [facility] Comment:Testing performed by : [address] [address] Basophil abs 0.05 0.00 - 0.10 K/cumm [facility] Comment:Testing performed by : [address] [address] Neutrophil pct 70.1 % [facility] Comment: Interpretive Data Percent cell count reference ranges are not reported, since discordance with absolute values may lead to misinterpretation of CBC data. Current Interpretive Data was last revised on 2017. Testing performed by: [address] [address] Imm gran pct 1.2 % [facility] [place] Comment: Interpretive Data Percent cell count reference ranges are not reported, since discordance with absolute values may lead to misinterpretation of CBC data. Current Interpretive Data was last revised on 2017. Testing performed by: [address] [address] Lymphocyte pct 17.2 % [facility] [place] Comment: Interpretive Data Percent cell count reference ranges are not reported, since discordance with absolute values may lead to misinterpretation of CBC data. Current Interpretive Data was last revised on 2017. Testing performed by: [address] [address] Monocyte pct 9.2 % [facility] [place] Comment: Interpretive Data Percent cell count reference ranges are not reported, since discordance with absolute values may lead to misinterpretation of CBC data. Current Interpretive Data was last revised on 2017. Testing performed by: [address] [address] Eosinophil pct 1.8 % [facility] Comment: Interpretive Data Percent cell count reference ranges are not reported, since discordance with absolute values may lead to misinterpretation of CBC data. Current Interpretive Data was last revised on 2017. Testing performed by: [address] [address] Basophil pct 0.5 % [facility] [place] Comment: Interpretive Data Percent cell count reference ranges are not reported, since discordance with absolute values may lead to misinterpretation of CBC data. Current Interpretive Data was last revised on 2017. Testing performed by: [address] [address] Blood 12/10/2024 3:13 AM CDT 12/10/2024 3:18 AM CDT Nika Chowdhury NP LAB BLOOD ORDERABLES Final Re sult [facility] [address] Department [place] [address] * (ABNORMAL) CBC with auto differential (12/10/2024 3:13 AM CDT) WBC 9.81 3.80 - 9.90 K/cumm Comment:Testing performed by : [address] [address] Hgb 9.9(L) 11.9 - 15.5 g/dL [facility] Comment:Testing performed by : [address] [address] Hct 29.6(L) 35.6 - 45.5 % [facility] Comment:Testing performed by : [address] [address] Plt 397 150 - 400 K/cumm [facility] Comment:Testing performed by : [address] [address] MPV 8.5(L) 9.1 - 12.3 fL [facility] Comment:Testing performed by : [address] [address] RBC 3.47(L) 3.90 - 5.20 M/cumm [facility] Comment:Testing performed by : [address] [address] MCV 85.3 81.3 - 96.4 fL [facility] Comment:Testing performed by : [address] [address] MCH 28.5 27.1 - 33.3 pg [facility] Comment:Testing performed by : [address] [address] MCHC 33.4 32.3 - 35.7 g/dL [facility] Comment:Testing performed by : [address] [address] RDW CV 14.5 11.1 - 14.9 % [facility] Comment:Testing performed by : [address], [address] RDW SD 44.8 35.7 - 48.1 fL [facility] LEA Comment:Testing performed by : [address] [address] NRBC abs 0.00 0.00 - 0.01 K/cumm [facility] LEA Comment:Testing performed by : [address] [address] Blood 12/10/2024 3:13 AM CDT 12/10/2024 3:18 AM CDT Nika Chowdhury NP LAB BLOOD ORDERABLES Final Re sult [facility] LEA [address] Department [place] [address] * (ABNORMAL) Basic metabolic panel (12/10/2024 3:13 AM CDT) Sodium 133(L) 135 - 145 mmol/L Comment:Testing performed by : [address] [address] Potassium, pl 3.9 3.3 - 4.9 mmol/L [facility] Comment:Testing performed by : [address] [address] Chloride 95(L) 97 - 110 mmol/L [facility] Comment:Testing performed by : [address] [address] CO2 27 22 - 32 mmol/L [facility] Comment:Testing performed by : [address] [address] Anion gap 11 2 - 15 mmol/L [facility] Comment:Testing performed by : [address] [address] BUN 25 6 - 25 mg/dL [facility] Comment:Testing performed by : [address] [address] Creatinine 1.57(H) 0.60 - 1.10 mg/dL [facility] LEA Comment:Testing performed by : [address] [address] Glucose 116 70 - 199 mg/dL [facility] [...] was last revised 2022. Testing performed by: [facility], [address] [place] [address]., [address] Calcium 9.5 8.5 - 10.3 mg/dL [facility] Comment:Testing performed by : [address] [address] Blood 12/10/2024 3:13 AM CDT 12/10/2024 3:18 AM CDT Nika Chowdhury NP LAB BLOOD ORDERABLES Final Re sult [facility] [address] Department [place] [address] * XR Tibia Fibula Left [...] Teddy Mei M.D. KR: PHAM Report ID: [id number] Reading Location: [id number] Procedure Note Teddy Mei MD - 12/09/2024 [...] Teddy Mei M.D. KR: PHAM Report ID: [id number] Reading Location: [id number] Sean Ngo MD IMG XR PROCEDURES Final [...] was last reviewed 2021. Testing performed by: [address] [address] Blood 12/09/2024 4:02 AM CDT 12/09/2024 4:50 AM CDT us Kaushiktaliagerson Chowdhury NP LAB BLOOD ORDERABLES Final Re sult [place] [id number] [facility] Department [place] [address] * (ABNORMAL) Differential, auto (12/09/2024 4:02 AM CDT) Neutrophil abs 6.59(H) 1.50 - 6.50 K/cumm Comment:Testing performed by : [address] [address] Imm gran abs 0.19(H) 0.00 - 0.10 K/cumm [facility] Comment:Testing performed by : [address] [address] Lymphocyte abs 1.70 0.80 - 3.30 K/cumm [facility] Comment:Testing performed by : [address] [address] Monocyte abs 0.92(H) 0.20 - 0.80 K/cumm [facility] Comment:Testing performed by : [address] [address] Eosinophil abs 0.25 0.00 - 0.50 K/cumm [facility] Comment:Testing performed by : [address] [address] Basophil abs 0.07 0.00 - 0.10 K/cumm [facility] Comment:Testing performed by : [address] [address] Neutrophil pct 67.7 % [facility] Comment: Interpretive Data Percent cell count reference ranges are not reported, since discordance with absolute values may lead to misinterpretation of CBC data. Current Interpretive Data was last revised on 2017. Testing performed by: [address] [address] Imm gran pct 2.0 % [facility] Comment: Interpretive Data Percent cell count reference ranges are not reported, since discordance with absolute values may lead to misinterpretation of CBC data. Current Interpretive Data was last revised on 2017. Testing performed by: [address] [address] Lymphocyte pct 17.5 % [facility] Comment: Interpretive Data Percent cell count reference ranges are not reported, since discordance with absolute values may lead to misinterpretation of CBC data. Current Interpretive Data was last revised on 2017. Testing performed by: [address] [address] Monocyte pct 9.5 % [facility] Comment: Interpretive Data Percent cell count reference ranges are not reported, since discordance with absolute values may lead to misinterpretation of CBC data. Current Interpretive Data was last revised on 2017. Testing performed by: [address] [address] Eosinophil pct 2.6 % [facility] Comment: Interpretive Data Percent cell count reference ranges are not reported, since discordance with absolute values may lead to misinterpretation of CBC data. Current Interpretive Data was last revised on 2017. Testing performed by: [address] [address] Basophil pct 0.7 % [facility] Comment: Interpretive Data Percent cell count reference ranges are not reported, since discordance with absolute values may lead to misinterpretation of CBC data. Current Interpretive Data was last revised on 2017. Testing performed by: [address] [address] Blood 12/09/2024 4:02 AM CDT 12/09/2024 4:49 AM CDT us Nika Chowdhury NP LAB BLOOD ORDERABLES Final Re sult [facility] LEA [address] Department [place] [address] * (ABNORMAL) CBC with auto differential (12/09/2024 4:02 AM CDT) [facility] WBC 9.72 3.80 - 9.90 K/cumm Comment:Testing performed by : [address] [address] Hgb 10.1(L) 11.9 - 15.5 g/dL [facility] Comment:Testing performed by : [address] [address] Hct 30.9(L) 35.6 - 45.5 % [facility] Comment:Testing performed by : [address] [address] Plt 442(H) 150 - 400 K/cumm [facility] Comment:Testing performed by : [address], [address] MPV 9.3 9.1 - 12.3 fL [facility] Comment:Testing performed by : [address] [address] RBC 3.58(L) 3.90 - 5.20 M/cumm [facility] Comment:Testing performed by : [address] [address] MCV 86.3 81.3 - 96.4 fL [facility] Comment:Testing performed by : [address] [address] MCH 28.2 27.1 - 33.3 pg [facility] Comment:Testing performed by : [address], [address] MCHC 32.7 32.3 - 35.7 g/dL [facility] Comment:Testing performed by : [address], [address] RDW CV 14.6 11.1 - 14.9 % [facility] Comment:Testing performed by : [address], [address] RDW SD 45.8 35.7 - 48.1 fL [facility] Comment:Testing performed by : [address] [address] NRBC abs 0.00 0.00 - 0.01 K/cumm [facility] Comment:Testing performed by : [address] [address] Blood 12/09/2024 4:02 AM CDT 12/09/2024 4:49 AM CDT Nika Chowdhury NP LAB BLOOD ORDERABLES Final Re sult [facility] [address] Department [place] [address] * (ABNORMAL) Basic metabolic panel (12/09/2024 4:02 AM CDT) Sodium 135 135 - 145 mmol/L Comment:Testing performed by : [address] [address] Potassium, pl 3.8 3.3 - 4.9 mmol/L [facility] Comment:Testing performed by : [address] [address] Chloride 95(L) 97 - 110 mmol/L [facility] Comment:Testing performed by : [address] [address] CO2 28 22 - 32 mmol/L [facility] Comment:Testing performed by : [address] [address] Anion gap 12 2 - 15 mmol/L [facility] Comment:Testing performed by : [address] [address] BUN 28(H) 6 - 25 mg/dL [facility] Comment:Testing performed by : [address] [address] Creatinine 1.81(H) 0.60 - 1.10 mg/dL [facility] Comment:Testing performed by : [address] [address] Glucose 105 70 - 199 mg/dL [facility] [...] was last revised 2022. Testing performed by: [facility], [address] [place] [address]., [address] Calcium 9.6 8.5 - 10.3 mg/dL [facility] LEA Comment:Testing performed by : [address] [address] Blood 12/09/2024 4:02 AM CDT 12/09/2024 4:49 AM CDT us Nika Chowdhury NP LAB BLOOD ORDERABLES Final Re sult [facility] [address] Department of Laboratories [place], [place] [id number] * (ABNORMAL) eGFR (12/08/2024 4:44 AM CDT) [...] was last reviewed 2021. Testing performed by: [address] [address] Blood 12/08/2024 4:44 AM CDT 12/08/2024 5:25 AM CDT us Nika Chowdhury NP LAB BLOOD ORDERABLES Final Re sult [facility] [address] Department [place] [address] * (ABNORMAL) Differential, auto (12/08/2024 4:44 AM CDT) Neutrophil abs 6.92(H) 1.50 - 6.50 K/cumm Comment:Testing performed by : [address] [address] Imm gran abs 0.24(H) 0.00 - 0.10 K/cumm [facility] Comment:Testing performed by : [address] [address] Lymphocyte abs 1.61 0.80 - 3.30 K/cumm [facility] Comment:Testing performed by : [address] [address] Monocyte abs 0.99(H) 0.20 - 0.80 K/cumm [facility] Comment:Testing performed by : [address] [address] Eosinophil abs 0.20 0.00 - 0.50 K/cumm [facility] Comment:Testing performed by : [address] [address] Basophil abs 0.06 0.00 - 0.10 K/cumm HANNHA Comment:Testing performed by : [address] [address] Neutrophil pct 69.0 % [facility] Comment: Interpretive Data Percent cell count reference ranges are not reported, since discordance with absolute values may lead to misinterpretation of CBC data. Current Interpretive Data was last revised on 2017. Testing performed by: [address] [address] Imm gran pct 2.4 % [facility] Comment: Interpretive Data Percent cell count reference ranges are not reported, since discordance with absolute values may lead to misinterpretation of CBC data. Current Interpretive Data was last revised on 2017. Testing performed by: [address] [address] Lymphocyte pct 16.1 % [facility] [place] Comment: Interpretive Data Percent cell count reference ranges are not reported, since discordance with absolute values may lead to misinterpretation of CBC data. Current Interpretive Data was last revised on 2017. Testing performed by: [address] [address] Monocyte pct 9.9 % [facility] Comment: Interpretive Data Percent cell count reference ranges are not reported, since discordance with absolute values may lead to misinterpretation of CBC data. Current Interpretive Data was last revised on 2017. Testing performed by: [address] [address] Eosinophil pct 2.0 % [facility] Comment: Interpretive Data Percent cell count reference ranges are not reported, since discordance with absolute values may lead to misinterpretation of CBC data. Current Interpretive Data was last revised on 2017. Testing performed by: [address] [address] Basophil pct 0.6 % [facility] Comment: Interpretive Data Percent cell count reference ranges are not reported, since discordance with absolute values may lead to misinterpretation of CBC data. Current Interpretive Data was last revised on 2017. Testing performed by: [address] [address] Blood 12/08/2024 4:44 AM CDT 12/08/2024 5:32 AM CDT us Nika Chowdhury NP LAB BLOOD ORDERABLES Final Re sult [facility] LEA [address] Department [place] [address] * (ABNORMAL) CBC with auto differential (12/08/2024 4:44 AM CDT) WBC 10.02(H) 3.80 - 9.90 K/cumm Comment:Testing performed by : [address] [address] Hgb 10.8(L) 11.9 - 15.5 g/dL [facility] Comment:Testing performed by : [address] [address] Hct 32.5(L) 35.6 - 45.5 % [facility] Comment:Testing performed by : [address] [address] Plt 466(H) 150 - 400 K/cumm [facility] Comment:Testing performed by : [address] [address] MPV 9.0(L) 9.1 - 12.3 fL [facility] Comment:Testing performed by : [address], [address] RBC 3.78(L) 3.90 - 5.20 M/cumm [facility] Comment:Testing performed by : [address], [address] MCV 86.0 81.3 - 96.4 fL [facility] Comment:Testing performed by : [address], [address] MCH 28.6 27.1 - 33.3 pg [facility] Comment:Testing performed by : [address], [address] MCHC 33.2 32.3 - 35.7 g/dL AHNNAH Comment:Testing performed by : [address], [address] RDW CV 14.7 11.1 - 14.9 % [facility] Comment:Testing performed by : [address], [address] RDW SD 46.1 35.7 - 48.1 fL [facility] Comment:Testing performed by : [address], [address] NRBC abs 0.00 0.00 - 0.01 K/cumm [facility] Comment:Testing performed by : [address], [address] Blood 12/08/2024 4:44 AM CDT 12/08/2024 5:32 AM CDT us Nika Chowdhury NP LAB BLOOD ORDERABLES [facility] [address] Department [place] [address] * (ABNORMAL) Basic metabolic panel (12/08/2024 4:44 AM CDT) Sodium 135 135 - 145 mmol/L Comment:Testing performed by : [address] [address] Potassium, pl 4.0 3.3 - 4.9 mmol/L [facility] Comment:Testing performed by : [address] [address] Chloride 95(L) 97 - 110 mmol/L [facility] Comment:Testing performed by : [address] [address] CO2 28 22 - 32 mmol/L [facility] Comment:Testing performed by : [address] [address] Anion gap 12 2 - 15 mmol/L [facility] Comment:Testing performed by : [address] [address] BUN 26(H) 6 - 25 mg/dL [facility] Comment:Testing performed by : [address] [address] Creatinine 1.83(H) 0.60 - 1.10 mg/dL [facility] Comment:Testing performed by : [address] [address] Glucose 113 70 - 199 mg/dL HANNAH [...] was last revised 2022. Testing performed by: [facility], [address] [place] [address]., [address] Calcium 9.6 8.5 - 10.3 mg/dL [facility] LEONORA Comment:Testing performed by : [address] [address] Blood 12/08/2024 4:44 AM CDT 12/08/2024 5:25 AM CDT us Nika Chowdhury NP LAB BLOOD ORDERABLES Final Re sult [facility] LEA [address] [facility] [facility] Department [place] [address] * (ABNORMAL) eGFR (12/07/2024 4:30 AM CDT) [...] was last reviewed 2021. Testing performed by: [address] [address] Blood 12/07/2024 4:30 AM CDT 12/07/2024 5:09 AM CDT us Nika Chowdhury NP LAB BLOOD ORDERABLES Final Re sult [facility] [address] Department [place] [address] * (ABNORMAL) Differential, auto (12/07/2024 4:30 AM CDT) Neutrophil abs 7.8(H) 1.5 - 6.5 K/cumm Comment:Testing performed by : [address] [address] Imm gran abs 0.2(H) 0.0 - 0.1 K/cumm [facility] Comment:Testing performed by : [address] [address] Lymphocyte abs 1.5 0.8 - 3.3 K/cumm [facility] Comment:Testing performed by : [address] [address] Monocyte abs 1.1(H) 0.2 - 0.8 K/cumm [facility] Comment:Testing performed by : [address] [address] Eosinophil abs 0.4 0.0 - 0.5 K/cumm HANANH Comment:Testing performed by : [address] [address] Basophil abs 0.1 0.0 - 0.1 K/cumm [facility] Comment:Testing performed by : [address] [address] Neutrophil pct 71.0 % [facility] Comment: Interpretive Data Percent cell count reference ranges are not reported, since discordance with absolute values may lead to misinterpretation of CBC data. Current Interpretive Data was last revised on 2017. Testing performed by: [address] [address] Imm gran pct 2.0 % [facility] Comment: Interpretive Data Percent cell count reference ranges are not reported, since discordance with absolute values may lead to misinterpretation of CBC data. Current Interpretive Data was last revised on 2017. Testing performed by: [address] [address] Lymphocyte pct 13.6 % [facility] Comment: Interpretive Data Percent cell count reference ranges are not reported, since discordance with absolute values may lead to misinterpretation of CBC data. Current Interpretive Data was last revised on 2017. Testing performed by: [address] [address] Monocyte pct 9.6 % [facility] Comment: Interpretive Data Percent cell count reference ranges are not reported, since discordance with absolute values may lead to misinterpretation of CBC data. Current Interpretive Data was last revised on 2017. Testing performed by: [address] [address] Eosinophil pct 3.2 % [facility] Comment: Interpretive Data Percent cell count reference ranges are not reported, since discordance with absolute values may lead to misinterpretation of CBC data. Current Interpretive Data was last revised on 2017. Testing performed by: [address] [address] Basophil pct 0.6 % [facility] Comment: Interpretive Data Percent cell count reference ranges are not reported, since discordance with absolute values may lead to misinterpretation of CBC data. Current Interpretive Data was last revised on 2017. Testing performed by: [address] [address] Blood 12/07/2024 4:30 AM CDT 12/07/2024 5:18 AM CDT Nika Chowdhury NP LAB BLOOD ORDERABLES Final Re sult HANNAH [address] [facility] [place] [address] * (ABNORMAL) CBC with auto differential (12/07/2024 4:30 AM CDT) WBC 11.0(H) 3.8 - 9.9 K/cumm Comment:Testing performed by : [address] [address] Hgb 10.4(L) 11.9 - 15.5 g/dL HANNAH Comment:Testing performed by : [address] [address] Hct 32.4(L) 35.6 - 45.5 % HANNAH Comment:Testing performed by : [address] [address] Plt 440(H) 150 - 400 K/cumm HANNAH Comment:Testing performed by : [address] [address] MPV 9.5 9.1 - 12.3 fL HANNAH Comment:Testing performed by : [address] [address] RBC 3.75(L) 3.90 - 5.20 M/cumm HANNAH Comment:Testing performed by : [address] [address] MCV 86.4 81.3 - 96.4 fL HANNAH Comment:Testing performed by : [address] [address] MCH 27.7 27.1 - 33.3 pg HANNAH Comment:Testing performed by : [address] [address] MCHC 32.1(L) 32.3 - 35.7 g/dL HANNAH Comment:Testing performed by : [address] [address] RDW CV 14.7 11.1 - 14.9 % HANNAH Comment:Testing performed by : [address] [address] RDW SD 46.4 35.7 - 48.1 fL [facility] Comment:Testing performed by : [address] [address] NRBC abs 0.00 0.00 - 0.01 K/cumm HANNAH Comment:Testing performed by : [address] [address] Blood 12/07/2024 4:30 AM CDT 12/07/2024 5:18 AM CDT us Nika Chowdhury NP LAB BLOOD ORDERABLES Final Re sult HANNAH [address] [facility] Department [place] [address] * (ABNORMAL) Basic metabolic panel (12/07/2024 4:30 AM CDT) Sodium 138 135 - 145 mmol/L Comment:Testing performed by : [address] [address] Potassium, pl 4.3 3.3 - 4.9 mmol/L HANNAH Comment:Testing performed by : [address] [address] Chloride 97 97 - 110 mmol/L HANNAH Comment:Testing performed by : [address] [address] CO2 28 22 - 32 mmol/L HANNAH Comment:Testing performed by : [address] [address] Anion gap 13 2 - 15 mmol/L HANNAH Comment:Testing performed by : [address] [address] BUN 24 6 - 25 mg/dL HANNAH Comment:Testing performed by : [address] [address] Creatinine 1.49(H) 0.60 - 1.10 mg/dL HANNAH Comment:Testing performed by : [address] [address] Glucose 114 70 - 199 mg/dL HANNAH [...] was last revised 2022. Testing performed by: [facility], [address] [place] [address]., [address] Calcium 9.8 8.5 - 10.3 mg/dL HANNAH LEA Comment:Testing performed by : [facility], [address] [place] [address]., [address] Blood 12/07/2024 4:30 AM CDT 12/07/2024 5:09 AM CDT Nika Chowdhury NP LAB BLOOD ORDERABLES Final Re sult HANNAH LEA [address] [facility] Department [place] [address] * (ABNORMAL) eGFR (12/06/2024 5:07 [...] was last reviewed 2021. Testing performed by: [address] [address] Blood 12/06/2024 5:07 AM CDT 12/06/2024 5:49 AM CDT Nika Chowdhury [employer] LAB BLOOD ORDERABLES Final Re sult HANNAH [address] [facility] Department [place] [address] * (ABNORMAL) Differential, auto (12/06/2024 5:07 AM CDT) Neutrophil abs 6.1 1.5 - 6.5 K/cumm Comment:Testing performed by : [address] [address] Imm gran abs 0.2(H) 0.0 - 0.1 K/cumm HANNAH Comment:Testing performed by : [address] [address] Lymphocyte abs 1.6 0.8 - 3.3 K/cumm HANNAH Comment:Testing performed by : [address] [address] Monocyte abs 0.9(H) 0.2 - 0.8 K/cumm HANNAH Comment:Testing performed by : [address] [address] Eosinophil abs 0.4 0.0 - 0.5 K/cumm [facility] Comment:Testing performed by : [address] [address] Basophil abs 0.1 0.0 - 0.1 K/cumm [facility] Comment:Testing performed by : [address] [address] Neutrophil pct 65.2 % [facility] Comment: Interpretive Data Percent cell count reference ranges are not reported, since discordance with absolute values may lead to misinterpretation of CBC data. Current Interpretive Data was last revised on 2017. Testing performed by: [address] [address] Imm gran pct 2.4 % HANNAH Comment: Interpretive Data Percent cell count reference ranges are not reported, since discordance with absolute values may lead to misinterpretation of CBC data. Current Interpretive Data was last revised on 2017. Testing performed by: [address] [address] Lymphocyte pct 17.4 % HANNAH Comment: Interpretive Data Percent cell count reference ranges are not reported, since discordance with absolute values may lead to misinterpretation of CBC data. Current Interpretive Data was last revised on 2017. Testing performed by: [address] [address] Monocyte pct 9.9 % HANNAH Comment: Interpretive Data Percent cell count reference ranges are not reported, since discordance with absolute values may lead to misinterpretation of CBC data. Current Interpretive Data was last revised on 2017. Testing performed by: [address] [address] Eosinophil pct 4.5 % HANNAH Comment: Interpretive Data Percent cell count reference ranges are not reported, since discordance with absolute values may lead to misinterpretation of CBC data. Current Interpretive Data was last revised on 2017. Testing performed by: [address] [address] Basophil pct 0.6 % HANNAH Comment: Interpretive Data Percent cell count reference ranges are not reported, since discordance with absolute values may lead to misinterpretation of CBC data. Current Interpretive Data was last revised on 2017. Testing performed by: [address] [address] Blood 12/06/2024 5:07 AM CDT 12/06/2024 5:49 AM CDT Nika Chowdhury NP LAB BLOOD ORDERABLES Final Re sult [facility] [address] [facility] Department [place] [address] * (ABNORMAL) CBC with auto differential (12/06/2024 5:07 AM CDT) WBC 9.3 3.8 - 9.9 K/cumm Comment:Testing performed by : [address] [address] Hgb 9.7(L) 11.9 - 15.5 g/dL HANNAH Comment:Testing performed by : [address] [place] [address] Hct 30.0(L) 35.6 - 45.5 % HANNAH Comment:Testing performed by : [address], [address] Plt 410(H) 150 - 400 K/cumm HANNAH Comment:Testing performed by : [address], [address] MPV 9.1 9.1 - 12.3 fL HANNAH Comment:Testing performed by : [address], [address] RBC 3.43(L) 3.90 - 5.20 M/cumm HANNAH Comment:Testing performed by : [address], [address] MCV 87.5 81.3 - 96.4 fL HANNAH Comment:Testing performed by : [address], [address] MCH 28.3 27.1 - 33.3 pg HANNAH Comment:Testing performed by : [address], [address] MCHC 32.3 32.3 - 35.7 g/dL HANNAH Comment:Testing performed by : [address], [address] RDW CV 15.0(H) 11.1 - 14.9 % HANNAH Comment:Testing performed by : [address], [address] RDW SD 47.5 35.7 - 48.1 fL HANNAH Comment:Testing performed by : [address], [address] NRBC abs 0.00 0.00 - 0.01 K/cumm HANNAH Comment:Testing performed by : [address], [address] Blood 12/06/2024 5:07 AM CDT 12/06/2024 5:49 AM CDT Nika Chowdhury NP LAB BLOOD ORDERABLES Final Re sult HANNAH [address] [facility] Department [place] [address] * (ABNORMAL) Basic metabolic panel (12/06/2024 5:07 AM CDT) Sodium 137 135 - 145 mmol/L Comment:Testing performed by : [address] [address] Potassium, pl 4.4 3.3 - 4.9 mmol/L HANNAH Comment:Testing performed by : [address] [address] Chloride 97 97 - 110 mmol/L HANNAH Comment:Testing performed by : [address] [address] CO2 30 22 - 32 mmol/L HANNAH Comment:Testing performed by : [address] [address] Anion gap 10 2 - 15 mmol/L HANNAH Comment:Testing performed by : [address] [address] BUN 22 6 - 25 mg/dL HANNAH Comment:Testing performed by : [address] [address] Creatinine 1.50(H) 0.60 - 1.10 mg/dL HANNAH Comment:Testing performed by : [address] [address] Glucose 108 70 - 199 mg/dL [facility] Comment: Interpretive Data Fasting glucose >/= 126 [...] was last revised 2022. Testing performed by: [address] [address] Calcium 9.1 8.5 - 10.3 mg/dL HANNAH Comment:Testing performed by : [facility], [address] [place] [address]., [address] Blood 12/06/2024 5:07 AM CDT 12/06/2024 5:49 AM CDT Nika Chowdhury [employer] LAB BLOOD ORDERABLES Final Re sult Performing Organization Address [facility] [address]/[facility] Co de Phone Number HANNAH [address] [facility] [place] [address] * (ABNORMAL) eGFR (12/05/2024 4:58 AM CDT) [...] was last reviewed 2021. Testing performed by: [facility], [address] [place] [address]., [address] Blood 12/05/2024 4:58 AM CDT 12/05/2024 5:12 AM CDT Nika Chowdhury [employer]PECT[employer] LAB BLOOD ORDERABLES Final Re sult Performing Organization Address City/[facility] [address]/ZIP Co de Phone Number [place] [facility] [id number] [facility] [place] [address] * (ABNORMAL) Differential, auto (12/05/2024 4:58 AM CDT) Neutrophil abs 7.3(H) 1.5 - 6.5 K/cumm Comment:Testing performed by : [address] [address] Imm gran abs 0.2(H) 0.0 - 0.1 K/cumm HANNAH Comment:Testing performed by : [address] [address] Lymphocyte abs 1.3 0.8 - 3.3 K/cumm [facility] [place] [facility] Comment:Testing performed by : [address] [address] Monocyte abs 1.0(H) 0.2 - 0.8 K/cumm [facility] Comment:Testing performed by : [address] [address] Eosinophil abs 0.4 0.0 - 0.5 K/cumm [facility] Comment:Testing performed by : [address] [address] Basophil abs 0.0 0.0 - 0.1 K/cumm [facility] Comment:Testing performed by : [address] [address] Neutrophil pct 71.4 % [facility] Comment: Interpretive Data Percent cell count reference ranges are not reported, since discordance with absolute values may lead to misinterpretation of CBC data. Current Interpretive Data was last revised on 2017. Testing performed by: [address] [address] Imm gran pct 1.5 % [facility] [place] Comment: Interpretive Data Percent cell count reference ranges are not reported, since discordance with absolute values may lead to misinterpretation of CBC data. Current Interpretive Data was last revised on 2017. Testing performed by: [address] [address] Lymphocyte pct 12.9 % [facility] [place] Comment: Interpretive Data Percent cell count reference ranges are not reported, since discordance with absolute values may lead to misinterpretation of CBC data. Current Interpretive Data was last revised on 2017. Testing performed by: [address] [address] Monocyte pct 10.0 % HANNAH Comment: Interpretive Data Percent cell count reference ranges are not reported, since discordance with absolute values may lead to misinterpretation of CBC data. Current Interpretive Data was last revised on 2017. Testing performed by: [address] [address] Eosinophil pct 3.8 % HANNAH Comment: Interpretive Data Percent cell count reference ranges are not reported, since discordance with absolute values may lead to misinterpretation of CBC data. Current Interpretive Data was last revised on 2017. Testing performed by: [address] [address] Basophil pct 0.4 % HANNAH Comment: Interpretive Data Percent cell count reference ranges are not reported, since discordance with absolute values may lead to misinterpretation of CBC data. Current Interpretive Data was last revised on 2017. Testing performed by: [address] [address] Blood 12/05/2024 4:58 AM CDT 12/05/2024 5:12 AM CDT us Nika Chowdhury NP LAB BLOOD ORDERABLES Final Re sult [facility] [address] [facility] Department [place] [address] * (ABNORMAL) CBC with auto differential (12/05/2024 4:58 AM CDT) WBC 10.3(H) 3.8 - 9.9 K/cumm Comment:Testing performed by : [address] [address] Hgb 9.1(L) 11.9 - 15.5 g/dL HANNAH LEA Comment:Testing performed by : [address] [address] Hct 28.4(L) 35.6 - 45.5 % HANNAH Comment:Testing performed by : [address] [address]25 Plt 396 150 - 400 K/cumm HANNAH Comment:Testing performed by : [address] [address] MPV 9.1 9.1 - 12.3 fL HANNAH LEA Comment:Testing performed by : [address] [address] RBC 3.23(L) 3.90 - 5.20 M/cumm HANNAH Comment:Testing performed by : [address] [address] MCV 87.9 81.3 - 96.4 fL HANNAH Comment:Testing performed by : [address] [address] MCH 28.2 27.1 - 33.3 pg HANNAH Comment:Testing performed by : [address] [address] MCHC 32.0(L) 32.3 - 35.7 g/dL HANNAH Comment:Testing performed by : [address] [address] RDW CV 15.0(H) 11.1 - 14.9 % HANNAH Comment:Testing performed by : [address] [address] RDW SD 48.8(H) 35.7 - 48.1 fL HANNAH Comment:Testing performed by : [address] [address] NRBC abs 0.00 0.00 - 0.01 K/cumm HANNAH Comment:Testing performed by : [address] [address] Blood 12/05/2024 4:58 AM CDT 12/05/2024 5:12 AM CDT us Nika Chowdhury NP LAB BLOOD ORDERABLES Final Re sult HANNAH LEA [address] [facility] Department [place] [address] * (ABNORMAL) Basic metabolic panel (12/05/2024 4:58 AM CDT) Sodium 139 135 - 145 mmol/L Comment:Testing performed by : [address] [address] Potassium, pl 4.5 3.3 - 4.9 mmol/L HANNAH Comment:Testing performed by : [address] [address] Chloride 101 97 - 110 mmol/L HANNAH Comment:Testing performed by : [address] [address] CO2 28 22 - 32 mmol/L HANNAH Comment:Testing performed by : [address] [address] Anion gap 10 2 - 15 mmol/L HANNAH Comment:Testing performed by : [address] [address] BUN 22 6 - 25 mg/dL HANNAH Comment:Testing performed by : [address] [address] Creatinine 1.42(H) 0.60 - 1.10 mg/dL HANNAH Comment:Testing performed by : [address] [address] Glucose 109 70 - 199 mg/dL HANNAH [...] was last revised 2022. Testing performed by: [address] [address] Calcium 9.3 8.5 - 10.3 mg/dL HANNAH Comment:Testing performed by : [address] [address] Blood 12/05/2024 4:58 AM CDT 12/05/2024 5:12 AM CDT Nika Chowdhury NP LAB BLOOD ORDERABLES Final Re sult Performing Organization Address [facility] Co de Phone Number HANNAH [address] [employer] [place] [address] * (ABNORMAL) eGFR (12/04/2024 5:05 AM CDT) [...] was last reviewed 2021. Testing performed by: [facility], [address] [place] [address]., [address] Blood 12/04/2024 5:05 AM CDT 12/04/2024 5:29 AM CDT Nika Chowdhury LAB BLOOD ORDERABLES Final Re sult Performing Organization Address [facility] Co de Phone Number HANNAH [id number] [place] [address] * (ABNORMAL) Differential, auto (12/04/2024 5:05 AM CDT) Neutrophil abs 6.4 1.5 - 6.5 K/cumm Comment:Testing performed by : [address] [address] Imm gran abs 0.2(H) 0.0 - 0.1 K/cumm HANNAH Comment:Testing performed by : [address] [address] Lymphocyte abs 1.2 0.8 - 3.3 K/cumm [facility] [place] Comment:Testing performed by : [address] [address] Monocyte abs 1.0(H) 0.2 - 0.8 K/cumm [facility] Comment:Testing performed by : [address] [address] Eosinophil abs 0.3 0.0 - 0.5 K/cumm [facility] Comment:Testing performed by : [address] [address] Basophil abs 0.1 0.0 - 0.1 K/cumm [facility] Comment:Testing performed by : [address] [address] Neutrophil pct 70.2 % [facility] Comment: Interpretive Data Percent cell count reference ranges are not reported, since discordance with absolute values may lead to misinterpretation of CBC data. Current Interpretive Data was last revised on 2017. Testing performed by: [address] [address] Imm gran pct 1.7 % [facility] Comment: Interpretive Data Percent cell count reference ranges are not reported, since discordance with absolute values may lead to misinterpretation of CBC data. Current Interpretive Data was last revised on 2017. Testing performed by: [address] [address] Lymphocyte pct 12.8 % [facility] [place] Comment: Interpretive Data Percent cell count reference ranges are not reported, since discordance with absolute values may lead to misinterpretation of CBC data. Current Interpretive Data was last revised on 2017. Testing performed by: [address] [address] Monocyte pct 11.5 % HANNAH Comment: Interpretive Data Percent cell count reference ranges are not reported, since discordance with absolute values may lead to misinterpretation of CBC data. Current Interpretive Data was last revised on 2017. Testing performed by: [address] [address] Eosinophil pct 3.1 % HANNAH Comment: Interpretive Data Percent cell count reference ranges are not reported, since discordance with absolute values may lead to misinterpretation of CBC data. Current Interpretive Data was last revised on 2017. Testing performed by: [address] [address] Basophil pct 0.7 % HANNAH Comment: Interpretive Data Percent cell count reference ranges are not reported, since discordance with absolute values may lead to misinterpretation of CBC data. Current Interpretive Data was last revised on 2017. Testing performed by: [address] [address] Blood 12/04/2024 5:05 AM CDT 12/04/2024 5:29 AM CDT us Nika Chowdhury NP LAB BLOOD ORDERABLES Final Re sult HANNAH [address] [facility] Department [place] [address] * (ABNORMAL) CBC with auto differential (12/04/2024 5:05 AM CDT) WBC 9.1 3.8 - 9.9 K/cumm Comment:Testing performed by : [address] [address] Hgb 8.9(L) 11.9 - 15.5 g/dL HANNAH LEA Comment:Testing performed by : [address] [address] Hct 28.5(L) 35.6 - 45.5 % HANNAH Comment:Testing performed by : [address] [address] Plt 383 150 - 400 K/cumm HANNAH LEA Comment:Testing performed by : [address] [address] MPV 9.2 9.1 - 12.3 fL HANNAH LEA Comment:Testing performed by : [address] [address] RBC 3.20(L) 3.90 - 5.20 M/cumm HANNAH LEA Comment:Testing performed by : [address] [address]73 MCV 89.1 81.3 - 96.4 fL HANNAH Comment:Testing performed by : [address] [address] MCH 27.8 27.1 - 33.3 pg HANNAH Comment:Testing performed by : [address] [address] MCHC 31.2(L) 32.3 - 35.7 g/dL HANNAH Comment:Testing performed by : [address] [address] RDW CV 15.0(H) 11.1 - 14.9 % HANNAH Comment:Testing performed by : [address], [address] RDW SD 49.6(H) 35.7 - 48.1 fL HANNAH Comment:Testing performed by : [address] [address] NRBC abs 0.00 0.00 - 0.01 K/cumm HANNAH Comment:Testing performed by : [address] [address] Blood 12/04/2024 5:05 AM CDT 12/04/2024 5:29 AM CDT Nika Chowdhury NP LAB BLOOD ORDERABLES Final Re sult HANNAH [address] [facility] Department of Laboratories [place], [place] [id number] * (ABNORMAL) Basic metabolic panel (12/04/2024 5:05 AM CDT) Sodium 139 135 - 145 mmol/L Comment:Testing performed by : [address] [address] Potassium, pl 4.6 3.3 - 4.9 mmol/L HANNAH Comment:Testing performed by : [address], [place]., [address] Chloride 100 97 - 110 mmol/L HANNAH Comment:Testing performed by : [address], [place]., [address] CO2 28 22 - 32 mmol/L HANNAH Comment:Testing performed by : [address], [place]., [address] Anion gap 11 2 - 15 mmol/L HANNAH Comment:Testing performed by : [address], [place]., [address] BUN 26(H) 6 - 25 mg/dL [facility] [place] Comment:Testing performed by : [address], [place]., [address] Creatinine 1.30(H) 0.60 - 1.10 mg/dL [facility] [place] Comment:Testing performed by : [address] [address] Glucose 104 70 - 199 mg/dL [facility] Comment: Interpretive Data Fasting glucose >/= [...] was last revised 2022. Testing performed by: [address] [address] Calcium 9.0 8.5 - 10.3 mg/dL HANNAH Comment:Testing performed by : [address], [place]., [address] Blood 12/04/2024 5:05 AM CDT 12/04/2024 5:29 AM CDT Nika Chowdhury NP LAB BLOOD ORDERABLES Final Re sult [facility] [address] [facility] Department [place] [address] * US VEIN DUPLEX LOWER EXTREMITY LEFT LIMITED, UNILATERAL (12/03/2024 4:47 PM CDT) Anatomical Region Laterality Modality Vascular Left Ultrasound 12/03/2024 4:21 PM CDT Narrative 12/04/2024 8:56 AM CDT Lower Extremity Venous Report Patient Name: LUCILLE SEVILLA MAE : 1935 (89y 2m) Gender: F Study Date: 12/03/2024 04:21:28 PM Maintenance Groundman: Ariella Alonzo RDMS,Asmita Location: [id number] Order Provider: NIKA CHOWDHURY Quality: Adequate Ref [...] distal augmentation. Provider Notification: RUBY Chowdhury via AMX. CONCLUSIONS: 1. There is no evidence of [...] Gender: F Study Date: 12/03/2024 04:21:28 PM Maintenance Groundman: Ariella Alonzo RDMS,T Location:[id number] Order Provider: NIKA CHOWDHURY Quality: Adequate Ref [...] ur Yellow Yellow Comment:Testing performed by : [address] [address] Clarity, ur Clear Clear HANNAH Comment:Testing performed by : [address] [address] Specific gravity, ur 1.009 1.003 - 1.030 HANNAH Comment:Testing performed by : [address] [address] pH, urine 6.5 HANNAH Comment: Interpretive Data U rine pH is affected by diet, medications, systemic acid-base disturbances, and renal tubular function. pH may affect urinary stone formation. For example, urine pH below 6.0 may help reduce the tendency for calcium phosphate stones and pH greater than 6.0 may reduce the tendency for uric acid stone formation. Source: [employer] Current Interpretive Data was last revised on 2017 Testing performed by: [address] [address] Protein, ur ql Negative Negative HANNAH Comment:Testing performed by : [address] [address] Glucose, ur ql Negative Negative HANNAH LEA Comment:Testing performed by : [address], [place]., [address] Ketones, ur Negative Negative HANNAH LEA Comment:Testing performed by : [address], [place]., [address] Bilirubin, ur Negative Negative HANNAH Comment:Testing performed by : [address], [place]., [address] Blood, ur Negative Negative HANNAH Comment:Testing performed by : [address], [place]., [address] Urobilinogen, ur <2.0 <2.0 mg/dL HANNAH Comment:Testing performed by : [address], [place]., [address] Nitrite, ur Negative Negative HANNAH Comment:Testing performed by : [address], [place]., [address] Leukocyte esterase, ur 3+(A) Negative HANNAH Comment:Testing performed by : [address], [place]., [address] UA reflex comment Reflex to microscopic UA will be performed. HANNAH Comment:Testing performed by : [address], [place]., [address] Urine 12/03/2024 12:5 7 PM CDT 12/03/2024 1:01 PM CDT Narrative HANNAH - 12/03/2024 1:04 PM CDT If patient unable to urinate, straight cath Jaimie Romero MD LAB MICROBIOLOGY - GENERAL ORDERABLES Final Result HANNAH [address] [facility] Department [place] [address] * (ABNORMAL) Urinalysis, microscopic only (12/03/2024 12:57 PM CDT) WBC, ur 11-20(A) 0 - 5 /HPF Comment:Testing performed by : [address], [place]., [address] RBC, ur 0-2 0 - 2 /HPF HANNAH LEA Comment:Testing performed by : [facility], [address] [place] [address]., [address] Culture Reflex Comment Reflex to urine culture will be performed. HANNAH Comment:Testing performed by : [facility], [address] [place] [address]., [address] Urine 12/03/2024 12:5 7 PM CDT 12/03/2024 1:01 PM CDT Jaimie Romero MD LAB URINE ORDERABLES Final Result Performing Organization Address [facility] de Phone Number [address] [place] [address] * Urine culture Urine (12/03/2024 12:57 PM CDT) Report Final Report: Less than 100,000 colonies/mL (clinically insignificant growth based on current clinical standards) Comment:Testing performed by : [facility], [address] [place] [address], [place]., [id number] Organism (CLINICALLY INSIGNIFICANT GROWTH HANNAH Urine 12/03/2024 12:5 7 PM CDT 12/03/2024 4:29 PM CDT Narrative HANNAH - 12/04/2024 5:30 PM CDT Urine culture reflexed based upon urinalysis results. Testing performed by [facility] Microbiology [facility] ([phone]) Jaimie Romero MD LAB MICROBIOLOGY - GENERAL ORDERABLES Final Result Performing Organization Address [facility] [address]/[facility] Co de Phone Number [address] [employer] [place] [address] * Blood culture Blood Peripheral (12/03/2024 11:27 AM CDT) Report Final Report: No growth Comment:Testing performed by : [facility], [address] [place] [address]., [id number] Blood (Peripheral) 12/03/2024 11:27 AM CDT 12/03/2024 [...] performance characteristics have been verified by the [facility]. For questions about this culture, contact the Microbiology Laboratory at [phone]. Interpretive data was last revised on 24. Jaimie Romero MD LAB MICROBIOLOGY - GENERAL ORDERABLES Final Result HANNAH [address] [facility] [place] [address] * Blood culture Blood Peripheral (12/03/2024 11:27 AM CDT) Report Final Report: No growth Comment:Testing performed by : [facility], [address] [facility], [place]., [address] Blood (Peripheral) 12/03/2024 11:27 AM CDT 12/03/2024 [...] performance characteristics have been verified by the [facility]. For questions about this culture, contact the Microbiology Laboratory at [phone]. Interpretive data was last revised on 24. Jaimie Romero MD LAB MICROBIOLOGY - GENERAL ORDERABLES Final Result Performing Organization Address City/[facility] [address]/ZIP Co de Phone Number [facility]NA[id number] [place] [address] * Sepsis Lactate w/ Reflex (12/03/2024 10:16 AM CDT) [facility] Sepsis Lactate 1.7 0.7 - 2.0 mmol/L Comment:Testing performed by : [facility], [address] [place] [address]., [address] Blood 12/03/2024 10:1 6 AM CDT 12/03/2024 10:21 AM CDT Jaimie Romero MD LAB BLOOD ORDERABLES Final Result [facility]NA[id number] [place] [address] * (ABNORMAL) eGFR (12/03/2024 10:16 AM CDT) [facility] eGFR 39(L) >=60 mL/min/1. 73 m2 Comment: [...] was last reviewed 2021. Testing performed by: [address] [address] Blood 12/03/2024 10:1 6 AM CDT 12/03/2024 10:21 AM CDT Jaimie Romero MD LAB BLOOD ORDERABLES Final Result HANNAH [address] [facility] Department [place] [address] * (ABNORMAL) Differential, auto (12/03/2024 10:16 AM CDT) Neutrophil abs 8.1(H) 1.5 - 6.5 K/cumm Comment:Testing performed by : [address] [address] Imm gran abs 0.2(H) 0.0 - 0.1 K/cumm [facility]ANNAH LEA Comment:Testing performed by : [address] [address] Lymphocyte abs 1.0 0.8 - 3.3 K/cumm HANNAH LEA Comment:Testing performed by : [address] [address] Monocyte abs 1.0(H) 0.2 - 0.8 K/cumm [facility] Comment:Testing performed by : [address] [address] Eosinophil abs 0.3 0.0 - 0.5 K/cumm [facility] Comment:Testing performed by : [address] [address] Basophil abs 0.1 0.0 - 0.1 K/cumm [facility] Comment:Testing performed by : [address] [address] Neutrophil pct 76.0 % [facility] Comment: Interpretive Data Percent cell count reference ranges are not reported, since discordance with absolute values may lead to misinterpretation of CBC data. Current Interpretive Data was last revised on 2017. Testing performed by: [address] [address] Imm gran pct 1.4 % [facility] Comment: Interpretive Data Percent cell count reference ranges are not reported, since discordance with absolute values may lead to misinterpretation of CBC data. Current Interpretive Data was last revised on 2017. Testing performed by: [address] [address] Lymphocyte pct 9.5 % [facility] Comment: Interpretive Data Percent cell count reference ranges are not reported, since discordance with absolute values may lead to misinterpretation of CBC data. Current Interpretive Data was last revised on 2017. Testing performed by: [address] [address] Monocyte pct 9.4 % [facility] Comment: Interpretive Data Percent cell count reference ranges are not reported, since discordance with absolute values may lead to misinterpretation of CBC data. Current Interpretive Data was last revised on 2017. Testing performed by: [address] [address] Eosinophil pct 3.1 % [facility] Comment: Interpretive Data Percent cell count reference ranges are not reported, since discordance with absolute values may lead to misinterpretation of CBC data. Current Interpretive Data was last revised on 2017. Testing performed by: [address] [address] Basophil pct 0.6 % HANNAH Comment: Interpretive Data Percent cell count reference ranges are not reported, since discordance with absolute values may lead to misinterpretation of CBC data. Current Interpretive Data was last revised on 2017. Testing performed by: [address] [address] Blood 12/03/2024 10:1 6 AM CDT 12/03/2024 10:21 AM CDT Jaimie Romero MD LAB BLOOD ORDERABLES Final Result [facility] [address] [facility] Department [place] [address] * (ABNORMAL) CBC with auto differential (12/03/2024 10:16 AM CDT) WBC 10.6(H) 3.8 - 9.9 K/cumm Comment:Testing performed by : [address] [address] Hgb 9.9(L) 11.9 - 15.5 g/dL HANNAH Comment:Testing performed by : [address] [address] Hct 31.3(L) 35.6 - 45.5 % HANNAH Comment:Testing performed by : [address] [address] Plt 384 150 - 400 K/cumm HANNAH Comment:Testing performed by : [address] [address] MPV 9.0(L) 9.1 - 12.3 fL HANNAH Comment:Testing performed by : [address] [address] RBC 3.51(L) 3.90 - 5.20 M/cumm HANNAH Comment:Testing performed by : [address] [address] MCV 89.2 81.3 - 96.4 fL HANNAH Comment:Testing performed by : [address] [address] MCH 28.2 27.1 - 33.3 pg HANNAH LEA Comment:Testing performed by : [address] [address] MCHC 31.6(L) 32.3 - 35.7 g/dL HANNAH LEA Comment:Testing performed by : [address], [address] RDW CV 15.2(H) 11.1 - 14.9 % HANNAH LEA Comment:Testing performed by : [address], [address] RDW SD 49.8(H) 35.7 - 48.1 fL HANNAH LEA Comment:Testing performed by : [address], [address] NRBC abs 0.00 0.00 - 0.01 K/cumm HANNAH Comment:Testing performed by : [address], [address] Blood 12/03/2024 10:1 6 AM CDT 12/03/2024 10:21 AM CDT us Jaimie Romero MD LAB BLOOD ORDERABLES Final Result Performing Organization Address City/[facility] [address]/[facility] Co de Phone Number [address] [place] [address] * Erythrocyte sedimentation rate (12/03/2024 10:16 AM CDT) Pathologist [facility] Erythrocyte sedimentation rate 28 1 - 30 mm/hr Comment:Testing performed by : [address], [address] Blood 12/03/2024 10:1 6 AM CDT 12/03/2024 10:21 AM CDT us Nika Chowdhury NP LAB BLOOD ORDERABLES Final Re sult Performing Organization Address City/[facility] [address]/[facility] Co de Phone Number [address] [place] [address] * (ABNORMAL) CRP (acute phase) (12/03/2024 10:16 AM CDT) Pathologist [facility] CRP 14.5(H) <=10.0 mg/L Comment:Testing performed by : [address] [address] Blood 12/03/2024 10:1 6 AM CDT 12/03/2024 10:21 AM CDT Nika Chowdhury NP LAB BLOOD ORDERABLES Final Re sult [place] [id number] [facility] Department [place] [address] * (ABNORMAL) Comprehensive metabolic panel (12/03/2024 10:16 AM CDT) Pathologist [facility] Sodium 137 135 - 145 mmol/L Comment:Testing performed by : [address] [address] Potassium, pl 4.7 3.3 - 4.9 mmol/L HANNAH Comment:Testing performed by : [address] [address] Chloride 102 97 - 110 mmol/L HANNAH Comment:Testing performed by : [address] [address] CO2 24 22 - 32 mmol/L HANNAH Comment:Testing performed by : [address] [address] Anion gap 11 2 - 15 mmol/L HANNAH Comment:Testing performed by : [address] [address] BUN 25 6 - 25 mg/dL HANNAH Comment:Testing performed by : [address] [address] Creatinine 1.30(H) 0.60 - 1.10 mg/dL HANNAH Comment:Testing performed by : [address] [address] Glucose 158 70 - 199 mg/dL HANNAH [...] was last revised 2022. Testing performed by: [address] [address] Calcium 9.1 8.5 - 10.3 mg/dL HANNAH Comment:Testing performed by : [address] [address] Bilirubin, total 0.2 0.1 - 1.2 mg/dL HANNAH Comment:Testing performed by : [address] [address] Protein, pl 6.7 6.5 - 8.5 g/dL HANNAH Comment:Testing performed by : [address] [address] Albumin 3.4(L) 3.5 - 5.0 g/dL HANNAH Comment:Testing performed by : [address] [address] Alk phos 120 40 - 130 Units/L HANNAH Comment:Testing performed by : [address] [address] ALT 13 7 - 45 Units/L HANNAH Comment:Testing performed by : [address] [address] AST 14 10 - 45 Units/L [facility]ANNAH Comment:Testing performed by : [address] [address] Blood 12/03/2024 10:1 6 AM CDT 12/03/2024 10:21 AM CDT Jaimie Romero MD LAB BLOOD ORDERABLES Final Result [facility]ANNA[facility] [address] [place] [address] [place] [address] from Last 3 Months Insurance MEDICARE [facility] MEDICARE [facility] FED[employer]AL Advance Directives For more information, please contact: [phone] Documents on File Type Date Recorded Patient Almond Huller Expl anation ADVANCE DIRECTIVE 12/13/2024 11:42 AM Jono Terrazas ADVANCE DIRECTIVE 12/13/2024 11:42 AM Power of Air/Ocean Export Clerk-Medical ADVANCE DIRECTIVE 07/26/2024 8:59 AM POLS T [...] vasopressorsNo internal / external pacemaker Care Teams Dip Lube Operator Relationship Specialty Start Date End Date Irving Montes MD PCP - General Family Medicine 04/27/18
--- OUTSIDE RECORDS SUMMARY | 2025-02-12 11:34 | XMS_ITS | Continuity of Care Document ---
Author Organization [facility] Address [address] [place] [address] Phone Care Team Providers Care Lead Pastor Name Role Phone Rick Lamb MD Unavailable Unavailable Results Test Name Date and Time Measure Units Reference Range Abnormal Flag Status Comments Panel Description: [facility] Results Facility 533 Unknown H. Pylori 00:00:00 Negative Unknown Advance Directives Directive Yes / No Effective Date File Name No Information Encounters Encounter Description Practice Location Reason(s) For Visit Diagnoses Date Provider Providers Copied on Encounter [facility], [address], [place], [place], [id number] , tel: [phone] Conversion Department PEPTIC ULCER NOSSENILE OSTEOPOROSISGENERAL OSTEOARTHROSISMYALG [place] AND MYOSITIS NOS 4-[address] Zain[address] Cabrera. [address] , [address], [place], [place], [id number] . tel: [phone] Family History Family Member Type Diagnosis Age [...]
--- OUTSIDE RECORDS SUMMARY | 2025-02-12 11:34 | XMS_ITS | Data Portability ---
Author Organization [place] [facility], Main Office Address [address] [place] [address] Care Team Providers Care Education Site Manager Name Role Phone JORGE L APODACA Primary Care Provider JORGE L APODACA Referring Provider [phone] Assessment Encounter Date Assessment Date Assessment LastModified by Organization Details LastModified Time 12/05/2022 12/05/2022 Patient has yakr-hd-ibem arthritis both knees she really would need [...] she is going to check with her maintenance of way clerk to see if she can take the prednisone pills. I will see her back every 3 or 4 months for injections if she requires discussed. Her medical problems and complications occur include kidney failure morbid obesity and some cardiac issues. roshan Not available 12/05/2022 14:14:17 02/06/2023 02/06/2023 Patient returns knee pain bilaterally. She has rmwo-ks-nbyg arthritis of her knees. She is not [...] DO Not Attach Compendium, Do Not Delete/merge, [id number] 13:15:49 injection/a spiration joint/bursa (PROC) - in office procedure, administere d by provider 2022 023 [email or web address] In-Office Order, Internal Use Only DO Not Attach Compendium DO Not Attach Compendium, Do Not Delete/merge, 13:52:27 Surgeries None recorded. Imaging XR, knee 2022 023 gricel [address] [facility] [place], [address] [facility] [address], [place], [address], 3 14:38:34 Medication Orders Kenalog 10 mg/mL suspension for injection [address] [place] [address], [address] [place] [address], [address], 3 13:17:04 ropivacaine (PF) 5 mg/mL (0.5 %) injection solution [email or web address], [address] [place] [address], [address], 3 13:17:04 Kenalog 10 mg/mL suspension for injection [email or web address], [address] [place] [address], [address], 3 14:03:48 ropivacaine (PF) 5 mg/mL (0.5 %) injection solution 2022 023 [email or web address] Not available 14:51:16 prednisone 10 mg tablets in a dose pack 2022 David monsavle [address] [facility], [address] [facility], [place], [address], 14:03:48 Patient TargetsNo targets recorded. Patient InstructionsNo instructions recorded. Reason for Referral None Reported. Results Created Date Observation Date Name Description Value Unit Range Abnormal Flag Note LastModifiedBy Organization Detail LastModifiedTime 03/07/20 22 XR, hip + pelvi s, unila teral , 2 or 3 view No observ ation record ed. [id number] [facility] [place] [address], [place], [address], 11/06/2022 13:32:51 06/27/20 22 XR, knee, 3 view No observ ation record ed. [id number] [facility] [place] [address], [place], [address], 11/06/2022 13:32:51 12/06/19 23 XR, knee No observ ation record ed. [email or web address] [facility] [place] [address], [place], [address], 12/05/2022 14:38:33 Result Notes None recorded. 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 3 13:30:19 Spinal stenosis of lumbar region 92862364 Active Not Available [facility] 3 13:30:20 Lesion of radial nerve 967027333 Active Not Available [facility] 3 13:30:20 Knee joint effusion 317698042 Active Not Available [facility] 3 13:30:20 Lumbar sprain 677562417 Active Not Available [facility] 3 13:30:20 Fall on same level from slipping, tripping or stumbling Active Not Available [facility] 3 13:30:20 Morbid obesity 125399053 Active 2020 Not Available [facility] 3 13:30:20 Osteoarthr itis of knee 422634939 Active Not Available [facility] 3 13:30:20 Fibromyosi tis 47933927 Active Not Available [facility] 3 13:30:20 Low back pain 538500420 Active Not Available [facility] 3 13:30:20 Recurrent dislocatio n of shoulder region 64504104 Active Not Available [facility] 3 13:30:20 Enthesopat hy of hip region 58289699 Active Not Available [facility] 3 13:30:20 Knee pain Active Not Available [facility] 3 13:30:20 Pain of left hip joint 5661533748326 00 Active 2021 Not Available [facility] 3 13:30:20 Trochanter ic bursitis of left hip 1351199881720 03 Active 2020 Not Available [facility] 3 13:30:21 Trochanter ic bursitis of right hip 0208149352512 00 Active 2019 Not Available [facility] 3 13:30:21 Osteoarthr itis of left knee joint 4551394948395 09 Active 2020 Not Available [facility] 3 13:30:21 Osteoarthr itis of right knee joint 5697689103673 00 Active 2020 Not Available [facility] 3 13:30:21 Enthesopat hy of knee 85142307 Active Not Available [facility] 3 13:30:21 Osteoarthr itis 287225595 Active Not Available [facility] 3 13:30:21 Closed fracture of trochanter of femur 225710433 Active Not Available [facility] 3 13:30:21 History of total replacemen t of right hip joint 4121189891027 00 Active 2021 Not Available [facility] 3 13:30:21 Pain of bilateral knee joints 7024104357044 04 Active 2021 Not Available [facility] 3 13:30:22 Lumbosacra l spondylosi s without myelopathy 51114206 Active Not Available [facility] 3 13:30:22 Disorder of bursa of shoulder region 52547317 Active Not Available [facility] 3 13:30:22 Fracture of neck of femur 7291995 Active Not Available [facility] 3 13:30:22 Disorder of coccyx 50489860 Active Not Available [facility] 3 13:30:22 Osteoarthr itis of shoulder region 34281114 Active Not Available [facility] 3 13:30:22 Degenerati on of interverte bral disc 48925571 Active Not Available [facility] 3 13:30:22 Pain in limb 07727396 Active Not Available [facility] 3 13:30:22 Problem Notes None recorded. Procedures Surgical History Date Name Laterality Status Provider Name and Address Organization Details Recorded Time 02/07/20 23 Ortho - Cortisone Injection completed Babar Guadarrama MD [address] [place] [address], [address] [address], [place], [address], [facility] [employer] [facility] 02/06/2023 13:34:44 12/06/19 23 Ortho - Cortisone Injection completed Babar Guadarrama MD [address] [facility], [place], [address], [facility] [employer] 12/05/2022 14:11:16 total replacement of hip completed Not Available [facility] 11/06/2022 13:29:40 Imaging Results None recorded. Procedure Notes None recorded. Medical Equipment None Reported. Allergies Allergen ID Allergen Name Allergen Category Reaction Reaction Severity Criticality Documentation Date Start Date Code Code System Note Provider Name and Address Organization Details Recorded Time 33732 Product containin g penicilli n (product) medicatio n Not available Not available Not available 11/06/2022 47402 8001 SNOMED Not Available [facility] 3 13:32:48 98333 codeine medicatio n Not available Not available Not available 11/06/2022 2670 RxNorm Not Available [facility] 3 13:32:48 Medications Name Sig Start Date [...] mg by injection route. 2022 active [facility]: 0003- 0494- 20 Not Available Not Available [...] red by the provider 12/20 completed [facility]: 0409- 4276- 17 Not Available Not Available [...] mg by injection route. 2022 active [facility] 79320 -064- 01 Not Available Not Available Not [...] Updated DateTime 10/03/2022 38.7 kg/m2 167.64 cm 803976.17 g Not Available [facility] 11/06/2022 13:29:46 Date Recorded Body height Body mass index (BMI) Body weight Provider Name and Address Organization Details Last Updated DateTime 12/05/2022 167.64 cm 37.8 kg/m2 148088.61 g Maryellen Thibodeaux [facility] 12/05/2022 13:33:03 Date Recorded Body height Body mass index (BMI) Body weight Provider Name and Address Organization Details Last Updated DateTime 02/06/2023 167.64 cm 37.8 kg/m2 716053.61 g Maryellen Thibodeaux [facility] 02/06/2023 13:10:53 Date Recorded Body mass index (BMI) Body height Body weight Provider Name and Address Organization Details Last Updated DateTime 03/07/2022 37.8 kg/m2 167.64 cm 910260.61 g Not Available [facility] 11/06/2022 13:29:46 Date Recorded Body mass index (BMI) Body height Body weight Provider Name and Address Organization Details Last Updated DateTime 06/27/2022 37.8 kg/m2 167.64 cm 765295.61 g Not Available [facility] 11/06/2022 13:29:46 Social History Question Answer Notes LastModified by Organizat ion Details LastModified Time Tobacco Smoking Status Former Smoker 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 16+yearssin celastcigar ette 30 Years Ago [email or web address] Information not available 02/06/2023 Sex: Unknown Functional Status Question Answer Note LastModified by Organizat ion Details LastModified Time What is your level of alcohol consumption? Occasional [id number] Information not available 11/06/2022 Mental Status None recorded. Family History Relationship Description Onset Age of this Age Resolved Age Notes LastModified by Organization Details LastModified Time Maternal Grandmother Heart disease [id number] Not available 11/06/2022 13:29:40 Father Family history of malignant neoplasm [id number] [id number] Not available 11/06/2022 13:29:40 Father History of hypertension [id number] [id number] Not available 11/06/2022 13:29:40 Mother History of hypertension [id number].293 [id number] Not available 11/06/2022 13:29:40 Medical History Condition [...] SNOMED-CT Code Diagnosis ICD10 Code Diagnosis Note [id number] NAKUL Timmons [facility] [place] [address] [place] [address] 12/05/2020 00:00:00 12/05/2020 15:05:50 [id number] Babar Guadarrama MD [facility] [place] [address] [place] [address] 07/05/2021 00:00:00 07/05/2021 13:31:46 [id number] Babar Guadarrama MD [facility] [place] [address] [place] [address] 12/20/2021 00:00:00 12/20/2021 11:36:36 [id number] Babar Guadarrama MD [facility] [place] [address] [place] [address] 03/07/2022 00:00:00 03/07/2022 11:57:50 [id number] Babar Guadarrama MD [facility] [place] [address] [place] [address] 06/27/2022 00:00:00 06/27/2022 11:31:16 [id number] Babar Guadarrama MD [facility] [place] [address] [place] [address] 10/03/2022 00:00:00 10/03/2022 11:09:21 [id number] Babar Guadarrama MD [facility] [place] [address] [place] [address] 12/05/2022 13:25:51 12/05/2022 14:28:54 Bilateral osteoarthritis of knees 9225501747 18864 M17.0 Low back pain 007682530 M54.50 Trochanter ic bursitis of left hip 8960759386 45321 M70.62 Trochanter ic bursitis of right hip 7156489601 76709 M70.61 Pain of le ft hip joint 6901679912 55311 M25.552 [id number] Babar Guadarrama MD [facility] [place] [address] [place] [address] 02/06/2023 12:52:16 02/06/2023 14:05:35 Bilateral osteoarthritis of knees 3356872224 19656 M17.0 Low back pain 578591978 M54.50 Trochanter ic bursitis of left hip 8130500880 19870 M70.62 Trochanter ic bursitis of right hip 9437612333 57954 M70.61 Pain of le ft hip joint 7053374462 78489 M25.552 Health Concerns Section Related Observation LastModified by Organization Detai ls LastModified Time None Recorded Concern Status LastModified by Organization Details LastModified Time None Recorded Advance Directives Directive None Recorded Payers Encounter Date Sequence Insurance Name Policy Number Policy Phelan Covered Member ID Phelan Member ID Guarantor Name 12/05/2022 1 [place] Lucille Vasques [id number] Lucille Vasques 12/05/2022 2 [place] 104 Lucille Vasques [id number] Lucille Vasques 02/06/2023 1 [place] Lucille Vasques [id number] Lucille Vasques 02/06/2023 2 [place] 104 Lucille Vasques [id number] Lucille Vasques Notes Date Note Type Note [...] change in bowel/bladder habits;weakness;s welling Not Available [facility] 03/07/2022 11:57:50 12/05/2022 text/html Patient returns status post arthritis both knees she has jsju-me-imtt arthritis however she has kidney failure at this time and is not a surgical candidate. I told her there is really not much else I can do other than occasional cortisone shots. Babar Guadarrama MD [address] [place] [address], [address] [address], [place], [address], [facility] 12/05/2022 14:38:39 02/06/2023 text/html Patient returns status post arthritis both knees she has ddnd-wz-tjes arthritis however she has kidney failure at this time and is not a surgical candidate. I told her there is really not much else I can do other than occasional cortisone shots. Babar Guadarrama MD [address] [place] [address], [facility] [address], [place], [address], [place] [facility] [place] [employer] [facility] 02/06/2023 13:36:19 OBGyn Episode No OBEpisode recorded.
--- OUTSIDE RECORDS SUMMARY | 2025-02-12 11:35 | XMS_ITS | Continuity of Care Document ---
Author Organization [facility] Address [address] [place] [address] [place] [address] Phone Care Team Providers Care Boat Driver Name Role Phone [facility] Unavailable Unavail able Tyron, Margarita Unavailable Unavailable Procedures Procedure Date Frames Deluxe Miscellaneous Vision Service - Supplies [employer] - Medical BF Polycarb Sphcyl [place] To +/-4d .12-2d Tint Photochromatic, Polycarb 8 [facility] - Medical Eye Exam & Treatment Advance Directives Directive Yes / No Effective Date File Name No Information Encounters Encounter Description Practice Location Reason(s) For Visit Diagnoses Date Provider Providers Copied on Encounter [facility], [address] [place] [address], [place], [place], [id number], tel:[phone] [facility] No Information 9 [facility] . [address] [place] [address], [id number], [place]. tel:[phone] Consulting Provider: Margarita Ackerman, [address] [place], [address]. tel:[phone] [facility], [address] [place] [address], [place], [place], [id number], tel:[phone] [facility] No Information 8 [facility] . [address] [place] [address], [id number], [place]. tel:[phone] Consulting Provider: Patti Jensen, [address] [facility], [place], [address]. tel:[phone] [facility], [address], [place], [place], [id number], [place] tel:[phone] [facility] No Information [address] Philomena Kim. [address] [facility], [address], [place], [place], [id number], [place]. tel:[phone] Family History Family Member Type Diagnosis Age [...]
--- OUTSIDE RECORDS SUMMARY | 2025-02-12 11:35 | XMS_ITS | Encounter Summary ---
Author Organization [facility] Address 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
--- OUTSIDE RECORDS SUMMARY | 2025-02-12 11:35 | XMS_ITS | Clinical Summary ---
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
--- OUTSIDE RECORDS SUMMARY | 2025-02-12 11:35 | XMS_ITS | Encounter Summary ---
Author Organization [facility] Address [address] [place] [address] Care Team Providers Care Dial Screw Assembler Name Role Phone Teddy Vance MD Primary Care Provider [phone] Encounter Details Date Type Department Care Team (Latest Contact Info) Description 07/05/2008 Outpatient Historical HIS [facility] ALISE Aquino Jr., Stevenson Miller MD NO ADDRESS ON FILE Other Screening Mammogram Social History Tobacco Use Types Packs/Day Years Used Date Smoking Tobacco: Never Assessed Comments Unknown Sex and Gender Information Value Date Recorded Sex Assigned at Not on file Legal Sex Female 4:27 AM MANAGER ECONOMIC Gender Identity Not on file Sexual Orientation [...] PM CDT Narrative 07/05/2008 8:31 PM CDT [facility] [place], [place] [address], [place] [address] Admit Date: 07/05/2008 ERVIN SEVILLA Sex: F Admit Prov: STEVENSON AQUINO Date: 1935 Primary Care Prov: CMRN: [id number] Room: VIPIN SSN: [id number] IMAGING SERVICES Ordering Prov: STEVENSON AQUINO Accession Number: [id number] Interpretation BILATERAL FULL FIELD DIGITAL SCREENING MAMMOGRAM [...] AMK Procedure Note Dolly Cortes - 07/05/2008 [facility] [place], [place] [address] [place], [place] [address] Admit Date: 07/05/2008 ERVIN SEVILLA Sex: F Admit Prov: STEVENSON AQUINO Date: 1935 Primary Care Prov: CMRN: [id number] [facility] [address] [place] [address] IMAGING SERVICES Ordering Prov: STEVENSON AQUINO Interpretation [...] mammogram documented in this encounter Care Teams Dial Screw Assembler Relationship Specialty Start Date End Date Teddy Vance MD [address] [facility] [address] [place] [address] PCP - General 09/04/09 documented as of this encounter
--- OUTSIDE RECORDS SUMMARY | 2025-02-12 11:35 | XMS_ITS | Clinical Summary ---
Author Organization [facility] Address [address] [place] [address] Care Team Providers Care Traffic Inspector Name Role Phone Unavailable Primary Care Provider Unavailabl e Source Comments [facility],non-owned Affiliates and Associated Physician Practices is amultiple site organization consisting of ambulatory clinics and hospital sitesin [place], [place] and [place]. This disclosure is being madepursuant to the Care Everywhere program and may not contain all information available regarding this patient. 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
--- OUTSIDE RECORDS SUMMARY | 2025-02-12 11:35 | XMS_ITS | Encounter Summary ---
Author Organization [facility] Address [address] [place] [address] Care Team Providers Care Health Information Clerk Name Role Phone Unavailable Primary Care Provider Unavailabl e Encounter Details Date Type Department Care Team (Late st Contact Info) Description 07/24/2023 Lab Requisition [facility] - DermPath Lab [address] [place] [id number] Jamil Salas MD [address] [place] [address] Social History Tobacco Use Types Packs/Day Years Used Date Smoking Tobacco: Never Assessed Comments Unknown Sex and Gender Information Value Date Recorded Sex Assigned at Not on file Legal Sex Female 7:04 AM ELECTRICAL PROJECT MANAGER Gender Identity Not on file Sexual Orientation Not on file documented as of this encounter Plan of Treatment Not on file documented as of this encounter Procedures Procedure Name Priority Date/Time Associated Diagnosis Comments DERMATOPATHOLOGY Routine 07/22/2023 12:0 0 AM ELECTRICAL PROJECT MANAGER documented in this encounter Results * DERMATOPATHOLOGY (07/22/2023 12:00 AM ELECTRICAL PROJECT MANAGER) Case Report Dermatopathology Report Case: [id number] Authorizing Provider: Jamil Salas MD Collected: 07/22/2023 12:00 AM Ordering Location: [facility] DermPath Lab Received: 07/24/2023 09:19 AM Pathologist: Charlene Yang MD Specimen: Skin, nasal tip 3 3:16 PM ELECTRICAL PROJECT MANAGER DERMATOPATHOLOGY LABORATORY Final Diagnosis Specimen A. SKIN, nasal tip: BASAL CELL CARCINOMA, NODULAR TYPE (C44.311) 3 3:16 PM ELECTRICAL PROJECT MANAGER DERMATOPATHOLOGY LABORATORY at 1516 ELECTRICAL PROJECT MANAGER Clinical History R/O BCC 3:16 PM [facility] DERMATOPATHOLOGY LABORATORY Gross Description Specimen A: Received is one formalin filled container labeled with the patient's name and designated nasal tip. The specimen consists of a (3) pieces shave biopsy measuring 1x4x1, 6x5x1, 3x3x1 mm. Jar 0. 3:16 PM [facility] DERMATOPATHOLOGY LABORATORY Microscopic Description Specimen A. SKIN, nasal tip: Within the dermis there are aggregates of basaloid cells with a high nuclear to cytoplasmic ratio and peripheral palisading. 3 3:16 PM [facility] DERMATOPATHOLOGY LABORATORY Disclaimer An external and internal positive and negative controls are appropriate for the histochemical, immunohistochemical and immunofluorescence stain(s) in this case (if any), except where stated explicitly. The performance characteristics of the stain(s) cited in this report were developed and its performance characteristic determined by the Dermatopathology Laboratory at [facility], directed by Dr. Anil Willett. These tests need not be, and therefore are not, approved by the [place] Food and Drug Administration. The tests are used for clinical purposes. Billing Codes Specimen Charges Stain Charges 71832 1 3 3:16 PM ELECTRICAL PROJECT MANAGER DERMATOPATHOLOGY LABORATORY Embedded Images 3 3:16 PM [facility] DERMATOPATHOLOGY LABORATORY Pathology/Cytolog y TISSUE SPECIMEN FROM SKIN / Unknown 07/22/2023 07/24/2023 9:19 AM ELECTRICAL PROJECT MANAGER Jamil Salas MD LAB - PATHOLOGY/CYTOLOGY ORDERAB LES Final Result DERMATOPATHOLOGY LABORATORY [facility] - Department of Dermatology [address] [phone] documented in this encounter Visit Diagnoses Not on filedocumented in this encounter
--- OUTSIDE RECORDS SUMMARY | 2025-02-12 11:35 | XMS_ITS | Clinical Summary ---
Author Organization [facility] [place] [address] Address [address] [place] [address] Care Team Providers Care Bulldozer Operator Name Role Phone Irving Montes MD Primary Care Provider [phone] Allergies Active Allergy Reactions Criticality Noted Date [...] 1 tablet (75 mcg total) by mouth precinct i police sergeant before breakfast 11/21/19 21 Active ondansetron (ZOFRAN) [...] 07/13/2020 Assessment & Plan (11/09/2020 6:57 PM FRYER OPERATOR): Impression: Chronic kidney disease which is followed by outside institution nuclear monitoring technician. Patient wishes to have 2nd opinion and to combine care at our hospital. Plan: Referral to [facility] [place] for further evaluation of her chronic kidney disease. Chronic eczematous otitis externa of both ears 0 03/30/2020 Other otitis externa, unspecified ear 03/30/2020 Hypertension 02/19/2019 Overview (02/19/2019): Hypertension Assessment & Plan (11/09/2020 6:55 PM FRYER OPERATOR): Impression: Stable chronic hypertension. Plan: Medications reviewed and recommend continuing daily antihypertensive regimen as directed by patient's primary care physician. Assessment & Plan (02/19/2019 1:16 PM CDT): Stable hypertension control with use of medications. Plan: Continue management as per primary care provider. 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 08/24/2018 Pain in both lower extremities 08/18/2018 Stenosis of carotid artery 07/22/2016 Overview (12/13/2016): Carotid stenosis, asymptomatic, right Assessment & Plan (11/09/2020 6:59 PM FRYER OPERATOR): Impression: Stable asymptomatic bilateral internal carotid [...] Description 02/03/2025 2:30 PM CDT Office Visit [facility] [address] [place] [address] Minnie Hamilton NP Chronic heart failure with preserved ejection fraction (HCC) (Primary Dx); 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, 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, with heart failure (HCC); Bilateral carotid artery stenosis 12/03/2024 9:58 AM CDT - 12/10/2024 5:42 PM CDT Hospital Encounter [place] [address] Med Surg [facility] [place] [address] Jaimie Romero MD Ali, MD Emely Staley Tharun, MD Singh, Supriya, MD Lopez, Sean Encinsa MD Left leg cellulitis (Primary Dx); COLIN (acute kidney injury) [N17.9]; Chronic heart failure with preserved ejection fraction (HCC) [I50.32]; Depression, unspecified depression type [F32.A]; Hyperkalemia [E87.5]; Primary hypertension [I10]; Acute kidney injury superimposed on chronic kidney disease Discharge Disposition: Discharge to [facility] 11/19/2024 Orders Only [facility] [address] [place] [phone] Los Escobar MD Occlusion of right carotid artery (Primary Dx); Stenosis of left carotid artery 11/18/2024 11:00 AM CDT Office Visit [facility] [address] [place] [address] [place] [phone] Polina Santiago PA Occlusion and stenosis [...] materials from doctor or pharmacy Never 10/22/2024 Social Intelligence Utilities Answer Date Recorded In the past 12 months has th e [employer], gas, oil, or water [employer] threatened to shut off services in your [...] How often do you attend chur or gnosticism services? Never 12/03/2024 Do you belong to any clubs o r organizations such as anabaptism groups, unions, fraternal or athletic groups, or [...] place to sleep or slept in a long-term (including now)? No 05/09/2023 PHQ-9 Answer Date [...] any time in the past 12 m [facility], were you homeless or living in a long-term (including now)? No 12/03/2024 Personal Safety Answer Date Recorded Have you ever been in or are you currently in a harmful physical or emotional relationship or is someone making you feel afraid or unsafe? Denies 12/03/2024 Comments No Sex and Gender Information Value Date Recorded Sex Assigned at Not on file Legal Sex Female 11:52 PM FRYER OPERATOR Gender Identity Not on file Sexual [...] * (ABNORMAL) eGFR (12/10/2024 3:13 AM CDT) [facility] eGFR 31(L) >=60 mL/min/1. 73 m2 Comment: [...] was last reviewed 2021. Testing performed by: [facility], [address] [place] [address]., [address] Blood 12/10/2024 3:13 AM CDT 12/10/2024 3:18 AM CDT us Nika Chowdhury NP LAB BLOOD ORDERABLES Final Re sult [facility] [address] [facility] Department [place] [address] * (ABNORMAL) Differential, auto (12/10/2024 3:13 AM CDT) Pathologist [facility] Neutrophil abs 6.87(H) 1.50 - 6.50 K/cumm Comment:Testing performed by : [address] [address] Imm gran abs 0.12(H) 0.00 - 0.10 K/cumm [facility] Comment:Testing performed by : [address], [place]., [address] Lymphocyte abs 1.69 0.80 - 3.30 K/cumm [facility] Comment:Testing performed by : [address], [place]., [address] Monocyte abs 0.90(H) 0.20 - 0.80 K/cumm [facility] Comment:Testing performed by : [address] [address] Eosinophil abs 0.18 0.00 - 0.50 K/cumm [facility] Comment:Testing performed by : [address] [address] Basophil abs 0.05 0.00 - 0.10 K/cumm [facility] Comment:Testing performed by : [address] [address] Neutrophil pct 70.1 % [facility] Comment: Interpretive Data Percent cell count reference ranges are not reported, since discordance with absolute values may lead to misinterpretation of CBC data. Current Interpretive Data was last revised on 2017. Testing performed by: [address] [address] Imm gran pct 1.2 % [facility] Comment: Interpretive Data Percent cell count reference ranges are not reported, since discordance with absolute values may lead to misinterpretation of CBC data. Current Interpretive Data was last revised on 2017. Testing performed by: [address] [address] Lymphocyte pct 17.2 % [facility] Comment: Interpretive Data Percent cell count reference ranges are not reported, since discordance with absolute values may lead to misinterpretation of CBC data. Current Interpretive Data was last revised on 2017. Testing performed by: [address] [address] Monocyte pct 9.2 % [facility] Comment: Interpretive Data Percent cell count reference ranges are not reported, since discordance with absolute values may lead to misinterpretation of CBC data. Current Interpretive Data was last revised on 2017. Testing performed by: [address] [address] Eosinophil pct 1.8 % [facility] Comment: Interpretive Data Percent cell count reference ranges are not reported, since discordance with absolute values may lead to misinterpretation of CBC data. Current Interpretive Data was last revised on 2017. Testing performed by: [address] [address] Basophil pct 0.5 % [facility] Comment: Interpretive Data Percent cell count reference ranges are not reported, since discordance with absolute values may lead to misinterpretation of CBC data. Current Interpretive Data was last revised on 2017. Testing performed by: [address] [address] Blood 12/10/2024 3:13 AM CDT 12/10/2024 3:18 AM CDT us Nika Chowdhury NP LAB BLOOD ORDERABLES Final Re sult [facility] [address] [facility] Department of Laboratories [place], [place] [id number] * (ABNORMAL) CBC with auto differential (12/10/2024 3:13 AM CDT) Pathologist [facility] WBC 9.81 3.80 - 9.90 K/cumm Comment:Testing performed by : [address] [address] Hgb 9.9(L) 11.9 - 15.5 g/dL [facility] Comment:Testing performed by : [address] [address] Hct 29.6(L) 35.6 - 45.5 % [facility] Comment:Testing performed by : [address] [address] Plt 397 150 - 400 K/cumm [facility] Comment:Testing performed by : [address] [address] MPV 8.5(L) 9.1 - 12.3 fL [facility] Comment:Testing performed by : [address] [address] RBC 3.47(L) 3.90 - 5.20 M/cumm [facility] Comment:Testing performed by : [address] [address] MCV 85.3 81.3 - 96.4 fL [facility] Comment:Testing performed by : [address] [address] MCH 28.5 27.1 - 33.3 pg [facility] Comment:Testing performed by : [address] [address] MCHC 33.4 32.3 - 35.7 g/dL [facility] Comment:Testing performed by : [address], [address] RDW CV 14.5 11.1 - 14.9 % [facility] Comment:Testing performed by : [address], [address] RDW SD 44.8 35.7 - 48.1 fL [facility] Comment:Testing performed by : [address] [address] NRBC abs 0.00 0.00 - 0.01 K/cumm [facility] Comment:Testing performed by : [address] [address] Blood 12/10/2024 3:13 AM CDT 12/10/2024 3:18 AM CDT us Nika Chowdhury NP LAB BLOOD ORDERABLES Final Re sult [facility] [address] [facility] Department [place] [address] * (ABNORMAL) Basic metabolic panel (12/10/2024 3:13 AM CDT) Sodium 133(L) 135 - 145 mmol/L Comment:Testing performed by : [facility], [address] [place] [address]., [address] Potassium, pl 3.9 3.3 - 4.9 mmol/L [facility] Comment:Testing performed by : [address], [place]., [address] Chloride 95(L) 97 - 110 mmol/L [facility] Comment:Testing performed by : [address], [place]., [address] CO2 27 22 - 32 mmol/L [facility] Comment:Testing performed by : [address], [place]., [address] Anion gap 11 2 - 15 mmol/L [facility] Comment:Testing performed by : [address], [place]., [address] BUN 25 6 - 25 mg/dL [facility] Comment:Testing performed by : [address], [place]., [address] Creatinine 1.57(H) 0.60 - 1.10 mg/dL [facility] Comment:Testing performed by : [address], [place]., [address] Glucose 116 70 - 199 mg/dL [facility] Comment: Interpretive Data Fasting [...] was last revised 2022. Testing performed by: [address] [address] Calcium 9.5 8.5 - 10.3 mg/dL [facility] Comment:Testing performed by : [address] [address] Blood 12/10/2024 3:13 AM CDT 12/10/2024 3:18 AM CDT us Nika Chowdhury NP LAB BLOOD ORDERABLES Final Re sult [facility] MH [address] [facility] Department [place] [address] * XR Tibia Fibula Left 2 Views [...] Teddy Mei M.D. KR: PHAM Report ID: [id number] Reading Location: [place] [address] Procedure Note Teddy Mei MD - 12/09/2024 [...] signed by Teddy NATH: PHAM Report ID: [id number] Reading Location: [id number] us Sean Ngo MD IMG XR PROCEDURES [...] was last reviewed 2021. Testing performed by: [address] [address] Blood 12/09/2024 4:02 AM CDT 12/09/2024 4:50 AM CDT us Nika Chowdhury LITERACY EDUCATION PROFESSOR LAB BLOOD ORDERABLES Final Re sult [facility] [address] [facility] Department [place] [address] * (ABNORMAL) Differential, auto (12/09/2024 4:02 AM CDT) Neutrophil abs 6.59(H) 1.50 - 6.50 K/cumm Comment:Testing performed by : [address] [address] Imm gran abs 0.19(H) 0.00 - 0.10 K/cumm [facility] Comment:Testing performed by : [address], [place]., [address] Lymphocyte abs 1.70 0.80 - 3.30 K/cumm [facility] Comment:Testing performed by : [address], [place]., [address] Monocyte abs 0.92(H) 0.20 - 0.80 K/cumm [facility] Comment:Testing performed by : [address], [place]., [address] Eosinophil abs 0.25 0.00 - 0.50 K/cumm [facility] Comment:Testing performed by : [address], [place]., [address] Basophil abs 0.07 0.00 - 0.10 K/cumm [facility] Comment:Testing performed by : [address] [address] Neutrophil pct 67.7 % [facility] Comment: Interpretive Data Percent cell count reference ranges are not reported, since discordance with absolute values may lead to misinterpretation of CBC data. Current Interpretive Data was last revised on 2017. Testing performed by: [address] [address] Imm gran pct 2.0 % [facility] Comment: Interpretive Data Percent cell count reference ranges are not reported, since discordance with absolute values may lead to misinterpretation of CBC data. Current Interpretive Data was last revised on 2017. Testing performed by: [address] [address] Lymphocyte pct 17.5 % [facility] Comment: Interpretive Data Percent cell count reference ranges are not reported, since discordance with absolute values may lead to misinterpretation of CBC data. Current Interpretive Data was last revised on 2017. Testing performed by: [address] [address] Monocyte pct 9.5 % [facility] Comment: Interpretive Data Percent cell count reference ranges are not reported, since discordance with absolute values may lead to misinterpretation of CBC data. Current Interpretive Data was last revised on 2017. Testing performed by: [address] [address] Eosinophil pct 2.6 % [facility] Comment: Interpretive Data Percent cell count reference ranges are not reported, since discordance with absolute values may lead to misinterpretation of CBC data. Current Interpretive Data was last revised on 2017. Testing performed by: [address] [address] Basophil pct 0.7 % [facility] Comment: Interpretive Data Percent cell count reference ranges are not reported, since discordance with absolute values may lead to misinterpretation of CBC data. Current Interpretive Data was last revised on 2017. Testing performed by: [address] [address] Blood 12/09/2024 4:02 AM CDT 12/09/2024 4:49 AM CDT us Nika Chowdhury NP LAB BLOOD ORDERABLES Final Re sult [facility] [address] [facility] Department [place] [address] * (ABNORMAL) CBC with auto differential (12/09/2024 4:02 AM CDT) WBC 9.72 3.80 - 9.90 K/cumm Comment:Testing performed by : [address] [address] Hgb 10.1(L) 11.9 - 15.5 g/dL [facility] Comment:Testing performed by : [address] [address] Hct 30.9(L) 35.6 - 45.5 % [facility] Comment:Testing performed by : [address] [address] Plt 442(H) 150 - 400 K/cumm [facility] Comment:Testing performed by : [address] [address] MPV 9.3 9.1 - 12.3 fL [facility] Comment:Testing performed by : [address] [place] [address] RBC 3.58(L) 3.90 - 5.20 M/cumm [facility] Comment:Testing performed by : [address], [address] MCV 86.3 81.3 - 96.4 fL [facility] Comment:Testing performed by : [address], [address] MCH 28.2 27.1 - 33.3 pg [facility] Comment:Testing performed by : [address], [address] MCHC 32.7 32.3 - 35.7 g/dL [facility] Comment:Testing performed by : [address], [address] RDW CV 14.6 11.1 - 14.9 % [facility] Comment:Testing performed by : [address], [address] RDW SD 45.8 35.7 - 48.1 fL [facility] Comment:Testing performed by : [address], [address] NRBC abs 0.00 0.00 - 0.01 K/cumm [facility] Comment:Testing performed by : [address], [address] Blood 12/09/2024 4:02 AM CDT 12/09/2024 4:49 AM CDT Nika Chowdhury LITERACY EDUCATION PROFESSOR LAB BLOOD ORDERABLES Final Re sult [facility] [address] [facility] Department [place] [address] * (ABNORMAL) Basic metabolic panel (12/09/2024 4:02 AM CDT) Sodium 135 135 - 145 mmol/L Comment:Testing performed by : [address], [address] Potassium, pl 3.8 3.3 - 4.9 mmol/L [facility] Comment:Testing performed by : [address] [address] Chloride 95(L) 97 - 110 mmol/L [facility] Comment:Testing performed by : [address] [address] CO2 28 22 - 32 mmol/L [facility] Comment:Testing performed by : [address] [address] Anion gap 12 2 - 15 mmol/L [facility] Comment:Testing performed by : [address] [address] BUN 28(H) 6 - 25 mg/dL [facility] Comment:Testing performed by : [address] [address] Creatinine 1.81(H) 0.60 - 1.10 mg/dL [facility] Comment:Testing performed by : [address] [address] Glucose 105 70 - 199 mg/dL [facility] [...] was last revised 2022. Testing performed by: [address] [address] Calcium 9.6 8.5 - 10.3 mg/dL [facility] Comment:Testing performed by : [address] [address] Blood 12/09/2024 4:02 AM CDT 12/09/2024 4:49 AM CDT us Niak Chowdhury NP LAB BLOOD ORDERABLES Final Re sult [facility] [address] [facility] [place] [address] * (ABNORMAL) eGFR (12/08/2024 4:44 AM CDT) Pathologist [facility] eGFR 26(L) >=60 mL/min/1. 73 m2 Comment: [...] was last reviewed 2021. Testing performed by: [address] [address] Blood 12/08/2024 4:44 AM CDT 12/08/2024 5:25 AM CDT us Nika Chowdhury NP LAB BLOOD ORDERABLES Final Re sult [facility] [address] [facility] Department [place] [address] * (ABNORMAL) Differential, auto (12/08/2024 4:44 AM CDT) Pathologist [facility] Neutrophil abs 6.92(H) 1.50 - 6.50 K/cumm Comment:Testing performed by : [address] [address] Imm gran abs 0.24(H) 0.00 - 0.10 K/cumm [facility] Comment:Testing performed by : [address] [address] Lymphocyte abs 1.61 0.80 - 3.30 K/cumm [facility] Comment:Testing performed by : [address], [place]., [address] Monocyte abs 0.99(H) 0.20 - 0.80 K/cumm [facility] Comment:Testing performed by : [address], [place]., [address] Eosinophil abs 0.20 0.00 - 0.50 K/cumm [facility] Comment:Testing performed by : [address], [place]., [address] Basophil abs 0.06 0.00 - 0.10 K/cumm [facility] Comment:Testing performed by : [address] [address] Neutrophil pct 69.0 % [facility] Comment: Interpretive Data Percent cell count reference ranges are not reported, since discordance with absolute values may lead to misinterpretation of CBC data. Current Interpretive Data was last revised on 2017. Testing performed by: [address] [address] Imm gran pct 2.4 % [facility] Comment: Interpretive Data Percent cell count reference ranges are not reported, since discordance with absolute values may lead to misinterpretation of CBC data. Current Interpretive Data was last revised on 2017. Testing performed by: [address] [address] Lymphocyte pct 16.1 % [facility] Comment: Interpretive Data Percent cell count reference ranges are not reported, since discordance with absolute values may lead to misinterpretation of CBC data. Current Interpretive Data was last revised on 2017. Testing performed by: [address] [address] Monocyte pct 9.9 % [facility] Comment: Interpretive Data Percent cell count reference ranges are not reported, since discordance with absolute values may lead to misinterpretation of CBC data. Current Interpretive Data was last revised on 2017. Testing performed by: [address] [address] Eosinophil pct 2.0 % [facility] Comment: Interpretive Data Percent cell count reference ranges are not reported, since discordance with absolute values may lead to misinterpretation of CBC data. Current Interpretive Data was last revised on 2017. Testing performed by: [address] [address] Basophil pct 0.6 % [facility] Comment: Interpretive Data Percent cell count reference ranges are not reported, since discordance with absolute values may lead to misinterpretation of CBC data. Current Interpretive Data was last revised on 2017. Testing performed by: [address] [address] Blood 12/08/2024 4:44 AM CDT 12/08/2024 5:32 AM CDT us Nika Chowdhury NP LAB BLOOD ORDERABLES Final Re sult [facility] [address] [facility] Department [place] [address] * (ABNORMAL) CBC with auto differential (12/08/2024 4:44 AM CDT) WBC 10.02(H) 3.80 - 9.90 K/cumm Comment:Testing performed by : [address] [address] Hgb 10.8(L) 11.9 - 15.5 g/dL [facility] Comment:Testing performed by : [address] [address] Hct 32.5(L) 35.6 - 45.5 % [facility] Comment:Testing performed by : [address] [address] Plt 466(H) 150 - 400 K/cumm [facility] Comment:Testing performed by : [address] [address] MPV 9.0(L) 9.1 - 12.3 fL [facility] Comment:Testing performed by : [address] [address] RBC 3.78(L) 3.90 - 5.20 M/cumm [facility] Comment:Testing performed by : [address] [address] MCV 86.0 81.3 - 96.4 fL [facility] Comment:Testing performed by : [address] [address] MCH 28.6 27.1 - 33.3 pg [facility] Comment:Testing performed by : [address] [address] MCHC 33.2 32.3 - 35.7 g/dL [facility] Comment:Testing performed by : [address] [address] RDW CV 14.7 11.1 - 14.9 % [facility] Comment:Testing performed by : [address] [address] RDW SD 46.1 35.7 - 48.1 fL [facility] Comment:Testing performed by : [address] [address] NRBC abs 0.00 0.00 - 0.01 K/cumm [facility] Comment:Testing performed by : [address] [address] Blood 12/08/2024 4:44 AM CDT 12/08/2024 5:32 AM CDT Nika Chowdhury NP LAB BLOOD ORDERABLES Final Re sult [facility] [address] [facility] Department of Laboratories [place], [place] [id number] * (ABNORMAL) Basic metabolic panel (12/08/2024 4:44 AM CDT) Sodium 135 135 - 145 mmol/L Comment:Testing performed by : [address] [address] Potassium, pl 4.0 3.3 - 4.9 mmol/L [facility] Comment:Testing performed by : [address], [address] Chloride 95(L) 97 - 110 mmol/L [facility] Comment:Testing performed by : [address] [address] CO2 28 22 - 32 mmol/L [facility] Comment:Testing performed by : [address] [address] Anion gap 12 2 - 15 mmol/L [facility] Comment:Testing performed by : [address] [address] BUN 26(H) 6 - 25 mg/dL [facility] Comment:Testing performed by : [address] [address] Creatinine 1.83(H) 0.60 - 1.10 mg/dL [facility] Comment:Testing performed by : [address] [address] Glucose 113 70 - 199 mg/dL [facility] [...] was last revised 2022. Testing performed by: [address] [address] Calcium 9.6 8.5 - 10.3 mg/dL [facility] Comment:Testing performed by : [address] [address] Blood 12/08/2024 4:44 AM CDT 12/08/2024 5:25 AM CDT us Nika Chowdhury NP LAB BLOOD ORDERABLES Final Re sult [facility] [address] [facility] Department [place] [address] * (ABNORMAL) eGFR (12/07/2024 4:30 AM CDT) [...] was last reviewed 2021. Testing performed by: [address] [address] Blood 12/07/2024 4:30 AM CDT 12/07/2024 5:09 AM CDT us iNka Chowdhury NP LAB BLOOD ORDERABLES Final Re sult [facility] [address] [facility] Department [place] [address] * (ABNORMAL) Differential, auto (12/07/2024 4:30 AM CDT) Neutrophil abs 7.8(H) 1.5 - 6.5 K/cumm Comment:Testing performed by : [address] [address] Imm gran abs 0.2(H) 0.0 - 0.1 K/cumm [facility]A Comment:Testing performed by : [address] [address] Lymphocyte abs 1.5 0.8 - 3.3 K/cumm [facility] Comment:Testing performed by : [facility], [address] [place] [address], [place]., [address] Monocyte abs 1.1(H) 0.2 - 0.8 K/cumm [facility] Comment:Testing performed by : [facility], [address] [place] [address], [place]., [address] Eosinophil abs 0.4 0.0 - 0.5 K/cumm [facility] Comment:Testing performed by : [address], [place]., [address] Basophil abs 0.1 0.0 - 0.1 K/cumm [facility] Comment:Testing performed by : [address] [address] Neutrophil pct 71.0 % [facility] Comment: Interpretive Data Percent cell count reference ranges are not reported, since discordance with absolute values may lead to misinterpretation of CBC data. Current Interpretive Data was last revised on 2017. Testing performed by: [address] [address] Imm gran pct 2.0 % [facility] Comment: Interpretive Data Percent cell count reference ranges are not reported, since discordance with absolute values may lead to misinterpretation of CBC data. Current Interpretive Data was last revised on 2017. Testing performed by: [address] [address] Lymphocyte pct 13.6 % [facility] Comment: Interpretive Data Percent cell count reference ranges are not reported, since discordance with absolute values may lead to misinterpretation of CBC data. Current Interpretive Data was last revised on 2017. Testing performed by: [address] [address] Monocyte pct 9.6 % [facility] Comment: Interpretive Data Percent cell count reference ranges are not reported, since discordance with absolute values may lead to misinterpretation of CBC data. Current Interpretive Data was last revised on 2017. Testing performed by: [address] [address] Eosinophil pct 3.2 % [facility] Comment: Interpretive Data Percent cell count reference ranges are not reported, since discordance with absolute values may lead to misinterpretation of CBC data. Current Interpretive Data was last revised on 2017. Testing performed by: [address] [address] Basophil pct 0.6 % [facility] Comment: Interpretive Data Percent cell count reference ranges are not reported, since discordance with absolute values may lead to misinterpretation of CBC data. Current Interpretive Data was last revised on 2017. Testing performed by: [address] [address] Blood 12/07/2024 4:30 AM CDT 12/07/2024 5:18 AM CDT us Nika Chowdhury NP LAB BLOOD ORDERABLES Final Re sult HANNAH LEA [facility]0 [facility] Department [place] [address] * (ABNORMAL) CBC with auto differential (12/07/2024 4:30 AM CDT) WBC 11.0(H) 3.8 - 9.9 K/cumm Comment:Testing performed by : [address] [address] Hgb 10.4(L) 11.9 - 15.5 g/dL [facility]NA[facility] LEA Comment:Testing performed by : [address] [address] Hct 32.4(L) 35.6 - 45.5 % [facility] LEA Comment:Testing performed by : [address] [address] Plt 440(H) 150 - 400 K/cumm [facility]ANNA[facility] LEA Comment:Testing performed by : [address] [address] MPV 9.5 9.1 - 12.3 fL [facility]NA[facility] LEA Comment:Testing performed by : [address] [address] RBC 3.75(L) 3.90 - 5.20 M/cumm [facility]NA[facility] LEA Comment:Testing performed by : [address] [address] MCV 86.4 81.3 - 96.4 fL [facility]NA[facility] LEA Comment:Testing performed by : [address] [address] MCH 27.7 27.1 - 33.3 pg [facility]ANNA[facility] LEA Comment:Testing performed by : [address] [address] MCHC 32.1(L) 32.3 - 35.7 g/dL [facility]ANNAH LAE Comment:Testing performed by : [address] [address] RDW CV 14.7 11.1 - 14.9 % [facility]NA[facility] LEA Comment:Testing performed by : [address] [address] RDW SD 46.4 35.7 - 48.1 fL [facility]NA[facility] LEA Comment:Testing performed by : [address] [address] NRBC abs 0.00 0.00 - 0.01 K/cumm [facility]ANNA[facility] LEA Comment:Testing performed by : [address] [address] Blood 12/07/2024 4:30 AM CDT 12/07/2024 5:18 AM CDT us Nika Chowdhury NP LAB BLOOD ORDERABLES Final Re sult HANNAH 6627 [facility] Department of Laboratories [place], [place] [id number] * (ABNORMAL) Basic metabolic panel (12/07/2024 4:30 AM CDT) Sodium 138 135 - 145 mmol/L Comment:Testing performed by : [address] [address] Potassium, pl 4.3 3.3 - 4.9 mmol/L [facility]ANNA[facility] LEA Comment:Testing performed by : [address] [address] Chloride 97 97 - 110 mmol/L [facility]NA[facility] LEA Comment:Testing performed by : [address] [place] [address] CO2 28 22 - 32 mmol/L HANNAH Comment:Testing performed by : [address] [address] Anion gap 13 2 - 15 mmol/L HANNAH Comment:Testing performed by : [address] [address] BUN 24 6 - 25 mg/dL HANNAH Comment:Testing performed by : [address] [address] Creatinine 1.49(H) 0.60 - 1.10 mg/dL HANNAH Comment:Testing performed by : [address] [address] Glucose 114 70 - 199 mg/dL HANNAH [...] was last revised 2022. Testing performed by: [address] [address] Calcium 9.8 8.5 - 10.3 mg/dL HANNAH Comment:Testing performed by : [address] [address] Blood 12/07/2024 4:30 AM CDT 12/07/2024 5:09 AM CDT us Nika Chowdhury NP LAB BLOOD ORDERABLES Final Re sult HANNAH LEA 0732 [facility] Department [place] [address] * (ABNORMAL) eGFR (12/06/2024 5:07 AM CDT) Pathologist [facility] eGFR 33(L) >=60 mL/min/1. 73 m2 Comment: [...] was last reviewed 2021. Testing performed by: [address] [address] Blood 12/06/2024 5:07 AM CDT 12/06/2024 5:49 AM CDT us Nika Chowdhury NP LAB BLOOD ORDERABLES Final Re sult HANNAH LEONORA 5251 [facility] Department of Laboratories [place], [place] [id number] * (ABNORMAL) Differential, auto (12/06/2024 5:07 AM CDT) Pathologist [facility] Neutrophil abs 6.1 1.5 - 6.5 K/cumm Comment:Testing performed by : [address] [address] Imm gran abs 0.2(H) 0.0 - 0.1 K/cumm HANNAH LEA Comment:Testing performed by : [address] [address] Lymphocyte abs 1.6 0.8 - 3.3 K/cumm HANNAH LEA Comment:Testing performed by : [address] [address] Monocyte abs 0.9(H) 0.2 - 0.8 K/cumm [facility] Comment:Testing performed by : [address] [address] Eosinophil abs 0.4 0.0 - 0.5 K/cumm [facility] Comment:Testing performed by : [address] [address] Basophil abs 0.1 0.0 - 0.1 K/cumm [facility] Comment:Testing performed by : [address] [address] Neutrophil pct 65.2 % [facility] Comment: Interpretive Data Percent cell count reference ranges are not reported, since discordance with absolute values may lead to misinterpretation of CBC data. Current Interpretive Data was last revised on 2017. Testing performed by: [address] [address] Imm gran pct 2.4 % [facility] Comment: Interpretive Data Percent cell count reference ranges are not reported, since discordance with absolute values may lead to misinterpretation of CBC data. Current Interpretive Data was last revised on 2017. Testing performed by: [address] [address] Lymphocyte pct 17.4 % [facility] Comment: Interpretive Data Percent cell count reference ranges are not reported, since discordance with absolute values may lead to misinterpretation of CBC data. Current Interpretive Data was last revised on 2017. Testing performed by: [address] [address] Monocyte pct 9.9 % [facility] Comment: Interpretive Data Percent cell count reference ranges are not reported, since discordance with absolute values may lead to misinterpretation of CBC data. Current Interpretive Data was last revised on 2017. Testing performed by: [address] [address] Eosinophil pct 4.5 % [facility] Comment: Interpretive Data Percent cell count reference ranges are not reported, since discordance with absolute values may lead to misinterpretation of CBC data. Current Interpretive Data was last revised on 2017. Testing performed by: [address] [address] Basophil pct 0.6 % [facility] Comment: Interpretive Data Percent cell count reference ranges are not reported, since discordance with absolute values may lead to misinterpretation of CBC data. Current Interpretive Data was last revised on 2017. Testing performed by: [address] [address] Blood 12/06/2024 5:07 AM CDT 12/06/2024 5:49 AM CDT us Nika Chowdhury NP LAB BLOOD ORDERABLES Final Re sult HANNAH 9509 [facility] Department [place] [address] * (ABNORMAL) CBC with auto differential (12/06/2024 5:07 AM CDT) WBC 9.3 3.8 - 9.9 K/cumm Comment:Testing performed by : [address] [address] Hgb 9.7(L) 11.9 - 15.5 g/dL HANNAH Comment:Testing performed by : [address] [address] Hct 30.0(L) 35.6 - 45.5 % [facility]ANNAH Comment:Testing performed by : [address] [address] Plt 410(H) 150 - 400 K/cumm HANNAH Comment:Testing performed by : [address] [address] MPV 9.1 9.1 - 12.3 fL HANNAH Comment:Testing performed by : [address] [address] RBC 3.43(L) 3.90 - 5.20 M/cumm HANNAH Comment:Testing performed by : [address] [address] MCV 87.5 81.3 - 96.4 fL HANNAH Comment:Testing performed by : [address] [address] MCH 28.3 27.1 - 33.3 pg HANNAH LEA Comment:Testing performed by : [address] [address] MCHC 32.3 32.3 - 35.7 g/dL [facility]ANNAH LEA Comment:Testing performed by : [address] [address] RDW CV 15.0(H) 11.1 - 14.9 % [facility]NA[facility] LEA Comment:Testing performed by : [address] [address] RDW SD 47.5 35.7 - 48.1 fL [facility]ANNAH LEA Comment:Testing performed by : [address] [address] NRBC abs 0.00 0.00 - 0.01 K/cumm [facility]ANNAH LEA Comment:Testing performed by : [address] [address] Blood 12/06/2024 5:07 AM CDT 12/06/2024 5:49 AM CDT us Nika Chowdhury NP LAB BLOOD ORDERABLES Final Re sult HANNAH LEA 3883 [facility] Department of Laboratories [place], [place] [id number] * (ABNORMAL) Basic metabolic panel (12/06/2024 5:07 AM CDT) Pathologist [facility] Sodium 137 135 - 145 mmol/L Comment:Testing performed by : [address] [address] Potassium, pl 4.4 3.3 - 4.9 mmol/L [facility]NA[facility] LEA Comment:Testing performed by : [address] [address] Chloride 97 97 - 110 mmol/L [facility]NA[facility] LEA Comment:Testing performed by : [address] [address] CO2 30 22 - 32 mmol/L [facility] LEA Comment:Testing performed by : [address] [place] [address] Anion gap 10 2 - 15 mmol/L HANNAH Comment:Testing performed by : [address] [address] BUN 22 6 - 25 mg/dL [facility]ANNAH Comment:Testing performed by : [address] [address] Creatinine 1.50(H) 0.60 - 1.10 mg/dL [facility]ANNAH Comment:Testing performed by : [address] [address] Glucose 108 70 - 199 mg/dL HANNAH [...] was last revised 2022. Testing performed by: [address] [address] Calcium 9.1 8.5 - 10.3 mg/dL [facility]ANNAH Comment:Testing performed by : [address] [address] Blood 12/06/2024 5:07 AM CDT 12/06/2024 5:49 AM CDT us Nika Chowdhury NP LAB BLOOD ORDERABLES Final Re sult HANNAH 2454 [facility] Department [place] [address] * (ABNORMAL) eGFR (12/05/2024 4:58 [...] was last reviewed 2021. Testing performed by: [address] [address] Blood 12/05/2024 4:58 AM CDT 12/05/2024 5:12 AM CDT us Nika Chowdhury NP LAB BLOOD ORDERABLES Final Re sult HANNAH 8731 [facility] Department [place] [address] * (ABNORMAL) Differential, auto (12/05/2024 4:58 AM CDT) Neutrophil abs 7.3(H) 1.5 - 6.5 K/cumm Comment:Testing performed by : [address] [address] Imm gran abs 0.2(H) 0.0 - 0.1 K/cumm [facility]NA[facility] LEA Comment:Testing performed by : [address] [address] Lymphocyte abs 1.3 0.8 - 3.3 K/cumm [facility]ANNAH LEA Comment:Testing performed by : [address] [address] Monocyte abs 1.0(H) 0.2 - 0.8 K/cumm [facility]NAH LEA Comment:Testing performed by : [address] [address] Eosinophil abs 0.4 0.0 - 0.5 K/cumm [facility] Comment:Testing performed by : [address] [address] Basophil abs 0.0 0.0 - 0.1 K/cumm [facility] Comment:Testing performed by : [address] [address] Neutrophil pct 71.4 % [facility] Comment: Interpretive Data Percent cell count reference ranges are not reported, since discordance with absolute values may lead to misinterpretation of CBC data. Current Interpretive Data was last revised on 2017. Testing performed by: [address] [address] Imm gran pct 1.5 % [facility] Comment: Interpretive Data Percent cell count reference ranges are not reported, since discordance with absolute values may lead to misinterpretation of CBC data. Current Interpretive Data was last revised on 2017. Testing performed by: [address] [address] Lymphocyte pct 12.9 % [facility] Comment: Interpretive Data Percent cell count reference ranges are not reported, since discordance with absolute values may lead to misinterpretation of CBC data. Current Interpretive Data was last revised on 2017. Testing performed by: [address] [address] Monocyte pct 10.0 % [facility] Comment: Interpretive Data Percent cell count reference ranges are not reported, since discordance with absolute values may lead to misinterpretation of CBC data. Current Interpretive Data was last revised on 2017. Testing performed by: [address] [address] Eosinophil pct 3.8 % [facility] Comment: Interpretive Data Percent cell count reference ranges are not reported, since discordance with absolute values may lead to misinterpretation of CBC data. Current Interpretive Data was last revised on 2017. Testing performed by: [address] [address] Basophil pct 0.4 % [facility] Comment: Interpretive Data Percent cell count reference ranges are not reported, since discordance with absolute values may lead to misinterpretation of CBC data. Current Interpretive Data was last revised on 2017. Testing performed by: [address] [address] Blood 12/05/2024 4:58 AM CDT 12/05/2024 5:12 AM CDT Nika Chowdhury NP LAB BLOOD ORDERABLES Final Re sult HANNAH 6443 [facility] Department [place] [address] * (ABNORMAL) CBC with auto differential (12/05/2024 4:58 AM CDT) WBC 10.3(H) 3.8 - 9.9 K/cumm Comment:Testing performed by : [address] [address] Hgb 9.1(L) 11.9 - 15.5 g/dL HANNAH Comment:Testing performed by : [address] [address] Hct 28.4(L) 35.6 - 45.5 % [facility]ANNAH Comment:Testing performed by : [address] [address] Plt 396 150 - 400 K/cumm HANNAH Comment:Testing performed by : [address] [address] MPV 9.1 9.1 - 12.3 fL HANNAH Comment:Testing performed by : [address] [address] RBC 3.23(L) 3.90 - 5.20 M/cumm HANNAH Comment:Testing performed by : [address] [address] MCV 87.9 81.3 - 96.4 fL HANNAH Comment:Testing performed by : [address] [address] MCH 28.2 27.1 - 33.3 pg HANNAH LEA Comment:Testing performed by : [address] [address] MCHC 32.0(L) 32.3 - 35.7 g/dL [facility]ANNAH LEA Comment:Testing performed by : [address] [address] RDW CV 15.0(H) 11.1 - 14.9 % [facility]NA[facility] LEA Comment:Testing performed by : [address] [address] RDW SD 48.8(H) 35.7 - 48.1 fL [facility]NA[facility] LEA Comment:Testing performed by : [address] [address] NRBC abs 0.00 0.00 - 0.01 K/cumm [facility]NA[facility] LEA Comment:Testing performed by : [address] [address] Blood 12/05/2024 4:58 AM CDT 12/05/2024 5:12 AM CDT us Nika Chowdhury NP LAB BLOOD ORDERABLES Final Re sult HANNAH [facility] Department [place] [address] * (ABNORMAL) Basic metabolic panel (12/05/2024 4:58 AM CDT) Sodium 139 135 - 145 mmol/L Comment:Testing performed by : [address] [address] Potassium, pl 4.5 3.3 - 4.9 mmol/L [facility]ANNA[facility] LEA Comment:Testing performed by : [address] [address] Chloride 101 97 - 110 mmol/L [facility]NA[facility] LEA Comment:Testing performed by : [address] [address] CO2 28 22 - 32 mmol/L [facility]ANNA[facility] LEA Comment:Testing performed by : [address] [address] Anion gap 10 2 - 15 mmol/L [facility]ANNAH LEA Comment:Testing performed by : [address] [address] BUN 22 6 - 25 mg/dL HANNAH Comment:Testing performed by : [address] [address] Creatinine 1.42(H) 0.60 - 1.10 mg/dL HANNAH Comment:Testing performed by : [address] [address] Glucose 109 70 - 199 mg/dL HANNAH [...] was last revised 2022. Testing performed by: [address] [address] Calcium 9.3 8.5 - 10.3 mg/dL [facility]ANNAH Comment:Testing performed by : [address] [address] Blood 12/05/2024 4:58 AM CDT 12/05/2024 5:12 AM CDT Nika Chowdhury NP LAB BLOOD ORDERABLES Final Re sult HANNAH 1453 [facility] Department [place] [address] * (ABNORMAL) eGFR (12/04/2024 5:05 [...] was last reviewed 2021. Testing performed by: [address] [address] Blood 12/04/2024 5:05 AM CDT 12/04/2024 5:29 AM CDT Nika Chowdhury NP LAB BLOOD ORDERABLES Final Re sult HANNAH 4062 [facility] Department [place] [address] * (ABNORMAL) Differential, auto (12/04/2024 5:05 AM CDT) Neutrophil abs 6.4 1.5 - 6.5 K/cumm Comment:Testing performed by : [address] [address] Imm gran abs 0.2(H) 0.0 - 0.1 K/cumm HANNAH Comment:Testing performed by : [address] [address] Lymphocyte abs 1.2 0.8 - 3.3 K/cumm HANNAH Comment:Testing performed by : [address] [address] Monocyte abs 1.0(H) 0.2 - 0.8 K/cumm HANNAH Comment:Testing performed by : [address] [address] Eosinophil abs 0.3 0.0 - 0.5 K/cumm HANNAH Comment:Testing performed by : [address] [address] Basophil abs 0.1 0.0 - 0.1 K/cumm HANNAH Comment:Testing performed by : [address] [address] Neutrophil pct 70.2 % [facility] Comment: Interpretive Data Percent cell count reference ranges are not reported, since discordance with absolute values may lead to misinterpretation of CBC data. Current Interpretive Data was last revised on 2017. Testing performed by: [address] [address] Imm gran pct 1.7 % [facility] Comment: Interpretive Data Percent cell count reference ranges are not reported, since discordance with absolute values may lead to misinterpretation of CBC data. Current Interpretive Data was last revised on 2017. Testing performed by: [address] [address] Lymphocyte pct 12.8 % [facility] Comment: Interpretive Data Percent cell count reference ranges are not reported, since discordance with absolute values may lead to misinterpretation of CBC data. Current Interpretive Data was last revised on 2017. Testing performed by: [address] [address] Monocyte pct 11.5 % [facility] Comment: Interpretive Data Percent cell count reference ranges are not reported, since discordance with absolute values may lead to misinterpretation of CBC data. Current Interpretive Data was last revised on 2017. Testing performed by: [address] [address] Eosinophil pct 3.1 % [facility] Comment: Interpretive Data Percent cell count reference ranges are not reported, since discordance with absolute values may lead to misinterpretation of CBC data. Current Interpretive Data was last revised on 2017. Testing performed by: [address] [address] Basophil pct 0.7 % [facility] Comment: Interpretive Data Percent cell count reference ranges are not reported, since discordance with absolute values may lead to misinterpretation of CBC data. Current Interpretive Data was last revised on 2017. Testing performed by: [address] [address] Blood 12/04/2024 5:05 AM CDT 12/04/2024 5:29 AM CDT us Nika Chowdhury NP LAB BLOOD ORDERABLES Final Re sult HANNAH 4500 [facility] Department [place] [address] * (ABNORMAL) CBC with auto differential (12/04/2024 5:05 AM CDT) WBC 9.1 3.8 - 9.9 K/cumm Comment:Testing performed by : [address] [address] Hgb 8.9(L) 11.9 - 15.5 g/dL HANNAH Comment:Testing performed by : [address] [address] Hct 28.5(L) 35.6 - 45.5 % [facility]ANNAH Comment:Testing performed by : [address] [address] Plt 383 150 - 400 K/cumm HANNAH Comment:Testing performed by : [address] [address] MPV 9.2 9.1 - 12.3 fL HANNAH Comment:Testing performed by : [address] [address] RBC 3.20(L) 3.90 - 5.20 M/cumm HANNAH Comment:Testing performed by : [address] [address] MCV 89.1 81.3 - 96.4 fL HANNAH Comment:Testing performed by : [address] [address] MCH 27.8 27.1 - 33.3 pg HANNAH Comment:Testing performed by : [address] [address] MCHC 31.2(L) 32.3 - 35.7 g/dL HANNHA LEA Comment:Testing performed by : [address] [address] RDW CV 15.0(H) 11.1 - 14.9 % [facility]ANNAH LEA Comment:Testing performed by : [address] [address] RDW SD 49.6(H) 35.7 - 48.1 fL HANNAH LEA Comment:Testing performed by : [address] [address] NRBC abs 0.00 0.00 - 0.01 K/cumm HANNAH Comment:Testing performed by : [address] [address] Blood 12/04/2024 5:05 AM CDT 12/04/2024 5:29 AM CDT Nika Chowdhury NP LAB BLOOD ORDERABLES Final Re sult HANNAH 4500 [facility] Department [place] [address] * (ABNORMAL) Basic metabolic panel (12/04/2024 5:05 AM CDT) Sodium 139 135 - 145 mmol/L Comment:Testing performed by : [address] [address] Potassium, pl 4.6 3.3 - 4.9 mmol/L HANNAH LEA Comment:Testing performed by : [address] [address] Chloride 100 97 - 110 mmol/L HANNAH Comment:Testing performed by : [address] [address] CO2 28 22 - 32 mmol/L HANNAH LEA Comment:Testing performed by : [address] [address] Anion gap 11 2 - 15 mmol/L HANNAH Comment:Testing performed by : [address] [address] BUN 26(H) 6 - 25 mg/dL HANNAH LEA Comment:Testing performed by : [address] [address] Creatinine 1.30(H) 0.60 - 1.10 mg/dL HANNAH Comment:Testing performed by : [address] [address] Glucose 104 70 - 199 mg/dL HANNAH [...] was last revised 2022. Testing performed by: [address] [address] Calcium 9.0 8.5 - 10.3 mg/dL HANNAH Comment:Testing performed by : [address] [address] Blood 12/04/2024 5:05 AM CDT 12/04/2024 5:29 AM CDT us Nika Chowdhury NP LAB BLOOD ORDERABLES Final Re sult HANNAH 3881 [facility] Department [place] [address] * US VEIN DUPLEX LOWER EXTREMITY LEFT LIMITED, UNILATERAL (12/03/2024 4:47 PM CDT) Anatomical Region Laterality Modality Vascular Left Ultrasound 12/03/2024 4:21 PM CDT Narrative 12/04/2024 8:56 AM CDT Lower Extremity Venous Report Patient Name: LUCILLE SEVILLA MAE : 1935 (89y 2m) Gender: F Study Date: 12/03/2024 04:21:28 PM Spearer: Ariella Alonzo RDMS,[facility] Location: [id number] Order Provider: NIKA CHOWDHURY Quality: Adequate Ref [...] distal augmentation. Provider Notification: RUBY Chowdhury via [employer]. CONCLUSIONS: 1. There is no evidence of [...] Gender: F Study Date: 12/03/2024 04:21:28 PM Spearer: Ariella Alonzo RDMS,[facility] Location:[id number] Order Provider: NIKA CHOWDHURY Quality: Adequate Ref [...] to distalaugmentation. Provider Notification: RUBY Chowdhury via [employer]. CONCLUSIONS: 1. There is no evidence of [...] ur Yellow Yellow Comment:Testing performed by : [address] [address] Clarity, ur Clear Clear HANNAH Comment:Testing performed by : [address], [place]., [address] Specific gravity, ur 1.009 1.003 - 1.030 HANNAH Comment:Testing performed by : [address] [address] pH, urine 6.5 HANNAH Comment: Interpretive Data U rine pH is affected by diet, medications, systemic acid-base disturbances, and renal tubular function. pH may affect urinary stone formation. For example, urine pH below 6.0 may help reduce the tendency for calcium phosphate stones and pH greater than 6.0 may reduce the tendency for uric acid stone formation. Source: [facility] [employer] Current Interpretive Data was last revised on 2017 Testing performed by: [address] [address] Protein, ur ql Negative Negative HANNAH Comment:Testing performed by : [address] [address] Glucose, ur ql Negative Negative HANNAH Comment:Testing performed by : [address] [address] Ketones, ur Negative Negative HANNAH Comment:Testing performed by : [address] [address] Bilirubin, ur Negative Negative HANNAH Comment:Testing performed by : [address] [address] Blood, ur Negative Negative HANNAH Comment:Testing performed by : [address] [address] Urobilinogen, ur <2.0 <2.0 mg/dL HANNAH Comment:Testing performed by : [address] [address] Nitrite, ur Negative Negative HANNAH Comment:Testing performed by : [address] [address] Leukocyte esterase, ur 3+(A) Negative CERNER Comment:Testing performed by : [facility], [address] [place] [address]., [address] UA reflex comment Reflex to microscopic UA will be performed. HANNAH Comment:Testing performed by : [facility], [address] [place] [address]., [address] Urine 12/03/2024 12:5 7 PM CDT 12/03/2024 1:01 PM CDT Narrative HANNAH - 12/03/2024 1:04 PM CDT If patient unable to urinate, straight cath Jaimie Romero MD LAB MICROBIOLOGY - GENERAL ORDERABLES Final Result Performing Organization Address City/[facility] Co de Phone Number HANNAH [address] [facility] [place] [address] * (ABNORMAL) Urinalysis, microscopic only (12/03/2024 12:57 PM CDT) WBC, ur 11-20(A) 0 - 5 /HPF Comment:Testing performed by : [facility], [address] [place] [address]., [address] RBC, ur 0-2 0 - 2 /HPF HANNAH Comment:Testing performed by : [address] [address] Culture Reflex Comment Reflex to urine culture will be performed. HANNAH Comment:Testing performed by : [address] [address] Urine 12/03/2024 12:5 7 PM CDT 12/03/2024 1:01 PM CDT us Jaimie Romero MD LAB URINE ORDERABLES Final Result Performing Organization Address City/[facility]/ZIP Co de Phone Number HANNAH [facility] [place] [address] * Urine culture Urine (12/03/2024 12:57 PM CDT) Report Final Report: Less than 100,000 colonies/mL (clinically insignificant growth based on current clinical standards) Comment:Testing performed by : [facility], [address] [place]., [address] Organism (CLINICALLY INSIGNIFICANT GROWTH HANNAH LEA Urine 12/03/2024 12:5 7 PM CDT 12/03/2024 4:29 PM CDT Narrative HANNAH LEA - 12/04/2024 5:30 PM CDT Urine culture reflexed based upon urinalysis results. Testing performed by [facility] ([phone]) Jaimie Romero MD LAB MICROBIOLOGY - GENERAL ORDERABLES Final Result HANNAH LEA [address] [facility] Department [place] [address] * Blood culture Blood Peripheral (12/03/2024 11:27 AM CDT) Report Final Report: No growth Comment:Testing performed by : [facility], [address] [place]., [address] Blood (Peripheral) 12/03/2024 11:27 AM CDT 12/03/2024 [...] performance characteristics have been verified by the [facility]. For questions about this culture, contact the Microbiology Laboratory at [phone]. Interpretive data was last revised on 24. Jaimie Romero MD LAB MICROBIOLOGY - GENERAL ORDERABLES Final Result HANNAH [address] [facility] Department [place] [address] * Blood culture Blood Peripheral (12/03/2024 11:27 AM CDT) Report Final Report: No growth Comment:Testing performed by : [facility], [address] [place] [address] Blood (Peripheral) 12/03/2024 11:27 AM CDT 12/03/2024 4:57 PM CDT [facility] HANNAH - 12/08/2024 7:00 AM CDT Draw [...] performance characteristics have been verified by the [facility]. For questions about this culture, contact the Microbiology Laboratory at [phone]. Interpretive data was last revised on 24. Jaimie Romero MD LAB MICROBIOLOGY - GENERAL ORDERABLES Final Result HANNAH [facility] [place] [address] * Sepsis Lactate w/ Reflex (12/03/2024 10:16 AM CDT) Sepsis Lactate 1.7 0.7 - 2.0 mmol/L Comment:Testing performed by : [facility], [address] [place] [address]., [address] Blood 12/03/2024 10:1 6 AM CDT 12/03/2024 10:21 AM CDT Jaimie Romero MD LAB BLOOD ORDERABLES Final Result Performing Organization Address City/[facility] Co de Phone Number HANNAH [facility] [place] [address] * (ABNORMAL) eGFR (12/03/2024 10:16 AM CDT) [...] was last reviewed 2021. Testing performed by: [address] [address] Blood 12/03/2024 10:1 6 AM CDT 12/03/2024 10:21 AM CDT Jaimie Romero MD LAB BLOOD ORDERABLES Final Result [facility] [address] [facility] Department [place] [address] * (ABNORMAL) Differential, auto (12/03/2024 10:16 AM CDT) Neutrophil abs 8.1(H) 1.5 - 6.5 K/cumm Comment:Testing performed by : [address] [address] Imm gran abs 0.2(H) 0.0 - 0.1 K/cumm HANNAH Comment:Testing performed by : [address] [address] Lymphocyte abs 1.0 0.8 - 3.3 K/cumm HANNAH Comment:Testing performed by : [address] [address] Monocyte abs 1.0(H) 0.2 - 0.8 K/cumm HANNAH Comment:Testing performed by : [address] [address] Eosinophil abs 0.3 0.0 - 0.5 K/cumm HANNAH Comment:Testing performed by : [address] [address] Basophil abs 0.1 0.0 - 0.1 K/cumm HANNAH Comment:Testing performed by : [address] [address] Neutrophil pct 76.0 % HANNAH Comment: Interpretive Data Percent cell count reference ranges are not reported, since discordance with absolute values may lead to misinterpretation of CBC data. Current Interpretive Data was last revised on 2017. Testing performed by: [address] [address] Imm gran pct 1.4 % [facility] Comment: Interpretive Data Percent cell count reference ranges are not reported, since discordance with absolute values may lead to misinterpretation of CBC data. Current Interpretive Data was last revised on 2017. Testing performed by: [address] [address] Lymphocyte pct 9.5 % [facility] Comment: Interpretive Data Percent cell count reference ranges are not reported, since discordance with absolute values may lead to misinterpretation of CBC data. Current Interpretive Data was last revised on 2017. Testing performed by: [address] [address] Monocyte pct 9.4 % [facility] Comment: Interpretive Data Percent cell count reference ranges are not reported, since discordance with absolute values may lead to misinterpretation of CBC data. Current Interpretive Data was last revised on 2017. Testing performed by: [address] [address] Eosinophil pct 3.1 % [facility] Comment: Interpretive Data Percent cell count reference ranges are not reported, since discordance with absolute values may lead to misinterpretation of CBC data. Current Interpretive Data was last revised on 2017. Testing performed by: [address] [address] Basophil pct 0.6 % [facility] Comment: Interpretive Data Percent cell count reference ranges are not reported, since discordance with absolute values may lead to misinterpretation of CBC data. Current Interpretive Data was last revised on 2017. Testing performed by: [address] [address] Blood 12/03/2024 10:1 6 AM CDT 12/03/2024 10:21 AM CDT Jaimie Romero MD LAB BLOOD ORDERABLES Final Result HANNAH LEA [address] [facility] Department of Laboratories [place], [place] [id number] * (ABNORMAL) CBC with auto differential (12/03/2024 10:16 AM CDT) WBC 10.6(H) 3.8 - 9.9 K/cumm Comment:Testing performed by : [address], [address] Hgb 9.9(L) 11.9 - 15.5 g/dL HANNAH Comment:Testing performed by : [address] [address] Hct 31.3(L) 35.6 - 45.5 % HANNAH Comment:Testing performed by : [address] [address] Plt 384 150 - 400 K/cumm HANNAH Comment:Testing performed by : [address] [address] MPV 9.0(L) 9.1 - 12.3 fL HANNAH Comment:Testing performed by : [address], [address] RBC 3.51(L) 3.90 - 5.20 M/cumm HANNAH Comment:Testing performed by : [address] [address] MCV 89.2 81.3 - 96.4 fL CERGEMMA Comment:Testing performed by : [address], [address] MCH 28.2 27.1 - 33.3 pg CERGEMMA Comment:Testing performed by : [address] [address] MCHC 31.6(L) 32.3 - 35.7 g/dL HANNAH Comment:Testing performed by : [address], [address] RDW CV 15.2(H) 11.1 - 14.9 % HANNAH Comment:Testing performed by : [address] [address] RDW SD 49.8(H) 35.7 - 48.1 fL HANNAH Comment:Testing performed by : [address], [address] NRBC abs 0.00 0.00 - 0.01 K/cumm HANNAH Comment:Testing performed by : [address] [address] Blood 12/03/2024 10:1 6 AM CDT 12/03/2024 10:21 AM CDT Jaimie Romero MD LAB BLOOD ORDERABLES Final Result [facility] [place] [address] * Erythrocyte sedimentation rate (12/03/2024 10:16 AM CDT) Erythrocyte sedimentation rate 28 1 - 30 mm/hr Comment:Testing performed by : [address] [address] Blood 12/03/2024 10:1 6 AM CDT 12/03/2024 10:21 AM CDT Nika Chowdhury NP LAB BLOOD ORDERABLES Final Re sult Performing Organization Address [facility] Co de Phone Number [address] [place] [address] * (ABNORMAL) CRP (acute phase) (12/03/2024 10:16 AM CDT) CRP 14.5(H) <=10.0 mg/L Comment:Testing performed by : [address] [address] Blood 12/03/2024 10:1 6 AM CDT 12/03/2024 10:21 AM CDT Nika Chowdhury NP LAB BLOOD ORDERABLES Final Re sult [address] [place] [address] * (ABNORMAL) Comprehensive metabolic panel (12/03/2024 10:16 AM CDT) Sodium 137 135 - 145 mmol/L Comment:Testing performed by : [address], [place]., [address] Potassium, pl 4.7 3.3 - 4.9 mmol/L [facility] Comment:Testing performed by : [address], [place]., [address] Chloride 102 97 - 110 mmol/L HANNAH Comment:Testing performed by : [address], [place]., [address] CO2 24 22 - 32 mmol/L [facility] Comment:Testing performed by : [address], [place]., [address] Anion gap 11 2 - 15 mmol/L [facility] Comment:Testing performed by : [address], [place]., [address] BUN 25 6 - 25 mg/dL [facility] Comment:Testing performed by : [address], [place]., [address] Creatinine 1.30(H) 0.60 - 1.10 mg/dL [facility] Comment:Testing performed by : [address], [place]., [address] Glucose 158 70 - 199 mg/dL [facility] Comment: Interpretive Data Fasting [...] was last revised 2022. Testing performed by: [address] [address] Calcium 9.1 8.5 - 10.3 mg/dL HANNAH Comment:Testing performed by : [address] [address] Bilirubin, total 0.2 0.1 - 1.2 mg/dL HANNAH Comment:Testing performed by : [address], [place]., [address] Protein, pl 6.7 6.5 - 8.5 g/dL HANNAH LEA Comment:Testing performed by : [facility], [address] [place] [address]., [address] Albumin 3.4(L) 3.5 - 5.0 g/dL HANNAH LEA Comment:Testing performed by : [facility], [address] [place] [address]., [address] Alk phos 120 40 - 130 Units/L HANNAH Comment:Testing performed by : [facility], [address] [place] [address]., [address] ALT 13 7 - 45 Units/L HANNAH Comment:Testing performed by : [address] [address] AST 14 10 - 45 Units/L HANNAH Comment:Testing performed by : [address] [address] Blood 12/03/2024 10:1 6 AM CDT 12/03/2024 10:21 AM CDT us Jaimie Romero MD LAB BLOOD ORDERABLES Final Result HANNAH [address] [facility] Department [place] [address] from Last 3 Months Insurance MEDICARE [facility] MEDICARE [facility] [employer] MEDICARE [facility] [employer] Advance Directives For more information, please contact: [phone] Documents on File Type Date Recorded Patient Announcer Expl anation ADVANCE DIRECTIVE 12/13/2024 11:42 AM Grazynapeter trotter Will ADVANCE DIRECTIVE 12/13/2024 11:42 AM Power of Climate Change Analyst-Medical ADVANCE DIRECTIVE 07/26/2024 8:59 AM POLS T [...] vasopressorsNo internal / external pacemaker Care Teams Bulldozer Operator Relationship Specialty Start Date End Date Irving Montes MD PCP - General Family Medicine 04/27/18
--- OUTSIDE RECORDS SUMMARY | 2025-02-12 11:35 | XMS_ITS | Encounter Summary ---
Author Organization [facility] Address [address] [place] [address] Care Team Providers Care Recruiting Consultant Name Role Phone Unavailable Primary Care Provider Unavailabl e Encounter Details Date Type Department Care Team (Late st Contact Info) Description 08/22/2023 Lab Requisition [facility] - DermPath Lab [address] [place] [id number] [place] [address] [place] [address] Social History Tobacco Use Types Packs/Day Years Used Date Smoking Tobacco: Never Assessed Comments Unknown Sex and Gender Information Value Date Recorded Sex Assigned at Not on file Legal Sex Female 7:04 AM PRINCIPAL ACCOUNTS CLERK Gender Identity Not on file Sexual Orientation Not on file documented as of this encounter Plan of Treatment Not on file documented as of this encounter Procedures Procedure Name Priority Date/Time Associated Diagnosis Comments DERMATOPATHOLOGY Routine 08/21/2023 3:33 AM PRINCIPAL ACCOUNTS CLERK documented in this encounter Results * DERMATOPATHOLOGY (08/21/2023 3:33 AM PRINCIPAL ACCOUNTS CLERK) Case Report Dermatopathology Report Case: [id number] Authorizing Provider: Jamil Salas MD Collected: 08/21/2023 03:33 AM Ordering Location: [facility] Derm[facility] Lab Received: 08/25/2023 07:09 AM Pathologist: Charlene Yang MD Specimen: Skin, nasal ltip 3 12:08 PM PRINCIPAL ACCOUNTS CLERK DERMATOPATHOLOGY LABORATORY Final Diagnosis Specimen A. SKIN, nasal tip: DERMAL SCAR RESIDUAL BASAL CELL CARCINOMA NOT IDENTIFIED (L90.5) 3 12:08 PM PRINCIPAL ACCOUNTS CLERK DERMATOPATHOLOGY LABORATORY at 1208 PRINCIPAL ACCOUNTS CLERK Clinical History BCC Nodule. Prior Biopsy [id number] 3 12:[address] [facility] DERMATOPATHOLOGY LABORATORY Gross Description Specimen A: Received is one formalin filled container labeled with the patient's name and designated nasal tip. The specimen consists of a curettage and desiccation biopsy measuring 9x9x2 mm. Jar 0. 3 12:[address] [facility] DERMATOPATHOLOGY LABORATORY Microscopic Description Specimen A. SKIN, nasal tip: There are fibroblasts and collagen bundles oriented parallel to the skin surface. There are elongated blood vessels, some of which are oriented perpendicular to the skin surface. Abundant hemosiderin is also observed at the base of the fibrosis. No basal cell carcinoma is identified. 3 12:[address] [facility] DERMATOPATHOLOGY LABORATORY Disclaimer An external and internal positive and negative controls are appropriate for the histochemical, immunohistochemical and immunofluorescence stain(s) in this case (if any), except where stated explicitly. The performance characteristics of the stain(s) cited in this report were developed and its performance characteristic determined by the Dermatopathology Laboratory at [facility], directed by Dr. Anil Willett. These tests need not be, and therefore are not, approved by the [place] Food and Drug Administration. The tests are used for clinical purposes. Billing Codes Specimen Charges Stain Charges 44438 1 3 12:[address] [facility] DERMATOPATHOLOGY LABORATORY Embedded Images 3 12:[address] [facility] DERMATOPATHOLOGY LABORATORY Pathology/Cytolo gy TISSUE SPECIMEN FROM SKIN / Unknown 08/21/2023 3:33 AM PRINCIPAL ACCOUNTS CLERK 08/25/2023 7:[address] [facility] Jamil Salas MD LAB - PATHOLOGY/CYTOLOGY ORDERAB LES Final Result DERMATOPATHOLOGY LABORATORY [facility] - Department of Dermatology [address] [phone] documented in this encounter Visit Diagnoses Not on filedocumented in this encounter
[2025-02-12 12:32] LABS: Add Urine Microscopic? YES; Appearance Urine Cloudy (Clear); Bacteria Urine 4+ /hpf; Bilirubin Urine Negative (Negative); Blood Urine Trace (Negative); Color Urine Yellow (Yellow); Glucose Urine UA Negative (Negative); Ketones Urine Negative (Negative); Leukocyte Esterase Ur 3+ LEU/UL (Negative); Nitrate Urine Negative (Negative); Non Pathogenic Casts 0-2; Protein Urine Negative (Negative); RBC Urine 0-2 /hpf (0-2); Specific Grav Ur 1.007 (1.001-1.035); Squamous Epithelial Cell Urine None Seen /hpf (Few); Urobilinogen Urine 0.2 mg/dL (<2.0); WBC Urine >100 /hpf (0-3); pH Urine 6.5 (5.0-9.0)
== END 2025-02-12 11:31 | disposition home or self-care (01) ==
LOC: ANHLAB 11:32
PROVIDERS: PCP Family Medicine; Visit Provider Family Medicine
DX: N39.0 Urinary tract infection, site not specified (principal); R32 Unspecified urinary incontinence
CPT/HCPCS: 81001; 87086

== ENCOUNTER 2025-07-13 18:08 | Inpatient (IN) | payer MEDICARE, BC, SELFPAY ==
--- OUTSIDE RECORDS SUMMARY | 2008-12-20 18:00 | XMS_ITS | Continuity of Care Document ---
Author Organization [facility] Address [address] [place] [address] [place] [address] Phone Care Team Providers Care Site Leasing Agent Name Role Phone [facility] Unavailable Unavail able Tyron, Margarita Unavailable Unavailable Procedures Procedure Date Frames Deluxe Miscellaneous Vision Service - Supplies [employer] - Medical BF Polycarb Sphcyl [place] To +/-4d .12-2d Tint Photochromatic, Polycarb 8 [employer] - Medical Eye Exam & Treatment Advance Directives Directive Yes / No Effective Date File Name No Information Encounters Encounter Description Practice Location Reason(s) For Visit Diagnoses Date Provider Providers Copied on Encounter [facility], [address] [place] [address] [address], [place], [place], [id number], tel:[phone] [facility] No Information 9 [facility] . [address] [place] [address], [id number], [place]. tel:[phone] Consulting Provider: Margarita Ackerman, 12 [place], [address]. tel:[phone] [facility], [address] [place], [place] [address], [place], [place], [id number], tel:[phone] [facility] No Information 8 [facility] . [address] [place] [address], [id number], [place]. tel:[phone] Consulting Provider: Patti Jensen, 12 [facility], [place], [address]. tel:[phone] [facility], [address], [place], [place], [id number], [place] tel:[phone] [facility] No Information 0200 [address] Philomena Kim. [address] [facility], [address], [place], [place], [id number], [place]. tel:[phone] Family History Family Member Type Diagnosis Age At Onset No Information Payers Payer name Insurance type Covered constitution party ID Authoriza tion(s) No Information Social History Type Description Quantity Date Captured Comments Sex Female Smoking Status No Information Chief Complaint And Reason For Visit No Information Reason For Referral Reason For Referral No Information History Of Present Illness Encounter Date Complaint History Of Prese nt Illness No Information Functional Status Date Functional Assessmen t No Information Instructions Date Instruction Additional Infor mation No Information Assessments Type Assessment Date No Information Patient Care Teams Name Effective Dates (start - stop) Status Members No Information
--- OUTSIDE RECORDS SUMMARY | 2008-12-20 18:00 | XMS_ITS | Continuity of Care Document ---
Author Organization [facility] Address [address] [place] [address] [place] [address] Phone Care Team Providers Care Graphics Edit Technician Name Role Phone [facility] Unavailable Unavail able Tyron, Margarita Unavailable Unavailable Procedures Procedure Date Frames Deluxe Miscellaneous Vision Service - Supplies [employer] - Medical BF Polycarb Sphcyl [place] To +/-4d .12-2d Tint Photochromatic, Polycarb 8 [employer] - Medical Eye Exam & Treatment Advance Directives Directive Yes / No Effective Date File Name No Information Encounters Encounter Description Practice Location Reason(s) For Visit Diagnoses Date Provider Providers Copied on Encounter [facility], [address] [place] [address] 150, [place], [place], [id number], tel:[phone] [facility] No Information 9 [facility] . [address] [place] [address], [id number], [place]. tel:[phone] Consulting Provider: Margarita Ackerman, 12 [place], [address]. tel:[phone] [facility], [address] [place], [place] [address], [place], [place], [id number], tel:[phone] [facility] No Information 8 [facility] . [address] [place] [address], [id number], [place]. tel:[phone] Consulting Provider: Patti Jensen, 12 [facility], [place], [address]. tel:[phone] [facility], [address], [place], [place], [id number], [place] tel:[phone] [facility] No Information 0200 7 Philomena Kim. [address] [facility], [address], [place], [place], [id number], [place]. tel:[phone] Family History Family Member Type Diagnosis Age At Onset No Information Payers Payer name Insurance type Covered libertarian ID Authoriza tion(s) No Information Social History [...]
--- NOTE | ~2025-07-13 | XR_ITS ---
EXAMINATION: XR chest 1V portable DATE: 07/13/2025 23:09 INDICATION: Altered mental status TECHNIQUE: frontal view of the chest was obtained. COMPARISON: Chest radiograph dated 04/23/2025 FINDINGS: Mild streaky bibasilar atelectasis. No other airspace opacities, pulmonary edema, pleural effusion or pneumothorax. Heart size is normal. Moderate bilateral glenohumeral osteoarthritis. IMPRESSION: 1. Mild bibasilar atelectasis. Reviewed, dictated and finalized at location A. PUMPER
--- NOTE | ~2025-07-13 | CT_ITS ---
EXAMINATION: CT brain wo con DATE: 07/14/2025 00:33 INDICATION: Altered mental status. TECHNIQUE: Computed tomography (CT) of the head was performed without intravenous contrast. The mA was adjusted according to patient size. Iterative reconstruction technique was employed. The dose-length product was 681.00 mGy-cm. COMPARISON: Head CT 04/23/2025 FINDINGS: There are scattered areas of low attenuation in the cerebral white matter. There is no intracranial hemorrhage, acute infarction, or abnormal intracranial mass lesion. The ventricles are normal in size. There is mild mucosal thickening in the paranasal sinuses. There are likely changes of ocular lens replacement surgeries. The mastoid air cells are normal. IMPRESSION: 1. Stable moderate nonspecific cerebral white matter disease, which likely represents chronic small vessel ischemic disease. Reviewed, dictated and finalized at location E. PING/RECEIVING CLERK IMPRESSION: 1. Stable moderate nonspecific cerebral white matter disease, which likely repr esents chronic small vessel ischemic disease.
--- OUTSIDE RECORDS SUMMARY | 2025-07-13 06:15 | XMS_ITS ---
Author Organization [facility] Address [address] [place] [id number] Care Team Providers Care Attendance Clerk Name Role Phone DR. ROSEY CRANE Primary Care Provider [phone] Ariella Wilson Unavailable [phone] Allergies Allergen (clinical drug ingredient) Drug/Non Drug Allergy documented on EMR Reaction Allergy Type Onset Date Status ciprofloxacin Ciprofloxacin Unknown Drug Allergy Active clindamycin Clindamycin Unknown Drug Allergy Act julio codeine Codeine Unknown Drug Allergy Active doxycycline Doxycycline Unknown Drug Allergy Act julio niacin Niacin Unknown Drug Allergy Active Penicillin Unknown Drug Allergy Active REASON FOR VISIT Shae/Criselda, richi f/u Medications Medication SIG (Take, Route, Frequency, Duration) Notes Start Date End Date Status ALPRAZolam 1 MG Tablet 1 tablet Orally 4 times a day 06/29/2025 Active traMADol HCl 50 MG Tablet 1 tablet as ne eded Orally every 8 hours 06/22/2025 Active Spironolactone 25 MG Tablet 1 tablet Ora lly Once a day Active Ventolin HFA 108 (90 Base) MCG/ACT Aerosol Solution 2 puffs Inhalation every 4 hrs As needed Active Thera-M - Tablet 1 tablet Orally daily Active Skin Prep Wipes - Miscellaneous as directed Active Levothyroxine Sodium 75 MCG Tablet 1 tablet in the morning on an empty stomach Orally Once a day Active Irbesartan 150 MG Tablet 1 tablet Orally Once a day Active Ondansetron 4 MG Tablet Disintegrating 1 tablet on the tongue and allow to dissolve Orally Once a day Active Montelukast Sodium 10 MG Tablet 1 tablet Orally Once a day Active Escitalopram Oxalate 10 MG Tablet 1 tablet Orally Once a day Active Econazole Nitrate 1 % Cream 1 applicatio n Externally Twice a day Active Esomeprazole Magnesium 40 MG Capsule Delayed Release 1 capsule 1/2 to 1 hour before morning meal Orally Once a day Active Ipratropium-Albuterol 0.5-2.5 (3) MG/3ML Solution 3 mL as needed Inhalation every 8 hours Active hydrALAZINE HCl 10 MG Tablet 1 tablet Orally every 8 hours As needed Active Clopidogrel Bisulfate 75 MG Tablet 1 tablet Orally Once a day Active Calcitriol 0.25 MCG Capsule 1 capsule Or ally Three times a Week Active Atorvastatin Calcium 20 MG Tablet 1 tablet Orally Once a day Active Bumetanide 1 MG Tablet 1 tablet Orally O nce a day Active Budesonide 0.5 MG/2ML Suspension 1 mL Inhalation Twice a day As needed Active amLODIPine Besylate 5 MG Tablet 1 tablet Orally Once a day Active Acetaminophen 500 MG Tablet 1 tablet as needed Orally every 6 hrs Active Nystatin - Powder as directed Active Social History Tobacco Use: Social History Observation Description Date Details (start date - stop date) Former Smoker NA - NA Social History Tobacco Use: Social Info Question Answer Notes Tobacco Control (Standard) Tobacco use: Former smoker Problems Problem Type SNOMED Code ICD Code Onset Dates Problem Status W/U Status Risk Notes Problem Leukocytosis (541881825) Elevated white blood cell count, unspecified (D72.829) Active confirmed Vital Signs Temperature 98.7 degrees Fahrenheit 07/13/20 25 Blood pressure systolic 121 mm Hg 07/13/20 25 Blood pressure diastolic 70 mm Hg 025 Heart Rate 74 /min 07/13/2025 Respiratory Rate 14 /min 07/13/2025 Oximetry 98 % 07/13/2025 Encounters Encounter Location Date Provider Diagnosis [facility], [facility] [address] [place] [address] 07/13/2025 Ariella Wilson Candidiasis, unspecified B37.9 ; Left leg cellulitis L03.116 ; Chronic obstructive pulmonary disease, unspecified J44.9 ; Hypothyroidism, unspecified E03.9 and Elevated white blood cell count, unspecified D72.829 Assessments Encounter Date Diagnosis (ICD Code) Assessment Notes Treatment Notes Treatment Clinical Notes Section Notes 07/13/2025 Candidiasis, unspecified (ICD-10 - B37.9) Vaginal candidiasis resolved 07/13/2025 Left leg cellulitis (ICD-10 - L03.116) SWM to continue to monitor and treat.[facility] nurse practitioner states leg wound healed. Continue current medications and treatments. Continue following with wound care. 07/13/2025 Chronic obstructive pulmonary disease, unspecified (ICD-10 - J44.9) Continue current medication and treatment No sign and symptom of respiratory distress. 07/13/2025 Hypothyroidism, unspecified (ICD-10 - E03.9) TSH and free T4 to be drawn. 07/13/2025 Elevated white blood cell count, unspecified (ICD-10 - D72.829) Urinalysis with culture and sensitivity to be collected.Previo us urinalysis indicated contamination.Co ntinue to encourage increased fluid intake. 07/13/2025 Other Continue current medication and treatment. Follow up in 1 week Educated on plan of care. HIPAA policy reviewed. Plan Of Treatment Treatment Notes Assessment Notes Candidiasis, unspecified Vaginal candidi asis resolved Left leg cellulitis SWM to continue to monitor and treat.[facility] nurse practitioner states leg wound healed. Continue current medications and treatments. Continue following with wound care. Chronic obstructive pulmonar y disease, unspecified Continue current medication and treatment No sign and symptom of respiratory distress. Hypothyroidism, unspecified TSH and free T4 to be drawn. Elevated white blood cell co unt, unspecified Urinalysis with culture and sensitivity to be collected.Previous urinalysis indicated contamination.Continue to encourage increased fluid intake. Other Continue current medication and treatment. Follow up in 1 week Educated on plan of care. HIPAA policy reviewed. Next Appt Details Follow Up: 1 Week, Reason: Provider Name:Ariella Flores rt, 07/15/2025 11:30:00 AM, [address], [place], [address], Provider Name:Ariella Flores rt, 07/18/2025 06:45:00 AM, [address], [place], [address], History and Physical Notes * HPI (History of Present Illness) Category Sub-Category Detail Notes Category Not es Transition of Care Patient p resents today for a skilled visit. Patient sitting in her wheelchair in her room upon nurse practitioner arrival. SWM to look at patient's left leg today. [facility] nurse practitioner; Belia states patient's wound has healed; however, white blood cells continue to be elevated. Nurse practitioner to order follow-up urinalysis with culture and sensitivity due to the previous urinalysis showing contamination. Examination Category Sub-Category Detail Notes Category Not es General Examination General appearance: alert, p leasant, well-nourished and in no acute distress Head: normocephalic, atrau matic Ears: hard of hearing Nose: nares patent Heart: regular rate and rhy thm without murmurs, gallops, clicks or rubs, no jugular venous distention Lungs: clear to auscultatio n bilaterally, with good air movement and no rales, rhonchi or wheezes Abdomen: soft with good bowel sounds, nontender, and no masses or hepatosplenomegaly Neurologic: alert, cooperative w ith exam, gait abnormal, abnormal upper and lower extremity motor strength and function Skin: chronic wound left l eg Extremities: normal extremity wit h no clubbing, cyanosis or edema Musculoskeletal: no swelling, redness , warmth or tender joints Psych: alert and oriented x 3, cooperative with exam, maintains good eye contact, normal affect / mood Female genitourinary: Progress Notes * Lucille SEVILLA MDOB: 6 (89 yo F)Acc No.[id number]:07/13/2025 Patient: Lucille Gramajo Provider: Soila Wilson NP :[id number] A ge:89 Y S ex:Female Date:07/13/2025 Address:[address] [place] [address] Pcp:DR. ROSEY CRANE Subjective: * Chief Complaints: * E [facility], skilled f/u * HPI: T ransition of Care: Patient presents today for a skilled visit. Patient sitting in her wheelchair in her room upon nurse practitioner arrival. [facility] to look at patient's left leg today. [facility] nurse practitioner; Belia states patient's wound has healed; however, white blood cells continue to be elevated. Nurse practitioner to order follow-up urinalysis with culture and sensitivity due to the previous urinalysis showing contamination. * ROS: G eneral / Constitutional: Patient denies f atigue, headache, lightheadedness, sleep disturbance, weight gain. P atient complains of w eakness. E NT: Patient denies e ar pain, hoarseness, nasal congestion, pain, sinus pain, sore throat. R espiratory: Patient denies c hest pain, cough, shortness of breath, sputum production. C ardiovascular: Patient denies c hest pain, chest pain with exertion, irregular heartbeat, palpitations, shortness of breath. G astrointestinal: Patient denies a bdominal pain, constipation, diarrhea, rectal bleeding, vomiting, weight loss, blood in stool. G enitourinary: Patient denies b lood in the urine, difficulty urinating, frequent urination, painful urination. M usculoskeletal: Patient denies a rthritis / arthralgia, back pain, back problems, painful joints. C omments w heelchair use. P eripheral Vascular: Patient denies c old extremities, decreased sensation in extremities, painful extremities. S kin: Patient denies d iscoloration, dry skin, rash, ulcerations, itching. P atient complains of c hronic wound, left leg with cellulitis.. N eurologic: Patient denies c onfusion, dizziness, tingling / numbness, tremor. P atient complains of g ait abnormality, loss of strength. P sychiatric: Patient denies a nxiety, depressed mood, loss of appetite, mood disorder, suicidal thoughts. * Medical History: Other intervertebral disc degeneration, lumbar region with discogenic back pain and lower extremity pain Body mass index [BMI] 36.0-36.9, adult Chronic obstructive pulmonary disease, unspecified Hypertensive heart and chronic kidney disease with heart failure and stage 1 through stage 4 chronic kidney disease, or unspecified chronic kidney disease Chronic diastolic (congestive) heart failure Chronic kidney disease, stage IV (severe) Other cirrhosis of liver Unspecified protein-calorie malnutrition Emphysema, unspecified Hypothyroidism, unspecified Mixed hyperlipidemia Major depressive disorder, recurrent, in remission, unspecified Unspecified asthma, uncomplicated Morbid (severe) obesity due to excess calories Irritable bowel syndrome, unspecified Peripheral vascular disease Generalized anxiety disorder Occlusion and stenosis of unspecified carotid artery Anemia in other chronic diseases classified elsewhere Obstructive sleep apnea (adult) (pediatric) Gastro-esophageal reflux disease without esophagitis Polyosteoarthritis, unspecified Age-related osteoporosis without current pathological fracture Medical History Verified * Surgical History: BLADDER SURGERY TOTAL HIP ARTHROPLASTY Surgical History verified. * Hospitalization/Major Diagno stic Procedure: No Hospitalization Documented. Hospitalization Verified. * Family History: F amily History Verified.. NO KNOWN PROBLEMS. * Social History: T obacco Use: T obacco Control (Standard) T obacco use: F ormer smoker. Social History Verified. * Medications: T akingNystatin - Powder as directed Acetaminophen 500 MG Tablet 1 tablet as needed Orally every 6 hrs amLODIPine Besylate 5 MG Tablet 1 tablet Orally Once a day Atorvastatin Calcium 20 MG Tablet 1 tablet Orally Once a day Budesonide 0.5 MG/2ML Suspension 1 mL Inhalation Twice a day As neededBumetanide 1 MG Tablet 1 tablet Orally Once a day Calcitriol 0.25 MCG Capsule 1 capsule Orally Three times a Week Clopidogrel Bisulfate 75 MG Tablet 1 tablet Orally Once a day Econazole Nitrate 1 % Cream 1 application Externally Twice a day Escitalopram Oxalate 10 MG Tablet 1 tablet Orally Once a day Esomeprazole Magnesium 40 MG Capsule Delayed Release 1 capsule 1/2 to 1 hour before morning meal Orally Once a day hydrALAZINE HCl 10 MG Tablet 1 tablet Orally every 8 hours As neededIpratropium-Albuterol 0.5-2.5 (3) MG/3ML Solution 3 mL as needed Inhalation every 8 hours Irbesartan 150 MG Tablet 1 tablet Orally Once a day Levothyroxine Sodium 75 MCG Tablet 1 tablet in the morning on an empty stomach Orally Once a day Montelukast Sodium 10 MG Tablet 1 tablet Orally Once a day Ondansetron 4 MG Tablet Disintegrating 1 tablet on the tongue and allow to dissolve Orally Once a day Skin Prep Wipes - Miscellaneous as directed Spironolactone 25 MG Tablet 1 tablet Orally Once a day Thera-M - Tablet 1 tablet Orally daily Ventolin HFA 108 (90 Base) MCG/ACT Aerosol Solution 2 puffs Inhalation every 4 hrs As neededtraMADol HCl 50 MG Tablet 1 tablet as needed Orally every 8 hours ALPRAZolam 1 MG Tablet 1 tablet Orally 4 times a day Medication List reviewed and reconciled with the patientTaking Nystatin - Powder as directed Taking Acetaminophen 500 MG Tablet 1 tablet as needed Orally every 6 hrs Taking amLODIPine Besylate 5 MG Tablet 1 tablet Orally Once a day Taking Atorvastatin Calcium 20 MG Tablet 1 tablet Orally Once a day Taking Budesonide 0.5 MG/2ML Suspension 1 mL Inhalation Twice a day As neededTaking Bumetanide 1 MG Tablet 1 tablet Orally Once a day Taking Calcitriol 0.25 MCG Capsule 1 capsule Orally Three times a Week Taking Clopidogrel Bisulfate 75 MG Tablet 1 tablet Orally Once a day Taking Econazole Nitrate 1 % Cream 1 application Externally Twice a day Taking Escitalopram Oxalate 10 MG Tablet 1 tablet Orally Once a day Taking Esomeprazole Magnesium 40 MG Capsule Delayed Release 1 capsule 1/2 to 1 hour before morning meal Orally Once a day Taking hydrALAZINE HCl 10 MG Tablet 1 tablet Orally every 8 hours As neededTaking Ipratropium-Albuterol 0.5-2.5 (3) MG/3ML Solution 3 mL as needed Inhalation every 8 hours Taking Irbesartan 150 MG Tablet 1 tablet Orally Once a day Taking Levothyroxine Sodium 75 MCG Tablet 1 tablet in the morning on an empty stomach Orally Once a day Taking Montelukast Sodium 10 MG Tablet 1 tablet Orally Once a day Taking Ondansetron 4 MG Tablet Disintegrating 1 tablet on the tongue and allow to dissolve Orally Once a day Taking Skin Prep Wipes - Miscellaneous as directed Taking Spironolactone 25 MG Tablet 1 tablet Orally Once a day Taking Thera-M - Tablet 1 tablet Orally daily Taking Ventolin HFA 108 (90 Base) MCG/ACT Aerosol Solution 2 puffs Inhalation every 4 hrs As neededTaking traMADol HCl 50 MG Tablet 1 tablet as needed Orally every 8 hours Taking ALPRAZolam 1 MG Tablet 1 tablet Orally 4 times a day Medication List reviewed and reconciled with the patient * Allergies: C iprofloxacinClindamycinCodeineDoxycyclineNiacinPenicillinyesAllergies Verified. Objective: * Vitals: B P: 121/70 mm Hg, HR: 74 /min, RR: 14 /min, Temp: 98.7 F, Oxygen sat %: 98 %. * Examination: G eneral Examination: General appearance: a lert, pleasant, well-nourished and in no acute distress. Head: n ormocephalic, atraumatic. Ears: h ahmet of hearing. Nose: n aline patent. Skin: c hronic wound left leg. Heart: r egular rate and rhythm without murmurs, gallops, clicks or rubs, no jugular venous distention. Lungs: c lear to auscultation bilaterally, with good air movement and no rales, rhonchi or wheezes. Abdomen: s oft with good bowel sounds, nontender, and no masses or hepatosplenomegaly. Musculoskeletal: n o swelling, redness, warmth or tender joints. Extremities: n ormal extremity with no clubbing, cyanosis or edema. Neurologic: a lert, cooperative with exam, gait abnormal, abnormal upper and lower extremity motor strength and function. Psych: a lert and oriented x 3, cooperative with exam, maintains good eye contact, normal affect / mood. Assessment: * Assessment: 1. C andidiasis, unspecified - B37.9 (Primary) 2 . L eft leg cellulitis - L03.116 3 . C hronic obstructive pulmonary disease, unspecified - J44.9 ? 4 . H ypothyroidism, unspecified - E03.9 5 . E levated white blood cell count, unspecified - D72.829 Plan: * Treatment: 2. L eft leg cellulitis Notes: SW to continue to monitor and treat.[facility] nurse practitioner states leg wound healed. Continue current medications and treatments. Continue following with wound care. 3. C hronic obstructive pulmonary disease, unspecified Notes: Continue current medication and treatment No sign and symptom of respiratory distress. 4. H ypothyroidism, unspecified Notes: TSH and free T4 to be drawn. 5. E levated white blood cell count, unspecified Notes: Urinalysis with culture and sensitivity to be collected.Previous urinalysis indicated contamination.Continue to encourage increased fluid intake. 6. O thers Notes:Continue current medication and treatment. Follow up in 1 week Educated on plan of care. HIPAA policy reviewed. * Preventive Medicine: Counseling: B P Management: P RE-HYPERTENSIVE FOLLOW-UP PLAN: _ __, M ODERATION OF ETOH CONSUMPTION RECOMMENDATION: _ __. Screenings: F all risk screening F all Risk Assessment: N o falls in the past year ____, S creening: N o falls in the past year ___, P suha of Care: _ ___. * Follow Up: 1 Week * Electronic signature of Kylie Wilson on 07/14/2025 at 03:32 PM [employer] SPECIALIST Sign off status: Pending * Provider: Soila Wilson NP Date: 2024 Generated for Divya steel/Carlita/Jose Raul on: 09/13/2024 03:32 PM [employer] SPECIALIST
[2025-07-13 18:19] VITALS: BP 171/59; PULSE 99; RESP 20; TEMP 36.6; O2SAT 99
[2025-07-13 20:42] VITALS: BP 152/108; PULSE 80; RESP 16; TEMP 36.5; O2SAT 100
--- NOTE | 2025-07-13 20:57 | PC.NURSE ---
Pt. arrived to room with pants soaked in urine. Pt. had peed through her depend while in [place]. Dirty clothes and dirty depend removed. Pt. given a bed bath with soap and water. Gown and clean depend applied.
--- NOTE | 2025-07-13 22:31 | PC.NURSE ---
Dr. Sow at bedside assessing pt.
[2025-07-13 22:49] VITALS: BP 156/67; PULSE 96; RESP 14; O2SAT 100
--- NOTE | 2025-07-13 23:11 | ED.GENADULT ---
HPI - General Adult General Chief complaint: Extremity Problem,Nontraumatic Stated complaint: LLE infection Time Seen by Provider: 07/13/25 22:05 History of Present Illness HPI narrative: This is an 89-year-old female presenting for recurrent cellulitis of her left lower extremity. Patient is a poor historian. She cannot provide me an accurate or reliable history on why she is here, where she lives, or how I can hlep her today. I spoke with her son-in-law who said that she is developing recurrent cellulitis of the left lower leg in the fpc is requesting treatment and evaluation by an ID specialist as this continues to be an issue. He says that her confusion is new over the last several days. Related Data Home Medications ?Medication ?Instructions ?Recorded ?Confirmed ?Last Taken ?Type multivit,tx with iron 27 1 tablet PO DAILY 05/27/24 04/23/25 Unknown History ey-scyrlpn-cegqz acid 0.4 mg-minerals tablet (Thera-M) acetaminophen 500 mg tablet 500 mg PO Q6H PRN fever or pain 11/23/24 04/23/25 Unknown History Allergies Allergy/AdvReac Type Severity Reaction Status Date / Time codeine Allergy Unknown Unknown Verified 07/13/25 20:52 niacin Allergy Unknown Unknown Verified 07/13/25 20:52 Penicillins Allergy Unknown Unknown Verified 07/13/25 20:52 ciprofloxacin AdvReac Mild Nausea Verified 07/13/25 20:52 [facility] Past Medical History Medical History (Updated 07/14/25 @ 01:06 by El Sow MD) HTN (hypertension) Combined variable immunodeficiency Hiatal hernia Mixed hyperlipidemia Rectal abscess September 2024 Stasis dermatitis of both legs Left greater than right Carotid stenosis, left COPD with asthma Cellulitis of leg, left Chronic Anemia in chronic kidney disease Umbilical hernia Basal cell carcinoma of nose Skin cancer Lesion of skin of nose Nasal polyp Morbid (severe) obesity due to excess calories Heart failure with preserved ejection fraction Urinary incontinence History of DVT (deep vein thrombosis) Obstructive sleep apnea Iron deficiency anemia Leg weakness, bilateral Lumbar spondylosis Memory loss Mass of right thigh Insomnia Chronic kidney disease, stage 4 (severe) Ataxia Diffuse nodular cirrhosis of liver Ventral hernia without obstruction or gangrene Vitamin D deficiency Hypothyroidism Screening mammogram for high-risk patient Anxiety Depression DDD (degenerative disc disease) Osteoporosis GERD (gastroesophageal reflux disease) Inguinal hernia IBS (irritable bowel syndrome) Gastrointestinal ulcer Emphysema of lung Asthma TIA (transient ischemic attack) Low vitamin B12 level Surgical History Surgical History Hx of oral surgery H/O arthroscopic knee surgery Hx of bilateral hip replacements History of bladder surgery bladder tie-up Hx of tonsillectomy Hx of cataract surgery Family History Family History (Updated 04/24/25 @ 04:19 by Robyn Yang DO) Mother Family history of suicide Patient's mother is Father Patient's father is , Onset Age: 76 Family history of malignant neoplasm Other Family history of cardiovascular disease Family history of coronary artery disease Hypertension Social History Social History (Updated 04/24/25 @ 04:22 by Robyn Yang DO) Social History: The patient is she has lived in an assisted living facility for about 6 years. She recently moved to [facility] in October 2024. She had 1 son who has . She used to work for the [employer] and then she volunteered 17 years at [employer] for [employer]. She quit smoking at age 60. She smoked up to 2 packs per day at 1 point. Code status: DNR/DNI Healthcare power of estate attorney: Joan South (granddaughter) Smoking packs per day: 2 Smoking cigarettes per day: 40.0 Years smoked: 40 Smoking pack-years: 80.00 Tobacco type: cigarettes Second hand tobacco smoke exposure: No Smoking end date: 04/23/25 Alcohol intake: former Drinks per week: 1 Substance use: former Substance use type: marijuana Last use: Pt has stopped the gummies. 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 Gender identity (if verbalized by the patient): Female Sexual Orientation (if Verbalized by the Patient): Straight or Heterosexual Spiritual care concerns: No Exam Narrative: APPEARANCE: No apparent distress. Patient smells of urine. A&O x1-2 Head: atraumatic. EYES: EOMI, NOSE: Atraumatic NECK: Trachea midline RESPIRATORY: No increased rate of breathing clear to auscultation CARDIOVASCULAR: RRR, ABDOMINAL: Non-distended soft nontender MUSCULOSKELETAl: No obvious deformities NEURO: Alert. Moving 4/4 extremities SKIN:: Left lower leg is erythematous, shiny, warm to touch with superficial skin sloughing, yeast in the groin PSYCHIATRIC: Normal affect Course Vital Signs Vital signs: Vital Signs Temperature 97.8 F 07/13/25 18:19 Pulse Rate 99 07/13/25 18:19 Respiratory Rate 20 07/13/25 18:19 Blood Pressure 171/59 H 07/13/25 18:19 Pulse Oximetry 99 07/13/25 18:19 Oxygen Delivery Room Air 07/13/25 18:19 Temperature 97.7 F 07/13/25 20:42 Pulse Rate 99 07/14/25 00:25 Respiratory Rate 17 07/14/25 00:25 Blood Pressure 176/76 H 07/14/25 00:25 Pulse Oximetry 99 07/14/25 00:25 Oxygen Delivery Room Air 07/13/25 20:42 Medical Decision Making MDM Narrative Medical decision making narrative: -Course: 89-year-old female presenting with effusion and left lower extremity erythema and redness. patient started on vancomycin to cover cellulitis. Additionally her urine is indicative of infection. Started on ceftriaxone. Patient given 1 L bolus and started on 150 cc LR. White count elevated at 16.9. Lactic normal. Patient will be admitted the hospital for further management of her cellulitis and UTI. -DDX includes but is not limited to: Cellulitis, sepsis, dehydration, uti, dementia Vital Signs Vital Signs: Vital Signs Temperature 97.8 F 07/13/25 18:19 Pulse Rate 99 07/13/25 18:19 Respiratory Rate 20 07/13/25 18:19 Blood Pressure 171/59 H 07/13/25 18:19 Pulse Oximetry 99 07/13/25 18:19 Oxygen Delivery Room Air 07/13/25 18:19 Temperature 97.7 F 07/13/25 20:42 Pulse Rate 99 07/14/25 00:25 Respiratory Rate 17 07/14/25 00:25 Blood Pressure 176/76 H 07/14/25 00:25 Pulse Oximetry 99 07/14/25 00:25 Oxygen Delivery Room Air 07/13/25 20:42 Lab Data 07/13/25 23:56 07/13/25 23:56 Labs: Lab Results 07/13/25 07/14/25 07/14/25 Range/Units 23:56 00:06 00:24 WBC 16.9 H (4.5-10.0) K/mm3 RBC 3.45 L (4.2-5.4) M/mm3 Hgb 9.2 L (12.0-15.0) g/dL Hct 29.6 L (37.0-47.0) % MCV 85.8 (80-100) fl MCH 26.7 (26-34) pg MCHC 31.1 L (32-36) g/dl RDW 15.2 H (11.5-14.5) % Plt Count 501 H (150-375) k/mm3 MPV 8.6 (7.4-10.4) fl Immature Gran % (Auto) 2.7 H (0-0.5) % Neut % (Auto) 75.6 H (45.5-73.1) % Lymph % (Auto) 8.1 L (18.3-44.2) % [place] % (Auto) 9.0 H (2.6-8.5) % Eos % (Auto) 4.1 (0-4.4) % Baso % (Auto) 0.5 (0.2-1.2) % Lymph # (Auto) 1.37 (0.9-3.2) K/mm3 [place] # (Auto) 1.5 H (0.1-0.6) K/mm3 Eos # (Auto) 0.7 H (0-0.3) K/mm3 Baso # (Auto) 0.1 (0.0-0.1) K/mm3 Abs Immat Gran (auto) 0.46 H (0.00-0.031) K/mm3 Absolute Neuts (auto) 12.7 H (1.3-6.7) K/mm3 Absolute Nucleated RBC 0.000 (0.0-0.012) K/mm3 Nucleated RBC % 0.0 (0.0-0.2) % Sodium 136 L (137-145) mmol/L Potassium 4.1 (3.4-5.0) mmol/L Chloride 101 (98-107) mmol/L Carbon Dioxide 25 (22-30) mmol/L Anion Gap 10 (4-12) mmol/L BUN 31 H (7-17) mg/dL Creatinine 1.35 H (0.7-1.0) mg/dL Estim Creat Clear Calc 30 ml/min Estimated GFR 37 L (59 - ) Glucose 131 H (65-110) mg/dL Lactic Acid 1.5 (0.7-2.0) mmol/L Calcium 9.2 (8.4-10.2) mg/dL Total Bilirubin 0.7 (0.2-1.3) mg/dL AST 23 (14-36) U/L ALT 15 (6-35) U/L Alkaline Phosphatase 96 (38-126) U/L Total Protein 7.5 (6.3-8.2) g/dL Albumin 3.8 (3.5-5.1) g/dL Lipase 50 (23-300) U/L Urine Color Yellow (Yellow) Urine Appearance Cloudy H (Clear) Urine pH 5.5 (5.0-9.0) Ur Specific [place] 1.012 (1.001-1.035) Urine Protein 1+ H (Negative) mg/dL Urine Glucose (UA) Negative (Negative) mg/dL Urine Ketones Negative (Negative) mg/dL Ur Blood (Man) Trace (Negative) Urine Nitrate Negative (Negative) Urine Bilirubin Negative (Negative) Urine Urobilinogen 0.2 (<2.0) mg/dL Leukocyte Esterase Rfl 3+ H (Negative) JANETH/UL Urine RBC 0-2 (0-2) /hpf Urine WBC >100 H (0-3) /hpf Ur Squamous Epith Cells None seen (Few) /hpf Urine Bacteria 4+ H /hpf Urine Casts 0-2 Influenza A (RT-PCR) Negative (Negative) Influenza B (RT-PCR) Negative (Negative) RSV (RT-PCR) Negative (Negative) SARS-CoV-2 RNA (RT-PCR) Negative (Negative) Discharge Plan Discharge Clinical Impression: Acute UTI, Encephalopathy Cellulitis, leg Qualifiers: Laterality: right Qualified Code(s): L03.115 - Cellulitis of right lower limb Patient Disposition: Still a Patient Condition: Stable Patient Language: Moldovan Prescriptions: No Action Thera-M 27-0.4 mg tablet 1 tablet PO DAILY acetaminophen 500 mg tablet 500 mg PO Q6H PRN (Reason: fever or pain) atorvastatin [Lipitor] 20 mg tablet 20 mg PO QHS Qty: 90 1RF hydralazine 10 mg tablet 10 mg PO TID PRN (Reason: hypertension) Qty: 60 0RF Rx Instructions: take if BP >160/100 econazole nitrate 1 % cream 1 applic topical BID Qty: 85 1RF Aquaphor Original 41 % ointment 1 applic topical DAILY PRN (Reason: dry skin) Qty: 396 2RF Asmanex HFA 100 mcg/actuation HFA aerosol inhaler 1 inh inhalation QHS Qty: 13 0RF escitalopram oxalate 10 mg tablet 10 mg PO QAM Qty: 90 1RF esomeprazole magnesium 40 mg capsule,delayed release(DR/EC) 40 mg PO DAILY Qty: 90 1RF montelukast 10 mg tablet 10 mg PO DAILY Qty: 90 1RF bumetanide 2 mg tablet 2 mg PO DAILY Qty: 90 1RF albuterol sulfate 90 mcg/actuation HFA aerosol inhaler 2 inh inhalation Q4H Qty: 8.5 3RF albuterol sulfate 2.5 mg /3 mL (0.083 %) solution for nebulization 2.5 mg INHALATION Q4H PRN (Reason: shortness of breath or wheezing) Qty: 90 2RF calcitriol 0.25 mcg capsule 0.25 mcg PO 3XW Qty: 90 3RF Rx Instructions: Take on Mondays, Wednesdays, and Fridays tramadol 50 mg tablet 50 mg PO Q8H PRN (Reason: pain) Qty: 60 1RF levothyroxine 75 mcg tablet 75 mcg PO DAILY Qty: 30 5RF ondansetron HCl 4 mg tablet See Rx Instructions .ROUTE .COMPLEX Qty: 30 3RF Dose Instruction: 4 MG ORALLY DAILY NEEDED FOR NAUSEA AND VOMITING Rx Instructions: 4 MG ORALLY DAILY NEEDED FOR NAUSEA AND VOMITING spironolactone 25 mg tablet 25 mg PO DAILY Qty: 30 2RF alprazolam 1 mg tablet 1 mg PO QID Qty: 120 1RF clopidogrel [Plavix] 75 mg tablet 75 mg PO DAILY Qty: 30 2RF irbesartan 150 mg tablet See Rx Instructions .ROUTE .COMPLEX Qty: 90 0RF Dose Instruction: TAKE ONE TABLET (150 MG) BY MOUTH DAILY Rx Instructions: TAKE ONE TABLET (150 MG) BY MOUTH DAILY amlodipine 5 mg tablet 5 mg PO DAILY Qty: 90 2RF Follow-up/Referrals: Irving Montes MD [Primary Care Provider, [facility]]
--- NOTE | 2025-07-13 23:33 | PC.NURSE ---
This RN and Janelle MAJOR attempted peripheral IV x2 with no success. MORIAH Mckoy to bedside for ultrasound IV.
[2025-07-14 00:06] LABS: Hematocrit 29.6 % (37.0-47.0); Hemoglobin 9.2 g/dL (12.0-15.0); Immature Granulocyte Percent A 2.7 % (0-0.5); Lymphocytes Absolute Auto 1.37 K/mm3 (0.9-3.2); Mean Corpuscular HGB Conc 31.1 g/dl (32-36); Mean Corpuscular Hemoglobin 26.7 pg (26-34); Mean Corpuscular Volume 85.8 fl (80-100); Nucleated Red Blood Cells Absolute Auto 0.000 K/mm3 (0.0-0.012); Nucleated Red Blood Cells Perc 0.0 % (0.0-0.2); Platelet Count Result 501 k/mm3 (150-375); Red Blood Count 3.45 M/mm3 (4.2-5.4); White Blood Count 16.9 K/mm3 (4.5-10.0)
[2025-07-14 00:22] LABS: Alanine Aminotransferase 15 U/L (6-35); Albumin Level 3.8 g/dL (3.5-5.1); Alkaline Phosphatase 96 U/L (38-126); Anion Gap 10 mmol/L (4-12); Aspartate Amino Transferase 23 U/L (14-36); Bilirubin,Total 0.7 mg/dL (0.2-1.3); Blood Urea Nitrogen 31 mg/dL (7-17); Calcium 9.2 mg/dL (8.4-10.2); Carbon Dioxide 25 mmol/L (22-30); Chloride 101 mmol/L (98-107); Estimated CRCL calculation 30 ml/min; Estimated Glomerular Filt Rate 37; Glucose 131 mg/dL (65-110); Lipase 50 U/L (23-300); Potassium 4.1 mmol/L (3.4-5.0); Sodium 136 mmol/L (137-145); Total Protein 7.5 g/dL (6.3-8.2)
[2025-07-14 00:25] VITALS: BP 176/76; PULSE 99; RESP 17; O2SAT 99
[2025-07-14 00:33] LABS: Add Urine Microscopic? YES; Appearance Urine Cloudy (Clear); Glucose Urine UA Negative (Negative); Leukocyte Esterase Ur 3+ LEU/UL (Negative); Nitrate Urine Negative (Negative); Non Pathogenic Casts 0-2; Specific Grav Ur 1.012 (1.001-1.035)
--- NOTE | 2025-07-14 00:38 | PC.NURSE ---
Pt placed on hovermat to assist with movement. Pt requested that barrier cream be placed on her coccyx. This RN and ERT's rolled pt to complete pericare, placed purewick and applied barrier cream. Pt left leg elevated on blankets.
--- NOTE | 2025-07-14 00:40 | ECG_ITS ---
Test Date: 2025-07-14 00:47:27 Measurements Intervals [place] Rate: 101 P: 52 DE: 171 QRS: 10 QRSD: 88 T: 52 QT: 349 QTc: 452 Interpretive Statements SINUS TACHYCARDIA ABNORMAL RHYTHM ECG No previous ECG available for comparison Electronically Signed On 07-14-2025 07:21:43 RECREATIONAL COUNSELOR by Brandyn Soares D.O
[2025-07-14] MEDS: SODIUM CHLORIDE 0.9% IV 1,000 ML 999 ML IV CONT (00:42)
[2025-07-14 00:50] LABS: Influenza A QL RT-PCR Negative (Negative); Influenza B QL RT-PCR Negative (Negative); RSV RNA, RT-PCR Negative (Negative); SARS-CoV-2 RNA PCR Negative (Negative)
[2025-07-14] MEDS: cefTRIAXone 1 GM in SODIUM CHLORIDE 0.9% IV 50 ML 100 ML IVPB (01:03)
[2025-07-14] MEDS: VANCOMYCIN 1,250 MG/NS 250 ML 1,250 MG/250 ML BAG 166.67 MG IVPB ×2 (01:37→05:19)
[2025-07-14] MEDS: LACTATED RINGERS 1,000 ML 999 ML IV CONT (02:10)
[2025-07-14 03:21] VITALS: BMI 36.5
--- NOTE | 2025-07-14 03:22 | ADMGEN ---
This patient, Lucille Vasques, was admitted to [facility] Surg Room 323-01. Patient/family oriented to hospital policies and general routines including ID bracelet, bed and alarms, visiting hours, pain management, procedures, bathroom and other care routines, personal items, smoking policy, room service/diet, and visiting hours. Information on how to activate the Rapid Response Team has been discussed. Patient/Family are encouraged to report perceived risks to care and to ask questions if they do not understand what they are told or what they should do.
--- NOTE | 2025-07-14 05:01 | PC.NURSE ---
Notified Betsey Olguin @ 05:01 of Sepsis risk on pt.
[2025-07-14] MEDS: LACTATED RINGERS 1,000 ML 150 ML IV CONT (05:19)
--- NOTE | 2025-07-14 05:26 | PM.IMHP ---
H&P: HPI History of Present Illness Date/Time: 07/14/25 05:26 Chief Complaint: Erythema and redness to left lower extremity. Narrative: This is an 89-year-old female patient who resides at a skilled care facility. The patient has a history of recurrent cellulitis to the left lower extremity. She is a very poor historian. She tells me that her left lower extremity is sore to touch and that I should not touch it. The patient confused for several days. Her white count was noted to be 16.9. Her H&H is 9.2 in 29.6 which is at her baseline. Her BUN is 31 and creatinine 1.35. GFR 37. Urinalysis has 3+ leukocyte esterase and greater than 100 urine wbc's. She has 4+ urine bacteria as well. Her serology test was negative. The preliminary head CT was read as negative. The patient was given 1 L bolus of IV fluids in the emergency room and then LR started at 150 cc. The patient was started on ceftriaxone and vancomycin. The patient is being admitted to inpatient status on the date of service of 07/14/2025. Review of Systems Review of Systems: ROS unobtainable: Yes unobtainable due to mental status Constitutional: Constitutional: Reports as per HPI and Reports no additional constitutional complaints Eyes: Eyes: Reports as per HPI and Reports no additional eye complaints ENT: Reports system reviewed and no additional complaints, except as documented and Reports Normal hearing present Cardiovascular: Cardiovascular: Reports no additional cardiovascular complaints Respiratory: Respiratory: Reports as per HPI and Reports no additional respiratory complaints Gastrointestinal: Gastrointestinal: Reports as per HPI and Reports no additional gastrointestinal complaints Genitourinary: Genitourinary: Reports no additional female genitourinary complaints Musculoskeletal: Musculoskeletal: Reports no additional musculoskeletal complaints Integumentary/Breasts: Skin/Breast: Reports system reviewed and no additional complaints, except as docu Neurologic: Reports system reviewed and no additional complaints, except as documented and Reports Normal hearing present Psychiatric: Psychiatric: Reports no additional psychiatric complaints and Reports as per HPI Hematologic/Lymphatic: Hematologic/Lymphatic: Reports no additional hematologic/lymphatic complaints Allergic/Immunologic: Allergic/Immunologic: Reports no additional allergic/immunologic complaints [facility] Past Medical History Medical History (Updated 07/18/25 @ 11:24 by Marcos Boone MD) Cellulitis, leg HTN (hypertension) Combined variable immunodeficiency Hiatal hernia Mixed hyperlipidemia Rectal abscess September 2024 Stasis dermatitis of both legs Left greater than right Carotid stenosis, left COPD with asthma Cellulitis of leg, left Chronic Anemia in chronic kidney disease Umbilical hernia Basal cell carcinoma of nose Skin cancer Lesion of skin of nose Nasal polyp Morbid (severe) obesity due to excess calories Heart failure with preserved ejection fraction Urinary incontinence History of DVT (deep vein thrombosis) Obstructive sleep apnea Iron deficiency anemia Leg weakness, bilateral Lumbar spondylosis Memory loss Mass of right thigh Insomnia Chronic kidney disease, stage 4 (severe) Ataxia Diffuse nodular cirrhosis of liver Ventral hernia without obstruction or gangrene Vitamin D deficiency Hypothyroidism Screening mammogram for high-risk patient Anxiety Depression DDD (degenerative disc disease) Osteoporosis GERD (gastroesophageal reflux disease) Inguinal hernia IBS (irritable bowel syndrome) Gastrointestinal ulcer Emphysema of lung Asthma TIA (transient ischemic attack) Low vitamin B12 level Surgical History Surgical History Hx of oral surgery H/O arthroscopic knee surgery Hx of bilateral hip replacements History of bladder surgery bladder tie-up Hx of tonsillectomy Hx of cataract surgery Family History Family History Mother Family history of suicide Patient's mother is Father Patient's father is , Onset Age: 76 Family history of malignant neoplasm Other Family history of cardiovascular disease Family history of coronary artery disease Hypertension Social History Social History (Updated 07/15/25 @ 01:13 by Monica Dueñas RN) Social History: The patient is she has lived in an assisted living facility for about 6 years. She is noted to reside at [facility] at this time. She had 1 son who has . She used to work for the [employer] and then she volunteered 17 years at [employer] for [employer]. She quit smoking at age 60. She smoked up to 2 packs per day at 1 point. Code status: DNR/DNI Healthcare power of litigation attorney: Joan South (granddaughter) Smoking packs per day: 2 Smoking cigarettes per day: 40.0 Years smoked: 40 Smoking pack-years: 80.00 Smoking status: Former smoker Tobacco type: cigarettes Second hand tobacco smoke exposure: No Smoking end date: 04/23/25 Alcohol intake: former Drinks per week: 1 Substance use: former Substance use type: marijuana Last use: Pt has stopped the gummies. 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 Gender identity (if verbalized by the patient): Female Sexual Orientation (if Verbalized by the Patient): Straight or Heterosexual Spiritual care concerns: No Meds Home Medications and Allergies Home Medications ?Medication ?Instructions ?Recorded ?Confirmed ?Type escitalopram oxalate 10 mg tablet 10 mg PO QAM #90 tabs 11/09/24 07/14/25 Rx esomeprazole magnesium 40 mg 40 mg PO DAILY #90 caps 11/09/24 07/14/25 Rx capsule,delayed release montelukast 10 mg tablet 10 mg PO DAILY #90 tabs 11/22/24 07/14/25 Rx acetaminophen 500 mg tablet 500 mg PO Q6H PRN fever or pain 11/23/24 07/14/25 History atorvastatin 20 mg tablet (Lipitor) 20 mg PO QHS #90 tabs 11/23/24 07/14/25 Rx hydralazine 10 mg tablet 10 mg PO TID PRN hypertension #60 11/23/24 07/14/25 Rx tabs albuterol sulfate 2.5 mg/3 mL 2.5 mg (3 mL) inhalation Q4H PRN 01/11/25 07/14/25 Rx (0.083 %) solution for nebulization shortness of breath or wheezing #90 mL albuterol sulfate 90 mcg/actuation 2 inh inhalation Q4H #8.5 grams 01/11/25 07/14/25 Rx aerosol inhaler calcitriol 0.25 mcg capsule 0.25 mcg PO 3XW #90 caps 01/21/25 07/14/25 Rx econazole nitrate 1 % topical cream 1 applic topical BID #85 grams 01/25/25 07/14/25 Rx white petrolatum 41 % topical 1 applic topical DAILY PRN dry 02/22/25 07/14/25 Rx ointment (Aquaphor Original) skin #396 grams tramadol 50 mg tablet 50 mg PO Q8H PRN pain #60 tabs 03/05/25 07/14/25 Rx levothyroxine 75 mcg tablet 75 mcg PO DAILY #30 tabs 03/08/25 07/14/25 Rx ondansetron HCl 4 mg tablet See Rx Instructions .Route 03/09/25 07/14/25 Rx .COMPLEX #30 tabs spironolactone 25 mg tablet 25 mg PO DAILY #30 tabs 03/20/25 07/14/25 Rx alprazolam 1 mg tablet 1 mg PO QID #120 tabs 03/24/25 07/14/25 Rx clopidogrel 75 mg tablet (Plavix) 75 mg PO DAILY #30 tabs 04/04/25 07/14/25 Rx irbesartan 150 mg tablet See Rx Instructions .Route 04/04/25 07/14/25 Rx .COMPLEX #90 tabs amlodipine 5 mg tablet 5 mg PO DAILY #90 tabs 04/22/25 07/14/25 Rx albuterol sulfate 90 mcg/actuation 2 inh inhalation Q4H PRN COPD 07/14/25 07/14/25 History aerosol inhaler (Ventolin HFA) budesonide 0.5 mg/2 mL suspension 0.5 mg inhalation DAILY COPD 07/14/25 07/14/25 History for nebulization bumetanide 2 mg tablet 1 mg PO DAILY edema 07/14/25 07/14/25 History Held on 04/28/25. Instructions: Resume on 05/09/25. Hold until follow up with PCP. Monitor for edema. multivitamin,qu-rqdp-Xr-FA-min 1 tablet PO DAILY 07/14/25 07/14/25 History nystatin 100,000 unit/gram topical 1 applic topical .Q 8hrs 07/14/25 07/14/25 History powder Allergies Allergy/AdvReac Type Severity Reaction Status Date / Time codeine Allergy Unknown Unknown Verified 07/14/25 04:37 niacin Allergy Unknown Unknown Verified 07/14/25 04:37 Penicillins Allergy Unknown Unknown Verified 07/14/25 09:36 ciprofloxacin AdvReac Mild Nausea Verified 07/14/25 04:37 Vital Signs Vital Signs - 24 hr 07/13/25 18:19 07/13/25 20:42 07/13/25 22:49 Temperature 97.8 F 97.7 F Pulse Rate 99 80 96 Respiratory Rate 20 16 14 Blood Pressure 171/59 H 152/108 H 156/67 H Pulse Oximetry 99 100 100 Oxygen Delivery Room Air Room Air 07/14/25 00:25 Temperature Pulse Rate 99 Respiratory Rate 17 Blood Pressure 176/76 H Pulse Oximetry 99 Oxygen Delivery Exam Const: General: cooperative, healthy appearing, comfortable, no acute distress, well developed and awake Nutritional Appearance: average body habitus Orientation/consciousness: oriented to person HENMT: Head: normal to inspection, No palpable skull fracture present, normocephalic, atraumatic and abrasion Eyes: General: appearance normal, both eyes and all related structures Alignment and Position: alignment normal Periorbital: periorbital findings normal Eyelids: eyelids normal Neck: Neck: normal visual inspection and full ROM Chest: Chest palpation & inspection: normal inspection of the chest Resp: Effort & Inspection: normal respiratory effort Auscultation: clear to auscultation bilaterally Cardio: Palpation: normal PMI Rate: regular rate Rhythm: regular rhythm Heart sounds: S1 normal heart sound present and S2 normal heart sound present GI: Inspection: normal to inspection Percussion: Yes normal to percussion Auscultation: normal bowel sounds Rectal Exam: deferred Back/Spine/Pelvis: Back: no CVA tenderness Skin: General skin exam: normal color Neuro: General: oriented to person Cranial nerves: Yes Normal hearing present Extrem: General: normal to inspection Right upper extremity: normal to inspection and shoulder/upper arm Left upper extremity: normal to inspection and shoulder/upper arm Right lower extremity: normal to inspection Left lower extremity: normal to inspection Other: Left lower extremity erythematous, tender, with dry flaky skin just below the knee to her toes. One to 2+ pitting edema to left lower extremity. I was unable to check for pulse at this time as it is too painful for her. Psych: Appearance: grossly normal Mental Status: mental status grossly normal Speech and movement: Normal speech and movement present Affect: normal affect H&P: Results Labs Labs: Short CBC 07/13/25 Range/Units 23:56 WBC 16.9 H (4.5-10.0) K/mm3 Hgb 9.2 L (12.0-15.0) g/dL Hct 29.6 L (37.0-47.0) % Plt Count 501 H (150-375) k/mm3 BMP 07/13/25 23:56 Sodium 136 L Potassium 4.1 Chloride 101 Carbon Dioxide 25 BUN 31 H Creatinine 1.35 H Glucose 131 H Calcium 9.2 Liver Function 07/13/25 Range/Units 23:56 Total Bilirubin 0.7 (0.2-1.3) mg/dL AST 23 (14-36) U/L ALT 15 (6-35) U/L Alkaline Phosphatase 96 (38-126) U/L Albumin 3.8 (3.5-5.1) g/dL Urine 07/14/25 Range/Units 00:24 Urine Color Yellow (Yellow) Urine Appearance Cloudy H (Clear) Urine pH 5.5 (5.0-9.0) Ur Specific [place] 1.012 (1.001-1.035) Urine Protein 1+ H (Negative) mg/dL Urine Glucose (UA) Negative (Negative) mg/dL Assessment and Plan Assessment and plan (1) Acute UTI: Code(s): N39.0 - Urinary tract infection, site not specified Status: Acute Assessment and Plan: -UA reveals 3+ leukocyte esterase, wbc's greater than 100 and urine bacteria 4+. -the patient was started on Rocephin. -patient does not appear to be septic. Patient's heart rate is less than 90 and she has elevation to her blood pressure. She is afebrile. However shows leukocytosis with a white count 16.9. -urine and blood cultures are pending. (2) Cellulitis of leg, left: Code(s): L03.116 - Cellulitis of left lower limb Status: Acute Assessment and Plan: -the patient is on Rocephin. -infectious disease consult with greatly be appreciated. -blood cultures are pending. -she is nondiabetic and she has had recurrent cellulitis to the left lower extremity. (3) HTN (hypertension): Qualifiers: Hypertension type: primary hypertension Qualified Code(s): I10 - Essential (primary) hypertension Code(s): I10 - Essential (primary) hypertension Status: Acute Assessment and Plan: -current blood pressure is 165/76. -continue with Norvasc -continue with routine hydralazine -continue with irbesartan (4) Heart failure with preserved ejection fraction: Qualifiers: Heart failure chronicity: chronic Qualified Code(s): I50.32 - Chronic diastolic (congestive) heart failure Code(s): I50.30 - Unspecified diastolic (congestive) heart failure Status: Acute Assessment and Plan: -continue with irbesartan -strict I and O -continue with spironolactone (5) Hyperlipidemia: Qualifiers: Hyperlipidemia type: pure hypercholesterolemia Qualified Code(s): E78.00 - Pure hypercholesterolemia, unspecified Code(s): E78.5 - Hyperlipidemia, unspecified Status: Acute Assessment and Plan: -continue with atorvastatin (6) Hypothyroidism: Qualifiers: Hypothyroidism type: acquired Qualified Code(s): E03.9 - Hypothyroidism, unspecified Code(s): E03.9 - Hypothyroidism, unspecified Status: Acute Assessment and Plan: -continue levothyroxine. (7) Anemia in chronic kidney disease: Qualifiers: Chronic kidney disease stage: stage 4 (severe) Qualified Code(s): N18.4 - Chronic kidney disease, stage 4 (severe); D63.1 - Anemia in chronic kidney disease Code(s): N18.9 - Chronic kidney disease, unspecified; D63.1 - Anemia in chronic kidney disease Status: Acute Assessment and Plan: -patient is at her baseline appears to be stable. -daily CBCs. Quality If No VTE Prophylaxis Answer both mechanical and pharmacologic: Reason no mechanical VTE proph: medical contraindication Reason no pharmacologic proph: medical contraindication
[2025-07-14 05:48] VITALS: BP 165/76; PULSE 86; RESP 20; TEMP 36.7; O2SAT 95
[2025-07-14] MEDS: LEVOTHYROXINE SODIUM 75 MCG TABLET PO (06:59)
--- OUTSIDE RECORDS SUMMARY | 2025-07-14 07:57 | XMS_ITS ---
Author Organization [facility] Address [address] [place] [id number] Care Team Providers Care Ruby Developer Name Role Phone DR. ROSEY CRANE Primary Care Provider [phone] Allergies Allergen (clinical drug ingredient) Drug/Non Drug Allergy documented on EMR Reaction Allergy Type Onset Date Status ciprofloxacin Ciprofloxacin Unknown Drug Allergy Active clindamycin Clindamycin Unknown Drug Allergy Act julio codeine Codeine Unknown Drug Allergy Active doxycycline Doxycycline Unknown Drug Allergy Act julio niacin Niacin Unknown Drug Allergy Active Penicillin Unknown Drug Allergy Active REASON FOR VISIT chart prep Medications Medication SIG (Take, Route, Frequency, Duration) Notes Start Date End Date Status Atorvastatin Calcium 20 MG Tablet 1 tablet Orally Once a day Active Social History Tobacco Use: Social History Observation Description Date Details (start date - stop date) Former Smoker NA - NA Social History Tobacco Use: Social Info Question Answer Notes Tobacco Control (Standard) Tobacco use: Former smoker Encounters Encounter Location Date Provider Diagnosis [address] [place] [id number] 07/14/2025 ROSEY CRANE Plan Of Treatment Next Appt Details Provider Name:Ariella Flores rt, 07/15/2025 11:30:00 AM, [address] [place] [address] [place], [id number], Provider Name:Ariella Flores rt, 07/18/2025 06:45:00 AM, [address] [place] [address] [place], [id number], Progress Notes * Lucille SEVILLA MDOB: (89 yo F)Acc No.[id number]:07/14/2025 Patient: Lucille PEÑA :1935 A ge:89 Y S ex:Female Address:[address] [place] [address], [place] [address] Subjective: * Chief Complaints: * C givens prep * Medical History: Other intervertebral disc degeneration, [...] unspecified Age-related osteoporosis without current pathological fracture * Surgical History: BLADDER SURGERY TOTAL HIP ARTHROPLASTY Surgical History verified. * Family History: F amily History Verified.. NO KNOWN PROBLEMS. * Social History: T obacco Use: T obacco Control (Standard) T obacco use: F ormer smoker. Social History Verified. * Medications: T akingAtorvastatin Calcium 20 MG Tablet 1 tablet Orally Once a day Taking Atorvastatin Calcium 20 MG Tablet 1 tablet Orally Once a day DiscontinuedNystatin - Powder as directed Acetaminophen 500 MG [...] 1 tablet Orally 4 times a day Discontinued Nystatin - Powder as directed Discontinued Acetaminophen 500 MG Tablet 1 tablet as needed Orally every 6 hrs Discontinued amLODIPine Besylate 5 MG Tablet 1 tablet Orally Once a day Discontinued Budesonide 0.5 MG/2ML Suspension 1 mL Inhalation Twice a day As neededDiscontinued Bumetanide 1 MG Tablet 1 tablet Orally Once a day Discontinued Calcitriol 0.25 MCG Capsule 1 capsule Orally Three times a Week Discontinued Clopidogrel Bisulfate 75 MG Tablet 1 tablet Orally Once a day Discontinued Econazole Nitrate 1 % Cream 1 application Externally Twice a day Discontinued Escitalopram Oxalate 10 MG Tablet 1 tablet Orally Once a day Discontinued Esomeprazole Magnesium 40 MG Capsule Delayed Release 1 capsule 1/2 to 1 hour before morning meal Orally Once a day Discontinued hydrALAZINE HCl 10 MG Tablet 1 tablet Orally every 8 hours As neededDiscontinued Ipratropium-Albuterol 0.5- 2.5 (3) MG/3ML Solution 3 mL as needed Inhalation every 8 hours Discontinued Irbesartan 150 MG Tablet 1 tablet Orally Once a day Discontinued Levothyroxine Sodium 75 MCG Tablet 1 tablet in the morning on an empty stomach Orally Once a day Discontinued Montelukast Sodium 10 MG Tablet 1 tablet Orally Once a day Discontinued Ondansetron 4 MG Tablet Disintegrating 1 tablet on the tongue and allow to dissolve Orally Once a day Discontinued Skin Prep Wipes - Miscellaneous as directed Discontinued Spironolactone 25 MG Tablet 1 tablet Orally Once a day Discontinued Thera-M - Tablet 1 tablet Orally daily Discontinued Ventolin HFA 108 (90 Base) MCG/ACT Aerosol Solution 2 puffs Inhalation every 4 hrs As neededDiscontinued traMADol HCl 50 MG Tablet 1 tablet as needed Orally every 8 hours Discontinued ALPRAZolam 1 MG Tablet 1 tablet Orally 4 times a day * Allergies: C iprofloxacinClindamycinCodeineDoxycyclineNiacinPenicillinyesAllergies Verified. * true * Date: Generated for Divya steel/Carlita/Jose Raul on: 09/13/2024 03:31 PM [employer] C[employer]ODIAN
[2025-07-14 08:00] VITALS: PULSE 91; RESP 18
[2025-07-14] MEDS: ALBUTEROL SULFATE NEB 2.5 MG/3 ML INH INHALATION (08:03)
[2025-07-14] MEDS: BUDESONIDE RESPULE NEB 0.5 MG/2 ML AMP INHALATION (08:03)
[2025-07-14 08:14] VITALS: PULSE 92; RESP 18
--- NOTE | 2025-07-14 08:46 | P.PNIM_ITS ---
Progress Note: A&P Assessment and Plan (1) Acute UTI: Code(s): N39.0 - Urinary tract infection, site not specified Status: Acute Assessment and Plan: -patient does not appear to be septic. Patient's heart rate is less than 90 and she has elevation to her blood pressure. She is afebrile. However shows leukocytosis with a white count 16.9. -UA reveals 3+ leukocyte esterase, wbc's greater than 100 and urine bacteria 4+. -the patient was started on Rocephin. -urine culture and sensitivity pending - blood cultures are pending. (2) Cellulitis of leg, left: Code(s): L03.116 - Cellulitis of left lower limb Status: Acute Assessment and Plan: -the patient is on Rocephin and vancomycin -infectious disease consult pending recommendations -blood cultures are pending. -she is nondiabetic and she has had recurrent cellulitis to the left lower extremity. Pain medication adjusted (3) HTN (hypertension): Qualifiers: Hypertension type: primary hypertension Qualified Code(s): I10 - Essential (primary) hypertension Code(s): I10 - Essential (primary) hypertension Status: Acute Assessment and Plan: -current blood pressure is 165/76. -continue with Norvasc -continue with hydralazine -continue with irbesartan (4) Heart failure with preserved ejection fraction: Qualifiers: Heart failure chronicity: chronic Qualified Code(s): I50.32 - Chronic diastolic (congestive) heart failure Code(s): I50.30 - Unspecified diastolic (congestive) heart failure Status: Acute Assessment and Plan: Euvolemic -continue with irbesartan -strict I and O -continue with spironolactone (5) Hyperlipidemia: Qualifiers: Hyperlipidemia type: pure hypercholesterolemia Qualified Code(s): E78.00 - Pure hypercholesterolemia, unspecified Code(s): E78.5 - Hyperlipidemia, unspecified Status: Acute Assessment and Plan: -continue with atorvastatin (6) Hypothyroidism: Qualifiers: Hypothyroidism type: acquired Qualified Code(s): E03.9 - Hypothyr oidism, unspecified Code(s): E03.9 - Hypothyroidism, unspecified Status: Acute Assessment and Plan: -continue levothyroxine. (7) Anemia in chronic kidney disease: Qualifiers: Chronic kidney disease stage: stage 4 (severe) Qualified Code(s): N18.4 - Chronic kidney disease, stage 4 (severe); D63.1 - Anemia in chronic kidney disease Code(s): N18.9 - Chronic kidney disease, unspecified; D63.1 - Anemia in chronic kidney disease Status: Acute Assessment and Plan: -patient is at her baseline appears to be stable. -daily CBCs. Time Spent With Patient Time with patient: Greater than 35 minutes Subjective Date/time seen: 07/14/25 08:46 Interval history: 89-year-old female history of COPD, DVT, hypothyroidism presents the hospital with left lower extremity cellulitis and UTI started on Rocephin and vancomycin. Patient complaining of leg pain 03/17, pain meds adjusted Review of Systems Review of Systems: 12 systems were reviewed and are negativ e except for as per HPI. Exam Narrative: General: well appearing, appears stated age. HEENT: normocephalic, atraumatic. Mucous membranes moist. EOMI, PERRLA, bilateral sclera anicteric, no conjunctival injection. Neck supple without JVD, lymphadenopathy, or bruit. Respiratory: clear bilaterally. No rales/rhonic/wheezes. Cardiovascular: Regular rate and rhythm, normal S1-S2. No murmurs, rubs, or clicks. PMI is nondisplaced, capillary refill less than 3 second. Abdomen: Soft, round, no pulsatile masses, nondistended and nontender. No rebound, no guarding. Bowel sounds present to all four quadrants. No high pitch or tinkling sounds, resonant to percussion. Extremities: No cyanosis, clubbing, or edema present. Pulses are palpable 2/2. Left lower extremity erythema with blisters up to knee, painful or to palpation Neuro: Alert and orientated x 4. PERRLA. Cranial nerves 2-12 intact without focal deficit. Skin: Warm, dry, and intact, without rash, erythema, or lesion. Psych: pleasant, cooperative, normal speech, normal affect, no hallucinations, no dysarthia Objective Data Vital Signs Vital Signs: Vital Signs - 24 hr 07/13/25 18:19 07/13/25 20:42 07/13/25 22:49 Temperature 97.8 F 97.7 F Pulse Rate 99 80 96 Respiratory Rate 20 16 14 Blood Pressure 171/59 H 152/108 H 156/67 H Pulse Oximetry 99 100 100 Oxygen Delivery Room Air Room Air 07/14/25 00:25 07/14/25 05:48 07/14/25 08:00 Temperature 98.1 F Pulse Rate 99 86 91 Respiratory Rate 17 20 18 Blood Pressure 176/76 H 165/76 H Pulse Oximetry 99 95 Oxygen Delivery 07/14/25 08:14 Temperature Pulse Rate 92 Respiratory Rate 18 Blood Pressure Pulse Oximetry Oxygen Delivery Intake/Output Intake/Output: Intake & Output 07/11/25 07/12/25 07/13/25 07/14/25 23:59 23:59 23:59 23:59 Intake Total 1290 Output Total 425 Balance 865 Meds/Results Medications: Active Medications Generic Name Dose Route Start Last Admin Trade Name Freq PRN Reason Stop Dose Admin Acetaminophen 500 mg 07/14/25 06:13 Acetaminophen 500 Mg Tablet PO Q6H PRN fever or pain 1-3 Albuterol 2.5 mg 07/14/25 06:13 07/14/25 08:03 Albuterol Sulfate Neb 2.5 Mg/3 Ml Inh INHALATION 2.5 mg Q4H PRN Administration Shortness Of Breath Or Wheezing Amlodipine Besylate 5 mg 07/14/25 09:00 Amlodipine Besylate 5 Mg Tablet PO DAILY KAVITHA Atorvastatin Calcium 20 mg 07/14/25 21:00 Atorvastatin 20 Mg Tablet PO QHS KAVITHA Budesonide 0.5 mg 07/14/25 08:00 07/14/25 08:03 Budesonide Respule Neb 0.5 Mg/2 Ml Amp INHALATION 0.5 mg DAILYRT KAVITHA Administration Calcitriol 0.25 mcg 07/15/25 09:00 Calcitriol 0.25 Mcg Capsule PO [id number] KAVITHA Clopidogrel Bisulfate 75 mg 07/14/25 09:00 Clopidogrel Bisulfate 75 Mg Tablet PO DAILY KAVITHA Escitalopram Oxalate 10 mg 07/14/25 09:00 Escitalopram Oxalate 10 Mg Tablet PO QAM KAVITHA Hydralazine HCl 10 mg 07/14/25 06:13 Hydralazine 10 Mg Tablet PO TID PRN Hypertension Ceftriaxone Sodium 1 gm/ 50 mls @ 100 mls/hr 07/14/25 22:00 Sodium Chloride IVPB Q24H KAVITHA Lactated Ringer's 1,000 mls @ 75 mls/hr 07/14/25 00:55 07/14/25 05:19 Lr - Lactated Ringers Iv IV CONT 07/14/25 14:14 150 mls/hr .[id number] STA Administration Vancomycin HCl 1,500 mg in 500 mls @ 250 mls/hr 07/15/25 14:00 Vancomycin 1,500 Mg/Ns 500 Ml IVPB Q36H KAVITHA Irbesartan 150 mg 07/14/25 09:00 Irbesartan 150 Mg Tablet PO QAM [facility] Levothyroxine Sodium 75 mcg 07/14/25 06:50 07/14/25 06:59 Levothyroxine Sodium 75 Mcg Tablet PO 75 mcg DAILY@0630 KAVITHA Administration Miconazole Nitrate 1 applic 07/14/25 09:00 Miconazole Nitrate 2% Cream 30 Gm Tube TOPICAL Q12HR [facility] Miscellaneous Information 1 each 07/14/25 00:01 Please Add Site Of Application For Miconazole Cream (Therapeutic Sub For Econazole Cream) XX 08/13/25 00:00 CLARIFY [facility] Montelukast Sodium 10 mg 07/14/25 09:00 Montelukast Sodium 10 Mg Tablet PO DAILY [facility] Pantoprazole Sodium 40 mg 07/14/25 09:00 Pantoprazole 40 Mg Tablet PO 08/13/25 08:59 DAILY [facility] Spironolactone 25 mg 07/14/25 09:00 Spironolactone 25 Mg Tablet PO DAILY [facility] Tramadol HCl 50 mg 07/14/25 06:13 Tramadol Hcl (*Crx) 50 Mg Tablet PO Q8H PRN Pain 4-6 Radiology Results: ITS Impressions Head CT 07/14/25 07:24 IMPRESSION: 1. Stable moderate nonspecific cerebral white matter disease, which likely represents chronic small vessel ischemic disease. Chest X-Ray 07/14/25 08:19 IMPRESSION: 1. Mild bibasilar atelectasis. Labs Labs: Laboratory Results - last 24 hr 07/13/25 07/14/25 07/14/25 23:56 00:06 00:24 WBC 16.9 H RBC 3.45 L Hgb 9.2 L Hct 29.6 L MCV 85.8 MCH 26.7 MCHC 31.1 L RDW 15.2 H Plt Count 501 H MPV 8.6 Immature Gran % (Auto) 2.7 H Neut % (Auto) 75.6 H Lymph % (Auto) 8.1 L [place] % (Auto) 9.0 H Eos % (Auto) 4.1 Baso % (Auto) 0.5 Lymph # (Auto) 1.37 [place] # (Auto) 1.5 H Eos # (Auto) 0.7 H Baso # (Auto) 0.1 Abs Immat Gran (auto) 0.46 H Absolute Neuts (auto) 12.7 H Absolute Nucleated RBC 0.000 Nucleated RBC % 0.0 Sodium 136 L Potassium 4.1 Chloride 101 Carbon Dioxide 25 Anion Gap 10 BUN 31 H Creatinine 1.35 H Estim Creat Clear Calc 30 Estimated GFR 37 L Glucose 131 H Lactic Acid 1.5 Calcium 9.2 Total Bilirubin 0.7 AST 23 ALT 15 Alkaline Phosphatase 96 Total Protein 7.5 Albumin 3.8 Lipase 50 Urine Color Yellow Urine Appearance Cloudy H Urine pH 5.5 Ur Specific [place] 1.012 Urine Protein 1+ H Urine Glucose (UA) Negative Urine Ketones Negative Ur Blood (Man) Trace Urine Nitrate Negative Urine Bilirubin Negative Urine Urobilinogen 0.2 Leukocyte Esterase Rfl 3+ H Urine RBC 0-2 Urine WBC >100 H Ur Squamous Epith Cells None seen Urine Bacteria 4+ H Urine Casts 0-2 Influenza A (RT-PCR) Negative Influenza B (RT-PCR) Negative RSV (RT-PCR) Negative SARS-CoV-2 RNA (RT-PCR) Negative Quality VTE Prophylaxis VTE prophylaxis: pharmacologic ordered If No VTE Prophylaxis Answer both mechanical and pharmacologic: Reason no mechanical VTE proph: medical contraindication
[2025-07-14] MEDS: CLOPIDOGREL BISULFATE 75 MG TABLET PO (10:00)
[2025-07-14] MEDS: SPIRONOLACTONE 25 MG TABLET PO (10:00)
[2025-07-14] MEDS: PANTOPRAZOLE 40 MG TABLET PO (10:00)
[2025-07-14] MEDS: ESCITALOPRAM OXALATE 10 MG TABLET PO (10:00)
[2025-07-14] MEDS: MONTELUKAST SODIUM 10 MG TABLET PO (10:00)
[2025-07-14] MEDS: IRBESARTAN 150 MG TABLET PO (10:00)
[2025-07-14] MEDS: traMADol HCL (*CRX) 50 MG TABLET PO ×2 (12:25→23:46)
[2025-07-14 14:00] VITALS: BP 126/56; PULSE 79; RESP 18; TEMP 37.2; O2SAT 95
--- OUTSIDE RECORDS SUMMARY | 2025-07-14 15:31 | XMS_ITS | Encounter Summary ---
Author Organization 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 House Mechanic Name Role Phone Unknown, Notinfile Primary Care Provider Unavail Irving Conley MD Primary Care Provider [phone] Encounter Details Date Type Department Care Team (Late st Contact Info) Description 03/31/2018 Orders Only [facility] Health Information Management [address] [place] [id number] Scanning, Provider Social History Tobacco Use Types Packs/Day Years Used Date Smoking Tobacco: Former Alcohol Use Standard Drinks/Week Comments No 0 (1 standard drink = 0.6 oz pur e alcohol) Comments Unknown Sex and Gender Information Value Date Recorded Sex Assigned at Not on file Legal Sex Female 11:52 PM [employer] Gender Identity Not on file Sexual Orientation Not on file documented as of this encounter Plan of Treatment Not on file documented as of this encounter Procedures Procedure Name Priority Date/Time Associated Diagnosis Comments SCAN - LABS 03/31/2018 documented in this encounter Results * SCAN - LABS (03/31/2018) us Provider Scanning Final Result documented in this encounter Visit Diagnoses Not on filedocumented in this encounter Additional Health Concerns Infection Onset Date Last Indicated Resolved Time MDR gram neg/ESBL Comment:Contact Precautions (gown and gloves) Must be off effective antibiotics for at least 48 hours, 1 negative culture from original site (if accessible) AND 1 negative culture from any open wounds AND 1 culture from any body site with an indwelling device prior to flag removal. - Geraldo KOHLI, RN 04/15/25 03/23/2025 03/23/2025 documented as of this encounter Care Teams Boiler House Mechanic Relationship Specialty Start Date End Date Unknown, Notinfile PCP - General 09/16/17 04/26/18 Irving Montes MD PCP - General Family Medicine 04/27/18 documented as of this encounter
--- OUTSIDE RECORDS SUMMARY | 2025-07-14 15:31 | XMS_ITS | Clinical Summary ---
Author Organization [facility] [address] Address [address] [place] [address] Care Team Providers Care Grain Shipper Name Role Phone Irving Montes MD Primary Care Provider Allergies Active Allergy Reactions Criticality Noted Date Comments Clindamycin Stomach upset Medium 12/03/2024 Heartburn like symptoms burning in esophagus Codeine Doxycycline Hives Medium 08/17/2024 Niacin Penicillamine Unknown 02/18/2019 Penicillins Rash High 04/27/2018 Medications clopidogrel (PLAVIX) 75 mg tablet Take 1 tablet (75 mg total) by mouth every evening 8 Active levothyroxine (SYNTHROID) 75 mcg tablet Take 1 tablet (75 mcg total) by mouth verification rep before breakfast 1 Active ondansetron (ZOFRAN) 4 mg tablet Take 1 tablet (4 mg total) by mouth every 8 (eight) hours as needed for nausea or vomiting Active bumetanide (BUMEX) 2 mg tablet Take 1 tablet (2 mg total) by mouth daily Active amLODIPine (NORVASC) 5 mg tablet Take 1 tablet (5 mg total) by mouth daily 3 Active multivit,calc,m ins/iron/folic (THERA M PLUS, FERROUS FUMARAT, ORAL) Take 1 tablet by mouth daily Active calcitRIOL (ROCALTROL) 0.25 mcg capsule Take 1 capsule (0.25 mcg total) by mouth 3 (three) times a week Take 3 times weekly on Friday, Friday, and Friday Active albuterol 2.5 mg /3 mL (0.083 %) nebulizer solution Take 3 mL by nebulization every 4 (four) hours as needed for wheezing or shortness of breath Active escitalopram (LEXAPRO) 10 mg tablet Take 1 tablet (10 mg total) by mouth daily Active senna-docusate (PERICOLACE) 8.6-50 mg Take 1 tablet by mouth 2 (two) times a day 30 tablet 4 Active acetaminophen (TYLENOL) 500 mg tabletIndicatio ns:Fever,Pain Take 1 tablet (500 mg total) by mouth every 6 (six) hours as needed for pain Active white petrolatum-mine ral oiL (EUCERIN) cream Apply topically daily 454 g 4 Active Additional Information Patient not taking.Reported on 04/22/2025 atorvastatin (LIPITOR) 20 mg tablet Take 1 tablet (20 mg total) by mouth nightly Active hydrALAZINE (APRESOLINE) 10 mg tablet Take 1 tablet (10 mg total) by mouth 4 (four) times a day as needed (for elevated blood pressures > 160/100) Active loperamide (IMODIUM) 2 mg capsule Take 1 capsule (2 mg total) by mouth 4 (four) times a day as needed for diarrhea 5 Active polyethylene glycol (MIRALAX) 17 gram packet Take 1 packet (17 g total) by mouth daily as needed for constipation 5 Active spironolactone (ALDACTONE) 25 mg tablet Take 1 tablet (25 mg total) by mouth daily 5 Active albuterol HFA (PROVENTIL HFA,VENTOLIN HFA,PROAIR HFA) 90 mcg/actuation inhaler Inhale 2 puffs every 6 (six) hours as needed for wheezing or shortness of breath Active esomeprazole DR (NexIUM) 40 mg capsule Take 1 capsule (40 mg total) by mouth daily before breakfast Active montelukast (SINGULAIR) 10 mg tablet Take 1 tablet (10 mg total) by mouth nightly Active hydrocortisone 1 % cream in packet Apply 1 each (1 Application total) topically 2 (two) times a day as needed (itching/rash) Active miconazole 2 % cream Apply 1 Application topically 2 (two) times a day Active ALPRAZolam (XANAX) 1 mg tabletIndicatio ns:GWENDOLYN (generalized anxiety disorder) Take 1 tablet (1 mg total) by mouth every 6 (six) hours 60 tablet 1 5 Active traMADoL (ULTRAM) 50 mg tabletIndicatio ns:Arthralgia, unspecified joint Take 1 tablet (50 mg total) by mouth every 6 (six) hours 60 tablet 1 5 Active Active Problems Problem Noted Date Diagnosed Date Heel sore 04/21/2025 Assessment & Plan (04/22/2025 11:38 AM CDT): L heel sore with tenderness. Wound RN will follow. Continue wound care with offloading. Assessment & Plan (04/21/2025 9:15 AM CDT): L heel sore with tenderness. Wound RN will follow. Continue wound care with offloading. Parotitis 04/08/2025 Assessment & Plan (04/22/2025 11:37 AM CDT): Complete Levaquin, Flagyl, Bactrim as ordered. Assessment & Plan (04/21/2025 9:13 AM CDT): Continue abx as ordered, Tramadol for pain. PT/OT. Assessment & Plan (04/14/2025 3:06 PM CDT): This is subacute and improving. We will do follow up labs. We will also continue Levaquin 500 mg daily for 10 days, metronidazole 500 mg p.o. t.i.d. with a stop date April 24, and Septra ds b.i.d. through April 20. We will continue tramadol 50 mg every 6 hours. Assessment & Plan (04/08/2025 2:25 PM CDT): The swelling has enlarged in size, crossing tender. Now patient reports difficulty swallowing. I have discussed this w g'son Andrew and advised transfer to ER for eval. I have called report to [facility] LAP CUTTER TRUER OPERATOR and patient will move via tunnel. Assessment & Plan (04/08/2025 2:20 PM CDT): I have reviewed today's lab and examined the patient. I have disc the dx and tx w the patient and g'son Andrew. Also reviewed xr results knee. Reviewed current allergies listed and ordered bactrim ds Slow transit constipation 04/02/2025 Assessment & Plan (04/02/2025 11:27 AM CDT): Ducolax every day ordered _ miralax sched. Monitor. GWENDOLYN (generalized anxiety disorder) 03/30/2025 Assessment & Plan (04/14/2025 3:07 PM CDT): Continue alprazolam 1 mg every 6 hours Assessment & Plan (03/30/2025 12:28 PM CDT): Continue alprazolam 1 mg every 6 hours scheduled. She reports having taken this f or many years . A gradual dose reduction is contraindicated. Her anxiety is currently stable and reducing or stopping the medication dosing would lead to instability that would interfere with her ability to adequately participate in her restorative therapy. CKD stage 3b, GFR 30-44 ml/min 03/24/2025 Assessment & Plan (04/22/2025 11:38 AM CDT): GFR mildly elevated. Likely s/t abx. Continue monitoring outpt. Assessment & Plan (04/21/2025 9:17 AM CDT): GFR mildly elevated. Likely s/t abx. Bumex decreased. Monitor with repeat labs. May need to dose adjust abx if remains elevated. Generalized weakness 03/23/2025 Assessment & Plan (04/22/2025 11:42 AM CDT): HH PT/OT ordered for dc. Assessment & Plan (04/02/2025 11:24 AM CDT): PT/OT. Decubitus ulcer 03/23/2025 Assessment & Plan (04/22/2025 11:38 AM CDT): Continue wound care with close fu by wound MD/RN. Assessment & Plan (04/21/2025 9:15 AM CDT): Continue wound care with close fu by wound MD/RN. Occlusion and stenosis of bilateral carotid ivette rosa 11/18/2024 Assessment & Plan (03/30/2025 12:27 PM CDT): Continue Plavix 75 mg daily Assessment & Plan (11/18/2024 4:20 PM CDT): [...] repeat bilateral carotid artery duplex Anemia 09/08/2024 Assessment & Plan (03/30/2025 12:25 PM CDT): Follow up labs ordered. Mixed hyperlipidemia 10/18/2021 Assessment & Plan (03/30/2025 12:24 PM CDT): Continue atorvastatin 20 mg daily HS Other emphysema 10/18/2021 Chronic heart failure with preserved ejection fr action 07/13/2020 Assessment & Plan (04/22/2025 11:26 AM CDT): Compensated. Will increase Bumex back up to 2mg with stabilization of GFR. Continue to monitor outpt. Assessment & Plan (03/30/2025 12:24 PM CDT): This is chronic and currently stable. Continue bumetanide 2 mg daily, Aldactone 25 mg daily. Chronic eczematous otitis externa of both ears 0 03/30/2020 Hypertension 02/19/2019 Overview (02/19/2019): Hypertension Assessment & Plan (04/22/2025 11:25 AM CDT): BP flucutating. Bumex increased back to 2mg daily. Monitor, continue Norvasc, Hydralazine PRN, Spirolactone. FU PCP outpt. Assessment & Plan (04/21/2025 9:12 AM CDT): BP mildly elevated. Will monitor. Continue Norvasc, Hydralazine PRN, Aldactone, Bumex. Her Cr is mildly elevated, have decreased bumex to 1mg daily & will repeat labs . Her CHF is compensated. Assessment & Plan (04/14/2025 3:08 PM CDT): This is chronic and stable. Continue the scripting of amlodipine 5 mg daily, hydralazine 10 mg q.i.d. PRN systolic blood pressure greater than 160, and Aldactone 25 mg daily. Assessment & Plan (04/04/2025 4:04 PM CDT): Today's labs were reviewed with the patient to her satisfaction. We will continue trend her blood pressure noting her elevated blood pressure readings from this morning. We will continue the scripting of amlodipine 5 mg daily, hydralazine 10 mg q.i.d. PRN for systolic blood pressure greater than 160, and Aldactone 25 mg daily. Assessment & Plan (03/30/2025 12:24 PM CDT): This is chronic and currently stable but monitor serial vital signs for trending. Continue amlodipine 5 mg daily, hydralazine 10 mg q.i.d. PRN systolic blood pressure greater than 160, Aldactone 25 mg daily Assessment & Plan (11/09/2020 6:55 PM URBAN GARDENING SPECIALIST): Impression: Stable chronic hypertension. Plan: Medications reviewed and recommend continuing daily antihypertensive regimen as directed by patient's primary care physician. Assessment & Plan (02/19/2019 1:16 PM CDT): Stable hypertension control with use of medications. Plan: Continue management as per primary care provider. Osteoarthritis of knee 02/18/2019 Spinal stenosis of lumbar region 02/18/2019 Assessment & Plan (03/30/2025 12:26 PM CDT): Chronic, currently stable. Continue tramadol 50 mg every 6 hours scheduled Atherosclerosis of [place] of both lower extremities with intermittent claudication 08/24/2018 Stenosis of carotid artery 07/22/2016 Overview (12/13/2016): Carotid stenosis, asymptomatic, right Assessment & Plan (11/09/2020 6:59 PM URBAN GARDENING SPECIALIST): Impression: Stable asymptomatic bilateral internal carotid artery stenoses. Plan: Recommend ongoing risk factor modifications and follow-up in 1 year for re-evaluation and repeat carotid duplex surveillance. Assessment & Plan (02/19/2019 1:16 PM CDT): Stable moderate asymptomatic right carotid artery stenosis. Plan: Follow-up 1 year for re-evaluation with bilateral carotid artery duplex Renal artery stenosis of unknown cause 6 Overview (12/13/2016): Right renal artery stenosis Depression 04/10/2015 Overview (12/13/2016): Depression Gastroesophageal reflux disease 09/26/2014 Overview (12/13/2016): GERD (gastroesophageal reflux disease) Resolved Problems Problem Noted Date Diagnosed Date Resolved Date Sepsis without acute organ d ysfunction, due to unspecified organism 04/08/2025 04/21/2025 Altered mental status 04/08/20252024 Dysuria 04/04/2025 04/22/2025 Assessment & Plan (04/21/2025 9:14 AM CDT): No further complaints. Monitor. Assessment & Plan (04/04/2025 4:06 PM CDT): She complains of burning with urination. She is concerned given her history of ESBL. She asked that a new urinalysis be completed but she refuses a straight cath. I have explained the risk of collection contamination to her understanding but she still refuses. A UA as ordered. Vaginal irritation 04/02/2025 Cellulitis of left lower extremity 03/23/2025 04/21/2025 Assessment & Plan (04/02/2025 11:25 AM CDT): Complete abx as ordered. Continue Eucerin for BLE dermatitis. Montior. Assessment & Plan (03/30/2025 12:23 PM CDT): This is subacute but currently stable. Wound Care will follow. In the interim we will continue Levaquin 750 mg every other day for a total of 4 days and follow up labs have been ordered. CKD (chronic kidney disease) 03/23/2025 04/21/2025 Assessment & Plan (04/14/2025 3:07 PM CDT): Follow up labs were ordered. Avoid nonsteroidal anti-inflammatory drugs, avoid dehydration. Assessment & Plan (03/30/2025 12:25 PM CDT): Follow up labs ordered UTI (urinary tract infection) 03/23/2025 04/21/2025 Assessment & Plan (04/02/2025 11:25 AM CDT): Complete abx as ordered. Miconazole cream ordered for fungal rash to perineal area. Edema 03/23/2025 04/02/2025 Acute kidney injury superimp osed on chronic kidney disease 12/09/2024 04/02/2025 Left leg cellulitis 12/03/2024 04/02/20 25 Rectal pain 09/07/2024 04/02/2025 Cellulitis of left leg 08/19/202404/02 Rash 07/22/2024 04/02/2025 Cellulitis of lower extremit y, unspecified laterality 05/08/2023 04/02/2025 COLIN (acute kidney injury) 05/08/2023 Hyperkalemia 05/08/2023 04/02/2025 Sepsis without acute organ dysfunction 05/08/2023 04/02/2025 Cellulitis of right lower extremity 03/20/2023 05/08/2023 Stage 3a chronic kidney disease 07/13/2020 04/02/2025 Assessment & Plan (11/09/2020 6:57 PM URBAN GARDENING SPECIALIST): Impression: Chronic kidney disease which is followed by outside institution maintenance equipment operator. Patient wishes to have 2nd opinion and to combine care at our hospital. Plan: Referral to [facility] [place] for further evaluation of her chronic kidney disease. Other otitis externa, unspecified ear 03/30/2020 04/02/2025 Dyslipidemia 04/27/2019 10/18/2021 Bilateral lower extremity edema 02/19/2019 04/21/2025 Assessment & Plan (11/09/2020 6:56 PM URBAN GARDENING SPECIALIST): Impression: Chronic bilateral lower extremity edema that [...] for management symptoms. Low back pain 02/18/2019 04/21/2025 Pain in both lower extremities 08/18/2018 04/21/2025 Hypertensive heart disease w ith congestive heart failure 11/07/2015 04/21/2025 Overview (12/13/2016): Hypertensive heart disease with diastolic heart failure Dyspnea on exertion 06/20/2015 05/08/20 23 Overview (12/13/2016): BOB (dyspnea on exertion) Hypertensive heart and kidney disease 04/10/2015 04/21/2025 Overview (12/13/2016): Heart failure, unspecified Encounters Date Type Department Care Team Description 04/25/2025 Telephone [facility] Medical Group Post Acute Care [address] [facility] [address] [place] [phone] Penny Parmar MA 04/22/2025 NH/SNF Visit [facility] Medical [facility] Post Acute Care [address] [phone] Yusra Amaro NP Parotitis (Primary Dx); CKD stage 3b, GFR 30-44 ml/min (HCC); Primary hypertension; Chronic heart failure with preserved ejection fraction; Pressure injury of skin of sacral region, unspecified injury stage; Heel sore; Generalized weakness 04/21/2025 Orders Only [facility] [address] [place] [phone] Yusra Amaro NP 04/18/2025 NH/SNF Visit [facility] Medical [facility] Post Acute Care [address] [phone] Yusra Amaro NP Parotitis (Primary Dx); Primary hypertension; Chronic heart failure with preserved ejection fraction; Dysuria; Pressure injury of skin of sacral region, unspecified injury stage; Heel sore; CKD stage 3b, GFR 30-44 ml/min (HCC) 04/18/2025 Orders Only [facility] [address] [place] [phone] Marcos Schultz MD 04/14/2025 NH/SNF Visit [facility] Medical [facility] Post [facility] Care [address] [phone] Marcos Schultz MD Parotitis (Primary Dx); Stage 3b chronic kidney disease (HCC); GWENDOLYN (generalized anxiety disorder); Primary hypertension 04/13/2025 Orders Only [facility] Medical [facility] Post Acute Care [address] [phone] Marcos Schultz MD GWENDOLYN (generalized anxiety disorder) (Primary Dx) 04/13/2025 Orders Only [facility] Medical [facility] Post Acute Care [address] [phone] Marzena Gamez PA GWENDOLYN (generalized anxiety disorder); Arthralgia, unspecified joint 04/08/2025 11:40 AM CDT - 04/13/2025 2:42 PM [place] [address] Luis Perla MD Bondalapati, Manuel Mane MD Sepsis without acute organ dysfunction, due to unspecified organism (HCC) (Primary Dx); Parotitis; Altered mental status, unspecified altered mental status type; Leukocytosis, unspecified type; Facial swelling Discharge Disposition: Discharge to SNF from Last 3 Months Immunizations Immunization Administration [...] attack) Ear problems Anxiety COPD with emphysema Stroke (HCC) Cellulitis Family History Medical History [...] materials from doctor or pharmacy Never 10/22/2024 [facility] Utilities Answer Date Recorded In the past 12 months has th e electric, gas, oil, or water company threatened to shut off services in your home? No 04/11/2025 Social Connection and Isolation Panel Answer Date Recorded In a typical week, how many times do you talk on the phone with family, friends, or neighbors? More than three times a week 04/11/2025 How often do you get togethe r with friends or relatives? More than three times a week 04/11/2025 How often do you attend chur ch or adventism services? Never 04/11/2025 Do you belong to any clubs o r organizations such as druze groups, unions, fraternal or athletic groups, or school groups? Yes 04/11/2025 How often do you attend meet ings of the clubs or organizations you belong to? Never 04/11/2025 Are you , , di vorced, , never , or living with a partner? 04/11/2025 AUDIT-C Answer Date Recorded Q1: How often do you have a drink containing alc ohol? Patient declined 04/08/2025 Q2: How many drinks containi ng alcohol do you have on a typical day when you are drinking? Patient declined 04/08/2025 Q3: How often do you have si x or more drinks on one occasion? Patient declined 04/08/2025 Overall Financial Resource Strain (CARDIA) Answe r Date Recorded How hard is it for you to pa y for the very basics like food, housing, medical care, and heating? Not hard at all 04/11/2025 PHQ-2 Answer Date Recorded PHQ-2 Total Score 4 04/11/2025 Hunger Vital Sign Answer Date Recorded Within the past 12 months, y ou worried that your food would run out before you got the money to buy more. Never true 04/11/20 25 Within the past 12 months, t he food you bought just didn't last and you didn't have money to get more. Never true 04/11/2025 PRAPARE - Transportation Answer Date Re corded In the past 12 months, has l ack of transportation kept you from medical appointments or from getting medications? No 12/2024 In the past 12 months, has l ack of transportation kept you from meetings, work, or from getting things needed for daily living? No 04/11/2025 Housing Stability Vital Sign Answer [place] e [...] place to sleep or slept in a custodial (including now)? No 05/09/2023 PHQ-9 Answer Date Recorded PHQ-9 Total Score 8 03/24/2025 Housing Stability Vital Sign Answer [place] e Recorded In the last 12 months, was t here a time when you were not able to pay the mortgage or rent on time? No 04/11/2025 In the past 12 months, how m any times have you moved where you were living? 1 04/11/2025 At any time in the past 12 m [facility], were you homeless or living in a custodial (including now)? No 04/11/2025 Personal Safety Answer Date Recorded Have you ever been in or are you currently in a harmful physical or emotional relationship or is someone making you feel afraid or unsafe? Denies 04/08/2025 Comments No Sex and Gender Information Value Date Recorded Sex Assigned at Not on file Legal Sex Female 11:52 PM URBAN GARDENING SPECIALIST Gender Identity Not on file Sexual Orientation Not on file Last Filed Vital Signs Vital Sign Reading Time Taken Comments Blood Pressure 159/83 04/22/2025 11:24 AM CDT Pulse 75 04/14/2025 9:19 AM CDT Temperature 37.1 C (98.8 F) 04/13/2025 11:30 AM CDT Respiratory Rate 16 04/14/2025 9:19 AM CDT Oxygen Saturation 94% 04/13/2025 11:30 AM CDT Inhaled Oxygen Concentration - - Weight 101 kg (222 lb 10.6 oz) 04/13/2025 4:48 A M CDT Height 167.6 cm (5' 6) 04/08/2025 5:38 PM CDT Body Mass Index 35.94 04/08/2025 5:38 PM CDT Plan of Treatment Health Maintenance Due Date Last Done Comments Osteoporosis Screening-Bone Density Scan 1935 DTaP/Tdap/Td Vaccine (1 - Tdap) 1946 Hepatitis B Screening 1953 Well Visit 65+ 2000 Zoster Vaccine (2 of 3) 09/22/2015 07/28/2015 Covid-19 Vaccine (4 - 2024-2 6 season) 2025 07/20/2021, 10/30/2020, 10/09/2020 Influenza Vaccine (#1) 2025 , 06/08/2019, 05/25/2019, Additional history exists Depression Screening 04/08/2026 04/08/2025, 03/23/2025, 03/23/2025, Additional history exists Fall Risk Assessment 04/13/2026 04/13/2025 Pneumococcal vaccine 65+ Completed 07/30/2022, 07/09 Procedures Procedure Name Priority Date/Time Associated Diagnosis Comments EGFR Routine 04/21/2025 9:00 AM CDT BASIC METABOLIC PANEL Routine 04/21/2025 9:00 AM CDT EGFR Routine 04/18/2025 5:35 AM CDT COMPREHENSIVE METABOLIC PANEL Routine 04/18/2025 5:35 AM CDT CBC WITHOUT DIFFERENTIAL Routine 04/18/2025 5:35 AM CDT MAGNESIUM Routine 04/13/2025 5:19 AM CDT EGFR Routine 04/13/2025 5:19 AM CDT DIFFERENTIAL AUTO Routine 04/13/2025 5:1 9 AM CDT VANCOMYCIN LEVEL TROUGH Timed 04/13/2025 5:19 AM CDT RENAL FUNCTION PANEL Routine 04/13/2025 5:19 AM CDT CBC WITH AUTO DIFFERENTIAL Routine 04/13/2025 5:19 AM CDT from Last 3 Months Results * (ABNORMAL) eGFR (04/21/2025 9:00 AM CDT) eGFR 29(L) >=60 mL/min/1. 73 m2 [facility] Comment: Interpretive Data Reference Interval Normal >/= [...] Current interpretive data was last reviewed 2021. [facility], [address] [place]., [address] Blood 04/21/2025 9:00 AM CDT 04/21/2025 10:29 AM CDT us Yusra Amaro ELECTRONIC EQUIPMENT TRADES WORKER LAB BLOOD ORDERABLES Final Result [facility] [address] Department [place] [address] * (ABNORMAL) Basic metabolic panel (04/21/2025 9:00 AM CDT) Sodium 136 135 - 145 mmol/L [facility] Comment:[facility], [address] [place]., [address] Potassium, pl 4.3 3.3 - 4.9 mmol/L [facility] Comment:[address] [address] Chloride 97 97 - 110 mmol/L [facility] Comment:[address] [address] CO2 24 22 - 32 mmol/L [facility] Comment:[address] [address] Anion gap 15 2 - 15 mmol/L [facility] Comment:[address] [address] BUN 28(H) 6 - 25 mg/dL [facility] Comment:[address] [address] Creatinine 1.67(H) 0.60 - 1.10 mg/dL [facility] Comment:[address] [address] Glucose 105 70 - 199 mg/dL [facility] [...] Current interpretive data was last revised 2022. [facility], [address] [place] [address]., [address] Calcium 9.8 8.5 - 10.3 mg/dL [facility] Comment:[address] [address] Blood 04/21/2025 9:00 AM CDT 04/21/2025 10:29 AM CDT us Yusra Amaro NP LAB BLOOD ORDERABLES Final Result [facility] [address] Department [place] [address] * (ABNORMAL) eGFR (04/18/2025 5:35 AM CDT) eGFR 29(L) >=60 mL/min/1. 73 m2 [facility] Comment: Interpretive Data Reference Interval Normal >/= [...] Current interpretive data was last reviewed 2021. [facility], [address] [place] [address]., [address] Blood 04/18/2025 5:35 AM CDT 04/18/2025 5:43 AM CDT us Marcos Schultz MD LAB BLOOD ORDERABLES Final R esult [facility] [address] Department [place] [address] * (ABNORMAL) CBC without differential (04/18/2025 5:35 AM CDT) [facility] WBC 9.36 3.80 - 9.90 K/cumm [facility] Comment:[address] [address] Hgb 10.1(L) 11.9 - 15.5 g/dL [facility] Comment:[address] [address] Hct 30.4(L) 35.6 - 45.5 % [facility] Comment:[address] [address] Plt 452(H) 150 - 400 K/cumm [facility] Comment:[address], [address] MPV 9.0(L) 9.1 - 12.3 fL [facility] Comment:[address], [address] RBC 3.65(L) 3.90 - 5.20 M/cumm [facility] Comment:[address], [address] MCV 83.3 81.3 - 96.4 fL [facility] Comment:[address], [address] MCH 27.7 27.1 - 33.3 pg [facility] Comment:[address], [address] MCHC 33.2 32.3 - 35.7 g/dL [facility] Comment:[address], [address] RDW CV 15.9(H) 11.1 - 14.9 % [facility] Comment:[address], [address] RDW SD 47.8 35.7 - 48.1 fL [facility] Comment:[address], [address] NRBC abs 0.00 0.00 - 0.01 K/cumm [facility] Comment:[address], [address] Blood 04/18/2025 5:35 AM CDT 04/18/2025 5:43 AM CDT us Marcos Schultz MD LAB BLOOD ORDERABLES Final R esult [facility] [address] [facility] Department [place] [address] * (ABNORMAL) Comprehensive metabolic panel (04/18/2025 5:35 AM CDT) Sodium 135 135 - 145 mmol/L [facility] Comment:[address], [address] Potassium, pl 4.3 3.3 - 4.9 mmol/L [facility] Comment:[address] [address] Chloride 100 97 - 110 mmol/L [facility] Comment:[address] [address] CO2 26 22 - 32 mmol/L [facility] Comment:[address] [address] Anion gap 9 2 - 15 mmol/L [facility] Comment:[address] [address] BUN 27(H) 6 - 25 mg/dL [facility] Comment:[address] [address] Creatinine 1.67(H) 0.60 - 1.10 mg/dL [facility] [facility] Comment:[address], [address] Glucose 109 70 - 199 mg/dL [facility] Comment: Interpretive Data Fasting glucose >/= 126 [...] Current interpretive data was last revised 2022. [facility], [address] [place]., [address] Calcium 8.9 8.5 - 10.3 mg/dL [facility] Comment:[address] [address] Bilirubin, total 0.2 0.1 - 1.2 mg/dL [facility] Comment:[address] [address] Protein, pl 6.0(L) 6.5 - 8.5 g/dL [facility] Comment:[address] [address] Albumin 3.3(L) 3.5 - 5.0 g/dL [facility] Comment:[address] [address] Alk phos 98 40 - 130 Units/L [facility] Comment:[address] [address] ALT 13 7 - 45 Units/L [facility] Comment:[address] [address] AST 18 10 - 45 Units/L [facility] Comment:[address] [address] Blood 04/18/2025 5:35 AM CDT 04/18/2025 5:43 AM CDT us Marcos Schultz MD LAB BLOOD ORDERABLES Final R esult [facility] [address] [facility] Department [place] [address] * (ABNORMAL) eGFR (04/13/2025 5:19 AM CDT) eGFR 49(L) >=60 mL/min/1. 73 m2 Comment: Interpretive Data [...] Current interpretive data was last reviewed 2021. Blood 04/13/2025 5:19 AM CDT 04/13/2025 6:37 AM CDT us Manuel Lacey MD LAB BLOOD SHUKRI MALDONADO Final Result [facility] [address] [facility] Department [place] [address] * (ABNORMAL) Differential, auto (04/13/2025 5:19 AM CDT) Neutrophil abs 5.69 1.50 - 6.50 K/cumm Imm gran abs 0.33(H) 0.00 - 0.10 K/cumm [facility] Lymphocyte abs 1.18 0.80 - 3.30 K/cumm [facility] Monocyte abs 0.76 0.20 - 0.80 K/cumm [facility] Eosinophil abs 0.20 0.00 - 0.50 K/cumm [facility] Basophil abs 0.05 0.00 - 0.10 K/cumm [facility] Neutrophil pct 69.3 % [facility] Comment: Interpretive Data Percent cell count reference ranges are not reported, since discordance with absolute values may lead to misinterpretation of CBC data. Current Interpretive Data was last revised on 2017. Imm gran pct 4.0 % [facility] Comment: Interpretive Data Percent cell count reference ranges are not reported, since discordance with absolute values may lead to misinterpretation of CBC data. Current Interpretive Data was last revised on 2017. Lymphocyte pct 14.4 % [facility] Comment: Interpretive Data Percent cell count reference ranges are not reported, since discordance with absolute values may lead to misinterpretation of CBC data. Current Interpretive Data was last revised on 2017. Monocyte pct 9.3 % [facility] Comment: Interpretive Data Percent cell count reference ranges are not reported, since discordance with absolute values may lead to misinterpretation of CBC data. Current Interpretive Data was last revised on 2017. Eosinophil pct 2.4 % [facility] Comment: Interpretive Data Percent cell count reference ranges are not reported, since discordance with absolute values may lead to misinterpretation of CBC data. Current Interpretive Data was last revised on 2017. Basophil pct 0.6 % [facility] Comment: Interpretive Data Percent cell count reference ranges are not reported, since discordance with absolute values may lead to misinterpretation of CBC data. Current Interpretive Data was last revised on 2017. Blood 04/13/2025 5:19 AM CDT 04/13/2025 6:37 AM CDT Manuel Lacey MD LAB BLOOD ORDE RABPAYAL Final Result [facility] [address] [place] [address] * (ABNORMAL) CBC with auto differential (04/13/2025 5:19 AM CDT) Pathologist [facility] WBC 8.21 3.80 - 9.90 K/cumm Hgb 10.1(L) 11.9 - 15.5 g/dL [facility] Hct 31.7(L) 35.6 - 45.5 % [facility] Plt 410(H) 150 - 400 K/cumm [facility] MPV 9.3 9.1 - 12.3 fL [facility] RBC 3.72(L) 3.90 - 5.20 M/cumm [facility] MCV 85.2 81.3 - 96.4 fL [facility] MCH 27.2 27.1 - 33.3 pg [facility] MCHC 31.9(L) 32.3 - 35.7 g/dL [facility] RDW CV 14.9 11.1 - 14.9 % [facility] RDW SD 46.4 35.7 - 48.1 fL [facility] NRBC abs 0.00 0.00 - 0.01 K/cumm [facility] Blood 04/13/2025 5:19 AM CDT 04/13/2025 6:37 AM CDT Manuel Lacey MD LAB BLOOD ORDE RABPAYAL Final Result [address] [place] [address] * Magnesium (04/13/2025 5:19 AM CDT) Pathologist [facility] Magnesium 1.8 1.4 - 2.5 mg/dL Blood 04/13/2025 5:19 AM CDT 04/13/2025 6:37 AM CDT Manuel Lacey MD LAB BLOOD ORDE ERICA Final Result Performing Organization Address City/[facility]/ZIP Co de Phone Number [facility] [address] [address] * Vancomycin level trough (04/13/2025 5:19 AM CDT) Pathologist [facility] Vancomycin trough 11.3 10.0 - 20.0 mcg/mL Blood 04/13/2025 5:19 AM CDT 04/13/2025 6:37 AM CDT Manuel Lacey MD LAB BLOOD ORDE ERICA Final Result Performing Organization Address [facility] de Phone Number [address] [address] * (ABNORMAL) Renal function panel (04/13/2025 5:19 AM CDT) [facility] Sodium 139 135 - 145 mmol/L Potassium, pl 3.5 3.3 - 4.9 mmol/L [facility] Chloride 104 97 - 110 mmol/L [facility] CO2 23 22 - 32 mmol/L [facility] Anion gap 12 2 - 15 mmol/L [facility] BUN 13 6 - 25 mg/dL [facility] Creatinine 1.08 0.60 - 1.10 mg/dL [facility] Glucose 106 70 - 199 mg/dL [facility] Comment: Interpretive Data Fasting glucose >/= 126 [...] Current interpretive data was last revised 2022. 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 - Geraldo KOHLI, MORIAH 04/15/25 03/23/2025 03/23/2025 [place] [address] [facility] MEDICARE [facility]ICARE [facility] Advance Directives For more information, please contact: [phone] Documents on File Type Date Recorded Patient Top Carrier Expl anation ADVANCE DIRECTIVE 04/14/2025 10:36 AM POLST - Phys Order for PT Preferences ADVANCE DIRECTIVE 12/13/2024 11:42 AM Livin g Will ADVANCE DIRECTIVE 12/13/2024 11:42 AM Power of Edge Bander Operator-Medical ADVANCE DIRECTIVE 07/26/2024 8:59 AM POLS T - Phys Order for PT Preferences ADVANCE DIRECTIVE 03/26/2023 10:36 AM POLS T - Phys Order for PT Preferences * LIMITED - No CPR (Latest Code Status on File) Date Activated Date Inactivated Comments 04/08/2025 4:38 PM 04/13/2025 6:47 PM Question Answer Comments Provide aggressive medical m anagement before a full cardiopulmonary arrest occurs. Use antibiotics, IV Fluids, and medical treatment unless specifically selected below: No intubation * LIMITED - No CPR Date Activated Date Inactivated Comments 03/23/2025 2:50 PM 03/29/2025 9:47 PM Question Answer Comments Provide aggressive medical m anagement before a full cardiopulmonary arrest occurs. Use antibiotics, IV Fluids, and medical treatment unless specifically selected below: No intubation * LIMITED - No CPR Date Activated Date Inactivated Comments 12/04/2024 1:50 [...] treatment unless specifically selected below: No intubation Care Teams Grain Shipper Relationship Specialty Start Date End Date Irving Montes MD PCP - General Family Medicine 04/27/18
--- OUTSIDE RECORDS SUMMARY | 2025-07-14 15:31 | XMS_ITS | Encounter Summary ---
Author Organization [facility] Address [address] [place] [address] Care Team Providers Care Parachute Accessories Attacher Name Role Phone Unknown, Notinfile Primary Care Provider Unavail Irving Conley MD Primary Care Provider [phone] Encounter Details Date Type Department Care Team (Late st Contact Info) Description 03/27/2018 Orders Only [facility] Information Management [address] [place] [address] Scanning, Provider Social History Tobacco Use Types Packs/Day Years Used Date Smoking Tobacco: Former Alcohol Use Standard Drinks/Week Comments No 0 (1 standard drink = 0.6 oz pur e alcohol) Comments Unknown Sex and Gender Information Value Date Recorded Sex Assigned at Not on file Legal Sex Female 11:52 PM CARD PLACER Gender Identity Not on file Sexual Orientation Not on file documented as of this encounter Plan of Treatment Not on file documented as of this encounter Procedures Procedure Name Priority Date/Time Associated Diagnosis Comments SCAN - LABS 03/27/2018 documented in this encounter Results * SCAN - LABS (03/27/2018) us Provider Scanning Final Result documented in [...] documented as of this encounter Care Teams Parachute Accessories Attacher Relationship Specialty Start Date End Date Unknown, Notinfile PCP - General 09/16/17 04/26/18 Irving Montes MD PCP - General Family Medicine 04/27/18 documented as of this encounter
--- OUTSIDE RECORDS SUMMARY | 2025-07-14 15:32 | XMS_ITS | Encounter Summary ---
Author Organization [facility] Address [address] [place] [address] Care Team Providers Care Radioisotope Production Operator Name Role Phone Unavailable Primary Care Provider Unavailabl e Encounter Details Date Type Department Care Team (Late st Contact Info) Description 08/22/2023 Lab Requisition [facility] - DermPath Lab [address] [facility] [place] [id number] [place] [address] [place] [address] Social History Tobacco Use Types Packs/Day Years Used Date Smoking Tobacco: Never Assessed Comments Unknown Sex and Gender Information Value Date Recorded Sex Assigned at Not on file Legal Sex Female 7:04 AM CIRCULATION SUPERVISOR Gender Identity Not on file Sexual Orientation Not on file documented as of this encounter Plan of Treatment Not on file documented as of this encounter Procedures Procedure Name Priority Date/Time Associated Diagnosis Comments DERMATOPATHOLOGY Routine 08/21/2023 3:33 AM CIRCULATION SUPERVISOR documented in this encounter Results * DERMATOPATHOLOGY (08/21/2023 3:33 AM CIRCULATION SUPERVISOR) Case Report Dermatopathology Report Case: [id number] Authorizing Provider: Jamil Salas MD Collected: 08/21/2023 03:33 AM Ordering Location: [facility] DermPath Lab Received: 08/25/2023 07:09 AM Pathologist: Charlene Yang MD Specimen: Skin, nasal ltip 3 12:08 PM CIRCULATION SUPERVISOR DERMATOPATHOLOGY LABORATORY Final Diagnosis Specimen A. SKIN, nasal tip: DERMAL SCAR RESIDUAL BASAL CELL CARCINOMA NOT IDENTIFIED (L90.5) 3 12:08 PM CIRCULATION SUPERVISOR DERMATOPATHOLOGY LABORATORY at 1208 CIRCULATION SUPERVISOR Clinical History BCC Nodule. Prior Biopsy [id number] 3 12:08 PM [facility] DERMATOPATHOLOGY LABORATORY Gross Description Specimen A: Received is one formalin filled container labeled with the patient's name and designated nasal tip. The specimen consists of a curettage and desiccation biopsy measuring 9x9x2 mm. Jar 0. 3 12:08 PM [facility] DERMATOPATHOLOGY LABORATORY Microscopic Description Specimen A. SKIN, nasal tip: There are fibroblasts and collagen bundles oriented parallel to the skin surface. There are elongated blood vessels, some of which are oriented perpendicular to the skin surface. Abundant hemosiderin is also observed at the base of the fibrosis. No basal cell carcinoma is identified. 3 12:08 PM [facility] DERMATOPATHOLOGY LABORATORY Disclaimer An external and internal positive and negative controls are appropriate for the histochemical, immunohistochemical and immunofluorescence stain(s) in this case (if any), except where stated explicitly. The performance characteristics of the stain(s) cited in this report were developed and its performance characteristic determined by the Dermatopathology Laboratory at [facility], directed by Dr. Anil Willett. These tests need not be, and therefore are not, approved by the [place] Food and Drug Administration. The tests are used for clinical purposes. Billing Codes Specimen Charges Stain Charges 74768 1 3 12:08 PM [facility] DERMATOPATHOLOGY LABORATORY Embedded Images 3 12:08 PM [facility] DERMATOPATHOLOGY LABORATORY Pathology/Cytolo gy TISSUE SPECIMEN FROM SKIN / Unknown 08/21/2023 3:33 AM CIRCULATION SUPERVISOR 08/25/2023 7:09 AM [facility] Jamil Salas MD LAB - PATHOLOGY/CYTOLOGY ORDERAB LES Final Result DERMATOPATHOLOGY LABORATORY [facility] - Department of Dermatology [address] [phone] documented in this encounter Visit Diagnoses Not on filedocumented in this encounter
--- OUTSIDE RECORDS SUMMARY | 2025-07-14 15:32 | XMS_ITS | Clinical Summary ---
Author Organization [facility] Address [address] [place] [address] Phone Care Team Providers Care Transformer Molder Name Role Phone Teddy Vance MD Primary Care Provider [phone] Family History Medical History Relation Name Comments Breast Cancer Neg Hx Cancer Neg Hx Ovarian Cancer Neg Hx Social History Tobacco Use Types Packs/Day Years Used Date Smoking Tobacco: Never Assessed Comments Unknown Sex and Gender Information Value Date Recorded Sex Assigned at Not on file Legal Sex Female 4:27 AM PORTABLE TRACK CREW CHIEF Gender Identity Not on file Sexual Orientation [...] 1-dose 75+ series) 2010 INFLUENZA VACCINE (#1) 2025 Insurance MEDICARE [address] [facility] [employer] Care Teams Transformer Molder Relationship Specialty Start Date End Date Teddy Vance MD [address] [email or web address] [address] [place] [address] PCP - General 09/04/09
--- OUTSIDE RECORDS SUMMARY | 2025-07-14 15:32 | XMS_ITS | Clinical Summary ---
Author Organization [facility] Address [address] [place] [address] Care Team Providers Care Body Finisher Name Role Phone Unavailable Primary Care Provider Unavailabl e Source Comments [facility],non-owned Affiliates and Associated Physician Practices is amultiple site organization consisting of ambulatory clinics and hospital sitesin [place], [place], [place] and [place]. This disclosure is being madepursuant to the Care Everywhere program and may not contain all information available regarding this patient. Last updated 18.[facility] Encounters Date Type Department Care Team Description 06/17/2025 Lab Requisition [facility] [address] [place] [address] Antwon Metcalf DO from Last 3 Months Social History Tobacco Use Types Packs/Day Years Used Date Smoking Tobacco: Never Assessed Comments Unknown Sex and Gender Information Value Date Recorded Sex Assigned at Not on file Legal Sex Female 7:04 AM CNC SERVICE TECHNICIAN Gender Identity Not on file Sexual Orientation [...] yrs (1 - 1-dose 75+ series) 2010 DEPRESSION SCREENING 09/08/2024 COVID-19 VACCINE (2 - 2024- season) 2025 07/20/2021 INFLUENZA VACCINE (#1) 2025 0, 06/08/2019, 05/25/2019, Additional history exists HEPATITIS B [...] on patient's age to complete this topic Procedures Procedure Name Priority Date/Time Associated Diagnosis Comments CBC W AUTO DIFFERENTIAL STAT 06/17/2025 7:56 PM CDT BASIC METABOLIC PANEL (CALCIUM TOTAL) STAT 06/17/2025 7:56 PM CDT from Last 3 Months Results * (ABNORMAL) CBC WITH DIFFERENTIAL (06/17/2025 7:56 PM CDT) WBC 8.4 4.0 - 10.7 x10E9/L 06/17/2025 8:12 PM CDT [facility] RBC Count 3.65(L) 3.90 - 5.20 x10E12/L 06/17/2025 8:12 PM CDT [facility] Hemoglobin 10.1(L) 11.9 - 15.8 g/dL 06/17/2025 8:12 PM CDT [facility] Hematocrit 31.8(L) 34.8 - 46.1 % 06/17/2025 8:12 PM CDT [facility] MCV 87.1 80.0 - 98.0 fL 06/17/2025 8:12 PM CDT [facility] MCH 27.7 26.7 - 33.6 pg 06/17/2025 8:12 PM CDT [facility] MCHC 31.8 31.7 - 36.3 g/dL 06/17/2025 8:12 PM CDT [facility] RDW-CV 14.4 11.3 - 14.8 % 06/17/2025 8:12 PM CDT [facility] Platelet Count 271 150 - 420 x10E9/L 06/17/2025 8:12 PM CDT [facility] MPV 9.3 7.8 - 11.4 fL 06/17/2025 8:12 PM CDT [facility] Neutrophil % 60.9 41.0 - 74.0 % 06/17/2025 8:12 PM CDT [facility] Lymphocyte % 19.0 17.0 - 47.0 % 06/17/2025 8:12 PM CDT [facility] Monocyte % 10.1 3.0 - 11.0 % 06/17/2025 8:12 PM CDT [facility] Eosinophil % 9.1(H) 0.0 - 7.0 % 06/17/2025 8:12 PM CDT [facility] Basophil % 0.5 0.0 - 1.6 % 06/17/2025 8:12 PM CDT [facility] Immature Granulocytes % 0.4 0.0 - 1.0 % 06/17/2025 8:12 PM CDT [facility] Neutrophil Absolute 5.12 1.60 - 7.50 x10E9/L 06/17/2025 8:12 PM CDT [facility] Lymphocyte Absolute 1.59 1.00 - 4.40 x10E9/L 06/17/2025 8:12 PM CDT [facility] Monocyte Absolute 0.85 0.15 - 1.00 x10E9/L 06/17/2025 8:12 PM CDT [facility] Eosinophil Absolute 0.76(H) 0.00 - 0.60 x10E9/L 06/17/2025 8:12 PM CDT [facility] Basophil Absolute 0.04 0.00 - 0.13 x10E9/L 06/17/2025 8:12 PM CDT [facility] Blood BLOOD SPECIMEN / Unknown 06/17/2025 7:56 PM CDT 06/17/2025 7:56 PM CDT us Antwon Metcalf DO LAB - HEMATOLOGY ORDERABLES Theresa l Result [facility] [address] [place] [address] * (ABNORMAL) BASIC METABOLIC PANEL (CALCIUM TOTAL) (06/17/2025 7:56 PM CDT) [facility] Glucose 86 70 - 99 mg/dL 06/17/2025 8:42 PM CDT [facility] Sodium 140 136 - 145 mmol/L 06/17/2025 8:42 PM CDT [facility] Potassium 4.6 3.5 - 5.1 mmol/L 06/17/2025 8:42 PM CDT [facility] Chloride 104 98 - 107 mmol/L 06/17/2025 8:42 PM CDT [facility] CO2 24 22 - 29 mmol/L 06/17/2025 8:42 PM CDT [facility] Calcium 9.7 8.4 - 10.4 mg/dL 06/17/2025 8:42 PM CDT [facility] Anion Gap 12 6 - 16 mmol/L 06/17/2025 8:42 PM CDT [facility] BUN 32(H) 7 - 26 mg/dL 06/17/2025 8:42 PM CDT [facility] Creatinine 1.36(H) 0.50 - 1.20 mg/dL 06/17/2025 8:42 PM CDT [facility] eGFR by CKD-EPI 37(L) >=90 mL/min/1.7 3 m2 06/17/2025 8:42 PM CDT [facility] Comment:Estimated Glomerular Filtration Rate (eGFR) calculated using the CKD-EPI Creatinine Equation (2020), per the National Kidney Foundation and [employer] Society of Nephrology recommendations. Blood BLOOD SPECIMEN / Unknown Venipuncture / Unknown 06/17/2025 7:56 PM CDT 06/17/2025 7:56 PM CDT Antwon Metcalf DO LAB - CHEMISTRY ORDERABLES Final Result Performing Organization Address City/State/[facility] Co de Phone Number [facility] [address] [place] [address] from Last 3 Months Insurance MEDICARE [employer] MEDICARE [facility]
--- OUTSIDE RECORDS SUMMARY | 2025-07-14 15:32 | XMS_ITS | Encounter Summary ---
Author Organization [facility] Address [address] [place] [address] Care Team Providers Care Dance Hall Host/Hostess Name Role Phone Teddy Vance MD Primary Care Provider [phone] Encounter Details Date Type Department Care Team (Latest Contact Info) Description 07/05/2008 Outpatient Historical [facility] ALISE Aquino Jr., Stevenson Miller MD NO ADDRESS ON FILE Other Screening Mammogram Social History Tobacco Use Types Packs/Day Years Used Date Smoking Tobacco: Never Assessed Comments Unknown Sex and Gender Information Value Date Recorded Sex Assigned at Not on file Legal Sex Female 4:27 AM ENGINE BOSS Gender Identity Not on file Sexual Orientation [...] PM CDT Narrative 07/05/2008 8:31 PM CDT [facility] [address] [place], [place] [address] Admit Date: 07/05/2008 ERVIN SEVILLA Sex: F Admit Prov: STEVENSON AQUINO Date: 1935 Primary Care Prov: CMRN: [id number] Room: VIPIN SSN: [id number] IMAGING SERVICES Ordering Prov: STEVENSON AQUINO Accession Number: [id number] Interpretation BILATERAL FULL FIELD DIGITAL SCREENING MAMMOGRAM [...] AMK Procedure Note Dolly Cortes - 07/05/2008 [facility] [address] [place], [place] [address] Admit Date: 07/05/2008 ERVIN SEVILLA Sex: F Admit Prov: STEVENSON AQUINO Date: 1935 Primary Care Prov: CMRN: [id number] [facility] [address] [place] [address] IMAGING SERVICES Ordering Prov: STEVENSON AQUINO Interpretation [...] mammogram documented in this encounter Care Teams Dance Hall Host/Hostess Relationship Specialty Start Date End Date Teddy Vance MD [address] [facility] [address] [place] [address] PCP - General 09/04/09 documented as of this encounter
--- OUTSIDE RECORDS SUMMARY | 2025-07-14 15:32 | XMS_ITS | Patient Health Record ---
Author Organization [facility] Address [address] [place] [phone] Care Team Providers Care Cosmetic Chemist Name Role Phone DR. ROSEY CRANE Primary Care Provider Ariella Wilson Unavailable [phone] Allergies Allergen (clinical drug ingredient) Drug/Non Drug Allergy documented on EMR Reaction Allergy Type Onset Date Status ciprofloxacin Ciprofloxacin Unknown Drug Allergy Active clindamycin Clindamycin Unknown Drug Allergy Act julio codeine Codeine Unknown Drug Allergy Active doxycycline Doxycycline Unknown Drug Allergy Act julio niacin Niacin Unknown Drug Allergy Active Penicillin Unknown Drug Allergy Active Reason For Referral No Information Medications Medication SIG (Take, Route, Frequency, Duration) Notes Start Date End Date Status Atorvastatin Calcium 20 MG Tablet 1 tablet Orally Once a day Active Social History Tobacco Use: Social History Observation Description Date Details (start date - stop date) Former Smoker NA - NA Social History Drug/Alcohol: Social Info Question Answer Notes Drugs Have you used drugs other than those for medical reasons in the past 12 months? No AUDIT-C (Standard) Did you have a drink containing alcohol in the past year? No Points 0 Interpretation Negative Tobacco Use: Social Info Question Answer Notes Tobacco Control (Standard) Tobacco use: Former smoker Problems Problem Type SNOMED Code ICD Code Onset Dates Problem Status W/U Status Risk Notes Problem Chronic anemia (798710994) Anemia in other chronic diseases classified elsewhere (D63.8) Active confirmed Problem Leukocytosis (976106176) Elevated white blood cell count, unspecified (D72.829) Active confirmed Problem Hypothyroidism (45210979) Hypothyroidism, unspecified (E03.9) Active confirmed Problem Protein calorie malnutrition (218564680) Unspecified protein-calorie malnutrition (E46) Active confirmed Problem Morbid obesity (disorder) (785457782) Morbid (severe) obesity due to excess calories (E66.01) Active confirmed Problem Mixed hyperlipidemia (014121057) Mixed hyperlipidemia (E78.2) Active confirmed Problem Recurrent major depression (65008483) Major depressive disorder, recurrent, in remission, unspecified (F33.40) Active confirmed Problem Generalized anxiety disorder (82833697) Generalized anxiety disorder (F41.1) Active confirmed Problem Obstructive sleep apnea syndrome (disorder) (13114250) Obstructive sleep apnea (adult) (pediatric) (G47.33) Active confirmed Problem Hypertensive heart AND chronic kidney disease with congestive heart failure (47784367472361) Hypertensive heart and chronic kidney disease with heart failure and stage 1 through stage 4 chronic kidney disease, or unspecified chronic kidney disease (I13.0) Active confirmed Problem Chronic diastolic heart failure (251608939) Chronic diastolic (congestive) heart failure (I50.32) Active confirmed Problem Carotid artery occlusion (363800455) Occlusion and stenosis of unspecified carotid artery (I65.29) Active confirmed Problem Emphysema (85637226) Emphysema, unspecified (J43.9) Active confirmed Problem Chronic obstructive pulmonary disease (25613063) Chronic obstructive pulmonary disease, unspecified (J44.9) Active confirmed Problem Uncomplicated asthma (disorder) (541060942) Unspecified asthma, uncomplicated (J45.909) Active confirmed Problem Gastro-esophageal reflux disease without esophagitis (193852803) Gastro-esophageal reflux disease without esophagitis (K21.9) Active confirmed Problem Cirrhosis of liver (03737282) Other cirrhosis of liver (K74.69) Active confirmed Problem Osteoarthritis (444396301) Polyosteoarthriti s, unspecified (M15.9) Active confirmed Problem Age-related osteoporosis (082970834) Age-related osteoporosis without current pathological fracture (M81.0) Active confirmed Problem Body mass index 35.00 to 39.99 (261665394537195) Body mass index [BMI] 36.0-36.9, adult (Z68.36) Active confirmed Problem Peripheral vascular disease (832964328) Peripheral vascular disease (I73.9) Active confirmed Problem Chronic kidney disease stage 4 (094977479) Chronic kidney disease, stage IV (severe) (N18.4) Active confirmed Problem Irritable bowel syndrome (84466353) Irritable bowel syndrome, unspecified (K58.9) Active confirmed Problem Other intervertebral disc degeneration, 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) Active confirmed Vital Signs Heart Rate 74 /min 07/13/2025 Temperature 98.7 degrees Fahrenheit 07/13/2025 Respiratory Rate 14 /min 07/13/2025 Oximetry 98 % 07/13/2025 Blood pressure diastolic 70 mm Hg 07/13/2025 Weight-kg 102.51 kg 06/18/2025 Blood pressure systolic 121 mm Hg 07/13/2025 Weight 226 lbs 06/18/2025 Encounters Encounter Location Date Provider Diagnosis [facility] [place] [address] 07/13/2025 Ariella Wilson Candidiasis, unspecified B37.9 ; Left leg cellulitis L03.116 ; Chronic obstructive pulmonary disease, unspecified J44.9 ; Hypothyroidism, unspecified E03.9 and Elevated white blood cell count, unspecified D72.829 [facility] [place] [address] 06/18/2025 ROSEY Mamaherb [facility], [facility]-[address] [place] [address] 07/06/2025 Ariella Wilson Candidiasis, unspecified B37.9 ; Left leg cellulitis L03.116 and Chronic obstructive pulmonary disease, unspecified J44.9 [facility], [facility] [place] [address] 07/08/2025 Ariella Wilson Candidiasis, unspecified B37.9 ; Left leg cellulitis L03.116 and Chronic obstructive pulmonary disease, unspecified J44.9 [facility], [facility] [place] [address] 07/11/2025 Ariella Wilson Candidiasis, unspecified B37.9 ; Left leg cellulitis L03.116 ; Chronic obstructive pulmonary disease, unspecified J44.9 and Hypothyroidism, unspecified E03.9 [facility], [facility] [place] [address] 05/25/2025 [facility] [address] [facility] [place] [address] 05/31/2025 Ariella Wilson [facility] [address] [facility] [place] [address] 05/31/2025 [facility] [place] [address] 06/14/20[facility] [place] [address] 06/21/2025 [facility], [facility] [place] [address] 06/29/2025 [facility], [facility] [address] [facility] [place] [address] 07/02/2025 [facility] [address] [facility] [place] [address] 07/06/2025 [facility] [address] [facility] [place] [address] 07/09/2025 [facility] [place] [address] 07/12/2025 [facility], [facility] [place] [address] 07/14/2025 [facility] Assessments Encounter Date Diagnosis (ICD Code) Assessment Notes Treatment Notes Treatment Clinical Notes Section Notes 07/06/2025 Candidiasis, unspecified (ICD-10 - B37.9) Start Diflucan 150 mg PO q72 h x 2 doses. 07/06/2025 Left leg cellulitis (ICD-10 - L03.116) Ok to remove PICC line related to IV antibiotics being completed. 07/08/2025 Candidiasis, unspecified (ICD-10 - B37.9) Vaginal candidiasis resolved 07/11/2025 Candidiasis, unspecified (ICD-10 - B37.9) Vaginal candidiasis resolved 07/11/2025 Left leg cellulitis (ICD-10 - L03.116) covered with dressing. SWM to see patient today. Continue current medications and treatments. CBC, and BMP to be drawn. Continue following with wound care. 07/13/2025 Candidiasis, unspecified (ICD-10 - B37.9) Vaginal candidiasis resolved 07/13/2025 Left leg cellulitis (ICD-10 - L03.116) SWM to continue to monitor and treat.[facility] nurse practitioner states leg wound healed. Continue current medications and treatments. Continue following with wound care. 07/13/2025 Chronic obstructive pulmonary disease, unspecified (ICD-10 - J44.9) Continue current medication and treatment No sign and symptom of respiratory distress. 07/08/2025 Left leg cellulitis (ICD-10 - L03.116) Dressing intact. Continue to follow with SW as previously directed 07/11/2025 Chronic obstructive pulmonary disease, unspecified (ICD-10 - J44.9) Continue current medication and treatment No sign and symptom of respiratory distress. 07/06/2025 Chronic obstructive pulmonary disease, unspecified (ICD-10 - J44.9) Continue current medication and treatment No sign and symptom of respiratory distress. 07/08/2025 Chronic obstructive pulmonary disease, unspecified (ICD-10 - J44.9) Continue current medication and treatment No sign and symptom of respiratory distress. 07/11/2025 Hypothyroidism, unspecified (ICD-10 - E03.9) TSH and free T4 to be drawn. 07/13/2025 Hypothyroidism, unspecified (ICD-10 - E03.9) TSH and free T4 to be drawn. 07/13/2025 Elevated white blood cell count, unspecified (ICD-10 - D72.829) Urinalysis with culture and sensitivity to be collected.Previo us urinalysis indicated contamination.Co ntinue to encourage increased fluid intake. 07/13/2025 Other Continue current medication and treatment. Follow up in 1 week Educated on plan of care. HIPAA policy reviewed. 07/06/2025 Other Continue curren t treatment plan.Staff to continue to monitor and report any changes.Patient education provided and questions/concer ns addressed.Follow up in one week unless necessary sooner. 07/08/2025 Other Continue current medication and treatment. Follow up in 1 week Educated on plan of care. HIPAA policy reviewed. 07/11/2025 Other Continue current medication and treatment. Follow up in 1 week Educated on plan of care. HIPAA policy reviewed. Plan Of Treatment Future Test Test Name Order Date TSH+Free T4 07/12/2025 Comp. Metabolic Panel (14) 07/12/2025 CBC 07/12/2025 Next Appt Details Provider Name:Ariella Flores rt, 07/15/2025 11:30:00 AM, [address] [facility] [place] , [place], [address], Provider Name:Ariella Flores rt, 07/18/2025 06:45:00 AM, [address] [facility] [place] , [place], [address], Insurance Providers Payer Name Payer Address Payer Phone Subscriber Number Group Number Insured Name Patient Relationship to Insured Coverage Start Date Coverage End Date [employer] of [place] [address] ROSEANNA VAZQUEZ [id number] LayoLucille kaminski Self - patient is the insured [facility] [employer] [facility] [employer] [address] [place] [phone] [id number] Lucille Vasques Self - patient is the insured Medical (General) History Medical History History ICD Code Other intervertebral disc de generation, lumbar region with discogenic back pain and lower extremity pain M51.362 Body mass index [BMI] 36.0-36.9, adult Z 68.36 Chronic obstructive pulmonary disease, u nspecified J44.9 Hypertensive heart and chron ic kidney disease with heart failure and stage 1 through stage 4 chronic kidney disease, or unspecified chronic kidney disease I13.0 Chronic diastolic (congestive) heart justin lure I50.32 Chronic kidney disease, stage IV (severe ) N18.4 Other cirrhosis of liver K74.69 Unspecified protein-calorie malnutrition E46 Emphysema, unspecified J43.9 Hypothyroidism, unspecified E03.9 Mixed hyperlipidemia E78.2 Major depressive disorder, recurrent, in remission, unspecified F33.40 Unspecified asthma, uncomplicated J45.90 9 Morbid (severe) obesity due to excess ca lories E66.01 Irritable bowel syndrome, unspecified K5 8.9 Peripheral vascular disease I73.9 Generalized anxiety disorder F41.1 Occlusion and stenosis of unspecified ca rotid artery I65.29 Anemia in other chronic diseases classif ied elsewhere D63.8 Obstructive sleep apnea (adult) (pediatr ic) G47.33 Gastro-esophageal reflux disease without esophagitis K21.9 Polyosteoarthritis, unspecified M15.9 Age-related osteoporosis without current pathological fracture M81.0 Surgical History Surgery Date(Month/Year) BLADDER SURGERY TOTAL HIP ARTHROPLASTY
--- OUTSIDE RECORDS SUMMARY | 2025-07-14 15:32 | XMS_ITS | Data Portability ---
Author Organization [facility], Main Office Address [address] [place] [address] Care Team Providers Care Medical Technologist Microbiology Name Role Phone [facility] FAX OTHER JORGE L MONTES Primary Care Provider Assessment Encounter Date Assessment Date Assessment LastModified by Organization Details LastModified Time 05/10/2025 05/10/2025 Resume Bumex at reduced dose of 0.5 mg daily. Titrate up as appropriate, previous dosing was 2 mg daily. Labs on 05/12. Monitor HRs & BPs. Not available 05/10/2025 15:12:03 05/12/2025 05/12/2025 Titrate Bumex up as appropriate, previous dosing was 2 mg daily. Not available 05/12/2025 19:19:42 05/16/2025 05/16/2025 Increase Bumex to 1 mg daily. Labs on 05/19, to be faxed to Dr. Gutierrez. [email or web address] Not available 05/16/2025 16:58:31 05/18/2025 05/18/2025 keflex 500 mg BID x 7 days [email or web address] Not available 05/18/2025 22:35:29 05/20/2025 05/20/2025 Pt will d/c to [facility] in [place], [place] on 05/23. Not available 05/20/2025 16:37:00 Plan of Treatment Reminders Order Date Submit Date Provider Last Modified By Organization Details Last Modified Time Details Appointments None record ed. Lab None record ed. Referral None record ed. Procedures None record ed. Surgeries None record ed. Imaging None record ed. Medication Orders None record ed. Patient TargetsNo targets recorded. Patient Instructions Encounter Date Encounter Id Patient Instructions Last Modified By Organization Details Last Modified Time 05/10/2025 [id number] I spent 36 minutes providing care to the patient today. More than 50% of that time was spent in discussing the expected course of the disease, discussing prognosis, coordinating care and counseling of the patient/family. Not available 05/10/2025 15:13:17 05/12/2025 [id number] I spent 37 minutes providing care to the patient today. More than 50% of that time was spent in discussing the expected course of the disease, discussing prognosis, coordinating care and counseling of the patient/family. Not available 05/12/2025 19:20:18 05/16/2025 [id number] I spent 37 minutes providing care to the patient today. More than 50% of that time was spent in discussing the expected course of the disease, discussing prognosis, coordinating care and counseling of the patient/family. Not available 05/16/2025 17:00:35 05/18/2025 [id number] I spent 30 minutes providing care to the patient today. More than 50% of that time was spent in discussing the expected course of the disease, discussing prognosis, coordinating care and counseling of the patient/family. [email or web address] Not available 05/20/2025 06:58:05 05/20/2025 [id number] I spent 36 minutes providing care to the patient today. More than 50% of that time was spent in discussing the expected course of the disease, discussing prognosis, coordinating care and counseling of the patient/family. Not available 05/20/2025 16:38:34 Reason for Referral None Reported. Results Created Date Observation Date Name Description Value Unit Range Abnormal Flag Note LastModifiedBy Organization Detail LastModifiedTime Result Notes None recorded. Procedures Surgical History Date Name Laterality Status Provider Name and Address Organization Details Recorded Time Tonsillectomy completed Nikki Carlos [facility] 04/29/2025 15:38:19 arthroscopy of knee completed Nikki Carlos [facility] 04/29/2025 15:39:01 operation [place] [address] [place], [address], [facility] 04/29/2025 17:10:16 replacement of bilateral [place] [address] [address] [facility], [place], [address], [facility] 04/29/2025 17:10:34 [place] [address] [address] [facility], [place], [address], [facility] 04/29/2025 17:10:42 extraction [place] [address] [address] [facility], [place], [address], [facility] 04/29/2025 17:10:49 Imaging Results None recorded. Procedure Notes None recorded. Medical Equipment None Reported. Allergies Allergen ID Allergen Name Allergen Category Reaction Reaction Severity Criticality Documentation Date Start Date Code Code System Note Provider Name and Address Organization Details Recorded Time 56095 Product containin g penicilli n (product) medicatio n rash Not available Not available 04/29/2025 98869 8001 SNOMED Nikki Carlos null, [facility] 15:13:51 29495 niacin medicatio n Not available Not available Not available 04/29/2025 7393 RxNorm Leydi Oliver NP [address] [place], [place] [address] [place], [address], [facility] 16:17:46 91212 codeine medicatio n Not available Not available Not available 04/29/2025 2670 [place] [address] [place], [address], [facility] 16:17:52 52310 ciproflox acin medicatio n Not available Not available Not available 04/29/2025 2551 RxNorm Leydi Oliver NP [address] [place], [place] [address] [place], [address], [facility] 16:17:58 97918 clindamyc in Not available nausea Not available Not available 04/30/2025 2582 RxNorm Leydi Oliver NP [address] [place] [address], [address], [facility] 5 10:58:19 15156 doxycycli ne Not available hives Not available Not available 04/30/2025 3640 RxNorm Leydi Oliver, RUBY [address] [place], [address], [facility] 5 10:58:34 Medications Name Sig Start Date Stop Date Status Note LastModified by Organization Details LastModified Time hydralazine 10 mg tablet Take 1 tablet 3 times a day by oral route as needed. active Not Available Not Available No t Available atorvastati n 20 mg tablet Take 1 tablet every day by oral route. active Not Available Not Available No t Available ipratropium 0.5 mg-albutero l 3 mg (2.5 mg base)/3 mL nebulizatio n soln Inhale 3 mL twice a day by nebulizat ion route as needed. active Not Available Not Available No t Available albuterol sulfate 2.5 mg/3 mL (0.083 %) solution for nebulizatio n Inhale 3 mL every 4 hours by nebulizat ion route as needed. 05/03 completed Not Available Not Available Not Available alprazolam 1 mg tablet Take 1 tablet 4 times a day by oral route. 2024 active Not Available Not Available Not Avai lable clopidogrel 75 mg tablet Take 1 tablet every day by oral route. active Not Available Not Available No t Available amlodipine 5 mg tablet Take 1 tablet every day by oral route. active Not Available Not Available No t Available tramadol 50 mg tablet Take 1 tablet every 6 hours by oral route as needed. active Not Available Not Available No t Available acetaminoph en 500 mg tablet Take 1 tablet every 6 hours by oral route as needed. active Not Available Not Available No t Available spironolact one 25 mg tablet Take 1 tablet every day by oral route. active Not Available Not Available No t Available levothyroxi ne 75 mcg tablet Take 1 tablet every day by oral route. active Not Available Not Available No t Available econazole nitrate 1 % topical cream Apply 1 applicati on twice a day by topical route. active Not Available Not Available No t Available esomeprazol e magnesium 40 mg capsule,del ayed release Take 1 capsule every day by oral route. active Not Available Not Available No t Available bumetanide 0.5 mg tablet Take 1 tablet every day by oral route. 05/16 completed Not Available Not Available Not Available Keflex 500 mg tablet Take 1 capsule twice a day by oral route for 7 days. 2024 active Not Available Not Available Not Avai lable budesonide 0.5 mg/2 mL suspension for nebulizatio n Inhale 2 mL twice a day by nebulizat ion route as needed. active Not Available Not Available No t Available cephalexin 500 mg tablet Take 1 tablet twice a day by oral route for 7 days. active Stop Date: 05/26 Not Available Not Available Not Available bumetanide 1 mg tablet Take 1 tablet every day by oral route. active Not Available Not Available No t Available montelukast 10 mg tablet Take 1 tablet every day by oral route. active Not Available Not Available No t Available irbesartan 150 mg tablet Take 1 tablet every day by oral route. active Not Available Not Available No t Available albuterol sulfate HFA 90 mcg/actuati on aerosol inhaler Inhale 2 puffs every 4 hours by inhalatio n route as needed. active Not Available Not Available No t Available ondansetron 4 mg disintegrat ing tablet Place 1 tablet every day by transling ual route as needed. active Not Available Not Available No t Available calcitriol 0.25 mcg capsule Take 1 capsule 3 times a week by oral route. active Not Available Not Available No t Available escitalopra m 10 mg tablet Take 1 tablet every day by oral route. active Not Available Not Available No t Available Thera-M 27 mg-0.4 mg tablet Take 1 tablet every day by oral route. active Not Available Not Available No t Available white petrolatum 42 % topical ointment Apply 1 applicati on every day by topical route as needed. 05/10 completed Not Available Not Available Not Available Asmanex HFA 100 mcg/actuati on aerosol inhaler Inhale 1 puff every day by inhalatio n route. 05/03 completed Not Available Not Available Not Available Vitals Date Recorded Body height Heart rate Body temperature Respiratory rate Oxygen saturation Oxygen saturation in Arterial blood by Pulse oximetry Body mass index (BMI) Body weight Systolic And Diastolic Provider Name and Address Organization Details Last Updated DateTime 5 167.64 cm 87 /min 97.7 [degF] 18 /min 98 % 98 % 36.9 kg/m2 392534. 22 g 156/76 mm[Hg] [place] [address] [place], [address], [facility] 5 10:33:49 Date Recorded Body height Heart rate Body temperature Respiratory rate Oxygen saturation Oxygen saturation in Arterial blood by Pulse oximetry Body mass index (BMI) Body weight Systolic And Diastolic Provider Name and Address Organization Details Last Updated DateTime 5 167.64 cm 90 /min 98 [degF] 20 /min 98 % 98 % 37.1 kg/m2 774466. 81 g 126/76 mm[Hg] [place] [address] [place], [address], [facility] 5 15:52:18 Date Recorded Body height Heart rate Body temperature Respiratory rate Oxygen saturation Oxygen saturation in Arterial blood by Pulse oximetry Body mass index (BMI) Body weight Systolic And Diastolic Provider Name and Address Organization Details Last Updated DateTime 5 167.64 cm 61 /min 97.5 [degF] 18 /min 98 % 98 % 37.7 kg/m2 533256. 9 g 119/71 mm[Hg] [place] [address] [place], [address], [facility] 5 16:44:06 Date Recorded Body height Heart rate Body temperature Respiratory rate Oxygen saturation Oxygen saturation in Arterial blood by Pulse oximetry Body mass index (BMI) Body weight Systolic And Diastolic Provider Name and Address Organization Details Last Updated DateTime 5 167.64 cm 79 /min 97.7 [degF] 18 /min 98 % 98 % 37.7 kg/m2 273766. 46 g 160/63 mm[Hg] [place] [address] [place], [address], [facility] 5 13:39:24 Date Recorded Heart rate Body temperature Respiratory rate Oxygen saturation Oxygen saturation in Arterial blood by Pulse oximetry Body weight Body mass index (BMI) Body height Systolic And Diastolic Provider Name and Address Organization Details Last Updated DateTime 5 90 /min 97.6 [degF] 18 /min 97 % 97 % 719466. 46 g 37.7 kg/m2 167.64 cm 160/63 mm[Hg] [place] [address] [place], [address], [place] [facility] 5 06:42:38 Date Recorded Body height Provider Name an d Address Organization Details Last Updated DateTime 05/19/2025 167.64 cm Leydi kaminski, [employer] [address] [place], [address], [place] [facility] 05/19/2025 10:45:21 Date Recorded Body height Heart rate Body temperature Respiratory rate Oxygen saturation Oxygen saturation in Arterial blood by Pulse oximetry Body mass index (BMI) Body weight Systolic And Diastolic Provider Name and Address Organization Details Last Updated DateTime 5 167.64 cm 96 /min 97.3 [degF] 17 /min 94 % 94 % 37.7 kg/m2 826590. 18 g 157/69 mm[Hg] Leydi Oliver, [employer] [address] [place], [address], [place] [facility] 09:44:55 Social History Question Answer Notes LastModified by Organizat ion Details LastModified Time Tobacco Smoking Status Former Smoker Nikki Carlos toñito, [facility] 04/29/2025 15:42:23 What Is Your Code Status? DNR/DNI Information not available 04/29/2025 When Did You Quit Smoking? 16+yearssinc elastcigaret te Information not available 04/29/2025 What Was The Date Of Your Most Recent Tobacco Screening? 04/29/2025 Information not available 04/29/2025 What Is Your Relationship Status? Information not available 04/29/2025 Sex: Unknown Functional Status Question Answer Note LastModified by Organizat ion Details LastModified Time How many times per week do you consume alcohol? Less than 1 time per week Information not available 04/29/2025 Do you use any illicit or recreational drugs? No Information not available 04/29/2025 What is your level of alcohol consumption? Occasional Information not available 04/29/2025 Mental Status None recorded. Family History Relationship Description Onset Age of this Age Resolved Age Notes LastModified by Organization Details LastModified Time Mother Suicide [email or web address] Not available 0 04/29/2025 15:40:09 Medical History Condition Response Psychiatric -- Anxiety Disorder Y Osteoarthritis / DJD Y Spinal Stenosis Y Psychiatric -- Depression Y COPD Y Transient ischemic attack (TIA) Y Anemia Y GI Bleed Y Carotid Stenosis Y Vitamin B12 Deficiency Y Peripheral Vascular Disease (PVD) Y Osteoporosis / Osteopenia Y Diabetes Y Deep Vein Thrombosis (DVT) Y Chronic Kidney Disease (CKD) Y Congestive Heart Failure (CHF) Y Hyperlipidemia Y Insomnia Y Asthma Y Irritable bowel syndrome (IBS) Y Vitamin D Deficiency Y GERD / Reflux Y Liver Disease Y Sleep Apnea / ZACHARY Y Hypertension Y Gynecological HistoryNo gynecological history recorded. Obstetrics History GPAL:G 0 P 0 0 0 0 Past Encounters Encounter ID Performer Location Encounter Start Date Encounter Closed Date Diagnosis/Indication Diagnosis SNOMED-CT Code Diagnosis ICD10 Code Diagnosis IMO Codes Diagnosis Note [id number] Jadyn Hopper, [address] [address] 04/29/2025 14:44:43 05/09/2025 09:01:56 Lumbar spondylosis 189354617 M47.816 [id number] SEE ABOVE... Mixed hyperlipidemia 267 852514 E78.2 11210 Presumed stable. Continue Atorvastat in. Carotid ar sandra stenosis 60338233 I65.29 [id number] Oct 2024 carotid doppler = Left ICA moderate 50-69% stenosis. Low flow throughout the right carotid system. Possible distal right ICA occlusion. Treating supportive ly with Plavix, Statin, and good BP control.F/ U with Dr. Los Escobar (vascular) on 11/24/25. History of transient ischemic attack 477689178 Z86.73 8309618 Details unclear.Co ntinue good BP control, statin, & Plavix. Peripheral vascular disease 335551443 I73.9 [id number] March 2025 arterial doppler non-compre ssible consistent with arterial calcificat ions but unable to obtain RAFA as a result. However, waveforms were suggestiv e of no significan t stenosis. Venous dopplers negative for DVT.Treati ng supportive ly with Plavix, Statin, diuretics, and good BP control.Co ntinue Econazole cream to BLE routinely. F/U with Dr. Los Escobar (vascular) on 11/24/25. Stasis dermatitis 743007 05 I87.2 31179 SEE ABOVE... History of deep vein thrombosis 974464474 Z86.265 6207133 Details unclear. Last venous doppler in March 2025 was negative for BLE DVTs. Primary hypothyroidism 50252604 E03.9 10432 Presumed stable. Aug 2024 TSH 2.01. No Free T4 available. Continue Levothyrox ine and consider checking thyroid panel during her stay. Pulmonary emphysema 8743 3001 J43.9 [id number] Presumed stable. No recent flares of COPD/Asthm a per pt.Continu e Asmanex, Montelukas t, q4hour Albuterol (confirms she uses it this was as OP), and PRN albuterol nebulizer. Respirator y status is stable on RA at present.Do es not follow routinely with a pulmonolog ist. Uncomplicated asthma 707 410833 J45.909 [id number] SEE ABOVE... Obstructiv e sleep apnea syndrome 54511911 G47.33 956250 Need to verify use of CPAP. History of gastrointestinal disease 568579949 Z87.19 72736742 Details unclear.SE E ABOVE... Cirrhosis of liver 007 K74.60 3655740323 Details unclear.SE E ABOVE... Degenerati on of lumbar intervertebral disc 73019556 M51.362 6337203730 Stable. Continue PRN APAP & Tramadol.C ontinue therapies for BLE weakness. Osteoporosis 53716824 M8 1.0 04271199 Presumed stable. Continue Calcitriol . Generalize d anxiety disorder 96349462 F41.1 818156 Stable at present. Continue Escitalopr am & routine Xanax.As pt is on long-term Xanax for respirator y/dyspnea- related anxiety, will not attempt dose reduction at this point as good impede progress with therapy. Recurrent major depression in remission 77110987 F33.40 59069539 SEE ABOVE... Primary insomnia 1783849 F51.01 29672 SEE ABOVE... Irritable bowel syndrome 32257266 K58.9 92692147 SEE ABOVE... Hiatal her terry with gastroesophageal reflux 409450406 K44.9 K21.9 8899706 Stable without current concerns. Continue Esomeprazo le. Vitamin D deficiency 347 44314 E55.9 48619 Presumed stable. Continue Calcitriol . Not for resuscitation 30 6978601 Z66 841449 Pt is DNR with comfort measures. Confirmed today. She does not want heroic measures and recognizes that her frequent recent hospitaliz ations have not been overly helpful to her in regards to improving her quality of life. Physical deconditioning 6525028283 9102 R53.81 666177 Related to age, recent inpatient stay, and multiple comorbidit ies. Continue PT/OT and monitor progress. Goal is for pt to transition to either LTC or NURSING HOME at this facility, depending on her care needs at the completion of her rehab stay. Hypertensi ve heart AND chronic kidney disease stage 3 0077578367 9100 I13.0 I50.32 N18.32 [id number] 03/30 TTE -- Normal LV size and systolic function. Moderate concentric LVH. Impaired diastolic relaxation Grade I. EF 60-65 %. Mild enlargemen t of left atrium. Mild mitral valve regurgitat ion. NSR. Her OP regimen Bumex 2 mg daily and Spironolac tone 25 mg daily.Due to above concern for dehydratio n, Bumex remains on hold. Spironolac tone continues at OP dosing.Con tinue Spironolac tone, Amlodipine , Irbesartan , and PRN Hydralazin e.SEE ABOVE regarding COLIN. It appears baseline Cr is 1.3-1.5.Hi storical Weights:De c 2023 = 240 lbApr 2024 = 241 lbMay 2024 = 230 lbJuly 2024 = 239-246 lbsAug 202 = 218-222 lbsContinu e to trend blood pressures, weights, edema, monitor lytes and renal function, and adjust meds as clinically indicated. F/U with Dr. Luis Gasca (cards) on 07/07/25. Spinal robert nosis of lumbar region 22080889 M48.061 [id number] SEE ABOVE... Dehydration 96460958 E86 .0 9786 SEE ABOVE... Acute kidney injury 1466 9001 N17.9 858001 CKD-3B with renal artery stenosis.R [facility] EHR, Cr has fluctuated widely but appears baseline is Cr 1.3-1.5.Bu caterina 2 mg daily is presently on hold. Does continue on Spironolac tone.Trend weights & labs closely.F/ U with Dr. Gutierrez (nephrolog y) as directed. Unclear if appt is scheduled. Impaired f asting glycemia 329709183 R73.01 177795 Aug 2024 HgA1c 6.2%.Niranjan nue PRN blood sugars. Encourage LCS diet. Generalize d osteoarthritis 945130942 M15.9 1453 SEE ABOVE... Anemia of chronic disease 117411650 D63.8 022753 Hgb trended 10-11s.Rec ent Vit B12 & Folate.Iro n 48, TIBC 299, Trans Sat 16. Could consider oral supplement ation.Vagu e history of GIB -- monitor for S&S of bleeding. None at present.Co ntinue to trend closely. [id number] Jadyn Hopper DO [address] [address] 05/01/2025 22:38:24 05/09/2025 09:03:43 Acute kidney injury 42405836 N17.9 310769 CKD-3B with renal artery stenosis.R [facility] EHR, Cr has fluctuated widely but appears baseline is Cr 1.3-1.5.Bu caterina 2 mg daily is presently on hold. Does continue on Spironolac tone.Trend weights & labs closely.F/ U with Dr. Gutierrez (nephrolog y) as directed. Unclear if appt is scheduled. Dehydration 26142710 E86 .0 9786 SEE ABOVE... Hypertensi ve heart AND chronic kidney disease stage 3 0273246932 9100 I13.0 I50.32 N18.32 1410072815 03/30 TTE -- Normal LV size and systolic function. Moderate concentric LVH. Impaired diastolic relaxation Grade I. EF 60-65 %. Mild enlargemen t of left atrium. Mild mitral valve regurgitat ion. NSR. Her OP regimen Bumex 2 mg daily and Spironolac tone 25 mg daily.Due to above concern for dehydratio n, Bumex remains on hold. Spironolac tone continues at OP dosing.Con tinue Spironolac tone, Amlodipine , Irbesartan , and PRN Hydralazin e.SEE ABOVE regarding COLIN. It appears baseline Cr is 1.3-1.5.Hi storical Weights:De c 2023 = 240 lbApr 2024 = 241 lbMay 2024 = 230 lbJuly 2024 = 239-246 lbsAug 2024 = 218-222 lbsContinu e to trend blood pressures, weights, edema, monitor lytes and renal function, and adjust meds as clinically indicated. F/U with Dr. Luis Gasca (cards) on 07/07/25. Mixed hyperlipidemia 267 898817 E78.2 42727 Presumed stable. Continue Atorvastat in. Carotid ar sandra stenosis 71066769 I65.29 [id number] Oct 2024 carotid doppler = Left ICA moderate 50-69% stenosis. Low flow throughout the right carotid system. Possible distal right ICA occlusion. Treating supportive ly with Plavix, Statin, and good BP control.F/ U with Dr. Los Escobar (vascular) on 11/24/25. Peripheral vascular disease 341845452 I73.9 00783 March 2025 arterial doppler non-compre ssible consistent with arterial calcificat ions but unable to obtain RAFA as a result. However, waveforms were suggestiv e of no significan t stenosis. Venous dopplers negative for DVT.Treati ng supportive ly with Plavix, Statin, diuretics, and good BP control.Co ntinue Econazole cream to BLE routinely. F/U with Dr. Los Escobar (vascular) on 11/24/25. Stasis dermatitis 139341 05 I87.2 48750 SEE ABOVE... Primary hypothyroidism 47563803 E03.9 48205 Presumed stable. Aug 2024 TSH 2.01. No Free T4 available. Continue Levothyrox ine and consider checking thyroid panel during her stay. Pulmonary emphysema 8743 3001 J43.9 644466152 Presumed stable. No recent flares of COPD/Asthm a per pt.Continu e Asmanex, Montelukas t, q4hour Albutero and PRN albuterol nebulizer. Respirator y status is stable on RA at present.Do es not follow routinely with a pulmonolog ist. Uncomplicated asthma 837 152397 J45.909 5761850159 SEE ABOVE... Obstructiv e sleep apnea syndrome 60847145 G47.33 916875 Need to verify use of CPAP. Degenerati on of lumbar intervertebral disc 36992251 M51.362 7427431829 Stable. Continue PRN APAP & Tramadol.C ontinue therapies for BLE weakness. Spinal robert nosis of lumbar region 39663180 M48.061 [id number] SEE ABOVE... Lumbar spondylosis 51672 0009 M47.816 61728 SEE ABOVE... Generalize d osteoarthritis 061841709 M15.9 1453 SEE ABOVE... Osteoporosis 12838203 M8 1.0 53039992 Presumed stable. Continue Calcitriol . Anemia of chronic disease 611957271 D63.8 451206 Hgb trended 10-11s.Rec ent Vit B12 & Folate.Iro n 48, TIBC 299, Trans Sat 16. Could consider oral supplement ation.Vagu e history of GIB -- monitor for S&S of bleeding. None at present.Co ntinue to trend closely. Generalize d anxiety disorder 10617635 F41.1 865209 Stable at present. Continue Escitalopr am & routine Xanax.As pt is on long-term Xanax for respirator y/dyspnea- related anxiety, will not attempt dose reduction at this point as could impede progress with therapy. Recurrent major depression in remission 71447769 F33.40 42147293 SEE ABOVE... Primary insomnia 5136514 F51.01 40568 SEE ABOVE... Hiatal her terry with gastroesophageal reflux 959014475 K44.9 K21.9 0646647 Stable without current concerns. Continue Esomeprazo le. Irritable bowel syndrome 27926214 K58.9 [id number] SEE ABOVE... Cirrhosis of liver K74.60 0243727685 Details unclear.SE E ABOVE... History of gastrointestinal disease 126058064 Z87.19 39176555 Details unclear.SE E ABOVE... Vitamin D deficiency 347 16580 E55.9 16789 Presumed stable. Continue Calcitriol . Impaired f asting glycemia 716693494 R73.01 871562 Aug 2024 HgA1c 6.2%.Niranjan nue PRN blood sugars. Encourage LCS diet. History of deep vein thrombosis 288911891 Z86.364 4114667 Details unclear. Last venous doppler in March 2025 was negative for BLE DVTs. History of transient ischemic attack 917673051 Z86.73 7732565 Details unclear.Co ntinue good BP control, statin, & Plavix. Physical deconditioning 1730050884 9102 R53.81 291835 Related to age, recent inpatient stay, and multiple comorbidit ies. Continue PT/OT and monitor progress. Goal is for pt to transition to either LTC or BRIDGETT at this facility, depending on her care needs at the completion of her rehab stay. [id number] Jadyn Hopper, [facility] [address] [place] [address] 05/03/2025 13:11:26 05/09/2025 09:02:35 Acute kidney injury [id number] N17.9 431076 CKD-3B with renal artery stenosis.R tomiiewed [facility] EHR, Cr has fluctuated widely but appears baseline is Cr 1.3-1.5.Bu caterina 2 mg daily is presently on hold. Does continue on Spironolac tone.Trend weights & labs closely.F/ U with Dr. Gutierrez (nephrolog y) as directed. Unclear if appt is scheduled. Dehydration 90920635 E86 .0 9786 SEE ABOVE... Hypertensi ve heart AND chronic kidney disease stage 3 [id number] 9100 I13.0 I50.32 N18.32 [id number] 03/30 TTE -- Normal LV size and systolic function. Moderate concentric LVH. Impaired diastolic relaxation Grade I. EF 60-65 %. Mild enlargemen t of left atrium. Mild mitral valve regurgitat ion. NSR. Her OP regimen Bumex 2 mg daily and Spironolac tone 25 mg daily.Due to above concern for dehydratio n, Bumex remains on hold. Spironolac tone continues at OP dosing.Con tinue Spironolac tone, Amlodipine , Irbesartan , and PRN Hydralazin e.SEE ABOVE regarding COLIN. It appears baseline Cr is 1.3-1.5.Hi storical Weights:De c 2023 = 240 lbApr 2024 = 241 lbMay 2024 = 230 lbJuly 2024 = 239-246 lbsAug 2024 = 218-222 lbsContinu e to trend blood pressures, weights, edema, monitor lytes and renal function, and adjust meds as clinically indicated. F/U with Dr. Luis Gasca (cards) on 07/07/25. Mixed hyperlipidemia 267 431286 E78.2 81168 Presumed stable. Continue Atorvastat in. Carotid ar sandra stenosis 64724816 I65.29 10193880 Oct 2024 carotid doppler = Left ICA moderate 50-69% stenosis. Low flow throughout the right carotid system. Possible distal right ICA occlusion. Treating supportive ly with Plavix, Statin, and good BP control.F/ U with Dr. Los Escobar (vascular) on 11/24/25. Peripheral vascular disease 928457443 I73.9 73600 March 2025 arterial doppler non-compre ssible consistent with arterial calcificat ions but unable to obtain RAFA as a result. However, waveforms were suggestiv e of no significan t stenosis. Venous dopplers negative for DVT.Treati ng supportive ly with Plavix, Statin, diuretics, and good BP control.Co ntinue Econazole cream to BLE routinely. F/U with Dr. Los Escobar (vascular) on 11/24/25. Stasis dermatitis 100324 05 I87.2 83704 SEE ABOVE... Primary hypothyroidism 30623528 E03.9 15725 Presumed stable. Aug 2024 TSH 2.01. No Free T4 available. Continue Levothyrox ine and consider checking thyroid panel during her stay. Pulmonary emphysema 8743 3001 J43.9 525473190 Presumed stable. No recent flares of COPD/Asthm a per pt. Pt reports she was not using Asmanex as OP as it did not work. Pt appears to be more compliant with nebulizers .D/C Albuterol neb.Add Duonebs TID while awake.Ross ge Albuterol inhaler to q4hrs PRN.Add Budesonide nebs BID.Contin ue Montelukas t.Respirat ory status is stable on RA at present.Do es not follow routinely with a pulmonolog ist. Uncomplicated asthma 707 915246 J45.909 1161115444 SEE ABOVE... Obstructiv e sleep apnea syndrome 10467788 G47.33 794332 Need to verify use of CPAP. Degenerati on of lumbar intervertebral disc 02186169 M51.362 9125435185 Stable. Continue PRN APAP & Tramadol.C ontinue therapies for BLE weakness. Spinal robert nosis of lumbar region 66298185 M48.061 2396788022 SEE ABOVE... Lumbar spondylosis 65192 0009 M47.816 37752 SEE ABOVE... Generalize d osteoarthritis 159594382 M15.9 1453 SEE ABOVE... Osteoporosis 66417173 M8 1.0 58798103 Presumed stable. Continue Calcitriol . Anemia of chronic disease 900182238 D63.8 671439 Hgb trended 10-11s.Rec ent Vit B12 & Folate.Iro n 48, TIBC 299, Trans Sat 16. Could consider oral supplement ation.Vagu e history of GIB -- monitor for S&S of bleeding. None at present.Co ntinue to trend closely. Generalize d anxiety disorder 46767224 F41.1 966804 Stable at present. Continue Escitalopr am & routine Xanax.As pt is on long-term Xanax for respirator y/dyspnea- related anxiety, will not attempt dose reduction at this point as could impede progress with therapy. Recurrent major depression in remission 38381763 F33.40 15103086 SEE ABOVE... Primary insomnia 8177565 F51.01 64332 SEE ABOVE... Hiatal her terry with gastroesophageal reflux 112442999 K44.9 K21.9 6931048 Stable without current concerns. Continue Esomeprazo le. Irritable bowel syndrome 60336823 K58.9 70009794 SEE ABOVE... Cirrhosis of liver K74.60 1931400076 Details unclear.SE E ABOVE... History of gastrointestinal disease 001120578 Z87.19 33542450 Details unclear.SE E ABOVE... Vitamin D deficiency 347 89576 E55.9 14433 Presumed stable. Continue Calcitriol . Impaired f asting glycemia 634029875 R73.01 304023 Aug 2024 HgA1c 6.2%.Niranjan nue PRN blood sugars. Encourage LCS diet. History of deep vein thrombosis 244891934 Z86.576 3847027 Details unclear. Last venous doppler in March 2025 was negative for BLE DVTs. History of transient ischemic attack 560843752 Z86.73 3230148 Details unclear.Co ntinue good BP control, statin, & Plavix. Physical deconditioning 3413528226 9102 R53.81 037448 Related to age, recent inpatient stay, and multiple comorbidit ies. Continue PT/OT and monitor progress. Goal is for pt to transition to either LTC or NURSING HOME at this facility, depending on her care needs at the completion of her rehab stay. [id number] Jadyn Hopper DO [address] [address] 05/05/2025 08:49:16 05/09/2025 09:03:15 Acute kidney injury 72905002 N17.9 775688 CKD-3B with renal artery stenosis.R nitesh [facility] EHR, Cr has fluctuated widely but appears baseline is Cr 1.3-1.5.Bu caterina 2 mg daily is presently on hold. Does continue on Spironolac tone.Trend weights & labs closely.F/ U with Dr. Gutierrez (nephrolog y) as directed. Unclear if appt is scheduled. Dehydration 11897673 E86 .0 9786 SEE ABOVE... Hypertensi ve heart AND chronic kidney disease stage 3 7208051153 9100 I13.0 I50.32 N18.32 4034047806 03/30 TTE -- Normal LV size and systolic function. Moderate concentric LVH. Impaired diastolic relaxation Grade I. EF 60-65 %. Mild enlargemen t of left atrium. Mild mitral valve regurgitat ion. NSR. Her OP regimen Bumex 2 mg daily and Spironolac tone 25 mg daily.Due to above concern for dehydratio n, Bumex remains on hold. Spironolac tone continues at OP dosing.Con tinue Spironolac tone, Amlodipine , Irbesartan , and PRN Hydralazin e.SEE ABOVE regarding COLIN. It appears baseline Cr is 1.3-1.5.Hi storical Weights:De c 2023 = 240 lbApr 2024 = 241 lbMay 2024 = 230 lbJuly 2024 = 239-246 lbsAug 2024 = 218-222 lbsContinu e to trend blood pressures, weights, edema, monitor lytes and renal function, and adjust meds as clinically indicated. F/U with Dr. Luis Gasca (cards) on 07/07/25. Mixed hyperlipidemia 267 866189 E78.2 29721 Presumed stable. Continue Atorvastat in. Carotid ar sandra stenosis 76175440 I65.29 92610013 Oct 2024 carotid doppler = Left ICA moderate 50-69% stenosis. Low flow throughout the right carotid system. Possible distal right ICA occlusion. Treating supportive ly with Plavix, Statin, and good BP control.F/ U with Dr. Los Escobar (vascular) on 11/24/25. Peripheral vascular disease 287545041 I73.9 14994 March 2025 arterial doppler non-compre ssible consistent with arterial calcificat ions but unable to obtain RAFA as a result. However, waveforms were suggestiv e of no significan t stenosis. Venous dopplers negative for DVT.Treati ng supportive ly with Plavix, Statin, diuretics, and good BP control.Co ntinue Econazole cream to BLE routinely. F/U with Dr. Los Escobar (vascular) on 11/24/25. Stasis dermatitis 247429 05 I87.2 76340 SEE ABOVE... Primary hypothyroidism 53759083 E03.9 72777 Presumed stable. Aug 2024 TSH 2.01. No Free T4 available. Continue Levothyrox ine and consider checking thyroid panel during her stay. Pulmonary emphysema 8743 3001 J43.9 254465466 Presumed stable. No recent flares of COPD/Asthm a per pt. Pt reports she was not using Asmanex as OP as it did not work. Pt appears to be more compliant with nebulizers .Transitio ulises to routine Budenoside & Duoneb nebulizers .Continue Montelukas t.Respirat ory status is stable on RA at present.Do es not follow routinely with a pulmonolog ist. Uncomplicated asthma 707 999904 J45.909 6854774438 SEE ABOVE... Obstructiv e sleep apnea syndrome 31631193 G47.33 793274 Need to verify use of CPAP. Degenerati on of lumbar intervertebral disc 58328480 M51.362 0490019082 Stable. Continue PRN APAP & Tramadol.C ontinue therapies for BLE weakness. Spinal robert nosis of lumbar region 17800044 M48.061 8420285285 SEE ABOVE... Lumbar spondylosis 17750 0009 M47.816 55465 SEE ABOVE... Generalize d osteoarthritis 400925225 M15.9 1453 SEE ABOVE... Osteoporosis 70836686 M8 1.0 13527839 Presumed stable. Continue Calcitriol . Anemia of chronic disease 829251694 D63.8 950467 Hgb trended 10-11s.Rec ent Vit B12 & Folate.Iro n 48, TIBC 299, Trans Sat 16. Could consider oral supplement ation.Vagu e history of GIB -- monitor for S&S of bleeding. None at present.Co ntinue to trend closely. Generalize d anxiety disorder 10321593 F41.1 798833 Stable at present. Continue Escitalopr am & routine Xanax.As pt is on long-term Xanax for respirator y/dyspnea- related anxiety, will not attempt dose reduction at this point as could impede progress with therapy. Recurrent major depression in remission 15872510 F33.40 36696814 SEE ABOVE... Primary insomnia 9698907 F51.01 71538 SEE ABOVE... Hiatal her terry with gastroesophageal reflux 433764072 K44.9 K21.9 0658275 Stable without current concerns. Continue Esomeprazo le. Irritable bowel syndrome 81741453 K58.9 12264168 SEE ABOVE... Cirrhosis of liver 007 K74.60 2920848232 Details unclear.SE E ABOVE... History of gastrointestinal disease 253621661 Z87.19 21456619 Details unclear.SE E ABOVE... Vitamin D deficiency 347 04708 E55.9 09319 Presumed stable. Continue Calcitriol . Impaired f asting glycemia 674079138 R73.01 871731 Aug 2024 HgA1c 6.2%.Niranjan nue PRN blood sugars. Encourage LCS diet. History of deep vein thrombosis 237729341 Z86.208 0494846 Details unclear. Last venous doppler in March 2025 was negative for BLE DVTs. History of transient ischemic attack 444310018 Z86.73 6087249 Details unclear.Co ntinue good BP control, statin, & Plavix. Physical deconditioning 3700492693 9102 R53.81 504699 Related to age, recent inpatient stay, and multiple comorbidit ies. Continue PT/OT and monitor progress. Goal is for pt to transition to either LTC or BRIDGETT at this facility, depending on her care needs at the completion of her rehab stay. [id number] Jadyn Hopper DO [place] [address] [address] [address] 05/10/2025 10:03:56 05/18/2025 09:10:29 Acute kidney injury 46554815 N17.9 143958 CKD-3B with renal artery stenosis.R nitesh [facility] EHR, Cr has fluctuated widely but appears baseline is Cr 1.3-1.5.Bu caterina 2 mg daily was stopped. Does continue on Spironolac tone.Weigh ts climbing, adding back Bumex at low dose (0.5 mg daily).Mon itor labs closely.F/ U with Dr. Gutierrez (nephrolog y) as directed. Unclear if appt is scheduled. Dehydration 49860944 E86 .0 9786 SEE ABOVE... Hypertensi ve heart AND chronic kidney disease stage 3 1614323321 9100 I13.0 I50.32 N18.32 8315902532 03/30 TTE -- Normal LV size and systolic function. Moderate concentric LVH. Impaired diastolic relaxation Grade I. EF 60-65 %. Mild enlargemen t of left atrium. Mild mitral valve regurgitat ion. NSR. Her OP regimen Bumex 2 mg daily and Spironolac tone 25 mg daily.Due to above concern for dehydratio n, Bumex remains on hold. Spironolac tone continues at OP dosing.Con tinue Spironolac tone, Amlodipine , Irbesartan , Bumex, and PRN Hydralazin e.SEE ABOVE regarding COLIN. It appears baseline Cr is 1.3-1.5.Hi storical Weights:De c 2023 = 240 lbApr 2024 = 241 lbMay 2024 = 230 lbJuly 2024 = 239-246 lbsAug 2024 = 218-222 lbsContinu e to trend blood pressures, weights, edema, monitor lytes and renal function, and adjust meds as clinically indicated. F/U with Dr. Luis Gasca (cards) on 07/07/25. Mixed hyperlipidemia 267 128177 E78.2 57155 Presumed stable. Continue Atorvastat in. Carotid ar sandra stenosis 48917656 I65.29 52227570 Oct 2024 carotid doppler = Left ICA moderate 50-69% stenosis. Low flow throughout the right carotid system. Possible distal right ICA occlusion. Treating supportive ly with Plavix, Statin, and good BP control.F/ U with Dr. Los Escobar (vascular) on 11/24/25. Peripheral vascular disease 712309026 I73.9 85003 March 2025 arterial doppler non-compre ssible consistent with arterial calcificat ions but unable to obtain RAFA as a result. However, waveforms were suggestiv e of no significan t stenosis. Venous dopplers negative for DVT.Treati ng supportive ly with Plavix, Statin, diuretics, and good BP control.Co ntinue Econazole cream to BLE routinely. F/U with Dr. Los Escobar (vascular) on 11/24/25. Stasis dermatitis 622705 05 I87.2 84025 SEE ABOVE... Primary hypothyroidism 11482375 E03.9 28659 Presumed stable. Aug 2024 TSH 2.01. No Free T4 available. Continue Levothyrox ine.Checki ng thyroid panel with next lab draw. Pulmonary emphysema 8743 3001 J43.9 248186596 Presumed stable. No recent flares of COPD/Asthm a per pt. Pt reports she was not using Asmanex as OP as it did not work. Pt appeared to be more compliant with nebulizers so transition ed to routine Budenoside & Duoneb nebulizers , but changed these to PRN due to pt's refusal. Compliance remains an ongoing issue.Cont inue Montejulians t.Respirat ory status is stable on RA at present.Do es not follow routinely with a pulmonolog ist. Uncomplicated asthma 707 641121 J45.909 4368645180 SEE ABOVE... Obstructiv e sleep apnea syndrome 56598015 G47.33 275750 Need to verify use of CPAP. Degenerati on of lumbar intervertebral disc 82148143 M51.362 1953396775 Stable. Continue PRN APAP & Tramadol.C ontinue therapies for BLE weakness. Spinal robert nosis of lumbar region 31830705 M48.061 0550114520 SEE ABOVE... Lumbar spondylosis 87447 0009 M47.816 50505 SEE ABOVE... Generalize d osteoarthritis 341330359 M15.9 1453 SEE ABOVE... Osteoporosis 03607562 M8 1.0 12585314 Presumed stable. Continue Calcitriol . Anemia of chronic disease 275933414 D63.8 827287 Hgb trended 10-11s.Rec ent Vit B12 & Folate.Iro n 48, TIBC 299, Trans Sat 16. Could consider oral supplement ation.Vagu e history of GIB -- monitor for S&S of bleeding. None at present.Co ntinue to trend closely. Generalize d anxiety disorder 70190549 F41.1 257985 Stable at present. Continue Escitalopr am & routine Xanax.As pt is on long-term Xanax for respirator y/dyspnea- related anxiety, will not attempt dose reduction at this point as could impede progress with therapy. Recurrent major depression in remission 54042382 F33.40 55536953 SEE ABOVE... Primary insomnia 7779157 F51.01 20317 SEE ABOVE... Hiatal her terry with gastroesophageal reflux 346976527 K44.9 K21.9 2293214 Stable without current concerns. Continue Esomeprazo le. Irritable bowel syndrome 02210822 K58.9 38328239 SEE ABOVE... Cirrhosis of liver 007 K74.60 4415170939 Details unclear.SE E ABOVE... History of gastrointestinal disease 918310923 Z87.19 61455995 Details unclear.SE E ABOVE... Vitamin D deficiency 347 73554 E55.9 07965 Presumed stable. Continue Calcitriol . Impaired f asting glycemia 423571169 R73.01 360396 Aug 2024 HgA1c 6.2%.Niranjan nue PRN blood sugars. Encourage LCS diet. History of deep vein thrombosis 575549906 Z86.543 0587228 Details unclear. Last venous doppler in March 2025 was negative for BLE DVTs. History of transient ischemic attack 565779278 Z86.73 1231812 Details unclear.Co ntinue good BP control, statin, & Plavix. Physical deconditioning 9498473722 9102 R53.81 413478 Related to age, recent inpatient stay, and multiple comorbidit ies. Continue PT/OT and monitor progress. Goal is for pt to transition to either LTC or NURSING HOME at this facility, depending on her care needs at the completion of her rehab stay. [id number] Jadyn Hopper, DO [facility] [address] [place] [address] 05/12/2025 15:52:04 05/18/2025 09:11:21 Acute kidney injury 28360338 N17.9 422141 CKD-3B with renal artery stenosis.R nitesh [facility] EHR, Cr has fluctuated widely but appears baseline is Cr 1.3-1.5.Bu caterina was stopped. Does continue on Spironolac tone.Weigh ts climbing, added back Bumex at low dose (0.5 mg daily). Titrate Bumex up as appropriat e, previous dosing was 2 mg daily.Shanta tor labs closely.F/ U with Dr. Gutierrez (nephrolog y) as directed. Unclear if appt is scheduled. Dehydration 28822806 E86 .0 9786 SEE ABOVE... Hypertensi ve heart AND chronic kidney disease stage 3 8190151567 9100 I13.0 I50.32 N18.32 2898859294 03/30 TTE -- Normal LV size and systolic function. Moderate concentric LVH. Impaired diastolic relaxation Grade I. EF 60-65 %. Mild enlargemen t of left atrium. Mild mitral valve regurgitat ion. NSR. Her OP regimen Bumex 2 mg daily and Spironolac tone 25 mg daily.Due to above concern for dehydratio n, Bumex remains on hold. Spironolac tone continues at OP dosing.Con tinue Spironolac tone, Amlodipine , Irbesartan , Bumex, and PRN Hydralazin e.SEE ABOVE regarding COLIN. It appears baseline Cr is 1.3-1.5.Hi storical Weights:De c 2023 = 240 lbApr 2024 = 241 lbMay 2024 = 230 lbJuly 2024 = 239-246 lbsAug 2024 = 218-222 lbsContinu e to trend blood pressures, weights, edema, monitor lytes and renal function, and adjust meds as clinically indicated. F/U with Dr. Luis Gasca ([facility]) on 07/07/25. Mixed hyperlipidemia 267 254608 E78.2 26102 Presumed stable. Continue Atorvastat in. Carotid ar sandra stenosis 35861626 I65.29 18796435 Oct 2024 carotid doppler = Left ICA moderate 50-69% stenosis. Low flow throughout the right carotid system. Possible distal right ICA occlusion. Treating supportive ly with Plavix, Statin, and good BP control.F/ U with Dr. Los Escobar (vascular) on 11/24/25. Peripheral vascular disease 499762705 I73.9 53364 March 2025 arterial doppler non-compre ssible consistent with arterial calcificat ions but unable to obtain RAFA as a result. However, waveforms were suggestiv e of no significan t stenosis. Venous dopplers negative for DVT.Treati ng supportive ly with Plavix, Statin, diuretics, and good BP control.Co ntinue Econazole cream to BLE routinely. F/U with Dr. Los Escobar (vascular) on 11/24/25. Stasis dermatitis 525937 05 I87.2 44544 SEE ABOVE... Primary hypothyroidism 60063367 E03.9 04536 Presumed stable. Aug 2024 TSH 2.01. No Free T4 available. Continue Levothyrox ine.Checki ng thyroid panel with next lab draw. Pulmonary emphysema 8743 3001 J43.9 675252075 Presumed stable. No recent flares of COPD/Asthm a per pt. Pt reports she was not using Asmanex as OP as it did not work. Pt appeared to be more compliant with nebulizers so transition ed to routine Budenoside & Duoneb nebulizers , but changed these to PRN due to pt's refusal. Compliance remains an ongoing issue.Cont inue Montejulians t.Respirat ory status is stable on RA at present.Do es not follow routinely with a pulmonolog ist. Uncomplicated asthma 707 786714 J45.909 7002020521 SEE ABOVE... Obstructiv e sleep apnea syndrome 23304741 G47.33 944351 Need to verify use of CPAP. Degenerati on of lumbar intervertebral disc 64265998 M51.362 2005376611 Stable. Continue PRN APAP & Tramadol.C ontinue therapies for BLE weakness. Spinal robert nosis of lumbar region 07338374 M48.061 9942886341 SEE ABOVE... Lumbar spondylosis 75526 0009 M47.816 32545 SEE ABOVE... Generalize d osteoarthritis 240339868 M15.9 1453 SEE ABOVE... Osteoporosis 40905042 M8 1.0 17460981 Presumed stable. Continue Calcitriol . Anemia of chronic disease 177660203 D63.8 867488 Hgb trended 10-11s.Rec ent Vit B12 & Folate.Iro n 48, TIBC 299, Trans Sat 16. Could consider oral supplement ation.Vagu e history of GIB -- monitor for S&S of bleeding. None at present.Co ntinue to trend closely. Generalize d anxiety disorder 93403910 F41.1 558294 Stable at present. Continue Escitalopr am & routine Xanax.As pt is on long-term Xanax for respirator y/dyspnea- related anxiety, will not attempt dose reduction at this point as could impede progress with therapy. Recurrent major depression in remission 08186031 F33.40 12163922 SEE ABOVE... Primary insomnia 5621024 F51.01 81025 SEE ABOVE... Hiatal her terry with gastroesophageal reflux 578913797 K44.9 K21.9 2313342 Stable without current concerns. Continue Esomeprazo le. Irritable bowel syndrome 44394463 K58.9 67208451 SEE ABOVE... Cirrhosis of liver 007 K74.60 8998060377 Details unclear.SE E ABOVE... History of gastrointestinal disease 945835322 Z87.19 56929364 Details unclear.SE E ABOVE... Vitamin D deficiency 347 70072 E55.9 47994 Presumed stable. Continue Calcitriol . Impaired f asting glycemia 333894346 R73.01 226103 Aug 2024 HgA1c 6.2%.Niranjan nue PRN blood sugars. Encourage LCS diet. History of deep vein thrombosis 936835225 Z86.371 7940478 Details unclear. Last venous doppler in March 2025 was negative for BLE DVTs. History of transient ischemic attack 817725207 Z86.73 2865321 Details unclear.Co ntinue good BP control, statin, & Plavix. Physical deconditioning 4434449324 9102 R53.81 392356 Related to age, recent inpatient stay, and multiple comorbidit ies.Contin ue PT/OT and monitor progress. Pt will likely transition to LTC at the completion of her rehab stay. [id number] Jadyn Hopper, DO [facility] [address] [place] [address] 05/16/2025 11:07:39 05/18/2025 09:12:30 Acute kidney injury 83721154 N17.9 464142 CKD-3B with renal artery stenosis. Reviewed epic EHR, Cr has fluctuated widely but appears baseline is Cr 1.3-1.5.Bu caterina was stopped as Cr jumped to 1.8 while inpatient. Does continue on Spironolac tone.Weigh ts climbing, Cr down to 0.9, added back Bumex at 0.5 mg daily but weight continues to up-trend with worsening of LE edema. Increase Bumex to 1 mg daily.Labs on 05/19, to be faxed to Dr. Gutierrez.Mo nitor labs closely.F/ U with Dr. Gutierrez (nephrolog y) on 05/24. Dehydration 16956563 E86 .0 9786 SEE ABOVE... Hypertensi ve heart AND chronic kidney disease stage 3 8274505408 9100 I13.0 I50.32 N18.32 [id number] 03/30 TTE -- Normal LV size and systolic function. Moderate concentric LVH. Impaired diastolic relaxation Grade I. EF 60-65 %. Mild enlargemen t of left atrium. Mild mitral valve regurgitat ion. NSR. Her OP regimen Bumex 2 mg daily and Spironolac tone 25 mg daily.Due to above concern for dehydratio n, Bumex remains on hold. Spironolac tone continues at OP dosing.Con tinue Spironolac tone, Amlodipine , Irbesartan , Bumex, and PRN Hydralazin e.SEE ABOVE regarding COLIN. It appears baseline Cr is 1.3-1.5.Hi storical Weights:De c 2023 = 240 lbApr 2024 = 241 lbMay 2024 = 230 lbJuly 2024 = 239-246 lbsAug 2024 = 218-222 lbsContinu e to trend blood pressures, weights, edema, monitor lytes and renal function, and adjust meds as clinically indicated. F/U with Dr. Luis Gasca (cards) on 07/07/25. Mixed hyperlipidemia 267 379316 E78.2 66802 Presumed stable. Continue Atorvastat in. Carotid ar sandra stenosis [id number] I65.29 [id number] Oct 2024 carotid doppler = Left ICA moderate 50-69% stenosis. Low flow throughout the right carotid system. Possible distal right ICA occlusion. Treating supportive ly with Plavix, Statin, and good BP control.F/ U with Dr. Los Escobar (vascular) on 11/24/25. Peripheral vascular disease [id number] I73.9 29230 March 2025 arterial doppler non-compre ssible consistent with arterial calcificat ions but unable to obtain RAFA as a result. However, waveforms were suggestiv e of no significan t stenosis. Venous dopplers negative for DVT.Treati ng supportive ly with Plavix, Statin, diuretics, and good BP control.Co ntinue Econazole cream to BLE routinely. F/U with Dr. Los Escobar (vascular) on 11/24/25. Stasis dermatitis 615552 05 I87.2 85783 SEE ABOVE... Primary hypothyroidism 85657675 E03.9 28296 Stable. Continue Levothyrox ine.05/12/25 = TSH 0.861, Free T4 0.99 Pulmonary emphysema 8743 3001 J43.9 [id number] Presumed stable. No recent flares of COPD/Asthm a per pt. Pt reports she was not using Asmanex as OP as it did not work. Pt appeared to be more compliant with nebulizers so transition ed to routine Budesonide & Duoneb nebulizers , but changed these to PRN due to pt's refusal. Compliance remains an ongoing issue.Cont inue Montelukas t.Respirat ory status is stable on RA at present.Do es not follow routinely with a pulmonolog ist. Uncomplicated asthma 707 603552 J45.909 [id number] SEE ABOVE... Obstructiv e sleep apnea syndrome 38508675 G47.33 006289 SEE ABOVE... Degenerati on of lumbar intervertebral disc 53777437 M51.362 1715359446 Stable. Continue PRN APAP & Tramadol.C ontinue therapies for BLE weakness. Spinal robert nosis of lumbar region 91680458 M48.061 [id number] SEE ABOVE... Lumbar spondylosis 64834 0009 M47.816 05343 SEE ABOVE... Generalize d osteoarthritis 713444434 M15.9 1453 SEE ABOVE... Osteoporosis 33539573 M8 1.0 27205208 Presumed stable. Continue Calcitriol . Anemia of chronic disease 474225035 D63.8 582254 Hgb trended 10-11s.Rec ent Vit B12 & Folate.Iro n 48, TIBC 299, Trans Sat 16. Could consider oral supplement ation.Vagu e history of GIB -- monitor for S&S of bleeding. None at present.Co ntinue to trend closely. Generalize d anxiety disorder 82024153 F41.1 229161 Stable at present. Continue Escitalopr am & routine Xanax.As pt is on long-term Xanax for respirator y/dyspnea- related anxiety, will not attempt dose reduction at this point as could impede progress with therapy. Recurrent major depression in remission 10894786 F33.40 74252259 SEE ABOVE... Primary insomnia 2561888 F51.01 30986 SEE ABOVE... Hiatal her terry with gastroesophageal reflux 938687688 K44.9 K21.9 8703695 Stable without current concerns. Continue Esomeprazo le. Irritable bowel syndrome 36523054 K58.9 46876660 SEE ABOVE... Cirrhosis of liver 007 K74.60 2567889041 Details unclear.SE E ABOVE... History of gastrointestinal disease 405301161 Z87.19 07704609 Details unclear.SE E ABOVE... Vitamin D deficiency 347 27924 E55.9 72433 Presumed stable. Continue Calcitriol . Impaired f asting glycemia 142859917 R73.01 284600 Aug 2024 HgA1c 6.2%.Niranjan nue PRN blood sugars. Encourage LCS diet. History of deep vein thrombosis 517119937 Z86.466 2920095 Details unclear. Last venous doppler in March 2025 was negative for BLE DVTs. History of transient ischemic attack 573952134 Z86.73 8441366 Details unclear.Co ntinue good BP control, statin, & Plavix. Physical deconditioning 1590347318 9102 R53.81 016480 Related to age, recent inpatient stay, and multiple comorbidit ies.Contin ue PT/OT and monitor progress. Pt will transition to LTC at the completion of her rehab stay. [id number] Jadyn Hopper, DO [address] [place] [address] 05/18/2025 22:13:18 05/25/2025 21:34:53 Cellulitis of left lower limb 1284977165 1839563 L03.047 3451053 keflex BID x 7 days, leg elevation, continue increased diuretic dosef/u labs as orderedcon talking books library clerk venous doppler if persistent /worsening symptoms as patient does have a history of DVT [id number] Jadyn Hopper DO [address] [address] [place] [address] 05/20/2025 09:07:05 05/25/2025 21:33:16 Cellulitis of left lower limb [id number] 7940418 L03.389 6724062 Continue Keflex BID x 7 days (05/26).Con tinue leg elevation. Increased diuretics 05/17, may need further escalation in future. Was previously taking 2 mg daily.Woul d consider venous doppler if persistent /worsening symptoms as patient does have a history of DVT. Acute kidney injury 1466 9001 N17.9 467542 CKD-3B with renal artery stenosis. Reviewed epic EHR, Cr has fluctuated widely but appears baseline is Cr 1.3-1.5.Bu caterina was stopped as Cr jumped to 1.8 while inpatient. Does continue on Spironolac tone.Weigh ts climbed, Cr down to 0.9, added back Bumex at 0.5 mg daily but weight continued to up-trend with worsening of LE edema. Increased Bumex to 1 mg daily on 05/17.SEE ABOVE...La bs on 05/19 with results faxed to Dr. Gutierrez, Cr 1.0.Monito r labs closely.F/ U with Dr. Gutierrez (nephrolog y) on 05/24. Dehydration 65429757 E86 .0 9786 SEE ABOVE... Hypertensi ve heart AND chronic kidney disease stage 3 [id number] 9100 I13.0 I50.32 N18.32 [id number] 03/30 TTE -- Normal LV size and systolic function. Moderate concentric LVH. Impaired diastolic relaxation Grade I. EF 60-65 %. Mild enlargemen t of left atrium. Mild mitral valve regurgitat ion. NSR. Her OP regimen Bumex 2 mg daily and Spironolac tone 25 mg daily.Due to above concern for dehydratio n, Bumex remains on hold. Spironolac tone continues at OP dosing.Con tinue Spironolac tone, Amlodipine , Irbesartan , Bumex, and PRN Hydralazin e.SEE ABOVE regarding COLIN. It appears baseline Cr is 1.3-1.5.Hi storical Weights:De c 2023 = 240 lbApr 2024 = 241 lbMay 2024 = 230 lbJuly 2024 = 239-246 lbsAug 2024 = 218-222 lbs (Bumex stopped)Se p 2024 = 233.6 lbs (Bumex added back at half dose).Cont inue to trend blood pressures, weights, edema, monitor lytes and renal function, and adjust meds as clinically indicated. F/U with Dr. Luis Gasca (cards) on 07/07/25. Mixed hyperlipidemia 267 391289 E78.2 82674 Presumed stable. Continue Atorvastat in. Carotid ar sandra stenosis 22236648 I65.29 [id number] Oct 2024 carotid doppler = Left ICA moderate 50-69% stenosis. Low flow throughout the right carotid system. Possible distal right ICA occlusion. Treating supportive ly with Plavix, Statin, and good BP control.F/ U with Dr. Los Escobar (vascular) on 11/24/25. Peripheral vascular disease 220269759 I73.9 27182 March 2025 arterial doppler non-compre ssible consistent with arterial calcificat ions but unable to obtain RAFA as a result. However, waveforms were suggestiv e of no significan t stenosis. Venous dopplers negative for DVT.Treati ng supportive ly with Plavix, Statin, diuretics, and good BP control.Co ntinue Econazole cream to BLE routinely. F/U with Dr. Los Escobar (vascular) on 11/24/25. Stasis dermatitis 937863 05 I87.2 87724 SEE ABOVE... Primary hypothyroidism 14881579 E03.9 72950 Stable. Continue Levothyrox ine.05/12/25 = TSH 0.861, Free T4 0.99 Pulmonary emphysema 8743 3001 J43.9 016766549 Presumed stable. No recent flares of COPD/Asthm a per pt. Pt reports she was not using Asmanex as OP as it did not work. Pt appeared to be more compliant with nebulizers so transition ed to routine Budesonide & Duoneb nebulizers , but changed these to PRN due to pt's refusal. Compliance remains an ongoing issue.Cont inue Elise t.Respirat ory status is stable on RA at present.Do es not follow routinely with a pulmonolog ist. Uncomplicated asthma 707 574707 J45.909 5834173855 SEE ABOVE... Obstructiv e sleep apnea syndrome 41798998 G47.33 728051 SEE ABOVE... Degenerati on of lumbar intervertebral disc 44608131 M51.362 9832668881 Stable. Continue PRN APAP & Tramadol.C ontinue therapies for BLE weakness. Spinal robert nosis of lumbar region 34215741 M48.061 8258223529 SEE ABOVE... Lumbar spondylosis 31721 0009 M47.816 48667 SEE ABOVE... Generalize d osteoarthritis 596362528 M15.9 1453 SEE ABOVE... Osteoporosis 20093504 M8 1.0 08545556 Presumed stable. Continue Calcitriol . Anemia of chronic disease 444917589 D63.8 931560 Hgb trended 10-11s.Rec ent Vit B12 & Folate.Iro n 48, TIBC 299, Trans Sat 16. Could consider oral supplement ation.Vagu e history of GIB -- monitor for S&S of bleeding. None at present.Co ntinue to trend closely. Generalize d anxiety disorder 89300251 F41.1 983570 Stable at present. Continue Escitalopr am & routine Xanax.As pt is on long-term Xanax for respirator y/dyspnea- related anxiety, will not attempt dose reduction at this point as could impede progress with therapy. Recurrent major depression in remission 52791714 F33.40 43200251 SEE ABOVE... Primary insomnia 4491815 F51.01 82113 SEE ABOVE... Hiatal her terry with gastroesophageal reflux 290860933 K44.9 K21.9 0969090 Stable without current concerns. Continue Esomeprazo le. Irritable bowel syndrome 71575415 K58.9 06335883 SEE ABOVE... Cirrhosis of liver K74.60 6282393152 Details unclear.SE E ABOVE... History of gastrointestinal disease 840943509 Z87.19 64180031 Details unclear.SE E ABOVE... Vitamin D deficiency 347 59554 E55.9 45012 Presumed stable. Continue Calcitriol . Impaired f asting glycemia 410201375 R73.01 598346 Aug 2024 HgA1c 6.2%.Niranjan nue PRN blood sugars. Encourage LCS diet. History of deep vein thrombosis 665408571 Z86.835 8285250 Details unclear. Last venous doppler in March 2025 was negative for BLE DVTs. History of transient ischemic attack 332392361 Z86.73 7364003 Details unclear.Co ntinue good BP control, statin, & Plavix. Health Concerns Section Related Observation LastModified by Organization Detai ls LastModified Time None Recorded Concern Status LastModified by Organization Details LastModified Time None Recorded Advance Directives Directive None Recorded Payers Insurance Date Sequence Insurance Name Policy Number Policy Phelan Covered Member ID Phelan Member ID Guarantor Name 05/25/2025 1 [place] Lucille Vasques [id number] Lucille Vasques 05/09/2025 [place] Lucille Vasques [id number] Lucille Millery 05/25/2025 2 [place] [id number] Lucille Vasques [id number] Lucille Vasques Notes Date Note Type Note Provider Name and Address Organization Details Recorded Time 05/10/2025 text/html ROS as noted in the HPI F/U acute dehydration, COLIN on CKD-3, recent septicemia sec to parotitis, recent E. coli UTI, recent LLE cellulitis, physical debility, and chronic medical conditions.---04/29/26 Lucille is seated in her recliner in her room, a fair historian, doing well so far, reports that she was living in [facility] in [place], [place] for about 5 years before it was closed and she then transitioned to [facility] in [place], [place] in Oct 2024. She does not plan to return to this facility and is hoping to transition to [facility] vs. LTC, depending on her care needs at the end of rehabilitation. She tells me that her largest concerns are her inability to stand for more than 10-15 seconds, as her left knee staci. She is hoping therapy will help with this and she can have some type of brace to keep this from happening. She does not have much in regards to family, her and only son having passed. Her granddaughter Joan South is her mPOA and her [id number] (Joan's ) Jacobo helps her with her finances. They live in [place], [place]. She does report BOB which is chronic in nature but she has not been followed by pulmonology in recent past. Denies any recent COPD flares. VSS. Staff is without concerns at this time. They are going to contact [facility] to request home medication list as pt manages her own medications and does not have an updated medication list.---05/01/25e patient is sitting up in her W/C this afternoon. She is a fair historian with some forgetfulness. She is emotional today often crying during this exam as she is worried she will not have anyplace to go to upon d/c from SNF as she does not plan to return to her NURSING HOME in [place]. She would like to stay at [facility] and is waiting to hear back from to see if this is an option. Edema to the LE is mild/stable. Weight up 2 pounds since admission. Labs not done last week so scheduled for am. No nursing concerns.---05/03/25Do juancarlos is seated in her w/c in her room, in good spirits, without concerns but is noted to have mild stridor during my exam. She denies SOB at rest but does report some BOB and when speaking. Lungs are clear with diminished sounds, no wheezing noted. She does not appear to be using accessory muscles. O2 sats stable on RA. VSS except HRs are mildly elevated in 100s. Discussed pt's OP regimen and she confirms she does not use Asmanex as it does not work. She seems to really like nebulized medications and is in agreement with trialling Duonebs and Budesonide nebs while here, as she thinks this will help her once she discharges, as well. Otherwise she appears to be doing well. Staff is without concerns today.---05/05/25Fito cervantes is requesting visit to discuss her pain control. She continues to report generalized aches and pains from osteoarthritis. She also tells me she was meant to have spinal surgery back in 2019 but this was not done due to the deaths of her son and that year. She has chronic pain and is simultaneously requesting something stronger for pain but also reports the Tramadol causes constipation, so she would like to try something stronger. I educate her that alternative, stronger pain medications will actually be worse for constipation rather than better. She is in agreement with Dr. Walls's increasing the PRN frequency on her Tramadol as a solution. VSS except BPs are elevated this morning. Will continue to monitor. She is asymptomatic in this regard. Staff is without concerns today.---05/10/25Eriberto kaminski is seated in her w/c in her room, anxious as she has discovered the cost of long-term care, which she believes she will need as she is not able to yet stand up or transfer without 1-2 assist. She appears accepting of her inability to return to an NURSING HOME due to the progression and unpredictably of her bilateral knees giving out, has been working with family/SW on placement. She began refusing nebulizer treatments over the weekend so these were changed to PRN. Her weight continues to slowly climb without remarkable increase in edema noted. VSS except BPs mildly elevated (SBP 150s). Plan to add back Bumex at low-dose, to which patient agreess. Staff is without concerns otherwise. Per therapy notes = sit to stand to // bars min of 2.. or mod of 1 stood 35 sec 2times Leydi Oliver, RUBY [address] [facility], [place], [address], [facility] 05/10/2025 16:12:52 05/12/2025 text/html ROS as noted in the HPI F/U acute dehydration, COLIN on CKD-3, recent septicemia sec to parotitis, recent E. coli UTI, recent LLE cellulitis, physical debility, and chronic medical conditions.---04/29/26 Lucille is seated in her recliner in her room, a fair historian, doing well so far, reports that she was living in [facility] in [place], [place] for about 5 years before it was closed and she then transitioned to [facility] in [place], [place] in Oct 2024. She does not plan to return to this facility and is hoping to transition to [facility] vs. LTC, depending on her care needs at the end of rehabilitation. She tells me that her largest concerns are her inability to stand for more than 10-15 seconds, as her left knee staci. She is hoping therapy will help with this and she can have some type of brace to keep this from happening. She does not have much in regards to family, her and only son having passed. Her granddaughter Joan South is her mPOA and her [id number] (Joan's ) Jacobo helps her with her finances. They live in [place], [place]. She does report BOB which is chronic in nature but she has not been followed by pulmonology in recent past. Denies any recent COPD flares. VSS. Staff is without concerns at this time. They are going to contact [facility] to request home medication list as pt manages her own medications and does not have an updated medication list.---05/01/25e patient is sitting up in her W/C this afternoon. She is a fair historian with some forgetfulness. She is emotional today often crying during this exam as she is worried she will not have anyplace to go to upon d/c from SNF as she does not plan to return to her [facility] in [place]. She would like to stay at [facility] and is waiting to hear back from SS to see if this is an option. Edema to the LE is mild/stable. Weight up 2 pounds since admission. Labs not done last week so scheduled for am. No nursing concerns.---05/03/25Do bauer is seated in her w/c in her room, in good spirits, without concerns but is noted to have mild stridor during my exam. She denies SOB at rest but does report some BOB and when speaking. Lungs are clear with diminished sounds, no wheezing noted. She does not appear to be using accessory muscles. O2 sats stable on RA. VSS except HRs are mildly elevated in 100s. Discussed pt's OP regimen and she confirms she does not use Asmanex as it does not work. She seems to really like nebulized medications and is in agreement with trialling Duonebs and Budesonide nebs while here, as she thinks this will help her once she discharges, as well. Otherwise she appears to be doing well. Staff is without concerns today.---05/05/25Fito cervantes is requesting visit to discuss her pain control. She continues to report generalized aches and pains from osteoarthritis. She also tells me she was meant to have spinal surgery back in 2019 but this was not done due to the deaths of her son and that year. She has chronic pain and is simultaneously requesting something stronger for pain but also reports the Tramadol causes constipation, so she would like to try something stronger. I educate her that alternative, stronger pain medications will actually be worse for constipation rather than better. She is in agreement with Dr. Walls's increasing the PRN frequency on her Tramadol as a solution. VSS except BPs are elevated this morning. Will continue to monitor. She is asymptomatic in this regard. Staff is without concerns today.---05/10/25Eriberto kaminski is seated in her w/c in her room, anxious as she has discovered the cost of long-term care, which she believes she will need as she is not able to yet stand up or transfer without 1-2 assist. She appears accepting of her inability to return to an NURSING HOME due to the progression and unpredictably of her bilateral knees giving out, has been working with family/SW on placement. She began refusing nebulizer treatments over the weekend so these were changed to PRN. Her weight continues to slowly climb without remarkable increase in edema noted. VSS except BPs mildly elevated (SBP 150s). Plan to add back Bumex at low-dose, to which patient agreess. Staff is without concerns otherwise. Per therapy notes = sit to stand to // bars min of 2.. or mod of 1 stood 35 sec 2times---05/12/25Fito cervantes is doing well today, seated in her w/c in her room, without concerns except she remains anxious about her discharge plan. She was just on the phone with [facility] and is feeling better after speaking with them, as she tells me she will likely choose between [facility] and [facility] in [place]. Her pain is well-controlled overall recently. VSS. Staff is without concerns at this time. Per therapy notes = facilitated STS practice at // bar with modx2 with minx1 to maintain standing. Mod cues for maintaining upright posture via glute squeeze and trunk ext. Pt tolerates standing for increments of 30 s to 1 min. Pt reports she is limited by knee instability. Leydi Oliver, INTERNAL WHOLESALER [address] [facility], [place], [address], [facility] 05/12/2025 19:20:45 05/16/2025 text/html ROS as noted in the HPI F/U acute dehydration, COLIN on CKD-3, recent septicemia sec to parotitis, recent E. coli UTI, recent LLE cellulitis, physical debility, and chronic medical conditions.---04/29/26 Lucille is seated in her recliner in her room, a fair historian, doing well so far, reports that she was living in [facility] in [place], [place] for about 5 years before it was closed and she then transitioned to [facility] in [place], [place] in Oct 2024. She does not plan to return to this facility and is hoping to transition to [facility] vs. LTC, depending on her care needs at the end of rehabilitation. She tells me that her largest concerns are her inability to stand for more than 10-15 seconds, as her left knee staci. She is hoping therapy will help with this and she can have some type of brace to keep this from happening. She does not have much in regards to family, her and only son having passed. Her granddaughter Jona South is her mPOA and her [id number] (Joan's ) Jacobo helps her with her finances. They live in [place], [place]. She does report BOB which is chronic in nature but she has not been followed by pulmonology in recent past. Denies any recent COPD flares. VSS. Staff is without concerns at this time. They are going to contact [facility] to request home medication list as pt manages her own medications and does not have an updated medication list.---05/01/25e patient is sitting up in her W/C this afternoon. She is a fair historian with some forgetfulness. She is emotional today often crying during this exam as she is worried she will not have anyplace to go to upon d/c from SNF as she does not plan to return to her [facility] in [place]. She would like to stay at [facility] and is waiting to hear back from to see if this is an option. Edema to the LE is mild/stable. Weight up 2 pounds since admission. Labs not done last week so scheduled for am. No nursing concerns.---05/03/25Do juancarlos is seated in her w/c in her room, in good spirits, without concerns but is noted to have mild stridor during my exam. She denies SOB at rest but does report some BOB and when speaking. Lungs are clear with diminished sounds, no wheezing noted. She does not appear to be using accessory muscles. O2 sats stable on RA. VSS except HRs are mildly elevated in 100s. Discussed pt's OP regimen and she confirms she does not use Asmanex as it does not work. She seems to really like nebulized medications and is in agreement with trialling Duonebs and Budesonide nebs while here, as she thinks this will help her once she discharges, as well. Otherwise she appears to be doing well. Staff is without concerns today.---05/05/25Fito cervantes is requesting visit to discuss her pain control. She continues to report generalized aches and pains from osteoarthritis. She also tells me she was meant to have spinal surgery back in 2019 but this was not done due to the deaths of her son and that year. She has chronic pain and is simultaneously requesting something stronger for pain but also reports the Tramadol causes constipation, so she would like to try something stronger. I educate her that alternative, stronger pain medications will actually be worse for constipation rather than better. She is in agreement with Dr. Walls's increasing the PRN frequency on her Tramadol as a solution. VSS except BPs are elevated this morning. Will continue to monitor. She is asymptomatic in this regard. Staff is without concerns today.---05/10/25Eriberto kaminski is seated in her w/c in her room, anxious as she has discovered the cost of long-term care, which she believes she will need as she is not able to yet stand up or transfer without 1-2 assist. She appears accepting of her inability to return to an [facility] due to the progression and unpredictably of her bilateral knees giving out, has been working with family/SW on placement. She began refusing nebulizer treatments over the weekend so these were changed to PRN. Her weight continues to slowly climb without remarkable increase in edema noted. VSS except BPs mildly elevated (SBP 150s). Plan to add back Bumex at low-dose, to which patient agreess. Staff is without concerns otherwise. Per therapy notes = sit to stand to // bars min of 2.. or mod of 1 stood 35 sec 2times---05/12/25Dorot hy is doing well today, seated in her w/c in her room, without concerns except she remains anxious about her discharge plan. She was just on the phone with [facility] [place] and is feeling better after speaking with them, as she tells me she will likely choose between [facility] and [facility] in [place]. Her pain is well-controlled overall recently. VSS. Staff is without concerns at this time. Per therapy notes = facilitated STS practice at // bar with modx2 with minx1 to maintain standing. Mod cues for maintaining upright posture via glute squeeze and trunk ext. Pt tolerates standing for increments of 30 s to 1 min. Pt reports she is limited by knee instability.--- 5Dorothy is self-propelling in her w/c in the hallway, going to update nursing about an upcoming appt she has with Dr. Gutierrez. We discuss her plans to discharge, as she still is unclear which facility she will d/c to for LTC. She tells me, I will not spend the rest of my life in a place I have not yet visited. She tells me that her family plans to arrange visits to the facility and facetime her so she can see them. Lucille reports pain is recently controlled and she is without concerns otherwise today. VSS. Staff is without concerns today. Per therapy notes = toileting dep with sit to stand lift. transfer with jian steady and sit ot stand lift... sit/stand MaxA of 1-2 Leydi Oliver, RUBY [address] [facility], [place], [address], [place] [employer] 05/16/2025 17:01:03 05/18/2025 text/html ROS as noted in the HPI I am asked to see the patient this evening by nursing staff due to concerns for LLE cellulitis. Nursing reports the left leg is red and looks infected. She has had increased LE edema over the recent days with increase in her bumex dose to 1 mg daily - f/u labs are ordered for 05/19. The patient is sitting in her bedside chair this evening. She has some mild discomfort to her left leg and is concerned that she needs some antibiotics. She reports similar symptoms off and on over the last few years and blames her bad skin on symptoms. No fever/chills/new systemic symptoms. Her respiratory status is stable and no other new [place] [address] [place], [address], [employer] [facility] 05/20/2025 06:59:17 05/20/2025 text/html ROS as noted in the HPI 89-year-old female with PMH of HTN, Diastolic CHF, CKD Stage 3b, Renal Artery Stenosis, HLD, Carotid Stenosis, Hx of TIA, PVD/BLE Stasis Dermatitis, Hx of DVT, Hypothyroidism, Asthma, COPD (Emphysema), ZACHARY, Hx of GI ulcer, Liver Cirrhosis, DDD, Lumbar Spondylosis/Spinal Stenosis, Osteoporosis, Anemia, GWENDOLYN, MDD, Insomnia, IBS, GERD with Hiatal Hernia, and Vit D & B12 Deficiency presenting for rehabilitation following hospitalization at [facility] from 04/23 to 04/28/25 for acute dehydration, COLIN on CKD-3, physical debility, and chronic medical conditions. She presented from [facility] via EMS due to increased weakness... patient had been unable to stand up to pivot to get to the commode. She has been unable to bear weight on her LE. In the ER, UA was unremarkable, head CT and CXR unremarkable. She was felt to be dehydrated with hemoconcentration. She was treated with IV fluids. Bumex held. Therapy consulted and followed during her hospitalization. She has been discharged to [facility] to continue rehabilitation. New meds: None.Adjusted meds: None.Stopped meds: Bumex 2 mg daily on hold. She was hospitalized twice in Aug 2024 at [facility] in [place] for BLE cellulitis. She also had a francisco-rectal abscess s/p I&D on 09/11/24, was treated with Cefepime & Flagyl while inpatient, not discharged on antibiotics. She was inpatient at [facility] in [place], [place] from 03/23 to 03/29/25 for ESBL E. coli UTI and questionable cellulitis of LLE (although suspect also could have simply been chronic stasis dermatitis). She was discharged to [facility] on PO Levaquin x 4 doses, then ultimately discharged back to [facility] on 04/22/25. Weight was around 239-246 lbs during this hospitalization. She was again inpatient at [facility] in [place], [place] from 04/08 to 04/13/25 for sepsis sec to parotitis. She was treated with Rocephin, Flagyl, and Vanc while inpatient and discharged on oral Levaquin, Flagyl, and Bactrim at discharge, to complete on 04/22. She was 218-222 lbs during this hospitalization. PCP Dr. Jorge L Montes.DNR with comfort measures.mPOA is granddaughter Joan South. ---04/29/25Lucille is seated in her recliner in her room, a fair historian, doing well so far, reports that she was living in [facility] in [place], [place] for about 5 years before it was closed and she then transitioned to [facility] in [place], [place] in Oct 2024. She does not plan to return to this facility and is hoping to transition to [facility] vs. LTC, depending on her care needs at the end of rehabilitation. She tells me that her largest concerns are her inability to stand for more than 10-15 seconds, as her left knee staci. She is hoping therapy will help with this and she can have some type of brace to keep this from happening. She does not have much in regards to family, her and only son having passed. Her granddaughter Joan South is her mPOA and her [id number] (Joan's ) Jacobo helps her with her finances. They live in [place], [place]. She does report BOB which is chronic in nature but she has not been followed by pulmonology in recent past. Denies any recent COPD flares. VSS. Staff is without concerns at this time. They are going to contact [facility] to request home medication list as pt manages her own medications and does not have an updated medication list.---05/01/25e patient is sitting up in her W/C this afternoon. She is a fair historian with some forgetfulness. She is emotional today often crying during this exam as she is worried she will not have anyplace to go to upon d/c from SNF as she does not plan to return to her [facility] in [place]. She would like to stay at [facility] and is waiting to hear back from to see if this is an option. Edema to the LE is mild/stable. Weight up 2 pounds since admission. Labs not done last week so scheduled for am. No nursing concerns.---05/03/25Do juancarlos is seated in her w/c in her room, in good spirits, without concerns but is noted to have mild stridor during my exam. She denies SOB at rest but does report some BOB and when speaking. Lungs are clear with diminished sounds, no wheezing noted. She does not appear to be using accessory muscles. O2 sats stable on RA. VSS except HRs are mildly elevated in 100s. Discussed pt's OP regimen and she confirms she does not use Asmanex as it does not work. She seems to really like nebulized medications and is in agreement with trialling Duonebs and Budesonide nebs while here, as she thinks this will help her once she discharges, as well. Otherwise she appears to be doing well. Staff is without concerns today.---05/05/25Dopolly cervantes is requesting visit to discuss her pain control. She continues to report generalized aches and pains from osteoarthritis. She also tells me she was meant to have spinal surgery back in 2019 but this was not done due to the deaths of her son and that year. She has chronic pain and is simultaneously requesting something stronger for pain but also reports the Tramadol causes constipation, so she would like to try something stronger. I educate her that alternative, stronger pain medications will actually be worse for constipation rather than better. She is in agreement with Dr. Walls's increasing the PRN frequency on her Tramadol as a solution. VSS except BPs are elevated this morning. Will continue to monitor. She is asymptomatic in this regard. Staff is without concerns today.---05/10/25Eriberto kaminski is seated in her w/c in her room, anxious as she has discovered the cost of long-term care, which she believes she will need as she is not able to yet stand up or transfer without 1-2 assist. She appears accepting of her inability to return to an [facility] due to the progression and unpredictably of her bilateral knees giving out, has been working with family/SW on placement. She began refusing nebulizer treatments over the weekend so these were changed to PRN. Her weight continues to slowly climb without remarkable increase in edema noted. VSS except BPs mildly elevated (SBP 150s). Plan to add back Bumex at low-dose, to which patient agreess. Staff is without concerns otherwise. Per therapy notes = sit to stand to // bars min of 2.. or mod of 1 stood 35 sec 2times---05/12/25Fito cervantes is doing well today, seated in her w/c in her room, without concerns except she remains anxious about her discharge plan. She was just on the phone with [facility] [place] and is feeling better after speaking with them, as she tells me she will likely choose between [facility] and [facility] in [place]. Her pain is well-controlled overall recently. VSS. Staff is without concerns at this time. Per therapy notes = facilitated STS practice at // bar with modx2 with minx1 to maintain standing. Mod cues for maintaining upright posture via glute squeeze and trunk ext. Pt tolerates standing for increments of 30 s to 1 min. Pt reports she is limited by knee instability.--- 5Dorojuanito is self-propelling in her w/c in the hallway, going to update nursing about an upcoming appt she has with Dr. Gutierrez. We discuss her plans to discharge, as she still is unclear which facility she will d/c to for LTC. She tells me, I will not spend the rest of my life in a place I have not yet visited. She tells me that her family plans to arrange visits to the facility and facetime her so she can see them. Lucille reports pain is recently controlled and she is without concerns otherwise today. VSS. Staff is without concerns today. Per therapy notes = toileting dep with sit to stand lift. transfer with jian steady and sit ot stand lift... sit/stand MaxA of 1-2---05/18/25I am asked to see the patient this evening by nursing staff due to concerns for LLE cellulitis. Nursing reports the left leg is red and looks infected. She has had increased LE edema over the recent days with increase in her bumex dose to 1 mg daily - f/u labs are ordered for 05/19.The patient is sitting in her bedside chair this evening. She has some mild discomfort to her left leg and is concerned that she needs some antibiotics. She reports similar symptoms off and on over the last few years and blames her bad skin on symptoms. No fever/chills/new systemic symptoms. Her respiratory status is stable and no other new concerns per nursing.---05/20/25Dosiri vega is doing well today, is looking forward to her discharge to [facility] in [place], [place] on Friday. She is without concerns about this, although does have an expected level of nervousness with this transition. She thinks her LLE cellulitis is improved and I agree after examination. She still has notable edema to BLE which will hopefully improve with recent escalation in diuretics. VSS. Staff is without concerns at this time. Per therapy notes = Worked on standing using a grab bar, requiring mod A of 2. Performed two stands with 1 min of static stand ea. Transfers Sit --> Stand = Mod ([place]) [place] [address] [place], [address], [facility] 05/20/2025 16:39:18 OBGyn Episode No OBEpisode recorded.
--- OUTSIDE RECORDS SUMMARY | 2025-07-14 15:32 | XMS_ITS | Encounter Summary ---
Author Organization [facility] Address 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
--- OUTSIDE RECORDS SUMMARY | 2025-07-14 15:32 | XMS_ITS | Encounter Summary ---
Author Organization [facility] Address [address] [place] [address] Care Team Providers Care Sexual Health Physician Name Role Phone Unavailable Primary Care Provider Unavailabl e Encounter Details Date Type Department Care Team (Late st Contact Info) Description 06/17/2025 Lab Requisition [facility] [address] [place] [address] Antwon Metcalf DO [address] [place] [id number] Social History Tobacco Use Types Packs/Day Years Used Date Smoking Tobacco: Never Assessed Comments Unknown Sex and Gender Information Value Date Recorded Sex Assigned at Not on file 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 Gender Identity Not on file Sexual Orientation Not on file documented as of this encounter Plan of Treatment Not on file documented as of this encounter Procedures Procedure Name Priority Date/Time Associated Diagnosis Comments CBC W AUTO DIFFERENTIAL STAT 06/17/2025 7:56 PM CDT BASIC METABOLIC PANEL (CALCIUM TOTAL) STAT 06/17/2025 7:56 PM CDT documented in this encounter Results * (ABNORMAL) CBC WITH DIFFERENTIAL (06/17/2025 7:56 PM CDT) WBC 8.4 4.0 - 10.7 x10E9/L 06/17/2025 8:12 PM CDT [facility] RBC Count 3.65(L) 3.90 - 5.20 x10E12/L 06/17/2025 8:12 PM CDT [facility] Hemoglobin 10.1(L) 11.9 - 15.8 g/dL 06/17/2025 8:12 PM CDT [facility] Hematocrit 31.8(L) 34.8 - 46.1 % 06/17/2025 8:12 PM CDT [facility] MCV 87.1 80.0 - 98.0 fL 06/17/2025 8:12 PM CDT [facility] MCH 27.7 26.7 - 33.6 pg 06/17/2025 8:12 PM CDT [facility] MCHC 31.8 31.7 - 36.3 g/dL 06/17/2025 8:12 PM [facility] RDW-CV 14.4 11.3 - 14.8 % 06/17/2025 8:12 PM [facility] Platelet Count 271 150 - 420 x10E9/L 06/17/2025 8:12 PM T [facility] MPV 9.3 7.8 - 11.4 fL 06/17/2025 8:12 PM [facility] Neutrophil % 60.9 41.0 - 74.0 % 06/17/2025 8:12 PM [facility] Lymphocyte % 19.0 17.0 - 47.0 % 06/17/2025 8:12 PM CDT [facility] Monocyte % 10.1 3.0 - 11.0 % 06/17/2025 8:12 PM [facility] Eosinophil % 9.1(H) 0.0 - 7.0 % 06/17/2025 8:12 PM [facility] Basophil % 0.5 0.0 - 1.6 % 06/17/2025 8:12 PM [facility] Immature Granulocytes % 0.4 0.0 - 1.0 % 06/17/2025 8:12 PM [facility] Neutrophil Absolute 5.12 1.60 - 7.50 x10E9/L 06/17/2025 8:12 PM [facility] Lymphocyte Absolute 1.59 1.00 - 4.40 x10E9/L 06/17/2025 8:12 PM CDT [facility] Monocyte Absolute 0.85 0.15 - 1.00 x10E9/L 06/17/2025 8:12 PM CDT [facility] Eosinophil Absolute 0.76(H) 0.00 - 0.60 x10E9/L 06/17/2025 8:12 PM T [facility] Basophil Absolute 0.04 0.00 - 0.13 x10E9/L 06/17/2025 8:12 PM CDT [facility] Blood BLOOD SPECIMEN / Unknown 06/17/2025 7:56 PM CDT 06/17/2025 7:56 PM CDT us [facility] - HEMATOLOGY ORDERABLES Theresa l Result [facility] [address] [place] [address] * (ABNORMAL) BASIC METABOLIC PANEL (CALCIUM TOTAL) (06/17/2025 7:56 PM CDT) [facility] Glucose 86 70 - 99 mg/dL 06/17/2025 8:42 PM CDT [facility] Sodium 140 136 - 145 mmol/L 06/17/2025 8:42 PM CDT [facility] Potassium 4.6 3.5 - 5.1 mmol/L 06/17/2025 8:42 PM CDT [facility] Chloride 104 98 - 107 mmol/L 06/17/2025 8:42 PM CDT [facility] CO2 24 22 - 29 mmol/L 06/17/2025 8:42 PM CDT [facility] Calcium 9.7 8.4 - 10.4 mg/dL 06/17/2025 8:42 PM CDT [facility] Anion Gap 12 6 - 16 mmol/L 06/17/2025 8:42 PM CDT [facility] BUN 32(H) 7 - 26 mg/dL 06/17/2025 8:42 PM CDT [facility] Creatinine 1.36(H) 0.50 - 1.20 mg/dL 06/17/2025 8:42 PM CDT [facility] eGFR by CKD-EPI 37(L) >=90 mL/min/1.7 3 m2 06/17/2025 8:42 PM CDT [facility] Comment:Estimated Glomerular Filtration Rate (eGFR) calculated using the CKD-EPI Creatinine Equation (2020), per the National Kidney Foundation and [place] Society of Nephrology recommendations. Blood BLOOD SPECIMEN / Unknown Venipuncture / Unknown 06/17/2025 7:56 PM CDT 06/17/2025 7:56 PM CDT us Antwon Metcalf DO LAB - CHEMISTRY ORDERABLES Final Result Performing Organization Address City/State/[facility] Co de Phone Number [facility] [address] [place] [address] documented in this encounter Visit Diagnoses Not on filedocumented in this encounter
--- OUTSIDE RECORDS SUMMARY | 2025-07-14 15:32 | XMS_ITS | Encounter Summary ---
Author Organization [facility] Address [address] [place] [address] Care Team Providers Care Field Reimbursement Manager Name Role Phone Unavailable Primary Care Provider Unavailabl e Encounter Details Date Type Department Care Team (Late st Contact Info) Description 07/24/2023 Lab Requisition [facility] - DermPath Lab [address] [place] [id number] Jamil Salas MD [address] [place] [address] Social History Tobacco Use Types Packs/Day Years Used Date Smoking Tobacco: Never Assessed Comments Unknown Sex and Gender Information Value Date Recorded Sex Assigned at Not on file Legal Sex Female 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 Gender Identity Not on file Sexual Orientation Not on file documented as of this encounter Plan of Treatment Not on file documented as of this encounter Procedures Procedure Name Priority Date/Time Associated Diagnosis Comments DERMATOPATHOLOGY Routine 07/22/2023 12:0 0 AM GLASS RIBBON MACHINE OPERATOR ASSISTANT documented in this encounter Results * DERMATOPATHOLOGY (07/22/2023 12:00 AM GLASS RIBBON MACHINE OPERATOR ASSISTANT) Case Report Dermatopathology Report Case: [id number] Authorizing Provider: Jamil Salas MD Collected: 07/22/2023 12:00 AM Ordering Location: [facility] DermPath Lab Received: 07/24/2023 09:19 AM Pathologist: Charlene Yang MD Specimen: Skin, nasal tip 3 3:16 PM GLASS RIBBON MACHINE OPERATOR ASSISTANT DERMATOPATHOLOGY LABORATORY Final Diagnosis Specimen A. SKIN, nasal tip: BASAL CELL CARCINOMA, NODULAR TYPE (C44.311) 3 3:16 PM GLASS RIBBON MACHINE OPERATOR ASSISTANT DERMATOPATHOLOGY LABORATORY at [address] GLASS RIBBON MACHINE OPERATOR ASSISTANT Clinical History R/O BCC 3:16 PM [facility] DERMATOPATHOLOGY LABORATORY Gross Description Specimen A: Received is one formalin filled container labeled with the patient's name and designated nasal tip. The specimen consists of a (3) pieces shave biopsy measuring 1x4x1, 6x5x1, 3x3x1 mm. Jar 0. 3:16 PM [facility] DERMATOPATHOLOGY LABORATORY Microscopic Description Specimen A. SKIN, nasal tip: Within the dermis there are aggregates of basaloid cells with a high nuclear to cytoplasmic ratio and peripheral palisading. 3 3:16 PM [facility] DERMATOPATHOLOGY LABORATORY Disclaimer An external and internal positive and negative controls are appropriate for the histochemical, immunohistochemical and immunofluorescence stain(s) in this case (if any), except where stated explicitly. The performance characteristics of the stain(s) cited in this report were developed and its performance characteristic determined by the Dermatopathology Laboratory at [facility], directed by Dr. Anil Willett. These tests need not be, and therefore are not, approved by the [place] Food and Drug Administration. The tests are used for clinical purposes. Billing Codes Specimen Charges Stain Charges 28670 1 3 3:16 PM GLASS RIBBON MACHINE OPERATOR ASSISTANT DERMATOPATHOLOGY LABORATORY Embedded Images 3 3:16 PM [facility] DERMATOPATHOLOGY [facility]ORATORY Pathology/Cytolog y TISSUE SPECIMEN FROM SKIN / Unknown 07/22/2023 07/24/2023 9:19 AM GLASS RIBBON MACHINE OPERATOR ASSISTANT Jamil Salas MD LAB - PATHOLOGY/CYTOLOGY ORDERAB LES Final Result DERMATOPATHOLOGY LABORATORY [facility] - Department of Dermatology [address], [address] [phone] documented in this encounter Visit Diagnoses Not on filedocumented in this encounter
--- OUTSIDE RECORDS SUMMARY | 2025-07-14 15:32 | XMS_ITS | Clinical Summary ---
Author Organization [facility] Address [address] [place] [address] Care Team Providers Care Brine Purifier Name Role Phone Unavailable Primary Care Provider [...] 75+ series) 2010 COVID-19 Vaccine ( - 2024-2 6 season) 2025 Influenza Adult (#1) 2025 Hepatitis A Vaccines Aged Out No long er eligible based on patient's age to complete this topic Meningococcal B Vaccine Aged Out No l onger eligible based on patient's age to complete this topic Meningococcal Vaccine Aged Out No kwesi abdirizak eligible based on patient's age to complete this topic RSV Immunizations Under 20 Months Aged Out No longer eligible based on patient's age to complete this topic
--- OUTSIDE RECORDS SUMMARY | 2025-07-14 15:50 | XMS_ITS | Clinical Summary ---
Author Organization [facility] Address [address], [place] [address] Phone Care Team Providers Care Bow Tacker Name Role Phone Irving Montes MD Primary Care Provider [phone] Allergies Active Allergy Reactions Criticality Noted Date [...] DAY 15 tablet 4 2 Active Pancrelipase, Icx-Ltsy-Docq, (Zenpep) [id number] units capsule delayed-releas e particles TAKE 2 [...] Immunizations Immunization Administration Dates Next Due Influenza Split High Dose Pr eservative Free IM 05/25/2019,06/16/2018,05/16/2014 Influenza TIV (IM) 05/23/2015,06/14/2013 Influenza Trivalent Adjuvanted 06/21/2017 Influenza, Injectable, Quadrivalent 07/13/2020,1 Influenza, Injectable, Quadr ivalent, Preservative Free 06/29/2016 Influenza, split virus, trivalent, PF 07/03/2015 Zoster 07/28/2015 Family History Medical History Relation [...] / Low and Medium Risk (1 of 2 - PCV) 1985 COVID-19 Vaccine (2 - 2024-2 6 season) 2025 07/20/2021 Influenza Vaccine (#1) 2025 7, 06/29/2016, 07/03/2015, Additional history exists Insurance MEDICARE [facility] Care Teams Bow Tacker Relationship Specialty Start Date End Date Irving Montes MD [address] [place] [phone] PCP - General Family Medicine 09/06/19
[2025-07-14] MEDS: ceFAZolin 2 GM in SODIUM CHLORIDE 0.9% IV 50 ML 100 ML IVPB ×2 (16:13→22:13)
[2025-07-14] MEDS: CLINDAMYCIN 900 MG/D5W 50 ML 900 MG/50 ML PIGGYBACK 50 MG IVPB ×2 (16:30→22:46)
--- NOTE | 2025-07-14 18:57 | P.CONINF_ITS ---
Assessment and Plan Assessment and plan (1) Cellulitis of leg, left: Code(s): L03.116 - Cellulitis of left lower limb Status: Acute Plan ASSESSMENT: 1. LLE cellulitis 2. pyuria, r/o UTI 3. CKD 4. HTN, HL, DVT, hypothyroidism, COPD RECOMMENDATIONS: -change abx to ancef and clindamycin -f/u on urine and blood cxs and tailor abx further d/w pharmacy staff Exam done via telemedicine with the aid of a HIPPA protected audio/visual interface. Patient was at [facility] in [place], [place] while I was in my office in [place]. With patient consent. HPI Data of Consult Date/Time: 07/14/25 18:57 Requesting Physician: Bushra Burton MD Primary Care Provider: Irving Montes MD Consult Narrative Reason for consult: LLE cellulitis Narrative: Lucille Vasques is a 89 year old female with pmhx/o CKD, HTN, HL, DVT, COPD, hypothyroid, lives in SNF, admitted with LLE cellulitis. +leukocytosis. UA with pyuria PMFSH Past Medical History Medical History (Updated 07/14/25 @ 06:16 by Betsey Olguin APRN) Cellulitis, leg HTN (hypertension) Combined variable immunodeficiency Hiatal hernia Mixed hyperlipidemia Rectal abscess September 2024 Stasis dermatitis of both legs Left greater than right Carotid stenosis, left COPD with asthma Cellulitis of leg, left Chronic Anemia in chronic kidney disease Umbilical hernia Basal cell carcinoma of nose Skin cancer Lesion of skin of nose Nasal polyp Morbid (severe) obesity due to excess calories Heart failure with preserved ejection fraction Urinary incontinence History of DVT (deep vein thrombosis) Obstructive sleep apnea Iron deficiency anemia Leg weakness, bilateral Lumbar spondylosis Memory loss Mass of right thigh Insomnia Chronic kidney disease, stage 4 (severe) Ataxia Diffuse nodular cirrhosis of liver Ventral hernia without obstruction or gangrene Vitamin D deficiency Hypothyroidism Screening mammogram for high-risk patient Anxiety Depression DDD (degenerative disc disease) Osteoporosis GERD (gastroesophageal reflux disease) Inguinal hernia IBS (irritable bowel syndrome) Gastrointestinal ulcer Emphysema of lung Asthma TIA (transient ischemic attack) Low vitamin B12 level Surgical History Surgical History Hx of oral surgery H/O arthroscopic knee surgery Hx of bilateral hip replacements History of bladder surgery bladder tie-up Hx of tonsillectomy Hx of cataract surgery Family History Family History Mother Family history of suicide Patient's mother is Father Patient's father is , Onset Age: 76 Family history of malignant neoplasm Other Family history of cardiovascular disease Family history of coronary artery disease Hypertension Social History Social History (Updated 07/14/25 @ 05:48 by Betsey Olguin APRN) Social History: The patient is she has lived in an assisted living facility for about 6 years. She is noted to reside at [facility] at this time. She had 1 son who has . She used to work for the [employer] and then she volunteered 17 years at [facility] for [employer]. She quit smoking at age 60. She smoked up to 2 packs per day at 1 point. Code status: DNR/DNI Healthcare power of assistant district attorney: Joan South (granddaughter) Smoking packs per day: 2 Smoking cigarettes per day: 40.0 Years smoked: 40 Smoking pack-years: 80.00 Smoking status: Former smoker Tobacco type: cigarettes Second hand tobacco smoke exposure: No Smoking end date: 04/23/25 Alcohol intake: former Drinks per week: 1 Substance use: former Substance use type: marijuana Last use: Pt has stopped the gummies. 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 Gender identity (if verbalized by the patient): Female Sexual Orientation (if Verbalized by the Patient): Straight or Heterosexual Spiritual care concerns: No Meds Home Medications and Allergies Home Medications ?Medication ?Instructions ?Recorded ?Confirmed ?Type escitalopram oxalate 10 mg tablet 10 mg PO QAM #90 tab s 11/09/24 07/14/25 Rx esomeprazole magnesium 40 mg 40 mg PO DAILY #90 caps 0 11/09/24 07/14/25 Rx capsule,delayed release montelukast 10 mg tablet 10 mg PO DAILY #90 tabs 11/0607/14/25 Rx acetaminophen 500 mg tablet 500 mg PO Q6H PRN fever or pain 11/23/24 07/14/25 History atorvastatin 20 mg tablet (Lipitor) 20 mg PO QHS #90 t abs 11/23/24 07/14/25 Rx hydralazine 10 mg tablet 10 mg PO TID PRN hypertensio n #60 11/23/24 07/14/25 Rx tabs albuterol sulfate 2.5 mg/3 mL 2.5 mg (3 mL) inhalation Q4H PRN 01/11/25 07/14/25 Rx (0.083 %) solution for nebulization shortness of breat h or wheezing #90 mL albuterol sulfate 90 mcg/actuation 2 inh inhalation Q4 H #8.5 grams 01/11/25 07/14/25 Rx aerosol inhaler calcitriol 0.25 mcg capsule 0.25 mcg PO 3XW #90 caps 0 01/21/25 07/14/25 Rx econazole nitrate 1 % topical cream 1 applic topical B ID #85 grams 01/25/25 07/14/25 Rx white petrolatum 41 % topical 1 applic topical DAILY P RN dry 02/22/25 07/14/25 Rx ointment (Aquaphor Original) skin #396 grams tramadol 50 mg tablet 50 mg PO Q8H PRN pain #60 ta bs 03/05/25 07/14/25 Rx levothyroxine 75 mcg tablet 75 mcg PO DAILY #30 tabs 0 03/08/25 07/14/25 Rx ondansetron HCl 4 mg tablet See Rx Instructions .Route 03/09/25 07/14/25 Rx .COMPLEX #30 tabs spironolactone 25 mg tablet 25 mg PO DAILY #30 tabs 07/14/25 Rx alprazolam 1 mg tablet 1 mg PO QID #120 tabs 07/14/25 Rx clopidogrel 75 mg tablet (Plavix) 75 mg PO DAILY #30 t abs 04/04/25 07/14/25 Rx irbesartan 150 mg tablet See Rx Instructions .Route 0 04/04/25 07/14/25 Rx .COMPLEX #90 tabs amlodipine 5 mg tablet 5 mg PO DAILY #90 tabs 08/15 /25 11/06/25 Rx albuterol sulfate 90 mcg/actuation 2 inh inhalation Q4 H PRN COPD 07/14/25 07/14/25 History aerosol inhaler (Ventolin HFA) budesonide 0.5 mg/2 mL suspension 0.5 mg inhalation DA MADHAV COPD 07/14/25 07/14/25 History for nebulization bumetanide 2 mg tablet 1 mg PO DAILY edema 07/14/25 07/14/25 History Held on 04/28/25. Instructions: Resume on 05/09/25. Hold until follow up with PCP. Monitor for edema. multivitamin,rs-cazu-Ap-FA-min 1 tablet PO DAILY 07/1407/14/25 History nystatin 100,000 unit/gram topical 1 applic topical .Q 8hrs 07/14/25 07/14/25 History powder Allergies Allergy/AdvReac Type Severity Reaction Status Date / Time codeine Allergy Unknown Unknown Verified 07/14/25 04:37 niacin Allergy Unknown Unknown Verified 07/14/25 04:37 Penicillins Allergy Unknown Unknown Verified 07/14/25 09:36 ciprofloxacin AdvReac Mild Nausea Verified 07/14/25 04:37 Vital Signs Vital Signs - 24 hr 07/13/25 20:42 07/13/25 22:49 07/14/25 00:25 Temperature 97.7 F Pulse Rate 80 96 99 Respiratory Rate 16 14 17 Blood Pressure 152/108 H 156/67 H 176/76 H Pulse Oximetry 100 100 99 Oxygen Delivery Room Air 07/14/25 05:48 07/14/25 08:00 07/14/25 08:14 Temperature 98.1 F Pulse Rate 86 91 92 Respiratory Rate 20 18 18 Blood Pressure 165/76 H Pulse Oximetry 95 Oxygen Delivery 07/14/25 14:00 Temperature 99.0 F Pulse Rate 79 Respiratory Rate 18 Blood Pressure 126/56 L Pulse Oximetry 95 Oxygen Delivery Exam 2 Narrative: LLE with angry erythema, skin sloughing, edema, tenderness; no streaking. ?tinea pedis, weeping Results Labs 07/13/25 23:56 07/13/25 23:56 Labs: Short CBC 07/13/25 Range/Units 23:56 WBC 16.9 H (4.5-10.0) K/mm3 Hgb 9.2 L (12.0-15.0) g/dL Hct 29.6 L (37.0-47.0) % Plt Count 501 H (150-375) k/mm3 BMP 07/13/25 23:56 Sodium 136 L Potassium 4.1 Chloride 101 Carbon Dioxide 25 BUN 31 H Creatinine 1.35 H Glucose 131 H Calcium 9.2 Liver Function 07/13/25 Range/Units 23:56 Total Bilirubin 0.7 (0.2-1.3) mg/dL AST 23 (14-36) U/L ALT 15 (6-35) U/L Alkaline Phosphatase 96 (38-126) U/L Albumin 3.8 (3.5-5.1) g/dL Urine 07/14/25 Range/Units 00:24 Urine Color Yellow (Yellow) Urine Appearance Cloudy H (Clear) Urine pH 5.5 (5.0-9.0) Ur Specific [place] 1.012 (1.001-1.035) Urine Protein 1+ H (Negative) mg/dL Urine Glucose (UA) Negative (Negative) mg/dL
[2025-07-14] MEDS: ACETAMINOPHEN 500 MG TABLET PO (20:17)
[2025-07-14] MEDS: ALPRAZolam (*CRX) 0.5 MG TABLET 1 MG PO (20:17)
[2025-07-14] MEDS: ATORVASTATIN 20 MG TABLET PO (20:17)
[2025-07-14 21:39] VITALS: BP 113/68; PULSE 70; RESP 20; TEMP 36.4; O2SAT 96
[2025-07-15] MEDS: ACETAMINOPHEN 500 MG TABLET PO ×4 (00:38→18:46)
[2025-07-15 03:29] LABS: Hematocrit 24.2 % (37.0-47.0); Hemoglobin 7.5 g/dL (12.0-15.0); Mean Corpuscular HGB Conc 31.0 g/dl (32-36); Mean Corpuscular Hemoglobin 27.2 pg (26-34); Mean Corpuscular Volume 87.7 fl (80-100); Platelet Count Result 369 k/mm3 (150-375); Red Blood Count 2.76 M/mm3 (4.2-5.4); White Blood Count 9.7 K/mm3 (4.5-10.0)
[2025-07-15 03:49] LABS: Anion Gap 5 mmol/L (4-12); Blood Urea Nitrogen 26 mg/dL (7-17); Calcium 8.3 mg/dL (8.4-10.2); Carbon Dioxide 25 mmol/L (22-30); Chloride 106 mmol/L (98-107); Estimated CRCL calculation 37 ml/min; Estimated Glomerular Filt Rate 46; Glucose 95 mg/dL (65-110); Potassium 3.7 mmol/L (3.4-5.0); Sodium 136 mmol/L (137-145)
[2025-07-15] MEDS: ceFAZolin 2 GM in SODIUM CHLORIDE 0.9% IV 50 ML 100 ML IVPB ×3 (05:32→21:36)
[2025-07-15] MEDS: LEVOTHYROXINE SODIUM 75 MCG TABLET PO (05:33)
[2025-07-15] MEDS: ALPRAZolam (*CRX) 0.5 MG TABLET 1 MG PO ×2 (05:33→14:52)
[2025-07-15 06:00] VITALS: BP 124/45; PULSE 76; RESP 20; TEMP 36.5; O2SAT 92
[2025-07-15] MEDS: CLINDAMYCIN 900 MG/D5W 50 ML 900 MG/50 ML PIGGYBACK 50 MG IVPB ×3 (06:13→23:56)
[2025-07-15 07:48] VITALS: PULSE 70; RESP 18; O2SAT 94
[2025-07-15] MEDS: BUDESONIDE RESPULE NEB 0.5 MG/2 ML AMP INHALATION (07:48)
[2025-07-15 07:56] VITALS: PULSE 74; RESP 18
[2025-07-15] MEDS: ESCITALOPRAM OXALATE 10 MG TABLET PO (08:31)
[2025-07-15] MEDS: MONTELUKAST SODIUM 10 MG TABLET PO (08:32)
[2025-07-15] MEDS: PANTOPRAZOLE 40 MG TABLET PO (08:32)
[2025-07-15] MEDS: SPIRONOLACTONE 25 MG TABLET PO (08:32)
[2025-07-15] MEDS: IRBESARTAN 150 MG TABLET PO (08:32)
[2025-07-15] MEDS: CLOPIDOGREL BISULFATE 75 MG TABLET PO (08:32)
[2025-07-15] MEDS: ENOXAPARIN 40 MG/0.4 ML SYRINGE SUB-Q (08:33)
--- NOTE | 2025-07-15 10:16 | P.PNIM_ITS ---
Progress Note: A&P Assessment and Plan (1) Acute UTI: Code(s): N39.0 - Urinary tract infection, site not specified Status: Acute Assessment and Plan: -patient does not appear to be septic. Patient's heart rate is less than 90 and she has elevation to her blood pressure. She is afebrile. However shows leukocytosis with a white count 16.9. -UA reveals 3+ leukocyte esterase, wbc's greater than 100 and urine bacteria 4+. -the patient was started on Rocephin. -urine culture and sensitivity pending - blood cultures are pending. (2) Cellulitis of leg, left: Code(s): L03.116 - Cellulitis of left lower limb Status: Acute Assessment and Plan: -Started on Rocephin and vancomycin, now on ancef -infectious disease consulted, appreciate recommendations -blood cultures are pending. -she is nondiabetic and she has had recurrent cellulitis to the left lower extremity. Pain medication adjusted (3) HTN (hypertension): Qualifiers: Hypertension type: primary hypertension Qualified Code(s): I10 - Essential (primary) hypertension Code(s): I10 - Essential (primary) hypertension Status: Acute Assessment and Plan: -current blood pressure is 165/76. -continue with Norvasc -continue with hydralazine -continue with irbesartan (4) Heart failure with preserved ejection fraction: Qualifiers: Heart failure chronicity: chronic Qualified Code(s): I50.32 - Chronic diastolic (congestive) heart failure Code(s): I50.30 - Unspecified diastolic (congestive) heart failure Status: Acute Assessment and Plan: Euvolemic -continue with irbesartan -strict I and O -continue with spironolactone (5) Hyperlipidemia: Qualifiers: Hyperlipidemia type: pure hypercholesterolemia Qualified Code(s): E78.00 - Pure hypercholesterolemia, unspecified Code(s): E78.5 - Hyperlipidemia, unspecified Status: Acute Assessment and Plan: -continue with atorvastatin (6) Hypothyroidism: Qualifiers: Hypothyroidism type: acquired Qualified Code(s): E03.9 - Hypothyroidism, unspecified Code(s): E03.9 - Hypothyroidism, unspecified Status: Acute Assessment and Plan: -continue levothyroxine. (7) Anemia in chronic kidney disease: Qualifiers: Chronic kidney disease stage: stage 4 (severe) Qualified Code(s): N18.4 - Chronic kidney disease, stage 4 (severe); D63.1 - Anemia in chronic kidney disease Code(s): N18.9 - Chronic kidney disease, unspecified; D63.1 - Anemia in chronic kidney disease Status: Acute Assessment and Plan: -patient is at her baseline appears to be stable. -daily CBCs. Time Spent With Patient Time: 56 minutes Subjective Date/time seen: 07/15/25 14:10 Interval history: Still having pain to left leg, overall erythema improving. Reporting constipation for 3 days, starting miralax, senna, bisacodyl Reason for hospitalization 89-year-old female history of COPD, DVT, hypothyroidism presents the hospital with left lower extremity cellulitis and UTI started on Rocephin and vancomycin. Reporting continued pain, not much improved today Exam Narrative: General: well appearing, appears stated age. HEENT: normocephalic, atraumatic. Mucous membranes moist. EOMI, PERRLA, bilateral sclera anicteric, no conjunctival injection. Neck supple without JVD, lymphadenopathy, or bruit. Respiratory: clear bilaterally. No rales/rhonic/wheezes. Cardiovascular: Regular rate and rhythm, normal S1-S2. No murmurs, rubs, or clicks. PMI is nondisplaced, capillary refill less than 3 second. Abdomen: Soft, round, no pulsatile masses, nondistended and nontender. No rebound, no guarding. Bowel sounds present to all four quadrants. No high pitch or tinkling sounds, resonant to percussion. Extremities: No cyanosis, clubbing, or edema present. Pulses are palpable 2/2. Left lower extremity erythema painful to palpation Neuro: Alert and orientated x 4. PERRLA. Cranial nerves 2-12 intact without focal deficit. Skin: Warm, dry, and intact, without rash, erythema, or lesion. Psych: pleasant, cooperative, normal speech, normal affect, no hallucinations, no dysarthia Objective Data Vital Signs Vital Signs: Vital Signs - 24 hr 07/14/25 14:00 07/14/25 21:39 07/14/25 22:13 Temperature 99.0 F 97.5 F L Pulse Rate 79 70 Respiratory Rate 18 20 Blood Pressure 126/56 L 113/68 Pulse Oximetry 95 96 Oxygen Delivery Room Air 07/15/25 06:00 07/15/25 07:48 07/15/25 07:48 Temperature 97.7 F Pulse Rate 76 70 Respiratory Rate 20 18 Blood Pressure 124/45 L Pulse Oximetry 92 94 Oxygen Delivery Room Air 07/15/25 07:56 Temperature Pulse Rate 74 Respiratory Rate 18 Blood Pressure Pulse Oximetry Oxygen Delivery Intake/Output Intake/Output: Intake & Output 07/12/25 07/13/25 07/14/25 07/15/25 23:59 23:59 23:59 23:59 Intake Total 2210 608 Output Total 675 300 Balance 1535 308 Meds/Results Medications: Active Medications Generic Name Dose Route Start Last Admin Trade Name Freq PRN Reason Stop Dose Admin Acetaminophen 500 mg 07/14/25 12:35 07/15/25 05:33 Acetaminophen 500 Mg Tablet PO 500 mg Q6H KAVITHA Administration Albuterol 2.5 mg 07/14/25 06:13 07/14/25 08:03 Albuterol Sulfate Neb 2.5 Mg/3 Ml Inh INHALATION 2.5 mg Q4H PRN Administration Shortness Of Breath Or Wheezing Alprazolam 1 mg 07/14/25 18:41 07/15/25 08:32 Alprazolam (*Crx) 0.5 Mg Tablet PO 1 mg QID PRN Administration Anxiety Amlodipine Besylate 5 mg 07/14/25 09:00 07/15/25 08:31 Amlodipine Besylate 5 Mg Tablet PO 5 mg DAILY KAVITHA Administration Atorvastatin Calcium 20 mg 07/14/25 21:00 07/14/25 20:17 Atorvastatin 20 Mg Tablet PO 20 mg QHS KAVITHA Administration Budesonide 0.5 mg 07/14/25 08:00 07/15/25 07:48 Budesonide Respule Neb 0.5 Mg/2 Ml Amp INHALATION 0.5 mg DAILYRT KAVITHA Administration Calcitriol 0.25 mcg 07/15/25 09:00 07/15/25 08:38 Calcitriol 0.25 Mcg Capsule PO 0.25 mcg [id number]@0900 KAVITHA Administration Clopidogrel Bisulfate 75 mg 07/14/25 09:00 07/15/25 08:32 Clopidogrel Bisulfate 75 Mg Tablet PO 75 mg DAILY KAVITHA Administration Enoxaparin Sodium 40 mg 07/15/25 09:00 07/15/25 08:33 Enoxaparin 40 Mg/0.4 Ml Syringe SUB-Q 40 mg DAILY KAVITHA Administration Escitalopram Oxalate 10 mg 07/14/25 09:00 07/15/25 08:31 Escitalopram Oxalate 10 Mg Tablet PO 10 mg QAM KAVITHA Administration Hydralazine HCl 10 mg 07/14/25 06:13 Hydralazine 10 Mg Tablet PO TID PRN Hypertension Cefazolin Sodium 2 gm/ Sodium 50 mls @ 100 mls/hr 07/14/25 14:00 07/15/25 05:32 Chloride IVPB 100 mls/hr Q8H KAVITHA Administration Clindamycin Phosphate 900 mg in 50 mls @ 50 mls/hr 07/14/25 14:00 07/15/25 06:13 Cleocin 900 Mg/D5w 50 Ml IVPB 50 mls/hr Q8H KAVITHA Administration Irbesartan 150 mg 07/14/25 09:00 07/15/25 08:32 Irbesartan 150 Mg Tablet PO 150 mg QAM KAVITHA Administration Levothyroxine Sodium 75 mcg 07/14/25 06:50 07/15/25 05:33 Levothyroxine Sodium 75 Mcg Tablet PO 75 mcg DAILY@0630 KAVITHA Administration Montelukast Sodium 10 mg 07/14/25 09:00 07/15/25 08:32 Montelukast Sodium 10 Mg Tablet PO 10 mg DAILY KAVITHA Administration Pantoprazole Sodium 40 mg 07/14/25 09:00 07/15/25 08:32 Pantoprazole 40 Mg Tablet PO 08/13/25 08:59 40 mg DAILY KAVITHA Administration Spironolactone 25 mg 07/14/25 09:00 07/15/25 08:32 Spironolactone 25 Mg Tablet PO 25 mg DAILY KAVITHA Administration Tramadol HCl 50 mg 07/14/25 06:13 07/14/25 23:46 Tramadol Hcl (*Crx) 50 Mg Tablet PO 50 mg Q8H PRN Administration Pain 4-6 Radiology Results: ITS Impressions Head CT 07/14/25 07:24 IMPRESSION: 1. Stable moderate nonspecific cerebral white matter disease, which likely represents chronic small vessel ischemic disease. Chest X-Ray 07/14/25 08:19 IMPRESSION: 1. Mild bibasilar atelectasis. Labs Labs: Laboratory Results - last 24 hr 07/15/25 03:25 WBC 9.7 RBC 2.76 L Hgb 7.5 L Hct 24.2 L MCV 87.7 MCH 27.2 MCHC 31.0 L RDW 15.1 H Plt Count 369 MPV 8.6 Sodium 136 L Potassium 3.7 Chloride 106 Carbon Dioxide 25 Anion Gap 5 BUN 26 H Creatinine 1.12 H Estim Creat Clear Calc 37 Estimated GFR 46 L Glucose 95 Calcium 8.3 L Quality VTE Prophylaxis VTE prophylaxis: pharmacologic ordered Hospitalist [facility] Advance Care Plan I have confirmed that the patient's Advanced Care Plan is present, code status is documented, or surrogate decision maker is listed in patient medical record.: Yes Medication Reconciliation I have utilized all available resources to obtain, update and review the patients current medications (includes all prescriptions, OTC, herbals, cannabis, and nutritional supplements).: Yes
[2025-07-15] MEDS: traMADol HCL (*CRX) 50 MG TABLET PO (12:16)
[2025-07-15 15:00] VITALS: BP 124/47; PULSE 72; RESP 18; TEMP 36.6; O2SAT 97
--- NOTE | 2025-07-15 16:12 | WPDINFPN2 ---
Progress Note: A&P Assessment and Plan (1) Cellulitis of leg, left: Code(s): L03.116 - Cellulitis of left lower limb Status: Acute Plan ASSESSMENT: 1. LLE cellulitis--better 2. pyuria, r/o UTI 3. CKD 4. HTN, HL, DVT, hypothyroidism, COPD RECOMMENDATIONS: -continue ancef and clindamycin -f/u on urine and blood cxs d/w pharmacy staff Exam done via telemedicine with the aid of a HIPPA protected audio/visual interface. Patient was at [facility] in [place], [place] while I was in my office in [place]. With patient consent. Subjective Date/time seen: 07/15/25 16:12 Interval history: +pain in leg WBC count down to normal today no fevers Exam Narrative: leg less red and less edematous Objective Data Vital Signs Vital Signs: Vital Signs - 24 hr 07/14/25 21:39 07/14/25 22:13 07/15/25 06:00 Temperature 97.5 F L 97.7 F Pulse Rate 70 76 Respiratory Rate 20 20 Blood Pressure 113/68 124/45 L Pulse Oximetry 96 92 Oxygen Delivery Room Air 07/15/25 07:48 07/15/25 07:48 07/15/25 07:56 Temperature Pulse Rate 70 74 Respiratory Rate 18 18 Blood Pressure Pulse Oximetry 94 Oxygen Delivery Room Air 07/15/25 15:00 Temperature 97.8 F Pulse Rate 72 Respiratory Rate 18 Blood Pressure 124/47 L Pulse Oximetry 97 Oxygen Delivery Intake/Output Intake/Output: Intake & Output 07/12/25 07/13/25 07/14/25 07/15/25 23:59 23:59 23:59 23:59 Intake Total 2210 1298 Output Total 673 650 Balance 1535 648 Meds/Results Medications: Active Medications Generic Name Dose Route Start Last Admin Trade Name Freq PRN Reason Stop Dose Admin Acetaminophen 500 mg 07/14/25 12:35 07/15/25 13:16 Acetaminophen 500 Mg Tablet PO 500 mg Q6H KAVITHA Administration Albuterol 2.5 mg 07/14/25 06:13 07/14/25 08:03 Albuterol Sulfate Neb 2.5 Mg/3 Ml Inh INHALATION 2.5 mg Q4H PRN Administration Shortness Of Breath Or Wheezing Alprazolam 1 mg 07/14/25 18:41 07/15/25 14:52 Alprazolam (*Crx) 0.5 Mg Tablet PO 1 mg QID PRN Administration Anxiety Amlodipine Besylate 5 mg 07/14/25 09:00 07/15/25 08:31 Amlodipine Besylate 5 Mg Tablet PO 5 mg DAILY KAVITHA Administration Atorvastatin Calcium 20 mg 07/14/25 21:00 07/14/25 20:17 Atorvastatin 20 Mg Tablet PO 20 mg QHS KAVITHA Administration Budesonide 0.5 mg 07/14/25 08:00 07/15/25 07:48 Budesonide Respule Neb 0.5 Mg/2 Ml Amp INHALATION 0.5 mg DAILYRT KAVITHA Administration Calcitriol 0.25 mcg 07/15/25 09:00 07/15/25 08:38 Calcitriol 0.25 Mcg Capsule PO 0.25 mcg [id number]@0900 KAVITHA Administration Clopidogrel Bisulfate 75 mg 07/14/25 09:00 07/15/25 08:32 Clopidogrel Bisulfate 75 Mg Tablet PO 75 mg DAILY KAVITHA Administration Enoxaparin Sodium 40 mg 07/15/25 09:00 07/15/25 08:33 Enoxaparin 40 Mg/0.4 Ml Syringe SUB-Q 40 mg DAILY KAVITHA Administration Escitalopram Oxalate 10 mg 07/14/25 09:00 07/15/25 08:31 Escitalopram Oxalate 10 Mg Tablet PO 10 mg QAM KAVITHA Administration Hydralazine HCl 10 mg 07/14/25 06:13 Hydralazine 10 Mg Tablet PO TID PRN Hypertension Cefazolin Sodium 2 gm/ Sodium 50 mls @ 100 mls/hr 07/14/25 14:00 07/15/25 16:04 Chloride IVPB 100 mls/hr Q8H KAVITHA Administration Clindamycin Phosphate 900 mg in 50 mls @ 50 mls/hr 07/14/25 14:00 07/15/25 15:09 Cleocin 900 Mg/D5w 50 Ml IVPB 50 mls/hr Q8H KAVITHA Administration Irbesartan 150 mg 07/14/25 09:00 07/15/25 08:32 Irbesartan 150 Mg Tablet PO 150 mg QAM KAVITHA Administration Levothyroxine Sodium 75 mcg 07/14/25 06:50 07/15/25 05:33 Levothyroxine Sodium 75 Mcg Tablet PO 75 mcg DAILY@0630 KAVITHA Administration Montelukast Sodium 10 mg 11/06/25 09:00 07/15/25 08:32 Montelukast Sodium 10 Mg Tablet PO 10 mg DAILY KAVITHA Administration Pantoprazole Sodium 40 mg 07/14/25 09:00 07/15/25 08:32 Pantoprazole 40 Mg Tablet PO 08/13/25 08:59 40 mg DAILY KAVITHA Administration Spironolactone 25 mg 07/14/25 09:00 07/15/25 08:32 Spironolactone 25 Mg Tablet PO 25 mg DAILY KAVITHA Administration Tramadol HCl 50 mg 07/14/25 06:13 07/15/25 12:16 Tramadol Hcl (*Crx) 50 Mg Tablet PO 50 mg Q8H PRN Administration Pain 4-6 Radiology Results: ITS Impressions Head CT 07/14/25 07:24 IMPRESSION: 1. Stable moderate nonspecific cerebral white matter disease, which likely represents chronic small vessel ischemic disease. Chest X-Ray 07/14/25 08:19 IMPRESSION: 1. Mild bibasilar atelectasis. Labs Labs: Laboratory Results - last 24 hr 07/15/25 03:25 WBC 9.7 RBC 2.76 L Hgb 7.5 L Hct 24.2 L MCV 87.7 MCH 27.2 MCHC 31.0 L RDW 15.1 H Plt Count 369 MPV 8.6 Sodium 136 L Potassium 3.7 Chloride 106 Carbon Dioxide 25 Anion Gap 5 BUN 26 H Creatinine 1.12 H Estim Creat Clear Calc 37 Estimated GFR 46 L Glucose 95 Calcium 8.3 L
[2025-07-15] MEDS: SENNOSIDES 8.6 MG TABLET PO (21:35)
[2025-07-15] MEDS: ACETAMINOPHEN 500 MG TABLET 1000 MG PO (21:36)
[2025-07-15] MEDS: ATORVASTATIN 20 MG TABLET PO (21:36)
[2025-07-15 22:00] VITALS: BP 147/55; PULSE 75; RESP 20; TEMP 36.6; O2SAT 100
[2025-07-16] MEDS: ALPRAZolam (*CRX) 0.5 MG TABLET 1 MG PO ×2 (00:04→21:26)
--- NOTE | 2025-07-16 02:13 | PC.NURSE ---
Pt unable to successfully complete ordered ABt therapy r/t infiltration of IV site, Physician aware, N.O received for IV consult for midline.
[2025-07-16] MEDS: LEVOTHYROXINE SODIUM 75 MCG TABLET PO (05:33)
[2025-07-16 06:00] VITALS: BP 151/63; PULSE 80; RESP 20; TEMP 36.3; O2SAT 95
[2025-07-16 06:35] LABS: Hematocrit 25.9 % (37.0-47.0); Hemoglobin 8.0 g/dL (12.0-15.0); Mean Corpuscular HGB Conc 30.9 g/dl (32-36); Mean Corpuscular Hemoglobin 26.8 pg (26-34); Mean Corpuscular Volume 86.6 fl (80-100); Platelet Count Result 422 k/mm3 (150-375); Red Blood Count 2.99 M/mm3 (4.2-5.4); White Blood Count 10.6 K/mm3 (4.5-10.0)
[2025-07-16 06:58] LABS: Anion Gap 6 mmol/L (4-12); Blood Urea Nitrogen 20 mg/dL (7-17); Calcium 8.6 mg/dL (8.4-10.2); Carbon Dioxide 26 mmol/L (22-30); Chloride 105 mmol/L (98-107); Estimated CRCL calculation 40 ml/min; Estimated Glomerular Filt Rate 50; Glucose 104 mg/dL (65-110); Potassium 3.7 mmol/L (3.4-5.0); Sodium 137 mmol/L (137-145)
[2025-07-16 07:29] VITALS: PULSE 77; RESP 18
[2025-07-16] MEDS: BUDESONIDE RESPULE NEB 0.5 MG/2 ML AMP INHALATION (07:29)
[2025-07-16 07:39] VITALS: PULSE 79; RESP 18
[2025-07-16] MEDS: traMADol HCL (*CRX) 50 MG TABLET PO (09:22)
[2025-07-16] MEDS: CLOPIDOGREL BISULFATE 75 MG TABLET PO (09:23)
[2025-07-16] MEDS: IRBESARTAN 150 MG TABLET PO (09:23)
[2025-07-16] MEDS: ACETAMINOPHEN 500 MG TABLET 1000 MG PO ×4 (09:24→21:26)
[2025-07-16] MEDS: MONTELUKAST SODIUM 10 MG TABLET PO (09:24)
[2025-07-16] MEDS: PANTOPRAZOLE 40 MG TABLET PO (09:24)
[2025-07-16] MEDS: ESCITALOPRAM OXALATE 10 MG TABLET PO (09:24)
[2025-07-16] MEDS: SPIRONOLACTONE 25 MG TABLET PO (09:25)
[2025-07-16] MEDS: ENOXAPARIN 40 MG/0.4 ML SYRINGE SUB-Q (09:25)
[2025-07-16] MEDS: CLINDAMYCIN 900 MG/D5W 50 ML 900 MG/50 ML PIGGYBACK 50 MG IVPB ×2 (09:45→18:20)
[2025-07-16] MEDS: ceFAZolin 2 GM in SODIUM CHLORIDE 0.9% IV 50 ML 100 ML IVPB ×2 (10:02→17:38)
--- NOTE | 2025-07-16 10:08 | P.PNIM_ITS ---
Progress Note: A&P Assessment and Plan (1) Acute UTI: Code(s): N39.0 - Urinary tract infection, site not specified Status: Acute Assessment and Plan: -patient does not appear to be septic. Patient's heart rate is less than 90 and she has elevation to her blood pressure. She is afebrile. However shows leukocytosis with a white count 16.9. -UA reveals 3+ leukocyte esterase, wbc's greater than 100 and urine bacteria 4+. -the patient was started on Rocephin. -urine culture and sensitivity pending, growing GNB's--NGTD - blood cultures are pending. (2) Cellulitis of leg, left: Code(s): L03.116 - Cellulitis of left lower limb Status: Acute Assessment and Plan: -Started on Rocephin and vancomycin, now on ancef s/p clindamycin he -infectious disease consulted, appreciate recommendations -blood cultures are pending. -she is nondiabetic and she has had recurrent cellulitis to the left lower extremity. Pain medication adjusted (3) HTN (hypertension): Qualifiers: Hypertension type: primary hypertension Qualified Code(s): I10 - Essential (primary) hypertension Code(s): I10 - Essential (primary) hypertension Status: Acute Assessment and Plan: -current blood pressure is 165/76. -continue with Norvasc -continue with hydralazine -continue with irbesartan (4) Heart failure with preserved ejection fraction: Qualifiers: Heart failure chronicity: chronic Qualified Code(s): I50.32 - Chronic diastolic (congestive) heart failure Code(s): I50.30 - Unspecified diastolic (congestive) heart failure Status: Acute Assessment and Plan: Euvolemic -continue with irbesartan -strict I and O -continue with spironolactone (5) Hyperlipidemia: Qualifiers: Hyperlipidemia type: pure hypercholesterolemia Qualified Code(s): E78.00 - Pure hypercholesterolemia, unspecified Code(s): E78.5 - Hyperlipidemia, unspecified Status: Acute Assessment and Plan: -continue with atorvastatin (6) Hypothyroidism: Qualifiers: Hypothyroidism type: acquired Qualified Code(s): E03.9 - Hypothyroidism, unspecified Code(s): E03.9 - Hypothyroidism, unspecified Status: Acute Assessment and Plan: -continue levothyroxine. (7) Anemia in chronic kidney disease: Qualifiers: Chronic kidney disease stage: stage 4 (severe) Qualified Code(s): N18.4 - Chronic kidney disease, stage 4 (severe); D63.1 - Anemia in chronic kidney disease Code(s): N18.9 - Chronic kidney disease, unspecified; D63.1 - Anemia in chronic kidney disease Status: Acute Assessment and Plan: -patient is at her baseline appears to be stable. -daily CBCs. Time Spent With Patient Time: 59 minutes Subjective Date/time seen: 07/16/25 10:08 Interval history: Still having a lot of pain, but improved today. Considering palliative care options. Is DNR/DNI but was unsure if she would want escalation to ICU for pressors and a line if needed. However, doesn't want to come back and forth to the hospital. Feels tired and said she wants to go home (heisaacn). Would like to continue antibiotics for now. Will increase oxycodone for better pain control Reason for hospitalization 89-year-old female history of COPD, DVT, hypothyroidism presents the hospital with left lower extremity cellulitis and UTI started on Rocephin and vancomycin. Reporting continued pain, not much improved today Exam Narrative: General: well appearing, appears stated age. HEENT: normocephalic, atraumatic. Mucous membranes moist. EOMI, PERRLA, bilateral sclera anicteric, no conjunctival injection. Neck supple without JVD, lymphadenopathy, or bruit. Respiratory: clear bilaterally. No rales/rhonic/wheezes. Cardiovascular: Regular rate and rhythm, normal S1-S2. No murmurs, rubs, or clicks. PMI is nondisplaced, capillary refill less than 3 second. Abdomen: Soft, round, no pulsatile masses, nondistended and nontender. No rebound, no guarding. Bowel sounds present to all four quadrants. No high pitch or tinkling sounds, resonant to percussion. Extremities: No cyanosis, clubbing, or edema present. Pulses are palpable 2/2. Left lower extremity erythema painful to palpation Neuro: Alert and orientated x 4. PERRLA. Cranial nerves 2-12 intact without focal deficit. Skin: Warm, dry, and intact, without rash, erythema, or lesion. Psych: pleasant, cooperative, normal speech, normal affect, no hallucinations, no dysarthia Objective Data Vital Signs Vital Signs: Vital Signs - 24 hr 07/15/25 15:00 07/15/25 20:00 07/15/25 22:00 Temperature 97.8 F 97.9 F Pulse Rate 72 75 Respiratory Rate 18 20 Blood Pressure 124/47 L 147/55 H Pulse Oximetry 97 100 Oxygen Delivery Room Air 07/16/25 06:00 07/16/25 07:29 07/16/25 07:39 Temperature 97.3 F L Pulse Rate 80 77 79 Respiratory Rate 20 18 18 Blood Pressure 151/63 H Pulse Oximetry 95 Oxygen Delivery Intake/Output Intake/Output: Intake & Output 07/13/25 07/14/25 07/15/25 07/16/25 23:59 23:59 23:59 23:59 Intake Total 2210 1688 328.8 Output Total 675 900 500 Balance 1535 788 -171.2 Meds/Results Medications: Active Medications Generic Name Dose Route Start Last Admin Trade Name Freq PRN Reason Stop Dose Admin Acetaminophen 1,000 mg 07/15/25 21:00 07/16/25 09:24 Acetaminophen 500 Mg Tablet PO 1,000 mg QID KAVITHA Administration Albuterol 2.5 mg 07/14/25 06:13 07/14/25 08:03 Albuterol Sulfate Neb 2.5 Mg/3 Ml Inh INHALATION 2.5 mg Q4H PRN Administration Shortness Of Breath Or Wheezing Alprazolam 1 mg 07/14/25 18:41 07/16/25 00:04 Alprazolam (*Crx) 0.5 Mg Tablet PO 1 mg QID PRN Administration Anxiety Amlodipine Besylate 5 mg 07/14/25 09:00 07/16/25 09:24 Amlodipine Besylate 5 Mg Tablet PO 5 mg DAILY KAVITHA Administration Atorvastatin Calcium 20 mg 07/14/25 21:00 07/15/25 21:36 Atorvastatin 20 Mg Tablet PO 20 mg QHS KAVITHA Administration Bisacodyl 5 mg 07/16/25 09:00 07/16/25 09:27 Bisacodyl 5 Mg Tablet Ec PO Not Given QAM KAVITHA Budesonide 0.5 mg 07/14/25 08:00 07/16/25 07:29 Budesonide Respule Neb 0.5 Mg/2 Ml Amp INHALATION 0.5 mg DAILYRT KAVITHA Administration Calcitriol 0.25 mcg 07/15/25 09:00 07/15/25 08:38 Calcitriol 0.25 Mcg Capsule PO 0.25 mcg [id number]@0900 KAVITHA Administration Clopidogrel Bisulfate 75 mg 07/14/25 09:00 07/16/25 09:23 Clopidogrel Bisulfate 75 Mg Tablet PO 75 mg DAILY KAVITHA Administration Enoxaparin Sodium 40 mg 07/15/25 09:00 07/16/25 09:25 Enoxaparin 40 Mg/0.4 Ml Syringe SUB-Q 40 mg DAILY KAVITHA Administration Escitalopram Oxalate 10 mg 07/14/25 09:00 07/16/25 09:24 Escitalopram Oxalate 10 Mg Tablet PO 10 mg QAM KAVITHA Administration Hydralazine HCl 10 mg 07/14/25 06:13 Hydralazine 10 Mg Tablet PO TID PRN Hypertension Cefazolin Sodium 2 gm/ Sodium 50 mls @ 100 mls/hr 07/16/25 10:00 07/16/25 10:02 Chloride IVPB 100 mls/hr Q8H [facility] Administration Clindamycin Phosphate 900 mg in 50 mls @ 50 mls/hr 07/16/25 10:00 Cleocin 900 Mg/D5w 50 Ml IVPB Q8H [facility] Irbesartan 150 mg 07/14/25 09:00 07/16/25 09:23 Irbesartan 150 Mg Tablet PO 150 mg QAM [facility] Administration Levothyroxine Sodium 75 mcg 07/14/25 06:50 07/16/25 05:33 Levothyroxine Sodium 75 Mcg Tablet PO 75 mcg DAILY@0630 [facility] Administration Montelukast Sodium 10 mg 07/14/25 09:00 07/16/25 09:24 Montelukast Sodium 10 Mg Tablet PO 10 mg DAILY KAVITHA Administration Oxycodone HCl 5 mg 07/15/25 19:34 Oxycodone Hcl (*Crx) 5 Mg Tab Ir PO Q8H PRN Breakthrough Pain Pantoprazole Sodium 40 mg 07/14/25 09:00 07/16/25 09:24 Pantoprazole 40 Mg Tablet PO 12/06/25 08:59 40 mg DAILY KAVITHA Administration Polyethylene Glycol 17 gm 07/15/25 16:40 07/16/25 09:27 Polyethylene Glycol 3350 17 Gm Powd.Pack PO Not Given QAM KAVITHA Senna 8.6 mg 07/15/25 21:00 07/15/25 21:35 Sennosides 8.6 Mg Tablet PO 8.6 mg HS KAVITHA Administration Spironolactone 25 mg 07/14/25 09:00 07/16/25 09:25 Spironolactone 25 Mg Tablet PO 25 mg DAILY KAVITHA Administration Tramadol HCl 50 mg 07/14/25 06:13 07/16/25 09:22 Tramadol Hcl (*Crx) 50 Mg Tablet PO 50 mg Q8H PRN Administration 1st line for pain Radiology Results: ITS Impressions Head CT 07/14/25 07:24 IMPRESSION: 1. Stable moderate nonspecific cerebral white matter disease, which likely represents chronic small vessel ischemic disease. Chest X-Ray 07/14/25 08:19 IMPRESSION: 1. Mild bibasilar atelectasis. Labs Labs: Laboratory Results - last 24 hr 07/16/25 06:09 WBC 10.6 H RBC 2.99 L Hgb 8.0 L Hct 25.9 L MCV 86.6 MCH 26.8 MCHC 30.9 L RDW 14.9 H Plt Count 422 H MPV 8.8 Sodium 137 Potassium 3.7 Chloride 105 Carbon Dioxide 26 Anion Gap 6 BUN 20 H Creatinine 1.03 H Estim Creat Clear Calc 40 Estimated GFR 50 L Glucose 104 Calcium 8.6 Quality VTE Prophylaxis VTE prophylaxis: pharmacologic ordered Hospitalist [facility] Advance Care Plan I have confirmed that the patient's Advanced Care Plan is present, code status is documented, or surrogate decision maker is listed in patient medical record.: Yes Medication Reconciliation I have utilized all available resources to obtain, update and review the patients current medications (includes all prescriptions, OTC, herbals, cannabis, and nutritional supplements).: Yes
[2025-07-16 14:12] VITALS: BP 147/56; PULSE 93; RESP 18; TEMP 36.2; O2SAT 96
[2025-07-16] MEDS: oxyCODONE HCL (*CRX) 5 MG TAB IR PO (17:49)
[2025-07-16] MEDS: ATORVASTATIN 20 MG TABLET PO (21:26)
[2025-07-16 22:00] VITALS: BP 155/53; PULSE 77; RESP 18; TEMP 36.6; O2SAT 96
[2025-07-17] MEDS: ceFAZolin 2 GM in SODIUM CHLORIDE 0.9% IV 50 ML 100 ML IVPB ×3 (01:20→16:22)
[2025-07-17] MEDS: CLINDAMYCIN 900 MG/D5W 50 ML 900 MG/50 ML PIGGYBACK 50 MG IVPB ×3 (01:57→17:02)
[2025-07-17] MEDS: LEVOTHYROXINE SODIUM 75 MCG TABLET PO (05:40)
[2025-07-17 06:00] VITALS: BP 178/69; PULSE 88; RESP 18; TEMP 36.8; O2SAT 99
[2025-07-17] MEDS: BUDESONIDE RESPULE NEB 0.5 MG/2 ML AMP INHALATION (07:54)
[2025-07-17 07:55] VITALS: PULSE 90; RESP 18
[2025-07-17 08:00] VITALS: PULSE 89; RESP 18
--- NOTE | 2025-07-17 08:07 | P.PNIM_ITS ---
Progress Note: A&P Assessment and Plan (1) Acute UTI: Code(s): N39.0 - Urinary tract infection, site not specified Status: Acute Assessment and Plan: -patient does not appear to be septic. Patient's heart rate is less than 90 and she has elevation to her blood pressure. She is afebrile. However shows leukocytosis with a white count 16.9. -UA reveals 3+ leukocyte esterase, wbc's greater than 100 and urine bacteria 4+. -the patient was started on Rocephin. -urine culture and sensitivity pending, growing GNB's/Klebsiella - blood cultures are pending--NGTD --Changed ancef to Meropenem (2) Cellulitis of leg, left: Code(s): L03.116 - Cellulitis of left lower limb Status: Acute Assessment and Plan: -Started on Rocephin and vancomycin, was on ancef s/p clindamycin--Changed to meropenem for UTI but has been improving with ancef -infectious disease consulted, appreciate recommendations -blood cultures are pending. -she is nondiabetic and she has had recurrent cellulitis to the left lower extremity. Pain medication adjusted (3) HTN (hypertension): Qualifiers: Hypertension type: primary hypertension Qualified Code(s): I10 - Essential (primary) hypertension Code(s): I10 - Essential (primary) hypertension Status: Acute Assessment and Plan: -current blood pressure is 165/76. -continue with Norvasc -continue with hydralazine -continue with irbesartan (4) Heart failure with preserved ejection fraction: Qualifiers: Heart failure chronicity: chronic Qualified Code(s): I50.32 - Chronic diastolic (congestive) heart failure Code(s): I50.30 - Unspecified diastolic (congestive) heart failure Status: Acute Assessment and Plan: Euvolemic -continue with irbesartan -strict I and O -continue with spironolactone (5) Hyperlipidemia: Qualifiers: Hyperlipidemia type: pure hypercholesterolemia Qualified Code(s): E78.00 - Pure hypercholesterolemia, unspecified Code(s): E78.5 - Hyperlipidemia, unspecified Status: Acute Assessment and Plan: -continue with atorvastatin (6) Hypothyroidism: Qualifiers: Hypothyroidism type: acquired Qualified Code(s): E03.9 - Hypothyroidism, unspecified Code(s): E03.9 - Hypothyroidism, unspecified Status: Acute Assessment and Plan: -continue levothyroxine. (7) Anemia in chronic kidney disease: Qualifiers: Chronic kidney disease stage: stage 4 (severe) Qualified Code(s): N18.4 - Chronic kidney disease, stage 4 (severe); D63.1 - Anemia in chronic kidney disease Code(s): N18.9 - Chronic kidney disease, unspecified; D63.1 - Anemia in chronic kidney disease Status: Acute Assessment and Plan: -patient is at her baseline appears to be stable. -daily CBCs. Time Spent With Patient Time: 56 minutes Subjective Date/time seen: 07/17/25 08:07 Interval history: Nausea, added zofran prn Redness to left leg improving. Urine culture resistant. Changed to Meropenem pending ID follow up tomorrow BP above goal in the setting of pain. Still having some dysuria Reason for hospitalization 89-year-old female history of COPD, DVT, hypothyroidism presents the hospital with left lower extremity cellulitis and UTI started on Rocephin and vancomycin. Reporting continued pain, not much improved today Exam Narrative: General: well appearing, appears stated age. HEENT: normocephalic, atraumatic. Mucous membranes moist. EOMI, PERRLA, bilateral sclera anicteric, no conjunctival injection. Neck supple without JVD, lymphadenopathy, or bruit. Respiratory: clear bilaterally. No rales/rhonic/wheezes. Cardiovascular: Regular rate and rhythm, normal S1-S2. No murmurs, rubs, or clicks. PMI is nondisplaced, capillary refill less than 3 second. Abdomen: Soft, round, no pulsatile masses, nondistended and nontender. No rebound, no guarding. Bowel sounds present to all four quadrants. No high pitch or tinkling sounds, resonant to percussion. Extremities: No cyanosis, clubbing, or edema present. Pulses are palpable 2/2. Left lower extremity erythema painful to palpation Neuro: Alert and orientated x 4. PERRLA. Cranial nerves 2-12 intact without focal deficit. Skin: Warm, dry, and intact, without rash, erythema, or lesion. Psych: pleasant, cooperative, normal speech, normal affect, no hallucinations, no dysarthia Objective Data Vital Signs Vital Signs: Vital Signs - 24 hr 07/16/25 14:12 07/16/25 20:00 07/16/25 22:00 Temperature 97.1 F L 97.8 F Pulse Rate 93 77 Respiratory Rate 18 18 Blood Pressure 147/56 H 155/53 H Pulse Oximetry 96 96 Oxygen Delivery Room Air 07/17/25 06:00 07/17/25 07:55 07/17/25 08:00 Temperature 98.3 F Pulse Rate 88 90 89 Respiratory Rate 18 18 18 Blood Pressure 178/69 H Pulse Oximetry 99 Oxygen Delivery Intake/Output Intake/Output: Intake & Output 07/14/25 07/15/25 07/16/25 07/17/25 23:59 23:59 23:59 23:59 Intake Total 2210 1688 768.8 100 Output Total 031 707 7782 2250 Balance 1535 788 -481.2 -2150 Meds/Results Medications: Active Medications Generic Name Dose Route Start Last Admin Trade Name Freq PRN Reason Stop Dose Admin Acetaminophen 1,000 mg 07/15/25 21:00 07/16/25 21:26 Acetaminophen 500 Mg Tablet PO 1,000 mg QID KAVITHA Administration Albuterol 2.5 mg 07/14/25 06:13 07/14/25 08:03 Albuterol Sulfate Neb 2.5 Mg/3 Ml Inh INHALATION 2.5 mg Q4H PRN Administration Shortness Of Breath Or Wheezing Alprazolam 1 mg 07/14/25 18:41 07/16/25 21:26 Alprazolam (*Crx) 0.5 Mg Tablet PO 1 mg QID PRN Administration Anxiety Amlodipine Besylate 5 mg 07/14/25 09:00 07/16/25 09:24 Amlodipine Besylate 5 Mg Tablet PO 5 mg DAILY KAVITHA Administration Atorvastatin Calcium 20 mg 07/14/25 21:00 07/16/25 21:26 Atorvastatin 20 Mg Tablet PO 20 mg QHS KAVITHA Administration Bisacodyl 5 mg 07/16/25 09:00 07/16/25 09:27 Bisacodyl 5 Mg Tablet Ec PO Not Given QAM [facility] Budesonide 0.5 mg 07/14/25 08:00 07/17/25 07:54 Budesonide Respule Neb 0.5 Mg/2 Ml Amp INHALATION 0.5 mg DAILYRT KAVITHA Administration Calcitriol 0.25 mcg 07/15/25 09:00 07/15/25 08:38 Calcitriol 0.25 Mcg Capsule PO 0.25 mcg MoWeFr@0900 KAVITHA Administration Clopidogrel Bisulfate 75 mg 07/14/25 09:00 07/16/25 09:23 Clopidogrel Bisulfate 75 Mg Tablet PO 75 mg DAILY [facility] Administration Enoxaparin Sodium 40 mg 07/15/25 09:00 07/16/25 09:25 Enoxaparin 40 Mg/0.4 Ml Syringe SUB-Q 40 mg DAILY [facility] Administration Escitalopram Oxalate 10 mg 07/14/25 09:00 07/16/25 09:24 Escitalopram Oxalate 10 Mg Tablet PO 10 mg QAM [facility] Administration Hydralazine HCl 10 mg 07/14/25 06:13 Hydralazine 10 Mg Tablet PO TID PRN Hypertension Cefazolin Sodium 2 gm/ Sodium 50 mls @ 100 mls/hr 07/16/25 10:00 07/17/25 01:50 Chloride IVPB Infused Q8H [facility] Infusion Clindamycin Phosphate 900 mg in 50 mls @ 50 mls/hr 07/16/25 10:00 07/17/25 02:57 Cleocin 900 Mg/D5w 50 Ml IVPB Infused Q8H [facility] Infusion Irbesartan 150 mg 07/14/25 09:00 07/16/25 09:23 Irbesartan 150 Mg Tablet PO 150 mg QAM [facility] Administration Levothyroxine Sodium 75 mcg 07/14/25 06:50 07/17/25 05:40 Levothyroxine Sodium 75 Mcg Tablet PO 75 mcg DAILY@0630 [facility] Administration Montelukast Sodium 10 mg 07/14/25 09:00 07/16/25 09:24 Montelukast Sodium 10 Mg Tablet PO 10 mg DAILY [facility] Administration Ondansetron HCl 4 mg 07/17/25 08:06 Ondansetron Inj 4 Mg/2 Ml Vial IV PUSH Q4H PRN Nausea And Vomiting Oxycodone HCl 5 mg 07/16/25 17:11 Oxycodone Hcl (*Crx) 5 Mg Tab Ir PO Q4H PRN Moderate Pain (4-6) Oxycodone HCl 5 mg 07/16/25 17:13 07/16/25 17:49 Oxycodone Hcl (*Crx) 5 Mg Tab Ir PO 5 mg Q4H PRN Administration Severe Pain Oxycodone HCl 2.5 mg 07/16/25 17:14 Oxycodone Hcl (*Crx) 2.5 Mg Tab Ir PO Q4H PRN Severe Pain Pantoprazole Sodium 40 mg 07/14/25 09:00 07/16/25 09:24 Pantoprazole 40 Mg Tablet PO 08/13/25 08:59 40 mg DAILY KAVITHA Administration Polyethylene Glycol 17 gm 07/15/25 16:40 07/16/25 09:27 Polyethylene Glycol 3350 17 Gm Powd.Pack PO Not Given QAM KAVITHA Senna 8.6 mg 07/15/25 21:00 07/16/25 21:28 Sennosides 8.6 Mg Tablet PO Not Given HS KAVITHA Spironolactone 25 mg 07/14/25 09:00 07/16/25 09:25 Spironolactone 25 Mg Tablet PO 25 mg DAILY KAVITHA Administration Radiology Results: ITS Impressions Head CT 07/14/25 07:24 IMPRESSION: 1. Stable moderate nonspecific cerebral white matter disease, which likely represents chronic small vessel ischemic disease. Chest X-Ray 07/14/25 08:19 IMPRESSION: 1. Mild bibasilar atelectasis. Quality VTE Prophylaxis VTE prophylaxis: pharmacologic ordered Hospitalist [facility] Advance Care Plan I have confirmed that the patient's Advanced Care Plan is present, code status is documented, or surrogate decision maker is listed in patient medical record.: Yes Medication Reconciliation I have utilized all available resources to obtain, update and review the patients current medications (includes all prescriptions, OTC, herbals, cannabis, and nutritional supplements).: Yes
[2025-07-17] MEDS: ONDANSETRON INJ 4 MG/2 ML VIAL IV PUSH (08:12)
[2025-07-17] MEDS: ENOXAPARIN 40 MG/0.4 ML SYRINGE SUB-Q (08:17)
[2025-07-17] MEDS: IRBESARTAN 150 MG TABLET PO (08:18)
[2025-07-17] MEDS: ESCITALOPRAM OXALATE 10 MG TABLET PO (08:18)
[2025-07-17] MEDS: MONTELUKAST SODIUM 10 MG TABLET PO (08:18)
[2025-07-17] MEDS: BISACODYL 5 MG TABLET EC PO (08:18)
[2025-07-17] MEDS: ACETAMINOPHEN 500 MG TABLET 1000 MG PO ×4 (08:18→20:41)
[2025-07-17] MEDS: ALPRAZolam (*CRX) 0.5 MG TABLET 1 MG PO ×3 (08:18→21:42)
[2025-07-17] MEDS: PANTOPRAZOLE 40 MG TABLET PO (08:18)
[2025-07-17] MEDS: SPIRONOLACTONE 25 MG TABLET PO (08:18)
[2025-07-17] MEDS: CLOPIDOGREL BISULFATE 75 MG TABLET PO (08:18)
[2025-07-17 14:00] VITALS: BP 149/71; PULSE 82; RESP 18; TEMP 36.4; O2SAT 96
--- NOTE | 2025-07-17 14:05 | PCPTNOTE ---
pt refused PT evaluation. stated her L leg hurt too much and did not want to move her leg or get out of bed.
[2025-07-17] MEDS: ATORVASTATIN 20 MG TABLET PO (20:41)
[2025-07-17 21:25] VITALS: BP 166/55; PULSE 67; RESP 18; TEMP 37.1; O2SAT 95
[2025-07-17] MEDS: MEROPENEM 1 GM in SODIUM CHLORIDE 0.9% IV 100 ML 200 ML IVPB (21:48)
[2025-07-18] MEDS: CLINDAMYCIN 900 MG/D5W 50 ML 900 MG/50 ML PIGGYBACK 50 MG IVPB ×2 (01:19→10:21)
[2025-07-18 05:18] VITALS: BP 167/74; PULSE 81; RESP 18; TEMP 37; O2SAT 96
[2025-07-18] MEDS: LEVOTHYROXINE SODIUM 75 MCG TABLET PO (05:35)
[2025-07-18 06:46] LABS: Hematocrit 26.0 % (37.0-47.0); Hemoglobin 8.0 g/dL (12.0-15.0); Immature Granulocyte Percent A 3.1 % (0-0.5); Lymphocytes Absolute Auto 1.07 K/mm3 (0.9-3.2); Mean Corpuscular HGB Conc 30.8 g/dl (32-36); Mean Corpuscular Hemoglobin 26.7 pg (26-34); Mean Corpuscular Volume 86.7 fl (80-100); Nucleated Red Blood Cells Absolute Auto 0.000 K/mm3 (0.0-0.012); Nucleated Red Blood Cells Perc 0.0 % (0.0-0.2); Platelet Count Result 463 k/mm3 (150-375); Red Blood Count 3.00 M/mm3 (4.2-5.4); White Blood Count 12.5 K/mm3 (4.5-10.0)
[2025-07-18 07:10] LABS: Anion Gap 5 mmol/L (4-12); Blood Urea Nitrogen 16 mg/dL (7-17); CRP 2.9 mg/dL (<1.0); Calcium 8.6 mg/dL (8.4-10.2); Carbon Dioxide 26 mmol/L (22-30); Chloride 106 mmol/L (98-107); Estimated CRCL calculation 40 ml/min; Estimated Glomerular Filt Rate 52; Glucose 91 mg/dL (65-110); Magnesium 1.6 mg/dL (1.6-2.3); Potassium 3.7 mmol/L (3.4-5.0); Sodium 137 mmol/L (137-145)
[2025-07-18 08:16] VITALS: PULSE 86; RESP 18
[2025-07-18] MEDS: BUDESONIDE RESPULE NEB 0.5 MG/2 ML AMP INHALATION (08:16)
[2025-07-18 08:21] VITALS: PULSE 87; RESP 18
[2025-07-18] MEDS: CLOPIDOGREL BISULFATE 75 MG TABLET PO (08:38)
[2025-07-18] MEDS: PANTOPRAZOLE 40 MG TABLET PO (08:38)
[2025-07-18] MEDS: ACETAMINOPHEN 500 MG TABLET 1000 MG PO ×4 (08:38→20:59)
[2025-07-18] MEDS: MONTELUKAST SODIUM 10 MG TABLET PO (08:38)
[2025-07-18] MEDS: IRBESARTAN 150 MG TABLET PO (08:39)
[2025-07-18] MEDS: ESCITALOPRAM OXALATE 10 MG TABLET PO (08:39)
[2025-07-18] MEDS: SPIRONOLACTONE 25 MG TABLET PO (08:39)
[2025-07-18] MEDS: oxyCODONE HCL (*CRX) 5 MG TAB IR PO ×2 (08:44→15:48)
[2025-07-18] MEDS: MEROPENEM 1 GM in SODIUM CHLORIDE 0.9% IV 100 ML 200 ML IVPB ×2 (09:20→21:05)
[2025-07-18] MEDS: ENOXAPARIN 40 MG/0.4 ML SYRINGE SUB-Q (09:53)
--- NOTE | 2025-07-18 11:19 | P.PNINF_ITS ---
Progress Note: A&P Assessment and Plan (1) Cellulitis of leg, left: Code(s): L03.116 - Cellulitis of left lower limb Status: Acute (2) Acute UTI: Code(s): N39.0 - Urinary tract infection, site not specified Status: Acute (3) Klebsiella pneumoniae [k. pneumoniae] as the cause of diseases classified elsewhere: Code(s): B96.1 - Klebsiella pneumoniae [K. pneumoniae] as the cause of diseases classified elsewhere Status: Acute Plan ASSESSMENT: 1. LLE cellulitis--better 2. Klebsiella (ESBL, MDR) UTI --on meropenem 3. CKD 4. HTN, HL, DVT, hypothyroidism, COPD RECOMMENDATIONS: -continue meropenem, day 2 of 7. Will discontinue clindamycin. d/w pharmacy staff Exam done via telemedicine with the aid of a HIPPA protected audio/visual interface. Patient was at [facility] in [place], [place] while I was in my office in [place]. With patient consent. Subjective Date/time seen: 07/18/25 11:19 Interval history: 07/18/2025: Afebrile but with white blood cell count slightly increased to 12.5 today. Cefazolin changed to meropenem last night. Remains on clindamycin. Urine 07/14 with greater than 100 wbc's. Urine culture 07/14 positive ESBL, MDR Klebsiella Sensitive to meropenem. Review of Systems Review of Systems: All systems reviewed & are unremarkable except as noted in HPI and below Exam Narrative: Awake and alert and lying in bed. Nontoxic. No respiratory difficulty. No significant abdominal distention. Left leg with decreased erythema since admission. Also with decrease in edema. Distal leg stasis dermatitis with hemosiderin deposition and skin flaking persists. Objective Data Vital Signs Vital Signs: Vital Signs - 24 hr 07/17/25 14:00 07/17/25 20:00 07/17/25 21:25 Temperature 97.6 F 98.8 F Pulse Rate 82 67 Respiratory Rate 18 18 Blood Pressure 149/71 H 166/55 H Pulse Oximetry 96 95 Oxygen Delivery Room Air 07/18/25 05:18 07/18/25 08:16 07/18/25 08:21 Temperature 98.6 F Pulse Rate 81 86 87 Respiratory Rate 18 18 18 Blood Pressure 167/74 H Pulse Oximetry 96 Oxygen Delivery Intake/Output Intake/Output: Intake & Output 11/07/25 11/08/25 11/09/25 11/10/25 23:59 23:59 23:59 23:59 Intake Total 1688 768.8 813 840 Output Total 900 1250 4050 300 Balance 788 -481.2 -3237 540 Meds/Results Medications: Active Medications Generic Name Dose Route Start Last Admin Trade Name Freq PRN Reason Stop Dose Admin Acetaminophen 1,000 mg 07/15/25 21:00 07/18/25 08:38 Acetaminophen 500 Mg Tablet PO 1,000 mg QID KAVITHA Administration Albuterol 2.5 mg 07/14/25 06:13 07/14/25 08:03 Albuterol Sulfate Neb 2.5 Mg/3 Ml Inh INHALATION 2.5 mg Q4H PRN Administration Shortness Of Breath Or Wheezing Alprazolam 1 mg 07/14/25 18:41 07/17/25 21:42 Alprazolam (*Crx) 0.5 Mg Tablet PO 1 mg QID PRN Administration Anxiety Amlodipine Besylate 5 mg 07/14/25 09:00 07/18/25 08:39 Amlodipine Besylate 5 Mg Tablet PO 5 mg DAILY KAVITHA Administration Atorvastatin Calcium 20 mg 07/14/25 21:00 07/17/25 20:41 Atorvastatin 20 Mg Tablet PO 20 mg QHS KAVITHA Administration Bisacodyl 5 mg 07/16/25 09:00 07/18/25 10:31 Bisacodyl 5 Mg Tablet Ec PO Not Given QAM [facility] Budesonide 0.5 mg 07/14/25 08:00 07/18/25 08:16 Budesonide Respule Neb 0.5 Mg/2 Ml Amp INHALATION 0.5 mg DAILYRT KAVITHA Administration Calcitriol 0.25 mcg 07/15/25 09:00 07/15/25 08:38 Calcitriol 0.25 Mcg Capsule PO 0.25 mcg [id number]@0900 KAVITHA Administration Clopidogrel Bisulfate 75 mg 07/14/25 09:00 07/18/25 08:38 Clopidogrel Bisulfate 75 Mg Tablet PO 75 mg DAILY KAVITHA Administration Enoxaparin Sodium 40 mg 07/15/25 09:00 07/18/25 09:53 Enoxaparin 40 Mg/0.4 Ml Syringe SUB-Q 40 mg DAILY KAVITHA Administration Escitalopram Oxalate 10 mg 07/14/25 09:00 07/18/25 08:39 Escitalopram Oxalate 10 Mg Tablet PO 10 mg QAM KAVITHA Administration Hydralazine HCl 10 mg 07/14/25 06:13 Hydralazine 10 Mg Tablet PO TID PRN Hypertension Clindamycin Phosphate 900 mg in 50 mls @ 50 mls/hr 07/16/25 10:00 07/18/25 10:21 Cleocin 900 Mg/D5w 50 Ml IVPB 50 mls/hr Q8H KAVITHA Administration Meropenem 1 gm/ Sodium 100 mls @ 200 mls/hr 07/17/25 21:00 07/17/25 22:18 Chloride IVPB Infused Q12HR KAVITHA Infusion Irbesartan 150 mg 07/14/25 09:00 07/18/25 08:39 Irbesartan 150 Mg Tablet PO 150 mg QAM KAVITHA Administration Levothyroxine Sodium 75 mcg 07/14/25 06:50 07/18/25 05:35 Levothyroxine Sodium 75 Mcg Tablet PO 75 mcg DAILY@0630 KAVITHA Administration Montelukast Sodium 10 mg 07/14/25 09:00 07/18/25 08:38 Montelukast Sodium 10 Mg Tablet PO 10 mg DAILY KAVITHA Administration Ondansetron HCl 4 mg 07/17/25 08:06 07/17/25 08:12 Ondansetron Inj 4 Mg/2 Ml Vial IV PUSH 4 mg Q4H PRN Administration Nausea And Vomiting Oxycodone HCl 5 mg 07/16/25 17:11 07/18/25 08:44 Oxycodone Hcl (*Crx) 5 Mg Tab Ir PO 5 mg Q4H PRN Administration Moderate Pain (4-6) Oxycodone HCl 5 mg 07/16/25 17:13 07/16/25 17:49 Oxycodone Hcl (*Crx) 5 Mg Tab Ir PO 5 mg Q4H PRN Administration Severe Pain Oxycodone HCl 2.5 mg 07/16/25 17:14 Oxycodone Hcl (*Crx) 2.5 Mg Tab Ir PO Q4H PRN Severe Pain Pantoprazole Sodium 40 mg 07/14/25 09:00 07/18/25 08:38 Pantoprazole 40 Mg Tablet PO 08/13/25 08:59 40 mg DAILY KAVITHA Administration Polyethylene Glycol 17 gm 07/15/25 16:40 07/18/25 10:32 Polyethylene Glycol 3350 17 Gm Powd.Pack PO Not Given QAM KAVITHA Senna 8.6 mg 07/15/25 21:00 07/17/25 20:42 Sennosides 8.6 Mg Tablet PO Not Given HS KAVITHA Spironolactone 25 mg 07/14/25 09:00 07/18/25 08:39 Spironolactone 25 Mg Tablet PO 25 mg DAILY KAVITHA Administration Radiology Results: ITS Impressions Head CT 07/14/25 07:24 IMPRESSION: 1. Stable moderate nonspecific cerebral white matter disease, which likely represents chronic small vessel ischemic disease. Chest X-Ray 07/14/25 08:19 IMPRESSION: 1. Mild bibasilar atelectasis. Labs Labs: Laboratory Results - last 24 hr 07/18/25 06:11 WBC 12.5 H RBC 3.00 L Hgb 8.0 L Hct 26.0 L MCV 86.7 MCH 26.7 MCHC 30.8 L RDW 14.9 H Plt Count 463 H MPV 8.9 Immature Gran % (Auto) 3.1 H Neut % (Auto) 76.7 H Lymph % (Auto) 8.6 L [place] % (Auto) 8.0 Eos % (Auto) 3.0 Baso % (Auto) 0.6 Lymph # (Auto) 1.07 [place] # (Auto) 1.0 H Eos # (Auto) 0.4 H Baso # (Auto) 0.1 Abs Immat Gran (auto) 0.39 H Absolute Neuts (auto) 9.6 H Absolute Nucleated RBC 0.000 Nucleated RBC % 0.0 ESR 124 H Sodium 137 Potassium 3.7 Chloride 106 Carbon Dioxide 26 Anion Gap 5 BUN 16 Creatinine 1.01 H Estim Creat Clear Calc 40 Estimated GFR 52 L Glucose 91 Calcium 8.6 Phosphorus 3.6 Magnesium 1.6 C-Reactive Protein 2.9 H
[2025-07-18 14:00] VITALS: BP 154/87; PULSE 72; RESP 14; TEMP 36.9; O2SAT 96
--- NOTE | 2025-07-18 15:30 | P.PNIM_ITS ---
Progress Note: A&P Assessment and Plan (1) Acute UTI: Code(s): N39.0 - Urinary tract infection, site not specified Status: Acute Assessment and Plan: -patient does not appear to be septic. Patient's heart rate is less than 90 and she has elevation to her blood pressure. She is afebrile. However shows leukocytosis with a white count 16.9. -UA reveals 3+ leukocyte esterase, wbc's greater than 100 and urine bacteria 4+. -the patient was started on Rocephin. -urine culture and sensitivity pending, growing GNB's/Klebsiella - blood cultures are pending--NGTD --Changed ancef to Meropenem continue meropenem (2) Cellulitis of leg, left: Code(s): L03.116 - Cellulitis of left lower limb Status: Acute Assessment and Plan: -Started on Rocephin and vancomycin, was on ancef s/p clindamycin -- Changed to meropenem for UTI but has been improving with ancef -infectious disease consulted, appreciate recommendations -blood cultures are pending. -she is nondiabetic and she has had recurrent cellulitis to the left lower extremity. Pain medication adjusted (3) HTN (hypertension): Qualifiers: Hypertension type: primary hypertension Qualified Code(s): I10 - Essential (primary) hypertension Code(s): I10 - Essential (primary) hypertension Status: Acute Assessment and Plan: -current blood pressure is 165/76. -continue with Norvasc -continue with hydralazine -continue with irbesartan (4) Heart failure with preserved ejection fraction: Qualifiers: Heart failure chronicity: chronic Qualified Code(s): I50.32 - Chronic diastolic (congestive) heart failure Code(s): I50.30 - Unspecified diastolic (congestive) heart failure Status: Acute Assessment and Plan: Euvolemic -continue with irbesartan -strict I and O -continue with spironolactone i/o reviewed, VS reviewed. stable. continue to monitor (5) Hyperlipidemia: Qualifiers: Hyperlipidemia type: pure hypercholesterolemia Qualified Code(s): E78.00 - Pure hypercholesterolemia, unspecified Code(s): E78.5 - Hyperlipidemia, unspecified Status: Acute Assessment and Plan: -continue with atorvastatin (6) Hypothyroidism: Qualifiers: Hypothyroidism type: acquired Qualified Code(s): E03.9 - Hypothyroidism, unspecified Code(s): E03.9 - Hypothyroidism, unspecified Status: Acute Assessment and Plan: -continue levothyroxine. (7) Anemia in chronic kidney disease: Qualifiers: Chronic kidney disease stage: stage 4 (severe) Qualified Code(s): N18.4 - Chronic kidney disease, stage 4 (severe); D63.1 - Anemia in chronic kidney disease Code(s): N18.9 - Chronic kidney disease, unspecified; D63.1 - Anemia in chronic kidney disease Status: Acute Assessment and Plan: -patient is at her baseline appears to be stable. -daily CBCs. Time Spent With Patient Time with patient: 25 - 35 minutes Subjective Date/time seen: 07/18/25 15:30 Interval history: 07/18/2025: Afebrile but with white blood cell count slightly increased to 12.5 today. Cefazolin changed to meropenem last night. Remains on clindamycin. Continue antibiotics. Urine 07/14 with greater than 100 wbc's. Urine culture 07/14 positive ESBL, MDR Klebsiella Sensitive to meropenem. Review of Systems Review of Systems: 12 systems were reviewed and are negativ e except for as per HPI. ROS unobtainable: Yes unobtainable due to mental status Constitutional: Constitutional: Reports as per HPI and Reports no additional constitutional complaints Eyes: Eyes: Reports as per HPI and Reports no additional eye complaints ENT: Reports system reviewed and no additional complaints, except as documented and Reports Normal hearing present Cardiovascular: Cardiovascular: Reports no additional cardiovascular complaints Respiratory: Respiratory: Reports as per HPI and Reports no additional respiratory complaints Gastrointestinal: Gastrointestinal: Reports as per HPI and Reports no additional gastrointestinal complaints Genitourinary: Genitourinary: Reports no additional female genitourinary complaints Musculoskeletal: Musculoskeletal: Reports no additional musculoskeletal complaints Integumentary/Breasts: Skin/Breast: Reports system reviewed and no additional complaints, except as docu Neurologic: Reports system reviewed and no additional complaints, except as documented and Reports Normal hearing present Psychiatric: Psychiatric: Reports no additional psychiatric complaints and Reports as per HPI Hematologic/Lymphatic: Hematologic/Lymphatic: Reports no additional he matologic/lymphatic complaints Allergic/Immunologic: Allergic/Immunologic: Reports no additional allergic/immunologic complaints Exam Narrative: General: well appearing, appears stated age. HEENT: normocephalic, atraumatic. Mucous membranes moist. EOMI, PERRLA, bilateral sclera anicteric, no conjunctival injection. Neck supple without JVD, lymphadenopathy, or bruit. Respiratory: clear bilaterally. No rales/rhonic/wheezes. Cardiovascular: Regular rate and rhythm, normal S1-S2. No murmurs, rubs, or clicks. PMI is nondisplaced, capillary refill less than 3 second. Abdomen: Soft, round, no pulsatile masses, nondistended and nontender. No rebound, no guarding. Bowel sounds present to all four quadrants. No high pitch or tinkling sounds, resonant to percussion. Extremities: No cyanosis, clubbing, or edema present. Pulses are palpable 2/2. Left lower extremity erythema painful to palpation Neuro: Alert and orientated x 4. PERRLA. Cranial nerves 2-12 intact without focal deficit. Skin: Warm, dry, and intact, without rash, erythema, or lesion. Psych: pleasant, cooperative, normal speech, normal affect, no hallucinations, no dysarthia Const: General: cooperative, healthy appearing, comfortable, no acute distress, well developed, awake and average body habitus Nutritional Appearance: average body habitus Orientation/consciousness: oriented to person HENMT: Head: normal to inspection, No palpable skull fracture present, normocephalic, atraumatic and abrasion Eyes: General: appearance normal, both eyes and all related structures Alignment and Position: alignment normal Periorbital: periorbital findings normal Eyelids: eyelids normal Conjunctivae: conjunctivae normal Sclera: sclerae normal Cornea: corneas normal Pupils: Equal, round and reactive pupils present and Pupil accommodation reflex normal EOM: EOMs intact bilaterally Neck: Neck: normal visual inspection and full ROM Chest: Chest palpation & inspection: normal inspection of the chest Resp: Effort & Inspection: normal respiratory effort Auscultation: clear to auscultation bilaterally Percussion: percussion normal Cardio: Palpation: normal PMI Rate: regular rate Rhythm: regular rhythm Heart sounds: S1 normal heart sound present and S2 normal heart sound present Peripheral pulses: Peripheral pulses 2+ throughout GI: Inspection: normal to inspection Auscultation: normal bowel sounds Rectal Exam: deferred : General: Yes no CVA tenderness Back/Spine/Pelvis: Back: no CVA tenderness Skin: General skin exam: normal color Neuro: General: oriented to person Cranial nerves: Yes Equal, round and reactive pupils present and Yes Normal hearing present Extrem: General: normal to inspection Right upper extremity: normal to inspection and shoulder/upper arm Left upper extremity: normal to inspection and shoulder/upper arm Right lower extremity: normal to inspection Left lower extremity: normal to inspection Other: Left lower extremity erythematous, tender, with dry flaky skin just below the knee to her toes. One to 2+ pitting edema to left lower extremity. I was unable to check for pulse at this time as it is too painful for her. Psych: Appearance: grossly normal Mental Status: mental status grossly normal Speech and movement: Normal speech and movement present Affect: normal affect Objective Data Vital Signs Vital Signs: Vital Signs - 24 hr 07/17/25 20:00 07/17/25 21:25 07/18/25 05:18 Temperature 98.8 F 98.6 F Pulse Rate 67 81 Respiratory Rate 18 18 Blood Pressure 166/55 H 167/74 H Pulse Oximetry 95 96 Oxygen Delivery Room Air 07/18/25 08:16 07/18/25 08:21 07/18/25 14:00 Temperature 98.4 F Pulse Rate 86 87 72 Respiratory Rate 18 18 14 Blood Pressure 154/87 H Pulse Oximetry 96 Oxygen Delivery 07/18/25 14:05 07/18/25 14:20 Temperature Pulse Rate Respiratory Rate Blood Pressure Pulse Oximetry Oxygen Delivery Room Air Room Air Intake/Output Intake/Output: Intake & Output 07/15/25 07/16/25 07/17/25 07/18/25 23:59 23:59 23:59 23:59 Intake Total 1688 768.8 813 958 Output Total 900 1250 4050 300 Balance 788 -481.2 -3237 658 Meds/Results Medications: Active Medications Generic Name Dose Route Start Last Admin Trade Name Freq PRN Reason Stop Dose Admin Acetaminophen 1,000 mg 07/15/25 21:00 07/18/25 12:31 Acetaminophen 500 Mg Tablet PO 1,000 mg QID KAVITHA Administration Albuterol 2.5 mg 07/14/25 06:13 07/14/25 08:03 Albuterol Sulfate Neb 2.5 Mg/3 Ml Inh INHALATION 2.5 mg Q4H PRN Administration Shortness Of Breath Or Wheezing Alprazolam 1 mg 07/14/25 18:41 07/17/25 21:42 Alprazolam (*Crx) 0.5 Mg Tablet PO 1 mg QID PRN Administration Anxiety Amlodipine Besylate 5 mg 07/14/25 09:00 07/18/25 08:39 Amlodipine Besylate 5 Mg Tablet PO 5 mg DAILY KAVITHA Administration Atorvastatin Calcium 20 mg 07/14/25 21:00 07/17/25 20:41 Atorvastatin 20 Mg Tablet PO 20 mg QHS KAVITHA Administration Bisacodyl 5 mg 07/16/25 09:00 07/18/25 10:31 Bisacodyl 5 Mg Tablet Ec PO Not Given QAM KAVITHA Budesonide 0.5 mg 07/14/25 08:00 07/18/25 08:16 Budesonide Respule Neb 0.5 Mg/2 Ml Amp INHALATION 0.5 mg DAILYRT KAVITHA Administration Calcitriol 0.25 mcg 07/15/25 09:00 07/18/25 12:31 Calcitriol 0.25 Mcg Capsule PO 0.25 mcg MoWeFr@0900 KAVITHA Administration Clopidogrel Bisulfate 75 mg 07/14/25 09:00 07/18/25 08:38 Clopidogrel Bisulfate 75 Mg Tablet PO 75 mg DAILY KAVITHA Administration Enoxaparin Sodium 40 mg 07/15/25 09:00 07/18/25 09:53 Enoxaparin 40 Mg/0.4 Ml Syringe SUB-Q 40 mg DAILY KAVITHA Administration Escitalopram Oxalate 10 mg 07/14/25 09:00 07/18/25 08:39 Escitalopram Oxalate 10 Mg Tablet PO 10 mg QAM KAVITHA Administration Hydralazine HCl 10 mg 07/14/25 06:13 Hydralazine 10 Mg Tablet PO TID PRN Hypertension Meropenem 1 gm/ Sodium 100 mls @ 200 mls/hr 07/17/25 21:00 07/18/25 09:20 Chloride IVPB 07/24/25 09:29 200 mls/hr Q12HR KAVITHA Administration Irbesartan 150 mg 07/14/25 09:00 07/18/25 08:39 Irbesartan 150 Mg Tablet PO 150 mg QAM KAVITHA Administration Levothyroxine Sodium 75 mcg 07/14/25 06:50 07/18/25 05:35 Levothyroxine Sodium 75 Mcg Tablet PO 75 mcg DAILY@0630 KAVITHA Administration Montelukast Sodium 10 mg 07/14/25 09:00 07/18/25 08:38 Montelukast Sodium 10 Mg Tablet PO 10 mg DAILY KAVITHA Administration Ondansetron HCl 4 mg 07/17/25 08:06 07/17/25 08:12 Ondansetron Inj 4 Mg/2 Ml Vial IV PUSH 4 mg Q4H PRN Administration Nausea And Vomiting Oxycodone HCl 5 mg 07/16/25 17:11 07/18/25 08:44 Oxycodone Hcl (*Crx) 5 Mg Tab Ir PO 5 mg Q4H PRN Administration Moderate Pain (4-6) Oxycodone HCl 5 mg 07/16/25 17:13 07/16/25 17:49 Oxycodone Hcl (*Crx) 5 Mg Tab Ir PO 5 mg Q4H PRN Administration Severe Pain Oxycodone HCl 2.5 mg 07/16/25 17:14 Oxycodone Hcl (*Crx) 2.5 Mg Tab Ir PO Q4H PRN Severe Pain Pantoprazole Sodium 40 mg 07/14/25 09:00 07/18/25 08:38 Pantoprazole 40 Mg Tablet PO 08/13/25 08:59 40 mg DAILY KAVITHA Administration Polyethylene Glycol 17 gm 07/15/25 16:40 07/18/25 10:32 Polyethylene Glycol 3350 17 Gm Powd.Pack PO Not Given QAM KAVITHA Senna 8.6 mg 07/15/25 21:00 07/17/25 20:42 Sennosides 8.6 Mg Tablet PO Not Given HS KAVITHA Spironolactone 25 mg 07/14/25 09:00 07/18/25 08:39 Spironolactone 25 Mg Tablet PO 25 mg DAILY KAVITHA Administration Radiology Results: ITS Impressions Head CT 07/14/25 07:24 IMPRESSION: 1. Stable moderate nonspecific cerebral white matter disease, which likely represents chronic small vessel ischemic disease. Chest X-Ray 07/14/25 08:19 IMPRESSION: 1. Mild bibasilar atelectasis. Labs Labs: Laboratory Results - last 24 hr 07/18/25 06:11 WBC 12.5 H RBC 3.00 L Hgb 8.0 L Hct 26.0 L MCV 86.7 MCH 26.7 MCHC 30.8 L RDW 14.9 H Plt Count 463 H MPV 8.9 Immature Gran % (Auto) 3.1 H Neut % (Auto) 76.7 H Lymph % (Auto) 8.6 L [place] % (Auto) 8.0 Eos % (Auto) 3.0 Baso % (Auto) 0.6 Lymph # (Auto) 1.07 [place] # (Auto) 1.0 H Eos # (Auto) 0.4 H Baso # (Auto) 0.1 Abs Immat Gran (auto) 0.39 H Absolute Neuts (auto) 9.6 H Absolute Nucleated RBC 0.000 Nucleated RBC % 0.0 ESR 124 H Sodium 137 Potassium 3.7 Chloride 106 Carbon Dioxide 26 Anion Gap 5 BUN 16 Creatinine 1.01 H Estim Creat Clear Calc 40 Estimated GFR 52 L Glucose 91 Calcium 8.6 Phosphorus 3.6 Magnesium 1.6 C-Reactive Protein 2.9 H Quality VTE Prophylaxis VTE prophylaxis: pharmacologic ordered
--- NOTE | 2025-07-18 17:10 | PC.NURSE ---
The pt in , Lucille Vasques, called Dr. Gutierrez because she is greatly concerned that we are going to send her home and she is no better than she started.? I educated her, but she is very anxious.? She said the TV doctor (the infectious disease MD- she thinks TV, due to the ipad) needs to talk to Brenda.? She also called her grandson, who is? an anesthesiologist.? He called stating the anesthesiologist is asking to talk the RN caring for .? ?? I was mid dressing change, and took his call on riddhi thinking it was our anesthesiologist.? He kept asking if we were really going to send her with her leg bleeding and weeping.? I reassured her that we would not send her until she had her infection well controlled and wound changes to care for her leg.? I also reminded him that I am the RN and do not give orders or decide discharge times.? He feels she needs to stay here until her leg is no longer bleeding or weeping.? ?He also wants Dr Gutierrez and the ID doctor to come up with a plan for long-term antibiotics/forever so the infection does not return.? He states this infection is every 6-8 weeks.?? ID RN made aware to be able to voice concerns to ID MD.
[2025-07-18] MEDS: SENNOSIDES 8.6 MG TABLET PO (20:59)
[2025-07-18] MEDS: ATORVASTATIN 20 MG TABLET PO (20:59)
[2025-07-18] MEDS: ALPRAZolam (*CRX) 0.5 MG TABLET 1 MG PO (20:59)
[2025-07-18 21:36] VITALS: BP 170/62; PULSE 74; RESP 18; TEMP 36.9; O2SAT 95
[2025-07-19 04:09] VITALS: BP 174/71; PULSE 81; RESP 20; TEMP 36.6; O2SAT 96
[2025-07-19 06:05] LABS: Hematocrit 27.1 % (37.0-47.0); Hemoglobin 8.4 g/dL (12.0-15.0); Immature Granulocyte Percent A 4.6 % (0-0.5); Lymphocytes Absolute Auto 1.22 K/mm3 (0.9-3.2); Mean Corpuscular HGB Conc 31.0 g/dl (32-36); Mean Corpuscular Hemoglobin 26.7 pg (26-34); Mean Corpuscular Volume 86.0 fl (80-100); Nucleated Red Blood Cells Absolute Auto 0.000 K/mm3 (0.0-0.012); Nucleated Red Blood Cells Perc 0.0 % (0.0-0.2); Platelet Count Result 453 k/mm3 (150-375); Red Blood Count 3.15 M/mm3 (4.2-5.4); White Blood Count 8.7 K/mm3 (4.5-10.0)
[2025-07-19] MEDS: LEVOTHYROXINE SODIUM 75 MCG TABLET PO (06:06)
[2025-07-19 06:33] LABS: Anion Gap 6 mmol/L (4-12); Blood Urea Nitrogen 17 mg/dL (7-17); Calcium 8.8 mg/dL (8.4-10.2); Carbon Dioxide 25 mmol/L (22-30); Chloride 106 mmol/L (98-107); Estimated CRCL calculation 38 ml/min; Estimated Glomerular Filt Rate 47; Glucose 97 mg/dL (65-110); Potassium 3.8 mmol/L (3.4-5.0); Sodium 137 mmol/L (137-145)
[2025-07-19] MEDS: BUDESONIDE RESPULE NEB 0.5 MG/2 ML AMP INHALATION (08:05)
[2025-07-19 08:07] VITALS: PULSE 87; RESP 18
[2025-07-19 08:09] VITALS: PULSE 87; RESP 18; O2SAT 96
[2025-07-19 08:11] VITALS: PULSE 85; RESP 16
[2025-07-19] MEDS: SPIRONOLACTONE 25 MG TABLET PO (08:39)
[2025-07-19] MEDS: ACETAMINOPHEN 500 MG TABLET 1000 MG PO ×4 (08:39→20:32)
[2025-07-19] MEDS: CLOPIDOGREL BISULFATE 75 MG TABLET PO (08:39)
[2025-07-19] MEDS: ESCITALOPRAM OXALATE 10 MG TABLET PO (08:40)
[2025-07-19] MEDS: MONTELUKAST SODIUM 10 MG TABLET PO (08:40)
[2025-07-19] MEDS: ENOXAPARIN 40 MG/0.4 ML SYRINGE SUB-Q (08:40)
[2025-07-19] MEDS: IRBESARTAN 150 MG TABLET PO (08:40)
[2025-07-19] MEDS: MEROPENEM 1 GM in SODIUM CHLORIDE 0.9% IV 100 ML 200 ML IVPB ×2 (08:40→20:32)
[2025-07-19] MEDS: PANTOPRAZOLE 40 MG TABLET PO (08:40)
[2025-07-19] MEDS: BISACODYL 5 MG TABLET EC PO (08:41)
[2025-07-19] MEDS: ALPRAZolam (*CRX) 0.5 MG TABLET 1 MG PO ×2 (08:43→20:32)
--- NOTE | 2025-07-19 10:46 | WPDINFPN2 ---
Progress Note: A&P Assessment and Plan (1) Cellulitis of leg, left: Code(s): L03.116 - Cellulitis of left lower limb Status: Acute (2) Acute UTI: Code(s): N39.0 - Urinary tract infection, site not specified Status: Acute (3) Klebsiella pneumoniae [k. pneumoniae] as the cause of diseases classified elsewhere: Code(s): B96.1 - Klebsiella pneumoniae [K. pneumoniae] as the cause of diseases classified elsewhere Status: Acute Plan ASSESSMENT: 1. Acute LLE cellulitis--better-- and occurring on top of chronic left leg stasis dermatitis. 2. Klebsiella (ESBL, MDR) UTI --on meropenem, day 3 of 7. 3. CKD 4. HTN, HL, DVT, hypothyroidism, COPD RECOMMENDATIONS: --continue meropenem, day 3 of 7. This will provide complete treatment for ESBL/ MDR Klebsiella UTI and continued coverage for left leg cellulitis. Have discontinued clindamycin. --explained to patient that resolution of left leg cellulitis does not mean complete normalization in appearance of left leg in the setting of unilateral left leg chronic stasis dermatitis. -- discussed with Dr. Ferrell who is planning on updating the patient's son-in-law, Andrew. d/w pharmacy staff Exam done via telemedicine with the aid of a HIPPA protected audio/visual interface. Patient was at [facility] in [place], [place] while I was in my office in [place]. With patient consent. Subjective Date/time seen: 07/19/25 10:46 Interval history: 07/18/2025: Afebrile but with white blood cell count slightly increased to 12.5 today. Cefazolin changed to meropenem last night. Remains on clindamycin. 07/19/2025: Afebrile and white blood cell count decreased from 12.5-8.7. BUN 17 creatinine 1.09. Cellulitis improved but patient notes continued serous drainage in some bleeding from current left leg wounds. She states she has been dealing with cellulitis for the last 3 years. When asked if she needs intermittent episodes of acute inflammation by a normal-looking skin she states that for the last 3 years her left leg has exhibited edema and erythema which sounds consistent with chronic left leg stasis dermatitis. Urine 07/14 with greater than 100 wbc's. Urine culture 11/6 positive ESBL, MDR Klebsiella Sensitive to meropenem. Review of Systems Review of Systems: All systems reviewed & are unremarkable except as noted in HPI and below Exam Narrative: Awake and alert and lying in bed. Nontoxic. No respiratory difficulty. No significant abdominal distention. Left leg reviewed without dressing 07/18 and noted to have decreased erythema since admission. Also with decrease in edema --skin is wrinkling. Distal leg stasis dermatitis with hemosiderin deposition and skin flaking persists.Today, dressing left intact which is clean. More proximal leg not covered by dressing exhibits cellulitis border markings which document the receding of the erythema over time. Right leg without significant edema or evidence of chronic stasis dermatitis. Objective Data Vital Signs Vital Signs: Vital Signs - 24 hr 07/18/25 14:00 07/18/25 14:05 07/18/25 14:20 Temperature 98.4 F Pulse Rate 72 Respiratory Rate 14 Blood Pressure 154/87 H Pulse Oximetry 96 Oxygen Delivery Room Air Room Air 07/18/25 20:00 07/18/25 21:36 07/19/25 04:09 Temperature 98.4 F 97.9 F Pulse Rate 74 81 Respiratory Rate 18 20 Blood Pressure 170/62 H 174/71 H Pulse Oximetry 95 96 Oxygen Delivery Room Air 07/19/25 08:07 07/19/25 08:09 07/19/25 08:11 Temperature Pulse Rate 87 87 85 Respiratory Rate 18 18 16 Blood Pressure Pulse Oximetry 96 Oxygen Delivery Room Air Intake/Output Intake/Output: Intake & Output 07/16/25 07/17/25 07/18/25 07/19/25 23:59 23:59 23:59 23:59 Intake Total 768.8 813 1608 768 Output Total 1250 4050 700 600 Balance -481.2 -3237 908 168 Meds/Results Medications: Active Medications Generic Name Dose Route Start Last Admin Trade Name Freq PRN Reason Stop Dose Admin Acetaminophen 1,000 mg 07/15/25 21:00 07/19/25 08:39 Acetaminophen 500 Mg Tablet PO 1,000 mg QID KAVITHA Administration Albuterol 2.5 mg 07/14/25 06:13 07/14/25 08:03 Albuterol Sulfate Neb 2.5 Mg/3 Ml Inh INHALATION 2.5 mg Q4H PRN Administration Shortness Of Breath Or Wheezing Alprazolam 1 mg 07/14/25 18:41 07/19/25 08:43 Alprazolam (*Crx) 0.5 Mg Tablet PO 1 mg QID PRN Administration Anxiety Amlodipine Besylate 5 mg 07/14/25 09:00 07/19/25 08:39 Amlodipine Besylate 5 Mg Tablet PO 5 mg DAILY KAVITHA Administration Atorvastatin Calcium 20 mg 07/14/25 21:00 07/18/25 20:59 Atorvastatin 20 Mg Tablet PO 20 mg QHS KAVITHA Administration Bisacodyl 5 mg 07/16/25 09:00 07/19/25 08:41 Bisacodyl 5 Mg Tablet Ec PO 5 mg QAM KAVITHA Administration Budesonide 0.5 mg 07/14/25 08:00 07/19/25 08:05 Budesonide Respule Neb 0.5 Mg/2 Ml Amp INHALATION 0.5 mg DAILYRT KAVITHA Administration Calcitriol 0.25 mcg 07/15/25 09:00 07/18/25 12:31 Calcitriol 0.25 Mcg Capsule PO 0.25 mcg MoWeFr@0900 KAVITHA Administration Clopidogrel Bisulfate 75 mg 07/14/25 09:00 07/19/25 08:39 Clopidogrel Bisulfate 75 Mg Tablet PO 75 mg DAILY KAVITHA Administration Enoxaparin Sodium 40 mg 07/15/25 09:00 07/19/25 08:40 Enoxaparin 40 Mg/0.4 Ml Syringe SUB-Q 40 mg DAILY KAVITHA Administration Escitalopram Oxalate 10 mg 07/14/25 09:00 07/19/25 08:40 Escitalopram Oxalate 10 Mg Tablet PO 10 mg QAM KAVITHA Administration Hydralazine HCl 10 mg 07/14/25 06:13 Hydralazine 10 Mg Tablet PO TID PRN Hypertension Meropenem 1 gm/ Sodium 100 mls @ 200 mls/hr 07/17/25 21:00 07/19/25 08:40 Chloride IVPB 07/24/25 09:29 200 mls/hr Q12HR KAVITHA Administration Irbesartan 150 mg 07/14/25 09:00 07/19/25 08:40 Irbesartan 150 Mg Tablet PO 150 mg QAM KAVITHA Administration Levothyroxine Sodium 75 mcg 07/14/25 06:50 07/19/25 06:06 Levothyroxine Sodium 75 Mcg Tablet PO 75 mcg DAILY@0630 KAVITHA Administration Montelukast Sodium 10 mg 07/14/25 09:00 07/19/25 08:40 Montelukast Sodium 10 Mg Tablet PO 10 mg DAILY KAVITHA Administration Ondansetron HCl 4 mg 07/17/25 08:06 07/17/25 08:12 Ondansetron Inj 4 Mg/2 Ml Vial IV PUSH 4 mg Q4H PRN Administration Nausea And Vomiting Oxycodone HCl 5 mg 07/16/25 17:11 07/18/25 15:48 Oxycodone Hcl (*Crx) 5 Mg Tab Ir PO 5 mg Q4H PRN Administration Moderate Pain (4-6) Oxycodone HCl 5 mg 07/16/25 17:13 07/16/25 17:49 Oxycodone Hcl (*Crx) 5 Mg Tab Ir PO 5 mg Q4H PRN Administration Severe Pain Oxycodone HCl 2.5 mg 07/16/25 17:14 Oxycodone Hcl (*Crx) 2.5 Mg Tab Ir PO Q4H PRN Severe Pain Pantoprazole Sodium 40 mg 07/14/25 09:00 07/19/25 08:40 Pantoprazole 40 Mg Tablet PO 08/13/25 08:59 40 mg DAILY KAVITHA Administration Polyethylene Glycol 17 gm 07/15/25 16:40 07/19/25 08:47 Polyethylene Glycol 3350 17 Gm Powd.Pack PO Not Given QAM [facility] Senna 8.6 mg 07/15/25 21:00 07/18/25 20:59 Sennosides 8.6 Mg Tablet PO 8.6 mg HS KAVITHA Administration Spironolactone 25 mg 07/14/25 09:00 07/19/25 08:39 Spironolactone 25 Mg Tablet PO 25 mg DAILY KAVITHA Administration Radiology Results: ITS Impressions Head CT 07/14/25 07:24 IMPRESSION: 1. Stable moderate nonspecific cerebral white matter disease, which likely represents chronic small vessel ischemic disease. Chest X-Ray 07/14/25 08:19 IMPRESSION: 1. Mild bibasilar atelectasis. Labs Labs: Laboratory Results - last 24 hr 07/19/25 05:39 WBC 8.7 RBC 3.15 L Hgb 8.4 L Hct 27.1 L MCV 86.0 MCH 26.7 MCHC 31.0 L RDW 15.3 H Plt Count 453 H MPV 8.8 Immature Gran % (Auto) 4.6 H Neut % (Auto) 69.1 Lymph % (Auto) 14.1 L [place] % (Auto) 8.0 Eos % (Auto) 3.5 Baso % (Auto) 0.7 Lymph # (Auto) 1.22 [place] # (Auto) 0.7 H Eos # (Auto) 0.3 Baso # (Auto) 0.1 Abs Immat Gran (auto) 0.40 H Absolute Neuts (auto) 6.0 Absolute Nucleated RBC 0.000 Nucleated RBC % 0.0 Sodium 137 Potassium 3.8 Chloride 106 Carbon Dioxide 25 Anion Gap 6 BUN 17 Creatinine 1.09 H Estim Creat Clear Calc 38 Estimated GFR 47 L Glucose 97 Calcium 8.8
--- NOTE | 2025-07-19 13:03 | P.PNIM_ITS ---
Progress Note: A&P Assessment and Plan (1) Cellulitis of leg, left: Code(s): L03.116 - Cellulitis of left lower limb Status: Acute (2) Acute UTI: Code(s): N39.0 - Urinary tract infection, site not specified Status: Acute Plan Acute Klebsiella pneumoniae UTI -urinary tract infection which is resistant to many antibiotics -antibiotics: Meropenem day 3 of 7 -discussed with infectious disease specialist, recommendation to complete 7 days of IV antibiotics -WBC down to 8.7 Left lower extremity stasis dermatitis and cellulitis -patient more likely has stasis dermatitis and chronic skin changes -unclear patient has true cellulitis -there is no erythema next to the marked area, may have resolution of cellulitis. Patient is on a week of meropenem which would treat a skin and soft tissue infection Chronic conditions -essential hypertension: Amlodipine, irbesartan, hydralazine -hyperlipidemia: Lipitor, Plavix -heart failure reduced ejection fraction: Spironolactone -bowel regimen: MiraLax, senokot, Dulcolax -GERD: Protonix -COPD: Singular, budesonide, albuterol -hypothyroidism: Levothyroxine -depression: Lexapro, Xanax -CKD3B: Calcitriol, Cr stable 1.09 Diet: Heart healthy diet DVT prophylaxis: Lovenox Code status: DNR Disposition: Will need to complete 1 week IV antibiotics, may need to go to SNF to complete antibiotics? Social: called [id number], left voice message to call back Time Spent With Patient Time: 35 minutes Subjective Date/time seen: 07/19/25 13:03 Interval history: Patient seen examined. She is doing well no new complaints. Patient denies fever, chills, nausea vomiting never. She is responding well to the meropenem. She is on day 3 of 7 for ESBL Klebsiella UTI. Left lower extremity appears to be well. She has a complaint of stasis dermatitis as well. Will continue antibiotics and discussed with case management for discharge plan. I discussed with infectious disease specialist. Review of Systems Review of Systems: 10 point ROS complete, negative other th an what is specified in HPI. Exam Narrative: - GENERAL: Pleasant older woman in No a cute distress. Well-nourished. - EYES: EOMI. Anicteric. - HENT: Moist mucous membranes. - LUNGS: Clear to auscultation bilateral ly, no wheezing, rhonchi, or rales. - CARDIOVASCULAR: Regular rate and rhyth m. No murmur. No JVD. - ABDOMEN: Soft, non-tender and non-dist ended. No palpable masses. - EXTREMITIES: Trace edema. Peripheral pulses 2+. Non-tender. Left lower extremity dressing clean dry intact, no erythema below the marked areas suggesting improvement of cellulitis - NEUROLOGIC: No focal neurological defi cits. CN II-XII grossly intact. - PSYCHIATRIC: Awake, Alert and oriented . Appropriate mood and affect. Objective Data Vital Signs Vital Signs: Vital Signs - 24 hr 07/18/25 14:00 07/18/25 14:05 07/18/25 14:20 Temperature 36.9 C Pulse Rate 72 Respiratory Rate 14 Blood Pressure 154/87 H Pulse Oximetry 96 Oxygen Delivery Room Air Room Air 07/18/25 20:00 07/18/25 21:36 07/19/25 04:09 Temperature 36.9 C 36.6 C Pulse Rate 74 81 Respiratory Rate 18 20 Blood Pressure 170/62 H 174/71 H Pulse Oximetry 95 96 Oxygen Delivery Room Air 07/19/25 08:00 07/19/25 08:07 07/19/25 08:09 Temperature Pulse Rate 87 87 Respiratory Rate 18 18 Blood Pressure Pulse Oximetry 96 Oxygen Delivery Room Air Room Air 07/19/25 08:11 Temperature Pulse Rate 85 Respiratory Rate 16 Blood Pressure Pulse Oximetry Oxygen Delivery Intake/Output Intake/Output: Intake & Output 07/16/25 07/17/25 07/18/25 07/19/25 23:59 23:59 23:59 23:59 Intake Total 768.8 813 1608 1436 Output Total 1250 4050 700 600 Balance -481.2 -3237 908 836 Meds/Results Medications: Active Medications Generic Name Dose Route Start Last Admin Trade Name Freq PRN Reason Stop Dose Admin Acetaminophen 1,000 mg 07/15/25 21:00 07/19/25 12:02 Acetaminophen 500 Mg Tablet PO 1,000 mg QID KAVITHA Administration Albuterol 2.5 mg 07/14/25 06:13 07/14/25 08:03 Albuterol Sulfate Neb 2.5 Mg/3 Ml Inh INHALATION 2.5 mg Q4H PRN Administration Shortness Of Breath Or Wheezing Alprazolam 1 mg 07/14/25 18:41 07/19/25 08:43 Alprazolam (*Crx) 0.5 Mg Tablet PO 1 mg QID PRN Administration Anxiety Amlodipine Besylate 5 mg 07/14/25 09:00 07/19/25 08:39 Amlodipine Besylate 5 Mg Tablet PO 5 mg DAILY KAVITHA Administration Atorvastatin Calcium 20 mg 07/14/25 21:00 07/18/25 20:59 Atorvastatin 20 Mg Tablet PO 20 mg QHS KAVITHA Administration Bisacodyl 5 mg 07/16/25 09:00 07/19/25 08:41 Bisacodyl 5 Mg Tablet Ec PO 5 mg QAM KAVITHA Administration Budesonide 0.5 mg 07/14/25 08:00 07/19/25 08:05 Budesonide Respule Neb 0.5 Mg/2 Ml Amp INHALATION 0.5 mg DAILYRT KAVITHA Administration Calcitriol 0.25 mcg 07/15/25 09:00 07/18/25 12:31 Calcitriol 0.25 Mcg Capsule PO 0.25 mcg MoWeFr@0900 KAVITHA Administration Clopidogrel Bisulfate 75 mg 07/14/25 09:00 07/19/25 08:39 Clopidogrel Bisulfate 75 Mg Tablet PO 75 mg DAILY KAVITHA Administration Enoxaparin Sodium 40 mg 07/15/25 09:00 07/19/25 08:40 Enoxaparin 40 Mg/0.4 Ml Syringe SUB-Q 40 mg DAILY KAVITHA Administration Escitalopram Oxalate 10 mg 07/14/25 09:00 07/19/25 08:40 Escitalopram Oxalate 10 Mg Tablet PO 10 mg QAM KAVITHA Administration Hydralazine HCl 10 mg 07/14/25 06:13 Hydralazine 10 Mg Tablet PO TID PRN Hypertension Meropenem 1 gm/ Sodium 100 mls @ 200 mls/hr 07/17/25 21:00 07/19/25 08:40 Chloride IVPB 07/24/25 09:29 200 mls/hr Q12HR KAVITHA Administration Irbesartan 150 mg 07/14/25 09:00 07/19/25 08:40 Irbesartan 150 Mg Tablet PO 150 mg QAM KAVITHA Administration Levothyroxine Sodium 75 mcg 07/14/25 06:50 07/19/25 06:06 Levothyroxine Sodium 75 Mcg Tablet PO 75 mcg DAILY@0630 KAVITHA Administration Montelukast Sodium 10 mg 07/14/25 09:00 07/19/25 08:40 Montelukast Sodium 10 Mg Tablet PO 10 mg DAILY KAVITHA Administration Ondansetron HCl 4 mg 07/17/25 08:06 07/17/25 08:12 Ondansetron Inj 4 Mg/2 Ml Vial IV PUSH 4 mg Q4H PRN Administration Nausea And Vomiting Oxycodone HCl 5 mg 07/16/25 17:11 07/18/25 15:48 Oxycodone Hcl (*Crx) 5 Mg Tab Ir PO 5 mg Q4H PRN Administration Moderate Pain (4-6) Oxycodone HCl 5 mg 07/16/25 17:13 07/16/25 17:49 Oxycodone Hcl (*Crx) 5 Mg Tab Ir PO 5 mg Q4H PRN Administration Severe Pain Oxycodone HCl 2.5 mg 07/16/25 17:14 Oxycodone Hcl (*Crx) 2.5 Mg Tab Ir PO Q4H PRN Severe Pain Pantoprazole Sodium 40 mg 07/14/25 09:00 07/19/25 08:40 Pantoprazole 40 Mg Tablet PO 08/13/25 08:59 40 mg DAILY KAVITHA Administration Polyethylene Glycol 17 gm 07/15/25 16:40 07/19/25 08:47 Polyethylene Glycol 3350 17 Gm Powd.Pack PO Not Given QAM [facility] Senna 8.6 mg 07/15/25 21:00 07/18/25 20:59 Sennosides 8.6 Mg Tablet PO 8.6 mg HS KAVITHA Administration Spironolactone 25 mg 07/14/25 09:00 07/19/25 08:39 Spironolactone 25 Mg Tablet PO 25 mg DAILY KAVITHA Administration Radiology Results: ITS Impressions Head CT 07/14/25 07:24 IMPRESSION: 1. Stable moderate nonspecific cerebral white matter disease, which likely represents chronic small vessel ischemic disease. Chest X-Ray 07/14/25 08:19 IMPRESSION: 1. Mild bibasilar atelectasis. Labs Labs: Laboratory Results - last 24 hr 07/19/25 05:39 WBC 8.7 RBC 3.15 L Hgb 8.4 L Hct 27.1 L MCV 86.0 MCH 26.7 MCHC 31.0 L RDW 15.3 H Plt Count 453 H MPV 8.8 Immature Gran % (Auto) 4.6 H Neut % (Auto) 69.1 Lymph % (Auto) 14.1 L [place] % (Auto) 8.0 Eos % (Auto) 3.5 Baso % (Auto) 0.7 Lymph # (Auto) 1.22 [place] # (Auto) 0.7 H Eos # (Auto) 0.3 Baso # (Auto) 0.1 Abs Immat Gran (auto) 0.40 H Absolute Neuts (auto) 6.0 Absolute Nucleated RBC 0.000 Nucleated RBC % 0.0 Sodium 137 Potassium 3.8 Chloride 106 Carbon Dioxide 25 Anion Gap 6 BUN 17 Creatinine 1.09 H Estim Creat Clear Calc 38 Estimated GFR 47 L Glucose 97 Calcium 8.8 Quality VTE Prophylaxis VTE prophylaxis: pharmacologic ordered Hospitalist [facility] Advance Care Plan I have confirmed that the patient's Advanced Care Plan is present, code status is documented, or surrogate decision maker is listed in patient medical record.: Yes Medication Reconciliation I have utilized all available resources to obtain, update and review the patients current medications (includes all prescriptions, OTC, herbals, cannabis, and nutritional supplements).: Yes
[2025-07-19 14:00] VITALS: BP 140/49; PULSE 86; RESP 16; TEMP 36.7; O2SAT 96
[2025-07-19] MEDS: oxyCODONE HCL (*CRX) 5 MG TAB IR PO ×2 (14:42→22:11)
[2025-07-19] MEDS: SENNOSIDES 8.6 MG TABLET PO (20:32)
[2025-07-19] MEDS: ATORVASTATIN 20 MG TABLET PO (20:32)
[2025-07-19 21:09] VITALS: BP 152/53; PULSE 81; RESP 17; TEMP 36.6; O2SAT 96
[2025-07-20] MEDS: ALPRAZolam (*CRX) 0.5 MG TABLET 1 MG PO ×4 (03:48→16:39)
[2025-07-20 05:38] LABS: Hematocrit 27.4 % (37.0-47.0); Hemoglobin 8.5 g/dL (12.0-15.0); Immature Granulocyte Percent A 4.0 % (0-0.5); Lymphocytes Absolute Auto 1.45 K/mm3 (0.9-3.2); Mean Corpuscular HGB Conc 31.0 g/dl (32-36); Mean Corpuscular Hemoglobin 27.0 pg (26-34); Mean Corpuscular Volume 87.0 fl (80-100); Nucleated Red Blood Cells Absolute Auto 0.000 K/mm3 (0.0-0.012); Nucleated Red Blood Cells Perc 0.0 % (0.0-0.2); Platelet Count Result 450 k/mm3 (150-375); Red Blood Count 3.15 M/mm3 (4.2-5.4); White Blood Count 8.7 K/mm3 (4.5-10.0)
[2025-07-20] MEDS: LEVOTHYROXINE SODIUM 75 MCG TABLET PO (05:51)
[2025-07-20 05:53] LABS: Anion Gap 3 mmol/L (4-12); Blood Urea Nitrogen 12 mg/dL (7-17); Calcium 8.8 mg/dL (8.4-10.2); Carbon Dioxide 26 mmol/L (22-30); Chloride 106 mmol/L (98-107); Estimated CRCL calculation 42 ml/min; Estimated Glomerular Filt Rate 53; Glucose 100 mg/dL (65-110); Potassium 3.5 mmol/L (3.4-5.0); Sodium 135 mmol/L (137-145)
[2025-07-20 05:55] VITALS: BP 182/68; PULSE 79; RESP 19; TEMP 36.7; O2SAT 95
[2025-07-20 07:51] VITALS: PULSE 85; RESP 16
[2025-07-20] MEDS: BUDESONIDE RESPULE NEB 0.5 MG/2 ML AMP INHALATION (07:51)
[2025-07-20 08:01] VITALS: PULSE 83; RESP 16
[2025-07-20] MEDS: ACETAMINOPHEN 500 MG TABLET 1000 MG PO ×3 (08:31→16:39)
[2025-07-20] MEDS: ENOXAPARIN 40 MG/0.4 ML SYRINGE SUB-Q (08:31)
[2025-07-20] MEDS: CLOPIDOGREL BISULFATE 75 MG TABLET PO (08:32)
[2025-07-20] MEDS: ESCITALOPRAM OXALATE 10 MG TABLET PO (08:32)
[2025-07-20] MEDS: SPIRONOLACTONE 25 MG TABLET PO (08:33)
[2025-07-20] MEDS: IRBESARTAN 150 MG TABLET PO (08:33)
[2025-07-20] MEDS: BISACODYL 5 MG TABLET EC PO (08:33)
[2025-07-20] MEDS: MONTELUKAST SODIUM 10 MG TABLET PO (08:33)
[2025-07-20] MEDS: PANTOPRAZOLE 40 MG TABLET PO (08:33)
[2025-07-20] MEDS: MEROPENEM 1 GM in SODIUM CHLORIDE 0.9% IV 100 ML 200 ML IVPB (08:34)
[2025-07-20] MEDS: LIDOCAINE 1% LOCAL INJ 2 ML AMPUL 5 ML INFILTRATE (09:20)
--- NOTE | 2025-07-20 09:37 | PCNWS ---
Weekly nutritional screen. Patient is tolerating current Heart Healthy diet with adequate intake, 75-100%. No weight loss reported. Discharge soon. No nutritional needs at this time.
--- NOTE | 2025-07-20 11:51 | P.PNINF_ITS ---
Progress Note: A&P Assessment and Plan (1) Cellulitis of leg, left: Code(s): L03.116 - Cellulitis of left lower limb Status: Acute (2) Acute UTI: Code(s): N39.0 - Urinary tract infection, site not specified Status: Acute (3) Klebsiella pneumoniae [k. pneumoniae] as the cause of diseases classified elsewhere: Code(s): B96.1 - Klebsiella pneumoniae [K. pneumoniae] as the cause of diseases classified elsewhere Status: Acute Plan ASSESSMENT: 1. Acute LLE cellulitis--better-- and occurring on top of chronic left leg stasis dermatitis. 2. Klebsiella (ESBL, MDR) UTI --on meropenem, day 4 of 7. 3. CKD 4. HTN, HL, DVT, hypothyroidism, COPD RECOMMENDATIONS: --continue meropenem, day 4 of 7. This will provide complete treatment for ESBL/ MDR Klebsiella UTI and continued coverage for left leg cellulitis. Have discontinued clindamycin. --explained to patient that resolution of left leg cellulitis does not mean complete normalization in appearance of left leg in the setting of unilateral left leg chronic stasis dermatitis. d/w pharmacy staff Exam done via telemedicine with the aid of a HIPPA protected audio/visual interface. Patient was at [facility] in [place], [place] while I was in my office in [place]. With patient consent. Subjective Date/time seen: 07/20/25 11:51 Interval history: 07/18/2025: Afebrile but with white blood cell count slightly increased to 12.5 today. Cefazolin changed to meropenem last night. Remains on clindamycin. 07/19/2025: Afebrile and white blood cell count decreased from 12.5-8.7. BUN 17 creatinine 1.09. Cellulitis improved but patient notes continued serous drainage in some bleeding from current left leg wounds. She states she has been dealing with cellulitis for the last 3 years. When asked if she needs intermittent episodes of acute inflammation by a normal-looking skin she states that for the last 3 years her left leg has exhibited edema and erythema which sounds consistent with chronic left leg stasis dermatitis. 07/20/2025: Patient sleeping while undergoing midline catheter placement. Prior to procedure she was awake, alert, and interactive. Urine 07/14 with greater than 100 wbc's. Urine culture 07/14 positive ESBL, MDR Klebsiella Sensitive to meropenem. Review of Systems Review of Systems: All systems reviewed & are unremarkable except as noted in HPI and below Exam Narrative: Awake and alert and lying in bed. Nontoxic. No respiratory difficulty. No significant abdominal distention. Left leg reviewed without dressing 07/18 and noted to have decreased erythema since admission. Also with decrease in edema --skin is wrinkling. Distal leg stasis dermatitis with hemosiderin deposition and skin flaking persists.Today, dressing left intact which is clean. More proximal leg not covered by dressing exhibits cellulitis border markings which document the receding of the erythema over time. Right leg without significant edema or evidence of chronic stasis dermatitis. Nursing to obtain left leg photos with dressing change today. Objective Data Vital Signs Vital Signs: Vital Signs - 24 hr 07/19/25 14:00 07/19/25 20:32 07/19/25 21:09 Temperature 98.0 F 97.9 F Pulse Rate 86 81 Respiratory Rate 16 17 Blood Pressure 140/49 L 152/53 H Pulse Oximetry 96 96 Oxygen Delivery Room Air 07/20/25 05:55 07/20/25 07:51 07/20/25 08:01 Temperature 98.1 F Pulse Rate 79 85 83 Respiratory Rate 19 16 16 Blood Pressure 182/68 H Pulse Oximetry 95 Oxygen Delivery Intake/Output Intake/Output: Intake & Output 07/17/25 07/18/25 07/19/25 07/20/25 23:59 23:59 23:59 23:59 Intake Total 813 1608 2426 625 Output Total 4050 700 900 700 Balance -3237 908 1526 -75 Meds/Results Medications: Active Medications Generic Name Dose Route Start Last Admin Trade Name Freq PRN Reason Stop Dose Admin Acetaminophen 1,000 mg 07/15/25 21:00 07/20/25 08:31 Acetaminophen 500 Mg Tablet PO 1,000 mg QID KAVITHA Administration Albuterol 2.5 mg 07/14/25 06:13 07/14/25 08:03 Albuterol Sulfate Neb 2.5 Mg/3 Ml Inh INHALATION 2.5 mg Q4H PRN Administration Shortness Of Breath Or Wheezing Alprazolam 1 mg 07/14/25 18:41 07/20/25 08:31 Alprazolam (*Crx) 0.5 Mg Tablet PO 1 mg QID PRN Administration Anxiety Amlodipine Besylate 10 mg 07/20/25 09:00 07/20/25 08:42 Amlodipine Besylate 10 Mg Tablet PO 10 mg DAILY KAVITHA Administration Atorvastatin Calcium 20 mg 07/14/25 21:00 07/19/25 20:32 Atorvastatin 20 Mg Tablet PO 20 mg QHS KAVITHA Administration Bisacodyl 5 mg 07/16/25 09:00 07/20/25 08:33 Bisacodyl 5 Mg Tablet Ec PO 5 mg QAM KAVITHA Administration Budesonide 0.5 mg 07/14/25 08:00 07/20/25 07:51 Budesonide Respule Neb 0.5 Mg/2 Ml Amp INHALATION 0.5 mg DAILYRT KAVITHA Administration Calcitriol 0.25 mcg 07/15/25 09:00 07/20/25 08:33 Calcitriol 0.25 Mcg Capsule PO 0.25 mcg MoWeFr@0900 KAVITHA Administration Clopidogrel Bisulfate 75 mg 07/14/25 09:00 07/20/25 08:32 Clopidogrel Bisulfate 75 Mg Tablet PO 75 mg DAILY KAVITHA Administration Enoxaparin Sodium 40 mg 07/15/25 09:00 07/20/25 08:31 Enoxaparin 40 Mg/0.4 Ml Syringe SUB-Q 40 mg DAILY KAVITHA Administration Escitalopram Oxalate 10 mg 07/14/25 09:00 07/20/25 08:32 Escitalopram Oxalate 10 Mg Tablet PO 10 mg QAM KAVITHA Administration Hydralazine HCl 10 mg 07/14/25 06:13 Hydralazine 10 Mg Tablet PO TID PRN Hypertension Meropenem 1 gm/ Sodium 100 mls @ 200 mls/hr 07/17/25 21:00 07/20/25 08:34 Chloride IVPB 07/24/25 09:29 200 mls/hr Q12HR KAVITHA Administration Irbesartan 150 mg 07/14/25 09:00 07/20/25 08:33 Irbesartan 150 Mg Tablet PO 150 mg QAM KAVITHA Administration Levothyroxine Sodium 75 mcg 07/14/25 06:50 07/20/25 05:51 Levothyroxine Sodium 75 Mcg Tablet PO 75 mcg DAILY@0630 KAVITHA Administration Montelukast Sodium 10 mg 07/14/25 09:00 07/20/25 08:33 Montelukast Sodium 10 Mg Tablet PO 10 mg DAILY KAVITHA Administration Ondansetron HCl 4 mg 07/17/25 08:06 07/17/25 08:12 Ondansetron Inj 4 Mg/2 Ml Vial IV PUSH 4 mg Q4H PRN Administration Nausea And Vomiting Oxycodone HCl 5 mg 07/16/25 17:11 07/19/25 22:11 Oxycodone Hcl (*Crx) 5 Mg Tab Ir PO 5 mg Q4H PRN Administration Moderate Pain (4-6) Oxycodone HCl 5 mg 07/16/25 17:13 07/16/25 17:49 Oxycodone Hcl (*Crx) 5 Mg Tab Ir PO 5 mg Q4H PRN Administration Severe Pain Oxycodone HCl 2.5 mg 07/16/25 17:14 Oxycodone Hcl (*Crx) 2.5 Mg Tab Ir PO Q4H PRN Severe Pain Pantoprazole Sodium 40 mg 07/14/25 09:00 07/20/25 08:33 Pantoprazole 40 Mg Tablet PO 08/13/25 08:59 40 mg DAILY KAVITHA Administration Polyethylene Glycol 17 gm 07/15/25 16:40 07/20/25 08:43 Polyethylene Glycol 3350 17 Gm Powd.Pack PO Not Given QAM KAVITHA Senna 8.6 mg 07/15/25 21:00 07/19/25 20:32 Sennosides 8.6 Mg Tablet PO 8.6 mg HS KAVITHA Administration Sodium Chloride 10 ml 07/20/25 14:00 Saline Lock Flush IV PUSH Q8HR KAVITHA Sodium Chloride 10 ml 07/20/25 09:45 Saline Lock Flush IV PUSH PRN PRN Flush Sodium Chloride 20 ml 07/20/25 09:45 Saline Lock Flush IV PUSH PRN PRN after blood draws Spironolactone 25 mg 07/14/25 09:00 07/20/25 08:33 Spironolactone 25 Mg Tablet PO 25 mg DAILY KAVITHA Administration Radiology Results: ITS Impressions Head CT 07/14/25 07:24 IMPRESSION: 1. Stable moderate nonspecific cerebral white matter disease, which likely represents chronic small vessel ischemic disease. Chest X-Ray 07/14/25 08:19 IMPRESSION: 1. Mild bibasilar atelectasis. Labs Labs: Laboratory Results - last 24 hr 07/20/25 05:20 WBC 8.7 RBC 3.15 L Hgb 8.5 L Hct 27.4 L MCV 87.0 MCH 27.0 MCHC 31.0 L RDW 15.2 H Plt Count 450 H MPV 8.7 Immature Gran % (Auto) 4.0 H Neut % (Auto) 64.9 Lymph % (Auto) 16.8 L [place] % (Auto) 8.4 Eos % (Auto) 5.0 H Baso % (Auto) 0.9 Lymph # (Auto) 1.45 [place] # (Auto) 0.7 H Eos # (Auto) 0.4 H Baso # (Auto) 0.1 Abs Immat Gran (auto) 0.35 H Absolute Neuts (auto) 5.6 Absolute Nucleated RBC 0.000 Nucleated RBC % 0.0 Sodium 135 L Potassium 3.5 Chloride 106 Carbon Dioxide 26 Anion Gap 3 L BUN 12 D Creatinine 0.98 Estim Creat Clear Calc 42 Estimated GFR 53 L Glucose 100 Calcium 8.8
--- NOTE | 2025-07-20 11:59 | PM.DS ---
DS: Admitting Diagnosis Discharge Date 07/20/25 Admitting Diagnosis Urinary tract infection and left lower extremity cellulitis DS: Discharge Diagnosis Discharge Diagnosis (1) Acute UTI: Code(s): N39.0 - Urinary tract infection, site not specified Status: Acute Plan Acute Klebsiella pneumoniae UTI -urinary tract infection which is resistant to many antibiotics -antibiotics: Meropenem day 4 of 7, plan to complete through 07/23 -discussed with infectious disease specialist, recommendation to complete 7 days of IV antibiotics -WBC down to 8.7 Left lower extremity stasis dermatitis and cellulitis -patient more likely has stasis dermatitis and chronic skin changes -unclear patient has true cellulitis, likely more chronic -there is no erythema next to the marked area, may have resolution of cellulitis. Patient is on a week of meropenem which would treat a skin and soft tissue infection Chronic conditions -essential hypertension: Amlodipine, irbesartan, hydralazine -hyperlipidemia: Lipitor, Plavix -heart failure reduced ejection fraction: Spironolactone -bowel regimen: MiraLax, senokot, Dulcolax -GERD: Protonix -COPD: Singular, budesonide, albuterol -hypothyroidism: Levothyroxine -depression: Lexapro, Xanax -CKD3B: Calcitriol, Cr stable 1.09 Diet: Heart healthy diet DVT prophylaxis: Lovenox Code status: DNR Disposition: SNF ABx through 07/23 Social: called [id number] Jacobo to update DS: Summary Hospital Course Reason for hospitalization: Antibiotics for UTI and cellulitis Hospital Course: Patient 89-year-old female from nursing home facility with past medical history essential hypertension, hyperlipidemia, heart failure reduced ejection fraction, GERD, COPD, hypothyroidism, depression, CKD 3B, constipation presents to ED with complaints of erythema and swelling of left lower extremity on 07/14/25. Patient has recurrent cellulitis of left lower extremity. On workup she was also found to have ESBL Klebsiella UTI. She was seen by ID specialist Dr. Boone who recommended a week of meropenem (originally with cefazolin, clindamycin, changed to meropenem) for the UTI and at would also treat the left lower extremity cellulitis. She was hospitalized from 07/14-07/20. There appears to be resolution and improvement of the erythema decreasing from the marked areas. We will make antibiotics to 1 week which will complete on 07/23. Patient will likely not have complete resolution of the skin changes as there is underlying stasis dermatitis. Midline placed for IV antibiotics. At time of discharge her labs are stable, vitals stable, patient is stable for discharge to SNF. Patient was found to be hypertensive and we uptitrated amlodipine from 5 mg to 10 mg. PCP to follow up on blood pressure management. Status at Discharge Cognitive/behavioral status at discharge: Baseline Time Spent with Patient Time attestation: Total time spent providing and/or coordinating discharge services: 35 minutes Exam Narrative: - GENERAL: Pleasant older woman in No acute distress. Well-nourished. - EYES: EOMI. Anicteric. - HENT: Moist mucous membranes. - LUNGS: Clear to auscultation bilaterally, no wheezing, rhonchi, or rales. - CARDIOVASCULAR: Regular rate and rhythm. No murmur. No JVD. - ABDOMEN: Soft, non-tender and non-distended. No palpable masses. - EXTREMITIES: Trace edema. Peripheral pulses 2+. Non-tender. Left lower extremity dressing clean dry intact, no erythema below the marked areas suggesting improvement of cellulitis. Exam of the left lower extremity there is some stasis dermatitis skin changes, no purulence seen. - NEUROLOGIC: No focal neurological deficits. CN II-XII grossly intact. - PSYCHIATRIC: Awake, Alert and oriented. Appropriate mood and affect. DS: Data Data Completed and Pending Labs on day of discharge: Labs from last 24 hours 07/20/25 05:20 WBC 8.7 RBC 3.15 L Hgb 8.5 L Hct 27.4 L MCV 87.0 MCH 27.0 MCHC 31.0 L RDW 15.2 H Plt Count 450 H MPV 8.7 Immature Gran % (Auto) 4.0 H Neut % (Auto) 64.9 Lymph % (Auto) 16.8 L [place] % (Auto) 8.4 Eos % (Auto) 5.0 H Baso % (Auto) 0.9 Lymph # (Auto) 1.45 [place] # (Auto) 0.7 H Eos # (Auto) 0.4 H Baso # (Auto) 0.1 Abs Immat Gran (auto) 0.35 H Absolute Neuts (auto) 5.6 Absolute Nucleated RBC 0.000 Nucleated RBC % 0.0 Sodium 135 L Potassium 3.5 Chloride 106 Carbon Dioxide 26 Anion Gap 3 L BUN 12 D Creatinine 0.98 Estim Creat Clear Calc 42 Estimated GFR 53 L Glucose 100 Calcium 8.8 Imaging Radiologist's impression: Head CT 07/14 IMPRESSION: 1. Stable moderate nonspecific cerebral white matter disease, which likely represents chronic small vessel ischemic disease. CXR 07/14 IMPRESSION: 1. Mild bibasilar atelectasis. Discharge Plan Discharge Attending physician on discharge: Antionette Ferrell Consulting providers: Sammie London; Claudette Soto Discharging Clinician: Antionette Ferrell Anticipated Discharge Date/Time: 07/20/25 11:27 Patient Disposition: SNF Activity: january shower Diet: heart healthy Discharge Instructions: Please continue antibiotic meropenem through 07/23 for the ESBL Klebsiella urinary tract infection. Follow-up with wound care team for left lower extremity. We have increased amlodipine from 5 mg to 10 mg for high blood pressure, follow-up with PCP for further management of hypertension. Patient Instructions: Antibiotic Form, Amlodipine (By mouth), Meropenem (By injection) Patient Language: Latvian Stand Alone Forms: General Discharge Information Follow-up/Referrals: Irving Montes MD [Primary Care Provider, [facility]] Referral Note: follow up LLE stasis dermatitis and wound care. hospitalization for ESBL klebsiella UTI Discharge Medications: New amlodipine 10 mg Tablet 10 mg PO DAILY 30 Days Qty: 30 0RF meropenem 1 gram recon soln 1 g IV Q12H 4 Days Rx Instructions: through 07/23/25 Continued acetaminophen 500 mg tablet 500 mg PO Q6H PRN (Reason: fever or pain) atorvastatin [Lipitor] 20 mg tablet 20 mg PO QHS Qty: 90 1RF hydralazine 10 mg tablet 10 mg PO TID PRN (Reason: hypertension) Qty: 60 0RF Rx Instructions: take if BP >160/100 econazole nitrate 1 % cream 1 applic topical BID Qty: 85 1RF Aquaphor Original 41 % ointment 1 applic topical DAILY PRN (Reason: dry skin) Qty: 396 2RF budesonide 0.5 mg/2 mL suspension for nebulization 0.5 mg inhalation DAILY Rx Instructions: 1 vial inhale orally Q12hrs prn COPD nystatin 100,000 unit/gram powder 1 applic topical .Q 8hrs Rx Instructions: Apply to [place] area for rash and irritation multivitamin,[id number]-[id number]-min [Thera-M Multiple Vitamins] 1 tablet PO DAILY bumetanide 2 mg tablet 1 mg PO DAILY escitalopram oxalate 10 mg tablet 10 mg PO QAM Qty: 90 1RF esomeprazole magnesium 40 mg capsule,delayed release(DR/EC) 40 mg PO DAILY Qty: 90 1RF montelukast 10 mg tablet 10 mg PO DAILY Qty: 90 1RF albuterol sulfate 90 mcg/actuation HFA aerosol inhaler 2 inh inhalation Q4H Qty: 8.5 3RF albuterol sulfate 2.5 mg /3 mL (0.083 %) solution for nebulization 2.5 mg INHALATION Q4H PRN (Reason: shortness of breath or wheezing) Qty: 90 2RF calcitriol 0.25 mcg capsule 0.25 mcg PO 3XW Qty: 90 3RF Rx Instructions: Take on Mondays, Wednesdays, and Fridays tramadol 50 mg tablet 50 mg PO Q8H PRN (Reason: pain) Qty: 60 1RF levothyroxine 75 mcg tablet 75 mcg PO DAILY Qty: 30 5RF ondansetron HCl 4 mg tablet See Rx Instructions .ROUTE .COMPLEX Qty: 30 3RF Dose Instruction: 4 MG ORALLY DAILY NEEDED FOR NAUSEA AND VOMITING Rx Instructions: 4 MG ORALLY DAILY NEEDED FOR NAUSEA AND VOMITING spironolactone 25 mg tablet 25 mg PO DAILY Qty: 30 2RF alprazolam 1 mg tablet 1 mg PO QID Qty: 120 1RF clopidogrel [Plavix] 75 mg tablet 75 mg PO DAILY Qty: 30 2RF irbesartan 150 mg tablet See Rx Instructions .ROUTE .COMPLEX Qty: 90 0RF Dose Instruction: TAKE ONE TABLET (150 MG) BY MOUTH DAILY Rx Instructions: TAKE ONE TABLET (150 MG) BY MOUTH DAILY Discontinued albuterol sulfate [Ventolin HFA] 90 mcg/actuation HFA aerosol inhaler 2 inh inhalation Q4H PRN (Reason: COPD) amlodipine 5 mg tablet 5 mg PO DAILY Qty: 90 2RF Date of admission: 07/14/25 02:06 Primary Care Provider: Irving Montes Admitting Provider: Bushra Burton Attending physician on admission: Bushra Burton Condition: Stable Hospitalist MIPS Heart Failure (Exclusion) Patient has history of Heart Transplant or Left Ventricular Assistive Device?: No IF YES, STOP HERE Heart Failure (Qualifier) Patient has current or prior documentation of LVEF less than or equal to 40%, or mod/servere depressed LVSF?: No IF NO, STOP HERE
[2025-07-20 14:00] VITALS: BP 159/49; PULSE 70; RESP 20; TEMP 36.5; O2SAT 98
[2025-07-20] MEDS: SALINE LOCK FLUSH 10 ML IV PUSH (14:25)
== END 2025-07-20 18:45 | DRG 603 ==
LOC: ANHED 07-14 02:04 → ANH3MEDSUR 07-14 02:35
PROVIDERS: Nurse Practitioner Acute Care; Nurse Practitioner Gerontology; Admitting Provider Internal Medicine; Emergency Provider Emergency Medicine; PCP Family Medicine; Visit Provider Student in an Organized Health Care Education/Training Program
DX: L03.116 Cellulitis of left lower limb (principal); N39.0 Urinary tract infection, site not specified; I13.0 Hypertensive heart and chronic kidney disease with heart failure and stage 1 through stage 4 chronic kidney disease, or unspecified chronic kidney disease; D83.9 Common variable immunodeficiency, unspecified; N18.4 Chronic kidney disease, stage 4 (severe); I50.32 Chronic diastolic (congestive) heart failure; Z16.24 Resistance to multiple antibiotics; I87.2 Venous insufficiency (chronic) (peripheral); E03.9 Hypothyroidism, unspecified; K74.69 Other cirrhosis of liver; K59.00 Constipation, unspecified; E66.01 Morbid (severe) obesity due to excess calories; K21.9 Gastro-esophageal reflux disease without esophagitis; F41.9 Anxiety disorder, unspecified; F32.A Depression, unspecified; J44.89 Other specified chronic obstructive pulmonary disease; G47.33 Obstructive sleep apnea (adult) (pediatric); K58.9 Irritable bowel syndrome, unspecified; D63.1 Anemia in chronic kidney disease; D50.9 Iron deficiency anemia, unspecified; I65.22 Occlusion and stenosis of left carotid artery; M47.896 Other spondylosis, lumbar region; B96.1 Klebsiella pneumoniae [K. pneumoniae] as the cause of diseases classified elsewhere; Z20.822 Contact with and (suspected) exposure to COVID-19; Z66 Do not resuscitate; E55.9 Vitamin D deficiency, unspecified; F12.90 Cannabis use, unspecified, uncomplicated; F10.90 Alcohol use, unspecified, uncomplicated; Z96.643 Presence of artificial hip joint, bilateral; Z68.36 Body mass index [BMI] 36.0-36.9, adult; Z86.718 Personal history of other venous thrombosis and embolism; Z87.891 Personal history of nicotine dependence; Z87.19 Personal history of other diseases of the digestive system
CPT/HCPCS: 36410; 36415; 70450; 71045; 80048; 80053; 81001; 83605; 83690; 83735; 84100; 85025; 85027; 85652; 86140; 87040; 87086; 87186; 87637; 93005; 94640; 96361; 96365; 97161; 97165; 99285; J0690; A9270; C1751; J0696; J1650; J2003; J2185; J2405; J3373; J7030; J7120